=== PATIENT | female | born 1990 | race Caucasian/White ===

== ENCOUNTER 2021-08-18 04:40 | Emergency (ER) | payer OTHER, SELFPAY ==
[2021-08-18] VITALS (10 sets, daily range): BP systolic 105–126; BP diastolic 49–80; PULSE 81–96; RESP 15–19; TEMP 36.1–36.3; O2SAT 99–100; BMI 35.0
--- NOTE | 2021-08-18 05:05 | ED.GENADULT ---
HPI - General Adult General Chief complaint: Vaginal Bleeding <Kobe Escobar MD - Last Filed: 08/19/21 10:53> Stated complaint: Hemorrhaging <Kobe Escobar MD - Last Filed: 08/19/21 10:53> Time Seen by Provider: 08/18/21 04:40 <Kobe Escobar MD - Last Filed: 08/19/21 10:53> History of Present Illness HPI narrative: 31-year-old woman presenting to the emergency department 7 weeks from a . she had 3 episodes of hemorrhage , 1 intraoperative where she received 2 units of packed cells, then on July 16 her she received an iron infusion and another on August 06 where she received 4 units of packed cells. course also complicated by preeclampsia and chorioamnionitis. She has received a total of 6 units packed red cells. Please see Summation by Dr. Eaton below. in 3 days time is to have a laparoscopy and hysteroscopy. Had continued on iron supplementation. At this visit on August 11 was discontinued on norethindrone transitioned to other oral contraceptive as below. 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 She notes a big gush of Vaginal blood, just poured out. does not notice bleeding at the moment she is flat in the bed But says when she gets up it will likely start pouring out at least historically. She did manage to crawl into the bathtub then and fainted. She is not having any abdominal pain right now but did have some cramps with ambulance on the way in. No fever. she was nauseated. Has received Zofran from EMS. Not nauseated now. Is thirsty. EMS also gave a gram of TXA. What follows here are selections from Dr. Eaton's summary note from clinic visit on 08/11/2021 30-year-old 1 para 1001 presents today for 6 week visit and follow up of recent hospitalization. Patient had a delivery on 06/29/2021 for arrest of descent, failed vacuum, chorioamnionitis, OP presentation asynclitic.. Intraoperative findings at time of were notable for distorted uterine anatomy, including an elongated thin appearance to the uterus and of firm mass surrounding the proximal portion of the right fallopian tube, suspected fibroid. Intraoperative images of this mass are reviewed today, and intraoperative findings are discussed with Dr. Webb, the surgeon in this case. She emphasized that the origin of the right tube was very low, adjacent to the lower uterine segment, and the tube was abnormally short in appearance. Surgery was complicated by intraoperative hemorrhage. Postoperative course was complicated by anemia and she did receive IV iron and 2 units of packed red blood cells. Had chorioamnionitis requiring antibiotics. Patient was readmitted for preeclampsia with severe features in her first week and was treated with IV magnesium. She was on nifedipine for some time, but has not been on it since 07/16/21. BP is normal today. She went on to have two episodes of hemorrhage requiring readmission. The first was 07/16-04/08. She was stable upon presentation. Hb was in 8 range. She reported passage of what looked like tissue prior to presentation, and bleeding subsequently lessened. Pelvic ultrasound showed a thin, uniform endometrial stripe at 5 mm. A fibroid was noted along the left myometrium and serosa of the lower uterine segment measuring 5.4 cm which is erroneously described as 5.4 mm in the report. Bleeding remained scant throughout hospital course. She was treated with oral methergine with the empiric diagnosis of subinvolution of placental implantation site. She was seen by Yeni Scherer at 2 weeks . May ordered a repeat pelvic ultrasound. Findings this time were notable for an area of hypoechoic fluid with areas of mixed echogenicity measuring 3.3 by 2.8 x 2.3 cm in the region of the previously described fibroid. Uterus was of normal dimensions. Endometrial stripe 4 mm. Ovaries were normal. The impression was that of a hematoma adjacent to the scar within the left side of the lower uterine segment. She was readmitted August 06 through 08/07/2021 for hemorrhage. Hemoglobin decreased from 9.2-7.8 during this time. She was treated with high-dose Provera, 3 times a day, and continues at this dose today. MRI ordered during the hospitalization on 08/06/2021 showed fluid consistent with blood in the uterine cavity communicating with a 3.5 x 2.8 x 2.6 cm fluid pocket in the left uterine wall at the level of the scar. She was transfused 4 u PRBCs and discharge Hb was 9.9. Assessment 1. Six weeks status post primary transverse section for arrest of descent 2. Status post readmission for severe preeclampsia 1st week . Now normotensive off antihypertensives. 3. Suspected uterine anomaly at time of . 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 4. Maddie tubal mass at time of . Well this mass was described along the right, abnormal appearing tube, that was implanted low in the uterus, all subsequent imaging has suggested an abnormality along the left incision. It is variously been described as a fibroid, a fluid collection, abscess versus hematoma. 5. 2 episodes of hemorrhage , 1 occurring last week. He not suspect retained products of conception given the appearance of her endometrial stripe. I do not suspect infection given that she is afebrile and has had a normal white count. I no longer suspect sub involution of the implantation site, given that she is 6 weeks . I am concerned about the variable appearance of this maddie tubal mass and any contribution it may have to her bleeding. 6. Situational anxiety 7. Ringworm on dorsum of right hand and wrist Plan Begin to clotrimazole 1% cream twice daily for 2 weeks for treatment of ringworm. After extended discussion of contraceptive options, I favor combined oral contraceptives. I do not support insertion of a Mirena IUD with any concerns regarding the healing of the scar. Neither can I support placement of Nexplanon at this time, is Nexplanon may be associated with erratic bleeding. Prescription of Loestrin to be sent to the pharmacy. Begin treatment of situational anxiety with hydroxyzine 25-50 mg 4 times a day as needed. After extended discussion with Dr. 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 Specifically, I plan to recommend laparoscopy with excision of this mass or drainage of this fluid collection, possible removal of the right tube, and hysteroscopy. I have contacted Dr. Chua in radiology, who plans to review the 2 US and one MRI and get back to me. I will contact patient with these recommendations. We initially planned on f/u visit in 2 weeks, but I will call her before this time. I recommend continuation of ferrous sulfate for anemia. 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 2009 Encounter for supervision of normal first , first trimester Obesity (BMI 35.0-39.9 without comorbidity) Abdominal pain Anemia Anemia due to acute blood loss delivery delivered Chorioamnionitis, delivered, current hospitalization Delayed hemorrhage Lactating mother bleeding Pre-eclampsia Pre-eclampsia, severe, condition Uterine fibroid <Kobe Escobar MD - Last Filed: 08/19/21 10:53> Related Data Home medications: Home Medications Medication Instructions Recorded Confirmed hydroxyzine pamoate 25 mg capsule mg 08/18/21 iron 08/18/21 norethindrone acetate 1.5 tab 08/18/21 mg-ethinyl estradiol 30 mcg tablet (Junel) ondansetron HCl 4 mg tablet mg 08/18/21 vits no.130-ferrous fum tab 08/18/21 27 mg iron-folic acid 800 mcg tablet ( Vitamin) <Kobe Escobar MD - Last Filed: 08/19/21 10:53> Allergies/adverse reactions: Allergies Allergy/AdvReac Type Severity Reaction Status Date / Time promethazine Allergy Intermediate Verified 08/19/21 10:26 <Kobe Escobar MD - Last Filed: 08/19/21 10:53> Review of Systems Status of ROS: Reports: 10 or more systems reviewed and unremarkable except as noted in History and below <Kobe Escobar MD - Last Filed: 08/19/21 10:53> [facility] Social History: Social History Smoking Status: Never smoker How often do you have a drink containing alcohol: 2-4 times a month How often do you have six or more drinks on one occasion: Never AUDIT-C Alcohol total score: 2 Non-prescribed substance use: denies use service: No <Kobe Escobar MD - Last Filed: 08/19/21 10:53> Exam Narrative: Exam Narrative: Calm. Pleasant. Seems a little blunted affect. Skin is warm and dry. There is blood staining the left lower leg and foot. IV has been placed in the left foot. Oropharynx a little sticky breathing easily. Lungs appear to be clear. CV RRR no mrg appreciated. Abdomen is soft. Mild soreness in the suprapubic area. Abdominal striae a are noted. Quick evaluation labial area shows oozing of older blood between the labia. Blood is clotting. extremities as above. Moving all extremities without difficulty. well perfused peripherally.. <Kobe Escobar MD - Last Filed: 08/19/21 10:53> Const: Vital Signs, click to edit/add: Vital Signs - 24 hr 08/18/21 10:00 Temperature 97.3 F L Pulse Rate [Apical ] 90 Respiratory Rate 18 Blood Pressure [Le ft Upper Arm] 126/72 Pulse Oximetry 100 <Kobe Escobar MD - Last Filed: 08/19/21 10:53> Course Course Hospital Course: over time here Ms. Castelan Has remained vitally well. I did do recheck exam with speculum. There does not appear to be new/active bleeding. Perhaps some oozing of some old blood definitely less than with 1st exam. This is visualized at the distal aspect of the speculum. Hemoglobin returned at 9.2 with hematocrit of 28.2. This was collected after 2 L of fluid resuscitation. Surely not fully normalized otherwise. Did speak to Dr. Hartmann on-call with Ob. Understandably no interventions planned at this time. I had discussed potential admission for serial hemoglobins. I am anticipating recheck here in the emergency department with further recommendations pending that result. Ms. Castelan does have a preoperative visit tomorrow where I anticipate repeat hemoglobin and potential need for pre op transfusion. <Kobe Escobar MD - Last Filed: 08/19/21 10:53> Vital Signs Vital signs: Initial Vital Signs Temperature 96.9 F L 08/18/21 04:40 Temperature Source Temporal Artery Scan 08/18/21 04:40 Pulse Rate 85 08/18/21 04:40 Pulse Rhythm 08/18/21 04:40 Respiratory Rate 18 08/18/21 04:40 Blood Pressure 109/70 08/18/21 04:40 Blood Pressure Mean 83 08/18/21 04:40 Blood Pressure Position Supine 08/18/21 04:40 Pulse Oximetry 100 08/18/21 04:40 Oxygen Delivery Method 08/18/21 04:40 Vital Signs Temperature 96.9 F L 08/18/21 04:40 Pulse Rate 85 08/18/21 04:40 Respiratory Rate 18 08/18/21 04:40 Blood Pressure 109/70 08/18/21 04:40 Pulse Oximetry 100 08/18/21 04:40 Temperature 97.3 F L 08/18/21 10:00 Pulse Rate 90 08/18/21 10:00 Respiratory Rate 18 08/18/21 10:00 Blood Pressure 126/72 08/18/21 10:00 Pulse Oximetry 100 08/18/21 10:00 <Kobe Escobar MD - Last Filed: 08/19/21 10:53> Medical Decision Making MDM Narrative Medical decision making narrative: Hand off at change of shift pending repeat hemoglobin <Kobe Escobar MD - Last Filed: 08/19/21 10:53> Medical Records Medical records reviewed: Yes I reviewed the patient's medical records <Kobe Escobar MD - Last Filed: 08/19/21 10:53> Medical records narrative: I discussed this case with Dr. Hartmann. understanding nothing medically to do at this time and given complicated case best to be cared for by prior provider with plan has already been put in place. Recommending close followup tomorrow which would correlate with preoperative evaluation already scheduled. <Kobe Escobar MD - Last Filed: 08/19/21 10:53> Lab Data Lab results reviewed: Yes I reviewed the patient's lab results <Kobe Escobar MD - Last Filed: 08/19/21 10:53> Labs: Lab Results 08/18/21 08/18/21 08/18/21 Range/Units 06:33 06:33 06:33 WBC 12.26 H (4.50-11.00) K/uL RBC 3.02 L (4.00-5.20) m/uL Hgb 9.2 L (12.0-16.0) gm/dL Hct 28.2 L (33.0-51.0) % MCV 93 (80-100) fL MCH 31 (26-34) pg MCHC 33 (32-36) gm/dL RDW Coeff of Kay 12.8 (11.5-15.5) % Plt Count 303 (140-440) K/uL Neut % (Auto) 84.4 H (42.0-72.0) % Lymph % (Auto) 10.4 L (20-44) % Gibson % (Auto) 3.6 (0.0-11.0) % Eos % (Auto) 0.7 (0.0-7.0) % Baso % (Auto) 0.2 (0.0-3.0) % Neut # (Auto) 10.30 H (1.7-7.0) K/uL Lymph # (Auto) 1.30 (0.90-2.90) K/uL Gibson # (Auto) 0.40 (0.00-0.90) K/UL Eos # (Auto) 0.10 (0.00-0.50) K/uL Baso # (Auto) 0.00 (0.00-0.30) K/uL Abs Immat Gran (auto) 0.08 (0.00-0.30) K/uL Sodium 139 (135-149) mmol/L Potassium 4.1 (3.6-5.1) mmol/L Chloride 113 (96-114) mmol/L Carbon Dioxide 21 (20-32) mmol/L BUN 11 (5-24) mg/dL Creatinine 1.0 (0.5-1.5) mg/dL Estimated Creat Clear 81.47 Glucose 107 (60-115) mg/dL Calcium 7.7 L (8.4-10.6) mg/dL Total Bilirubin 0.2 (0.1-1.5) mg/dL Direct Bilirubin 0.2 (0.0-0.5) mg/dL AST 14 (12-35) U/L ALT 9 (4-35) U/L Alkaline Phosphatase 54 (40-150) U/L Total Protein 5.3 L (6.0-8.3) g/dL Albumin 3.2 L (3.3-5.0) g/dL SARS-CoV-2 (PCR) (Negative) Blood Type O Positive Antibody Screen NEGATIVE Crossmatch (AHG) See Detail 08/18/21 08/18/21 Range/Units 08:12 09:10 WBC 10.32 (4.50-11.00) K/uL RBC 2.98 L (4.00-5.20) m/uL Hgb 8.9 L (12.0-16.0) gm/dL Hct 27.9 L (33.0-51.0) % MCV 94 (80-100) fL MCH 30 (26-34) pg MCHC 32 (32-36) gm/dL RDW Coeff of Kay (11.5-15.5) % Plt Count 316 (140-440) K/uL Neut % (Auto) (42.0-72.0) % Lymph % (Auto) (20-44) % Gibson % (Auto) (0.0-11.0) % Eos % (Auto) (0.0-7.0) % Baso % (Auto) (0.0-3.0) % Neut # (Auto) (1.7-7.0) K/uL Lymph # (Auto) (0.90-2.90) K/uL Gibson # (Auto) (0.00-0.90) K/UL Eos # (Auto) (0.00-0.50) K/uL Baso # (Auto) (0.00-0.30) K/uL Abs Immat Gran (auto) (0.00-0.30) K/uL Sodium (135-149) mmol/L Potassium (3.6-5.1) mmol/L Chloride (96-114) mmol/L Carbon Dioxide (20-32) mmol/L BUN (5-24) mg/dL Creatinine (0.5-1.5) mg/dL Estimated Creat Clear Glucose (60-115) mg/dL Calcium (8.4-10.6) mg/dL Total Bilirubin (0.1-1.5) mg/dL Direct Bilirubin (0.0-0.5) mg/dL AST (12-35) U/L ALT (4-35) U/L Alkaline Phosphatase (40-150) U/L Total Protein (6.0-8.3) g/dL Albumin (3.3-5.0) g/dL SARS-CoV-2 (PCR) Negative SARS-CoV-2 (Negative) Blood Type Antibody Screen Crossmatch (AHG) <Kobe Escobar MD - Last Filed: 08/19/21 10:53> Discharge Plan Discharge Clinical Impression: Vaginal bleeding <Kobe Escobar MD - Last Filed: 08/19/21 10:53> Patient Disposition: Home w/ Parent or Adult <Kobe Escobar MD - Last Filed: 08/19/21 10:53> Condition: Stable <Kobe Escobar MD - Last Filed: 08/19/21 10:53> Additional Instructions: Please follow-up with preoperative appointment tomorrow as scheduled. of course return to the emergency department for repeat syncopal event, worsening lightheadedness or shortness of breath, soaking through 1 heavy pad an hour for 2 consecutive hours, fever. stay well hydrated. <Kobe Escobar MD - Last Filed: 08/19/21 10:53> Prescriptions: No Action ondansetron HCl 4 mg tablet 0RF norethindrone ac-eth estradiol [ ()] 1.5-30 mg-mcg tablet 0RF Label Comments: TAKE ONE TABLET BY MOUTH EVERY DAY hydroxyzine pamoate 25 mg capsule 0RF Label Comments: TAKE ONE TO TWO CAPSULES BY MOUTH EVERY 6 HOURS NEEDED Vitamin 27 mg iron- 800 mcg tablet 0RF Label Comments: TAKE ONE TABLET BY MOUTH EVERY DAY iron 0RF <Kobe Escobar MD - Last Filed: 08/19/21 10:53> Follow Up/Referrals: Carmenza Munoz MD [Staff Physician] - <Kobe Escobar MD - Last Filed: 08/19/21 10:53> Stand Alone Forms: MyHealth Info Instructions <Kobe Escobar MD - Last Filed: 08/19/21 10:53>
[2021-08-18] MEDS: 0.9 % SODIUM CHLORIDE 1000 ml 1,000 ML IV (05:25)
--- NOTE | 2021-08-18 06:00 | ED.NURSE ---
several IV attempts by this RN and Tayo Sup. HS calling in anesthesia for second IV access
--- NOTE | 2021-08-18 06:06 | ED.NURSE ---
lab called for draw
[2021-08-18 07:12] LABS: Albumin* 3.2 g/dL (3.3-5.0); Chloride* 113 mmol/L (96-114); Sodium* 139 mmol/L (135-149)
[2021-08-18 07:13] LABS: Potassium* 4.1 mmol/L (3.6-5.1)
[2021-08-18 07:15] LABS: Alanine Aminotransferase* 9 U/L (4-35); Alkaline Phosphatase* 54 U/L (40-150); Aspartate Amino Transferase* 14 U/L (12-35); Bilirubin Direct* 0.2 mg/dL (0.0-0.5); Bilirubin Total* 0.2 mg/dL (0.1-1.5); Blood Urea Nitrogen* 11 mg/dL (5-24); Calcium* 7.7 mg/dL (8.4-10.6); Carbon Dioxide* 21 mmol/L (20-32); Est. Creatinine Clearance* 81.47; Estimated Glomerular Filt Rate 76.76; Glucose* 107 mg/dL (60-115); Total Protein* 5.3 g/dL (6.0-8.3)
--- NOTE | 2021-08-18 07:37 | ED.NURSE ---
OB brought pt breast pump to use.
[2021-08-18 07:52] LABS: Basophils Percent Auto 0.2 % (0.0-3.0); Eosinophils Percent Auto 0.7 % (0.0-7.0); Hematocrit 28.2 % (33.0-51.0); Hemoglobin* 9.2 gm/dL (12.0-16.0); Immature Granulocytes Abs Auto 0.08 K/uL (0.00-0.30); Lymphocytes Percent Auto 10.4 % (20-44); Mean Corpuscular HGB Conc 33 gm/dL (32-36); Mean Corpuscular Hemoglobin 31 pg (26-34); Mean Corpuscular Volume 93 fL (80-100); Monocytes Percent Auto 3.6 % (0.0-11.0); Neutrophils Percent Auto 84.4 % (42.0-72.0); Platelet Count* 303 K/uL (140-440); RDW Coefficient of Variation % 12.8 % (11.5-15.5); Red Blood Count 3.02 m/uL (4.00-5.20); White Blood Count* 12.26 K/uL (4.50-11.00)
[2021-08-18 07:57] LABS: Slide Review Reflex No
[2021-08-18 09:24] LABS: SARS PCR* Negative SARS-CoV-2 (Negative)
[2021-08-18 09:25] LABS: Hematocrit 27.9 % (33.0-51.0); Hemoglobin* 8.9 gm/dL (12.0-16.0); Mean Corpuscular HGB Conc 32 gm/dL (32-36); Mean Corpuscular Hemoglobin 30 pg (26-34); Mean Corpuscular Volume 94 fL (80-100); Platelet Count* 316 K/uL (140-440); Red Blood Count 2.98 m/uL (4.00-5.20); White Blood Count* 10.32 K/uL (4.50-11.00)
[2021-08-18 09:29] LABS: Slide Review Reflex No
--- NOTE | 2021-08-18 10:08 | ED.NURSE ---
Left AC saline lock left in place for anticipation of her pre-op appointment tomorrow. Note sent with pt to remove IV if not needed.
== END 2021-08-18 10:08 | disposition home or self-care (01) ==
PROVIDERS: Emergency Provider Family Medicine
DX: O72.1 Other immediate postpartum hemorrhage (principal)
CPT/HCPCS: 36415; 80048; 80076; 85018; 85025; 85027; 86850; 86900; 86901; 86922; 87635; 99283; J7030

== ENCOUNTER 2021-11-01 11:26 | Outpatient (CLI) | payer OTHER, SELFPAY ==
--- OUTSIDE RECORDS SUMMARY | 2021-11-01 11:28 | XMS_ITS | Encounter Summary ---
:1990 Author Organization [facility] Address [address] [place] [address] Care Team Providers Name Role Phone Unavailable Primary Care Provider Unavailable Reason for Visit Reason Comments Consult Outpatient (Routine) - Closed Specialty Diagnoses / Procedures Referred By Contact Refer red To Contact Radiology Sadia Kelley APRN[facility] [address] [place] [address] Referral ID Status Reason Start Date Expiration Date Visits Requ ested Visits Authorized [id number] Closed 08/22/2021 08/22/2022 1 1 Encounter Details Date Type Department Care Team Description 08/26/2021 Office Visit Department of Sadia Kelley, Carolyn Delayed (HCC) (Primary Dx); Radiology, [facility] Jordon SUBRAMANIANNPriyaPPriya, [place] [address] [place] [address] [address] [place] [phone] Social History Tobacco Use Types Packs/Day Years Used Date Smoking Tobacco: Never Assessed Sex Assigned at Date Recorded Not on file documented as of this encounter Progress Notes Sadia Kelley APRN C.N.PPriya, M.S.N. - 08/26/2021 3:00 PM CDT SUBJECTIVE REASON FOR CONSULT Referring Provider: Sadia Kelley APRN, C.N.PPriya, M.S.N. Chief Complaint/Reason for Consult: Consult HISTORY OF PRESENT ILLNESS Ms. Castelan is a 31 y.o. female who underwent a on June 29, 2021. Since that time she continues to have bleeding. We received a call from her provider in [place] as there is concerns for an AV fistula of the uterus. She underwent a CTA of the abdomen and pelvis today which shows no definitive vascular lesion in the uterus or pelvis to account for persistent bleeding. Based on these findings we will plan on proceeding with pelvic angiogram tomorrow. Ms. Castelan reports ongoing vaginal spotting since the of her son on June 29, 2021. She has had 3 spontaneous hemorrhage episodes requiring emergency room intervention. These episodes occurred on July 16, August 05, and August 18. She notes the episode on August 05 lasted 6 hours. The episode on August 18 lasted 2 hours. She notes when these episodes occur the amount of blood loss is copious and she often lays down in the bathtub due to the high volume. In addition, she has lost consciousness during several of these episodes. The following portions of the patient's history were reviewed and updated as appropriate: past medical history, allergies and current medications. REVIEW OF SYSTEMS Pertinent items noted in HPI, all other review of systems are negative OBJECTIVE PHYSICAL EXAMINATION Pulmonary Effort: Pulmonary effort is normal. Neurological Mental Status: She is alert. Psychiatric Mood and Affect: Mood normal. DIAGNOSTICS Lab Results Component Value Date/Time HGB 10.2 (L) 08/26/2021 08:29 AM HGB 14.5 01/03/2018 11:41 AM HCT 31.4 (L) 08/26/2021 08:29 AM HCT 42.0 01/03/2018 11:41 AM PLT 314 08/26/2021 08:29 AM PLT 268 01/03/2018 11:41 AM , Lab Results Component Value Date/Time BUN 12 08/26/2021 08:29 AM CREATININE 1.09 (H) 08/26/2021 08:29 AM EGFRNONBLKAA 67 08/26/2021 08:29 AM CTA abdominal and pelvis August 26, 2021: FINDINGS: VASCULAR FINDINGS: Normal caliber aorta. Widely patent celiac axis, SMA, KVNG, and renal arteries. Widely patent internal iliac arteries and branches. Mild asymmetry in the uterine arterial supply likely represents normal variation and/or status. No evidence of uterine AVM or other pelvic vascular lesion. Patent hepatic and portal vasculature. Retroaortic left renal vein. ADDITIONAL FINDINGS: Unremarkable liver, gallbladder, pancreas, adrenal glands and kidneys. Splenule. Normal caliber small and large bowel. Appendix unremarkable. No adenopathy. 1.3 cm hypoattenuating lesion in the left uterine wall (series 7, image 308). Comparison MRI better demonstrates the continuity of this lesion with the uterine cavity. Both ovaries visualized and normal in appearance. No free pelvic fluid. Expected postoperative changes about the incision with fat stranding; no drainable collections or hematoma. Clear lung bases. No suspicious osseous lesion. ASSESSMENT / PLAN #1 Hemorrhage Delayed (HCC) #2 Hemorrhage Ms. Castelan is scheduled to undergo pelvic angiogram with potential embolization in [facility] on 08/27/21 byDr. Mckeon. Patient presents today to discuss full details of the procedure to include risks, benefits and alternatives. We did discuss that there is a small risk this procedure could cause early menopause and affect future fertility. Procedure scheduled as an outpatient with same day discharge barring no complications develop. 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 Procedure explained in a stepwise fashion. While under moderate sedation, access will be obtained from the femoral artery after which specialty wires and catheters will be used to obtain a pelvic angiogram. Based on findings from the pelvic angiogram we will proceed as indicated. If embolization is indicated this could potentially entail the following embolic agents coils, beads, Gelfoam and/or glue.At the end of the procedure all specialty catheters and wires will be removed. She will require a flat bedrest of 2-4 hours post procedure. She is currently . We did discuss that fentanyl and Versed will most likely cross into the breast milk. I did encourage her to bring a home breast pump with her so she can pump postprocedure. She should proceed to dump her breast milk from her initial pump session postprocedure. Discussed the following preoperative instructions: - Nothing to eat after midnight - Can consume clear liquids such as water or black coffee until two hours prior to procedure - Patient should not take over the counter medications and iron supplement morning of procedure - Report time instructions discussed - Procedure planned as an outpatient with same day discharge barring no complications develop; patient's plans to accompany day of procedure has designated stud driver - Written informed consent will be obtained day of procedure - Patient to follow-up with provider at the [facility] as instructed For any questions or concerns regarding this patient please page Vascular Interventional Radiology [employer] at [phone] Wednesday through Wednesday 7 a.m. to 5 p.m. or Vascular Interventional Radiology on-callresident at [phone] after 5 p.m. and on weekends. I personally spent over half of a total of 29 minutes face to face with patient in counseling and discussion and/or coordination of care as described above. documented in this encounter Plan of Treatment Not on filedocumented as of this encounter Visit Diagnoses Diagnosis Hemorrhage Delayed (HCC) - Pr imary Hemorrhage documented in this encounter
--- OUTSIDE RECORDS SUMMARY | 2021-11-01 11:28 | XMS_ITS | Encounter Summary ---
:[address] [facility] Address [address] [place] [id number] Care Team Providers Name Role Phone Unavailable Primary Care Provider Unavailable Reason for Referral Outpatient (Routine) - Closed Specialty Diagnoses / Procedures Referred By Contact Refer red To Contact Radiology Diagnoses Abnormal Uterine And Vaginal Bleeding Unspecified Other Injury Uterus Initial [facility] Procedures IR Uterine Artery Embolization IR Pelvic Angiogram C.Yesenia, M.S.N. [address] [place] [phone] Referral ID Status Reason Start Date Expiration Date Visits Requ ested Visits Authorized [id number] Closed 08/22/2021 08/22/2022 1 1 RI/CAT/PET Scan (Routine) - Closed Specialty Diagnoses / Procedures Referred By Contact Refer red To Contact Radiology Diagnoses Abnormal Uterine And Vaginal Bleeding Unspecified Other Injury Uterus Initial Sadia Kelley APRN, [facility] Procedures CT Abdomen Pelvis Angiogram with IV Contrast CT Abdomen Angiogram with IV Contrast CA CTA ABDOMEN WO/W CNTRST CA CTA ABD&PELVIS WO/W CNTRST C.N.P., M.S.N. [address] [place] [phone] Referral ID Status Reason Start Date Expiration Date Visits Requ ested Visits Authorized [id number] Closed 08/22/2021 08/22/2022 1 1 utpatient (Routine) - Closed Specialty Diagnoses / Procedures Referred By Contact Refer red To Contact Radiology Sadia Kelley APRN, C.N.A[place], [facility] [address] [place] [phone] Referral ID Status Reason Start Date Expiration Date Visits Requ ested Visits Authorized [id number] Closed 08/22/2021 08/22/2022 1 1 Scheduling Instructions To be done in [facility] with any [place] CTA of abdomen and pelvis to be complete d prior to appointment Appointment to be completed prior to pel khoa angiogram Encounter Details Date Type Department Care Team Description 08/22/2021 Orders Only Department of Sadia Kelley, Abnormal Uterine And Vaginal Bleeding Unspecified (Primary Dx); Radiology, Jovanny SUBRAMANIAN C.N.PPriya, Other Inju ry Uterus Initial Building, in [address] [place] [phone] Social History Tobacco Use Types Packs/Day Years Used Date Smoking Tobacco: Never Assessed Sex Assigned at Date Recorded Not on file documented as of this encounter Plan of Treatment Scheduled Referrals Name Type Priority Associated Order Schedule Diagnoses Interventional Outpatient Referral Routine Expect ed: Radiology office visit 08/22 (clinic) (Approximate), Expires: 11/22/2022 documented as of this encounter Results IR Uterine Artery Embolization (08/27/2021 3:55 PM CDT) Anatomical Region Laterality Modality Pelvis, Vascular Interventional RST LOS, Vascular N/A X-Ray Angiography Interventional ARZ LOS, Vascular Interventional FLA LOS Specimen (Source) Anatomical Collection Method Collection Time Re ceived Time Location / / Volume Laterality 08/27/2021 4:08 PM CDT Impressions 08/27/2021 4:34 PM CDT Uncomplicated bilateral uterine artery embolization. NR Narrative 08/27/2021 4:34 PM CDT EXAM: IR UTERINE ARTERY EMBOLIZATION CLINICAL HISTORY: 31-year-old female 7 w eeks with persistent vaginal bleeding. TECHNIQUE: The right groin was prepped a nd draped in sterile fashion. Using ultrasound guidance to access vessel, patency was shown and aft er anesthetizing the skin with lidocaine the right common femoral artery was punctured successfull y. A permanent image was created and stored. A 5 [place] Joseph 1 sheath was placed. An Omni Flush catheter was used to go up and over the aortic bifurcation. A 4 [place] glide catheter was advanced i nto the anterior division of the left internal iliac artery. Arteriogram demonstrated ectatic, tortuo us uterine artery branches. No active bleeding or arteriovenous communication identified. A microcatheter was used to select the left uterine artery. After confirming satisfactory catheter p osition, the artery was embolized to stasis with Gelfoam. This was confirmed on follow-up arteriog solitario. A SOS catheter was then used to select the left internal iliac artery. The sheath was ad vanced over the catheter into the internal iliac artery. The glide catheter was used to select the ri ght uterine artery. Arteriogram demonstrated no active bleeding or abnormal arteriovenous conne ction. The right uterine arteries were less ectatic and tortuous than the left. There was some c ross communication from the right uterine arteries to the left. Therefore, a microcatheter was adv anced further into the artery and after confirming satisfactory catheter position, the uter ine artery was embolized to stasis with Gelfoam. Catheter and sheath removed. Hemostasis with Aniya o-Seal. No immediate complications. PREPROCEDURE: Patient seen and evaluated . Allergies, pertinent medications, and history reviewed. Discussed risks, benefits, alternatives for procedure, and obtained informed consent. Patient understands information and questions an swered. Immediately prior to starting the procedure, in the presence of the assisting personnel, pro cedural pause was conducted to verify correct patient identity and verification of procedure t o be performed, and as applicable, correct side and site, correct patient position, availability o f implants, special equipment, or special requirements, and all image and specimen identification da ta. The roles and responsibilities of care team members, residents, and fellows were discussed. S edation provided by Anesthesiology. Procedure Note Henri Mckeon M.D. - 08/27/2021For matting of this note might be different from the original. EXAM: IR UTERINE ARTERY EMBOLIZATION CLINICAL HISTORY: 31-year-old female 7 w eeks with persistent vaginal bleeding. TECHNIQUE: The right groin was prepped a nd draped in sterile fashion. Using ultrasound guidance to access vessel, patency was shown and aft er anesthetizing the skin with lidocaine the right common femoral artery was punctured successfull y. A permanent image was created and stored. A 5 [place] Joseph 1 sheath was placed. An Omni Flush catheter was used to go up and over the aortic bifurcation. A 4 [place] glide catheter was advanced i nto the anterior division of the left internal iliac artery. Arteriogram demonstrated ectatic, tortuo us uterine artery branches. No active bleeding or arteriovenous communication identified. A microcatheter was used to select the left uterine artery. After confirming satisfactory catheter p osition, the artery was embolized to stasis with Gelfoam. This was confirmed on follow-up arteriog solitario. A SOS catheter was then used to select the left internal iliac artery. The sheath was ad vanced over the catheter into the internal iliac artery. The glide catheter was used to select the ri ght uterine artery. Arteriogram demonstrated no active bleeding or abnormal arteriovenous conne ction. The right uterine arteries were less ectatic and tortuous than the left. There was some c ross communication from the right uterine arteries to the left. Therefore, a microcatheter was adv anced further into the artery and after confirming satisfactory catheter position, the uter ine artery was embolized to stasis with Gelfoam. Catheter and sheath removed. Hemostasis with Aniya o-Seal. No immediate complications. PREPROCEDURE: Patient seen and evaluated . Allergies, pertinent medications, and history reviewed. Discussed risks, benefits, alternatives for procedure, and obtained informed consent. Patient understands information and questions an swered. Immediately prior to starting the procedure, in the presence of the assisting personnel, pro cedural pause was conducted to verify correct patient identity and verification of procedure t o be performed, and as applicable, correct side and site, correct patient position, availability o f implants, special equipment, or special requirements, and all image and specimen identification da ta. The roles and responsibilities of care team members, residents, and fellows were discussed. S edation provided by Anesthesiology. IMPRESSION: Uncomplicated bilateral uterine artery e mbolization. NR Brooklyn Martinez P.A.-C., M.S. IMG IR PROCEDURES CT Abdomen Pelvis Angiogram with IV Contrast (08/26/2021 9:36 AM CDT) Anatomical Region Laterality Modality Abdomen, Pelvis, Cardiovascular RST N/A Comp uted Tomography, Computed LOS, Abdominal ARZ LOS, Vascular Tomogra phy Interventional ARZ LOS, Abdominal FLA LOS, Vascular Interventional FLA LOS Specimen (Source) Anatomical Collection Method Collection Time Re ceived Time Location / / Volume Laterality 08/26/2021 9:24 AM CDT Impressions 08/26/2021 3:35 PM CDT No definite vascular lesion in the uterus or pelvis to account for the patient's persistent bleeding. Narrative 08/26/2021 3:35 PM CDT EXAM: ??CT ABDOMEN PELVIS ANGIOGRAM WITH IV CONTRAST Including 3D image post-processing. COMPARISON: ??Pelvis MRI 08/06/2021. FINDINGS: VASCULAR FINDINGS: Normal caliber aorta. Widely patent jessica ac axis, SMA, KVNG, and renal arteries. Widely patent internal iliac arteries and branches. Mi ld asymmetry in the uterine arterial supply likely represents normal variation and/or postp artum status. No evidence of uterine AVM or other pelvic vascular lesion. Patent hepatic and portal vasculature. R etroaortic left renal vein. ADDITIONAL FINDINGS: Unremarkable liver, gallbladder, pancrea s, adrenal glands and kidneys. Splenule. Normal caliber small and large bowel. Appendix unremark able. No adenopathy. 1.3 cm hypoattenuating lesion in the lef t uterine wall (series 7, image 308). Comparison MRI better demonstrates the continuity of this lesi on with the uterine cavity. Both ovaries visualized and normal in appearance. No free pelvic flu id. Expected postoperative changes about the incision with fat stranding; no drainabl e collections or hematoma. Clear lung bases. No suspicious osseous lesion. Procedure Note Samir Flaherty M.D. - 08/26/2021Form atting of this note might be different from the original. EXAM: CT ABDOMEN PELVIS ANGIOGRAM WITH I V CONTRAST Including 3D image post-processing. COMPARISON: Pelvis MRI 08/06/2021. FINDINGS: VASCULAR FINDINGS: Normal caliber aorta. Widely patent jessica ac axis, SMA, KVNG, and renal arteries. Widely patent internal iliac arteries and branches. Mi ld asymmetry in the uterine arterial supply likely represents normal variation and/or postp artum status. No evidence of uterine AVM or other pelvic vascular lesion. Patent hepatic and portal vasculature. R etroaortic left renal vein. ADDITIONAL FINDINGS: Unremarkable liver, gallbladder, pancrea s, adrenal glands and kidneys. Splenule. Normal caliber small and large bowel. Appendix unremark able. No adenopathy. 1.3 cm hypoattenuating lesion in the lef t uterine wall (series 7, image 308). Comparison MRI better demonstrates the continuity of this lesi on with the uterine cavity. Both ovaries visualized and normal in appearance. No free pelvic flu id. Expected postoperative changes about the incision with fat stranding; no drainabl e collections or hematoma. Clear lung bases. No suspicious osseous lesion. IMPRESSION: No definite vascular lesion in the uteru s or pelvis to account for the patient's persistent bleeding. Sadia Kelley APRN C.N.P., M.S.N. IMG CT PROCEDURE S documented in this encounter Visit Diagnoses Diagnosis Abnormal Uterine And Vaginal Bleeding Un specified - Primary Other Injury Uterus Initial Abnormal Uterine And Vaginal Bleeding Un specified Other Injury Uterus Initial Hemorrhage Delayed (HCC) - Pr imary Abnormal Uterine And Vaginal Bleeding Un specified Other Injury Uterus Initial Anemia Posthemorrhagic Acute (Blood Loss Anemia) documented in this encounter Additional Health Concerns Infection Onset Date Last Indicated Resolved Time COVID19 Pending 08/26/2021 08/26/2021 08/26/2021 12:17 PM CDT documented as of this encounter
--- OUTSIDE RECORDS SUMMARY | 2021-11-01 11:28 | XMS_ITS | Encounter Summary ---
:1990 Author Organization [facility] Address [address] [place] [address] Care Team Providers Name Role Phone Unavailable Primary Care Provider Unavailable Encounter Details Date Type Department Care Team Description 08/22/2021 Clinical Communication Department of Radiology Oni Collins in [facility] akhil Howard, R.N. [address] [facility] [address] [place] [phone] Social History Tobacco Use Types Packs/Day Years Used Date Smoking Tobacco: Never Assessed Sex Assigned at Date Recorded Not on file documented as of this encounter Miscellaneous Notes Telephone Encounter - Oni Leyva, RPriyaN. - 08/22/2021 1:57 PM CDT Mrs. Castelan called me back and we were able to discuss the appointments that were ordered for her next week. We will schedule labs, COVID testing, the CT scan and a visit with Sadia Kelley NP on Saturday 08/26. A tentative angiogram will be scheduled for 08/27. She will watch her patient portal for times and locations of these appointments. We will go over the specifics of the procedure during the APPvisit. She has my contact information if she has any questions prior to the next week. Telephone Encounter - Oni Leyva R.N. - 08/22/2021 1:05 PM CDT I left a voicemail with Mrs. Castelan. I am looking to discuss the scheduling of an ct scan, clinic visit and angiogram. I left my contact information for her to call me back. documented in this encounter Plan of Treatment Not on filedocumented as of this encounter Visit Diagnoses Not on filedocumented in this encounter
--- OUTSIDE RECORDS SUMMARY | 2021-11-01 11:28 | XMS_ITS | Clinical Summary ---
:1990 Author Organization [facility] Address [address] [place] [address] Care Team Providers Name Role Phone Unavailable Primary Care Provider Unavailable Source Comments Patient records contain information from all sites at [facility]. For routine questions regarding patient records, call [phone] during business hours, M-F 8:00 AM - 5:00 PM Central Time. Record requests for emergency care only can be directed to [phone] at any time.[facility] Allergies Active Allergy Reactions Severity Noted Date Comments Promethazine Other (see comments) 05/17/2007 seizure s Medications Medication Sig Dispensed Refills Start Date End Date Status clotrimazole APPLY ONE 0 08/12/2021 Active (LOTRIMIN) 1 % cream APPLICATION TOPICALLY TWO TIMES A DAY fluticasone INSTILL 2 SPRAYS 0 02/13/2015 Active propionate (FLONASE) INTO EACH NOSTRIL 50 mcg/actuation EVERY DAY nasal spray ondansetron (ZOFRAN) TAKE ONE TABLET BY 0 08/19/2021 Active 4 mg tablet MOUTH EVERY 4 TO 6 HOURS NEEDED ferrous sulfate 325 Take 325 mg by 0 Active mg (65 mg iron) mouth 2 (two) times tablet a day. docusate sodium Take 100 mg by 0 Active (COLACE) 100 mg mouth 2 (two) times capsule a day. VIT Take by mouth 0 Act bonnie [id number] daily. ORAL hydrOXYzine Take 25-50 mg by 0 A ctive (VISTARIL) 25 mg mouth every 6 (six) capsule hours as needed for anxiety. acetaminophen Take 2 tablets 0 08/28/2021 Active (TYLENOL) 500 mg (1,000 mg total) by tablet mouth every 6 (six) hours as needed for pain. naloxone (NARCAN) 4 Administer 1 spray 2 each 0 08/28/2021 Active mg/actuation nasal (4 mg total) into spray one nostril as needed for reversal. Use 1 spray in 1 nostril. Repeat with second device in other nostril after 2-3 minutes if no or minimal response. ibuprofen Take 3 capsules 0 08/28/2021 Act bonnie (ADVIL,MOTRIN) 200 mg (600 mg total) by capsule mouth every 6 (six) hours as needed for pain. June, Take 1 tablet by 0 08/28/2021 Active 1.5-30 mg-mcg tablet mouth daily. Active Problems Problem Noted Date Hemorrhage Delayed 08/27/2021 Anemia Posthemorrhagic Acute (Blood Loss Anemia) 08/27 Syncope 08/27/2021 Encounters Date Type Specialty Care Team Description 09/03/2021 Clinical Radiology Sadia Kelley Communication R, PLANNER INTERN, C.N.P., M.S.N. 08/27/2021 Anesthesia Event Radiology Rod Burton APRN, [employer]SULTANT, DNAP Zoltan Felder M.D. 08/27/2021 - Hospital Encounter Sadia Kelley Hemorr ingrid Delayed (HCC) (Primary Dx); 08/28/2021 R, PLANNER INTERN, Abnormal Uterin e And Vaginal Bleeding Unspecified; C.N.P., M.S.N. Other Injury Uterus Initial Alf De Luna M.D., Ph.D. Henri Mckeon M.D. Aird, Gregory A, M.D. 08/26/2021 Office Visit Radiology Sadia Kelley Hemorrhage P ostpartum Delayed (HCC) (Primary Dx); R, PLANNER INTERN, Hemorrhage C.N.P., M.S.N. 08/26/2021 Hospital Encounter Radiology Sadia Kelley Abnorm al Uterine And Vaginal Bleeding Unspecified; R, PLANNER INTERN, Other Injury Ut erus Initial C.N.P., M.S.N. 08/26/2021 Hospital Encounter Laboratory Sadia Kelley Abnorm al Uterine And Medicine R, PLANNER INTERN, Vaginal Bleedin g C.N.P., M.S.N. Unspecified 08/22/2021 Orders Only Radiology Gordon, Encounter For P reprocedural Laboratory Examination (COVID-19) (Primary Dx); Oni Howard R.N. Negative COVID- 19 Test (Contact With And (Suspected) Exposure To COVID-19); Abnormal Uterin e And Vaginal Bleeding Unspecified 08/22/2021 Clinical Radiology Gordon, Communication Oni Howard R.N. 08/22/2021 Orders Only Radiology Sadia Kelley Abnormal [place] rine And Vaginal Bleeding Unspecified (Primary Dx); R, PLANNER INTERN, Other Injury Ut erus Initial C.N.P., M.S.N. 08/19/2021 Community Orders Tsering Eaton, Abnormal Uterine And Vaginal Bleeding Unspecified (Primary Dx); M.D. Hemorrhage from Last 3 Months Social History Tobacco Use Types Packs/Day Years Used Date Smoking Tobacco: Never Smokeless Tobacco: Never Alcohol Use Standard Drinks/Week Comments Not Currently 0 (1 standard drink = 0.6 oz pure alcoho l) Sex Assigned at Date Recorded Not on file Last Filed Vital Signs Vital Sign Reading Time Taken Comments Blood Pressure 120/65 08/28/2021 10:20 AM CDT Pulse 83 08/28/2021 10:20 AM CDT Temperature 36.7 ??C (98.1 ??F) 08/28/2021 10:20 AM CDT Respiratory Rate 16 08/28/2021 10:20 AM CDT Oxygen Saturation 98% 08/28/2021 10:20 AM CDT Inhaled Oxygen Concentration - - Weight 109 kg (239 lb 3.2 oz) 08/27/2021 6:15 PM CDT Height 172.7 cm (5' 8) 08/27/2021 6:15 PM CDT Body Mass Index 36.37 08/27/2021 6:15 PM CDT Plan of Treatment Health Maintenance Due Date Last Done Comments Cervical Cancer Screening 1990 HIV Screening 1990 Hepatitis C Screening 1990 Depression Screening 02/15/2021 (Annual PHQ-2) COVID-19 Vaccine (4 - 03/25/2021 01/28/2021, 06/12/2020, Booster for Pfizer series) 05/22/2020 Influenza Vaccine (#1) 2021 03/10/2021, 02/21/2010 DTaP,Tdap,and Td Vaccines 04/23/2031 04/22/2021, 10/15/2011 , (8 - Td or Tdap) 08/28/1994, Additional history exists Hepatitis B Vaccines Completed 09/21/1995, 04/02/1995, 08/28/1994 Pneumococcal vaccine (0-64 Aged Out No lo nger eligible years) based on patient 's age to complete this topic Procedures Procedure Name Priority Date/Time Associated Comments Diagnosis ADULT OXYGEN Routine 08/27/2021 4:41 THERAPY PM CDT ADULT OXYGEN Routine 08/27/2021 4:41 THERAPY PM CDT ADULT OXYGEN Routine 08/27/2021 3:57 THERAPY PM CDT IR UTERINE ARTERY RAD - Routine 08/27/2021 3:55 Abnormal Uterine Re sults for EMBOLIZATION (most inpatients PM CDT And Vaginal this proced ure and all Bleeding are in the outpatients) Unspecified results Other Injury Uterus section. Initial LDA ANE Routine 08/27/2021 3:18 Results for NON-SURGICAL AIRWAY PM CDT this pro cedure are in the results section. CT ABDOMEN PELVIS RAD - Routine 08/26/2021 9:36 Abnormal Uterine Re sults for ANGIOGRAM WITH IV (most inpatients AM CDT And Vaginal this p rocedure CONTRAST and all Bleeding are in the outpatients) Unspecified results Other Injury Uterus section. Initial BASIC METABOLIC Routine 08/26/2021 8:29 Abnormal Uterine Resul ts for PANEL, S/P AM CDT And Vaginal this procedure Bleeding are in the Unspecified results section. CBC WITHOUT Routine 08/26/2021 8:29 Abnormal Uterine Results for DIFFERENTIAL, B AM CDT And Vaginal this procedu re Bleeding are in the Unspecified results section. SARS COV-2 RNA, Routine 08/26/2021 7:39 Encounter For Results for PCR, VARIES AM CDT Preprocedural this procedure Laboratory are in the Examination results (COVID-19) section. Negative COVID-19 Test (Contact With And (Suspected) Exposure To COVID-19) OUTSIDE MR BODY Routine 08/06/2021 Results for 11:05 AM CDT this procedure are in the results section. from Last 3 Months Results IR Uterine Artery Embolization (08/27/2021 3:55 [...] image was created and stored. A 5 Sudanese Joseph 1 sheath was placed. An Omni Flush catheter was used to go up and over the aortic bifurcation. A 4 Sudanese glide catheter was advanced i nto the [...] image was created and stored. A 5 Sudanese Joseph 1 sheath was placed. An Omni Flush catheter was used to go up and over the aortic bifurcation. A 4 Sudanese glide catheter was advanced i nto the [...] Brooklyn Martinez P.A.-C., M.S. IMG IR PROCEDURES LDA ANE NON-SURGICAL AIRWAY (08/27/2021 3:18 PM CDT) Narrative Rod Burton APRN, WYATT, DNAP - 3:18 PM CDT Rod Burton APRN, CRNA DNAP ? 08/27/2021 ??3:40 PM Airway Date/Time: 08/27/2021 3:18 PM Performed by: Rod Burton APRN, CR NA, DNAP Authorized by: Zoltan Felder M.D., M.S . Patient location during procedure: OR / Procedure Area PROCEDURE DETAILS: Mask difficulty assessment: not attempte d Final airway type: supraglottic airway Laryngeal Manipulation: no ?? Supraglottic device: LMA unique ?? Supraglottic device size: 5 ?? Adult device size: 5 Number of attempt to successful placemen t: 1 Airway confirmation: bilateral breath so unds, positive ETCO2 and bilateral chest rise Other previous techniques attempted: non e Additional Comments Intraprocedure conversion from MAC to GA (patient unable to hold still enough for proceduralist). Uncomplicated LMA placement. ?? PRE PROCEDURE DETAILS: Pre evaluation for airway management: pr ocedure Urgency: elective Preop assessment of probable difficulty: questionable / suspicious difficult airway Preoxygenation: bag valve mask SEDATION / ANESTHESIA Anesthesia method: anesthesia POST PROCEDURE DETAILS: ? Procedure outcome: successful ?? Airway event: no complications Zoltan Felder M.D. ANESTHESIA ORDERABLES CT Abdomen Pelvis Angiogram with IV Contrast [...] to account for the patient's persistent bleeding. Beverly Kidd APRN.N.Harper., M.S.N. IMG CT PROCEDURE S (ABNORMAL) CBC without Differential (08/26/2021 8:29 AM CDT) [facility] gist Method Time Signature Hemoglobin 10.2 (L) 11.6 - 08/26/2021 DTL 15.0 g/dL 9:02 AM CDT Hematocrit 31.4 (L) 35.5 - 08/26/2021 DTL 44.9 % 9:02 AM CDT Erythrocytes 3.33 (L) 3.92 - 08/26/2021 DTL 5.13 9:02 AM CDT x10(12)/L MCV 94.3 78.2 - 08/26/2021 DTL 97.9 fL 9:02 AM CDT RBC Distrib Width 14.0 12.2 - 08/26/2021 DTL 16.1 % 9:02 AM CDT Platelet Count 314 157 - 371 08/26/2021 DTL x10(9)/L 9:02 AM CDT Leukocytes 8.9 3.4 - 9.6 08/26/2021 DTL x10(9)/L 9:02 AM CDT Specimen Anatomical Collection Method Collection Time Receive d Time (Source) Location / / Volume Laterality Blood (Blood, 08/26/2021 8:29 AM 08/27/19 8:50 Venous) CDT AM CDT Beverly Kidd APRN.N.P., M.S.N. LAB BLOOD ADD-ON Performing Organization Address City/State/ZIP Code Phon e Number [facility] - [address] [place], [place] [address] [facility] [place] [address] Laboratories-[facility] [address] (ABNORMAL) Basic Metabolic Panel (08/26/2021 8:29 AM CDT) Analysis Performed At Patho logist Time Signature Potassium, S 4.2 3.6 - 5.2 08/26/2021 DTL mmol/L 9:30 AM CDT Sodium, S 138 135 - 145 08/26/2021 DTL mmol/L 9:30 AM CDT Chloride, S 104 98 - 107 08/26/2021 DTL mmol/L 9:30 AM CDT Bicarbonate, S 20 (L) 22 - 29 08/26/2021 DTL mmol/L 9:30 AM CDT Anion Gap 14 7 - 15 08/26/2021 DTL 9:30 AM CDT BUN (Blood Urea 12 6 - 21 08/26/2021 DTL Nitrogen), S mg/dL 9:30 AM CDT Creatinine 1.09 (H) 0.59 - 08/26/2021 DTL 1.04 mg/dL 9:30 AM CDT eGFR-Non 67 >=60 08/26/2021 DTL Black/ mL/min/BSA 9:30 AM CDT Dutch Comment: ----ADDITIONAL INFORMATION---- Estimated GFR calculated using the 2009 CKD_EPI creatinine equation. eGFR-Black/ 78 >=60 mL/min/BSA 2021 9:30 AM CDT DTL Comment: ----ADDITIONAL INFORMATION---- Estimated GFR calculated using the 2009 CKD_EPI creatinine equation. Calcium, Total, S 9.1 8.6 - 10.0 mg/dL 08/26/2021 9:30 AM CDT DTL Glucose, S 91 70 - 140 mg/dL 08/26/2021 9:30 AM CDT D TL Specimen Anatomical Collection Method Collection Time Receive d Time (Source) Location / / Volume Laterality Blood (Blood, 08/26/2021 8:29 AM 08/27/19 9:08 Venous) CDT AM CDT Sadia Kelley APRN, C.N.P., M.S.N. LAB BLOOD ADD-ON Performing Organization Address City/State/ZIP Code Phon e Number [facility] - [address] SARS CoV-2 RNA, PCR, Varies Asymptomatic (08/26/2021 7:39 AM CDT) [facility] Method Time Signature SARS CoV-2 Swab, 08/26/2021 DTL RNA, PCR, Nasopharynx 12:16 PM Source CDT SARS CoV-2 Undetected Undetected 08/26/2021 DTL RNA, PCR 12:16 PM CDT Comment: SARS-CoV-2 RNA absent. This result does not rule out COVID-19 in the patient, as the sensitivity of the test depends o n the timing of the specimen collection and quality of the specimen. Result should be correlated with patient's history and clinical presentat ion. ----ADDITIONAL INFORMATION---- This RT-PCR test has received Emergency Use Authorization (EUA) by the U.S. Food and Drug Administration an d is used per cattle shipper's instructions. Performance characteristics were verified by [facility] in a manner consistent with CLIA requirements. Visit the CDC website: https://www.cdc.g ov/coronavirus/ for the most recent guidelines on Coron avirus testing. Fact Sheet for Healthcare Providers: https://www.fda.gov/media/430074/downloa d Fact Sheet for Patients: https://www.fda.gov/media/436000/downloa d Specimen Anatomical Collection Method Collection Time Receive d Time (Source) Location / / Volume Laterality Varies 08/26/2021 7:39 AM 8:17 (Nasopharynx) CDT AM CDT Sadia Kelley APRN C.N.P., M.S.N. LAB MICROBIOLOGY - GENERAL ORDERABLES Performing Organization Address City/State/ZIP Code Phon e Number [facility] - [address] PELVIS W/WO CONTRAST-Outside MR Body (08/06/2021 11:05 AM CDT) Specimen (Source) Anatomical Location Collection Method / Collectio n Time Received Time / Laterality Volume Narrative [facility] - 08/22/2021 3:43 PM CDT This order has been created and auto-finalized to support the import of outside images. If available, original i nterpretation can be found on the Media Tab in Chart Review, in Document V iewer, or as an image in QREADS. If a re-interpretation or overread is re quired please follow defined workflow. ?? Provider Not In System IMG MRI PROCEDURES Performing Organization Address City/State/ZIP Code Phon e Number [facility] NA from Last 3 Months Insurance Payer Benefit Plan / Subscriber ID Effective Phone Address T ype Group Dates Ak?Lex [id number] 2020-Pres [phone] [address] PPO OPEN ACCESS ent [address] [place] [address] Advance Directives For more information, please contact: [phone] Latest Code Status on File Code Status Date Activated Date Inactivated Comments Full Code 08/27/2021 4:51 PM 08/28/2021 1:43 PM Full Code: Discussed
--- OUTSIDE RECORDS SUMMARY | 2021-11-01 11:28 | XMS_ITS | Encounter Summary ---
:1990 Author Organization [facility] Address [address] [place] [address] Care Team Providers Name Role Phone Unavailable Primary Care Provider Unavailable Encounter Details Date Type Department Care Team Description 09/03/2021 Clinical Communication Department of Sadia Kelley , Radiology, Jovanny SUBRAMANIAN C.N.P., [facility], [place] [address] [facility] [address] [place] [phone] Social History Tobacco Use Types Packs/Day Years Used Date Smoking Tobacco: Never Smokeless Tobacco: Never Alcohol Use Standard Drinks/Week Comments Not Currently 0 (1 standard drink = 0.6 oz pure alcoho l) Sex Assigned at Date Recorded Not on file documented as of this encounter Miscellaneous Notes Telephone Encounter - Asuncion Heck - 09/03/2021 10:[address] Eaton called in regard to Destini. She previously spoke with Sadia. She would like some clarification on her anatomy after procedure. She can be reached back at [phone]. Thanks! documented in this encounter Plan of Treatment Not on filedocumented as of this encounter Visit Diagnoses Not on filedocumented in this encounter
--- OUTSIDE RECORDS SUMMARY | 2021-11-01 11:28 | XMS_ITS | Encounter Summary ---
:1990 Author Organization [facility] Address [address] [place] [id number] Care Team Providers Name Role Phone Unavailable Primary Care Provider Unavailable Reason for Visit Auth/Cert Specialty Diagnoses / Procedures Referred By Contact Refer red To Contact Diagnoses Abnormal Uterine And Vaginal Bleeding Unspecified Other Injury Uterus Initial Hemorrhage Delayed (HCC) Procedures IR PELVIC ANGIOGRAM Referral ID Status Reason Start Date Expiration Date Visits Requ ested Visits Authorized [id number] 1 1 Encounter Details Date Type Department Care Team Description 08/27/2021 - Hospital Encounter [facility] Jeferson Kelley APRN, C.N.P., M.S.N. [address] [place] [phone] Hemorrhage Delayed (HCC) ([facility] ignacio Dx); [facility] [address] [place] [phone] Abnormal Uterine And Vaginal Bleeding Un specified; [facility], Henri Mckeon M.D. [address] [place] [phone] Other Injury Uterus Initial Neena Lan Gregory A, M.D. [address] [place] [phone] [address] Floor [address] [place] [id number] Social History Tobacco Use Types Packs/Day Years Used Date Smoking Tobacco: Never Smokeless Tobacco: Never Alcohol Use Standard Drinks/Week Comments Not Currently 0 (1 standard drink = 0.6 oz pure alcoho l) Sex Assigned at Date Recorded Not on file documented as of this encounter Last Filed Vital Signs Vital Sign Reading [...] Mass Index 36.37 08/27/2021 6:15 PM CDT documented in this encounter Discharge Summaries Courtney Jones P.A.-C. - 08/28/2021 8:12 AM CDT DISCHARGE SUMMARY Discharge Provider: Alf De Luna M.D., Ph.D. No primary care provider on file. Discharge Provider Team: [facility] Internal Medicine ([facility]) [facility] Medicine 11 ([facility]) Primary Care Provider Phone Number: None Primary Care Provider Fax Number: None Admission Date: 08/27/2021 Discharge Date: 08/28/2021 PRINCIPAL DIAGNOSIS Hemorrhage Delayed (HCC) SECONDARY DIAGNOSES Principal Problem: Hemorrhage Delayed (HCC) Active Problems: Anemia Posthemorrhagic Acute (Blood Loss Anemia) Resolved Problems: * No resolved hospital problems. * DISCHARGE DISPOSITION Home or Self Care [1] ACTIVE ISSUES REQUIRING FOLLOW UP -Limited prescription of oxycodone 5-10 mg q4h prn provided at discharge. Patient reported she may still have around 15 tablets of oxycodone 5 mg from c- section in June, so she will use up those tabletsfirst before filling new prescription for 8 additional tablets if needed. -Per discussion with Pharmacy, should be okay to use breast milk while on limited, short-course of narcotics post-procedure. Recommend observing for adverse reactions in baby including nausea, vomiting, or somnolence for up to 24 hrs after feeding. If baby demonstrates any of those symptoms, would recommend dumping breast milk pumped within 24 hrs of taking the oxycodone. -Continue outpatient follow-up with Obstetrics/Gynecology. OUTPATIENT FOLLOW UP For appointment details refer to your Patient Appointment Guide. TEST RESULTS PENDING AT DISCHARGE Pending Labs None DETAILS OF HOSPITAL STAY REASON FOR ADMISSION Hemorrhage Delayed (HCC) HOSPITAL COURSE Mrs. Destini Castelan is a 31-year-old female admitted for observation following pelvic angiogram with bilateral uterine artery embolization on 08/27/2021 in the setting of ongoing hemorrhage following a 06/29/2021. Procedure was initiated under MAC then converted intraprocedure to general anesthesia. Periprocedural period was uncomplicated. She was given ceftriaxone prophylactically. Post-operative pain was managed with scheduled Tylenol, IV Toradol, Dilaudid FACILITIES MANAGEMENT EXECUTIVE, and prn oxycodone. Pain control improved and shewas weaned off IV narcotics the following morning. She remained afebrile, hemodynamically stable, ambulating independently, and tolerating oral diet prior to discharge home 08/28/2021. MEDICATIONS CHANGED DURING THIS HOSPITAL STAY Medications stopped: none Medications changed: none Medications added: Tylenol, ibuprofen, naloxone, oxycodone CONSULTS ORDERED DURING THIS ADMISSION None CONDITION AT DISCHARGE Stable I saw and evaluated Mrs. Destini Castelan today and provided counseling [id number] at bedside. I personally spent over half of a total 30 minutes in counseling and discussion with the patient and in coordination of care as described above to facilitate the hospital discharge. Discharge instructions wereprovided to the patient and caregiver(s). documented in this encounter Discharge Instructions Discharge Instr - Anastacia Wick APRN, C.N.P. - 08/27/2021 4:01 PM CDT SPECIAL INSTRUCTIONS Care Following Your Catheter Procedure: The information is meant to help you recover after your catheter procedure. After being sedated, it is common to have lapses of memory, slowed reaction time and impaired judgment. Arrange for someone to accompany you to and from your appointment and drive you home. For the rest of the day after being sedated: - Rest - Do not drive or operate motorized vehicles or equipment - Do not take on responsibility for children or anyone who depends on your care - Do not use exercise equipment or take part in rough play or sports - Do not drink alcoholic beverages Care for groin puncture site Call your physician if you have any of the following symptoms: Bleeding or swelling at the puncture site. New or increasing swelling. Pain or discomfort at the puncture site that is not helped by taking acetaminophen (Tylenol???). Signs of infection (redness, drainage, fever) at the puncture site. Change in color, temperature or sensation in the arm or leg of the puncture site. Unusual feelings of weakness or faintness. Bathing You may shower the morning after your procedure. At that time, you may take off the bandage. For three days after your procedure, do not soak in a tub. Keep the site clean and dry. Do not use creams or powders on the puncture site. Discomfort Normally, the site of the puncture is slightly tender and swollen. There may be a small area of discoloration or a small knot in the area of the puncture. Tenderness at the puncture site may continue for one to two days. You may take a nonaspirin pain reliever containing acetaminophen such as Tylenol??? in the recommended dose as needed for discomfort. Medications Take all your previously prescribed medications, including aspirin, as you normally do unless your physician tells you otherwise. If you have active bleeding or swelling of the puncture site: Call 911 or your designated emergency number. Lie down and apply firm pressure with 2 or 3 fingers over the puncture site until help arrives. Do not drive yourself to the hospital. AttachmentsThe following attachments cannot be sent through Care Everywhere. Discharge Instructions for a Diagnostic Angiogram (Indonesian)Acetaminophen (By mouth) (Indonesian)Ibuprofen (By mouth) (Indonesian)Naloxone (Into the nose) (Indonesian) Oxycodone, Rapid Release (By mouth) (Indonesian)documented in this encounter Medications at Time of Discharge Medication Sig Dispensed Refills Start Date End Date acetaminophen (TYLENOL) Take 2 tablets (1,000 0 0 08/28/2021 500 mg tablet mg total) by mouth every 6 (six) hours as needed for pain. docusate sodium (COLACE) Take 100 mg by mouth 0 100 mg capsule 2 (two) times a day. ferrous sulfate 325 mg Take 325 mg by mouth 0 (65 mg iron) tablet 2 (two) times a day. fluticasone propionate INSTILL 2 SPRAYS INTO 0 (FLONASE) 50 EACH NOSTRIL EVERY mcg/actuation nasal DAY spray Junel .07/14, , 1.5-30 Take 1 tablet by 0 08/28 mg-mcg tablet mouth daily. clotrimazole (LOTRIMIN) APPLY ONE APPLICATION 0 0 08/12/2021 1 % cream TOPICALLY TWO TIMES A DAY hydrOXYzine (VISTARIL) Take 25-50 mg by 0 25 mg capsule mouth every 6 (six) hours as needed for anxiety. ibuprofen (ADVIL,MOTRIN) Take 3 capsules (600 0 0 08/28/2021 200 mg capsule mg total) by mouth every 6 (six) hours as needed for pain. naloxone (NARCAN) 4 Administer 1 spray (4 2 each 0 08/28 mg/actuation nasal spray mg total) into one nostril as needed for reversal. Use 1 spray in 1 nostril. Repeat with second device in other nostril after 2-3 minutes if no or minimal response. ondansetron (ZOFRAN) 4 TAKE ONE TABLET BY 0 08/19 mg tablet MOUTH EVERY 4 TO 6 HOURS NEEDED VIT Take by mouth daily. 0 [id number] ORAL oxyCODONE (ROXICODONE) 5 Take 1-2 tablets 8 tablet 0 08/2808/31/2021 mg immediate release (5-10 mg total) by tabletIndications: Acute mouth every 4 (four) Pain hours as needed for moderate pain or score 4-6 of 10 or severe pain or score 7-10 of 10 for up to 3 days Indication: Acute Pain. documented as of this encounter Progress Notes Henri Mckeon M.D. - 08/28/2021 8:17 AM CDT SUBJECTIVE No acute events overnight. Mrs. Castelan is 1 day s/p bilateral uterine artery gelfoam embolization for continued hemorrhage. She was spotting immediately prior to the procedure. Following theprocedure, the spotting resolved. Cramping postprocedure pelvic pain has also improved and she has not needed FACILITIES MANAGEMENT EXECUTIVE in several hours. She had 1 episode of pain at the access site, but this too has resolved. Tolerating ambulation to the bathroom. She looks forward to discharge. I have reviewed the current medication list. OBJECTIVE Current Weight: 109 kg VITAL SIGNS Height: 172.7 cm, Weight: 109 kg, BMI (Calculated): 36.4 kg/m??, Blood Pressure: 114/71, Heart Rate:90, Pulse Rate: 82, Resp Rate: 16, Temperature: 36.5 ??C, SpO2: 98 % Intake/Output Last 24 Hours: Intake/Output Summary (Last 24 hours) at 08/28/2021 08 Last data filed at 08/28/2021 0800 Gross per 24 hour Intake 1000 ml Output 1120 ml Net -120 ml PHYSICAL EXAM General Appearance: healthy, no distress. Extremities: Warm and well perfused. 2+ right common femoral and bilateral DP and PT pulses. Right groin dressing is clean and dry. ASSESSMENT / PLAN #1 Hemorrhage Delayed (HCC) Expected postprocedure course following bilateral uterine artery embolization. Pain controlled. Bleeding stopped. - Follow up with local conference service coordinator - No formal follow up necessary with VIR though I encouraged her to contact me if she has questions/concerns. - Discharge per Medicine team. I appreciate their help in caring for Mrs. Castelan. Anastacia Grande APRN, C.N.P. - 08/27/2021 3:54 PM CDT SUBJECTIVE Reason for Transfer Post procedure cares and monitoring following pelvic angiogram and bilateral uterine artery embolization Condition at Transfer stable OBJECTIVE VITAL SIGNS Temperature: [36.7 ??C] 36.7 ??C Blood Pressure: (132)/(75) 132/75 SpO2: [98 %] 98 % Pulse Rate: [80] 80 Constitutional General: She is not in acute distress. Comments: drowsy Cardiovascular Pulses: Dorsalis pedis pulses are 2+ on the right side and 2+ on the left side. Comments: Right femoral artery access site with occlusive dressing, dry and intact. No hematoma noted. Pulmonary Effort: Pulmonary effort is normal. Skin General: Skin is warm and dry. ASSESSMENT / PLAN SUMMARY OF CARE Ms. Castelan is a 31 year old with ongoing post bleeding Following C- section 06/29/2021. There have been 3 episodes of severe bleeding requiring visits to her local emergency department. She underwent pelvic angiogram with bilateral uterine artery embolization with Dr. Mckeon today. Post procedure she is drowsy following anesthesia. Will I/O cath for bladder discomfort and inability to void while on bedrest. Complains of 3-4/10 abdominal cramping. Will give IV tylenol and IV toradol now. May need IV dilaudid or FACILITIES MANAGEMENT EXECUTIVE overnight if pain worsens. - right femoral artery access with angio seal closure, 2 hours bed rest - see AVS for further site care and restrictions - pain management with scheduled tylenol (ordered), scheduled Toradol (ordered), and prn oxycodone (ordered); consider use of FACILITIES MANAGEMENT EXECUTIVE for pain control as needed - admit to Medicine 11 service overnight for post procedure cares and pain management - per anesthesia, no need to discard breast milk with anesthesia medications - Recommend Gynecology consultation for ongoing evaluation of bleeding - IR will follow For any questions or concerns regarding this patient please page Vascular Interventional Radiology nurse practitioner at [phone] Wednesday through Wednesday 7 a.m. to 5 p.m. or Vascular Interventional Radiology on-call resident at [phone] after 5 p.m. and on weekends. Addendum 16:45 Patient has worsening abdominal cramping after waking from anesthesia. Dilaudid FACILITIES MANAGEMENT EXECUTIVE initiated. Medicine 11 updated. documented in this encounter H&P Notes Courtney Jones, PPriyaAMyrtle. - 08/27/2021 4:36 PM CDT RST Medicine 11 ([facility]) Admission Note SUBJECTIVE CHIEF COMPLAINT bleeding HISTORY OF PRESENT ILLNESS Mrs. Destini Castelan is a 31-year-old female admitted for observation following pelvic angiogram with bilateral uterine artery embolization on 08/27/2021 in the setting of ongoing hemorrhage following a 06/29/2021. Procedure was initiated under MAC then converted intraprocedure to general anesthesia. Periprocedural period was uncomplicated. Access was obtained through right common femoral artery. She was given ceftriaxone prophylactically. Pain control was initiated in the PACU with scheduled Tylenol, Toradol, and p.r.n. oxycodone. She reportedly had bladder discomfort and was unable to void with a bedpan for which straight catheterization was ordered to drain 700 cc post- operatively. Upon awakening further, abdominal cramping was becoming more notable so she was initiated on a Dilaudid FACILITIES MANAGEMENT EXECUTIVE. Upon admission to the floor, she remained afebrile and hemodynamically stable. She denied shortness of breath, chest pain, or nausea. She did note some lightheadedness. She reported abdominal cramping was currently much improved after starting Dilaudid FACILITIES MANAGEMENT EXECUTIVE. She brought her own breast feeding pump and s upplies. She was accompanied by her . I have reviewed and updated the following: Past Medical History, Family History, Social History, andAllergies. Active Home Medications Medication Sig Taking docusate sodium (COLACE) 100 mg capsule Take 100 mg by mouth 2 (two) times a day. Yes ferrous sulfate 325 mg (65 mg iron) tablet Take 325 mg by mouth 2 (two) times a day. Yes fluticasone propionate (FLONASE) 50 mcg/actuation nasal spray INSTILL 2 SPRAYS INTO EACH NOSTRIL EVERY DAY Yes clotrimazole (LOTRIMIN) 1 % cream APPLY ONE APPLICATION TOPICALLY TWO TIMES A DAY , 1.5-30 mg-mcg tablet ondansetron (ZOFRAN) 4 mg tablet TAKE ONE TABLET BY MOUTH EVERY 4 TO 6 HOURS NEEDED VIT [id number] ORAL Take by mouth daily. REVIEW OF SYSTEMS Pertinent items are noted in HPI; all other review of systems was negative. OBJECTIVE VITAL SIGNS Temperature: [36.6 ??C-36.7 ??C] 36.6 ??C Heart Rate: [102] 102 Resp Rate: [16] 16 Blood Pressure: (132)/(75-97) 132/97 SpO2: [98 %-100 %] 100 % Weight: [107 kg] 107 kg Pulse Rate: [80-102] 102 PHYSICAL EXAM General: Alert, oriented, and in no acute distress. Resting comfortably in bed. Psychiatric: Calm, cooperative. Mood and affect congruent. Logical thought processes. Good eye contact. HEENT: Anicteric. Conjunctivae clear. EOMI. PERRL. Mucous membranes moist. Cardiovascular: Regular rate and rhythm. No murmurs, rubs, or gallops. No peripheral edema. Respiratory: Lungs clear to auscultation bilaterally. Nonlabored breathing on room air. Gastrointestinal: Soft, nondistended, nontender abdomen. Active bowel sounds in all 4 quadrants. Neuro: No focal deficits. Gross strength intact 5/5 in upper and lower extremities bilaterally. Distal sensation intact in all extremities. Skin: Warm, dry. Right groin vascular access site with dressing intact, no palpable hematoma. DIAGNOSTICS I have independently reviewed the labs and diagnostics periprocedurally. ASSESSMENT / PLAN Mrs. Destini Castelan is a 31-year-old female admitted for observation following pelvic angiogram with bilateral uterine artery embolization on 08/27/2021 in the setting of ongoing hemorrhage following a 06/29/2021. #1 Hemorrhage Delayed (HCC) #2 Anemia Posthemorrhagic Acute (Blood Loss Anemia) -Continue bed rest until 2 hours post-procedure. -VIR ordered scheduled Tylenol 1,000 mg q6h, IV Toradol 15 mg q6h, Dilaudid FACILITIES MANAGEMENT EXECUTIVE, and oxycodone 5-10 mg q4h prn overnight. -Continue bladder scan and straight cath as needed following urinary retention post-procedure while still on bedrest. -Follow up with Gynecology outpatient. Diet: Adult Diet Regular Tubes/lines: PIV VTE prophylaxis: none post-procedure Code status: Full Code Baseline Mobility: BMAT Level 4 (Able to stand and walk) Disposition: Home The above plan of care was discussed with Dr. De Luna, HIM wig sales consultant. Truong Jones PA-C [facility] Internal Medicine Pager: [phone] Counseling was provided [id number] at bedside regarding the plan of care as stated above. I personally spent over half of a total 70 minutes in counseling and coordination of care as documented above. documented in this encounter Procedure Notes Henri Mckeon M.D. - 08/27/2021 3:56 PM CDT PATIENT DISPOSITION Admit. POST-PROCEDURE DIAGNOSIS hemorrhage PROCEDURE PERFORMED AND DESCRIPTION Bilateral uterine artery embolization PROCEDURE DETAILS See Radiology Report SPECIMENS REMOVED None FINDINGS See report. PRIMARY PROCEDURALIST Henri Mckeon MD ASSISTANTS none COMPLICATIONS None. DRAINS None. IMPLANTS None. ANESTHESIA MAC. FLUIDS 0 ESTIMATED BLOOD LOSS <5ml CURRENT MEDICATIONS No Medication Changes FOLLOW-UP LETTER None. MAY RETURN TO WORK Not applicable PATIENT INSTRUCTIONS No return appointment documented in this encounter Nursing Notes Merna Dickinson R.N. - 08/27/2021 1:54 PM CDT Shift Goals: Clinical Goals for the Shift: Patient will have adequate pain relief during shift. Identify possible barriers to meeting goals/advancing plan of care: None. End of Shift Summary: Patient remained safe throughout shift. PRN oxycodone, FACILITIES MANAGEMENT EXECUTIVE pump dilaudid, scheduled tylenol, and scheduled Ketoralac given throughout night to manage pain. Vital signs stable. Problem: PAIN - ADULT Goal: PT VERBALIZES/DEMONSTRATES ADEQUATE COMFORT LEVEL OR BASELINE Outcome: Progressing Problem: SKIN/TISSUE INTEGRITY Goal: Skin/Tissue integrity maintained or improved Outcome: Progressing Problem: SAFETY ADULT Goal: Maintain a safe environment Outcome: Progressing Problem: DISCHARGE PLANNING Goal: Patient discharge needs identified Outcome: Progressing Problem: Compromised Skin Integrity Goal: Skin/Tissue integrity maintained or improved Outcome: Progressing Electronically signed by: Merna Dickinson R.N. 08/28/21 5:56 AM CDT Cristin Temple R.N. - 08/27/2021 1:54 PM CDT Problem: PAIN - ADULT Goal: PT VERBALIZES/DEMONSTRATES ADEQUATE COMFORT LEVEL OR BASELINE Outcome: Adequate for Discharge Problem: KNOWLEDGE DEFICIT Goal: Patient/family/caregiver demonstrates understanding of disease process, treatment plan, medications, and discharge instructions Outcome: Adequate for Discharge Problem: INFECTION - ADULT Goal: Absence of infection during hospitalization Outcome: Adequate for Discharge Problem: SKIN/TISSUE INTEGRITY Goal: Skin/Tissue integrity maintained or improved Outcome: Adequate for Discharge Goal: Oral and Nasal mucous membranes remain intact Outcome: Adequate for Discharge Problem: SAFETY ADULT Goal: Maintain a safe environment Outcome: Adequate for Discharge Problem: DISCHARGE PLANNING Goal: Patient discharge needs identified Outcome: Adequate for Discharge Problem: POTENTIAL OR ACTUAL PRESSURE INJURY-ADULT Goal: Manage sensory Perception deficits to maintain and/or improve skin integrity Outcome: Adequate for Discharge Goal: Maintain optimal skin moisture to ensure or improve skin integrity Outcome: Adequate for Discharge Goal: Achieve optimal activity and/or mobility to maintain or improve skin integrity Outcome: Adequate for Discharge Goal: Nutrient intake appropriate for improving, restoring or maintaining skin integrity Outcome: Adequate for Discharge Goal: Minimize friction and/or shear to maintain or improve skin integrity Outcome: Adequate for Discharge Problem: Compromised Skin Integrity Goal: Skin/Tissue integrity maintained or improved Outcome: Adequate for Discharge Goal: Oral and Nasal mucous membranes remain intact Outcome: Adequate for Discharge Goal: Incisions, wounds, or drain sites healing without S/S of infection Outcome: Adequate for Discharge Problem: Incontinence and/or Moisture Goal: Skin integrity is maintained or improved Outcome: Adequate for Discharge Problem: SAFETY ADULT - RISK FOR FALL AND OR FALL INJURY Goal: Patient remains free from fall/fall injury Outcome: Adequate for Discharge Shift Goals: Clinical Goals for the Shift: pt will discharge safely Identify possible barriers to meeting goals/advancing plan of care: none End of Shift Summary: Goal met. Pt discharged safely from the hospital. Educated to continue to monitor vaginal bleeding output. Nursing double checked with the Med 11 team and was Okd that this may occur after surgery and to follow up with her primary OB doctor. Patient was given discharge instructions. Medication regimen reviewed. Advised on follow-up appointments. Patient was stable upon discharge. All needs met prior to leaving the unit. Cristin Temple R.N. documented in this encounter Miscellaneous Notes Hospital Course - Courtney Jones P.A.-C. - 08/27/2021 4:19 PM CDT Mrs. Destini Castelan is a 31-year-old female admitted for observation following pelvic angiogram with bilateral uterine artery embolization on 08/27/2021 in the setting of ongoing hemorrhage following a 06/29/2021. Procedure was initiated under MAC then converted intraprocedure to general anesthesia. Periprocedural period was uncomplicated. She was given ceftriaxone prophylactically. Post-operative pain was managed with scheduled Tylenol, IV Toradol, Dilaudid FACILITIES MANAGEMENT EXECUTIVE, and prn oxycodone. Pain control improved and shewas weaned off IV narcotics the following morning. She remained afebrile, hemodynamically stable, ambulating independently, and tolerating oral diet prior to discharge home 08/28/2021. documented in this encounter Plan of Treatment Not on filedocumented as of this encounter Procedures Procedure Name Priority Date/Time Associated Comments Diagnosis ADULT OXYGEN Routine 08/27/2021 4:41 THERAPY PM CDT ADULT OXYGEN Routine 08/27/2021 4:41 THERAPY PM CDT ADULT OXYGEN Routine 08/27/2021 3:57 THERAPY PM CDT IR UTERINE ARTERY RAD - Routine 08/27/2021 3:55 Abnormal Uterine Re sults for this EMBOLIZATION (most inpatients PM CDT And Vaginal procedure a re in and all Bleeding the results outpatients) Unspecified section. Other Injury Uterus Initial documented in this encounter Results IR Uterine Artery Embolization [...] image was created and stored. A 5 Czech Joseph 1 sheath was placed. An Omni Flush catheter was used to go up and over the aortic bifurcation. A 4 Czech glide catheter was advanced i nto the [...] image was created and stored. A 5 Czech Joseph 1 sheath was placed. An Omni Flush catheter was used to go up and over the aortic bifurcation. A 4 Czech glide catheter was advanced i nto the [...] Brooklyn Martinez P.A.-C., M.S. IMG IR PROCEDURES documented in this encounter Visit Diagnoses Diagnosis Hemorrhage Delayed (HCC) - Pr imary Abnormal Uterine And Vaginal Bleeding Un specified Other Injury Uterus Initial Anemia Posthemorrhagic Acute (Blood Loss Anemia) documented in this encounter Admitting Diagnoses Diagnosis Hemorrhage Delayed (HCC) documented in this encounter Administered Medications Inactive Administered Medications - up to 3 most recent administrations Medication Order MAR Action Action Date Dose Rate Site acetaminophen injection 1,000 New Bag 08/27/2021 4:33 PM 1,000 mg 400 mL/hr mg CDT 1,000 mg, intravenous, at 400 mL/hr, Administer over 15 Minutes, Once, On Wed08/27/21 at 1615, For 1 dose, Restriction Criteria (Pharmacy will review and approve if criteria met): Unable to take or tolerate medications administered via the enteral route or orally (not just NPO) acetaminophen tablet 1,000 mg (TYLENOL) Given 08/28/2021 8:05 AM CDT 1,000 mg 1,000 mg, oral, 4 times daily, First dose (after last modification) on Wed08/27/21 at 2300, (not to exceed 4 grams in 24 hours) Given 08/27/2021 10:04 PM CDT 1,000 mg cefTRIAXone injection 2 g (ROCEPHIN) Given 08/27/2021 12:56 PM CDT 2 g 2 g, intravenous, Once, On Wed08/27/21 at 1300, For 1 dose, If needed, reconstitute vial per package insert instructions. See IVAG for administration guidelines. , Drug Monitoring Program: Pharmacist to adjust medication dosing based on indication and drug clearance factors., Indications: Prophylaxis, surgical HYDROmorphone (PF) injection 0.2 mg Given 08/27/2021 4:51 PM CDT 0.2 mg (DILAUDID) 0.2 mg, intravenous, Once, On Wed08/27/21 at 1700, For 1 dose iohexoL 300 mg iodine/mL solution (OMNIP AQUE) Given 08/27/2021 3:52 PM CDT 100 mL Code/trauma/sedation medication, Starting on Wed08/27/21 at 1552 iohexoL 350 mg iodine/mL solution (OMNIP AQUE) Given 08/27/2021 3:52 PM CDT 150 mL Code/trauma/sedation medication, Starting on Wed08/27/21 at 1552 ketorolac injection 15 mg (TORADOL) Given 08/27/2021 4:37 PM CDT 15 mg 15 mg, intravenous, Every 6 hours, First dose on Wed08/27/21 at 1615, For 5 days, Adult IV push rate: Over 15 seconds. Peds IV push rate: Over 1 minute. 60 mg dose only for IM, not recommended for IV. ketorolac injection 15 mg (TORADOL) Given 08/28/2021 4:47 AM CDT 15 mg 15 mg, intravenous, Every 6 hours, First dose on Wed08/27/21 at 2300, For 17 doses, Adult IV push rate: Over 15 seconds. Peds IV push rate: Over 1 minute. 60 mg dose only for IM, not recommended for IV. Given 08/27/2021 10:04 PM CDT 15 mg lidocaine-sodium bicarbonate (buffered) Given 08/27/2021 3:52 PM CDT 5 mL 0.9%-8.4% injection infiltration, Code/trauma/sedation medication, Starting on Wed08/27/21 at 1552 metroNIDAZOLE in NaCl (iso-osm) New Bag 08/27/2021 1:29 PM CDT 500 mg 200 mL/hr IVPB 500 mg (FLAGYL) 500 mg, intravenous, at 200 mL/hr, Administer over 30 Minutes, Once, On Wed08/27/21 at 1330, For 1 dose, Preprocedure (RAD), Indications: Prophylaxis, surgical ondansetron (PF) injection 4 mg (ZOFRAN) Given 08/27/2021 5:11 PM CDT 4 mg 4 mg, intravenous, Every 6 hours PRN, nausea, vomiting, Starting on Wed08/27/21 at 1557, For 48 hours, Reassess for nausea or vomiting after at least 10 minutes. If nausea or vomiting persists administer next ordered antiemetic medications (order for antiemetic medication administration ondansetron then haloperidol then promethazine). ondansetron ODT disintegrating tablet 4 mg Given 08/28/2021 9:07 AM CDT 4 mg (ZOFRAN-ODT) 4 mg, oral, Every 6 hours PRN, nausea, vomiting, Starting on Stephania 08/28/21 at 0729, When splitting ODT at bedside, handle with gloves and a pill splitter to prevent moisture contact. oxyCODONE IR tablet 10 mg (ROXICODONE) 10 mg, oral, Every 4 hours PRN, severe p ain or score 7-10 of 10, Starting on Wed08/27/21 at 1557 oxyCODONE IR tablet 5 mg (ROXICODONE) Given 08/28/2021 10:26 AM CDT 5 mg 5 mg, oral, Every 4 hours PRN, moderate pain or score 4-6 of 10, Starting on Wed08/27/21 at 1557 Given 08/27/2021 7:49 PM CDT 5 mg documented in this encounter Active and Recently Administered Medications Times are shown in CDT. Scheduled Medication Order 08/26/2021 08/27/2021 08/28/2021 acetaminophen injection 1,000 mg (COMPLETED) 1633 (New Bag - Provider: Julian Mcelroy RCarlos Eduardo) 1,000 mg, intravenous, at 400 mL/hr, Adm inister over 15 Minutes, Once, On Wed08/27/21 at 1615, For 1 dose, Restriction Criteria (Pharmacy will review and approve if criteria met): Unable to take or tole rate medications administered via the enteral route or orally (n ot just NPO) acetaminophen tablet 1,000 mg (TYLENOL) 4 (Given - Provider: Merna Dickinson RCarlos Eduardo) 0805 (Given - Provider: Cristin Temple RCarlos Eduardo) 1,000 mg, oral, 4 times daily, First dos e (after last modification) on Wed08/27/21 at 2300, (not to exceed 4 grams in 24 hours) cefTRIAXone injection 2 g (ROCEPHIN) (COMPLETED) 1256 (Given - Provider: Blake Trimble RCarlos Eduardo) 2 g, intravenous, Once, On Wed08/27/21 a t 1300, For 1 dose, If needed, reconstitute vial per package insert instructions. See IVAG for administration guidelines. , Drug Monitoring Program: Pharmacist to adjust medication dosing based on indic ation and drug clearance factors., Indications: Prophylaxis, surgical HYDROmorphone (PF) injection 0.2 mg (DILAUDID) (COMPLETED) 1651 (Given - Provider: Maryam RondonNPriya) 0.2 mg, intravenous, Once, On Wed08/27/21 at 1700, For 1 dose ketorolac injection 15 mg (TORADOL) (CANCELED) 1637 (Given - Provider: Julian Mcelroy RPriyaN.) 15 mg, intravenous, Every 6 hours, First dose on Wed08/27/21 at 1615, For 5 days, Adult IV push rate: Over 15 seconds. Peds IV push rate: Over 1 minute. 60 mg dose only for IM, not recommended for IV. ketorolac injection 15 mg (TORADOL) 2204 (Given - Provider: Merna Dickinson R.N.) 0447 (Given - Provider: Merna Dickinson R.N.)1100 (Due) 15 mg, intravenous, Every 6 hours, First dose on Wed08/27/21 at 2300, For 17 doses, Adult IV push rate: Over 15 seconds. Peds IV push rate: Over 1 minute. 60 mg dose only for IM, not recommended for IV. metroNIDAZOLE in NaCl (iso-osm) IVPB 500 mg (FLAGYL) (COMPLE ARIC) 1329 (New Bag - Provider: Usha Maldonado R.N.) 500 mg, intravenous, at 200 mL/hr, Admin ister over 30 Minutes, Once, On Wed08/27/21 at 1330, For 1 dose, Preprocedure (RAD), Indications: Prophylaxis, surgical PRN Medication Order 08/26/2021 08/27/2021 08/28/2021 iohexoL 300 mg iodine/mL solution (OMNIPAQUE) (COMPLETED) 1552 (Given - Provider: Henri Mckeon M.D.) Code/trauma/sedation medication, Starting on Wed08/27/21 at 1552 iohexoL 350 mg iodine/mL solution (OMNIPAQUE) (COMPLETED) 1552 (Given - Provider: Henri Mckeon M.D.) Code/trauma/sedation medication, Starting on Wed08/27/21 at 1552 lidocaine-sodium bicarbonate (buffered) 0.9%-8.4% injection (COMPLETED) 1552 (Given - Provider: Henri Mckeon M.D.) infiltration, Code/trauma/sedation medication, Starting on W ed 08/27/21 at 1552 naloxone injection 0.1 mg (NARCAN) 0.1 mg, intravenous, Every 5 min PRN, re spiratory depression, Starting on Wed08/27/21 at 1641, For 3 doses, For RASS Score -4 or less, respiratory rate of less than 8 breaths/min. Notify provider/servic e and rapid response team (if available at institution). ondansetron (PF) injection 4 mg (ZOFRAN) (CANCELED) 1710 (Given - Provider: Julian Mcelroy R.N.) 4 mg, intravenous, Every 6 hours PRN, na usea, vomiting, Starting on Wed08/27/21 at 1557, For 48 hours, Reassess for nausea or vomiting after at least 10 minutes. If nausea or vomiting persists administe r next ordered antiemetic medications (o rder for antiemetic medication administration ondansetron then haloperidol then promethazine). ondansetron ODT disintegrating tablet 4 mg (ZOFRAN-ODT) 906 (Given - Provider: Cristin Temple R.N.) 4 mg, oral, Every 6 hours PRN, nausea, v omiting, Starting on Wed08/28/21 at 0729, When splitting ODT at bedside, handle with gloves and a pill splitter to prevent moisture contact. oxyCODONE IR tablet 10 mg (ROXICODONE)(Linked Group 1) 1948 (See Alternative - Provider: Merna Dickinson R.N.) 1026 (See Alternative - Provider: Cristin Temple R.N.) 10 mg, oral, Every 4 hours PRN, severe p ain or score 7-10 of 10, Starting on Wed08/27/21 at 1557 oxyCODONE IR tablet 5 mg (ROXICODONE)(Linked Group 1) 1948 (Given - Provider: Merna Dickinson R.N.) 1026 (Given - Provider: Cristin Temple R.N.) 5 mg, oral, Every 4 hours PRN, moderate pain or score 4-6 of 10, Starting on Wed08/27/21 at 1557 Linked Groups Order Group 1: oxyCODONE IR tablet 5 mg (ROXICODONE)Jump to med 5 mg, oral, Every 4 hours PRN, moderate pain or score 4-6 of 10, Starting on Wed08/27/21 at 1557 Or oxyCODONE IR tablet 10 mg (ROXICODONE)Jump to med 10 mg, oral, Every 4 hours PRN, severe p ain or score 7-10 of 10, Starting on Wed08/27/21 at 1557 documented in this encounter
--- OUTSIDE RECORDS SUMMARY | 2021-11-01 11:28 | XMS_ITS | Clinical Summary ---
:1990 Author Organization [facility] [place] [address] Care Team Providers Name Role Phone Ana Mehta GENERAL OFFICE CLERK Primary Care Provider Allergies Not on File Medications Not on file Active Problems Not on file Social History Tobacco Use Types Packs/Day Years Used Date Never Assessed Sex Assigned at Date Recorded Not on file Plan of Treatment Health Maintenance Due Date Last Done Comments COVID-19 vaccine series (#1) 02/03/1990 Tdap 2000 Depression screening for age 12+ 2001 BMI (ht and wt on same day) for age 18+ 08/05/2007 Hepatitis C screening for age 18-79 08/05/2007 Tetanus booster 2009 Influenza for age 9-49 10/16/2021 Pap test for age 21-65 04/27/2023 04/26/2020, 04/26/2020 Results Not on filefrom Last 3 Months Insurance Payer Benefit Plan / Subscriber ID Effective Dates Phone Addre ss Type Group PREFERRED ONE PREFERRED ONE [id number] 2018-Present [address] [place] [address] Care Teams Licensed Master Social Worker Relationship Specialty Start Date End Date Aan Mehta, GENERAL OFFICE CLERK PCP - General Nurse Practitioner 07/20/18 [id number] [address] [place] Simpson [phone] (work)
--- OUTSIDE RECORDS SUMMARY | 2021-11-01 11:28 | XMS_ITS | Encounter Summary ---
:[address] [facility] Address [address] [place] [address] Care Team Providers Name Role Phone Unavailable Primary Care Provider Unavailable Reason for Visit Auth/Cert Specialty Diagnoses / Procedures Referred By Contact Refer red To Contact Diagnoses Abnormal Uterine And Vaginal Bleeding Unspecified Other Injury Uterus Initial Hemorrhage Delayed (HCC) Procedures IR PELVIC ANGIOGRAM Referral ID Status Reason Start Date Expiration Date Visits Requ ested Visits Authorized [id number] 1 1 Encounter Details Date Type Department Care Team Description 08/27/2021 Anesthesia Event Department of Radiology Rod Burton APRN, NETWORKING TECHNOLOGY INSTRUCTOR, DNAP [address] [place] [id number] in [facility] Zoltan Cruz M.D. [address] [place] [address] [address] [place] [address] Anesthesia Record Procedure Summary Procedure Name Responsible Anesthesia Start Anesthesia Stop Anesthesiologist Time Time IR UTERINE ARTERY Rod Burton APRN, 08/27/21 1358 1612 EMBOLIZATION NETWORKING TECHNOLOGY INSTRUCTOR, DNAP Events Date Time Event Comment 08/27/2021 1310 1358 An Start Machine/Equipmen t Checked Infection Precautions Foll owed Procedure/Site Verified NPO Sta tus Verified Supine Standard ASA Mon itors Applied 1405 Turnover to Proceduralist 1410 Anesthesia Time Out 1410 Proc Start 1516 An Induction 1518 An Intubation 1552 Proc Fin 1554 Turnover to ANE Staff 1556 Airway Removal Criteria Met 1556 Extubation/Airway Removed 1601 an stop data 1612 An End I completed my h andoff to the receiving staff during whi ch we 1. Identified the patient 2. Ident ified the responsible provider 3. Revi ewed the pertinent medical history 4. Discussed the surgical course 5. Review ed intra-op anesthesia management and i ssues during anesthesia 6. Set expectati ons for post-procedure period 7. Allowe d opportunity for questions and ac knowledgement of understanding. Name Total fentaNYL PF injection 50 mcg/mL 100 mcg lidocaine 2% (mg) injection 80 mg propofol 10 mg/mL infusion 1,502.31 mg propofol 10 mg/mL injection 320 mg ondansetron PF 4 mg/2 mL injection 4 mg propofol bolus from bag 50 mg glycopyrrolate 0.2 mg/mL injection 0.2 mg Lactated Ringers Free Drip 500 mL Agents No agents on file. Blood No blood administrations on file. Lines, Drains, and Airways Type Details Placement Removal Peripheral IV Placement Date: 08/27/21 1236 by 08/28/21 1100 b y 08/27/21; Placement Tsering Nielsen Ha nnah L, Time: 1236; Catheter R.N. Size: 20 G; Orientation: Anterior, Lower, Right; Location: Forearm; Site Prep: Chlorhexidine (Preferred); Technique: Anatomical landmarks; Insertion Attempts: 1; Removal Date: 08/28/21; Removal Time: 1100; Removal Reason: Patient discharged Percutaneous Access 08/27/21; 1420; 08/27/21 1420 by 08/27/21 15 45 by Site Temporary (non-tunneled, Cait Hameed T, Cait Brown non-implanted); R.T.(R) T, R.T.(R) Arterial; Yes; Yes; Yes; Chlorhexidine (Preferred); Henri Mckeon; Right Femoral; 5 Fr.; Micropuncture; Angioseal; 08/27/21; 1545 Supraglottic Airway Placement Date: 08/27/21 1518 by 08/27/21 15 56 by 08/27/21; Placement Rod Burton Bitew, Mah eder A, Time: 1518 (created via PILOT FUEL ENGINEER, NETWORKING TECHNOLOGY INSTRUCTOR, DNAP PILOT FUEL ENGINEER, C RNA, DNAP procedure documentation); Mask Ventilation: Not attempted; Removal Date: 08/27/21; Removal Time: 1556 documented in this encounter Social History Tobacco Use Types Packs/Day Years Used Date Smoking Tobacco: Never Smokeless Tobacco: Never Alcohol Use Standard Drinks/Week Comments Not Currently 0 (1 standard drink = 0.6 oz pure alcoho l) Sex Assigned at Date Recorded Not on file documented as of this encounter OR Notes Anesthesia Postprocedure Evaluation - Rod Burton APRN, CRNA, DNAP - 08/27/2021 4:24 PM CDT Patient: Destini Castelan Procedure Summary Date: 08/27/21 Room / Location: Department of Radiology in [place], [place] Anesthesia Start: 1358 Anesthesia Stop: 1612 Procedure: IR UTERINE ARTERY EMBOLIZATION Diagnosis: Abnormal Uterine And Vaginal Bleeding Unspecified Other Injury Uterus Initial Abnormal Uterine And Vaginal Bleeding Unspecified Other Injury Uterus Initial (Uterine fistula? continue to bleed 7 weeks ) Scheduled Providers: Henri Mckeon M.D.; Ezio Chaudhary M.D. Responsible Provider: Rod Burton APRN, CRNA, DNAP Anesthesia Type: general ASA Status: 1 Anesthesia Type: general Last vitals Vitals Value Taken Time BP 132/97 08/27/21 1616 Temp 36.6 ??C 08/27/21 1616 Pulse 96 08/27/21 1623 Resp 11 08/27/21 1623 SpO2 100 % 08/27/21 1623 Vitals shown include unvalidated device data. Please reference Vitals flowsheet for most recent vital signs. Anesthesia Post Evaluation Patient Disposition: general care unit Cardiovascular status: hemodynamics (HR & BP) acceptable Respiratory status: patent airway with spontaneous effort Temperature: normothermic Oxygen requirements: room air Level of consciousness: awake Pain score: pain requiring further management Post Op nausea/vomiting: none Hydration status: euvolemic Anesthesia Procedure Notes - Rod Burton APRN, CRNA, DNAP - 08/27/2021 3:21 PM CDTAssociated Order(s): Airway Airway Date/Time: 08/27/2021 3:18 PM Performed by: Rod Burton APRN, CRNA, DNAP Authorized by: Zoltan Felder M.D., M.S. Patient location during procedure: OR / Procedure Area PROCEDURE DETAILS: Mask difficulty assessment: not attempted Final airway type: supraglottic airway Laryngeal Manipulation: no Supraglottic device: LMA unique Supraglottic device size: 5 Adult device size: 5 Number of attempt to successful placement: 1 Airway confirmation: bilateral breath sounds, positive ETCO2 and bilateral chest rise Other previous techniques attempted: none Additional Comments Intraprocedure conversion from MAC to GA (patient unable to hold still enough for proceduralist). Uncomplicated LMA placement. PRE PROCEDURE DETAILS: Pre evaluation for airway management: procedure Urgency: elective Preop assessment of probable difficulty: questionable / suspicious difficult airway Preoxygenation: bag valve mask SEDATION / ANESTHESIA Anesthesia method: anesthesia POST PROCEDURE DETAILS: Procedure outcome: successful Airway event: no complications Anesthesia Preprocedure Evaluation - Zoltan Felder M.D., M.S. - 08/27/2021 11:17 AM CDT Preprocedure Anesthesia & H&P Assessment Procedure Summary Date/Time: 08/27/21 1300 Scheduled providers: Henri Mckeon M.D.; Ezio Chaudhary M.D. Procedure: IR PELVIC ANGIOGRAM Diagnosis: Abnormal Uterine And Vaginal Bleeding Unspecified [N93.9] Other Injury Uterus Initial [S37.69XA] Indications: Uterine fistula? continue to bleed 7 weeks Location: Department of Radiology in [place], [place] Pertinent components of the patient's history including current problem list, medical history, surgical history, family history, social history, medications and allergies were reviewed. Present illnessand pre-op diagnosis were confirmed. The planned surgery / procedure was verified with the patient /legal guardian. The patient's general health condition remains unchanged RELEVANT COMORBID CONDITIONS RENAL/REPRO (+) Hemorrhage Delayed (HCC) HEME (+) Anemia Posthemorrhagic Acute (Blood Loss Anemia) Nervous (+) Syncope OBJECTIVE PHYSICAL EXAMINATION Airway (HEENT) Mallampati: III TM Distance: >3 FB Neck ROM: Full Mouth Opening: >3 cm Upper Lip Bite Test Class: I Cardiovascular Rhythm: Regular Rate: Normal Cardiovascular Assessment: cardiovascular normal Functional Capacity: >4 METS Pulmonary Pulmonary Assessment: Clear and non labored General / Constitutional Constitutional Assessment: Overweight General State of Health:: calm Neurological Neurologic Assessment:??alert Dental Dental Assessment: dentition intact ASSESSMENT / PLAN ANESTHESIA PLAN ASA: 1 Anesthesia Plan: MAC 31 y/o F previously healthy, status post C section on 06/29/2021, complicated by delayed bleeding including 3 episodes involving syncope and ER visits on 07/16, 08/05, and 08/18. Most recent hemoglobin 10.2 (down from 14.5). Currently . Last pumped 1.5 hours ago. Discussed with patient regarding anesthesia guidelines with respect to . Explained that she may resume postprocedurally as soon as she is alert enough to do so, and does not need to discard any breast milk. Plan for MAC, PIVx1, standard ASA monitors, propofol + PRN fentanyl, PRN ondansetron. Planned hospital admission postprocedurally. Patient seen and allergies reviewed, anesthesia plan and risks discussed directly with patient /legal guardian or through an prosecuting attorney. Risks/Benefits/Alternatives of Blood transfusion discussed with patient / legal guardian, including an opportunity to ask questions and/or decline some or all transfusion therapies. The patient / legalguardian consented to the use of all blood products, as deemed medically necessary Approval to Proceed: approved for anesthesia documented in this encounter Plan of Treatment Not on filedocumented as of this encounter Procedures Procedure Name Priority Date/Time Associated Diagnosis Comme nts LDA ANE Routine 08/27/2021 3:18 PM Results f or this NON-SURGICAL AIRWAY CDT procedur e are in the results section. documented in this encounter Results LDA ANE NON-SURGICAL AIRWAY (08/27/2021 3:18 PM CDT) Narrative Rod Burton APRN, CRNA, DNAP - 3:18 PM CDT Rod Burton APRN, CRNA, DNAP ? 08/27/2021 ??3:40 PM Airway Date/Time: [...] no complications Zoltan Felder M.D. ANESTHESIA ORDERABLES documented in this encounter Visit Diagnoses Not on filedocumented in this encounter Administered Medications Inactive Administered Medications - up to 3 most recent administrations Medication Order MAR Action Action Date Dose Rate Site fentaNYL injection (SUBLIMAZE) Given 08/27/2021 3:21 PM CDT 25 mcg intravenous, As needed, Starting on Wed08/27/21 at 1403, Anesthesia Intra-op Given 08/27/2021 2:52 PM CDT 25 mcg Given 08/27/2021 2:03 PM CDT 50 mcg glycopyrrolate injection (ROBINUL) Given 08/27/2021 3:00 PM CDT 0.2 mg intravenous, As needed, Starting on Wed08/27/21 at 1500, Anesthesia Intra-op lactated ringers New Bag 08/27/2021 2:00 PM CDT intravenous, Continuous Infusion: Per Instructions PRN, Starting on Wed08/27/21 at 1400, Anesthesia Intra-op lidocaine (PF) (cardiac) injection Given 08/27/2021 2:03 PM CDT 80 mg intravenous, As needed, Starting on Wed08/27/21 at 1403, Anesthesia Intra-op ondansetron (PF) injection (ZOFRAN) Given 08/27/2021 2:10 PM CDT 4 mg intravenous, As needed, Starting on Wed08/27/21 at 1410, Anesthesia Intra-op propofol 10 mg/mL infusion Rate/Dose 08/27/2021 3:41 150 mcg/kg/min 96.75 (DIPRIVAN) Change PM CDT mL/hr intravenous, Continuous Infusion: Per Instructions PRN, Starting on Wed08/27/21 at 1403, Anesthesia Intra-op Rate/Dose Change 08/27/2021 3:16 PM CDT 200 mcg/kg/min 129 mL/hr Rate/Dose Change 08/27/2021 3:09 PM CDT 175 mcg/kg/min 112.875 mL/h r propofol bolus from bag (DIPRIVAN) Given 08/27/2021 3:16 PM CDT 50 mg intravenous, As needed, Starting on Wed08/27/21 at 1516, Anesthesia Intra-op propofoL injection (DIPRIVAN) Given 08/27/2021 3:16 PM CDT 100 mg intravenous, As needed, Starting on Wed08/27/21 at 1404, Anesthesia Intra-op Given 08/27/2021 3:07 PM CDT 100 mg Given 08/27/2021 2:54 PM CDT 50 mg documented in this encounter
--- OUTSIDE RECORDS SUMMARY | 2021-11-01 11:28 | XMS_ITS | Encounter Summary ---
:[address] [facility] Address [address] [place] [address] Care Team Providers Name Role Phone Unavailable Primary Care Provider Unavailable Encounter Details Date Type Department Care Team Description 08/22/2021 Orders Only Department of Oin Leyva Encounter For Preprocedural Laboratory Examination (COVID-19) (Primary Dx); Radiology, Gonda D, R.N. Negative COVID-19 Test (Contact With And (Suspected) Exposure To COVID-19); Building, in [address] [place] [address] Abnormal Uterine And Vaginal Bleeding Un specified [place], [place] [address] [place] [phone] [place], [place] [phone] (Work) [phone] Social History Tobacco Use Types Packs/Day Years Used Date Smoking Tobacco: Never Assessed Sex Assigned at Date Recorded Not on file documented as of this encounter Plan of Treatment Not on filedocumented as of this encounter Results (ABNORMAL) Basic Metabolic Panel (08/26/2021 8:29 AM [...] 08/26/2021 DTL Black/ mL/min/BSA 9:30 AM CDT Djib[place]ian Comment: ----ADDITIONAL INFORMATION---- Estimated GFR calculated using [...] 9:08 Venous) CDT AM CDT Sadia Kelley APRN C.N.P., M.S.N. LAB BLOOD ADD-ON Performing Organization Address City/State/ZIP Code Phon e Number [facility] - 200 [place], [place] [address] [facility] [place] [address] [facility] 200 [facility] (ABNORMAL) CBC without Differential (08/26/2021 8:29 AM CDT) [facility] gist Method Time Signature Hemoglobin 10.2 [...] AM 08/27/19 8:50 Venous) CDT AM CDT Jordon Kidd APRNN.P., M.S.N. LAB BLOOD ADD-ON Performing Organization Address City/State/ZIP Code Phon e Number [facility] - 200 [place], [place] [address] [facility] [place] [place] [address] [facility] 200 [facility] SARS CoV-2 RNA, PCR, Varies Asymptomatic (08/26/2021 7:39 AM CDT) [facility] Method Time Signature SARS CoV-2 Swab, 08/26/2021 [...] Drug Administration an d is used per director utilization management's instructions. Performance characteristics were verified by [facility] in a manner consistent with CLIA requirements. Visit the CDC website: https://www.cdc.g ov/coronavirus/ for the most recent guidelines on Coron avirus testing. Fact Sheet for Healthcare Providers: https://www.fda.gov/media/596915/downloa d Fact Sheet for Patients: https://www.fda.gov/media/542475/downloa d Specimen Anatomical Collection Method Collection Time Receive d Time (Source) Location / / Volume Laterality Varies 08/26/2021 7:39 AM 8:17 (Nasopharynx) CDT AM CDT Sadia Kelley APRN C.N.P., M.S.N. LAB MICROBIOLOGY - GENERAL ORDERABLES Performing Organization Address City/State/ZIP Code Phon e Number [facility] - [address] [place], [place] [address] [facility] [place] [address] [facility] [address] documented in this encounter Visit Diagnoses Diagnosis Encounter For Preprocedural Laboratory E xamination (COVID-19) - Primary Negative COVID-19 Test (Contact With And (Suspected) Exposure To COVID-19) Abnormal Uterine And Vaginal Bleeding Un specified documented in this encounter Additional Health Concerns Infection Onset Date Last Indicated Resolved Time COVID19 Pending 08/26/2021 08/26/2021 08/26/2021 12:17 PM CDT documented as of this encounter
--- OUTSIDE RECORDS SUMMARY | 2021-11-01 11:28 | XMS_ITS | Encounter Summary ---
:1990 Author Organization [facility] Address [address] [place] [address] Care Team Providers Name Role Phone Unavailable Primary Care Provider Unavailable Reason for Referral Outpatient (Routine) - Authorized Specialty Diagnoses / Procedures Referred By Contact Refer red To Contact Obstetrics and Diagnoses Abnormal Uterine And Vaginal Bleeding Unspecified Hemorrhage Tsering Eaton M.D. [facility] [address] [place] [address] Referral ID Status Reason Start Date Expiration Date Visits V isits Requested Authorized [id number] Authorized 08/20/2021 08/20/2022 1 1 Encounter Details Date Type Department Care Team Description 08/19/2021 [facility] Tsering Eaton A bnormal Uterine And Vaginal Bleeding Unspecified (Primary Dx); AND CLINICS Abdirashid Hemorrhage [address] [facility] [address] [place] [address] [place], [place] [phone] [address] Social History Tobacco Use Types Packs/Day Years Used Date Smoking Tobacco: Never Assessed Sex Assigned at Date Recorded Not on file documented as of this encounter Plan of Treatment Scheduled Referrals Name Type Priority Associated Order Schedule Diagnoses Gynecology Referral Outpatient Referral Routine Abnormal Uteri ne Expected: And Vaginal 08/20/2021 Bleeding (Approximate), Unspecified Expires: Hemorrhage 11/20/2022 documented as of this encounter Visit Diagnoses Diagnosis Abnormal Uterine And Vaginal Bleeding Un specified - Primary Hemorrhage documented in this encounter Additional Health Concerns Infection Onset Date Last Indicated Resolved Time COVID19 Pending 08/26/2021 08/26/2021 08/26/2021 12:17 PM CDT documented as of this encounter
--- OUTSIDE RECORDS SUMMARY | 2021-11-01 11:28 | XMS_ITS | Encounter Summary ---
:1990 Author Organization [facility] Address [address] [place] [address] Care Team Providers Name Role Phone Unavailable Primary Care Provider Unavailable Reason for Referral MRI/CAT/PET Scan (Routine) - Closed Specialty Diagnoses / Procedures Referred By Contact Refer red To Contact Radiology Diagnoses Abnormal Uterine And Vaginal Bleeding Unspecified Other Injury [facility]us [facility] Abdomen Pelvis Angiogram with IV Contrast CT Abdomen Angiogram with IV Contrast IN CTA ABDOMEN WO/W CNTRST IN CTA ABD&PELVIS WO/W CNTRST C.N.P., M.S.N. [address] [place] [address] Referral ID Status Reason Start Date Expiration Date Visits Requ ested Visits Authorized [id number] Closed 08/22/2021 08/22/2022 1 1 Reason for Visit MRI/CAT/PET Scan (Routine) - Closed Specialty Diagnoses / Procedures Referred By Contact Refer red To Contact Radiology Diagnoses Abnormal Uterine And Vaginal Bleeding Unspecified Other Injury Uterus Initial Sadia Kelley APRN [facility] Procedures CT Abdomen Pelvis Angiogram with IV Contrast CT Abdomen Angiogram with IV Contrast IN CTA ABDOMEN WO/W CNTRST IN CTA ABD&PELVIS WO/W CNTRST C.N.P., M.S.N. [address] [place] [address] Referral ID Status Reason Start Date Expiration Date Visits Requ ested Visits Authorized [id number] Closed 08/22/2021 08/22/2022 1 1 Encounter Details Date Type Department Care Team Description 08/26/2021 Hospital Encounter Department of Sadia Kelley Uterine And Vaginal Bleeding Unspecified; Radiology, Jovanny R, MEDICAL OBSERVER, C.N.P., Other I njury Uterus Initial Building, in M.S.N. [place] [address] [address] [place], [place] [address] [facility] [address] [place], [place] [phone] (Work) [phone] Social History Tobacco Use Types Packs/Day Years Used Date Smoking Tobacco: Never Assessed Sex Assigned at Date Recorded Not on file documented as of this encounter Medications at Time of Discharge Medication Sig Dispensed Refills Start Date End Date clotrimazole (LOTRIMIN) APPLY ONE APPLICATION 0 0 08/12/2021 1 % cream TOPICALLY TWO TIMES A DAY docusate sodium Take 100 mg by mouth 2 0 (COLACE) 100 mg capsule (two) times a day. ferrous sulfate 325 mg Take 325 mg by mouth 2 0 (65 mg iron) tablet (two) times a day. fluticasone propionate INSTILL 2 SPRAYS INTO 0 (FLONASE) 50 EACH NOSTRIL EVERY DAY mcg/actuation nasal spray ondansetron (ZOFRAN) 4 TAKE ONE TABLET BY 0 08/19 mg tablet MOUTH EVERY 4 TO 6 HOURS NEEDED VIT Take by mouth daily. 0 [id number] ORAL Junel 1.5, 21, 0 08/26/202108/28/ 022 1.5-30 mg-mcg tablet documented as of this encounter Plan of Treatment Not on filedocumented as of this encounter Procedures Procedure Name Priority Date/Time Associated Comments Diagnosis CT ABDOMEN PELVIS RAD - Routine 08/26/2021 9:36 Abnormal Uterine Re sults for this ANGIOGRAM WITH IV (most inpatients AM CDT And Vaginal proced ure are in CONTRAST and all Bleeding the results outpatients) Unspecified section. Other Injury Uterus Initial documented in this encounter Results CT Abdomen Pelvis Angiogram with IV Contrast [...] Bleeding Un specified Other Injury Uterus Initial documented in this encounter Administered Medications Inactive Administered Medications - up to 3 most recent administrations Medication Order MAR Action Action Date Dose Rate Site iopromide 370 mg iodine/mL Given 08/26/2021 9:12 AM CDT 100 mL injection 1-162 mL (ULTRAVIST) 1-162 mL, intravenous, Once in imaging, contrast, Starting on Wed08/26/21 at 0842, For 1 dose, Imaging Protocol Orders, Dose per Radiant Medication Guidelines sodium chloride (PF) 0.9 % injection 1-1 00 mL Given 08/26/2021 9:13 AM CDT 30 mL 1-100 mL, intravenous, Once, On Wed08/26/21 at 0845, For 1 dose, Imaging Protocol Orders documented in this encounter Additional Health Concerns Infection Onset Date Last Indicated Resolved Time COVID19 Pending 08/26/2021 08/26/2021 08/26/2021 12:17 PM CDT documented as of this encounter
--- OUTSIDE RECORDS SUMMARY | 2021-11-01 11:28 | XMS_ITS | Encounter Summary ---
:1990 Author Organization [facility] Address [address] [place] [address] Care Team Providers Name Role Phone Unavailable Primary Care Provider Unavailable Encounter Details Date Type Department Care Team Description 08/26/2021 Hospital Encounter Department of Sadia Kelley Uterine And Laboratory Medicine R, BRIDAL SALES CONSULTANT, C.N.P., Vagi nal Bleeding and Pathology, M.S.N. Unspecified [address] [phone] [place] [address] [place], [place] (Work) [phone] Social History Tobacco Use Types Packs/Day Years Used Date Smoking Tobacco: Never Assessed Sex Assigned at Date Recorded Not on file documented as of this encounter Medications at Time of Discharge Medication Sig Dispensed Refills Start Date End Date clotrimazole (LOTRIMIN) APPLY ONE APPLICATION 0 0 08/12/2021 1 % cream TOPICALLY TWO TIMES A DAY fluticasone propionate INSTILL 2 SPRAYS INTO 0 (FLONASE) 50 EACH NOSTRIL EVERY DAY mcg/actuation nasal spray ondansetron (ZOFRAN) 4 TAKE ONE TABLET BY 0 08/19 mg tablet MOUTH EVERY 4 TO 6 HOURS NEEDED documented as of this encounter Plan of Treatment Not on filedocumented as of this encounter Procedures Procedure Name Priority Date/Time Associated Diagnosis Comme nts CBC WITHOUT Routine 08/26/2021 8:29 AM Abnormal Uterine And R esults for this DIFFERENTIAL, B CDT Vaginal Bleeding procedur e are in Unspecified the results section. BASIC METABOLIC Routine 08/26/2021 8:29 AM Abnormal Uterine An d Results for this PANEL, S/P CDT Vaginal Bleeding procedure a re in Unspecified the results section. documented in this encounter Results (ABNORMAL) Basic Metabolic Panel [...] 08/26/2021 DTL Black/ mL/min/BSA 9:30 AM CDT Prydeinig Comment: ----ADDITIONAL INFORMATION---- Estimated GFR calculated using [...] Organization Address City/State/ZIP Code Phon e Number [facility] - [address] [place], [place] [address] [facility] [place] [address] Laboratories-[facility] [address] (ABNORMAL) CBC without Differential (08/26/2021 8:29 AM CDT) [facility] gist Method Time Signature Hemoglobin 10.2 [...] Laterality Blood (Blood, 08/26/2021 8:29 AM 08/27/19 22 8:50 Venous) CDT AM CDT Sadia Kelley APRN C.N.P., M.S.N. LAB BLOOD ADD-ON Performing Organization Address City/[facility] Phon e Number [facility] - [address] [place], [place] [address] [facility] [place] [address] [facility] 200 [facility] documented in this encounter Visit Diagnoses Diagnosis Abnormal Uterine And Vaginal Bleeding Un specified documented in this encounter Additional Health Concerns Infection Onset Date Last Indicated Resolved Time COVID19 Pending 08/26/2021 08/26/2021 08/26/2021 12:17 PM CDT documented as of this encounter
--- OUTSIDE RECORDS SUMMARY | 2021-11-01 11:29 | XMS_ITS | Clinical Summary ---
:1990 Author Organization [facility] Address [facility] [place] [address] Care Team Providers Name Role Phone Oswaldo Wiggins Primary Care Provider [phone] Allergies Active Allergy Reactions Severity Noted Date Comments Promethazine Other (See Comments) 01/11/2017 seizure s Medications No known medications Social History Tobacco Use Types Packs/Day Years Used Date Never Smoker Smokeless Tobacco: Never Used Alcohol Use Standard Drinks/Week Comments Yes 0 (1 standard drink = 0.6 oz pure alcoho l) social Alcohol Habits Answer Date Recorded How often do you have a drink containing alcohol? Not asked How many drinks containing alcohol do you have on a typical Not asked day when you are drinking? How often do you have six or more drinks on one occasion? No t asked Comment: social 01/11/2017 Sex Assigned at Date Recorded Not on file Last Filed Vital Signs Vital Sign Reading Time Taken Comments Blood Pressure 132/73 01/03/2018 12:30 PM COMMUNITY RESOURCE OFFICER Pulse 84 01/03/2018 10:51 AM COMMUNITY RESOURCE OFFICER Temperature 36.6 ??C (97.9 ??F) 01/03/2018 10:51 AM COMMUNITY RESOURCE OFFICER Respiratory Rate 10 01/03/2018 12:30 PM COMMUNITY RESOURCE OFFICER Oxygen Saturation 100% 01/03/2018 12:30 PM COMMUNITY RESOURCE OFFICER Inhaled Oxygen Concentration - - Weight 95.3 kg (210 lb) 01/11/2017 1:10 PM COMMUNITY RESOURCE OFFICER Height - - Body Mass Index - - Plan of Treatment Health Maintenance Due Date Last Done Comments ADVANCE CARE PLANNING 1990 ANNUAL REVIEW OF HM ORDERS 1989 PREVENTIVE CARE VISIT 1989 COVID-19 Vaccine (#1) 02/03/1990 HIV SCREENING 2004 HEPATITIS C SCREENING 08/05/2007 PAP 2010 DTAP/TDAP/TD IMMUNIZATION (1 2014 - Tdap) PHQ-2 (once per calendar 02/15/2021 year) INFLUENZA VACCINE (#1) 2021 HEPATITIS B IMMUNIZATION Completed 09/21/1995, 04/02/1995, 08/28/1994 IPV IMMUNIZATION Aged Out No longer eligi ble based on patient's age to complete this to pic MENINGITIS IMMUNIZATION Aged Out No longe r eligible based on patient's age to complete this to pic Pneumococcal Vaccine: Aged Out No longer eligible based Pediatrics (0 to 5 Years) and on patient's age to At-Risk Patients (6 to 64 comple te this topic Years) Insurance Payer Benefit Plan / Subscriber ID Effective Phone Address T ype Group Dates [facility] [id number] [facility] [phone] [address] O OPEN ACCESS ent [address] [place] [address] Care Teams Case Management Specialist Relationship Specialty Start Date End Date Oswaldo Wiggnis PCP - General Family Practice 01/11/17 [id number] [place] [id number]
--- OUTSIDE RECORDS SUMMARY | 2021-11-01 11:29 | XMS_ITS | Encounter Summary ---
:1990 Author Organization [facility] Address [address] [place] [address] Care Team Providers Name Role Phone Ana Mehta APRN, CNP Primary Care Provider [phone] Reason for Visit Reason Comments IUD Removal Encounter Details Date Type Department Care Team Description 03/11/2020 Office Visit [facility] Enc ounter for removal Services-INVISIBLE BRACES ORTHODONTIST of intrauterine [address] [place] [address] [address], [address] [place], [place] (Primary Dx) [place] [address] [phone] Social History Tobacco Use Types Packs/Day Years Used Date Smoking Tobacco: Never Smokeless Tobacco: Never Alcohol Use Standard Drinks/Week Comments Yes 6 (1 standard drink = 0.6 oz pure alcoho l) few drinks/week Alcohol Habits Answer Date Recorded How often do you have a drink containing alcohol? Not asked How many drinks containing alcohol do you have on a Not aske d typical day when you are drinking? How often do you have six or more drinks on one Not asked occasion? Comment: few drinks/week 01/21/2016 Sex Assigned at Date Recorded Not on file documented as of this encounter Last Filed Vital Signs Vital Sign Reading Time Taken Comments Blood Pressure 129/86 03/11/2020 2:34 PM COATER HELPER Pulse 86 03/11/2020 2:34 PM COATER HELPER Temperature - - Respiratory Rate - - Oxygen Saturation - - Inhaled Oxygen Concentration - - Weight 115.6 kg (254 lb 12.8 oz) 03/11/2020 2:34 PM COATER HELPER Height - - Body Mass Index 39.9 08/30/2018 9:27 AM CDT documented in this encounter Patient Instructions Patient InstructionsSchSeema mejia MD - 03/11/2020 2:45 PM CST Destini- It was nice to meet you today! Your Mirena IUD was removed intact, so you are now at risk of if you are not using condoms. Please do continue to track your menstrual cycle, in case that data is needed in the future if you are unable to conceive. We discussed having you make sure you multi-vitamin has 400 mcg (0.4 mg) of folic acid or folate. Ifit does not, you may want to get a vitamin to use instead of your multivitamin. Most Women's vitamins do have folic acid in them. Best wishes to you as she seek to start her family! I hope Nichole Gibbs will be able to serve your needs in the future. Take care-- Seema Moncada MD 4:49 PM 03/11/2020 ER HELPER documented in this encounter Progress Notes Seema Moncada MD - 03/11/2020 2:45 PM CST Destini Castelan is a 29 y.o. year old with LMP 03/08/2020 who presents for removal of Mirena IUD that was inserted 02/07/15 Due for pap with HPV screen, however she says she is changing medical clinics and will be starting at [place]. She says the [facility] recommended she come here for Mirena IUD removal, and then initiate primary cares with them. Destini says she will be starting to attempt around May. She has continued to have monthlymenses the whole time she has had the IUD in. Menses are very regular. We reviewed she should start a vitamin with folic acid even prior to conception. She is on a vitamin, she will check and see if she has folic acid in it. Otherwise she has no other questions or concerns. Outpatient Medications Marked as Taking for the 03/11/20 encounter (Office Visit) with Seema Moncada MD Medication Sig Dispense Refill ??? ALBUterol sulfate HFA 108 (90 BASE) MCG/ACT inhaler Inhale 1-2 Puffs every 4 hours as needed forShortness of Breath. 18 g 0 ??? fluticasone propionate (FLONASE) 50 MCG/ACT nasal solution INSTILL 2 SPRAYS INTO EACH NOSTRIL EVERY DAY 48 g 0 ??? zolpidem (AMBIEN) 5 MG tablet Take 1 Tablet by mouth at bedtime as needed. For the night of the study if needed. 1 Tablet 0 Allergies for Destini Castelan Status Agent Date Noted Reaction Type Active PROMETHAZINE 05/17/2007 Syncope Allergy Objective: Blood pressure 129/86, pulse 86, weight 254 lb 12.8 oz (115.6 kg), last menstrual period 03/08/2020,not currently . Estimated body mass index is 39.9 kg/m?? as calculated from the following: Height as of 08/30/18: 5' 7.01 (1.702 m). Weight as of this encounter: 254 lb 12.8 oz (115.6 kg). Well-developed well-nourished young woman in no distress, alert and oriented. External genitalia, BUS, vagina, cervix normal. She does require the very long, Loza speculum. Bloody mucus present. The IUD strings are grasped, and with 1st attempt the IUD strings actually broke off a bit, but there was still enough string to grasp. Second attempt, the IUD is removed intact, with a little more than the usual resistance. Tolerated well. Assessment: Removal of Mirena IUD. Pre conceptual advice. Plan: She will check to see that her vitamin has folic acid in it. If not, she will stop the multivitamin and start a . She is going to transfer care to the [facility]. She will continue to track menses, and is aware that she should use condoms or other contraceptive until she is ready to accept . She has no other questions today. Seema Moncada MD 3:02 PM 03/11/2020 ER HELPER documented in this encounter Plan of Treatment Not on filedocumented as of this encounter Visit Diagnoses Diagnosis Encounter for removal of intrauterine co ntraceptive device - Primary documented in this encounter Care Teams Machinist Brake Relationship Specialty Start Date End Date Ana Mehta APRN, TAPER MACHINE PCP - General 07/11/13 [id number] [place] [id number] documented as of this encounter
--- OUTSIDE RECORDS SUMMARY | 2021-11-01 11:29 | XMS_ITS | Encounter Summary ---
:1990 Author Organization [facility] Address [address] [place] [address] Care Team Providers Name Role Phone Ana Mehta APRN, AVIVA Primary Care Provider [phone] Encounter Details Date Type Department Care Team Description 12/08/2017 Lab Visit [facility] Chest pain, unspecified type ; [address] Palpitations [place], [place] [id number] Social History Tobacco Use Types Packs/Day Years [...] Name Priority Date/Time Associated Diagnosis Comme nts CREATININE / GFR STAT 12/08/2017 3:16 PM Chest pain, Resul ts for this CDT unspecified type procedure a re in the results section. COMPLETE BLOOD STAT 12/08/2017 3:16 PM Palpitations Results for this COUNT-W/DIFF CDT Chest pain, procedure are i n unspecified type the results section. TSH, SENSITIVE Routine 12/08/2017 3:16 PM Palpitations Results for this CDT procedure are i n the results section. DIFFERENTIAL STAT 12/08/2017 3:16 PM Results f or this CDT procedure are i n the results section. ELECTROLYTE PANEL STAT 12/08/2017 3:16 PM Chest pain, Resu lts for this CDT unspecified type procedure a re in the results section. GLUCOSE - FASTING > 8 Routine 12/08/2017 3:16 PM Chest pain, Results for this HRS FASTING CDT unspecified type procedure a re in the results section. CALCIUM Routine 12/08/2017 3:16 PM Chest pain, Results f or this CDT unspecified type procedure a re in the results section. BUN STAT 12/08/2017 3:16 PM Chest pain, Results f or this CDT unspecified type procedure a re in the results section. documented in this encounter Results Differential (12/08/2017 3:16 PM CDT) P athologist Signature Absolute 7.0 1.8 - 8.0 PN SOFT Neutrophils k/cmm Absolute 1.5 1.1 - 4.0 PN SOFT Lymphocytes k/cmm Absolute 0.8 0.2 - 0.8 PN SOFT Monocytes k/cmm Absolute 0.2 0.0 - 0.5 PN SOFT Eosinophils k/cmm Absolute 0.0 0.0 - 0.2 PN SOFT Basophils k/cmm Immature 0.3 0.0 - 0.5 PN SOFT Granulocytes % Specimen Anatomical Collection Method Collection Time Receive d Time (Source) Location / / Volume Laterality 12/08/2017 3:16 PM 8 3:16 CDT PM CDT Narrative PN SOFT - 12/08/2017 3:21 PM CDT Performed at [facility], [address] [place] [address] CLIA number [id number] Leah Styles MD LAB_1 Performing Organization Address City/State/ZIP Code Phon e Number PN SOFT [address] [place] [address] TSH (12/08/2017 3:16 PM CDT) athologist Signature Thyroid 0.86 0.30 - PN SOFT Stimulating 4.50 Hormone uIU/mL Specimen Anatomical Collection Method Collection Time Receive d Time (Source) Location / / Volume Laterality 12/08/2017 3:16 PM 8 6:38 CDT PM CDT Narrative PN SOFT - 12/08/2017 7:22 PM CDT Performed at [facility], [address] [place] [address] CLIA number [id number] Leah Styles MD LAB_1 Performing Organization Address City/[facility] Phon e Number PN SOFT [address] [place] [address] Complete Blood Count W/Diff (12/08/2017 3:16 PM CDT) athologist Signature White Blood Cell 9.6 3.8 - 11.0 PN SOFT Count k/cmm Red Blood Cell 4.84 3.70 - PN SOFT Count 5.20 m/cmm Hemoglobin 14.6 11.8 - PN SOFT 15.5 g/dL Hematocrit 42.1 35.0 - PN SOFT 46.0 % Mean Corpuscular 87.0 80.0 - PN SOFT Volume 100.0 fL RDW 11.6 11.0 - PN SOFT 15.0 % Platelet Count 249 140 - 450 PN SOFT k/cmm Specimen Anatomical Collection Method Collection Time Receive d Time (Source) Location / / Volume Laterality 12/08/2017 3:16 PM 8 3:16 CDT PM CDT Narrative PN SOFT - 12/08/2017 3:20 PM CDT Performed at [facility], [address] [place] [address] CLIA number [id number] Leah Styles MD LAB_1 Performing Organization Address City/[facility] Phon e Number PN SOFT [address] [place] [address] Glucose (12/08/2017 3:16 PM CDT) athologist Signature Lab Glucose 79 70 - 100 PN SOFT mg/dL Comment: The stated glucose range is for the fast ing state. Non-fasting glucose range is 70-180 mg/d L Specimen Anatomical Collection Method Collection Time Receive d Time (Source) Location / / Volume Laterality 12/08/2017 3:16 PM 8 3:16 CDT PM CDT Narrative PN SOFT - 12/08/2017 4:43 PM CDT Performed at [facility], [address] [place] [address] CLIA number [id number] Leah Styles MD LAB_1 Performing Organization Address City/[facility] Phon e Number PN SOFT [address] [place] [address] Calcium (12/08/2017 3:16 PM CDT) athologist Signature Calcium 10.0 8.4 - 10.4 PN SOFT mg/dL Specimen Anatomical Collection Method Collection Time Receive d Time (Source) Location / / Volume Laterality 12/08/2017 3:16 PM 8 3:16 CDT PM CDT Narrative PN SOFT - 12/08/2017 4:43 PM CDT Performed at [facility], [address] [place] [address] CLIA number [id number] Leah Styles MD LAB_1 Performing Organization Address [facility] Phon e Number PN SOFT [address] [place] [address] Electrolyte Panel (12/08/2017 3:16 PM CDT) athologist Signature Sodium 143 136 - 145 PN SOFT mmol/L Potassium 4.3 3.5 - 5.2 PN SOFT mmol/L Chloride 105 98 - 109 PN SOFT mmol/L CO2 27 22 - 31 PN SOFT mmol/L Specimen Anatomical Collection Method Collection Time Receive d Time (Source) Location / / Volume Laterality 12/08/2017 3:16 PM 8 3:16 CDT PM CDT Narrative PN SOFT - 12/08/2017 3:36 PM CDT Performed at [facility], [address] [place] [address] CLIA number [id number] Leah Styles MD LAB_1 Performing Organization Address City/[facility] Code Phon e Number PN SOFT [address] [place] [address] Creatinine (12/08/2017 3:16 PM CDT) athologist Signature Creatinine Serum 0.80 0.55 - PN SOFT 1.02 mg/dL Est GFR >60 >60 PN SOFT Am mL/min/1.7 3m2 Est GFR Non-Afr >60 >60 PN SOFT Am mL/min/1.7 3m2 Comment: Normal>60, moderate decrease 30 - 59, se wayne decrease 15 - 29, renal failure <15 mL/min/1.73 m2 NOTE: ??Choose the eGFR result above charles ropriate for the race of the patient. Specimen Anatomical Collection Method Collection Time Receive d Time (Source) Location / / Volume Laterality 12/08/2017 3:16 PM 8 3:16 CDT PM CDT Narrative PN SOFT - 12/08/2017 3:36 PM CDT Performed at [facility], [facility] [address] [place] [address] CLIA number [id number] Leah Styles MD LAB_1 Performing Organization Address City/[facility] Code Phon e Number PN SOFT [address] [place] [address] BUN (12/08/2017 3:16 PM CDT) athologist Signature Blood Urea <10 9 - 26 PN SOFT Nitrogen mg/dL Specimen Anatomical Collection Method Collection Time Receive d Time (Source) Location / / Volume Laterality 12/08/2017 3:16 PM 8 3:16 CDT PM CDT Narrative PN SOFT - 12/08/2017 3:36 PM CDT Performed at [facility], [address] [place] [id number] CLIA number [id number] Leah Styles MD LAB_1 Performing Organization Address City/[facility] Code Phon e Number PN SOFT [address] [place] [address] documented in this encounter Visit Diagnoses Diagnosis Chest pain, unspecified type Palpitations documented in this encounter Care Teams Superintendent Overhead Distribution Relationship Specialty Start Date End Date Ana Mehta, MORIS, CAREER GUIDANCE TECHNICIAN PCP - General 07/11/13 [address] [place] [id number] documented as of this encounter
--- OUTSIDE RECORDS SUMMARY | 2021-11-01 11:29 | XMS_ITS | Encounter Summary ---
:1990 Author Organization [facility] Address [facility] [place] [address] Care Team Providers Name Role Phone Oswaldo Wiggins Primary Care Provider [phone] Reason for Visit Reason Comments Chest Pain Encounter Details Date Type Department Care Team Description 01/11/2017 Emergency [facility] Farida Alexander MD [address] [place] [address] [id number] Atypical chest pain [facility] Emergency Dep t Prem Osorio MD [facility] [address] [place] [address] [address] [place] [address] Social History Tobacco Use Types Packs/Day Years [...] Sign Reading Time Taken Comments Blood Pressure 140/93 01/11/2017 2:44 PM CLASSROOM TEACHER Pulse 87 01/11/2017 1:10 PM CLASSROOM TEACHER Temperature 36.8 ??C (98.3 ??F) 01/11/2017 1:10 PM CLASSROOM TEACHER Respiratory Rate 16 01/11/2017 2:15 PM CLASSROOM TEACHER Oxygen Saturation 99% 01/11/2017 3:00 PM CLASSROOM TEACHER Inhaled Oxygen Concentration - - Weight 95.3 kg (210 lb) 01/11/2017 1:10 PM CLASSROOM TEACHER Height - - Body Mass Index - - documented in this encounter Discharge Instructions Discharge InstructionsPrem Osorio MD - 01/11/2017 3:46 PM CLASSROOM TEACHER Images from the original note were not included. Chest Wall Pain: Costochondritis The chest pain that you have had today is caused by costochondritis. This condition is caused by an inflammation of the cartilage joining your ribs to your breastbone. It is not caused by heart or lungproblems. Your healthcare team has made sure that the chest pain you feel is not from a life threatening cause of chest pain such as heart attack, collapsed lung, blood clot in the lung, tear in the aorta, or esophageal rupture. The inflammation may have been brought on by a blow to the chest, liftingheavy objects, intense exercise, or an illness that made you cough and sneeze a lot. It??often occurs??during times of emotional stress.??It can be painful, but it is not dangerous. It usually goes away in 1 to 2 weeks. But it may happen again. Rarely, a more serious condition may cause symptoms similar to costochondritis. That???s why it???s important to watch for the warning signs listed below. Home care Follow these guidelines when caring for yourself at home: ?? If you feel that emotional stress is a cause of your condition, try to figure out the sources of that stress. It may not be obvious. Learn ways to deal with the stress in your life. This can includeregular exercise, muscle relaxation, meditation, or simply taking time out for yourself. ?? You may use acetaminophen, ibuprofen, or naproxen to control pain, unless another pain medicine was prescribed. If you have liver or kidney disease or ever had a stomach ulcer, talk with your healthcare provider before using these medicines. ?? You can also help ease pain by using a hot, wet compress or heating pad. Use this with or withouta medicated skin cream that helps relieves pain. ?? Do stretching exercise as advised by your provider. ?? Take any prescribed medicines as directed. Follow-up care Follow up with your healthcare provider, or as advised, if you do not start to get better in the next 2 days. When to seek medical advice Call your healthcare provider right away if any of these occur: ?? A change in the type of pain. Call if it feels different, becomes more serious, lasts longer, or spreads into your shoulder, arm, neck, jaw, or back. ?? Shortness of breath or pain gets worse when you breathe ?? Weakness, dizziness, or fainting ?? Cough with dark-colored sputum (phlegm) or blood ?? Abdominal pain ?? Dark red or black stools ?? Fever of 100.4??F (38??C) or higher, or as directed by your healthcare provider Date Last Reviewed: 01/16/2016 ?? [id number] [employer]. [address] [place] [address]. All rights reserved. This information is not intended as a substitute for professional medical care. Always follow your healthcare professional's instructions. SROOM TEACHER documented in this encounter Medications at Time of Discharge Medication Sig Dispensed Refills Start Date End Date naproxen (NAPROSYN) 500 Take 1 tablet (500 16 tablet 0 12/1701/19/2017 MG tablet mg) by mouth 2 times daily (with meals) for 8 days documented as of this encounter ED Notes Zakiya Zuniga RN - 01/11/2017 2:47 PM CST Patient returns from x-ray. Waiting for results. SROOM TEACHER Zakiya Zuniga RN - 01/11/2017 2:33 PM CST Report received, care assumed. SROOM TEACHER Vero Bronson RN - 01/11/2017 1:37 PM CST Labs drawn with IV insertion and sent SROOM TEACHER Debra Stockton RN - 01/11/2017 1:02 PM CST Patient sent here by Nichole Gibbs. Patient seen there this morning with chest pressure and SOB onset three weeks ago with cold symptoms for three days. Also had anterior changes on EKG. 324 mg baby asa given at [facility].Sent by Dr. Milian and Dr. Farmer (fuel agent). Patient also complains of bilateral calf tenderness. No recent travel. SROOM TEACHER Prem Osorio MD - 01/11/2017 12:51 PM CST History Chief Complaint: Chest Pain HPI Destini Cano is a 26 year old female who presents with chest pain. The patient states that she has been experiencing chest pressure and shortness of breath for the last three weeks which started after moving boxes. This became accompanied by cold symptoms (cough, congestion, body aches) over the last three days. She presented in clinic at [facility] earlier today where anterior EKG changes werenoted, baby aspirin was given, and they recommended she be seen in the ED. At the time of her examination she describes her pain as starting in her sternum and radiating into her lungs. The pain is worse with deep breaths and movement. She also notes that she has been having bilateral calf tenderness, though denies any recent travel. Patient denies fevers or any other complaints. Allergies: Promethazine Medications: The patient is not currently taking any prescribed medications. Past Medical History: Anemia Past Surgical History: Mole Removal Nasal Polyp Removal Family History: History reviewed. No pertinent family history. 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 HENT: Positive for congestion. Respiratory: Positive for cough and shortness of breath. Cardiovascular: Positive for chest pain. Musculoskeletal: Body aches All other systems reviewed and are negative. Physical Exam Patient Vitals for the past 24 hrs: BP Temp Temp src Pulse Heart Rate Resp SpO2 Weight 01/11/17 1500 - - - - - - 99 % - 01/11/17 1444 (!) 140/93 - - - - - 100 % - 01/11/17 1430 - - - - 84 - 100 % - 01/11/17 1415 - - - - 79 16 99 % - 01/11/17 1400 - - - - 80 18 98 % - 01/11/17 1332 - - - - 77 16 100 % - 01/11/17 1325 - - - - 85 21 98 % - 01/11/17 1310 (!) 135/115 98.3 ??F (36.8 ??C) Oral 87 - 13 98 % 95.3 kg (210 lb) Physical Exam Nursing note and vitals reviewed. Constitutional: Cooperative. HENT: Mouth/Throat: Moist mucous membranes. Eyes: EOMI, nonicteric sclera Cardiovascular: Normal rate, regular rhythm, no murmurs, rubs, or gallops Pulmonary/Chest: Effort normal and breath sounds normal. No respiratory distress. No wheezes. No rales. Abdominal: Soft. Nontender, nondistended, no guarding or rigidity. BS present. Musculoskeletal: Normal range of motion. Pain with palpation to anterior chest wall over costochondral junction. Neurological: Alert. Moves all extremities spontaneously. Skin: Skin is warm and dry. No rash noted. Psychiatric: Normal mood and affect. Emergency Department Course ECG (13:09:13): Rate 83 bpm. HI interval 158. QRS duration 90. QT/QTc 366/430. P-R-T axes -23 0 11. Normal sinus rhythm. RSR or QR pattern in V1 suggests right ventricular conduction delay. Minimal voltage criteria for LVH, may be normal variant. Inferior infarct, age undetermined. Cannot rule out anterior infarct, age undetermined. Abnormal ECG. Interpreted at 1500 by Prem Osorio MD. Imaging: Radiographic findings were communicated with the patient who voiced understanding of the findings. Chest XR, PA & LAT: IMPRESSION: Cardiac silhouette and pulmonary vasculature are within normal limits. No focal airspacedisease, pleural effusion or pneumothorax. Results per radiology. Laboratory: CBC: WNL (WBC 8.6, HGB 14.1, PLT 235) BMP: WNL (Creatinine 0.72) 1334 Troponin: <0.015 D-Dimer: <0.3 Emergency Department Course: Past medical records, nursing notes, and vitals reviewed. 1535: I performed an exam of the patient and obtained history, as documented above. IV inserted and blood drawn. Above interventions provided. The patient was sent for a chest xray while in the emergency department, findings above. I personally reviewed the laboratory results with the Patient and answered all related questions prior to discharge. 1546: I rechecked the patient. Findings and plan explained to the Patient. Patient discharged home with instructions regarding supportive care, medications, and reasons to return. The importance of close follow-up was reviewed. Impression & Plan Medical Decision Making: Destini Cano is a 26 year old female who presents with a chief complaint of chest pain. The differential diagnosis of the patients chest pain includes ACS, angina, pericarditis, PE, pneumonia, pleuritis, dissection, aneurysmal disease, GERD, esophageal spasm, costochondritis/chest wall pain, etc asthe most likely etiologies. Patient's troponin is negative. EKG does have some nonspecific changes, but overall they are not overly concerning to me. Chest x-ray is negative for infiltrate, mass, mediastinal widening, or other acute processes. Patient has been having pain for 2-3 weeks, therefore, a single troponin is sufficient to rule out ACS. A d-dimer is also negative, making PE unlikely. Patientdoes have pain to palpation on mid sternal chest exam. This in conjunction with the history of heavylifting three weeks ago before symptoms began suggests a very likely diagnosis of costochondritis orother musculoskeletal cause of chest pain. I reassured the patient and her partner that this is a non emergent process and should improve on its own within the next several weeks. I will send her home with Naproxen and have her follow up with PCP if not improving and to return to the ED if worsening. She is discharged in stable condition. All questions were answered. Diagnosis: ICD-10-CM 1. Atypical chest pain R07.89 Disposition: Discharged to home with plan as outlined. Discharge Medications: New Prescriptions NAPROXEN (NAPROSYN) 500 MG TABLET Take 1 tablet (500 mg) by mouth 2 times daily (with meals) for 8 days 01/11/2017 [facility] EMERGENCY DEPARTMENT I, Darlene Davidson, laurie serving as a scribe at 3:35 PM on 01/11/2017 to document services personally performed by Prem Osorio MD based on my observations and the provider's statements to me. Prem Osorio MD 01/12/17 0226 SROOM TEACHER documented in this encounter Plan of Treatment Not on filedocumented as of this encounter Procedures Procedure Name Priority Date/Time Associated Comments Diagnosis XR CHEST 2 VIEWS STAT 01/11/2017 2:44 PM Resul ts for this CLASSROOM TEACHER procedure are i n the results section. CBC WITH PLATELETS & STAT 01/11/2017 1:34 PM R esults for this DIFFERENTIAL CLASSROOM TEACHER procedure are i n the results section. TROPONIN I STAT 01/11/2017 1:34 PM Results f or this CLASSROOM TEACHER procedure are i n the results section. D DIMER QUANTITATIVE STAT 01/11/2017 1:34 PM R esults for this CLASSROOM TEACHER procedure are i n the results section. BASIC METABOLIC PANEL STAT 01/11/2017 1:34 PM Results for this CLASSROOM TEACHER procedure are i n the results section. EKG 12-LEAD, TRACING STAT 01/11/2017 1:09 PM R esults for this ONLY CLASSROOM TEACHER procedure are i n the results section. documented in this encounter Results XR Chest 2 Views (01/11/2017 2:44 PM CLASSROOM TEACHER) Anatomical Region Laterality Modality Chest Digital Radiography Specimen (Source) Anatomical Location Collection Method / Collectio n Time Received Time / Laterality Volume Impressions 01/11/2017 2:54 PM CLASSROOM TEACHER IMPRESSION: Cardiac silhouette and pulmonary vasculature are within normal limits. No focal airspace disease , pleural effusion or pneumothorax. HENRRY RODRIGUEZ MD Narrative 01/11/2017 2:54 PM CLASSROOM TEACHER XR CHEST 2 VW 01/11/2017 2:44 PM COMPARISON: None. HISTORY: Chest pain. Procedure Note Henrry Rodriguez MD - 01/11/2017 XR CHEST 2 VW 01/11/2017 2:44 PM COMPARISON: None. HISTORY: Chest pain. IMPRESSION: Cardiac silhouette and pulmo nary vasculature are within normal limits. No focal airspace disease , pleural effusion or pneumothorax. HENRRY RODRIGUEZ MD Lily Alexander MD IMG DIAGNOSTIC IMAGING ORDER PAULO Troponin I (01/11/2017 1:34 PM CLASSROOM TEACHER) athologist Signature Troponin I ES <0.015 0.000 - 01/11/2017 [facility] 0.045 ug/L 2:09 PM [facility] Comment: The 99th percentile for upper reference range is 0.045 ug/L. ??Troponin values in the range of 0.045 - 0.120 ug/L may b e associated with risks of adverse clinical events. Specimen Anatomical Collection Method Collection Time Receive d Time (Source) Location / / Volume Laterality Blood specimen 01/11/2017 1:34 PM 017 1:44 (specimen) CLASSROOM TEACHER PM CLASSROOM TEACHER Lily Alexander MD LAB - BLOOD ORDERABLES Performing Organization Address City/State/ZIP Code Phon e Number [place] [address] [address] [place] [address] [facility] [address] [phone] Basic metabolic panel (01/11/2017 1:34 PM CLASSROOM TEACHER) athologist Signature Sodium 138 133 - 144 01/11/2017 [facility] mmol/L 2:09 PM [facility] Potassium 4.0 3.4 - 5.3 01/11/2017 [facility] mmol/L 2:09 PM [facility] Chloride 105 94 - 109 01/11/2017 [facility] mmol/L 2:09 PM [facility] Carbon Dioxide 27 20 - 32 01/11/2017 [facility] mmol/L 2:09 PM [facility] Anion Gap 6 3 - 14 01/11/2017 [facility] mmol/L 2:09 PM [facility] Glucose 94 70 - 99 01/11/2017 [facility] mg/dL 2:09 PM [facility] Urea Nitrogen 11 7 - 30 01/11/2017 [facility] mg/dL 2:09 PM [facility] Creatinine 0.72 0.52 - 01/11/2017 [facility] 1.04 mg/dL 2:09 PM [facility] GFR Estimate >90 >60 01/11/2017 [facility] mL/min/1.7 2:[address] Comment: Non GFR Calc GFR Estimate If >90 >60 mL/min/1.7m2 01/11/2017 2:09 P [facility] Comment: GFR Calc Calcium 8.8 8.5 - 10.1 mg/dL 01/11/2017 2:09 PM [facility] Specimen Anatomical Collection Method Collection Time Receive d Time (Source) Location / / Volume Laterality Blood specimen 01/11/2017 1:34 PM 017 1:44 (specimen) CLASSROOM TEACHER PM CLASSROOM TEACHER Lily Alexander MD LAB - BLOOD ORDERABLES Performing Organization Address [facility]/ZIP [facility] Phon e Number [facility] [address] [place], [place] [address] [facility] [phone] D dimer quantitative (01/11/2017 1:34 PM CLASSROOM TEACHER) P athologist Signature D Dimer <0.3 0.0 - 0.50 01/11/2017 [facility] ug/ml FEU 2:00 PM [facility] Comment: This D-dimer assay is intended for use i n conjunction with a clinical pretest probability assessment model to exclude pulmonary embolism (PE) and deep venous thrombosis (DVT) in outpatients s uspected of PE or DVT. The cut-off value is 0.5 ug/mL FEU. Specimen Anatomical Collection Method Collection Time Receive d Time (Source) Location / / Volume Laterality Blood specimen 01/11/2017 1:34 PM 017 1:44 (specimen) CLASSROOM TEACHER PM CLASSROOM TEACHER Lily Alexander MD LAB - BLOOD ORDERABLES Performing Organization Address City/[facility]/ZIP Code Phon e Number [facility] [address] [place], [place] [address] [facility] [address] [place], [place] [address] [facility] [phone] CBC with platelets differential (01/11/2017 1:34 PM CLASSROOM TEACHER) Patholo gist Method Time Signature WBC 8.6 4.0 - 01/11/2017 [facility] 11.0 1:49 PM [facility] 10e9/L [facility] RBC Count 4.66 3.8 - 5.2 01/11/2017 [facility] 10e12/L 1:49 PM [facility] Hemoglobin 14.1 11.7 - 01/11/2017 [facility] 15.7 g/dL 1:49 PM [facility] Hematocrit 40.2 35.0 - 01/11/2017 [facility] 47.0 % 1:49 PM [facility] MCV 86 78 - 100 01/11/2017 [facility] fl 1:49 PM [facility] MCH 30.3 26.5 - 01/11/2017 [facility] 33.0 pg 1:49 PM [facility] MCHC 35.1 31.5 - 01/11/2017 [facility] 36.5 g/dL 1:49 PM [facility] RDW 11.9 10.0 - 01/11/2017 [facility] 15.0 % 1:49 PM [facility] Platelet Count 235 150 - 450 01/11/2017 [facility] 10e9/L 1:49 PM [facility] Diff Method Automated 01/11/2017 [facility] Method 1:49 PM [facility] % Neutrophils 67.7 % 01/11/2017 [facility] 1:49 PM [facility] % Lymphocytes 21.4 % 01/11/2017 [facility] 1:49 PM [facility] % Monocytes 7.1 % 01/11/2017 [facility] 1:49 PM [facility] % Eosinophils 3.2 % 01/11/2017 [facility] 1:49 PM [facility] % Basophils 0.3 % 01/11/2017 [facility] 1:49 PM [facility] % Immature 0.3 % 01/11/2017 [facility] Granulocytes 1:49 PM [facility] Nucleated RBCs 0 0 /100 01/11/2017 [facility] 1:49 PM [facility] Absolute 5.8 1.6 - 8.3 01/11/2017 [facility] Neutrophil 10e9/L 1:49 PM [facility] Absolute 1.9 0.8 - 5.3 01/11/2017 [facility] Lymphocytes 10e9/L 1:49 PM [facility] Absolute 0.6 0.0 - 1.3 01/11/2017 [facility] Monocytes 10e9/L 1:49 PM [facility] Absolute 0.3 0.0 - 0.7 01/11/2017 [facility] Eosinophils 10e9/L 1:49 PM [facility] Absolute 0.0 0.0 - 0.2 01/11/2017 [facility] Basophils 10e9/L 1:49 PM [facility] Abs Immature 0.0 0 - 0.4 01/11/2017 [facility] Granulocytes 10e9/L 1:49 PM [facility] Absolute 0.0 01/11/2017 [facility] Nucleated RBC 1:49 PM [facility] Specimen Anatomical Collection Method Collection Time Receive d Time (Source) Location / / Volume Laterality Blood specimen 01/11/2017 1:34 PM 017 1:44 (specimen) CLASSROOM TEACHER PM CLASSROOM TEACHER Lily Alexander MD LAB - BLOOD ORDERABLES Performing Organization Address City/[facility]/ZIP Code Phon e Number [place] [address] [place], [place] [address] [facility] [address] [place], [place] [address] [facility] [phone] EKG 12 lead (01/11/2017 1:09 PM CLASSROOM TEACHER) [facility] gist Method Time Signature Interpretation ECG Click View RADIOLOGY Image link RESULTS to view waveform and result Specimen (Source) Anatomical Collection Method Collection Time Re ceived Time Location / / Volume Laterality 01/11/2017 1:09 PM CLASSROOM TEACHER Lily Alexander MD ECG ORDERABLES Performing Organization Address City/[facility] Phon e Number RADIOLOGY RESULTS documented in this encounter Visit Diagnoses Diagnosis Atypical chest pain Other chest pain documented in this encounter Care Teams Bulb Tester Relationship Specialty Start Date End Date Oswaldo Wiggins PCP - General Family Practice 01/11/17 [address] [place] [address] documented as of this encounter
--- OUTSIDE RECORDS SUMMARY | 2021-11-01 11:29 | XMS_ITS | Encounter Summary ---
:1990 Author Organization [employer] Address [address] [place] [address] Care Team Providers Name Role Phone Ana Mehta APRN, CNP Primary Care Provider [phone] Reason for Visit Reason Comments HEARTBEAT,IRREGULAR Encounter Details Date Type Department Care Team Description 12/06/2017 Nurse Triage [facility] Ana Mehta, HEARTBEAT,IRREGULAR Medicine [facility] [address] [address] [place] [address] [place], [place] [phone] (Wo rk) Social History Tobacco Use Types Packs/Day Years [...] on file documented as of this encounter Nursing Notes Elisa Hubbard RN - 12/06/2017 5:49 PM CDT Reason for Disposition ? ? Palpitations are a chronic symptom (recurrent or ongoing AND present > 4 weeks) Protocols used: HEART RATE AND HEARTBEAT [id number] Pt called reports that she has been having heart palpitations for the past 3-4 weeks, pt denies difficulty breathing chest pain or shortness of breath. Home care was given, advised to call back directly if there are further questions, or if these symptoms fail to improve as anticipated or worsen. Problem list, medication and allergy reviewed. An appointment was scheduled. Alejandro Wolff - 12/06/2017 5:40 PM CDT Symptoms Describe your symptoms (if pain, include location): Heart palpitations When did they start? On going off and on Additional comments (related to the above concern): Pt stated had some slight chest pressure one day but this has been happening off and on. If a prescription is needed, patient would like it filled at the pharmacy listed in Meds & Orders. (Verify the pharmacy patient would like to use for this request is highlighted in blue in PharmacySelection under Meds & Orders) Is it okay to leave a detailed message on your voicemail? Yes (Advise caller that the PN call back number will end with [phone] or unknown) For urgent symptoms: Please route and transfer to: Triage Pool (high priority) For routine symptoms: Please route to: Triage Pool (only transfer if caller insists) documented in this encounter Plan of Treatment Not on filedocumented as of this encounter Visit Diagnoses Not on filedocumented in this encounter Care Teams Poultry Barn Manager Relationship Specialty Start Date End Date Ana Mehta, RECREATION INSTRUCTOR, OFFICE MACHINE SERVICER APPRENTICE PCP - General 07/11/13 [address] [address] [place] [address] documented as of this encounter
--- OUTSIDE RECORDS SUMMARY | 2021-11-01 11:29 | XMS_ITS | Encounter Summary ---
:1990 Author Organization [facility] Address [address] [place] [address] Care Team Providers Name Role Phone nAa Mehta APRN, CNP Primary Care Provider [phone] Reason for Visit Reason Comments Well Visit 26 yrs Encounter Details Date Type Department Care Team Description 01/27/2017 Office Visit [facility]ney Dexter woman exam with routine gynecological exam (Primary Dx); Services-[facility], [place], [facility] Family planning, IUD (intrauterine devic e) check/reinsertion/removal; [address] Obesit y, unspecified classification, unspecified obesity type, unspecified whether serious comorbidity present; Drive, [address] [address] Screening for lipoid disorders; [place], [place] Screening f or diabetes mellitus; [id number] Screening for thyroid disorder [phone] (Wo rk) Social History Tobacco Use Types [...] Sign Reading Time Taken Comments Blood Pressure 129/72 01/27/2017 3:29 PM PECAN HULLER Pulse 84 01/27/2017 3:29 PM PECAN HULLER Temperature - - Respiratory Rate - - Oxygen Saturation - - Inhaled Oxygen Concentration - - Weight 103.1 kg (227 lb 6.4 oz) 01/27/2017 3:29 PM PECAN HULLER Height 170.2 cm (5' 7) 01/27/2017 3:29 PM PECAN HULLER Body Mass Index 35.62 01/27/2017 3:29 PM PECAN HULLER documented in this encounter Progress Notes Isacc, Courtney R, SOCK FOLDER, CABLE OPERATOR - 01/27/2017 3:30 PM CST Preventive Exam & Pelvic SUBJECTIVE: Destini Cano is a 26 y.o. female, who presents for a routine preventive physical exam. She does not have concerns today. LMP: No LMP recorded. Patient is not currently having periods (Reason: IUD). No postcoital bleeding. Uses Mirena IUD inserted 02/07/15 for contraception. Condoms are not used. She is not interested in STD screening today. She does not have pelvic pain. She does not have vaginitis symptoms. Female Cancer Hx: She does not have a personal history of female cancers: Breast, Uterine, Ovarian, Cervical She does not have a family history of female cancers: Breast, Uterine, Ovarian, Cervical Obstetrical History: Obstetric History T0 L0 SAB0 TAB0 Ectopic0 Multiple0 Live Births0 Medical/Surgical history: Past Medical History: Diagnosis Date ??? Abnormal Pap smear 09/2009 ASCUC+HRHPV ??? Anemia ??? Encounter for insertion of intrauterine contraceptive device 02/07/2015 ??? Immunization, other disease ??? Irregular menstrual cycle ??? Pap smear abnormality of cervix ??? Sinusitis ??? Urinary tract infection ??? Varicella Past Surgical History: Procedure Laterality Date ??? FOOT SURGERY Left 07/30/2016 foreign body removal ??? NASAL POLYP SURGERY ??? NASAL/SINUS ENDOSCOPY 2005 Endonasal Sinus Surgery ??? PREMALIG/BENIGN SKIN LESION EXCISION Mole removal ??? WISDOM TEETH EXTRACTION Adverse Drug Reactions: Pt's Adverse Drug Reactions were reviewed and updated today. Current Medications: Reviewed and updated today. Family History Problem Relation Age of Onset ??? Thyroid Disorder Mother ??? High Cholesterol Mother ??? Liver Disease Mother ??? Thyroid Disorder Maternal Grandmother ??? Depression Maternal Grandmother ??? Asthma Maternal Grandmother ??? Diabetes Maternal Grandfather ??? High Cholesterol Maternal Grandfather ??? Thyroid Disorder Maternal Grandfather ??? Thyroid Disorder Paternal Grandmother ??? High Cholesterol Father ??? Hypertension Brother ??? Cancer Paternal Grandfather Sexual History: Number of partner in the last year: 1 Social History: Employment Status: [employer] Marital Status: Partnered, Engaged - Getting in 07/2017 Children: 0, ages: 0 Pt does not have concerns for domestic violence Tobacco: 0 ETOH: Rare per wk Exercise: No regular exercise Preventive Health Assessment: Pap: 01/2016 normal cytology Mammogram: Never Labs: No recent preventative health labs Immunizations: Tdap 2012; Flu vaccine declines; HPV Series completed Review of Systems: With the exception of any items noted above, the remainder of the complete ROS is negative. OBJECTIVE: Vital Signs: BP 129/72 Pulse 84 Ht 5' 7 (1.702 m) Wt 227 lb 6.4 oz (103.1 kg) BMI 35.62 kg/m2 General: Patient alert, in NAD. HEENT: Pupils equal, sclera clear. Oropharynx normal. Neck: Supple, without thyromegaly or mass. CV: Regular rate and rhythm. No murmur. Resp: Clear to auscultation Abdomen: soft, non-tender, without masses or organomegaly Breasts: Normal appearance with no dimpling or contour changes, no nipple discharge bilateral, no masses or tenderness bilateral. Lymphatic: No neck, supraclavicular, axillary or groin lymphadenopathy. Lower Extremities: FROM, normal gait without edema, lesions, or deformity. Genitourinary: External genitalia: normal without lesions. Vagina: normal appearing vaginal epithelium. No discharge. No lesions. Cervix: No cervical motion tenderness, normal appearance. No discharge or lesions. Pap obtained. IUDstrings noted. Uterus: normal size, shape, consistency and nontender. Exam limited by patient habitus. Adenexa: normal size, nontender, no masses. Exam limited by patient habitus. Anus: normal, no hemorrhoids, Rectal: deferred. Bladder: Nontender, no palpable masses Urethra: Nontender, no discharge Skin: No lesions. Neuro: Motor & sensory function all intact. Psychiatric: Alert & oriented with normal affect and insight. Patient does not appear depressed or anxious. ASSESSMENT: Routine preventive exam Obese IUD check PLAN: Labs: Pap smear deferred until 2019. She will return to clinic fasting for health maintenance labs: cholesterol, glucose, thyroid secondary to obesity and patient's family history of thyroid disease inwomen. 100% condoms with all partners, STD prevention reviewed. BMI reviewed. Healthy diet and regular exercise advised. Wt loss advised. WW and increased exercise recommended. RTC 1 year, sooner with any concerns. Dictation disclaimer: Some notes are completed with voice-recognition dictation software. Typographical errors may result. Please contact me via [facility] staff message if you note any errors requiring clarification. N HULLER documented in this encounter Plan of Treatment Not on filedocumented as of this encounter Visit Diagnoses Diagnosis Well woman exam with routine gynecologic al exam - Primary Routine gynecological examination Family planning, IUD (intrauterine devic e) check/reinsertion/removal Surveillance of previously prescribed in trauterine contraceptive device Obesity, unspecified classification, uns pecified obesity type, unspecified whether serious comorbidity present ([facility]) Screening for lipoid disorders Screening for diabetes mellitus Screening for thyroid disorder documented in this encounter Care Teams Storekeeper Helper Relationship Specialty Start Date End Date Ana Mehta APRN, CABLE OPERATOR PCP - General 07/11/[id number] [place] [id number] documented as of this encounter
--- OUTSIDE RECORDS SUMMARY | 2021-11-01 11:29 | XMS_ITS | Encounter Summary ---
:1990 Author Organization [facility] Address [address] [place] [address] Care Team Providers Name Role Phone MehtaAna APRN, CNP Primary Care Provider [phone] Encounter Details Date Type Department Care Team Description 07/30/2016 Anesthesia Event [facility] PERIOPERATIVE S VCS Quoc Oliva MD [address] [facility] [address] [place], [place] [address] [place], [place] [phone] (Wo rk) Anesthesia Record Procedure Summary Procedure Name Responsible Anesthesia Start Anesthesia Stop Time Anesthesiologist Time Removal Foreign Quoc Oliva MD 07/30/16 0942 07/30/16 10 25 Body Left Foot (Left: Foot) Events Date Time Event Comment 07/30/2016 0935 IV plmt Radha valenzuela APRN, SERVICE COORDINATOR 0940 IV Plmt Comp IV was placed in Preop area by Radha valenzuela APRN, WYATT for administration o f IV fluids, IV antibiotics, and IV pre-op sedation. Patient was cont inuously monitored by Radha valenzuela APRN, WYATT during the placement. 0942 0942 An Start 0946 An Start Data 0947 An Oxygen Mask Spontaneous res pirations with adequate air exc hange. 0949 / Present 0951 Quick Note Block pause prio r to local injection 0953 An Local Anesthetic By Surgeon 1015 MD/DO Present 1019 an stop data 1025 An Stop Care transferred . 1025 Care Handoff Note I discussed wi th the receiving nurse and we: 1) Ident ified the patient, garsia family member(s) or patient surrogate 2) Identified th e responsible practitioner 3) Reviewed the pertinent medical history 4) Discussed the surgical/procedu re course 5) Reviewed intra-op anesthe kamlesh management and issues during an esthesia 6) Set expectations for the post-procedure period 7) Allowe d opportunity for questions and ac knowledgement of understanding of report Electronically signed by Aisha Bryant APRN, WYATT Name Total midazolam 2 mg/2 mL injection (aka VERSED) 4 mg FENTanyl injection (aka SUBLIMAZE) 50 mcg lidocaine 2% PF injection aka (XYLOCAINE) 60 mg propofol 10 mg/mL for procedural sedation (aka diPRIva n) 30 mg propofol 10 mg/mL (aka diPRIvan) 230.54 mg ceFAZolin (aka ANCEF) 2 g in dextrose 100 ml IVPB 2 g lactated ringers infusion 300 mL Agents Name O2 Blood No blood administrations on file. Lines, Drains, and Airways Type Details Placement Removal Peripheral IV Placement Date: 07/30/16 0000 by 07/30/16 1135 b y 07/30/16; Inserted Radha Mitchell, Boni Block RN by?: SERVICE COORDINATOR; Size WYATT SUBRAMANIAN (Gauge): 20 G; Orientation: Left; Site Prep: Alcohol; Local Anesthetic: Injectable, Lidocaine 1%, 0.5 ML intradermal; Insertion attempts: 1; Patient Tolerance: Tolerated well; Removal Date: 07/30/16; Removal Time: 1135; Removal Reason: Per Protocol; Catheter Tip: Intact Incision/Surgical Site 07/30/16; 1005; Foot; 07/30/16 1005 by 0930 by Jennifer, Left; 08/10/16; 929 Kay Olivera RN Discon tinue documented in this encounter Social History Tobacco [...] documented as of this encounter Miscellaneous Notes Anesthesia Postprocedure Evaluation - Quoc Oliva MD - 07/30/2016 11:04 AM CDT [facility] Anesthesia Post-op Note Patient: Destini Cano Post-Op Diagnosis: Foot pain Procedure Performed: Procedure(s): Removal Foreign Body Left Foot Anesthesia Type: MAC Post-op vital signs: BP 127/73 Pulse 82 Temp 98.5 ??F (36.9 ??C) (Oral) Resp 12 Ht 5' 7 Wt 99.8 kg (220 lb) LMP 07/27/2016 SpO2 100% BMI 34.46 kg/m2 Pain Score: Preferred Pain Scale: number (Numeric Rating Pain Scale) Pain Rating (0-10): Rest: 0 Post-op assessment: No anesthesia complication. Patient location: Phase 2 Airway Status: Patent Cardiovascular function: Satisfactory Hydration status: Satisfactory PONV: None Level of Consciousness: Awake Fully Participates Postop Assessment: Patient tolerated procedure well. Electronically signed by: Quoc Oliva MD 07/30/2016 11:04 AM Anesthesia Preprocedure Evaluation - Quoc Oliva MD - 07/30/2016 9:36 AM CDT [facility] Anesthesia Pre-op Evaluation Procedure: Procedure(s): Removal Foreign Body Left Foot HPI: 25 y.o. old female with Foot pain NPO Status: Last Fluid Intake Time: 0300 Last Fluid Intake Date: 07/30/16 Last Food Intake Date: 07/29/16 Allergies Allergen Reactions ??? Promethazine Syncope Past Medical History: Diagnosis Date ??? Abnormal Pap smear 09/2009 ASCUC+HRHPV ??? Anemia ??? Encounter for insertion of intrauterine contraceptive device 02/07/2015 ??? Immunization, other disease ??? Irregular menstrual cycle ??? Pap smear abnormality of cervix ??? Sinusitis ??? Urinary tract infection ??? Varicella Patient Active Problem List Diagnosis ??? Nasal polyps ??? Encounter for insertion of intrauterine contraceptive device ??? Retained foreign body of foot Past Surgical History: Procedure Laterality Date ??? FOOT SURGERY Left 07/30/2016 foreign body removal ??? NASAL POLYP SURGERY ??? NASAL/SINUS ENDOSCOPY 2004 Endonasal Sinus Surgery ??? PREMALIG/BENIGN SKIN LESION EXCISION Mole removal ??? WISDOM TEETH EXTRACTION Outpatient Prescriptions Marked as Taking for the 07/30/16 encounter (Hospital Encounter) Medication Sig Dispense Refill ??? cephalexin (KEFLEX) 250 MG capsule Take 1 Cap by mouth three times a day for 10 days. 30 Cap 0 Current Facility-Administered Medications Medication Dose Route Frequency ??? ceFAZolin (aka ANCEF) 2 g in dextrose 100 ml IVPB 2 g Intravenous Once ??? fentaNYL (SUBLIMAZE) injection 25-50 mcg 25-50 mcg Intravenous Q5MIN PRN ??? fentaNYL (SUBLIMAZE) injection 25-50 mcg 25-50 mcg Intravenous Once ??? HYDROmorphone injectable 0.2-0.4 mg 0.2-0.4 mg Intravenous Q10MIN PRN ??? lactated ringers infusion Intravenous Continuous ??? meperidine (DEMEROL) injection 12.5 mg 12.5 mg Intravenous Q5MIN PRN ??? midazolam (VERSED) injection 1-2 mg 1-2 mg Intravenous Once ??? morphine injectable 1-3 mg 1-3 mg Intravenous Q5MIN PRN ??? ondansetron (ZOFRAN) injection 4 mg 4 mg Intravenous Q4H PRN Labs: Lab Results Component Value Date/Time SODIUM 139 03/02/2008 03:33 PM K 3.9 03/02/2008 03:33 PM CHLORIDE 110 03/02/2008 03:33 PM BUN 8 09/16/2000 08:05 AM CREATININE 0.8 09/16/2000 08:05 AM GLUCOSE 96 01/05/2014 07:42 AM Lab Results Component Value Date/Time WBC 10.8 07/29/2016 07:01 PM HGB 14.7 07/29/2016 07:01 PM HCT 41.4 07/29/2016 07:01 PM PLTS 246 07/29/2016 07:01 PM INR (no units) Date Value 04/08/2004 1.0 No results found for: HCGQUANT Urine : Urine : Blood Bank: No results found for: ABORH, ABSCR EKG: No results found for this or any previous visit. Physical Exam: BP 138/74 Pulse 73 Temp 98.1 ??F (36.7 ??C) (Oral) Resp 16 Ht 5' 7 Wt 99.8 kg (220 lb) LMP 07/27/2016 SpO2 97% BMI 34.46 kg/m2 Assessment/Plan: Review of Systems Patient does not have GERD. Patient is not a smoker. The patient denies alcohol use. Patient denies any recent URI. History of PONV: No. History of motion sickness: No. Patient denies any personal or family history of anesthesia complications (PONV). Exam Mental Status: Alert and oriented. Mallampati score: I (One). Mouth opening: Normal Thyromental Distance: Normal Neck Extension: Full Neck Circumference > 40 cm?: No Current airway assessment:Normal Dentition: Normal. Cardiac Exam: Regular rate and rhythm. Respiratory Exam: Breath sounds clear to auscultation Assessment ASA Status: 1 . Plan Anesthesia type: MAC Induction: Maintenance: Postoperative pain management (PONV): Plan for postoperative opioid use PONV Risk Score Peds:0 PONV Risk Score Adult: 3 PONV Prophylaxis (planned):Ondansetron Anesthetic plan, risks, benefits and alternatives discussed with: Patient H&P Reviewed and Patient examined, no change observed IV access Antibiotics per surgery Electronically signed by: Quoc Oliva MD 07/30/2016 9:36 AM documented in this encounter Plan of Treatment Not on filedocumented as of this encounter Visit Diagnoses Not on filedocumented in this encounter Administered Medications Inactive Administered Medications - up to 3 most recent administrations Medication Order MAR Action Action Date Dose Rate Site ceFAZolin (aka ANCEF) 2 g in Given 07/30/2016 9:42 AM CDT 2 g dextrose 100 ml IVPB 2 g, Intravenous, Administer over 30 Minutes, ONCE, On Stephania 07/30/16 at 0930, For 1 dose, Infuse within 60 minutes prior to incision; Re-dose 1 gram IV every 4 hours after initial dose until incision closed., Pre-op fentaNYL (SUBLIMAZE) injection Given 07/30/2016 9:48 AM CDT 50 mcg Intravenous, Starting on Stephania 07/30/16 at 0948 lactated ringers infusion Started 07/30/2016 9:40 AM CDT Intravenous, at 30 mL/hr, CONTINUOUS, Starting on Stephania 07/30/16 at 0930, Pre-op lidocaine 2% PF (XYLOCAINE) injection Given 07/30/2016 9:49 AM CDT 60 mg Intravenous, Starting on Stephania 07/30/16 at 0949, Until Stephania 07/30/16 at 1025 midazolam (aka VERSED) injection Given 07/30/2016 9:48 AM CDT 2 mg Intravenous, Starting on Stephania 07/30/16 at 0942 Given 07/30/2016 9:42 AM CDT 2 mg propofol (aka diPRIvan) injection Given 07/30/2016 9:49 AM CDT 30 mg Intravenous, Starting on Stephania 07/30/16 at 0949 propofol (aka diPRIvan) Rate/Dose 07/30/2016 9:59 60 mcg/kg/min 35.9 3 injection Change AM CDT mL/hr Intravenous, Starting on Stephania 07/30/16 at 0949 Started 07/30/2016 9:49 AM CDT 75 mcg/kg/min 44.91 mL/hr documented in this encounter Care Teams Wrapping Checker Relationship Specialty Start Date End Date Ana Mehta, PHOTOGRAPH FINISHER, SEWING MACHINE REPAIRER HELPER PCP - General 07/11/13 [address] [place] [id number] documented as of this encounter
--- OUTSIDE RECORDS SUMMARY | 2021-11-01 11:29 | XMS_ITS | Clinical Summary ---
:1990 Author Organization [facility] Address [address] [place] [address] Care Team Providers Name Role Phone Ana Mehta APRN, CNP Primary Care Provider [phone] Source Comments You are receiving this document as you are listed as the primary care provider,follow-up provider, or the patient has been referred to you for consultation.This is in compliance with the Medicare and Medicaid EHR Incentive Program,which states Providers who transition their patient to another setting of careor provider of care or refers their patient to another provider of care shouldprovide summarycare record for each transition of care or referral. Rotapanel Allergies Active Allergy Reactions Severity Noted Date Comments Promethazine Syncope 05/17/2007 Medications Medication Sig Dispensed Refills Start Date End Date Status fluticasone (AKA Place 2 sprays into 48 g 3 02/13/2015 Active FLONASE) 50 MCG/ACT each nostril daily nasal solution (every 24 hours). Dose is for each nostril. ALBUterol sulfate HFA Inhale 1-2 Puffs 18 g 0 12/01/2016 Active 108 (90 BASE) MCG/ACT every 4 hours as inhaler needed for Shortness of Breath. zolpidem (AMBIEN) 5 Take 1 Tablet by 1 Tablet 0 05/30/2018 Active MG tablet mouth at bedtime as needed. For the night of the study if needed. fluticasone INSTILL 2 SPRAYS 48 g 0 12/18/2018 Active propionate (FLONASE) INTO EACH NOSTRIL 50 MCG/ACT nasal EVERY DAY solutionIndications: Allergic rhinitis, unspecified seasonality, unspecified trigger Active Problems Problem Noted Date Retained foreign body of foot 07/27/2016 Encounter for insertion of intrauterine contraceptive device 02/07/2015 Nasal polyps 01/05/2014 Resolved Problems Problem Noted Date Resolved Date Contraceptive management 05/11/2009 02/07/2015 Overview: LW Onset: 2007 ; Contraceptive Management NOS Varicella 04/08/2004 06/08/2004 Overview: LW Onset: childhood ; Varicella Zoster Immunizations Name Administration Dates Next Due 4vHPV (Gardasil) 11/18/2007, 07/27/2007, 05/17/2007 DTP 08/28/1994, 05/16/1991, 02/17/1990, 1989, 1989 Flu Vac Preserv Free (3+yrs) 02/21/2010 HepB Adult (Engerix-B, 20+ yrs, 3 09/21/1995, 04/02/1995, dose series) Hib (ActHIB) 11/07/1990, 06/06/1990, 02/17/1990 MMR 12/17/1999, 11/07/1990 OPV, Trivalent (Orimune or tOPV) 08/28/1994, 05/16/1991, 04/1990, 1989, 1989 TDAP (BOOSTRIX) 10/15/2011 Td 10/06/2001 Family History Medical History Relation Name Comments High Cholesterol Father High Cholesterol Mother Liver Disease Mother Thyroid Disorder Mother Hypertension Brother Diabetes Maternal Grandfather High Cholesterol Maternal Grandfather Thyroid Disorder Maternal Grandfather Asthma Maternal Grandmother Depression Maternal Grandmother Thyroid Disorder Maternal Grandmother Cancer Paternal Grandfather Thyroid Disorder Paternal Grandmother Relation Name Status Comments Father Alive Mother Alive Brother Alive Maternal Grandfather Alive Maternal Grandmother Alive Paternal Grandfather Paternal Grandmother Sister 1 Alive Sister 2 Alive Social History Tobacco Use Types Packs/Day Years [...] Comments Blood Pressure 129/86 03/11/2020 2:34 PM OPEN SOAPER TENDER Pulse 86 03/11/2020 2:34 PM OPEN SOAPER TENDER Temperature 36.9 ??C (98.5 ??F) 01/11/2017 11:22 AM OPEN SOAPER TENDER Respiratory Rate 20 01/11/2017 11:22 AM OPEN SOAPER TENDER Oxygen Saturation 100% 08/30/2018 9:27 AM CDT Inhaled Oxygen Concentration - - Weight 115.6 kg (254 lb 12.8 oz) 03/11/2020 2:34 PM OPEN SOAPER TENDER Height 170.2 cm (5' 7.01) 08/30/2018 9:27 AM CDT Body Mass Index 39.9 08/30/2018 9:27 AM CDT Plan of Treatment Health Maintenance Due Date Last Done Comments Hep C Screening (Preventive 1989 Services) COVID-19 Vaccine (#1) 02/03/1990 HIV Screening (Preventive 2005 Services) Pap 01/20/2019 01/21/2016, 11/10/2012, 11/10/2012 (Completed), Additional history exists Adult Preventive Visit 01/27/2019 01/27/2017, 01/21/2016 DTaP/Tdap/Td (7 - Tdap) 10/14/2021 10/15/2011, 10/06/2001, 08/28/1994, Additional history exists Influenza (#1) 2021 02/21/2010 Zoster/Shingles (1 of 2) 08/05/2039 Hib Completed 11/07/1990, 06/06/1990, 02/17/1990 IPV (Polio) Completed 08/28/1994, 05/16/1991, 02/17/1990, Additional history exists HepB Completed 09/21/1995, 04/02/1995, 08/28/1994 HPV Vaccine Completed 03/27/2020, 11/18/2007, 11/18/2007, Additional history exists HepA Aged Out No longer eligib le based on patient 's age to complete this topic MCV4 Aged Out No longer eligib le based on patient 's age to complete this topic Pneumococcal Aged Out No longer eligib le based on patient 's age to complete this topic Insurance Payer Benefit Plan / Subscriber ID Effective Dates Phone Addre ss Type Group [facility] [id number] 2020-Present Commercial INSURED [id number] (Home) [place], [place] [address] Destini Castelan Personal/Famil Self 1990 [phone] (Home) [place] [address] Alejandro Cano Personal/Famil Self 11/12/1962 [id number] [phone] (Home) [facility] [phone] [place] 2 (Work) [id number] Advance Directives Latest Code Status on File Code Status Date Activated Date Inactivated Comments Full Code 07/30/2016 9:40 AM 07/30/2016 2:00 PM Care Teams Supervisor Beam Department Relationship Specialty Start Date End Date Ana Mehta APRN, TRAM DRIVER PCP - General 07/11/13 [address] [place] [id number]
--- OUTSIDE RECORDS SUMMARY | 2021-11-01 11:29 | XMS_ITS | Encounter Summary ---
:1990 Author Organization [employer] Address [address] [place] [address] Care Team Providers Name Role Phone Ana Mehta APRN, AVIVA Primary Care Provider [phone] Encounter Details Date Type Department Care Team Description 03/04/2017 aditya Vines [phone] Social History Tobacco Use Types Packs/Day Years [...] documented as of this encounter Progress Notes FAMILY MEDICINEADITYA PROVIDER - 03/04/2017 12:00 AM CST aditya Treatment Plan Diagnosis Viral Upper Respiratory Infection Visit Date March 04, 2017 Destini Cano Date of : 88 Provider Carol Bassett, Nurse Practitoner Note From Provider Good morning Destini. I am sorry to read you are not feeling well. Based on your symptoms, I do not think you have influenza. Influenza comes with a fever and harsh cough. Please read your treatment plancarefully. Increase fluids, rest, Mucinex and Ibuprofen. Many viral cold can last 7-10 days, with days 2-4 being the worst with congestion and headache. If you are not feeling better in 3 days, please request a call back. Take care!Carol Bassett CNP Treatment Plan Let???s get you feeling better in the next 24 hours by using a special blend of abhs-gsa-mdvfmnp products to reduce your pain and other common VURI symptoms such as inflammation, fever, and cough wherever you are in you VURI progression. Because this infection is viral, an antibiotic won???t be effective at soothing your symptoms or treating the virus. If your symptoms don't improve after 3 days, or if you have questions, please use the Request a Call Back button and we'll adjust your treatment for free. Order(s) None Treatment Plan Self Care Tip Topics Symptom Relief with Ibuprofen and an Expectorant Steam Therapy Humidify What to Expect Your symptoms are often related to how far along you are with your viral upper respiratory infection. Early on you may have fever, fatigue or a sore throat. Symptoms can progress to nasal congestion with sinus pain and pressure, which often turns into a wet, productive cough. The tail end of a VURI typically includes a dry cough which may last 2-3 weeks after the other symptoms have passed. If you follow the recommendations I made on the Treatment tab, your current symptoms should improve within 3 days. As your symptoms evolve, follow the suggestions in your treatment plan to feel more like yourself. A typical VURI may take as long as 2-3 weeks to clear up fully.If your symptoms don???t improve after 3 days, if you have questions, or if you have the symptoms below, please use the Request a Call Back button and we???ll adjust your treatment for free. What to Watch Out For Give us a call immediately if you experience: ??? Shortness of breath ??? Wheezing ??? Difficulty swallowing ??? High fevers ??? Worsening cough ??? Worsening or persistent sore throat ??? Presence of white or yellow spots on your tonsils ??? Presence of red spots on the roof of your mouth or back of your throat ??? Tender, swollen glands along with swollen tonsils ??? Abdominal pain, nausea or vomiting ??? Rash on your trunk or arms My Conditions, Orders, Allergies as of March 04, 2017 Standard condition list None Current orders None Allergies promethazine (promethazine), rect [facility] Information [facility] We are an online clinic open 07/09. If you have any questions or comments about this visit, please call or email [email or web address]. INSPECTOR documented in this encounter Plan of Treatment Not on filedocumented as of this encounter Visit Diagnoses Not on filedocumented in this encounter Care Teams Truck Driver Helper Relationship Specialty Start Date End Date Ana Mehta, BENZENE WASHER OPERATOR, FOREST FIRE LOOKOUT PCP - General 07/11/13 [id number] [address] [place] Simpson [id number] documented as of this encounter
--- OUTSIDE RECORDS SUMMARY | 2021-11-01 11:29 | XMS_ITS | Encounter Summary ---
:1990 Author Organization [employer] Address [address] [place] [address] Care Team Providers Name Role Phone Ana Mehta APRN, CNP Primary Care Provider [phone] Reason for Visit Reason Comments Follow-up hst 07/26/18 Encounter Details Date Type Department Care Team Description 08/30/2018 Office Visit [facility] Nela Desouza, BERTHA (obstructive sleep apnea) (Primary Dx); Medicine AVIVA SUBRAMANIAN Periodic limb movement disorder; [address] [facility] Hypersomnia; [place] [address] S Sleep paralysis [phone] [place] [address] (Wo rk) Social History Tobacco Use Types [...] Sign Reading Time Taken Comments Blood Pressure 117/83 08/30/2018 9:27 AM CDT Pulse 83 08/30/2018 9:27 AM CDT Temperature - - Respiratory Rate - - Oxygen Saturation 100% 08/30/2018 9:27 AM CDT Inhaled Oxygen Concentration - - Weight 107.8 kg (237 lb 9.6 oz) 08/30/2018 9:27 AM CDT Height 170.2 cm (5' 7.01) 08/30/2018 9:27 AM CDT Body Mass Index 37.2 08/30/2018 9:27 AM CDT documented in this encounter Patient Instructions Patient InstructionsNela Desouza APRN, CNP - 08/30/2018 9:30 AM CDT We will order an in-lab sleep study followed by a nap test if needed. I will call you with the results of the study. If you do have sleep apnea, which I suspect, we can send orders for CPAP to [facility] for you. Follow up would be 3 months after you get the CPAP. documented in this encounter Progress Notes Nela Desouza APRN, CNP - 08/30/2018 9:30 AM CDT CHIEF COMPLAINT: Obstructive Sleep Apnea. Subjective: Destini Castelan is a 28 y.o. female who returns to discuss the results of her recent sleep study. Please refer to Dr. Chapman's consultation note for details specific to initial complaints. She has frequent arousals, hypersomnia, nocturnal limb movements. INTERVAL MEDICAL HISTORY: reviewed PHYSICAL EXAM: BP 117/83 (BP Location: Right Arm) Comment (BP Cuff Size): 13-17 in Pulse 83 Ht 5' 7.01 (1.702 m) Wt 237 lb 9.6 oz (107.8 kg) SpO2 100% BMI 37.20 kg/m?? HST RESULTS personally reviewed in detail with the patient: DATE: 08/02/18 Sleep Efficiency: 7 hrs JOHNATHON: 3 ZOE: 3 02 vladimir: 79% Supine AHI: 5/hr Snoring: Mild IMPRESSION AND PLAN: 1. Sleep disturbance. Very suspicious HST was non-diagnostic given her hypersomnia, snoring, let movements. Will obtain PSG with MSLT PRN to evaluate further. She will be called with results of the study. If AHI >/= 5, would send order for APAP 5-15cm H2O and MSLT can be cancelled. Follow up 3 months after obtaining CPAP for download. All of the patient's questions were answered. She states understanding and agreement with my assessment and plan as above. Total time 25 minutes, more than half spent in face to face counseling and coordination of care. documented in this encounter Plan of Treatment Not on filedocumented as of this encounter Visit Diagnoses Diagnosis BERTHA (obstructive sleep apnea) - Primary Obstructive sleep apnea (adult) (pediatr ic) Periodic limb movement disorder Hypersomnia Hypersomnia, unspecified Sleep paralysis Sleep related movement disorder, unspeci fied documented in this encounter Care Teams Shore Working Supervisor Relationship Specialty Start Date End Date Ana Mehta APRN, CONTINUITY DIRECTOR PCP - General 07/11/13 [id number] [place] [id number] documented as of this encounter
--- OUTSIDE RECORDS SUMMARY | 2021-11-01 11:29 | XMS_ITS | Encounter Summary ---
:1990 Author Organization [employer] Address [address] [place] [address] Care Team Providers Name Role Phone Ana Mehta APRN, GAMING SURVEILLANCE OBSERVER Primary Care Provider [phone] Reason for Visit Reason Comments Post-Op Check Removal of foreign body L fo ot Encounter Details Date Type Department Care Team Description 08/05/2016 Office Visit [facility] Nurse, Tria H/O retained foreign [address] [facility] Ump [place] body fully removed [place], [place] [address] (Primary Dx) [phone] Social History Tobacco Use Types Packs/Day Years [...] on file documented as of this encounter Patient Instructions Patient InstructionsSarah Canseco RN - 08/05/2016 9:30 AM CDT 1. Keep dressings clean and dry. Germs may enter through wet dressings. Do not take a tub bath, sit in a hot tub or swim until your doctor says it is okay (typically 4 weeks postop). 2. Ice your foot to control swelling and pain. Place a clean, dry towel over your foot before you place the ice pack. 3. Elevate your foot above the level of your heart while you rest. Put a pillow or cushion under thelower end of your calf, just above your ankle. Do not put the pillow or cushion under your knee. 4. Pain medication can cause constipation. Eat fiber (fruits and vegetables) and drink plenty of fluids. 5. If you have any of these problems, call [facility] Nurses: ?? Fever of 101 or higher ?? Chills ?? Foul odor ?? Cloudy drainage from your wound ?? Increased redness, warmth, or swelling at the wound site ?? Increased pain ?? Symptoms of deep vein thrombosis (DVT) such as swelling, redness, warmth, or pain in your calf 6. If given, do your exercises to prevent muscle weakness, improve circulation, and rebuild strengthand flexibility. 7. If you experience any discomfort in your cast, please let us know by calling the number below. Your cast may feel too loose, too tight, like it's rubbing, nickolas, or wet. None of this is normal, and we need to be aware. [facility] Nurses [phone] Wednesday-Wednesday 8:00AM-5:00PM documented in this encounter Progress Notes Sarah Canseco RN - 08/05/2016 9:30 AM CDT Pt is status post Removal of foreign body L foot on 07/30/[address] Jacob. Pt presents today for wound check. Pt ambulates with normal gait, no cam boot, fullweightbearing. Pt states she is not in any pain. One small poke hole noted, no redness, swelling, or drainage. Foot washed. Bandaid replaced. Pt does not have any postop appointments required, she will call if any issues or concerns arise andwe will schedule if needed. AVS was given to the patient, noting my phone number, encouraged to call with any questions or concerns. documented in this encounter Plan of Treatment Not on filedocumented as of this encounter Visit Diagnoses Diagnosis H/O retained foreign body fully removed - Primary Personal history of retained foreign bod y fully removed documented in this encounter Care Teams Vessel Specialist Relationship Specialty Start Date End Date Ana Mehta APRN, GAMING SURVEILLANCE OBSERVER PCP - General 07/11/13 [id number] [place] [id number] documented as of this encounter
--- OUTSIDE RECORDS SUMMARY | 2021-11-01 11:29 | XMS_ITS | Encounter Summary ---
:1990 Author Organization [employer] Address [address] [place] [address] Care Team Providers Name Role Phone Mehta, Ana Beverly SUBRAMANIAN, AVIVA Primary Care Provider Reason for Visit Reason Comments Cough Encounter Details Date Type Department Care Team Description 12/01/2016 Hospital Encounter [facility] Qasim Hodges Vir pastora URI; Care M, PAYumi Acute right-sided thoracic back pain [address] [place] [address] [facility] [phone] [place] [address] Social History Tobacco Use Types Packs/Day Years [...] Sign Reading Time Taken Comments Blood Pressure 136/90 12/01/2016 10:36 AM CDT Pulse 80 12/01/2016 10:36 AM CDT Temperature 36.6 ??C (97.9 ??F) 12/01/2016 10:36 AM CDT Respiratory Rate 20 12/01/2016 10:36 AM CDT Oxygen Saturation 98% 12/01/2016 10:36 AM CDT Inhaled Oxygen Concentration - - Weight - - Height - - Body Mass Index - - documented in this encounter Medications at Time of Discharge Medication Sig Dispensed Refills Start Date End Date ALBUterol sulfate HFA Inhale 1-2 Puffs 18 g 0 12/02/19 17 108 (90 BASE) MCG/ACT every 4 hours as inhaler needed for Shortness of Breath. amoxicillin-clavulanate Take 1 Tab by mouth 14 Tab 0 12/08/2016 (AUGMENTIN) 875-125 mg two times a day for 7 per tablet days. levonorgestrel (AKA 1 each by 1 each 0 02/07/201503/11 MIRENA) 20 MCG/24HR Intrauterine route IUDIndications: See Admin Encounter for insertion Instructions. To be of intrauterine administered once contraceptive device every 5 years in clinic office. documented as of this encounter ED Notes Qasim Hodges PA-C - 12/01/2016 10:57 AM CDT NAME: DESTINI TORREZ MR#: [id number] CSN: [id number] AUTHENTICATING CLINICIAN: Qasim Hodges PA-C CONFIRM #: [id number] LOC: 520 URGENT CARE PROGRESS NOTE DATE OF VISIT: 12/01/2016 : 1990 S: This is a 26-year-old female, who presents with URI symptoms and back pain. Patient states that she has had a cold for 5 days: some sinus congestion, pressure, with greenish blood-tinged nasal drainage, and some posterior nasal drainage causing a cough. She has also had some tightness in the bronchialtubes, a little bit of wheezing and some spasms of coughing. No fever. Sore throat but not significant. No ear pain. She woke up with some right-sided thoracic back pain today she rates as mild to moderate. She has not done anything to treat it, but it hurts to twist and turn. Hurts to take a deep breath and expand her rib cage, but she does not feel short of breath with it. There are no signs of resp iratory distress. No recent trauma to that area. She does have a history of sinus issues. She has been taking Mucinex and Flonase to treat her symptoms. COMPLETE REVIEW OF SYSTEMS: Otherwise negative except for noted above. PAST MEDICAL HISTORY: All updated and reviewed by me in [facility]. SURGICAL HISTORY: All updated and reviewed by me in [facility]. SOCIAL HISTORY: All updated and reviewed by me in [facility]. ALLERGIES: All updated and reviewed by me in [facility]. MEDICATIONS: All updated and reviewed by me in [facility]. PHYSICAL EXAM: VITAL SIGNS: All updated and reviewed by me in [facility]. Well-developed, well-nourished female, no apparent distress. SKIN: Warm and dry. Ears: Fluid but no infection. Sinuses somewhat tender in the maxillary region. Eyes: Sclerae are anicteric. Conjunctivae are not injected. Oral mucosa is shows evidence of PND but otherwise is normal. NECK: Supple without adenopathy or thyromegaly. LUNGS: Clear throughout. HEART: Regular rate and rhythm. BACK: Nontender to palpation over the spine, but the right paraspinals are tight in the mid thoracicback. It feels as if there is a rib or two that are subluxed. With the patient's permission, I manipulated that area. Afterwards, it was less tender to palpation,and she was able to move and turn easier with less pain. ASSESSMENT: 1.Viral upper respiratory infection. 2.Acute thoracic right-sided back pain. PLAN: For the back, we talked about ice and stretching and ibuprofen. For the URI, I put her on an albuterol inhaler for the wheezing and bronchoconstriction. Talked about appropriate oaqe-pzx-bojisiv treatments. I gave her a prescription for Augmentin to fill if she develops signs of a true bacterial sinusinfection. I told her what to watch for. If she develops new or worsening symptoms or other problems, she should be reevaluated. The patient was agreeable to this plan, left in stable condition. MAG:FIOR C: CONFIRM #: [id number] documented in this encounter Plan of Treatment Not on filedocumented as of this encounter Visit Diagnoses Diagnosis Viral URI Acute upper respiratory infections of un specified site Acute right-sided thoracic back pain (HR C) Triage Assessment Note - Trinidad Washburn RN - 12/01/2016 10:34 AM CDT Wednesday started feeling like she was getting a cold. Than having lots of sinus congestion, productive cough with a little blood noted. Having SOB and back pain. Wheezing documented in this encounter Care Teams General Maintenance Helper Relationship Specialty Start Date End Date nAa Mehta, RESOURCE ANALYST, CHIP MACHINE OPERATOR PCP - General 07/11/13 [address] [place] [place] [id number] documented as of this encounter
--- OUTSIDE RECORDS SUMMARY | 2021-11-01 11:29 | XMS_ITS | Encounter Summary ---
:1990 Author Organization [place] Address [address] [facility] [place] [address] Care Team Providers Name Role Phone Oswaldo Wiggins Primary Care Provider [phone] Reason for Visit Reason Comments Palpitations Encounter Details Date Type Department Care Team Description 01/03/2018 Emergency [facility] Elisa Rosasitat ions; [facility] Emergency Dep t MD Kelly Chest pain, unspecified type [address] [facility] [place] [id number] [id number] [facility] [address] [facility] [address] [address] [place] [address] (Wo rk) Social History Tobacco Use Types [...] Comments Blood Pressure 132/73 01/03/2018 12:30 PM WAREHOUSE MANAGER Pulse 84 01/03/2018 10:51 AM WAREHOUSE MANAGER Temperature 36.6 ??C (97.9 ??F) 01/03/2018 10:51 AM WAREHOUSE MANAGER Respiratory Rate 10 01/03/2018 12:30 PM WAREHOUSE MANAGER Oxygen Saturation 100% 01/03/2018 12:30 PM WAREHOUSE MANAGER Inhaled Oxygen Concentration - - Weight - - Height - - Body Mass Index - - documented in this encounter Discharge Instructions Discharge InstructionsElisa Rosas MD - 01/03/2018 1:12 PM WAREHOUSE MANAGER Discharge Instructions Palpitations Palpitations are an unusual awareness of your heartbeat. People often describe this as the heart skipping, fluttering, racing, irregular, or pounding. At this time, your provider has found no signs that your palpitations are due to a serious or life-threatening condition. However, sometimes there is aserious problem that does not show up right away. Palpitations can be caused by caffeine, cigarettes, diet pills, energy drinks or supplements, other stimulants, and medications and street drugs. They can also be caused by anxiety, hormone conditions such as high thyroid, and other medical conditions. Sometimes they are a sign of abnormal rhythm in the heart. At this time, your provider did not find any dangerous cause of your symptoms. Generally, every Emergency Department visit should have a follow-up clinic visit with either a primary or a specialty clinic/provider. Please follow-up as instructed by your emergency provider today. Return to the Emergency Department if: ??? You get chest pain or tightness. ??? You are short of breath. ??? You get very weak or tired. ??? You pass out or faint. ??? Your heart rate is over 120 beats per minute for more than 10 minutes while you are resting. ??? You have anything else that worries you. What can I do to help myself? Fill any prescriptions the provider gave you and take them right away. ??? Follow your provider???s instructions about the prescription medicines you are on. Sometimes theprovider may tell you to stop taking a medicine or change the dose. ??? If you smoke, this may be a good time to quit! The less you can smoke, the better. ??? Do not use energy drinks, diet pills, or stimulants. Limit your use of caffeine. If you were given a prescription for medicine here today, be sure to read all of the information (including the package insert) that comes with your prescription. This will include important information about the medicine, its side effects, and any warnings that you need to know about. The pharmacist who fills the prescription can provide more information and answer questions you may have about the medicine. If you have questions or concerns that the pharmacist cannot address, please call or return to the Emergency Department. Remember that you can always come back to the Emergency Department if you are not able to see your regular provider in the amount of time listed above, if you get any new symptoms, or if there is anything that worries you. Discharge Instructions Chest Pain You have been seen today for chest pain or discomfort. At this time, your provider has found no signs that your chest pain is due to a serious or life- threatening condition, (or you have declined more testing and/or admission to the hospital). However, sometimes there is a serious problem that does not show up right away. Your evaluation today may not be complete and you may need further testing and evaluation. Generally, every Emergency Department visit should have a follow-up clinic visit with either a primary or a specialty clinic/provider. Please follow-up as instructed by your emergency provider today. Return to the Emergency Department if: ??? Your chest pain changes, gets worse, starts to happen more often, or comes with less activity. ??? You are newly short of breath. ??? You get very weak or tired. ??? You pass out or faint. ??? You have any new symptoms, like fever, cough, numb legs, or you cough up blood. ??? You have anything else that worries you. Until you follow-up with your regular provider, please do the following: ??? Take one aspirin daily unless you have an allergy or are told not to by your provider. ??? If a stress test appointment has been made, go to the appointment. ??? If you have questions, contact your regular provider. ??? Follow-up with your regular provider/clinic as directed; this is very important. If you were given a prescription for medicine here today, be sure to read all of the information (including the package insert) that comes with your prescription. This will include important information about the medicine, its side effects, and any warnings that you need to know about. The pharmacist who fills the prescription can provide more information and answer questions you may have about the medicine. If you have questions or concerns that the pharmacist cannot address, please call or return to the Emergency Department. Remember that you can always come back to the Emergency Department if you are not able to see your regular provider in the amount of time listed above, if you get any new symptoms, or if there is anything that worries you. HOUSE MANAGER documented in this encounter ED Notes Sharon Morris RN - 01/03/2018 10:50 AM CST Presents to the ED with palpitations. has been having palpitations intermittently for the past few months and has been in the process of being worked up for this. Recently had stress echo and zio patch but has not heard any results from these tests. [facility] palpitations are worse today than usual. HOUSE MANAGER Elisa Rosas MD - 01/03/2018 10:36 AM CST History Chief Complaint: Palpitations HPI Destini Castelan is a 27 year old female who presents to the emergency department for evaluation of palpitations. She reports that she has undergone both a Stress ECHO and Ziopatch monitoring in the lastmonth for previous episodes of palpitations. However, she has yet to follow up with a general assembler, as they are still awaiting the results of the Ziopatch. This morning, she reports one of these palpitation episodes woke her up and has continued to persist all morning to the point where she felt nauseous and short of breath with associated sharp chest pains. As she has never experienced an episode tothis extent before, she decided to present to the ED for evaluation. Here, she denies any other sympt oms, including syncope, dizziness, lightheadedness, joint swelling, abdominal pain, diarrhea, rashes, fever, or recent infections. She denies any recent stimulant use that could have brought on palpitations, nor is she dehydrated. She denies increased life stress. She has no history of blood transfusions for her anemia. Her period has been normal, and she denies any chance of . Of note, she was in seen in the ED for chest pain last year, but reports that today's episode is different from that one. Cardiac/PE/DVT Risk Factors: The patient has no history of hypertension, hyperlipidemia, diabetes, or smoking. She reports a family history of thyroid disease. The patient denies any personal or familial history of PE, DVT, or clotting disorder. The patient reports no recent travel, surgery, or other immobilizations. She denies any hormone therapy use, nor leg swelling. From 12/13/2017 - Stress Echocardiogram: CONCLUSION: 1. Normal bicycle stress echocardiogram with adequate heart rate and workload. 2. No evidence for inducible ischemia. 3. Risk stratification is low risk based on normal stress Echocardiogram, as per cardiology. Allergies: Promethazine Medications: The patient is currently on no regular medications. Past Medical History: Anemia Past Surgical History: Mole removal Family History: Thyroid disease Social History: Presents with . Negative for tobacco use. Social alcohol use. Drinks beer on the weekend. Denies regular alcohol use/binge drinking Review of Systems Constitutional: Negative for fever. Respiratory: Positive for shortness of breath. Cardiovascular: Positive for chest pain and palpitations. Negative for leg swelling. Gastrointestinal: Positive for nausea. Negative for abdominal pain, diarrhea and vomiting. Musculoskeletal: Negative for joint swelling. Skin: Negative for rash. Neurological: Negative for dizziness, syncope, weakness, light-headedness, numbness and headaches. All other systems reviewed and are negative. Physical Exam Patient Vitals for the past 24 hrs: BP Temp Pulse Heart Rate Resp SpO2 01/03/18 1230 132/73 - - 72 10 100 % 01/03/18 1200 135/90 - - 78 21 97 % 01/03/18 1136 (!) 135/96 - - 83 23 97 % 01/03/18 1051 (!) 165/116 97.9 ??F (36.6 ??C) 84 - 18 100 % Physical Exam General: Adult female sitting upright Eyes: PERRL, Conjunctive within normal limits ENT: Moist mucous membranes, oropharynx clear. Neck: No palpable thyromegaly CV: Normal S1S2, no murmur, rub or gallop. Regular rate and rhythm Resp: Clear to auscultation bilaterally, no wheezes, rales or rhonchi. Normal respiratory effort. GI: Abdomen is soft, nontender and nondistended. No palpable masses. No rebound or guarding. MSK: No edema. Nontender. Normal active range of motion. No calf asymmetry or tenderness to palpation. Skin: Warm and dry. No rashes or lesions or ecchymoses on visible skin. Neuro: Alert and oriented. Responds appropriately to all questions and commands. No focal findings appreciated. Normal muscle tone. Psych: Normal mood and affect. Pleasant. Emergency Department Course ECG: Indication: Palpitations Time: 1044 Vent. Rate 89 bpm. ME interval 152. QRS duration 92. QT/QTc 370/450. P-R-T axis -21 42 37. Sinu rhythm with occasional premature ventricular complexes. Incomplete right BBB. Cannot rule out anterior infarct, age undetermined. Abnormal ECG. No significant change compared to EKG dated 01/11/17. Read time: 1313. Laboratory: CBC: WBC: 8.8, HGB: 14.5, PLT: 268 BMP: All WNL (Creatinine: 0.76) Magnesium: 2.2 1141 Troponin: <0.015 Emergency Department Course: Nursing notes and vitals reviewed. (1129) I performed an exam of the patient as documented above. ?? IV inserted. Blood drawn. This was sent to the lab for further testing, results above. ?? EKG obtained in the ED, see results above. ?? (1300) I rechecked the patient and discussed the results of her workup thus far. She denies any new concerns. ?? Findings and plan explained to the Patient. Patient discharged home with instructions regarding supportive care, medications, and reasons to return. The importance of close follow-up was reviewed. The patient was prescribed no medications. ?? I personally reviewed the laboratory results with the Patient and answered all related questions prior to discharge. Impression & Plan Medical Decision Making: Destini Castelan is a 27 year old female with a history of chronic intermiteent palpitations who presents to the emergency department with slight worsening. She associates these with chest pains, and hashad those today for many hours. There is no signs of acute ischemia or injury when compared to previous EKGs on today's EKGs, and she has no significant laboratory abnormalities. Thyroid studies were performed as an outpatient in 12/02 and were normal. She occasionally has PVCs mostly with exertion here in the emergency department, but no evidence that would suggest an acute life threatening process.She has already had a stress echocardiogram which was reviewed and normal, and a zio patch which sheis waiting on results. She is appropriate for outpatient follow up. At this time, there is no indication for further emergent evaluation is necessary. She should follow up with her PCP within 2 days and consider outpatient cardiology/electrophysiology evaluation if her symptoms persist. Recommended sto pping any stimulants including caffeine and binge drinking of alcohol. Drink plenty of fluids and rest. All questions were answered prior to discharge. Diagnosis: ICD-10-CM 1. Palpitations R00.2 2. Chest pain, unspecified type R07.9 Disposition: discharged to home Scribe Disclosure: Valerie Anand, am serving as a scribe on 01/03/2018 at 11:29 AM to personally document services performed by Elisa Rosas MD based on my observations and the provider's statements to me. Valerie Vero 01/03/2018 [facility] EMERGENCY DEPARTMENT Elisa Rosas MD 01/06/18 0801 HOUSE MANAGER documented in this encounter Plan of Treatment Not on filedocumented as of this encounter Procedures Procedure Name Priority Date/Time Associated Comments Diagnosis CBC WITH PLATELETS & STAT 01/03/2018 11:41 Res ults for this DIFFERENTIAL AM WAREHOUSE MANAGER procedure are i n the results section. TROPONIN I Routine 01/03/2018 11:41 Results for this AM WAREHOUSE MANAGER procedure are i n the results section. MAGNESIUM STAT 01/03/2018 11:41 Results for this AM WAREHOUSE MANAGER procedure are i n the results section. BASIC METABOLIC PANEL STAT 01/03/2018 11:41 Re sults for this AM WAREHOUSE MANAGER procedure are i n the results section. EKG 12-LEAD, TRACING STAT 01/03/2018 10:44 Res ults for this ONLY AM WAREHOUSE MANAGER procedure are i n the results section. documented in this encounter Results Troponin I (01/03/2018 11:41 AM WAREHOUSE MANAGER) P athologist Signature Troponin I ES <0.015 0.000 - 01/03/2018 [place] 0.045 ug/L 12:36 PM [facility] Comment: The 99th percentile for upper reference range is 0.045 ug/L. ??Troponin values in the range of 0.045 - 0.120 ug/L may b e associated with risks of adverse clinical events. Specimen Anatomical Collection Method Collection Time Receive d Time (Source) Location / / Volume Laterality 01/03/2018 11:41 01/03/2018 AM WAREHOUSE MANAGER 11:42 AM WAREHOUSE MANAGER Elisa Rosas MD LAB - BLOOD ORDERABLES Performing Organization Address City/Special Care Hospital/ZIP [facility] Phon e Number M [facility] [address], [place] [address] [facility] [address] [place], [place] [address], [facility] [phone] Magnesium (01/03/2018 11:41 AM WAREHOUSE MANAGER) P athologist Signature Magnesium 2.2 1.6 - 2.3 01/03/2018 [facility] mg/dL 12:36 PM [facility] Specimen Anatomical Collection Method Collection Time Receive d Time (Source) Location / / Volume Laterality Blood specimen 01/03/2018 11:41 8 (specimen) AM WAREHOUSE MANAGER 11:42 AM WAREHOUSE MANAGER Elisa Rosas MD LAB - BLOOD ORDERABLES Performing Organization Address City/Special Care Hospital/[facility] Phon e Number M [facility] [address], [place] [address] [facility] [address] [place], [place] [address], [facility] [phone] Basic metabolic panel (01/03/2018 11:41 AM WAREHOUSE MANAGER) P athologist Signature Sodium 137 133 - 144 01/03/2018 [place] mmol/L 12:36 PM [facility] Potassium 3.9 3.4 - 5.3 01/03/2018 [place] mmol/L 12:36 PM [facility] Chloride 103 94 - 109 01/03/2018 [place] mmol/L 12:36 PM [facility] Carbon Dioxide 29 20 - 32 01/03/2018 [place] mmol/L 12:36 PM [facility] Anion Gap 5 3 - 14 01/03/2018 [place] mmol/L 12:36 PM [facility] Glucose 88 70 - 99 01/03/2018 [place] mg/dL 12:36 PM [facility] Urea Nitrogen 12 7 - 30 01/03/2018 [facility] mg/dL 12:36 PM [facility] Creatinine 0.76 0.52 - 01/03/2018 [facility] 1.04 mg/dL 12:36 PM [facility] GFR Estimate >90 >60 01/03/2018 [facility] mL/min/1.7 12:[address] Comment: Non GFR Calc GFR Estimate If >90 >60 mL/min/1.7m2 01/03/2018 12:36 PM [facility] Comment: GFR Calc Calcium 9.3 8.5 - 10.1 mg/dL 01/03/2018 12:36 PM [facility] Specimen Anatomical Collection Method Collection Time Receive d Time (Source) Location / / Volume Laterality Blood specimen 01/03/2018 11:41 8 (specimen) AM WAREHOUSE MANAGER 11:42 AM WAREHOUSE MANAGER Elisa Rosas MD LAB - BLOOD ORDERABLES Performing Organization Address City/State/ZIP Code Phon e Number M [place] [address] [place] [address] [phone] CBC with platelets differential (01/03/2018 11:41 AM WAREHOUSE MANAGER) [facility] Method Time Signature WBC 8.8 4.0 - 01/03/2018 [facility] 11.0 12:15 PM [facility] 10e9/L [facility] RBC Count 4.85 3.8 - 5.2 01/03/2018 [facility] 10e12/L 12:15 PM [facility] Hemoglobin 14.5 11.7 - 01/03/2018 [facility] 15.7 g/dL 12:15 PM [facility] Hematocrit 42.0 35.0 - 01/03/2018 [facility] 47.0 % 12:15 PM [facility] MCV 87 78 - 100 01/03/2018 [facility] fl 12:15 PM [facility] MCH 29.9 26.5 - 01/03/2018 [facility] 33.0 pg 12:15 PM [facility] MCHC 34.5 31.5 - 01/03/2018 [facility] 36.5 g/dL 12:15 PM [facility] RDW 11.9 10.0 - 01/03/2018 [facility] 15.0 % 12:15 PM [facility] Platelet Count 268 150 - 450 01/03/2018 [facility] 10e9/L 12:15 PM [facility] Diff Method Automated 01/03/2018 [facility] Method 12:15 PM [facility] % Neutrophils 62.3 % 01/03/2018 [facility] 12:15 PM [facility] % Lymphocytes 27.7 % 01/03/2018 [facility] 12:15 PM [facility] % Monocytes 6.7 % 01/03/2018 [facility] 12:15 PM [facility] % Eosinophils 2.4 % 01/03/2018 [facility] 12:15 PM [facility] % Basophils 0.7 % 01/03/2018 [facility] 12:15 [facility] % Immature 0.2 % 01/03/2018 [facility] Granulocytes 12:15 PM [facility] Nucleated RBCs 0 0 /100 01/03/2018 [facility] 12:15 PM [facility] Absolute 5.5 1.6 - 8.3 01/03/2018 [facility] Neutrophil 10e9/L 12:15 PM [facility] Absolute 2.4 0.8 - 5.3 01/03/2018 [facility] Lymphocytes 10e9/L 12:15 PM [facility] Absolute 0.6 0.0 - 1.3 01/03/2018 [facility] Monocytes 10e9/L 12:15 PM [facility] Absolute 0.2 0.0 - 0.7 01/03/2018 [facility] Eosinophils 10e9/L 12:15 PM [facility] Absolute 0.1 0.0 - 0.2 01/03/2018 [facility] Basophils 10e9/L 12:15 PM [facility] Abs Immature 0.0 0 - 0.4 01/03/2018 [facility] Granulocytes 10e9/L 12:15 PM [facility] Absolute 0.0 01/03/2018 [facility] Nucleated RBC 12:15 [facility] Specimen Anatomical Collection Method Collection Time Receive d Time (Source) Location / / Volume Laterality Blood specimen 01/03/2018 11:41 8 (specimen) AM WAREHOUSE MANAGER 11:42 AM WAREHOUSE MANAGER Elisa Rosas MD LAB - BLOOD ORDERABLES Performing Organization Address City/State/ZIP Code Phon e Number [facility] [address], [place] [address] [facility] [address] [place], [place] [address], [facility] [phone] EKG 12 lead (01/03/2018 10:44 AM WAREHOUSE MANAGER) [facility] gist Method Time Signature Interpretation ECG Click View RADIOLOGY Image link RESULTS to view waveform and result Specimen (Source) Anatomical Collection Method Collection Time Re ceived Time Location / / Volume Laterality 01/03/2018 10:44 AM WAREHOUSE MANAGER Elisa Rosas MD ECG ORDERABLES Performing Organization Address City/State/ZIP Code Phon e Number RADIOLOGY RESULTS documented in this encounter Visit Diagnoses Diagnosis Palpitations Chest pain, unspecified type documented in this encounter Administered Medications Inactive Administered Medications - up to 3 most recent administrations Medication Order MAR Action Action Date Dose Rate Site lidocaine (LMX4) cream Topical, EVERY 1 HOUR PRN, pain, with VA D insertion or accessing implanted port., Starting on Wed01/03/18 at 1140, Do NOT give if patient has a history of allergy to any local anesthetic or any carly product. Apply 30 minutes prior to VAD insertion or port access. MAX Dose: 2.5 g (?? of 5 g t ube) lidocaine 1 % 1 mL 1 mL, Other, EVERY 1 HOUR PRN, mild pain with VAD insertion or accessing implanted port, Starting on Wed01/03/18 at 1140, Do NOT give if patient has a history of allergy to any local anesthetic or any carly product. MAX dose 1 mL subcutaneous OR intradermal in divided doses. sodium chloride (PF) 0.9% PF flush 3 mL 3 mL, Intracatheter, EVERY 1 HOUR PRN, l ine flush, for peripheral IV flush post IV meds, Starting on Wed01/03/18 at 1140 sodium chloride (PF) 0.9% PF flush 3 mL 3 mL, Intracatheter, EVERY 8 HOURS, First dose on Wed01/03/18 at 1141, And Q1H PRN, to lock peripheral IV dormant line. documented in this encounter Active and Recently Administered Medications Times are shown in WAREHOUSE MANAGER. Scheduled Medication Order 01/01/2018 01/02/2018 01/03/2018 sodium chloride (PF) 0.9% PF flush 3 mL 1141 (Canceled Entry - Provider: Orders Generic Provider - Comment: Automatically canceled at discontinue of medication order) 3 mL, Intracatheter, EVERY 8 HOURS, Firs t dose on 01/03/18 at 1141, And Q1H PRN, to lock peripheral IV dormant line. PRN Medication Order 01/01/2018 01/02/2018 01/03/2018 lidocaine (LMX4) cream Topical, EVERY 1 HOUR PRN, pain, with VA D insertion or accessing implanted port., Starting Wed01/03/18 at 1140, Do NOT give if patient has a history of allergy to any local anesthetic or any carly pr oduct. Apply 30 minutes prior to VAD ins ertion or port access. MAX Dose: 2.5 g (?? of 5 g tube) lidocaine 1 % 1 mL 1 mL, Other, EVERY 1 HOUR PRN, mild pain with VAD insertion or accessing implanted port, Starting Wed01/03/18 at 1140, Do NOT give if patient has a history of allergy to any local anesthetic or any ca ine product. MAX dose 1 mL subcutaneous OR intradermal in divid ed doses. sodium chloride (PF) 0.9% PF flush 3 mL 3 mL, Intracatheter, EVERY 1 HOUR PRN, l ine flush, for peripheral IV flush post IV meds, Starting Wed01/03/18 at 1140 documented in this encounter Care Teams Propulsion Generator Repairer Relationship Specialty Start Date End Date Oswaldo Wiggins PCP - General Family Practice 01/11/17 [id number] [place] [id number] documented as of this encounter
--- OUTSIDE RECORDS SUMMARY | 2021-11-01 11:29 | XMS_ITS | Encounter Summary ---
:1990 Author Organization [facility] Address [address] [place] [address] Care Team Providers Name Role Phone Ana Mehta APRN, CNP Primary Care Provider [phone] Reason for Referral Consult/Transfer Care (Routine) - Closed Specialty Diagnoses / Procedures Referred By Contact Refer red To Contact Diagnoses Palpitations PVC (premature ventricular contraction) [place], [place] [address] [place] [address] Referral ID Status Reason Start Date Expiration Date Visits Requ ested Visits Authorized [id number] Closed 01/20/2018 04/21/2019 1 1 Scheduling Instructions Your provider has recommended an appoint ment with [facility]. You may call [phone] to schedule your appoi ntment. If you do not schedule an appointment within the next 1 to 3 business days, we will call you to help arrange your appointment. We suggest you call your [employer] insurance company about your coverage and benefits for this appointment. PREVENTION INSPECTOR Reason for Visit Reason Comments Follow-up ER visit Encounter Details Date Type Department Care Team Description 01/20/2018 Office Visit Leah Gannon Palp itations (Primary Dx); Medicine PVC (premature ventricular contraction); [address] [place], [place] [address] [place] [phone] Social History Tobacco Use Types Packs/Day Years [...] Sign Reading Time Taken Comments Blood Pressure 118/72 01/20/2018 9:44 AM FIRE PREVENTION INSPECTOR Pulse 79 01/20/2018 9:44 AM FIRE PREVENTION INSPECTOR Temperature - - Respiratory Rate - - Oxygen Saturation - - Inhaled Oxygen Concentration - - Weight 106.3 kg (234 lb 6.4 oz) 01/20/2018 9:44 AM FIRE PREVENTION INSPECTOR Height - - Body Mass Index 36.71 01/27/2017 3:29 PM FIRE PREVENTION INSPECTOR documented in this encounter Progress Notes Leah Styles MD - 01/20/2018 10:00 AM CST Patient: Destini Castelan Provider: Leah tSyles MD SUBJECTIVE: Patient is a 27-year-old female who today came in for follow for [facility] from January 03, 2018 for palpitation. Patient had palpitation in the morning when she woke up associated with nausea and some chest pain and shortness of breath and syncopal episode and no dizziness.. The EKG that shows sinus rhythm with occasional PVCs and incomplete right bundle branch block. CBC, BMP, magnesium is normal and troponin was negative. Patient have TSH checked in December 02 and was normal. Patient has signed a patch done that was pending and recommend follow with primary care physician. According topatient she was having palpitation every day for the last 2 months but it has improved for the last one week and now is occasional and not everyday. Patient does not any chest pain and shortness of breath and denies any stress or anxiety. Patient did have a silent patch done on December 29, 2017 that shows low concerning arrhythmias and the symptoms were associated with PVC or ventricular ectopy. Patient is planning to get in summer. Patient today came in for follow-up. PAST MEDICAL HISTORY: Past Medical History: Diagnosis Date ??? Abnormal Pap smear 09/2009 [facility]UC+HRHPV ??? Anemia ??? Encounter for insertion of intrauterine contraceptive device 02/07/2015 ??? Immunization, other disease ??? Irregular menstrual cycle ??? Pap smear abnormality of cervix ??? Sinusitis ??? Urinary tract infection ??? Varicella ALLERGIES: Allergies Allergen Reactions ??? Promethazine Syncope MEDICATIONS: Outpatient Medications Prior to Visit Medication Sig ??? ALBUterol sulfate HFA 108 (90 BASE) MCG/ACT inhaler Inhale 1-2 Puffs every 4 hours as needed forShortness of Breath. (Patient not taking: Reported on 12/08/2017) ??? fluticasone (AKA FLONASE) 50 MCG/ACT nasal solution Place 2 sprays into each nostril daily (every 24 hours). Dose is for each nostril. ??? fluticasone (FLONASE) 50 MCG/ACT nasal solution Place 2 Sprays into both nostrils daily. ??? levonorgestrel (AKA MIRENA) 20 MCG/24HR IUD 1 each by Intrauterine route See Admin Instructions.To be administered once every 5 years in clinic office. No facility-administered medications prior to visit. Social history: No smoking. EXAM VS: BP 118/72 (BP Location: Left Arm, BP Cuff Size: Adult Large) Pulse 79 Wt 234 lb 6.4 oz (106.3 kg) BMI 36.71 kg/m?? CONSTITUTIONAL: No obvious distress, appears healthy. LUNGS: Clear to auscultation and percussion. CARDIAC: Normal heart sounds, no edema. ASSESSMENT AND PLAN: 1: Palpitation/chest pain and shortness of breath: Patient workup include stress echo that was normal and side of patch shows no significant arrhythmias. Since patient is symptomatic recommend to see the foot cutter for further management probably consider beta carrol but since patient is planning to get we will await cardiology . The note is completed by voice recognition dictation software and typographical error may result. PREVENTION INSPECTOR documented in this encounter Plan of Treatment Scheduled Referrals Name Type Priority Associated Diagnoses Order S chedu Cardiology Referral Routine Palpitations Ordered: 01/20/2018 Consult-Adults PVC (premature ventricular cont raction) Chest pain, unspecified type documented as of this encounter Visit Diagnoses Diagnosis Palpitations - Primary PVC (premature ventricular contraction) Other premature beats Chest pain, unspecified type documented in this encounter Care Teams Muck Farmer Relationship Specialty Start Date End Date Ana Mehta, MERCHANDISE PRESENTATION ASSOCIATE, FIELD OPERATIONS COORDINATOR PCP - General 07/11/[address] [place] [address] documented as of this encounter
--- OUTSIDE RECORDS SUMMARY | 2021-11-01 11:29 | XMS_ITS | Encounter Summary ---
:1990 Author Organization [facility] Address [address] [place] [address] Care Team Providers Name Role Phone MehtaJeanAnadoug Paul APRN, AVIVA Primary Care Provider [phone] Reason for Visit Reason Comments COVID Screening Encounter Details Date Type Department Care Team Description 03/07/2020 Telephone [facility] Eli Moncada MD COVID Screening Services-PRINT INSPECTOR [address] [place] [address] [address] [place] [address] [phone] Social History Tobacco Use Types Packs/Day Years [...] documented as of this encounter Nursing Notes Gregoria Nevarez RN - 03/07/2020 9:16 AM CST Called pt and spoke with her. Pt states she accidentally said yes to these questions. Denies having any sxs or any of her family having any of these sxs. Will keep appt as scheduled. ZLYMAN Gregoria Nevarez, RN - 03/07/2020 9:14 AM CST ----- Message from Dyan Smith sent at 03/07/2020 8:17 AM GRIZZLYMAN ----- Patient Household member have fever(>100), cough, sore throat, new loss of taste or smell, or shortness of breath?: YES ZLYMAN documented in this encounter Plan of Treatment Not on filedocumented as of this encounter Visit Diagnoses Not on filedocumented in this encounter Care Teams Hard Rock Miner Blasting Relationship Specialty Start Date End Date Ana Mehta APRN, JOB SERVICE CONSULTANT PCP - General 07/11/13 [address] [place] [address] documented as of this encounter
--- OUTSIDE RECORDS SUMMARY | 2021-11-01 11:29 | XMS_ITS | Encounter Summary ---
:1990 Author Organization [facility] Address [address] [place] [address] Care Team Providers Name Role Phone Ana Mehta APRN, AVIVA Primary Care Provider [phone] Encounter Details Date Type Department Care Team Description 12/15/2017 [facility] En[facility] Electrocardiogram, Holter, Event Recorder [address] [place] [address] Social History Tobacco Use Types Packs/Day Years [...] as inhaler needed for Shortness of Breath. fluticasone (FLONASE) 50 Place 2 Sprays into 16 g 1 12/18/2018 MCG/ACT nasal both nostrils daily. solutionIndications: Allergic rhinitis, unspecified seasonality, unspecified trigger levonorgestrel (AKA 1 each by 1 each 0 02/07/201503/11 MIRENA) 20 MCG/24HR Intrauterine route IUDIndications: See Admin Encounter for insertion Instructions. To be of intrauterine administered once contraceptive device every 5 years in clinic office. documented as of this encounter Plan of Treatment Not on filedocumented as of this encounter Visit Diagnoses Not on filedocumented in this encounter Care Teams [employer] Consultant Relationship Specialty Start Date End Date Ana Mehta, MILL WORKER, INSTRUMENTATION FITTER PCP - General 07/11/[address] [place] [address] documented as of this encounter
--- OUTSIDE RECORDS SUMMARY | 2021-11-01 11:29 | XMS_ITS | Encounter Summary ---
:1990 Author Organization [facility] Address [address] [place] [address] Care Team Providers Name Role Phone Mehta, Anapushpa Paul APRN, CNP Primary Care Provider [phone] Reason for Visit Reason Comments Refill fluticasone propionate (FLON ASE) 50 MCG/ACT nasal solution [Pharmacy Med Name: FLUTICASONE PROP 50 MCG SPRA Y] Encounter Details Date Type Department Care Team Description 12/18/2018 Refill [facility] Shayne Styles MD Refill (fluticasone Medicine [address] propionate (FLONASE) 50 [address] [place] [address] MCG/[place] [address] [Pharmacy Med Name: [phone] FLUTICASO NE PROP 50 MCG SPRAY]) Social History Tobacco Use Types Packs/Day Years [...] documented as of this encounter Nursing Notes Stella Kearns, RN - 12/18/2018 6:00 PM CST Renewed medication per medication refill protocol. Requested Prescriptions Pending Prescriptions Disp Refills ??? fluticasone propionate (FLONASE) 50 MCG/ACT nasal solution [Pharmacy Med Name: FLUTICASONE PROP 50 MCG SPRAY] 48 g 0 Sig: INSTILL 2 SPRAYS INTO EACH NOSTRIL EVERY DAY [place] CLIENT MANAGER Interface, Out Surescripts Prov Query - 12/18/2018 12:49 AM CDT fluticasone propionate (FLONASE) 50 MCG/ACT nasal solution [Pharmacy Med Name: FLUTICASONE PROP 50 MCG SPRAY] Medication started: 12/26/2013 Last ordered by LIZBET STYLES: 12/08/2017 (375 days ago) QTY: 16, Refills: 1, Sig: place 2 sprays into both nostrils daily. (changed but equivalent) -> Refill x 3 months (until due for an office visit) -> Calculate quantity and refills manually. They could not be estimated due to missing or unreadable information. Last qualifying visit: 01/20/2018 (with LIZBET STYLES) Next scheduled visit: None SBP: 120 mm Hg on 04/25/2018 DBP: 80 mm Hg on 04/25/2018 Powered by [employer], Reference: [id number], 12/18/2018 12:49:17 AM Dean SEGURA: PANKAJ COLE REFILL ([id number]) [place] CLIENT MANAGER documented in this encounter Plan of Treatment Not on filedocumented as of this encounter Visit Diagnoses Diagnosis Allergic rhinitis, unspecified seasonali ty, unspecified trigger documented in this encounter Care Teams Sider Mechanic Relationship Specialty Start Date End Date Ana Mehta, GREEN CHAIN MARKER, SIGNAL WORKER HELPER PCP - General 07/11/[address] [place] [address] documented as of this encounter
--- OUTSIDE RECORDS SUMMARY | 2021-11-01 11:29 | XMS_ITS | Encounter Summary ---
:1990 Author Organization [facility] Address [address] [place] [address] Care Team Providers Name Role Phone Ana Mehta APRN, AVIVA Primary Care Provider [phone] Reason for Visit Reason Comments CONSULT Consult/Transfer Care (Routine) - Closed Specialty Diagnoses / Procedures Referred By Contact Refer red To Contact Diagnoses Snoring William Farmer III, MD [address] [place], [place] [address] Referral ID Status Reason Start Date Expiration Date Visits Requ ested Visits Authorized [id number] Closed 04/25/2018 07/25/2019 1 1 Encounter Details Date Type Department Care Team Description 05/30/2018 Office Visit Suman Pham MD BERTHA (obstructive sleep apnea) (Primary D x); Medicine [address] Periodic limb movement disor mark; [address] Hypersomnia; [place] [address] [place], [place] Bru[employer]; [phone] Sleep paralysis [phone] (Wo rk) Social History Tobacco Use Types [...] Sign Reading Time Taken Comments Blood Pressure 118/88 05/30/2018 8:04 AM CDT Pulse 74 05/30/2018 8:04 AM CDT Temperature - - Respiratory Rate - - Oxygen Saturation 99% 05/30/2018 8:04 AM CDT Inhaled Oxygen Concentration - - Weight 105.2 kg (232 lb) 05/30/2018 8:04 AM CDT Height 170.2 cm (5' 7) 05/30/2018 8:04 AM CDT Body Mass Index 36.34 05/30/2018 8:04 AM CDT documented in this encounter Patient Instructions Patient InstructionsIvana Thomas RN - 05/30/2018 8:00 AM CDT Your insurance requires prior authorization. [facility] will take care of that, and call you once it has been approved. Please fill the Ambien, and bring it with you to take when you are ready for bed. documented in this encounter Progress Notes Suman Chapman MD - 05/30/2018 12:00 PM CDT NAME: DESTINI CASTELAN MR#: [id number] CSN: [id number] AUTHENTICATING CLINICIAN: Suman Chapman MD CONFIRM #: [id number] LOC: 234 CLINIC PROGRESS NOTE DATE OF VISIT: 05/30/2018 : 1990 Ms Castelan is here for a consultation with Dr. William Farmer for evaluation of sleep-disordered breathing with a chief complaint of snoring, excessive daytime hypersomnolence and jolting herself awake with periodic limb movements of sleep. She normally goes to bed at 10 p.m., falls asleep in a few minutes. She wakes up 1-5 times per night. She wakes up with both leg kicks at night and apnea. She also has irregular skipped beats at night.She is out of bed at 6:30 in the morning. She is reporting 7 hours of sleep. She is in bed 8 hours. She is not rested, restored and refreshed. She has no complaint of sleep onset or sleep maintenance insomnia. She does push the snooze alarm. She wakes up with an alarm clock and has morning headaches regularly. She sleeps in on weekends and holidays due to hypersomnia. She has loud snoring, irregular breathing, definite observed apnea. She wakes herself up with an apnea. She also has occasional sleep paralysis. She has leg kicks at night. Her says she jerks and kicks all the time. She also grinds her teeth and talks in her sleep on occasion. The teeth grinding and has not been addressed specifically. She thinks it is fairly mild. She has nocturia x0 to 1. She is sleepy, tired, and fatigued throughout her day. She has decreased levels of alertness, focus,concentration. She feels like it interferes with her work. She gets dozy driving. She is not rested in the morning. She pushes the snooze alarm multiple times. She drinks caffeinated products to help her stay awake. Her eyes go closed at work, and she has to get up and walk around regularly. She has no cataplexy or hypnagogic or hypnopompic hallucinations. She does report occasional sleep paralysis. She denies anxiety or depression. She does feel like she is under a lot of stress. She has 0-3 drinksper day. There is no tobacco or illicit drug use. 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 She has a total of 50 hours a week. She reports chronic rhinosinusitis and seasonal allergies. Has a history of polypectomy and chronic sinus infections. REVIEW OF SYSTEMS: Otherwise negative, except per HPI. PHYSICAL EXAM: VITAL SIGNS: Weight 232, O2 saturation 99%. HEENT: TMs clear. Nasopharynx normal. Oropharynx shows a Mallampati 2, a wide elongated edematous uvula. There is no thyromegaly or adenopathy. CHEST: Clear to auscultation and percussion. CARDIAC: Regular rate and rhythm without gallops, rubs, murmurs. ABDOMEN: Soft, nontender. Bowel sounds intact. EXTREMITIES: Without cyanosis, clubbing or edema. NECK: Normal. BACK: Normal. NEURO: Normal strength, gait and station. LABORATORY DATA: Includes a PHQ-9 of 6/15, Mallampati score 2. [place] Sleepiness Scale is 16. ASSESSMENT: 1.Periodic limb movements of sleep. She has leg kicks at night. She kicks the sheets and wakes her up. She has medical necessity for in-lab polysomnogram for periodic limb movements of sleep. 2.Obstructive sleep apnea. We talked about the pathophysiology and treatment of obstructive sleep apnea in detail for counseling time. We reviewed cardiovascular risk and weight loss. She will need a CPAP titration. We will do a PSG with a CPAP titration in lab for sleep apnea. 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 We will measure that and see if it might be frequent enough to consider referring her for dental. We recommended her to have her dentist evaluate that anyway, but she has a medical necessity for in-lab PSG due to bruxism. 4.Sleep paralysis. She has had occasional sleep paralysis. She is of the age where she might have marked narcolepsy. We will make sure there is no PSG evidence in the nocturnal lab for that. 5.Hypersomnia. She also may have idiopathic hypersomnia or even narcolepsy with her history of sleepparalysis, and we will review a polysomnogram and consider whether she might need an MSLT at some point. Total time 45 minutes, counseling time 30. HEATHER:MEDDayna C: CONFIRM #: [id number] documented in this encounter Plan of Treatment Not on filedocumented as of this encounter Visit Diagnoses Diagnosis BERTHA (obstructive sleep apnea) - Primary Obstructive sleep apnea (adult) (pediatr ic) Periodic limb movement disorder Hypersomnia Hypersomnia, unspecified Bruxism ([facility]) Other specified psychophysiological malf unction Sleep paralysis Sleep related movement disorder, unspeci fied documented in this encounter Care Teams Optometry Assistant Relationship Specialty Start Date End Date Ana Mehta, STRIPPER APPRENTICE, SPRING REPAIRER HELPER HAND PCP - General 07/11/13 [address] [place] [id number] documented as of this encounter
--- OUTSIDE RECORDS SUMMARY | 2021-11-01 11:29 | XMS_ITS | Encounter Summary ---
:1990 Author Organization [facility] Address [address] [place] [address] Care Team Providers Name Role Phone Ana Mehta APRN, CNP Primary Care Provider [phone] Reason for Visit Reason Comments Palpitations Chest Pain (Routine) - Closed Specialty Diagnoses / Procedures Referred By Contact Refer red To Contact Diagnoses Palpitations Chest pain, unspecified type Leah Styles MD Procedures Stress Echocardiogram [address] [place] [address] Referral ID Status Reason Start Date Expiration Date Visits Requ ested Visits Authorized [id number] Closed 12/08/2017 03/09/2019 1 1 Encounter Details Date Type Department Care Team Description 12/13/2017 Procedure Visit [facility] Palpitations ; Chest Pain Echocardiogram [address] [place] [address] Social History Tobacco Use Types Packs/Day Years [...] documented as of this encounter Progress Notes Ana Edwards RN - 12/13/2017 2:00 PM CDT Stress test complete. Results pending. documented in this encounter Plan of Treatment Not on filedocumented as of this encounter Procedures Procedure Name Priority Date/Time Associated Comments Diagnosis STRESS ECHOCARDIOGRAM Routine 12/13/2017 1:48 PM Palpita tions Results for this CDT Chest pain, procedure are i n unspecified type the results section. documented in this encounter Results Stress Echocardiogram (12/13/2017 1:48 PM CDT) Specimen (Source) Anatomical Collection Method Collection Time Re ceived Time Location / / Volume Laterality 12/13/2017 1:48 PM CDT Narrative PN ECHO - 12/13/2017 2:56 PM CDT STRESS ECHOCARDIOGRAM. Date: 12/13/2017 Start: 01:48 PM Facilit y: [facility] CONCLUSIONS REST: Chamber size, wall motion, and wall thic kness are normal. No significant valvular abnormalities are s een. The visually estimated LVEF is 60%. STRESS: All segments display appropriate hyperki nesis; ejection fraction increases appropriately. End systolic area did NOT increase. CONCLUSION: 1. Normal bicycle stress echocardiogram with adequate heart rate and workload. 2. No evidence for inducible ischemia. 3. Risk stratification is low risk based on normal stress echocardiogram REST ECG Normal sinus rhythm. Normal ST-T segmen ts. Resting HR:70 bpmResting BP:124/86 mmHg Pre-Stress Physical Exam No medications which affect electrocard iographic interpretation. STRESS Stress Type: Bike Ergometer Peak HR: 169 bpm ?HR Response: Normal Peak BP: 180/90 mmHg ?BP Response: Normal Max Predicted HR: 192 bpm ? HR BP Product: 16540 % of Max Predicted HR: 88 ? Max Exercise: 5.9 METS Test Duration: 10.58 min Reason for Termination: Fatigue ? Exercise Effort: Good Risk Stratification: Low risk Stress Interpretation ECG portion of stress test is negative for ischemia. RESULTS Global LVEF (rest): Normal (LVEF >51%) Global LVEF (stress): Normal (LVEF >51% ) ECG No significant ST-T changes noted. ARRHYTHMIAS Rare isolated PVCs noted during the [place]. SYMPTOMS Fatigue. Musculoskeletal. Symptoms reproduced, but not typical fo r angina. Protocol completed. Predicted heart rat e achieved. Symptoms resolved with rest. M-MODE/2D MEASUREMENTS & CALCULATIONS EF Estimated: 60 % ?MR Radius: PROCEDURE Doppler Quality: Adequate quality pulse, continuous wave, and color Doppler was performed and interpreted. 2-D Quality:Adequate quality 2-dimension al echo was performed and interpreted. Indications: Palpitations and chest pain . Contrast Medium: Optison. Contrast Amt. - 1.2 ml Height: 67 inches Weight: 230 pounds BSA : 2.15 m^2 BMI: 36.02 kg/m^2 Rhythm: Sinus Gender: ?Female *Suboptimal study; Echo dropout of the a nterior, lateral, apical, septal, inferior wall/s. 6 of 6 segments in standard Apical 4 chamber, 3 chamber, 2 chamber view/s are not visu alized on study. An image enhancer was used due to suboptimal endo cardial definition. With the use of an image enhancer, the segments o f the left ventricle were reasonably visualized. *IV Size: 24 ga; IV Location: right; # o f attempts: 1; Vein: cephalic vein. SIGNATURE DEMOGRAPHICS Patient Name ?? JAY Plata ?? Room Number ?OUTPT Patient Number [id number] ? Bennett e of Study ?12/13/2017 Accession ?[id number] ? Interpreting ? BRITTON العلي MD Number ?Physician Date of ??1990 ? Ord ering Physician LEAH STYLES ?MD Primary ?LEAH STYLES Physician ?MD ? Warehouse Pricing And Inventory Clerk ?TOMMY, [facility] Nurse ?MAURICIO, brush stainer Note Britton العلي MD - 12/13/2017 STRESS ECHOCARDIOGRAM. Date: 12/13/2017 Start: 01:48 PM Facilit y: [facility] CONCLUSIONS REST: Chamber size, wall motion, and wall thic kness are normal. No significant valvular abnormalities are s een. The visually estimated LVEF is 60%. STRESS: All segments display appropriate hyperki nesis; ejection fraction increases appropriately. End systolic area did NOT increase. CONCLUSION: 1. Normal bicycle stress echocardiogram with adequate heart rate and workload. 2. No evidence for inducible ischemia. 3. Risk stratification is low risk based on normal stress echocardiogram REST ECG Normal sinus rhythm. Normal ST-T segmen ts. Resting HR:70 bpmResting BP:124/86 mmHg Pre-Stress Physical Exam No medications which affect electrocard iographic interpretation. STRESS Stress Type: Bike Ergometer Peak HR: 169 bpm HR Response: Normal Peak BP: 180/90 mmHg BP Response: Leatha l Max Predicted HR: 192 bpm HR BP Product : 60479 % of Max Predicted HR: 88 Max Exercise: 5.9 METS Test Duration: 10.58 min Reason for Termination: Fatigue Exercis e Effort: Good Risk Stratification: Low risk Stress Interpretation ECG portion of stress test is negative for ischemia. RESULTS Global LVEF (rest): Normal (LVEF >51%) Global LVEF (stress): Normal (LVEF >51% ) ECG No significant ST-T changes noted. ARRHYTHMIAS Rare isolated PVCs noted during the [place] SYMPTOMS Fatigue. Musculoskeletal. Symptoms reproduced, but not typical fo r angina. Protocol completed. Predicted heart rat e achieved. Symptoms resolved with rest. M-MODE/2D MEASUREMENTS & CALCULATIONS EF Estimated: 60 % MR Radius: PROCEDURE Doppler Quality: Adequate quality pulse, continuous wave, and color Doppler was performed and interpreted. 2-D Quality:Adequate quality 2-dimension al echo was performed and interpreted. Indications: Palpitations and chest pain . Contrast Medium: Optison. Contrast Amt. - 1.2 ml Height: 67 inches Weight: 230 pounds BSA : 2.15 m^2 BMI: 36.02 kg/m^2 Rhythm: Sinus Gender: Female *Suboptimal study; Echo dropout of the a nterior, lateral, apical, septal, inferior wall/s. 6 of 6 segments in standard Apical 4 chamber, 3 chamber, 2 chamber view/s are not visu alized on study. An image enhancer was used due to suboptimal endo cardial definition. With the use of an image enhancer, the segments o f the left ventricle were reasonably visualized. *IV Size: 24 ga; IV Location: right; # o f attempts: 1; Vein: cephalic vein. SIGNATURE DEMOGRAPHICS Patient Name JAY Plata Room Number OUTPT Patient Number [id number] Date of Study 1 Interpreting BRITTON WILCOX MD Number Physician Date of 1990 Ordering Physi edelmira LEAH STYLES MD Primary LEAH STYLES Physician Warehouse Pricing And Inventory Clerk VJ, [facility] Nurse KH, RN Leah Styles MD PN ECHO ORDERABLES Performing Organization Address City/State/ZIP Code Phon e Number PN ECHO documented in this encounter Visit Diagnoses Diagnosis Palpitations Chest pain, unspecified type documented in this encounter Care Teams Staff Training And Development Manager Relationship Specialty Start Date End Date Ana Mehta, PROCESS CHEESE COOKER, SUPERANNUATION CLERK PCP - General 07/11/13 [address] [address] [place] [address] documented as of this encounter
--- OUTSIDE RECORDS SUMMARY | 2021-11-01 11:29 | XMS_ITS | Encounter Summary ---
:1990 Author Organization [employer] Address [address] [place] [address] Care Team Providers Name Role Phone Ana Mehta APRN, CNP Primary Care Provider [phone] Reason for Referral (Routine) - Closed Specialty Diagnoses / Procedures Referred By Contact Refer red To Contact Diagnoses Palpitations Chest pain, unspecified type Leah Styles MD Procedures Stress Echocardiogram [address] [place] [place] [address] Referral ID Status Reason Start Date Expiration Date Visits Requ ested Visits Authorized [id number] Closed 12/08/2017 03/09/2019 1 1 Reason for Visit Reason Comments Palpitations Encounter Details Date Type Department Care Team Description 12/08/2017 Office Visit [facility] Leah Styles, Palp itations (Primary Dx); Medicine Skipped heart beats; [address] [address] [place] Chest pain, unspecified type; [place] [address] [place] Allergic rhinitis, unspecifi ed seasonality, unspecified trigger [phone] Social History Tobacco Use Types Packs/Day Years [...] Sign Reading Time Taken Comments Blood Pressure 110/70 12/08/2017 2:45 PM CDT Pulse 105 12/08/2017 2:45 PM CDT Temperature - - Respiratory Rate - - Oxygen Saturation 100% 12/08/2017 2:45 PM CDT Inhaled Oxygen Concentration - - Weight 104.3 kg (230 lb) 12/08/2017 2:45 PM CDT Height - - Body Mass Index 36.02 01/27/2017 3:29 PM FORESTRY FARM LABORER documented in this encounter Progress Notes Leah Styles MD - 12/08/2017 3:00 PM CDT Patient: Destini Castelan Provider: Leah Styles MD SUBJECTIVE: Patient is a 27-year-old female who today came in with concern of palpitation and skipped heartbeat off and on for one month. According to the patient she is noticing skipped heartbeat off-and-on everyday and palpitation off and on but not everyday and that is usually 1-2 times a week. Sometime it is associated with chest pain which is occasional and it is 3-4 out of 10 in severity dull ache in nature. Patient denies any radiation. It is not associated with any nausea, vomiting, sweating and dizziness and shortness of breath. Patient denies any anxiety and no recent stressors. Patient went to [place] one and a half week ago but the symptoms she is having is for the last one month. Patient denies any pleuritic chest pain. Patient does not any history of asthma and is not wheezing. Patient also history of allergic rhinitis and wants to get the refill of Flonase and no side effects on the medication. Patient today came in for evaluation. PAST MEDICAL HISTORY: Past Medical History: Diagnosis [...] hours). Dose is for each nostril. ??? levonorgestrel (AKA MIRENA) 20 MCG/24HR IUD 1 each by Intrauterine route See Admin Instructions.To be administered once every 5 years in clinic office. No facility-administered medications prior to visit. Social history: No history of premature coronary artery disease in the family. EXAM VS: BP 110/70 (BP Location: Left Arm, BP Cuff Size: Adult Regular) Pulse (!) 105 Wt 230 lb (104.3 kg) SpO2 100% BMI 36.02 kg/m2 CONSTITUTIONAL: No obvious distress, appears healthy. LUNGS: Clear to auscultation and percussion. CARDIAC: Normal heart sounds, no edema. ABDOMEN: Nontender, no hepatomegaly, positive bowel sounds. ASSESSMENT AND PLAN: 1: Palpitation/skipped heartbeat and chest pain: I did the EKG and it shows normal sinus rhythm, cannot rule out anterior infarct age undetermined. Abnormal EKG.When compared to previous EKG no significant change is noted. Patient is not having any chest pain now. I did the blood work including CBC, electrolytes, BUN, creatinine and is normal and TSH is pending. Recommend to proceed with stress echo and Zio patch PAL for further evaluation. If start getting any symptoms that is worsening recommend to go to ER. The note is completed by voice recognition dictation software and typographical error may result. documented in this encounter Plan of Treatment Not on filedocumented as of this encounter Procedures Procedure Name Priority Date/Time Associated Diagnosis Comme nts ECG 12 LEAD Routine 12/08/2017 3:26 PM Palpitations Results for this OUTPATIENT CDT Skipped heart be ats procedure are in Chest pain, the results unspecified type section. documented in this encounter Results Ziopatch Recorder (12/29/2017 12:08 PM FORESTRY FARM LABORER) Narrative PN POCT - 12/29/2017 12:08 PM FORESTRY FARM LABORER Zio XT Final Report for: Destini Castelan Date of : [birth year] (27 yrs) Gender: Female Prescribing Clinician: Dr. Gisela Styles Managing Location: [facility] Primary Indication: (R00.2) Palpitations Enrollment Period: 12/15/17, 04:02pm to 12/29/17, 03:02pm, 14 days 0 hours Analysis Time: 13 days 14 hours (after a rtifact removed) Patient Events Triggered Events: 36 Findings within ?? 45 sec of Triggers: S inus Rhythm, Ectopic Atrial Rhythm, Ventricular Bigeminy, Ventricular Ectopic beat(s) Diary Entries: 20 Findings within ?? 45 sec of Entries: Si nus Rhythm, Ectopic Atrial Rhythm, Ventricular Ectopic Beat(s) Patient had a min HR of 58 bpm, max HR o f 155 bpm, and avg HR of 87 bpm. Predominant underlying rhythm was Sinus Rhythm. Ectopic Atrial Rhythm was present. Ectopic Atrial Rhythm was detected withi n +/- 45 seconds of symptomatic patient event(s). Isolated SVEs were rare (<1.0%), and no SVE Couplets or SVE Triplets were present. Isolated VEs were rare (<1.0%), VE Coupl ets were rare (<1.0%), and no VE Triplets were present. Ventricular Bigeminy and Trigeminy were present. Comment: Zio is unremarkable. Symptoms o ccurred in association with PVCs or ventricular ectopy. Dr. Kraig Lyon Leah Styles MD CARDIOLOGY/AR Performing Organization Address City/State/ZIP Code Phon e Number POCT PN POCT Stress Echocardiogram (12/13/2017 1:48 PM CDT) Specimen [...] HR: 192 bpm ? HR BP Product: 85093 % of Max Predicted HR: 88 ? [...] Plata ?? Room Number ?OUTPT Patient Number [id number] ? Bennett e of Study ?12/13/2017 Accession ?[id number] ? Interpreting ? BRITTON العلي MD Number ?Physician Date of ??1990 ? Ord ering Physician LEAH STYLES ?MD Primary ?LEAH STYLES Physician ?MD ? Guyline Operator ?VJ, [facility]CS Nurse ?MAURICIO, [place] gold attendant Note Britton العلي MD - 12/13/2017 STRESS ECHOCARDIOGRAM. Date: 12/13/2017 Start: 01:48 PM Facilit y: [place] CONCLUSIONS REST: Chamber size, wall motion, and [...] HR: 192 bpm HR BP Product : 45300 % of Max Predicted HR: 88 Max [...] JAY Plata Room Number OUTPT Patient Number [id number] Date of Study 1 Interpreting BRITTON WILCOX MD Number Physician Date of 1990 Ordering Physi edelmira STYLES MD Primary LEAH STYLES Physician Guyline Operator VBoni, [facility] Nurse KH, RN Leah Styles MD PN ECHO ORDERABLES Performing Organization Address City/State/ZIP Code Phon e Number PN ECHO ECG 12 Lead Outpatient (12/08/2017 3:26 PM CDT) P athologist Signature Ventricular Rate 92 BPM [facility] Atrial Rate 92 BPM [facility] P-R Interval 154 ms [facility] QRS Duration 86 ms [facility] QT 348 ms [facility] QTc 430 ms [facility] P [place] 44 degrees [facility] R [place] 37 degrees [facility] T [place] 40 degrees [facility] Specimen (Source) Anatomical Collection Method Collection Time Re ceived Time Location / / Volume Laterality 12/08/2017 3:26 PM CDT Narrative [facility] - 12/08/2017 4:54 PM CDT Sinus rhythm Cannot rule out Anterior infarct (cited on or before 25-FEB-2011) Abnormal ECG When compared with ECG of 11-JAN-2017 12 :07, No significant change was found Confirmed by JOLANTA PIZANO ([id number]) o n 12/08/2017 4:54:39 PM Procedure Note Jolanta Pizano MD / Epic, Interna l Processing - 06/01/2019 Sinus rhythm Cannot rule out Anterior infarct (cited on or before 25-FEB-2011) Abnormal ECG When compared with ECG of 11-JAN-2017 12 :07, No significant change was found Confirmed by JOLANTA PIZANO ([id number]) o n 12/08/2017 4:54:39 PM Leah Styles MD PN ECG ORDERABLES Performing Organization Address City/State/[facility] Phon e Number MUSE [facility] [address] [place] [address] TSH (12/08/2017 3:16 PM CDT) athologist Signature Thyroid 0.86 0.30 - PN SOFT Stimulating 4.50 Hormone uIU/mL Specimen Anatomical Collection Method Collection Time Receive d Time (Source) Location / / Volume Laterality 12/08/2017 3:16 PM 8 6:38 CDT PM CDT Narrative PN SOFT - 12/08/2017 7:22 PM CDT Performed at [facility], [address] [place] [address] CLIA number [id number] Leah Styles MD LAB_1 Performing Organization Address City/State/ZIP Code Phon e Number PN SOFT [address] [place] [address] Complete Blood Count W/Diff (12/08/2017 3:16 PM [...] - 12/08/2017 3:20 PM [place] [address] CLIA number [id number] Leah Styles MD LAB_1 Performing Organization Address [facility] Code Phon e Number PN SOFT [address] [place] [address] [phone] Glucose (12/08/2017 3:16 PM CDT) athologist [facility] Lab Glucose 79 70 - 100 PN SOFT mg/dL Comment: The stated glucose range is for the fast ing state. Non-fasting glucose range is 70-180 mg/d L Specimen Anatomical Collection Method Collection Time Receive d Time (Source) Location / / Volume Laterality 12/08/2017 3:16 PM 8 3:16 CDT PM CDT Narrative PN SOFT - 12/08/2017 4:43 PM CDT Performed at [facility] [address] [place] [address] CLIA number [id number] Leah Styles MD LAB_1 Performing Organization Address City/[facility]/ZIP Code Phon e Number PN SOFT [address] [place] [address] Calcium (12/08/2017 3:16 PM CDT) athologist Signature Calcium 10.0 8.4 - 10.4 PN SOFT mg/dL Specimen Anatomical Collection Method Collection Time Receive d Time (Source) Location / / Volume Laterality 12/08/2017 3:16 PM 8 3:16 CDT PM CDT Narrative PN SOFT - 12/08/2017 4:43 PM CDT Performed at [facility] [address] [place] [address] CLIA number [id number] Leah Styles MD LAB_1 Performing Organization Address City/[facility] Code Phon e Number PN SOFT [address] [place] [address] Electrolyte Panel (12/08/2017 3:16 PM CDT) athologist [...] - 12/08/2017 3:36 PM CDT Performed at [facility], [address] [place] [address] CLIA number [id number] Leah Styles MD LAB_1 Performing Organization Address City/[facility] Phon e Number PN SOFT [address] [place] [address] [phone] Creatinine (12/08/2017 3:16 PM CDT) athologist Signature [...] - 12/08/2017 3:36 PM CDT Performed at [facility], [address] [place] [address] CLIA number [id number] Leah Styles MD LAB_1 Performing Organization Address [facility] Phon e Number PN SOFT [address] [place] [address] BUN (12/08/2017 3:16 PM CDT) P athologist Signature Blood Urea <10 9 - 26 PN SOFT Nitrogen mg/dL Specimen Anatomical Collection Method Collection Time Receive d Time (Source) Location / / Volume Laterality 12/08/2017 3:16 PM 8 3:16 CDT PM CDT Narrative PN SOFT - 12/08/2017 3:36 PM CDT Performed at [facility], [facility] [address] [place] [address] CLIA number [id number] Leah Styles MD LAB_1 Performing Organization Address City/[facility] Phon e Number PN SOFT [address] [place] [address] documented in this encounter Visit Diagnoses Diagnosis Palpitations - Primary Skipped heart beats Cardiac dysrhythmia, unspecified Chest pain, unspecified type Allergic rhinitis, unspecified seasonali ty, unspecified trigger Chest pain, unspecified type Palpitations Palpitations Chest pain, unspecified type Palpitations Skipped heart beats Cardiac dysrhythmia, unspecified documented in this encounter Care Teams Acid Dipper Relationship Specialty Start Date End Date Ana Mehta, STAFF SCIENTIST, TRACK ANNOUNCER PCP - General 07/11/[address] [place] [address] (work) documented as of this encounter
--- OUTSIDE RECORDS SUMMARY | 2021-11-01 11:29 | XMS_ITS | Encounter Summary ---
:1990 Author Organization [employer] Address [address] [place] [address] Care Team Providers Name Role Phone Ana Mehta APRN, AVIVA Primary Care Provider [phone] Encounter Details Date Type Department Care Team Description 12/29/2017 Hospital Encounter [facility] Palpitations; Electrocardiogram, Skipped h eart beats Holter, Event Record er [address] [facility] [place] [address] Social History Tobacco Use Types [...] Place 2 Sprays into 16 g 1 10 / 12/18/2018 MCG/ACT nasal both nostrils daily. solutionIndications: [...] Name Priority Date/Time Associated Diagnosis Comme nts ZIOPATCH RECORDER: Routine 12/29/2017 12:08 PM Palpitati ons Results for this 48 HOURS-7 DAYS DIVERSIFIED CROPS I FARMWORKER Skipped heart beats proce dure are in the results section. documented in this encounter Results Ziopatch Recorder (12/29/2017 12:08 PM DIVERSIFIED CROPS I FARMWORKER) Narrative PN POCT - 12/29/2017 12:08 PM DIVERSIFIED CROPS I FARMWORKER Zio XT Final Report for: Destini Castelan Date of : [birth year] (27 yrs) Gender: Female Prescribing Clinician: Dr. Gisela Styles Managing Location: [facility] Primary Indication: (R00.2) Palpitations Enrollment Period: [...] Code Phon e Number POCT PN POCT documented in this encounter Visit Diagnoses Diagnosis Palpitations Skipped heart beats Cardiac dysrhythmia, unspecified documented in this encounter Care Teams Instrument Maker And Repairer Relationship Specialty Start Date End Date Ana Mehta, STATION HELPER, SAMMYING MACHINE OPERATOR PCP - General 07/11/13 [address] [place] [address] documented as of this encounter
--- OUTSIDE RECORDS SUMMARY | 2021-11-01 11:29 | XMS_ITS | Encounter Summary ---
:1990 Author Organization [employer] Address [address] [place] [address] Care Team Providers Name Role Phone Ana Mehta APRN, CNP Primary Care Provider [phone] Reason for Referral Consult/Transfer Care (Routine) - Closed Specialty Diagnoses / Procedures Referred By Contact Refer red To Contact Diagnoses Snoring William Farmer III, MD [address] [place], [place] [address] Referral ID Status Reason Start Date Expiration Date Visits Requ ested Visits Authorized [id number] Closed 04/25/2018 07/25/2019 1 1 Scheduling Instructions Your provider has recommended an appoint ment with [facility]. You may call [phone] to schedule your appointment. If you do not schedule an appointment within the next 1 to 3 business days, we will call you to help arrange your appointment. We sugges t you call your health insurance company about your coverage and benefits for thi s appointment. Reason for Visit Reason Comments Preventative Cardiology Consult Consult/Transfer Care (Routine) - Closed Specialty Diagnoses / Procedures Referred By Contact Refer red To Contact Diagnoses Palpitations PVC (premature ventricular contraction) Chest [place], [place] [address] [place] [address] Referral ID Status Reason Start Date Expiration Date Visits Requ ested Visits Authorized [id number] Closed 01/20/2018 04/21/2019 1 1 Encounter Details Date Type Department Care Team Description 04/25/2018 Initial Consult William Sosa Snoring (Primary Dx); Kiarra MORALES MD PVC (premature ventricular contraction); [address] [employer] 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 She is a 27 yo obese female with nasal polyps, snoring and palpitations. 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 She does this evening work for extra money, but actually enjoys it as well. Her reports that she snores. He does not clearly describe apnea events, but she reports waking up feeling startled several times per week. She also describes daytime somnolence, feeling more tired than she would expect around 2 or 3 in theafternoon almost every work day. She does not smoke tobacco and does not have significant alcohol consumption (reports 6 alcohol-based beverages per week). She considers result to be in good health, participating in half an hour exercise classes 6 days perweek. Though, she does not report achieving moderate levels of intensity of exercise with these courses. Weight has remained stable, but elevated for many years. Over the last several years she has had increasing frequency of symptoms of palpitations. She reports having a single isolated more forceful heartbeat occurring basically every day. Palpitations will occur during all phases of the day, but are typically more annoying during periods of rest. Last year she completed a stress echo with normal structure at rest and normal structure with exertion. A single PVC occurred during the stress phase, and more frequent monomorphic PVCs were seen during the recovery phase. 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 She then completed a 14 day prolong cardiac cath lab technologist (ZIO patch). No significant burden of supraventricular ectopy was identified. Symptoms of palpitations appear to correlate with PVCs. Total PVC burden remained rare during the period of monitoring. She had one episode where 2 PVCs were closely coupled, but no prolonged runs occurred. She reported the period of monitoring as typical. She has not had high-risk symptoms such as syncope or presyncope. Destini has not had chest pain or exertional chest pressure. She denies orthopnea, PND or lower extremity edema. Patient Active Problem List Diagnosis ??? Nasal polyps ??? Encounter for insertion of intrauterine contraceptive device ??? Retained foreign body of foot Family History: No history of sudden cardiac . No history of premature CAD Social Hx: Never used Tobacco 6 drinks for weekly ETOH use No Drug abuse Labs: Reviewed in EMR Medications: Reviewed in EMR Allergies and Adverse Drug Reactions: Reviewed in EMR Recent Cardiac Test: EKG reviewed in [facility] with poor r wave progression ZIOpatch- Comment: Zio is unremarkable. Symptoms occurred in association with PVCs or ventricular ectopy. Dr. Kraig Lyon STRESS ECHOCARDIOGRAM. Date: 12/13/2017 Start: 01:48 PM Facility: [facility] CONCLUSIONS REST: Chamber size, wall motion, and wall thickness are normal. No significant valvular abnormalities are seen. The visually estimated LVEF is 60%. STRESS: All segments display appropriate hyperkinesis; ejection fraction increases appropriately. End systolic area did NOT increase. CONCLUSION: 1. Normal bicycle stress echocardiogram with adequate heart rate and workload. 2. No evidence for inducible ischemia. 3. Risk stratification is low risk based on normal stress echocardiogram Review of Systems - History obtained from chart review and the patient General ROS: negative for - chills or night sweats Psychological ROS: negative for - anxiety or depression Ophthalmic ROS: negative for - blurry vision or eye pain ENT ROS: negative for - headaches or oral lesions Allergy and Immunology ROS: negative for - hives or latex Hematological and Lymphatic ROS: negative for - blood clots or night sweats Endocrine ROS: negative for - polydipsia/polyuria or temperature intolerance Respiratory ROS: no cough, shortness of breath, or wheezing Cardiovascular ROS: no chest pain or dyspnea on exertion Gastrointestinal ROS: no abdominal pain, change in bowel habits, or black or bloody stools Genito-Urinary ROS: no dysuria, trouble voiding, or hematuria Musculoskeletal ROS: negative for new joint pain or muscle pain Neurological ROS: no TIA or stroke symptoms Dermatological ROS: negative for - eczema or mole changes Exam: BP 120/80 (BP Location: Left Arm, BP Cuff Size: Adult Large) Pulse 68 Wt 235 lb 3.2 oz (331927 g) BMI 36.84 kg/m?? Estimated body mass index is 36.84 kg/m?? as calculated from the following: Height as of 01/27/17: 5' 7 (170.2 cm). Weight as of this encounter: 235 lb 3.2 oz (360017 g). GEN- patient awake alert and conversant NEURO- moves all 4 extremities appropriately PSYCH- outgoing and positive mood HEAD- normocephalic and atraumatic EYES- no icterus and extraocular muscles are grossly intact NECK- supple, JVP 2cm and no carotid bruits OROPHARYNX- no erythema and no tonsillar exudates LUNGS- clear to auscultation bilaterally CV- RRR, normal s1 and s2, no murmurs, PMI is normal. ABD- + bowel sounds, soft, obese, nontender, no distension EXT- no edema, +2 DPs SKIN- no new rash or venous stasis changes Assessment and Plan: 1) Snoring- patient reports snoring and symptoms of daytime somnolence. In addition, she reports fairly frequent waking up feeling startled. Pattern is consistent with risk for obstructive sleep apnea. I have recommended a sleep study. If she has evidence of obstructive sleep apnea, treatment will be strongly recommended. 2) Palpitations (PVC)- although the overall burden of ventricular ectopy remains low, it does appearto be both symptomatic and disruptive to quality of life. Previous testing, including a normal stress echo, was reviewed with the patient. This suggests that the burden of ectopy is most likely benign.No specific additional testing or medical therapy is required, unless desired to try to improve quality of life. However, there is a well established relationship between PVCs and obstructive sleep apnea. Testing for obstructive sleep apnea is ongoing, if present, treatment may reduce burden of ectopyas well. 3) Obesity- body mass index=36.8. We discussed the importance of trying to maximize last modification therapy. This should include being more cognizant of diet, with a goal of weight loss. This should also included trying to increase activity to a goal of 150 minutes of moderate aerobic activity per week. 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
--- OUTSIDE RECORDS SUMMARY | 2021-11-01 11:29 | XMS_ITS | Encounter Summary ---
:1990 Author Organization [facility] Address [address] [place] [address] Care Team Providers Name Role Phone MehtaJeanAnadoug Paul APRN, AVIVA Primary Care Provider [phone] Reason for Referral Procedure/Equipment (Routine) - Incomplete Specialty Diagnoses / Procedures Referred By Contact Refer red To Contact Diagnoses Chest pain, unspecified type Ana Milian MD Procedures XR Chest 2 Views [address] [place], [place] [address] Referral ID Status Reason Start Date Expiration Date Visits V isits Requested Authorized [id number] Incomplete 01/11/2017 04/12/2018 1 1 NSIC PSYCHIATRIST (Routine) - Closed Specialty Diagnoses / Procedures Referred By Contact Refer red To Contact Procedures Ana Milian MD ECG 12 Lead Inpatient [address] [place], [place] [address] Referral ID Status Reason Start Date Expiration Date Visits Requ ested Visits Authorized [id number] Closed 01/11/2017 04/12/2018 1 1 NSIC PSYCHIATRIST Reason for Visit Reason Comments Cough Encounter Details Date Type Department Care Team Description 01/11/2017 Hospital Encounter [facility] Ana Milian D yspnea, unspecified type; Care Chest pain, unspecified type; [address] [place] [address] [phone] Social History Tobacco Use Types Packs/Day Years [...] Sign Reading Time Taken Comments Blood Pressure 140/84 01/11/2017 11:22 AM FORENSIC PSYCHIATRIST Pulse 95 01/11/2017 11:22 AM FORENSIC PSYCHIATRIST Temperature 36.9 ??C (98.5 ??F) 01/11/2017 11:22 AM FORENSIC PSYCHIATRIST Respiratory Rate 20 01/11/2017 11:22 AM FORENSIC PSYCHIATRIST Oxygen Saturation 100% 01/11/2017 11:22 AM FORENSIC PSYCHIATRIST Inhaled Oxygen Concentration - - Weight - - Height - - Body Mass Index - - documented in this encounter Medications at Time of Discharge Medication Sig Dispensed Refills Start Date End Date ALBUterol sulfate HFA Inhale 1-2 Puffs 18 g 0 12/02/19 17 108 (90 BASE) MCG/ACT every 4 hours as inhaler needed for Shortness of Breath. levonorgestrel (AKA 1 each by 1 each 0 02/07/201503/11 MIRENA) 20 MCG/24HR Intrauterine route IUDIndications: See Admin Encounter for insertion Instructions. To be of intrauterine administered once contraceptive device every 5 years in clinic office. documented as of this encounter ED Notes Ana Milian MD - 01/11/2017 12:00 PM CST NAME: DESTINI TORREZ MR#: [id number] CSN: [id number] AUTHENTICATING CLINICIAN: Ana Milian MD CONFIRM #: [id number] LOC: 520 URGENT CARE PROGRESS NOTE DATE OF VISIT: 01/11/2017 : 1990 CHIEF COMPLAINT: Cough and sinuses. HPI: This pleasant 26-year-old comes in today complaining of not feeling very well. Patient says for the past 3 weeks she has had chest pressure and shortness of breath. She did not really have a cough withthis until the last couple days when she had a runny nose and a cough develop. She has noticed some mild sinusitis. She denies a history of asthma. There is not a family history of asthma. She does nothave a fever. No recent travel. She does have some mild leg pain bilaterally. She is on the Mirena IUD. The patient denies any drug use or alcohol use. PAST MEDICAL HISTORY: Reviewed through [employer]. PAST SURGICAL HISTORY: Reviewed through [employer]. MEDICATION: Reviewed through [employer]. ALLERGIES: Reviewed through [employer]. OBJECTIVE: VITAL SIGNS: Temperature 98.5, pulse 95, respirations 20, blood pressure 140/84, O2 sats 100% on room air. GENERAL: Alert and oriented. No apparent distress. HEENT: Tympanic membranes: No sign of infection. Sinuses are nontender. Oropharynx is pink and moist. There is some mild clear postnasal drip. LUNGS: Clear. HEART: Regular. ABDOMEN: Soft, nontender. EXTREMITIES: No rash or cyanosis. Albuterol nebulizer treatment was given to the patient and she felt mildly better after that. We diddo an EKG which did show some concern regarding a possible anterior infarct, unknown age. Did speak with Dr. Farmer who is on-call for Cardiology who did agree with this assessment and thought she should be transferred to the emergency room for further evaluation and treatment. ASSESSMENT: 1.Chest pain for 3 weeks. 2.Abnormal electrocardiogram. PLAN: Patient will be transferred to [facility] emergency room. She declined ambulance transfer. She did sign an AMA form. She was given 4 baby aspirin and will be driven over to [facility] emergency room. CHRISTEL:FIOR C: CONFIRM #: [id number] NSIC PSYCHIATRIST documented in this encounter Plan of Treatment Scheduled Orders Name Type Priority Associated Diagnoses Order S chedule XR Chest 2 Views Imaging New Routine Chest pain, unspecified once for 1 Occurrences type starting 2016 until 7 documented as of this encounter Procedures Procedure Name Priority Date/Time Associated Diagnosis Comme nts ECG 12 LEAD Routine 01/11/2017 12:07 PM Results for this INPATIENT FORENSIC PSYCHIATRIST procedure are i n the results section. documented in this encounter Results ECG 12 Lead Inpatient (01/11/2017 12:07 PM FORENSIC PSYCHIATRIST) P athologist Signature Ventricular Rate 75 BPM [facility] Atrial Rate 75 BPM [facility] P-R Interval 150 ms [facility] QRS Duration 86 ms [facility] QT 378 ms [facility] QTc 422 ms [facility] P Mcgraw -11 degrees MUSE [facility] R Mcgraw 32 degrees MUSE [facility] T Mcgraw 23 degrees [facility]USE [facility] Specimen (Source) Anatomical Collection Method Collection Time Re ceived Time Location / / Volume Laterality 01/11/2017 12:07 PM FORENSIC PSYCHIATRIST Narrative [facility] - 01/11/2017 1:24 PM FORENSIC PSYCHIATRIST Sinus rhythm Cannot rule out Anterior infarct (cited on or before 25-FEB-2011) Abnormal ECG When compared with ECG of 25-FEB-2011 11 :19, No significant change was found Confirmed by MALICK FARMER ([id number]), FELIZ Lawrence ([id number]) on 01/11/2017 1:24:39 PM Procedure Note Malick Farmer III, MD / Epic, Interna l Processing - 05/13/2019 Sinus rhythm Cannot rule out Anterior infarct (cited on or before 25-FEB-2011) Abnormal ECG When compared with ECG of 25-FEB-2011 11 :19, No significant change was found Confirmed by MALICK FARMER ([id number]), FELIZ Lawrence ([id number]) on 01/11/2017 1:24:39 PM Ana Milian MD PN ECG ORDERABLES Performing Organization Address City/State/ZIP Code Phon e Number [address] [place] [address] documented in this encounter Visit Diagnoses Diagnosis Dyspnea, unspecified type Chest pain, unspecified type Abnormal EKG Nonspecific abnormal electrocardiogram ( ECG) (EKG) Triage Assessment Note - Duane Olivares, JEFFERSON - 01/11/2017 11:22 AM FORENSIC PSYCHIATRIST Onset 2 weeks ago with lung pain and coughing. Congestion. Sinus pain and pressure. No fever. NSIC PSYCHIATRIST documented in this encounter Administered Medications Inactive Administered Medications - up to 3 most recent administrations Medication Order MAR Action Action Date Dose Rate Site albuterol 2.5 mg/3 mL (0.083%) Given 01/11/2017 12:15 PM FORENSIC PSYCHIATRIST 2.5 mg (PROVENTIL) nebulizer solution 2.5 mg 2.5 mg, Inhalation, ONCE, On Wed01/11/17 at 1215, For 1 dose, Administer VIA RT Nebulization aspirin chewable tablet 324 mg Given 01/11/2017 12:28 PM FORENSIC PSYCHIATRIST 324 mg 324 mg, Oral, ONCE, On Wed01/11/17 at 1245, For 1 dose documented in this encounter Active and Recently Administered Medications Times are shown in FORENSIC PSYCHIATRIST. Scheduled Medication Order 01/09/2017 01/10/2017 01/11/2017 albuterol 2.5 mg/3 mL (0.083%) (PROVENTI L) nebulizer solution 2.5 mg (COMPLETED) 1215 (Given - Provid er: Cher Roger RN) 2.5 mg, Inhalation, ONCE, On Wed 7 at 1215, For 1 dose, Administer VIA RT Nebulization aspirin chewable tablet 324 mg (COMPLETED) 1228 (Given - Provider: Duane Olivares RN) 324 mg, Oral, ONCE, On Wed01/11/17 at 1245, For 1 dose documented in this encounter Care Teams Optician Manager Relationship Specialty Start Date End Date Ana Mehta, BEEF CATTLE SPECIALIST, EDUCATIONAL/DEVELOPMENT ASSISTANT PCP - General 07/11/13 [address] [place] [id number] documented as of this encounter
--- OUTSIDE RECORDS SUMMARY | 2021-11-01 11:30 | XMS_ITS | Encounter Summary ---
:1990 Author Organization [employer] Address [address] [place] [address] Care Team Providers Name Role Phone Ana Mehta APRN, CNP Primary Care Provider [phone] Reason for Visit Reason Comments Foot Pain left foot foreign body Consult/Transfer Care (Routine) - Closed Specialty Diagnoses / Procedures Referred By Contact Refer red To Contact Diagnoses Left foot pain Rosina Garcia, MORIS, CAN CAPPER [address] [place] [address] Referral ID Status Reason Start Date Expiration Date Visits Requ ested Visits Authorized [id number] Closed 07/27/2016 10/26/2017 1 1 Encounter Details Date Type Department Care Team Description 07/28/2016 Surgical Consult [facility] Qasim Jacob Fo reign body (FB) CENTER DPM in soft tissue [address] [facility] [address] [place] [address] (Primary Dx) [place] [address] [phone] Social History Tobacco Use Types Packs/Day Years Used Date Smoking Tobacco: Never Smokeless Tobacco: Never Alcohol Use Standard Drinks/Week Comments Yes 1 (1 standard drink = 0.6 oz pure [...] as of this encounter Patient Instructions Patient InstructionsObinna Mcelroy LPN - 07/28/2016 7:[address] Qasim Jacob DPM Podiatric Medicine & Hat BlockerFilteration Operator, [facility] Software Quality Specialist: Tammy Desir Please call Tammy for all administrative questions at [phone] Nurse: Cherelle De Los Santos RN Please contact Cherelle for all medical questions at [phone] Medication Requests: Prescriptions are not filled on Weekends or on Weekdays after 3:00PM For all medication refills: Request a refill using MyChart or contact your Pharmacy SX scheduled for removal documented in this encounter Progress Notes Qasim Jacob DPM - 07/28/2016 8:07 AM CDT NAME: DESTINI TORREZ MR#: [id number] CSN: [id number] AUTHENTICATING CLINICIAN: Qasim Jacob DPM CONFIRM #: [id number] LOC: 711 CLINIC PROGRESS NOTE DATE OF VISIT: 07/28/2016 : 1990 CHIEF COMPLAINT: Foreign body left foot. HPI: This is an initial clinic visit for this patient who states that approximately 5 days ago she stepped on a piece of broken glass or a dish that had broken. She has retained foreign bodies. [facility] and placed on oral antibiotics just yesterday. The glass was noted on plain radiographs. It is to the lateral plantar aspect of the foot. She states she cannot walk on it because of the pain. VITALS: Height 67 inches. Weight 222 pounds. ALLERGIES: Promethazine. MEDICATIONS: Cephalexin, Flonase. SURGICAL HISTORY: Sinus surgery in 2003. No known problems with anesthetics. 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 Considers her regular work as sedentary physical activity. Patient lives with her fiance. PHYSICAL EXAM: Patient is a well-groomed, pleasant, cooperative 25-year-old female in no acute distress. Pedal pulses are palpable. Neurological status is grossly intact. There is no erythema or edema to the left foot. The integument is warm and dry to palpation. Good capillary refill to all the toes. There is a small scabbed area to the plantar lateral aspect of the left foot at the site of previous foreign body penetration. This area was debrided. Attempt was made to isolate the foreign body but could not be identified. Plain radiographs do reveal retained foreign body and appearance of a shard of glass that is mildly radiopaque. IMPRESSION: Retained foreign body left foot, suspect shard of glass. PLAN: Reviewed physical and radiographic findings with the patient. I did attempt removal in hopes of it being superficial in nature but was unable to retrieve the glass. Therefore, will proceed forward withsurgical intervention for removal of foreign body. The patient is able to walk on her foot otherwisewith the exception of walking on her toes. We did offer the patient crutches this day but she statedshe will wait until after surgery. This was scheduled as an outpatient with MAC anesthesia at [facility]. Discussed potential risks and complications including, but not limited to, non-retrieval with continued pain, infection, painful scar and possible need for further surgery. ANUSHA: C: R:07/28/16 08:28 CONFIRM#:[id number] documented in this encounter Plan of Treatment Scheduled Referrals Name Type Priority Associated Diagnoses Order S chedule Orthopaedic Consult Referral Routine Left foot pain Ordere d: 07/27/2016 Adult/Peds documented as of this encounter Visit Diagnoses Diagnosis Foreign body (FB) in soft tissue - Prima ry Residual foreign body in soft tissue documented in this encounter Care Teams Teachers' Assistant Relationship Specialty Start Date End Date Ana Mehta, OPHTHALMIC TECH, CAN CAPPER PCP - General 07/11/13 [address] [place] [id number] documented as of this encounter
--- OUTSIDE RECORDS SUMMARY | 2021-11-01 11:30 | XMS_ITS | Encounter Summary ---
:1990 Author Organization [facility] Address [address] [place] [address] Care Team Providers Name Role Phone Ana Mehta Beverly SUBRAMANIAN, TANK PUMPER PANELBOARD Primary Care Provider [phone] Reason for Visit Reason Comments Preop Exam DOS 07/30/16, Kamille SAHNI D r. Mazzuca Encounter Details Date Type Department Care Team Description 07/29/2016 Pre-Op Visit [facility] Hui Hamm, Preoper ative examination (Primary Dx); Medicine PA-C Retained foreign body of foot [address] [place] [address] [phone] Social History Tobacco Use Types Packs/Day Years [...] Sign Reading Time Taken Comments Blood Pressure 110/80 07/29/2016 6:22 PM CDT Pulse - - Temperature - - Respiratory Rate - - Oxygen Saturation - - Inhaled Oxygen Concentration - - Weight 101.2 kg (223 lb) 07/29/2016 6:22 PM CDT Height 167.6 cm (5' 6) 07/29/2016 6:22 PM CDT Body Mass Index 35.99 07/29/2016 6:22 PM CDT documented in this encounter OR Notes H&P - Hui Hamm PA-C - 07/29/2016 6:30 PM CDT PREOPERATIVE ASSESSMENT Date of : 1990 Age: 25 y.o. Sex: female Preoperative Evaluation completed by: Hui Hamm PA-C Primary care physician: Ana Mehta APRN, TANK PUMPER PANELBOARD [phone] CHIEF COMPLAINT Pre-Operative Evaluation ANTICIPATED PROCEDURE Pt is having a large piece of glass removed from L foot at [facility] with Dr. Qasim Jacob on 07/30/16. HISTORY OF PRESENT ILLNESS Pt broke a dish and stepped on the glass last . She tried to get the piece out herself and it wouldn't come out so she went into the and they saw a bigger piece on X-ray and sent her to [facility]. She saw Dr. Qasim Jacob on Wednesday and he tried to get it out in the office and couldn't do it sothey needed to go deeper and so she needs to be sedated for that and it is more of a surgical procedure now. Risk Factors/Review of Systems: (Please see flowsheets for details) Cardiovascular risks negative except for: Renal risks negative except for: Neuro risks negative except for: GI risks negative except for: Pulmonary risks negative except for: Endocrine/Nutrition risks negative except for: Hematologic Disease risks negative except for: Musculoskeletal/Skin risks negative except for: Mental Health risks negative except for: Other risk factors negative except for: Complete review of systems is otherwise negative except as noted: above. . Past Medical History: Diagnosis Date ??? Abnormal Pap smear 09/2009 [facility] ??? Anemia ??? Encounter for insertion of intrauterine contraceptive device 02/07/2015 ??? Immunization, other disease ??? Irregular menstrual cycle ??? Pap smear abnormality of cervix ??? Sinusitis ??? Urinary tract infection ??? Varicella Past Surgical History: Procedure Laterality Date ??? NASAL POLYP SURGERY ??? NASAL/SINUS ENDOSCOPY 2005 Endonasal Sinus Surgery ??? PREMALIG/BENIGN SKIN LESION EXCISION Mole removal ??? WISDOM TEETH EXTRACTION Family History Problem Relation Age of Onset ??? Thyroid Disorder Mother ??? High Cholesterol Mother ??? Thyroid Disorder Maternal Grandmother ??? Depression Maternal Grandmother ??? Diabetes Maternal Grandfather ??? High Cholesterol Maternal Grandfather ??? Thyroid Disorder Maternal Grandfather ??? Thyroid Disorder Paternal Grandmother ??? High Cholesterol Father Social History Social History ??? Marital status: Single Spouse name: N/A ??? Number of children: 0 ??? 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 Smoking status: Never Smoker ??? Smokeless tobacco: Never Used ??? Alcohol use 3.6 oz/week 1 Glasses of wine, 5 Standard drinks or equivalent per week Comment: few drinks/week ??? Drug use: No ??? Sexual activity: Yes Partners: Male control/ protection: IUD Other Topics Concern ??? Bike Helmet Yes ??? City Water Yes ??? Exercise No ??? Guns In Home Yes ??? Seat Belt Yes ??? Special Diet No ??? Weight Concern Yes Social History Narrative The patient works full-time. She has a steady boyfriend of 8 years. They have old retrievers. No exercise. Current Outpatient Prescriptions Medication Sig Dispense Refill ??? cephalexin (KEFLEX) 250 MG capsule Take 1 Cap by mouth three times a day for 10 days. 30 Cap 0 ??? fluticasone (AKA FLONASE) 50 MCG/ACT nasal solution Place 2 sprays into each nostril daily (every 24 hours). Dose is for each nostril. 48 g 3 ??? levonorgestrel (AKA MIRENA) 20 MCG/24HR IUD 1 each by Intrauterine route See Admin Instructions.To be administered once every 5 years in clinic office. 1 each 0 No current facility-administered medications for this visit. Allergies Allergen Reactions ??? Promethazine Syncope PHYSICAL EXAMINATION: BP 110/80 Ht 5' 6 (1.676 m) Wt 223 lb (101.2 kg) LMP 07/27/2016 BMI 35.99 kg/m2 General: Patient alert, in NAD. Obese. HEENT: PERRLA. EOMI. Bilateral TM's, external canals normal. Nose: normal mucosa, turbinates, without lesions. Oropharynx normal, normal teeth, gums, tongue, moist mucosa. Skin: Warm, dry, without lesions or rashes noted. Neck: Supple, without thyromegaly, masses or lymphadenopathy. CV: RRR without murmurs, rubs or gallops. Resp: Clear to auscultation b/l without rhonchi, wheezes or rales. Abdomen: Obese, soft, non-tender, without hepatosplenomegaly, masses, or hernias, b/s x 4. Upper extremities: FROM with good strength, without deformities. Lower extremities: FROM, with good strength, without edema, varicosities, or deformity. MS: Normal cervical, thoracic and lumbar spine without deformities, non-tender. Neuro: Normal gait, patellar reflexes 2/4+ b/l, biceps reflexes 2/4+ b/l. Psychiatric: Alert & oriented with normal affect and insight, does not appear depressed or anxious. TEST RESULTS AND DATE EKG done: No Labs done: Yes: date and results: CBC normal, urine hcg is negative. ASSESSMENT 1. Preoperative Assessment: This patient has been examined by me today and has been found to be a suitable candidate for surgery: Yes 2. Foreign body in L foot RECOMMENDATIONS AND PLAN Day of surgery testing: none Medication recommendations: no adjustments needed. Additional screening recommended: no Consult (Cardiology/other): no Additional test results attached: none Beta carrol protocol ordered: no Insulin/Diabetes orders initiated: no Initiate continuous O2 sat monitoring post-op: no Other: no ABOVE RECOMMENDATIONS WERE REVIEWED WITH PATIENT: yes Hui Hamm PA-C 07/29/2016 documented in this encounter Plan of Treatment Not on filedocumented as of this encounter Results Test Screen Urine (07/29/2016 7:02 PM CDT) P athologist Signature Urine Negative PN SOFT Test Specimen Anatomical Collection Method Collection Time Receive d Time (Source) Location / / Volume Laterality Urine specimen 07/29/2016 7:02 PM 017 7:02 (specimen) CDT PM CDT Narrative PN SOFT - 07/29/2016 7:06 PM CDT Performed at [facility] [place] [address] CLIA number [id number] Hui Hamm PA-C LAB_1 Performing Organization Address [facility] Phon e Number PN SOFT [address] [place] [address] [phone] Complete Blood Count-No Diff (07/29/2016 7:01 PM CDT) athologist Signature White Blood Cell 10.8 3.8 - 11.0 PN SOFT Count k/cmm Red Blood Cell 4.72 3.70 - PN SOFT Count 5.20 m/cmm Hemoglobin 14.7 11.8 - PN SOFT 15.5 g/dL Hematocrit 41.4 35.0 - PN SOFT 46.0 % Mean Corpuscular 87.7 80.0 - PN SOFT Volume 100.0 fL RDW 12.4 11.0 - PN SOFT 15.0 % Platelet Count 246 140 - 450 PN SOFT k/cmm Specimen Anatomical Collection Method Collection Time Receive d Time (Source) Location / / Volume Laterality 07/29/2016 7:01 PM 7 7:01 CDT PM CDT Narrative PN SOFT - 07/29/2016 7:03 PM CDT Performed at [facility] [place] [address] CLIA number [id number] Hui Hamm PA-C LAB_1 Performing Organization Address [facility] Phon e Number PN SOFT [address] [place] [address] documented in this encounter Visit Diagnoses Diagnosis Preoperative examination - Primary Preoperative examination, unspecified Retained foreign body of foot Residual foreign body in soft tissue Preoperative examination Preoperative examination, unspecified documented in this encounter Care Teams [employer] Product Leadership Relationship Specialty Start Date End Date Ana Mehta, INTER FOLD ROLL CUTTER, TANK PUMPER PANELBOARD PCP - General 07/11/[address] [place] [address] documented as of this encounter
--- OUTSIDE RECORDS SUMMARY | 2021-11-01 11:30 | XMS_ITS | Encounter Summary ---
:1990 Author Organization [facility] Address [address] [place] [address] Care Team Providers Name Role Phone Leah Styles MD Primary Care Provider Reason for Visit Reason Comments Follow-up Encounter Details Date Type Department Care Team Description 06/12/2013 Office Visit [facility] Ana Mehta Ony chia and Medicine AVIVA SUBRAMANIAN paronychia of toe [address] [address] [address] (Primary Dx) [place] [address] [place], [place] [phone] (Wo rk) Social History Tobacco Use Types Packs/Day Years Used Date Smoking Tobacco: Never Assessed Sex Assigned at Date Recorded Not on file documented as of this encounter Last Filed Vital Signs Vital Sign Reading Time Taken Comments Blood Pressure 120/74 06/12/2013 3:00 PM CDT Pulse 64 06/12/2013 3:00 PM CDT Temperature 36.1 ??C (97 ??F) 06/12/2013 3:00 PM CDT Respiratory Rate - - Oxygen Saturation - - Inhaled Oxygen Concentration - - Weight - - Height - - Body Mass Index - - documented in this encounter Progress Notes Ana Mehta, AVIVA SUBRAMANIAN - 06/12/2013 3:29 PM CDT Destini Torrez [id number] 1990 SUBJECTIVE: DESTINI TORREZ is a 22 y.o. female who presents to the clinic for follow up on cellulitis of the right 4th toe. I initially evaluated the patient on 06/06, at which time she presented with acute erythema, edema, and pain of the fourth metatarsal of the right foot. On exam, the area of maximal erythemawas over the DIPJ without fluctuance or induration. I treated her with IM ceftriaxone at clinic and cephalexin 500 mg q.i.d po x 7 days. The patient states that within one day, the swelling and erythema actually increased, and then a blister formed on the plantars aspect of the third and fourth web space and drained. At this point, the toe is no longer painful. The redness has receded. She denies foot pain, fever, chills, or problems elsewhere. PAST MEDICAL AND SURGICAL HISTORY REVIEWED IN [facility] FAMILY AND SOCIAL HISTORY REVIEWED IN [facility] MEDICATIONS: Outpatient Prescriptions Prior to Visit Medication Sig ??? cephALEXin (KEFLEX) 500 mg capsule Take 1 capsule by mouth 4 times daily for 7 days. ??? ethynodiol-ethinyl estradiol (KELNOR , 28,) 1-35 mg-mcg per tablet Take 1 tablet by mouth daily (every 24 hours). Follow package directions No facility-administered medications prior to visit. ALLERGIES: Promethazine hcl ROS as described above. Other pertinent positives include: as above OBJECTIVE BP 120/74 Pulse 64 Temp(Src) 97 ??F (36.1 ??C) (Oral) LMP 05/22/2013 GENERAL: This is a well-developed, well-nourished female in no acute distress. EXTREMITIES: No edema. Strong and equal peripheral pulses. SKIN: The right fourth toe is non-edematous and dusky pink color on dorsal aspect. Toe is no longer painful. No erythema proximal to ankle joint or streaking up leg. In the webspace of the 3rd and 4th toe, the skin is macerated and a blister has peeled away, revealing dermis. I suspect this is a friction injury and not source of infection. Toenails are not ingrowing and no evidence of injury to nail bed. No foreign bodies identified. PSYCH: Well-oriented. Appropriate mood and affect. ASSESSMENT/PLAN: Onychia and paronychia of toe, resolving - The macerated and peeling skin was pared down with sterile forceps and scissors today. - Reinserted a sterile nonadherent gauze into the webspace. - Advised patient to air out the foot as much as possible when she is home and to keep elevated. - Continue Keflex for entire seven-day course. - If pain, redness, or swelling should recur, advised evaluation immediately. CABRERA Coronel [facility] NB: A voice recognition dictation system was used for this note. Please excuse any typographical errors. documented in this encounter Plan of Treatment Not on filedocumented as of this encounter Visit Diagnoses Diagnosis Onychia and paronychia of toe - Primary documented in this encounter Care Teams Card Lacer Jacquard Relationship Specialty Start Date End Date Leah Styles MD PCP - General 06/07/13 07/10/13 [address] [place] [id number] documented as of this encounter
--- OUTSIDE RECORDS SUMMARY | 2021-11-01 11:30 | XMS_ITS | Encounter Summary ---
:1990 Author Organization [facility] Address [address], [place] [address] Care Team Providers Name Role Phone Mehta, Ana Pual APRN, AVIAV Primary Care Provider [phone] Reason for Visit Reason Comments Cough Encounter Details Date Type Department Care Team Description 03/11/2016 Hospital Encounter [facility] Fracisco Cardenas MD Sinus pain; [address] [address] [address] [place] [address] [place] [address] [phone] (Wo rk) Social History Tobacco Use Types [...] Sign Reading Time Taken Comments Blood Pressure 119/80 03/11/2016 11:37 AM DISTRIBUTION DISTRICT SUPERVISOR Pulse 88 03/11/2016 11:37 AM DISTRIBUTION DISTRICT SUPERVISOR Temperature 36.6 ??C (97.9 ??F) 03/11/2016 11:37 AM DISTRIBUTION DISTRICT SUPERVISOR Respiratory Rate 18 03/11/2016 11:37 AM DISTRIBUTION DISTRICT SUPERVISOR Oxygen Saturation 100% 03/11/2016 11:37 AM DISTRIBUTION DISTRICT SUPERVISOR Inhaled Oxygen Concentration - - Weight - - Height - - Body Mass Index - - documented in this encounter Medications at Time of Discharge Medication Sig Dispensed Refills Start Date End Date fluticasone (AKA FLONASE) Place 2 sprays into 48 g 3 1 50 MCG/ACT nasal solution each nostril daily (every 24 hours). Dose is for each nostril. amoxicillin-clavulanate Take 1 Tab by mouth 14 Tab 0 03/18/2016 (AUGMENTIN) 875-125 mg per two times a day for tablet 7 days. levonorgestrel (AKA 1 each by 1 each 0 02/07/201503/11 MIRENA) 20 MCG/24HR Intrauterine route IUDIndications: Encounter See Admin for insertion of Instructions. To be intrauterine contraceptive administered once device every 5 years in clinic office. methylPREDNISolone (MEDROL Follow package 21 Tab 0 03/1107/27/2016 21 TABLET DOSEPACK) 4 MG directions tablet Pseudoephedrine-Ibuprofen 0 07/27/2016 (ADVIL COLD/SINUS OR) documented as of this encounter ED Notes Fracisco Cardenas MD - 03/11/2016 12:04 PM CST NAME: DESTINI TORREZ MR#: [id number] CSN: [id number] AUTHENTICATING CLINICIAN: Fracisco Cardenas MD CONFIRM #: [id number] LOC: 520 URGENT CARE PROGRESS NOTE DATE OF VISIT: 03/11/2016 : 1990 SUBJECTIVE: A 25-year-old female. She is coming today to the clinic. She complained about cough, congestion, sinus pressure, and discomfort in her right side. It is going on duration of 2 days. Accordingto the patient, she had history of chronic sinusitis in the past. She did have a polypectomy, and she is on Flonase. Since that, her sinus is getting less, but lately started some discomfort. She denied that she has environmental allergy or medication allergy with the exception of promethazine. OBJECTIVE: VITAL SIGNS: Blood pressure 119/80. Her pulse is 88, respiration 18. O2 saturation 100%. Her temperature is 97.9. Alert, oriented. She does not seem to be distressed, but congested. Both ears clear with a little bit some wax. Nose: Polyps, I think, are present on the right side, but the left side is clear, open. She feels pressure in her sinuses that has been only 2 days. Oral cavity, pharynx, uvula normal with the exception of postnasal drip. NECK: No enlarged lymph nodes. LUNGS: Clear. ASSESSMENT: Sinus pressure and congestion. PLAN: We discussed the risk and the benefits of the medication. I think she agreed. We will start with prednisone. If the prednisone does not help with the symptoms, if the symptoms get worse, develops fever, or not resolved within a week to 10 days, she will start the antibiotic. Documented that is given to her. YO:MEDQ C: CONFIRM #: [id number] RIBUTION DISTRICT SUPERVISOR documented in this encounter Plan of Treatment Not on filedocumented as of this encounter Visit Diagnoses Diagnosis Sinus pain Other diseases of nasal cavity and sinus es Nasal polyps Unspecified nasal polyp Triage Assessment Note - Mariana Patiño RN - 03/11/2016 11:35 AM CST Pt c/o cough, congestions, and sinus pressure, onset x 5 days. RIBUTION DISTRICT SUPERVISOR documented in this encounter Care Teams Industrial/Organizational Psychologist Relationship Specialty Start Date End Date Ana Mehta APRN, EMT B PCP - General 07/11/13 [address] [place] [id number] documented as of this encounter
--- OUTSIDE RECORDS SUMMARY | 2021-11-01 11:30 | XMS_ITS | Encounter Summary ---
:1990 Author Organization [employer] Address [address] [place] [address] Care Team Providers Name Role Phone Leah Styles MD Primary Care Provider Reason for Visit Reason Comments Toe Pain Encounter Details Date Type Department Care Team Description 06/27/2013 Hospital Encounter [facility], Cell ulitis and Care Patricia Clark MD abscess (Primary Dx) [address] [place] [address] [phone] Social History Tobacco Use Types Packs/Day Years Used Date Smoking Tobacco: Never Assessed Sex Assigned at Date Recorded Not on file documented as of this encounter Last Filed Vital Signs Vital Sign Reading Time Taken Comments Blood Pressure 112/78 06/27/2013 9:18 AM CDT Pulse 64 06/27/2013 9:18 AM CDT Temperature 36.8 ??C (98.2 ??F) 06/27/2013 9:18 AM CDT Respiratory Rate 16 06/27/2013 9:18 AM CDT Oxygen Saturation - - Inhaled Oxygen Concentration - - Weight - - Height - - Body Mass Index - - documented in this encounter Medications at Time of Discharge Medication Sig Dispensed Refills Start Date End Date cephALEXin (AKA KEFLEX) Take 1 capsule by 28 capsule 0 06/0607/13/2013 500 MG mouth 4 times daily capsuleIndications: for 7 days. Onychia and paronychia of toe clindamycin (aka Take 3 capsules by 90 capsule 0 06/27/2013 07/07/2013 CLEOCIN) capsule mouth 3 times daily for 10 days. ethynodiol diac-eth Take 1 tablet by 84 tablet 4 11/10/2012 01/05/2014 estradiol (AKA KELNOR) mouth daily (every 1-35 MG-MCG 24 hours). Follow tabletIndications: package directions Routine gynecological examination documented as of this encounter Progress Notes Starr Chilel RN - 06/27/2013 10:48 AM CDT Quick Note: Spoke to pt, she says her wound is starting to look better. She verbally understands results, will finish entire course of abx. She also says she will f/u with PMD as recommended and return to clinic if wound worsens or is persistent. Starr Chilel RN - 06/27/2013 10:48 AM CDT Quick Note: On Clindamycin. Awaiting final. documented in this encounter ED Notes Patricia Mak - 06/27/2013 3:39 PM CDT ED Provider Notes signed by Patricia Mak MD at 07/06/13908 Author: Patricia Mak MD Service: (none) Author Type: Physician Filed: 07/06/1309 Note Time: 06/27/131857 Status: Signed Elementary Reading Specialist: Patricia Mak MD (Physician) NAME: DESTINI TORREZ MR#: [id number] CSN: [id number] AUTHENTICATING CLINICIAN: Patricia Mak MD CONFIRM #: [id number] LOC: 520 URGENT CARE PROGRESS NOTE DATE OF VISIT: 06/27/2013 : 1990 This 22-year-old woman presents with recurrent redness, swelling, and pain of the right 4th toe. Thepatient was seen a few weeks ago for cellulitis of the right 4th toe, treated with Keflex and Rocephin. Her symptoms overall resolved. She noticed that she developed a vesicle around the plantar aspectof the 4th toe and some peeling skin in between. She did have a little bit of purulent drainage fromthis area over the past day or 2. She has had no fevers, chills, sweats, and she had no injury or trauma. Does not get pedicures. PAST MEDICAL HISTORY: Reviewed. MEDICATIONS: Reviewed. ALLERGIES: Reviewed. SOCIAL HISTORY: Reviewed. FAMILY HISTORY: Reviewed. OBJECTIVE: BP 112/78, P 64, R 16, T 98.2. This patient is well appearing, in no distress. The right 4th toe is red and edematous. There is some redness and warmth extending a [address] up the dorsum of the foot. This is outlined with a pen. Along the plantar aspect of the toe she has some peeling skin. There also is deep seeded vesicular lesion. After verbal consent was obtained, I used 1 mL 1% lidocaine and made a small incision here. There was a small amount of purulent fluid, which was expressed but mostly the area bled. 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 The possibilities could for this could be a partially treated small abscess on the plantar aspect of the toe versus MRSA. I did note that she was treated with oral antibiotics for 7 days and not 10, this may also be a contributing factor to the recurrence of this. Rocephin 1 g IM. Treat with clindamycin 450 t.i.d. for 10 days. This should cover MSSA and MRSA. I diddo a wound culture, however, a very small amount of purulent fluid was expressed and I am not sure if this will grow anything. She should recheck in 24 hours. If symptoms acutely worsen in the meantime, we should recheck sooner. SMS:MEDQ C: CONFIRM #: [id number] Tree Stroud RN - 06/27/2013 10:48 AM CDT Pt denies s/s of allergic reaction after IM Rocephin. documented in this encounter Miscellaneous Notes Miscellaneous - 06/27/2013 10:48 AM CDTNotes Recorded by Starr Chilel RN on 06/29/2013 at 4:08 PMSpoke to pt, she says her wound is starting to look better. She verbally understands results, will finish entire course of abx. She also says she will f/u with PMD as recommended and return to clinic if wound worsens or is persistent.------Notes Recorded by Tee Wagoner MD on 06/29/2013 at 2:04 PMTell patient culture didn't grow out anything specific--recheck as per the clinicians who saw her, and right away if not improving quickly and completely-WPriyaL.------Notes Recorded by Starr Chilel RN on 06/28/2013 at 9:36 AM On Clindamycin. Awaiting final. Medication History - Gaurav Martinez MD - 06/27/2013 10:48 AM CDT INPATIENT MEDS Encounter Date: 06/27/13 clindamycin (CLEOCIN) 150 mg capsule Start Date:06/27/13, End Date:07/07/13, Frequency:3 TIMES DAILY *No Administrations Recorded cefTRIAXone (ROCEPHIN) injection 1 g Start Date:06/27/13, End Date:06/27/13, Frequency:ONCE Taken Dose Action User Route Site Recorded Comment Reason 06/27/13 1027 1 g Given Tree Stroud RN Intramuscular Left Ventrogluteal 06/27/13 1028 s/s of allergic rxn discussed. Pt verbalized understanding. - clindamycin (CLEOCIN) 150 mg capsule Start Date:06/27/13, End Date:06/27/13, Frequency:3 TIMES DAILY *No Administrations Recorded documented in this encounter Plan of Treatment Not on filedocumented as of this encounter Procedures Procedure Name Priority Date/Time Associated Diagnosis Comme nts WOUND CULTURE STAT 06/27/2013 10:16 AM Cellulitis and Resul ts for this (AEROBIC) AND GRAM CDT abscess procedure are in STAIN the results section. documented in this encounter Results (ABNORMAL) WOUND CULTURE (AEROBIC) AND GRAM STAIN (06/27/2013 10:16 AM CDT) [facility] Method Time Signature Source Abdomen HP CONVERSION Site HP CONVERSION Wound Culture Mixed bacteria HP CONVERSI ON resembling skin stu. Moderate growth Gram Stain No WBC's (A) HP CONVERSION Gram Stain Rare gram HP CONVERSION positive cocci (A) Specimen (Source) Anatomical Collection Method Collection Time Re ceived Time Location / / Volume Laterality Abdomen: 06/27/2013 10:16 AM CDT Transcriptions 06/27/2013 10:48 AM CDTNotes Recorded by Starr Chilel RN on 06/29/2013 at 4:08 PMSpoke to pt, she says her wound is starting to look better. She verbally understands results, will fi rosaura entire course of abx. She also says she will f/u with PMD as recommended and return to clinic if wound worsens or is persistent.------Notes Recorded by Tee Wagoner MD on 06/29/2013 at 2:04 PM Tell patient culture didn't grow out any thing specific--recheck as per the clinicians who saw her, and right away if not improving quickly and completely-W.L.------Notes Recorded by Starr Chilel RN on 06/28/2013 at 9:36 AM On Clindamycin. Awaiting final. Patricia Mak MD LAB_1 Performing Organization Address City/State/ZIP Code Phon e Number HP CONVERSION documented in this encounter Visit Diagnoses Diagnosis Cellulitis and abscess - Primary Cellulitis and abscess of unspecified si te Triage Assessment Note - Mariana Patiño RN - 06/27/2013 9:18 AM CDT Pt c/o right swollen 4th toe, onset last night. Pt states this happened about 3 weeks ago and lasted1 week. documented in this encounter Care Teams Screw Machine Repairer Relationship Specialty Start Date End Date Leah Styles MD PCP - General 06/07/13 07/10/13 [address] [place] [address] documented as of this encounter
--- OUTSIDE RECORDS SUMMARY | 2021-11-01 11:30 | XMS_ITS | Encounter Summary ---
:1990 Author Organization [facility] Address [address] [place] [address] Care Team Providers Name Role Phone Ana Mehta APRN, CNP Primary Care Provider [phone] Reason for Visit Reason Comments Return Call Encounter Details Date Type Department Care Team Description 08/09/2013 Telephone [facility] Qasim Jacob DPM Return Call [address] [facility] [address] [facility] [place] [address] [place] [address] [phone] (Wo rk) Social History Tobacco Use Types Packs/Day Years Used Date Smoking Tobacco: Never Assessed Sex Assigned at Date Recorded Not on file documented as of this encounter Nursing Notes Qasim Jacob DPM - 08/09/2013 8:52 AM CDT Discussed treatment with hand lotion, drying of toes and use of lamisil as directed by Dr. Vega in derm. If no resolution in 2-3 weeks should be seen in derm. Pt. relates understanding. documented in this encounter Plan of Treatment Not on filedocumented as of this encounter Visit Diagnoses Not on filedocumented in this encounter Care Teams Mixer Operator Raw Salt Relationship Specialty Start Date End Date Mehta, Ana C, SPRAY PAINTER, RUG DYER HELPER PCP - General 07/11/13 [address] [place] [address] documented as of this encounter
--- OUTSIDE RECORDS SUMMARY | 2021-11-01 11:30 | XMS_ITS | Encounter Summary ---
:1990 Author Organization [employer] Address [address] [place] [address] Care Team Providers Name Role Phone Leah Styles MD Primary Care Provider Reason for Visit Reason Comments Other Encounter Details Date Type Department Care Team Description 06/28/2013 Hospital Encounter [facility] Pablo Serna (Primary Dx); Care SMELVIN Abscess [address] [facility] [address] [place] [address] E [phone] [place] [address] Social History Tobacco Use Types Packs/Day Years Used Date Smoking Tobacco: Never Assessed Sex Assigned at Date Recorded Not on file documented as of this encounter Last Filed Vital Signs Vital Sign Reading Time Taken Comments Blood Pressure 125/89 06/28/2013 10:33 AM CDT Pulse 78 06/28/2013 10:33 AM CDT Temperature 36.7 ??C (98.1 ??F) 06/28/2013 10:33 AM CDT Respiratory Rate 16 06/28/2013 10:33 AM CDT Oxygen Saturation - - Inhaled [...] gynecological examination documented as of this encounter ED Notes Yoko Shaw RN - 06/28/2013 11:20 AM CDT No adverse reaction to injection. discharged home. Pablo Serna PA-C - 06/28/2013 10:52 AM CDT ED Provider Notes signed by Pablo Serna PA-C at 06/28/13 1528 Author: Pablo Serna PA-C Service: (none) Author Type: Physician Fitter Mechanic Filed: 06/28/13 1528 Note Time: 06/28/13 1233 Status: Signed Supervisor Drying And Softening: Pablo Serna PA-C (Physician Fitter Mechanic) NAME: DESTINI TORREZ MR#: [id number] CSN: [id number] AUTHENTICATING CLINICIAN: Pablo Serna PA-C CONFIRM #: [id number] LOC: 3620 URGENT CARE PROGRESS NOTE DATE OF VISIT: 06/28/2013 : 1990 SUBJECTIVE: This is a 22-year-old female who presents to clinic today for a recheck. Patient was in our clinic yesterday and diagnosed with cellulitis and an abscess on her right 4th toe. The patient states she was initially diagnosed with an abscess June 06. At that time she was placed on Keflex 1 capsule 4 times daily for 7 days. She states the abscess was almost fully healed when it did start reoccurring yesterday. Patient has not noticed any exudate from the site. She states it was marked in the clinic with a Sharpie yesterday. She states last night it seemed to have grown past those lines. Her mom did remark the margins with a Sharpie. She states when she woke up this morning her pain was much improved. The margins have reduced and retreated from the Sharpie fadi that her mom made last night. She denies fever or flu-like symptoms. She continues to notice no exudate from the site. She is soaking her foot several times daily. ALLERGIES: Per Epic. MEDICATIONS: Per Epic. PAST MEDICAL HISTORY: Includes recent history of cellulitis and abscess to the right 4th toe. SOCIAL HISTORY: She is a nonsmoker. Not exposed to tobacco in the home. OBJECTIVE: VITAL SIGNS: Temp 36.7, pulse 78, respirations are 16, blood pressure 125/89. This is a 22-year-old, well-developed, well-nourished female in no acute distress. She is alert and oriented to person, place, and time. Head is normocephalic, atraumatic. LUNGS: Clear to auscultation in all hwang. No wheezes, rales, or rhonchi. HEART: Regular rate and rhythm. No murmurs, rubs, or gallops. The patient's right 4th toe reveals mild erythema and edema. There is no warmth to the touch. The redness that was present yesterday has faded and is retreating from the margin lines that were drawn yesterday. There is no associated lymphadenopathy. ASSESSMENT: 1. Cellulitis. 2. Abscess. PLAN: The patient was given another injection of Rocephin 1 g IM while in the clinic. She will continue onher clindamycin. She will continue to soak her foot several times daily. She will follow up with herprimary provider for any further recheck. She was advised if her pain worsened, if redness or streaking went up her leg or she developed fever, she should return to our urgent care. The patient was comfortable with this plan. She was discharged from clinic in stable condition. SSK:FIOR C: CONFIRM #: [id number] documented in this encounter Miscellaneous Notes Medication History - Gaurav Martinez MD - 06/28/2013 11:21 AM CDT INPATIENT MEDS Encounter Date: 06/28/13 cefTRIAXone (ROCEPHIN) injection 1 g Start Date:06/28/13, End Date:06/28/13, Frequency:ONCE Taken Dose Action User Route Site Recorded Comment Reason 06/28/13 1055 1 g Given Aisha Jimenez RN Intramuscular Right Ventrogluteal 06/28/13 1056 - - documented in this encounter Plan of Treatment Not on filedocumented as of this encounter Visit Diagnoses Diagnosis Cellulitis - Primary Cellulitis and abscess of unspecified si te Abscess Cellulitis and abscess of unspecified si te Triage Assessment Note - Tree Stroud RN - 06/28/2013 10:32 AM CDT here for a recheck of right 2nd toe infection-seems a little better today per pt documented in this encounter Care Teams Consolidation Accountant Relationship Specialty Start Date End Date Leah Styles MD PCP - General 06/07/13 07/10/13 [address] [place] [address] documented as of this encounter
--- OUTSIDE RECORDS SUMMARY | 2021-11-01 11:30 | XMS_ITS | Encounter Summary ---
:1990 Author Organization [employer] Address [address] [place] [address] Care Team Providers Name Role Phone Ana Mehta APRN, AVIVA Primary Care Provider [phone] Reason for Referral Procedure/Equipment (Routine) - Incomplete Specialty Diagnoses / Procedures Referred By Contact Refer red To Contact Diagnoses Foreign body (FB) in soft tissue Qasim Jacob DPM Procedures Shoes [address] [place] [address] Referral ID Status Reason Start Date Expiration Date Visits V isits Requested Authorized [id number] Incomplete 07/30/2016 10/29/2017 1 1 Procedure/Equipment (Routine) - Incomplete Specialty Diagnoses / Procedures Referred By Contact Refer red To Contact Diagnoses Foreign body (FB) in soft tissue Qasim Jacob DPM Procedures Crutches - Special [address] [place] [address] Referral ID Status Reason Start Date Expiration Date Visits V isits Requested Authorized [id number] Incomplete 07/30/2016 10/29/2017 1 1 Encounter Details Date Type Department Care Team Description 07/30/2016 [facility] Urszulalukas, Qasim W, Fore ign body (FB) Encounter [facility] DPM in soft tissue [address] [facility] [place] [address] [facility] (Primary Dx) [place], [place] [address] [place], [place] [phone] Social History Tobacco Use Types Packs/Day Years [...] Sign Reading Time Taken Comments Blood Pressure 112/68 07/30/2016 11:22 AM CDT Pulse 86 07/30/2016 11:22 AM CDT Temperature 36.9 ??C (98.5 ??F) 07/30/2016 11:50 AM CDT Respiratory Rate 16 07/30/2016 11:22 AM CDT Oxygen Saturation 100% 07/30/2016 11:22 AM CDT Inhaled Oxygen Concentration - - Weight 99.8 kg (220 lb) 07/30/2016 9:21 AM CDT Height 170.2 cm (5' 7) 07/30/2016 9:21 AM CDT Body Mass Index 34.46 07/30/2016 9:21 AM CDT documented in this encounter Discharge Instructions Discharge InstructionsTarik Block RN - 07/30/2016 10:46 AM CDT Discharge Information The following was provided to the patient - Instruction sets: Caring for yourself after Foot and Ankle Surgery Collateral information: How to prevent and treat constipation after surgery Medication counseling Recover Well Understanding Pain Patient take-homes: Bunion shoe documented in this encounter Medications at Time of Discharge Medication Sig Dispensed Refills Start Date End Date fluticasone (AKA Place 2 sprays into 48 g 3 02/13/2015 FLONASE) 50 MCG/ACT each nostril daily nasal solution (every 24 hours). Dose is for each nostril. cephalexin (KEFLEX) 250 Take 1 Cap by mouth 30 Cap 0 01/201708/06/2016 MG capsule three times a day for 10 days. HYDROcodone-acetaminophe Take 1-2 Tabs by 10 Tab 0 07/3012/01/2016 n (NORCO) 5-325 MG mouth every 4 hours tablet as needed for Pain. levonorgestrel (AKA 1 each by 1 each 0 02/07/201503/11 MIRENA) 20 MCG/24HR Intrauterine route IUDIndications: See Admin Encounter for insertion Instructions. To be of intrauterine administered once contraceptive device every 5 years in clinic office. documented as of this encounter Procedure Notes Qasim Jacob DPM - 07/30/2016 11:50 AM CDT NAME: DESTINI [place] MR#: [id number] CSN: [id number] AUTHENTICATING CLINICIAN: Qasim Jacob DPM CONFIRM #: [id number] LOC: 725 OPERATIVE REPORT DATE OF OPERATION: 07/30/2016 : 1990 SURGEON: Qasim Jacob DPM COMBINATION MACHINE TENDER: Kobe Salmon NP (Kobe Salmon was present to assist with positioning, the block and the surgical procedure itself since a qualified resident was not available). AGE: 25 SEX: Female PREOPERATIVE DIAGNOSIS: Deep retained foreign body left foot. POSTOPERATIVE DIAGNOSIS: Deep retained foreign body left foot consistent with a large shard of glass. PROCEDURE PERFORMED: Removal of retained foreign body left foot. FINDINGS: Large shard of glass plantar aspect left foot. OPERATIVE INDICATIONS: This 25-year-old female, several days ago had stepped on a shard of glass from a broken plate. Attempt was made with urgent care as well as by myself to remove the shard of glass in clinic, but was unable to retrieve. Therefore, the patient elected to proceed forward with surgical intervention since she was able to walk due to the pain. ANESTHESIA: MAC. OPERATION: Patient was transported from the preoperative holding area to the operatory suite and placed in supine position. All monitors were placed. Patient's vitals were monitored throughout the case per anesthesia. After successful IV sedation and appropriate fnkzz-igm-ubl-cause for surgical site identification, attention was directed to the left foot at which time approximately 7 mL of 0.25% Sensorcaine plain was utilized to perform a proximal field block to the plantar and lateral aspect of left foot. This was proximal to the puncture site. The left foot was then prepped and draped in the usual aseptic manner. A left ankle tourniquet was applied as well as the patient was given 2 grams of Ancef IV piggyback preoperatively. After appropriate xgeqo-zhb-nxz-cause for surgical site identification once again, the left ankle tourniquet was elevated to 200 mmHg once the left foot was exsanguinated utilizing a José Antonio's bandage. Attention was then directed to the puncture site at which time this was gently debrided and then probed. When probed deeply through the puncture wound, the glass was palpable with a Antigo hemostat. I was able to grab a hold of the piece of glass and was able to retrieve it fully without fracturing theglass. The wound was copiously irrigated with sterile saline. A C-arm fluoroscopic image was taken since the glass was radiopaque enough to be seen on the preoperative radiographs. There was no furtherretained foreign body. The glass was not sent to pathology as a specimen since it was clearly a piece of glass. I did not apply any suture and left the small wound open to allow it to drain if need be. Gauze and Kerlix dressing was placed. Patient left the operatory suite with all vital signs stable, in good condition and tolerated all procedures well. All counts were correct. After 2 days' time the patient may remove her dressing and apply a Band-Aid and some bacitracin ointment. After several days will no longer need to do this. Patient can ambulate on her left foot as comfortable. Patient does not need to return for postoperative clinic visits unless having any discomfort or complication. ANUSHA:JAK C: R:07/30/16 11:36 CONFIRM#:[id number] Qasim Jacob DPM - 07/30/2016 10:31 AM CDT TRIA Brief Operative Progress Note Surgery Date: 07/30/2016 Surgeon(s) and Role: * Qasim Jacob DPM - Primary Pre-op Diagnosis: * Foot pain [M79.673] Post-op Diagnosis: * Foot pain [M79.673] Procedure(s) (LRB): Removal Foreign Body Left Foot (Left) EBL: 1cc Specimens: ID Type Source Tests Collected by Time Destination A : Qasim Jacob DPM 07/30/2016 1018 Pathology Complications / Findings: None/ large shard of glass left foot Qasim Jacob DPM documented in this encounter OR Notes H&P - Qasim Jacob DPM - 07/30/2016 9:37 AM CDT Patient relates no changes in health status since recent H&P. documented in this encounter Plan of Treatment Scheduled Orders Name Type Priority Associated Diagnoses Order S chedule POCT Glucose: Point of Care Routine Once today st arting now for 1 Occurrences s tarting 07/30/2016 unti l 07/30/2016 documented as of this encounter Procedures Procedure Name Priority Date/Time Associated Diagnosis Comme nts REMOVAL FOREIGN BODY 07/30/2016 9:46 AM CDT Foot pain FOOT documented in this encounter Visit Diagnoses Diagnosis Foreign body (FB) in soft tissue - Prima ry Residual foreign body in soft tissue documented in this encounter Administered Medications Inactive Administered Medications - up to 3 most recent administrations Medication Order MAR Action Action Date Dose Rate Site bupivacaine 0.25% (PF) Given 07/30/2016 10:08 AM CDT 4 mL Left Foot (SENSORCAINE) injection ONCE PRN, Starting on Stephania 07/30/16 at 1007, Until Stephania 07/30/16 at 1400, Intra-op Given 07/30/2016 9:51 AM CDT 7 mL Left Foot lactated ringers infusion Started 07/30/2016 9:40 AM CDT Intravenous, at 30 mL/hr, CONTINUOUS, Starting on Stephania 07/30/16 at 0930, Pre-op documented in this encounter Active and Recently Administered Medications Times are shown in CDT. Scheduled Medication Order 07/28/2016 07/29/2016 07/30/2016 ceFAZolin (aka ANCEF) 2 g in dextrose 100 ml IVPB (COMPLETED) 0942 (Given - Provider: Aisha Bryant APRN, ARMOR RECONNAISSANCE VEHICLE DRIVER) 2 g, Intravenous, at 200 mL/hr, ONCE, Th u 07/30/16 at 0930, For 1 dose, Infuse within 60 minutes prior to incision; Re-dose 1 gram IV every 4 hours after initial dose until incision closed., Pre-op fentaNYL (SUBLIMAZE) injection 25-50 mcg 0930 (Due) 25-50 mcg, Intravenous, ONCE, Stephania 7 at 0930, For 1 dose, Notify Anesthesiologist if total cumulative dose in excess of 250 mcg., Pre-op midazolam (VERSED) injection 1-2 mg 30 (Due) 1-2 mg, Intravenous, ONCE, Stephania 07/30/16 at 0930, For 1 dose, Pre- op Continuous Medication Order 07/28/2016 07/29/2016 07/30/2016 lactated ringers infusion 0940 ( Started - Provider: Aisha Bryant APRN, ARMOR RECONNAISSANCE VEHICLE DRIVER)1024 (Anesthesia Fluid - Provider: Aisha Bryant APRN, WYATT) Intravenous, at 30 mL/hr, CONTINUOUS, Starting Stephania 07/30/16 at 09 30, Pre-op PRN Medication Order 07/28/2016 07/29/2016 07/30/2016 bupivacaine 0.25% (PF) (SENSORCAINE) injection 0951 (Given - Provider: Kobe Salmon APRN, BORE MINER OPERATOR)1008 (Given - Provider: Qasim Jacob DPM) ONCE PRN, Starting Stephania 07/30/16 at 1007, Intra-op fentaNYL (SUBLIMAZE) injection 25-50 mcg 25-50 mcg, Intravenous, [id number], Other, Moderate to Severe Pain (pain score 5 and above) in the immediate postop period when faster on-set, short acting agent is desired., Starting Stephania 07/30/16 at 0902, Administer every 5 minutes as needed, t o a maximum cumulative dose of 250 mcg. For patients with a regional, spinal, or local anesthetic, may give for anticipated pain as the anesthetic wears off., PACU/Recovery HYDROmorphone injectable 0.2-0.4 mg 0.2-0.4 mg, Intravenous, Q10MIN PRN, Oth er, : Moderate to Severe Pain (pain score 5 and above) in the immediate postop period when longer acting agent is desired., Starting Stephania 07/30/16 at 0902, Maximum cumulative dose is 2 mg. For patients wi th a regional, spinal, or local anesthetic, may give for anticipated pain as the anesthetic wears off., PACU/Recovery meperidine (DEMEROL) injection 12.5 mg 12.5 mg, Intravenous, [id number], Shiverin g, Starting Stephania 07/30/16 at 0902, For 2 doses, Maximum cumulative dose is 25 mg. Do not give to patients receiving MAO inhibitors (e.g. phenelzine (NARDIL), tranyl cypromine (PARNATE), selegiline (ELDEPRYL))., PACU/Recovery morphine injectable 1-3 mg 1-3 mg, Intravenous, [id number], Other, Mo derate to Severe Pain (pain score 5 and above) Moderate to Severe Pain (pain score 5 and above) in the immediate postop period when longer acting agent is desired and HYDROmorphone is not tolerated., St arting Stephania 07/30/16 at 0902, Maximum cumulative dose is 12 mg. For patients with a regional, spinal, or local anesthetic, may give for anticipated pain as the anesthetic wears off., PACU/Recovery ondansetron (ZOFRAN) injection 4 mg 4 mg, Intravenous, Q4H PRN, Nausea, Vomi ting, Starting Stephania 07/30/16 at 0902, If multiple medications are ordered for nausea or vomiting - administer in the following priority based on medications ordered , effectiveness and availability: ondans etron (ZOFRAN) > prochlorPERAZINE (COMPAZINE) > diphenhydrAMINE (BENADRYL) > hydrOXYzine HCl (VISTARIL)> ePHEDrine > scopolamine (TRANSDERM-SCOP)., PACU/Recovery documented in this encounter Care Teams Radiology Supervisor Relationship Specialty Start Date End Date Ana Mehta, MORIS, BORE MINER OPERATOR PCP - General 07/11/13 [address] [place] [id number] documented as of this encounter
--- OUTSIDE RECORDS SUMMARY | 2021-11-01 11:30 | XMS_ITS | Encounter Summary ---
:1990 Author Organization [employer] Address [address] [place] [address] Care Team Providers Name Role Phone Ana Mehta APRN, CNP Primary Care Provider [phone] Encounter Details Date Type Department Care Team Description 07/18/2013 Hospital Encounter [facility] [address] [facility] [place], [place] [address] Social History Tobacco Use Types Packs/Day Years Used Date Smoking Tobacco: Never Assessed Sex Assigned at Date Recorded Not on file documented as of this encounter Medications at Time of Discharge Medication Sig Dispensed Refills Start Date End Date cephALEXin (AKA KEFLEX) Take 1 capsule by 40 capsule 0 07/1807/28/2013 500 MG mouth 4 times daily capsuleIndications: for 10 days. Onychia and paronychia of toe ethynodiol diac-eth Take 1 tablet by 84 tablet 4 11/10/2012 01/05/2014 estradiol (AKA KELNOR) mouth daily (every 1-35 MG-MCG 24 hours). Follow tabletIndications: package directions Routine gynecological examination documented as of this encounter Plan of Treatment Not on filedocumented as of this encounter Visit Diagnoses Not on filedocumented in this encounter Care Teams Sales Management Trainee Relationship Specialty Start Date End Date Ana Mehta APRN, GRAPHIC DESIGN PROFESSOR PCP - General 07/11/[address] [place] [address] documented as of this encounter
--- OUTSIDE RECORDS SUMMARY | 2021-11-01 11:30 | XMS_ITS | Encounter Summary ---
:1990 Author Organization [employer] Address [address] [place] [address] Care Team Providers Name Role Phone Ana Mehta APRN, AVIVA Primary Care Provider [phone] Encounter Details Date Type Department Care Team Description 07/29/2016 Lab Visit [facility] Preoperative examination [id number] [place], [place] [phone] Social History Tobacco Use Types Packs/Day Years [...] Name Priority Date/Time Associated Diagnosis Comme nts TEST Routine 07/29/2016 7:02 PM Preoperative Results for this (URINE) CDT examination procedure are i n the results section. COMPLETE BLOOD Routine 07/29/2016 7:01 PM Preoperative Results for this COUNT-NO DIFF CDT examination procedure are in the results section. documented in this encounter Results Test Screen Urine (07/29/2016 7:02 PM CDT) athologist Signature Urine Negative PN SOFT Test Specimen Anatomical Collection Method Collection Time Receive d Time (Source) Location / / Volume Laterality Urine specimen 07/29/2016 7:02 PM 017 7:02 (specimen) CDT PM CDT Narrative PN SOFT - 07/29/2016 7:06 PM CDT Performed at [facility], [facility] [place] [address] CLIA number [id number] Hui Hamm PA-C LAB_1 Performing Organization Address City/[facility] Phon e Number PN SOFT [address] [place] [address] Complete Blood Count-No Diff (07/29/2016 7:01 PM [...] - 07/29/2016 7:03 PM CDT Performed at [facility], [facility] [address] [place] [address] CLIA number [id number] Hui Hamm PA-C LAB_1 Performing Organization Address City/[facility] Phon e Number PN SOFT [address] [place] [address] documented in this encounter Visit Diagnoses Diagnosis Preoperative examination Preoperative examination, unspecified documented in this encounter Care Teams Java Lead Relationship Specialty Start Date End Date Ana Mehta, INDUSTRIAL RETROFIT DESIGNER, INCIDENT RESPONSE SPECIALIST PCP - General 07/11/13 [address] [place] [id number] documented as of this encounter
--- OUTSIDE RECORDS SUMMARY | 2021-11-01 11:30 | XMS_ITS | Encounter Summary ---
:1990 Author Organization [employer] Address [address] [place] [address] Care Team Providers Name Role Phone Ana Mehta APRN, CNP Primary Care Provider [phone] Reason for Visit Reason Comments Annual Exam Encounter Details Date Type Department Care Team Description 01/05/2014 Office Visit [place] Aisha Rust, Routine associate account director ecological examination (Primary Dx); Obstetrics/Gynecolog AVIVA SUBRAMANIAN Unspecified contraceptive management; y [address] [place] vaginitis; [address] [address] [place], [place] Nasal polyps; [place] [address] Screening for malignant neoplasm of the cervix; [phone] Screening for S TD (sexually transmitted disease); (Work) Surveillance of previously prescribed co ntraceptive pill; Screening for lipoid disorders; Screening for d iabetes mellitus; Screening for t hyroid disorder Social History Tobacco Use Types Packs/Day Years Used Date Smoking Tobacco: Never Assessed Sex Assigned at Date Recorded Not on file documented as of this encounter Last Filed Vital Signs Vital Sign Reading Time Taken Comments Blood Pressure 110/78 01/05/2014 7:09 AM PERFECT BINDER OPERATOR Pulse - - Temperature - - Respiratory Rate - - Oxygen Saturation - - Inhaled Oxygen Concentration - - Weight 95.6 kg (210 lb 12.8 oz) 01/05/2014 7:09 AM PERFECT BINDER OPERATOR Height 170.2 cm (5' 7) 01/05/2014 7:09 AM PERFECT BINDER OPERATOR Body Mass Index 33.02 01/05/2014 7:09 AM PERFECT BINDER OPERATOR documented in this encounter Progress Notes Aisha Rust, WOOD CUTTER, BATTERY CONTAINER FINISHING HAND - 01/05/2014 8:36 AM CST Preventive Exam & Pelvic SUBJECTIVE: Destini Cano is a 23 y.o. female, G 0 P 0000 who presents for a routine preventive physical exam.She does not have concerns today. LMP: 12-20-2013. Menstrual periods are every 30 days. She has bleeding for 3-4 days. Rare cramping. Likes this pill, would like to continue use. Denies bleeding between periods or after intercourse. Denies HTN, DVT, FHX DVTs, smoking, migraines, liver issues, breast cancer. Sinus infection: Patient currently being treated for a sinus infection and using Augmentin. Long history of sinus polyps causing sinus infections. Patient thinks she may have a yeast infection due to the antibiotic use. She has been noticing external vulvar irritation and some vaginitis symptoms. No self treatments [id number]. Problem List: Patient Active Problem List Diagnosis Date Noted ??? Contraceptive Management NOS 05/11/2009 Class: Chronic Past Medical/Surgical History: Past Medical History Diagnosis Date ??? Anemia ??? Immunization, other disease ??? Varicella ??? Abnormal Pap smear 09/2009 ASCUC+HRHPV ??? Urinary tract infection Adverse Drug Reactions: Pt's Adverse Drug Reactions were reviewed and updated today. Current Medications: Reviewed and updated today. Past Surgical History Procedure Laterality Date ??? Nasal/sinus endoscopy LW Problem: Endonasal Sinus Surgery S/p LW Onset: 2004 ??? [place] tooth extraction ??? Sinus surgery ??? Nasal polyp surgery ??? Pre-malignant / benign skin lesion excision Mole removal Family History Problem Relation Age of Onset ??? Thyroid Disease Mother ??? High Cholesterol Mother ??? Thyroid Disease Maternal Grandmother ??? Diabetes Maternal Grandfather ??? High Cholesterol Maternal Grandfather ??? Thyroid Disease Maternal Grandfather ??? Thyroid Disease Paternal Grandmother Sexual History: Number of partner in the last year: 1. Current Contraceptive Method: OC. Condoms are used 50%. STD testing: She is not interested in STD today. 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 DTP 1990, 1990, 02/17/1990, 05/16/1991, 08/28/1994 ??? HPV 05/17/2007, 07/27/2007, 11/18/2007 ??? Hep B Adult Vaccine (20+ yrs) 20mcg 08/28/1994, 04/02/1995, 09/21/1995 ??? Hib (ActHIB) 02/17/1990, 06/06/1990, 11/07/1990 ??? Influenza TIV 0.5ml (36+ mos) 02/21/2010 ??? MMR 11/07/1990, 12/17/1999 ??? Oral Polio Vaccine 1990, 1989, 02/17/1990, 05/16/1991, 08/28/1994 ? ? Td Adult (>7 years) 10/06/2001 ??? Tdap (Boostrix) 10/15/2011 Tetanus immunization: UTD Gardasil: completed 3 injections per patient Flu shot: declined Review of Systems: With the exception of any items noted above, the remainder of the complete ROS is negative. OBJECTIVE: Vital Signs: There were no vitals taken for this visit. General: Patient alert, in NAD. HEENT: Pupils equal, sclera clear. Oropharynx normal. Neck: Supple, without thyromegaly or mass. CV: Regular rate and rhythm Resp: Clear to auscultation Abdomen: soft, non-tender, without masses or organomegaly Breasts: normal appearance, no masses or tenderness Lymphatic: No neck, supraclavicular, axillary or groin lymphadenopathy. Lower Extremities: FROM, normal gait without edema, lesions, or deformity. Genitourinary: External genitalia: ERYTHEMA on labia majora, no lesions. Vagina: normal appearing vaginal epithelium. WHITE, THICK DISCHARGE, no lesions. Cervix: No CMT, normal appearance. No discharge or lesions. Pap deferred. Uterus: normal size, shape, consistency and nontender. Adenexa: normal size, nontender, no masses. Anus: normal, no hemorrhoids, Rectal: deferred. Bladder: Nontender, no palpable masses Urethra: Nontender, no discharge Skin: No lesions. Neuro: Motor & sensory function all intact. Psychiatric: Alert & oriented with normal affect and insight. Patient does not appear depressed or anxious. ASSESSMENT: Routine preventive exam Contraceptive management Yeast infection Obesity PLAN: Kelnor OC refilled. Diflucan 1 tablet now, repeat in 72 hours and Lotrisone cream for yeast infection noted on exam. Labs: Fasting cholesterol, glucose, TSH, free T4. Declines flu shot. BMI reviewed. Healthy diet and regular exercise advised . Wt loss advised . WW and increased exercise recommended. RTC 1 year, sooner with any concerns. ECT BINDER OPERATOR documented in this encounter Plan of Treatment Not on filedocumented as of this encounter Visit Diagnoses Diagnosis Routine gynecological examination - Prim lisa Unspecified contraceptive management Khushi vaginitis Candidiasis of vulva and vagina Nasal polyps Unspecified nasal polyp Screening for malignant neoplasm of the cervix Screening for STD (sexually transmitted disease) Screening examination for venereal disea se Surveillance of previously prescribed co ntraceptive pill Screening for lipoid disorders Screening for diabetes mellitus Screening for thyroid disorder documented in this encounter Care Teams Yield Improvement Engineer Relationship Specialty Start Date End Date Ana Mehta APRN, BATTERY CONTAINER FINISHING HAND PCP - General 07/11/13 [address] [place] [id number] documented as of this encounter
--- OUTSIDE RECORDS SUMMARY | 2021-11-01 11:30 | XMS_ITS | Encounter Summary ---
:1990 Author Organization [employer] Address [address] [place] [address] Care Team Providers Name Role Phone Ana Mehta APRN, AVIVA Primary Care Provider [phone] Encounter Details Date Type Department Care Team Description 03/22/2014 [facility] Cough [address] [place], [place] [address] Social History Tobacco Use Types Packs/Day Years Used Date Smoking Tobacco: Never Assessed Sex Assigned at Date Recorded Not on file documented as of this encounter Plan of Treatment Not on filedocumented as of this encounter Procedures Procedure Name Priority Date/Time Associated Diagnosis Comme nts XR CHEST 2 VIEWS STAT 03/22/2014 11:57 AM Cough Resu lts for this MINER PLACER procedure are i n the results section. documented in this encounter Results XR Chest 2 Views (03/22/2014 11:57 AM MINER PLACER) Anatomical Region Laterality Modality Chest, Lung Other Specimen (Source) Anatomical Location Collection Method / Collectio n Time Received Time / Laterality Volume Narrative 03/22/2014 11:59 AM MINER PLACER COMPARISON: ??None. FINDINGS: ??Two views were obtained. ??T he lungs and costophrenic angles are clear. ??Heart size and pulmonary vascularity are within normal limits. ??There is no evidence of pneumothorax or pleural effusion. Bony thorax is unremarkable. Procedure Note Santi Whiteside MD - 2015 COMPARISON: None. FINDINGS: Two views were obtained. The l ungs and costophrenic angles are clear. Heart size and pulmonary vascularity are within normal limits. There is no evidence of pneumothorax or pleural effusion. Bony thorax is unremarkable. Ana Mehta APRN, CNP RAD GD documented in this encounter Visit Diagnoses Diagnosis Cough documented in this encounter Care Teams Molded Parts Inspector Relationship Specialty Start Date End Date Ana Mehta APRN, TOBACCO CURER PCP - General 07/11/13 [address] [place] [address] documented as of this encounter
--- OUTSIDE RECORDS SUMMARY | 2021-11-01 11:30 | XMS_ITS | Encounter Summary ---
:1990 Author Organization [facility] Address [address] [place] [address] Care Team Providers Name Role Phone Ana Mehta APRN, CNP Primary Care Provider [phone] Reason for Visit Reason Comments Medication Request Encounter Details Date Type Department Care Team Description 01/18/2014 Telephone [facility] Ana Mehta, [facility] ication Request Medicine AVIVA SUBRAMANIAN [address] [place] [address] [place] [address] [phone] (Wo rk) Social History Tobacco Use Types Packs/Day Years Used Date Smoking Tobacco: Never Assessed Sex Assigned at Date Recorded Not on file documented as of this encounter Nursing Notes Ana Mehta APRN, CNP - 01/18/2014 1:05 PM CST Spoke with patient. Almost immediately after starting course of Augmentin last month, sinus pain andcongestion improved approximately 75%. However, her symptoms never completely went away and have gradually worsened. Yesterday, but she and her boyfriend developed a deep cough. She feels run down and has occasional chills. Continues to have green nasal drainage. Thus far, cough not associated with shortness of breath or wheezing. No documented fever. She is no longer using Flonase. She is taking TheraFlu. Advised repeating course of Augmentin x10 days. Restart Flonase. Advised Delsym for cough. Followup if symptoms do not significantly improve on treatment plan. TROLYSIS OPERATOR Ana Mehta APRN, CNP - 01/18/2014 12:54 PM CST LM to check on patient and get status update. Please route call to Ana Mehta [phone] if I'm at desk. Shanna Reeves, RN - 01/18/2014 12:08 PM CST Action requested: Order Antibiotic Pt was seen 12/26/13 for sinusitis and prescribed a 10-day course of Augmentin, which she completed.She initially felt slight improvement but symptoms have continued and she now has a nonproductive cough as well. She reports being told she could call back for a second course of antibiotics if needed. TROLYSIS OPERATOR Betty Mg - 01/18/2014 12:02 PM CST Patient calling to let PCP know that her symptoms of congestion have not lessened and she now has a cough as well. Please advise. documented in this encounter Plan of Treatment Not on filedocumented as of this encounter Visit Diagnoses Diagnosis Acute sinusitis Acute sinusitis, unspecified documented in this encounter Care Teams Spotlight Operator Relationship Specialty Start Date End Date Ana Mehta APRN, CNP PCP - General 07/11/13 [address] [place] [address] documented as of this encounter
--- OUTSIDE RECORDS SUMMARY | 2021-11-01 11:30 | XMS_ITS | Encounter Summary ---
:1990 Author Organization [employer] Address [address] [place] [address] Care Team Providers Name Role Phone Mariella Smith APRN, CNP Primary Care Provider [phone] Reason for Visit Reason Comments Refill Encounter Details Date Type Department Care Team Description 02/13/2015 Refill [place] Mariella Hodgson APRN, Refill [address] [place] [address] [facility] [phone] [place], [place] [address] (Wo rk) Social History Tobacco Use Types Packs/Day Years Used Date Smoking Tobacco: Never Assessed Sex Assigned at Date Recorded Not on file documented as of this encounter Nursing Notes Dipak Casanova RN - 02/13/2015 4:59 PM CST Renewed medication per medication refill protocol. Requested Prescriptions Signed Prescriptions Disp Refills ??? fluticasone (FLONASE) 50 mcg/actuation nasal spray 48 g 3 Sig: Place 2 sprays into each nostril daily (every 24 hours). Dose is for each nostril. Authorizing Provider: MARIELLA SMITH Ordering User: DIPAK CASANOVA TY TRADER User, [employer] - 02/13/2015 4:59 PM CST fluticasone (FLONASE) 50 mcg/actuation nasal spray - MEDICATION STARTED: 12/26/2013 - LAST REFILLED ON: 01/07/2015, QTY: 16, Refills: 11, Sig: place 2 sprays into each nostril daily (every 24 hours). dose is for each nostril. (unchanged) - REFILL: 12 months - RATIONALE: This refill should last until the patient is due for an office visit. - LAST QUALIFYING VISIT WITH MARIELLA SMITH: 01/07/2015 - NEXT SCHEDULED VISIT: None - SBP: 120.0mm Hg on 01/07/2015 - DBP: 84.0mm Hg on 01/07/2015 Powered by [employer], Reference: [id number], 02/13/2015 8:08:12 AM Carmenza SANTOS REFILL ([id number]) Angela Harrison - 02/13/2015 8:07 AM CST Patient was advised a 2 business day process TY TRADER documented in this encounter Plan of Treatment Not on filedocumented as of this encounter Visit Diagnoses Not on filedocumented in this encounter Care Teams Gun Profiler Relationship Specialty Start Date End Date Mariella Smith, CHIN STRAP SEWER, EDUCATIONAL ADMINISTRATOR PCP - General 07/11/[address] [place] [address] documented as of this encounter
--- OUTSIDE RECORDS SUMMARY | 2021-11-01 11:30 | XMS_ITS | Encounter Summary ---
:1990 Author Organization [employer] Address [address] [place] [address] Care Team Providers Name Role Phone Ana Mehta APRN, CNP Primary Care Provider [phone] Reason for Visit Reason Comments Annual Exam Encounter Details Date Type Department Care Team Description 01/07/2015 Office Visit [facility] Ana Mehta emale exam with routine gynecological exam (Primary Dx); Patrick Paul APRN, CNP Routine screening for STI (sexually simms smitted infection); [address] [address] [place] Encounter for surveillance [place] [address] [place], [place] [phone] [address] Social History Tobacco Use Types Packs/Day Years Used Date Smoking Tobacco: Never Assessed Sex Assigned at Date Recorded Not on file documented as of this encounter Last Filed Vital Signs Vital Sign Reading Time Taken Comments Blood Pressure 120/84 01/07/2015 9:25 AM LINE ORDERING CLINICIAN Pulse 62 01/07/2015 9:25 AM LINE ORDERING CLINICIAN Temperature - - Respiratory Rate - - Oxygen Saturation - - Inhaled Oxygen Concentration - - Weight 96.6 kg (213 lb) 01/07/2015 9:25 AM LINE ORDERING CLINICIAN Height 171.5 cm (5' 7.5) 01/07/2015 9:25 AM LINE ORDERING CLINICIAN Body Mass Index 32.87 01/07/2015 9:25 AM LINE ORDERING CLINICIAN documented in this encounter Progress Notes Ana Mehta, MEDICAL DETAILIST, DAY LIGHT RELIEF OPERATOR - 01/07/2015 10:13 AM CST Destini Torrez [id number] 1990 SUBJECTIVE: DESTINI TORREZ is a 24 y.o. female who presents to the clinic for a routine physical exam. She is and is on Kelnor OCP for regulation of her menstrual cycle. Menses were previously long and heavy. She is currently sexually active in a monogamous relationship with her boyfriend of 8 years. She uses condoms in addition for contraception. No concerns about STI's at this time. She denies dyspareunia, unusual vaginal discharge, or pelvic pain. Last Pap in 2012 was negative. No history of abnormal Paps. The patient states that she does not always remember to take her pill and misses a pill on average every 1 to 2 days. She simply skips pills rather than play catch up. Sometimes she has a very light period during her placebo week and sometimes she does not bleed at all. All. She states that this is fine with her because her menses are very light or nonexistent. She uses condoms 100% of the time for contraception, so is not worried about using the control for its contraceptive affect. She is interested in more long-acting contraceptives including IUDs and implants. She and her boyfriend would like to wait at least 5 years to have a child. Denies smoking, HTN, HAs, DVT, FHX DVT, liver issues or breast cancer. PAST MEDICAL HISTORY: Past Medical History Diagnosis Date ??? Anemia ??? Immunization, other disease ??? Varicella ??? Urinary tract infection ??? Abnormal Pap smear 09/2009 [facility] PAST SURGICAL HISTORY: Past Surgical History Procedure Laterality Date ??? Nasal/sinus endoscopy 2005 Endonasal Sinus Surgery ??? [place] tooth extraction ??? Nasal polyp surgery ??? Pre-malignant / benign skin lesion excision Mole removal LAYUP WORKER HISTORY: OB History Para Term AB TAB SAB Ectopic Multiple Living 0 Patient's last menstrual period was 12/10/2014 (approximate). MEDICATIONS: Outpatient Prescriptions Prior to Visit Medication Sig ??? ethynodiol-ethinyl estradiol (KELNOR , ,) 1-35 mg-mcg per tablet Take 1 tablet by mouth daily (every 24 hours). Follow package directions ??? fluticasone (FLONASE) 50 mcg/actuation nasal spray Place 2 sprays into each nostril daily (every24 hours). Dose is for each nostril. No facility-administered medications prior to visit. ALLERGIES: Allergies Allergen Reactions ??? Promethazine Hcl Syncope FAMILY HISTORY: Family History Problem Relation Age of Onset ??? Thyroid Disease Mother ??? High Cholesterol Mother ??? Thyroid Disease Maternal Grandmother ??? Diabetes Maternal Grandfather ??? High Cholesterol Maternal Grandfather ??? Thyroid Disease Maternal Grandfather ??? Thyroid Disease Paternal Grandmother SOCIAL HISTORY: History Social History Narrative The patient works full-time. She has a steady boyfriend of 8 years. They have old retrievers. No exercise. HABITS: Tobacco: Never Alcohol/Drugs: Denies regular alcohol use. Denies drug use. Exercise: Sedentary. Diet: Well-balanced. No soda. Could be better HEALTHCARE MAINTENANCE: Last Pap: 2012, negative Complete ROS negative with any exceptions listed above. OBJECTIVE VITALS: BP 120/84 mmHg Pulse 62 Ht 5' 7.5 (1.715 m) Wt 213 lb (96.616 kg) BMI 32.85 kg/m2 LMP 12/10/2014 (Approximate) CONSTITUTIONAL; Well-developed, well nourished female, in NAD. HEENT: Head AT/NC. External ears normal. TMs clear, bony landmarks visible. Nares patent, turbinatesedematous with clear drainage. Oropharynx non- erythematous. Uvula midline. Dentition in good condition. NECK: Supple, thyroid without enlargement or nodules. No cervical lymphadenopathy. LUNGS: Symmetrical expansion, CTA in all hwang bilaterally. HEART: Regular rate and rhythm. No murmurs. ABDOMEN: Soft, non-tender, no guarding or masses. No HSM. EXTREMITIES: No edema. Strong and equal peripheral pulses SKIN: No obvious rashes or suspicious lesions. PSYCH: Well-oriented. Appropriate mood and affect. NEURO: Speech and gait are normal. DTRs 2+ in the patellar reflex. BREASTS: Moderate size, symmetrical. No nipple discharge. No palpable masses, tenderness, lesions, dimpling, or retractions. LYMPH: No axillary, supraclavicular, or inguinal lymphadenopathy. GENITALIA: Labia without lesions, normal hair distribution. Vaginal vault pink with milky white discharge. No cervical lesions. No CMT. No adnexal masses or tenderness. Uterus anteverted. RECTAL: No external hemorrhoids noted. ASSESSMENT/PLAN: Well female exam with routine gynecological exam - Routine screening for Chlamydia and GC STD - Pap due 2015. - TdaP up-to-date. HPV series up today. Patient declines influenza vaccine. - Followup yearly. Encounter for surveillance of contraceptive pills - I emphasized the importance of taking her control pill regularly in order to consider this an effective contraceptive. I discussed other alternatives including implants, NuvaRing, and IUDs. Sheis most interested in an IUD or implant and I gave her information to look over on both of these options. I discussed the risks, side effects, and efficacy of all options. She wishes to have implant, she can make an appointment with me for insertion. If she would like the Mirena, she can schedule Danay or Dr. Forrest. Advised her to use both condoms and her OCP in t he interim. She will check with insurance [place] coverage prior to insertion. - ethynodiol-ethinyl estradiol (KELNOR 1/35, 28,) 1-35 mg-mcg per tablet; Take 1 tablet by mouth daily (every 24 hours). Follow package directions Chronic rhinitis - Refilled fluticasone (FLONASE) 50 mcg/actuation nasal spray; Place 2 sprays into each nostril daily (every 24 hours). Dose is for each nostril. - Advised nasal saline rinses during URIs to prevent sinusitis, as this has been a problem for her previously. Counseling: Discussed the importance of safe sexual practices with use of barrier contraception, regular exercise, eating a healthy, well-balanced diet, and sun protection. Ana Mehta APRN, AVIVA [facility] NB: A voice recognition dictation system was used for this note. Please excuse any typographical errors. ORDERING CLINICIAN documented in this encounter Plan of Treatment Not on filedocumented as of this encounter Procedures Procedure Name Priority Date/Time Associated Diagnosis Comme nts CHLAMYDIA & GC (14 Routine 01/07/2015 10:07 AM Routine screeni ng Results for this YEARS AND OLDER) LINE ORDERING CLINICIAN for STI (sexually proced ure are in transmitted the results infection) section. documented in this encounter Results Chlamydia & GC (01/07/2015 10:07 AM LINE ORDERING CLINICIAN) [facility] gist Method Time Signature Chlamydia Negative Negative HP CONVERSION Trachomatis STD Comment: Test Performed by Registered Nurse Cardiac Telemetry Mediated Amplification CLIA Number [id number] N. gonorrhoeae STD Negative Negative HP CONVERSI ON Comment: Test Performed by Registered Nurse Cardiac Telemetry Mediated Amplification Performed at [facility], [address] [place] [address] ??[id number] CLIA Number [id number] Source STD Cervix HP CONVERSION Comment: CLIA Number [id number] Specimen Anatomical Collection Method Collection Time Receive d Time (Source) Location / / Volume Laterality 01/07/2015 10:07 01/07/2015 4:01 AM LINE ORDERING CLINICIAN PM LINE ORDERING CLINICIAN Ana Mehta APRN, CNP LAB_1 Performing Organization Address City/State/ZIP Code Phon e Number HP CONVERSION documented in this encounter Visit Diagnoses Diagnosis Well female exam with routine gynecologi elmo exam - Primary Routine gynecological examination Routine screening for STI (sexually simms smitted infection) Screening examination for venereal disea se Encounter for surveillance of contracept bonnie pills Surveillance of previously prescribed co ntraceptive pill documented in this encounter Care Teams Chassis Inspector Relationship Specialty Start Date End Date Ana Mehta APRN, DAY LIGHT RELIEF OPERATOR PCP - General 07/11/13 [address] [address] [place] [address] documented as of this encounter
--- OUTSIDE RECORDS SUMMARY | 2021-11-01 11:30 | XMS_ITS | Encounter Summary ---
:1990 Author Organization [employer] Address [address] [place] [address] Care Team Providers Name Role Phone Ana Mehta APRN, AVIVA Primary Care Provider [phone] Reason for Visit Reason Comments Medication Refill Question Encounter Details Date Type Department Care Team Description 07/18/2013 Telephone [facility] Ana Mehta, Med ication Refill Medicine AVIVA SUBRAMANIAN Question [address] [address] [place] [address] [place] [address] [phone] (Wo rk) Social History Tobacco Use Types Packs/Day Years Used Date Smoking Tobacco: Never Assessed Sex Assigned at Date Recorded Not on file documented as of this encounter Nursing Notes Krystle Devi LPN - 07/18/2013 3:36 PM CDT Called pt and let her know information. Keny Wade MD - 07/18/2013 3:24 PM CDT Script sent. Massiel Andrade - 07/18/2013 3:03 PM CDT She just left [place].Infected toe. That provider(Qasim Jcaob) told her to call her PCP to get a refill on her Keflex to take with her on her vacation next week. [facility] is out today and tomorrow. Please call when done. Celestina Reyes - 07/18/2013 2:32 PM CDT Non -Symptom Message from Front Line Primary Care Provider: Ana Mehta Message: Patient states she needs a call re antibiotic she is taking and if she can get one more refill? documented in this encounter Plan of Treatment Not on filedocumented as of this encounter Visit Diagnoses Diagnosis Onychia and paronychia of toe - Primary documented in this encounter Care Teams Lsw Relationship Specialty Start Date End Date Ana Mehta, BANBURY OPERATOR, PLUMBER ASSISTANT PCP - General 07/11/13 [address] [address] [place] [id number] documented as of this encounter
--- OUTSIDE RECORDS SUMMARY | 2021-11-01 11:30 | XMS_ITS | Encounter Summary ---
:1990 Author Organization [employer] Address [address] [place] [address] Care Team Providers Name Role Phone MehtaAna APRN, CNP Primary Care Provider [phone] Reason for Visit Reason Comments Cough Encounter Details Date Type Department Care Team Description 03/12/2014 Office Visit [facility] Hamilton Donahue MD Cough (Primary Dx); Medicine [address] Facial pain [address] [place] [address] [phone] (Wo rk) Social History Tobacco Use Types Packs/Day Years Used Date Smoking Tobacco: Never Assessed Sex Assigned at Date Recorded Not on file documented as of this encounter Last Filed Vital Signs Vital Sign Reading Time Taken Comments Blood Pressure 132/86 03/12/2014 2:54 PM RADIOSONDE OPERATOR Pulse 100 03/12/2014 2:54 PM RADIOSONDE OPERATOR Temperature 36.7 ??C (98.1 ??F) 03/12/2014 2:54 PM RADIOSONDE OPERATOR Respiratory Rate - - Oxygen Saturation - - Inhaled Oxygen Concentration - - Weight 95.7 kg (211 lb) 03/12/2014 2:54 PM RADIOSONDE OPERATOR Height - - Body Mass Index 33.05 01/05/2014 7:09 AM RADIOSONDE OPERATOR documented in this encounter Progress Notes Hamilton Donahue MD - 03/14/2014 7:55 PM CST SUBJECTIVE Destini Cano is a 23 y.o. female, who presents with cough and facial pain PMH: reviewed and updated in [facility] HPI: Duration of symptoms: 10 days Cough: Yes, moderate, productive with yellow sputum Sore throat: Yes, mild with coughing Facial pressure/pain: Yes, mild Teeth pain: No Earache: No Congestion/drainage: Yes, mild Fever/chills: No Dyspnea: Yes, mild with severe coughing Chest pain: Yes, mild with severe coughing Abdominal pain/nausea/vomiting/diarrhea: No Headache: No Exposure: Coworkers have been sick Allergies Allergen Reactions ??? Promethazine Hcl Syncope Medications: reviewed and updated in [facility] Social history: patient does not smoke OBJECTIVE BP 132/86 Pulse 100 Temp(Src) 36.7 ??C (98 ??F) (Oral) Wt 95.709 kg (211 lb) General appearance: Alert, cooperative, no distress Head: Normocephalic, atraumatic Ears: Normal TM's bilaterally, normal external ears bilaterally Nose: Normal external nose, no rhinorrhea Pharynx: Slightly erythematous Maxillary sinuses: Mildly tender to palpation Neck: Supple without adenopathy Lungs: Clear to ascultation Chest wall: Not tender to palpation Heart: Regular rate and rhythm Abdomen: Soft, non tender, no mass Neurologic: Grossly intact ASSESSMENT Diagnosis (ICD9) and Associated Orders ICD-9-CM 1. Cough 786.2 2. Facial pain 784.0 PLAN Recommend fluid and rest. Flonase 2 sprays into each nostrils at nighttime until feel better. Zithromax 500 mg on day 1 then 250 mg on day 2-5. Ok to use OTC Ibuprofen or Tylenol for comfort. Call or schedule follow up visit if symptoms persist or worsen. Care plans discussed with patient. OSONDE OPERATOR documented in this encounter Plan of Treatment Not on filedocumented as of this encounter Visit Diagnoses Diagnosis Cough - Primary Facial pain Headache documented in this encounter Care Teams Specialty Development Consultant Relationship Specialty Start Date End Date Ana Mehta, HELMET BINDER, CIVIL DESIGN TECHNICIAN PCP - General 07/11/13 [address] [address] [place] [address] documented as of this encounter
--- OUTSIDE RECORDS SUMMARY | 2021-11-01 11:30 | XMS_ITS | Encounter Summary ---
:1990 Author Organization [email or web address] Address [address] [place] [address] Care Team Providers Name Role Phone Ana Mehta APRN, CNP Primary Care Provider [phone] Reason for Visit Reason Comments CONJUNCTIVITIS Encounter Details Date Type Department Care Team Description 12/27/2013 Nurse Triage [facility] Ana Mehta, [place] JUNCTIVITIS Medicine AVIVA SUBRAMANIAN [address] [address] [place] [address] [place] [address] [phone] (Wo rk) Social History Tobacco Use Types Packs/Day Years Used Date Smoking Tobacco: Never Assessed Sex Assigned at Date Recorded Not on file documented as of this encounter Nursing Notes Ana Mehta APRN, CNP - 12/27/2013 12:27 PM CST Spoke with patient. Verified symptoms listed below. Rx sent for Polymyxin Trimethoprim eye drops. Advised no work until on antibiotics for 24 hours. Re- evaluation if concerns persist. PROGRAMMER Kristine Mayo RN - 12/27/2013 11:46 AM CST Protocol: EYE - PUS OR [id number] Affirmative: Eye with yellow/green discharge or eyelashes stick together, but NO standing order to call in antibiotic eye drops Disposition of See Within 12 - 24 Hours (Office or Urgent Care) suggested. Pt is calling. Was seen yesterday with sinus infection. Started on augmentin. Pt states that starting last evening, she has noticed some slight redness to the sclera of both of her eyes. Has also noticed light green drainage from both eyes. States that eyelashes were not stuck shut today, but did havemattering on both of them. Denies itching or pain in her eyes. Does have some slight swelling of both eyelids. Pt is wondering if the augmentin will work for these symptoms too? Or could provider call in Rx for eye drops? Will route to provider for advice. Pt verbalized understanding and agreement with plan. Pt was instructed to call the clinic with any questions, concerns, or worsening symptoms. PROGRAMMER Angela Scott - 12/27/2013 11:26 AM CST Patient was in yesterday for a sinus infection. This morning she has signs of pink eye. documented in this encounter Plan of Treatment Not on filedocumented as of this encounter Visit Diagnoses Diagnosis Conjunctivitis, acute - Primary Acute conjunctivitis, unspecified documented in this encounter Care Teams Psych Rn Relationship Specialty Start Date End Date Ana Mehta, USABILITY STRATEGIST, CIRCUIT DESIGNER PCP - General 07/11/13 [address] [address] [place] [address] documented as of this encounter
--- OUTSIDE RECORDS SUMMARY | 2021-11-01 11:30 | XMS_ITS | Encounter Summary ---
:1990 Author Organization [employer] Address [address] [place] [address] Care Team Providers Name Role Phone Ana Mehta Beverly SUBRAMANIAN, FENCE LABORER Primary Care Provider [phone] Reason for Visit Reason Comments Foot Pain left DOI 07/23/16 Encounter Details Date Type Department Care Team Description 07/27/2016 Office Visit [facility] Chema Hilliard W, Rosie murphy foreign body Urgent Care MD of foot (Primary Dx) [address] [facility] [place] [address] [place], [place] [phone] (Wo rk) Social History Tobacco Use Types [...] Sign Reading Time Taken Comments Blood Pressure - - Pulse - - Temperature 36.7 ??C (98 ??F) 07/27/2016 10:23 AM CDT Respiratory Rate - - Oxygen Saturation - - Inhaled Oxygen Concentration - - Weight 101 kg (222 lb 9.6 oz) 07/27/2016 10:23 AM CDT Height 170.2 cm (5' 7) 07/27/2016 10:23 AM CDT Body Mass Index 34.86 07/27/2016 10:23 AM CDT documented in this encounter Patient Instructions Patient InstructionsArabella Reyna OA-C - 07/27/2016 10:[address] Chema Hilliard MD Sports & Orthopaedic Medicine [facility] Medication Requests: Prescriptions are not filled on Weekends or on Weekdays after 3:00PM For all medication refills: Request a refill using [employer] or contact your Pharmacy [facility] Nurse Line: Please contact [facility] Clinic Nurse line for all medical requests and questions at [phone] MRI Scheduling: To schedule an MRI at [facility] please call [phone] Paperwork Requests: Questions regarding FMLA or disability paperwork please call [phone] Workers??? Compensation: Please contact our department for any Work Comp concerns at Email: [email or web address] Appointment with Dr. Jacob 07-28-16 at 7:45am 2nd floor documented in this encounter Progress Notes Chema Hilliard MD - 07/27/2016 10:01 PM CDT NAME: DESTINI TORREZ MR#: [id number] CSN: [id number] AUTHENTICATING CLINICIAN: Chema Hilliard MD CONFIRM #: [id number] LOC: 711 CLINIC PROGRESS NOTE DATE OF VISIT: 07/27/2016 : 1990 CHIEF COMPLAINT: Foot injury. HPI: This 25-year-old female presents for evaluation of a left foot injury she sustained on 07/23/2016, when she was doing dishes, dropped something and the glass broke. She did step on a piece of glass that she did not see. She was bleeding, tried to get that pulled out and was not able to. She went to [facility] urgent care where x-rays obtained showing retained glass. She presents to [facility] further evaluation. She has tried Epsom salt soaks and some baking soda which has not helped. REVIEW OF SYSTEMS: No fever, rash, numbness, tingling. PAST MEDICAL HISTORY: Negative for diabetes. SOCIAL HISTORY: She enjoys walking. PHYSICAL EXAM: Temperature is 98.0. Skin: Reveals a small puncture wound on the lateral aspect of the plantar surface of her foot. There is no erythema. She is tender to palpation in this area. No bleeding. No purulent drainage. She is able to ambulate with a mildly antalgic gait. Normal range of motion of her foot and ankle. IMAGING: X-rays that were previously obtained were reviewed showing the retained foreign body. ASSESSMENT: Left foot retained foreign body in the plantar aspect of the lateral aspect of her foot. PLAN: Will facilitate a consultation with a foot surgeon here at [facility] to discuss removal of the foreign body. CWM:JAK C: R:07/27/16 22:12 CONFIRM#:[id number] documented in this encounter Plan of Treatment Not on filedocumented as of this encounter Visit Diagnoses Diagnosis Retained foreign body of foot - Primary Residual foreign body in soft tissue documented in this encounter Care Teams Front Office Director Relationship Specialty Start Date End Date Ana Mehta, MEDICAL BILLING CODER, FENCE LABORER PCP - General 07/11/[address] [place], [place] [address] documented as of this encounter
--- OUTSIDE RECORDS SUMMARY | 2021-11-01 11:30 | XMS_ITS | Encounter Summary ---
:1990 Author Organization [employer] Address [address] [place] [address] Care Team Providers Name Role Phone Ana Mehta APRN, CNP Primary Care Provider [phone] Reason for Visit Reason Comments Contraception Encounter Details Date Type Department Care Team Description 02/26/2015 Office Visit [facility] Aisha Rust, Famil y planning, IUD Services-DYNAMIC BALANCER SET UP WORKER MORIS, AVIVA (intrauterine device) [address], [address] [address] [facility] [address] check/reinsertion/rem [address] [place], [place] oval (Primary Dx) [place] [address] [phone] Social History Tobacco Use Types Packs/Day Years Used Date Smoking Tobacco: Never Assessed Sex Assigned at Date Recorded Not on file documented as of this encounter Progress Notes Aisha Rust, MORIS, AVIVA - 02/26/2015 1:05 PM CST Chief Complaint: IUD check SUBJECTIVE: Destini Cano is a 24 y.o. female here for IUD check. She had a Mirena IUD placed on 02-07-2015. LMP: 02-22-2015. -Reports some problems since insertion. -Bleeding on-off for 2 wk after insertion. Some days moderate flow or spotting. No bleeding now. -Had IC on Sat, 5 d ago and pain after episode. Has continued on/off intermittent for the past couple days. Using ibuprofen urine with relief. Has not checked for the strings and is unable to feel them. No concerns for STDs. GC/CT culture negative prior to IUD insertion. No new partners. OBJECTIVE: LMP 02/22/2015 General appearance: moves easily about the room, alert, cooperative, no distress, appears stated age Lymphatic: no groin lymphadenopathy. Genitourinary: External genitalia: normal without lesions. Vagina: normal appearing vaginal epithelium, no discharge, no lesions. Cervix: No CMT, normal appearance with no discharge, no lesions. IUD strings 2cm from os. Uterus: normal size, shape, consistency and nontender c. Adenexa: normal size, minimal tenderness fundal, no masses. Anus: normal, no hemorrhoids. Bladder: Nontender, no palpable masses Urethra: Nontender, no discharge Psychiatric: Alert & oriented with normal affect and insight. Patient does not appear depressed or anxious. Assessment: IUD check Plan: Discussed normal exam. Patient would like to monitor symptoms and if cramping continues, PUS. Offered US today but patient declines. Plans to keep appointment in 2-4wk to recheck strings. Will call before then if any additional concerns. Reviewed expected irregular bleeding for at least 3 months. Contact clinic if symptoms are not improved by 4-6 months after insertion. Check for IUD strings monthly. If unable to feel strings, RTC for eval, use condoms for backup or abstain pending apt. Condoms 100% for STD protection. Dictation disclaimer: Some notes are completed with voice-recognition dictation software. Typographical errors may result. Please contact me via [employer] staff message if you note any errors requiring clarification. ESSOR OF ENGLISH documented in this encounter Plan of Treatment Not on filedocumented as of this encounter Visit Diagnoses Diagnosis Family planning, IUD (intrauterine devic e) check/reinsertion/removal - Primary Surveillance of previously prescribed in trauterine contraceptive device documented in this encounter Care Teams Sports Broadcasting Internship Relationship Specialty Start Date End Date Ana Mehta APRN, AVIVA PCP - General 07/11/13 [address] [place] [address] documented as of this encounter
--- OUTSIDE RECORDS SUMMARY | 2021-11-01 11:30 | XMS_ITS | Encounter Summary ---
:1990 Author Organization [employer] Address [address] [place] [address] Care Team Providers Name Role Phone Ana Mehta APRN, MILLING MACHINE SET UP OPERATOR Primary Care Provider [phone] Reason for Visit Procedure/Equipment (Routine) - Incomplete Specialty Diagnoses / Procedures Referred By Contact Refer red To Contact Diagnoses Left foot pain Rosina Garcia APRN, Procedures XR Foot Lt 3+ Views MILLING MACHINE SET UP OPERATOR [address] [place] [address] Referral ID Status Reason Start Date Expiration Date Visits V isits Requested Authorized [id number] Incomplete 07/27/2016 10/26/2017 1 1 Encounter Details Date Type Department Care Team Description 07/27/2016 Imaging [facility] [address] [place] [address] Social History Tobacco Use Types [...] Priority Date/Time Associated Diagnosis Comme nts XR FOOT LT 3+ VIEWS Routine 07/27/2016 9:13 AM Left foot pain Results for this CDT procedure are i n the results section. documented in this encounter Results XR Foot Lt 3+ Views (07/27/2016 9:13 AM CDT) Anatomical Region Laterality Modality Lower Extremity, Foot Computed Radiograp hy Specimen (Source) Anatomical Collection Method Collection Time Re ceived Time Location / / Volume Laterality 07/27/2016 9:00 AM CDT Narrative 07/27/2016 10:05 AM CDT COMPARISON: ??None. FINDINGS: ??3 views of the left foot. Th ere is a 4 mm linear radiodensity seen in the plantar superficial soft tissues at the lateral aspect of the midfoot concerning for a foreign body. No fracture. Procedure Note Suman Bustillo MD - 07/27/2016Formattin g of this note might be different from the original. COMPARISON: None. FINDINGS: 3 views of the left foot. Ther e is a 4 mm linear radiodensity seen in the plantar superficial soft tissues at the lateral aspect of the midfoot concerning for a foreign body. No fracture. Rosina Garcia APRN, MILLING MACHINE SET UP OPERATOR RAD [facility] documented in this encounter Visit Diagnoses Not on filedocumented in this encounter Care Teams Field Cane Scale Clerk Relationship Specialty Start Date End Date Ana Mehta APRN, MILLING MACHINE SET UP OPERATOR PCP - General 07/11/13 [address] [place] [address] documented as of this encounter
--- OUTSIDE RECORDS SUMMARY | 2021-11-01 11:30 | XMS_ITS | Encounter Summary ---
:1990 Author Organization [employer] Address [address] [place] [address] Care Team Providers Name Role Phone Ana Mehta APRN, CNP Primary Care Provider [phone] Encounter Details Date Type Department Care Team Description 01/09/2014 Notes/Orders Aisha Beverly APRN, Obstetrics/Gynecolog y WIRELESS SALES EXPERT [address] [address] [place] [address] [place] [phone] (Wo rk) Social History Tobacco Use Types Packs/Day Years Used Date Smoking Tobacco: Never Assessed Sex Assigned at Date Recorded Not on file documented as of this encounter Progress Notes Aisha Harrell MA - 01/09/2014 4:26 PM CST Health Care Certification Form signed and faxed. RNATIONAL MANAGER documented in this encounter Plan of Treatment Not on filedocumented as of this encounter Visit Diagnoses Not on filedocumented in this encounter Care Teams Facility Maintenance Mechanic Relationship Specialty Start Date End Date Ana Mehta APRN, WIRELESS SALES EXPERT PCP - General 07/11/13 [address] [place] [address] documented as of this encounter
--- OUTSIDE RECORDS SUMMARY | 2021-11-01 11:30 | XMS_ITS | Encounter Summary ---
:1990 Author Organization [facility] Address [address] [place] [address] Care Team Providers Name Role Phone Ana Mehta APRN, CNP Primary Care Provider [phone] Reason for Visit Reason Comments Follow-up Encounter Details Date Type Department Care Team Description 07/13/2013 Office Visit [facility] Ana Mehta, Ana Rosa de (Primary Dx); Medicine AVIVA SUBRAMANIAN Onychia and paronychia of toe [address] [place] [address] [place], [place] [phone] (Wo rk) Social History Tobacco Use Types Packs/Day Years Used Date Smoking Tobacco: Never Assessed Sex Assigned at Date Recorded Not on file documented as of this encounter Last Filed Vital Signs Vital Sign Reading Time Taken Comments Blood Pressure 118/76 07/13/2013 8:47 AM CDT Pulse - - Temperature 36.8 ??C (98.2 ??F) 07/13/2013 8:47 AM CDT Respiratory Rate - - Oxygen Saturation - - Inhaled Oxygen Concentration - - Weight 88.9 kg (196 lb) 07/13/2013 8:47 AM CDT Height - - Body Mass Index 30.7 11/10/2012 9:36 AM CDT documented in this encounter Patient Instructions Patient InstructionsAna Mehta APRN, CNP - 07/13/2013 9:17 AM CDT Recurrent Cellulitis Toe: - Please call the Podiatry dept. at [phone] to schedule your appointment. documented in this encounter Progress Notes Ana Mehta APRN, CNP - 07/13/2013 9:26 AM CDT Destini Torrez [id number] 1990 SUBJECTIVE: DESTINI TORREZ is a 22 y.o. female who presents to the clinic for cellulitis of the right fourth toe. I initially treated the patient for this issue on 06/06. She responded to therapy of Keflex q.i.d. x7 days. Then, patient developed recurrent infection on 06/27 and was seen in urgent care. A wound culture was obtained demonstrating mixed skin bacteria. She completed therapy with clindamycin last Wednesday and states that the toe is feeling better. He continues to be mildly swollen, but is no longer painful or red. She has had no streaking or advancing erythema proximally up the foot. Overall, she feels well and denies fever or chills. The patient will be leaving for a vacation in the [facility] [place] next week. She wants to make sure that this is healed before she leaves. She is wondering if she should take some antibiotics with her in case of recurrent infection. PAST MEDICAL AND SURGICAL HISTORY REVIEWED IN [facility] FAMILY AND SOCIAL HISTORY REVIEWED IN [facility] MEDICATIONS: Outpatient Prescriptions Prior to Visit Medication Sig ??? ethynodiol-ethinyl estradiol (KELNOR , ,) 1-35 mg-mcg per tablet Take 1 tablet by mouth daily (every 24 hours). Follow package directions No facility-administered medications prior to visit. ALLERGIES: Promethazine hcl ROS as described above. Other pertinent positives include: As above. OBJECTIVE BP 118/76 Temp(Src) 98.3 ??F (36.8 ??C) (Oral) Wt 196 lb (88.905 kg) BMI 30.69 kg/m2 LMP 06/27/2013 GENERAL: This is a well-developed, well-nourished female in no acute distress. EXTREMITIES: The patient's right fourth toe reveals mild edema, but no erythema. It is no longer warm to the touch. No advancing erythema or streaking. Nontender along both plantar and dorsal aspect. Strong and equal peripheral pulses. SKIN: No obvious rashes or suspicious lesions PSYCH: Well-oriented. Appropriate mood and affect. ASSESSMENT/PLAN: Cellulitis of toe, resolved - Due to upcoming trip out of the country, advised the patient to bring with her a prescription for cephALEXin (KEFLEX) 500 mg capsule; Take 1 capsule by mouth 4 times daily for 10 days. Advised her touse this if she should notice any signs of infection. At this point, no further treatment is recommended. - Advised her to seek care when abroad if the infection should develop again. - If the infection should recur, advised her to meet with the medical technologist prn upon return. [facility] NB: A voice recognition dictation system was used for this note. Please excuse any typographical errors. documented in this encounter Plan of Treatment Not on filedocumented as of this encounter Visit Diagnoses Diagnosis Cellulitis - Primary Cellulitis and abscess of unspecified si te Onychia and paronychia of toe documented in this encounter Care Teams Incendiary Powder Mixer Relationship Specialty Start Date End Date Ana Mehta APRN, CNP PCP - General 07/11/13 [address] [place] [address] documented as of this encounter
--- OUTSIDE RECORDS SUMMARY | 2021-11-01 11:30 | XMS_ITS | Encounter Summary ---
:1990 Author Organization [employer] Address [address] [place] [address] Care Team Providers Name Role Phone Ana Mehta Beverly SUBRAMANIAN, AVIVA Primary Care Provider [phone] Reason for Visit Reason Comments CONSULT Contraception Encounter Details Date Type Department Care Team Description 01/29/2015 Initial Consult [facility] Zuleyma Clarke Counseling for Services-MANUFACTURING PROJECT MANAGER MD Amber control regarding [address] [facility] [address] [place], [place] (IUD) (Primary Dx) [place] [phone] Social History Tobacco Use Types Packs/Day Years Used Date Smoking Tobacco: Never Assessed Sex Assigned at Date Recorded Not on file documented as of this encounter Last Filed Vital Signs Vital Sign Reading Time Taken Comments Blood Pressure 115/83 01/29/2015 8:04 AM RIGGER UP Pulse 86 01/29/2015 8:04 AM RIGGER UP Temperature - - Respiratory Rate - - Oxygen Saturation - - Inhaled Oxygen Concentration - - Weight 98.2 kg (216 lb 6.4 oz) 01/29/2015 8:04 AM RIGGER UP Height - - Body Mass Index 33.39 01/07/2015 9:25 AM RIGGER UP documented in this encounter Progress Notes Zuleyma Clarke MD - 01/29/2015 10:37 AM CST Chief Complaint Patient presents with ??? Consult ??? Contraception HPI: Destini Cano is a 24 y.o. with last menstrual period was 01/07/2015 (approximate) who presents today to discuss IUD as potential contraceptive option. Her future childbearing plans are: atleast 3 years until children desired. She is currently sexually active with 1 partners. Current contr aception: control pills, has trouble remembering to take it. Has been on control pills for over 10 years. No history of sexually transmitted infections. Menses are usually regular, 3-4 daysof flow, no cramping. Past Medical History Diagnosis Date ??? Anemia ??? Immunization, other disease ??? Varicella ??? Urinary tract infection ??? Abnormal Pap smear 09/2009 [facility]+HRHPV Negative pap 10/2012 and interval yearly paps since 09/2009 were negative. Allergies Allergen Reactions ??? Promethazine Hcl Syncope Outpatient Encounter Prescriptions as of 01/29/2015 Medication Sig Dispense Refill ??? ethynodiol-ethinyl estradiol (KELNOR 1/35, 28,) 1-35 mg-mcg per tablet Take 1 tablet by mouth daily (every 24 hours). Follow package directions 84 tablet 4 ??? fluticasone (FLONASE) 50 mcg/actuation nasal spray Place 2 sprays into each nostril daily (every24 hours). Dose is for each nostril. 16 g 11 No facility-administered encounter medications on file as of 01/29/2015. Family History Problem Relation Age of Onset ??? Thyroid Disease Mother ??? High Cholesterol Mother ??? Thyroid Disease Maternal Grandmother ??? Diabetes Maternal Grandfather ??? High Cholesterol Maternal Grandfather ??? Thyroid Disease Maternal Grandfather ??? Thyroid Disease Paternal Grandmother Denies family history of breast, ovary, uterine, or colon cancers. No history of deep vein thrombosis or pulmonary embolism. History Social History ??? Marital Status: Single Spouse Name: N/A Number of Children: 0 ??? 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 Smoking status: Never Smoker ??? Smokeless tobacco: Never Used ??? Alcohol Use: 0.6 oz/week 1 Glasses of wine per week Comment: Alcoholic Drinks/day: few month ??? Drug Use: No ??? Sexual Activity: Partners: Male Control/ Protection: OCP ROS: Feeling well today, no fever/chills. No abdominal or pelvic pain. Objective: BP 115/83 mmHg Pulse 86 Wt 216 lb 6.4 oz (98.158 kg) LMP 01/07/2015 (Approximate) gonorrhea and chlamydia 12/2014: negative Assessment and Plan: Diagnosis ICD-10-CM ICD-9-CM 1. Counseling for control regarding intrauterine device (IUD) Z30.9 V25.09 Together we reviewed contraceptive options, focusing primarily on long acting reversible contraception. Destini is most interested in an IUD. We discussed duration of use and hormonal versus nonhormonal as well as side effects of the Paraguard, Mirena, and Silvia. We reviewed risk of irregular/changes tomenstrual bleeding patter for 3-6 months as well as cramping for 3-6 months. I encouraged verification of coverage with her insurance company. She will return with her next menses for IUD placement. She is likely to elect for Mirena or Silvia. We also discussed risks at placement and she was advised totake [id number] of Ibuprofen 1 hour prior to procedure. Negative gonorrhea and chlamydia 12/2014. Total time of this visit was 30 minutes, and 100% of this visit was spent in face to face counselingon the above topics. ER UP documented in this encounter Plan of Treatment Not on filedocumented as of this encounter Visit Diagnoses Diagnosis Counseling for control regarding i ntrauterine device (IUD) - Primary documented in this encounter Care Teams Greenskeeper Relationship Specialty Start Date End Date Ana Mehta, FRUIT AND VEGETABLE INSPECTOR, BUTTON BROACHER PCP - General 07/11/13 [address] [place] [address] documented as of this encounter
--- OUTSIDE RECORDS SUMMARY | 2021-11-01 11:30 | XMS_ITS | Encounter Summary ---
:1990 Author Organization [email or web address] Address [address] [place] [address] Care Team Providers Name Role Phone Ana Mehta APRN, CNP Primary Care Provider [phone] Reason for Visit Reason Comments INJURY, TOES Encounter Details Date Type Department Care Team Description 07/27/2013 Telephone [facility] Qasim Jacob DPM INJURY, TOES [address] [facility] [address] [place] [address] [place] [address] [phone] (Wo rk) Social History Tobacco Use Types Packs/Day Years Used Date Smoking Tobacco: Never Assessed Sex Assigned at Date Recorded Not on file documented as of this encounter Nursing Notes Qasim Jacob DPM - 07/27/2013 12:50 PM CDT Left message for patient to call regarding culture results on patient cell phone. documented in this encounter Plan of Treatment Not on filedocumented as of this encounter Visit Diagnoses Not on filedocumented in this encounter Care Teams Event Technician Relationship Specialty Start Date End Date Ana Mehta APRN, AVIVA PCP - General 07/11/13 [address] [place] [address] documented as of this encounter
--- OUTSIDE RECORDS SUMMARY | 2021-11-01 11:30 | XMS_ITS | Encounter Summary ---
:1990 Author Organization [employer] Address [address] [place] [address] Care Team Providers Name Role Phone Ana Mehta APRN, AVIVA Primary Care Provider [phone] Encounter Details Date Type Department Care Team Description 01/05/2014 Lab Visit [facility] Screening for lipoid disorde rs; [address] Screening for diabetes melli tus; [place] [address] Screening for thyroid disord er; [phone] Routine gynecol ogical examination Social History Tobacco Use Types Packs/Day Years Used Date Smoking Tobacco: Never Assessed Sex Assigned at Date Recorded Not on file documented as of this encounter Plan of Treatment Not on filedocumented as of this encounter Procedures Procedure Name Priority Date/Time Associated Diagnosis Comme nts GLUCOSE Routine 01/05/2014 7:42 AM Screening for diabetes Results for this [place] mellitus procedure are i n the results section. TSH AND FREE T4 Routine 01/05/2014 7:42 AM Screening for thyro id Results for this (FRT4 IF TSH [place] disorder procedure are in ABNORM) Routine gynecological the re sults examination section. LIPID PANEL AND Routine 01/05/2014 7:42 AM Screening for lipoi d Results for this DIRECT LDL(IF [place] disorders procedure are in NEEDED) the results section. documented in this encounter Results TSH AND FREE T4 (FRT4 IF TSH ABNORM) (01/05/2014 7:42 AM [place]) athologist Signature Thyroid 3.01 0.20 - HP CONVERSION Stimulating 4.50 Hormone Specimen Anatomical Collection Method Collection Time Receive d Time (Source) Location / / Volume Laterality 01/05/2014 7:42 AM 4 [place] 12:49 PM [place] Aisha Clark Barrera SUBRAMANIAN CNP LAB_1 Performing Organization Address City/[facility]/ZIP Code Phon e Number HP CONVERSION GLUCOSE (01/05/2014 7:42 AM [place]) P athologist Signature Lab Glucose 96 60 - 100 HP CONVERSION mg/dL Specimen Anatomical Collection Method Collection Time Receive d Time (Source) Location / / Volume Laterality 01/05/2014 7:42 AM 4 7:42 [place] AM [place] Narrative HP CONVERSION - 01/05/2014 8:56 AM [place] Performed at [facility], [address] [place] [address] Aisha Clark Barrera SUBRAMANIAN CNP LAB_1 Performing Organization Address [facility] Phon e Number HP CONVERSION Lipid Panel and Direct LDL(If Needed) (01/05/2014 7:42 AM [place]) [facility] gist Method Time Signature Cholesterol 131 0 - 200 HP CONVERSION mg/dL Triglycerides 85 0 - 149 HP CONVERSION mg/dL HDL Cholesterol 46 >39 mg/dL HP CONVERSION Cholesterol/HDL 2.8 HP CONVERSION Ratio Screen LDL Calculated 68 19 - 130 HP CONVERSION mg/dL Length Of Fast 8.0 HP CONVERSION Specimen Anatomical Collection Method Collection Time Receive d Time (Source) Location / / Volume Laterality 01/05/2014 7:42 AM 4 7:42 [place] AM [place] Narrative HP CONVERSION - 01/05/2014 8:56 AM [place] Performed at [facility], [address] [place] [address] Aisha Clark Barrera SUBRAMANIAN CNP LAB_1 Performing Organization Address City/[facility]/ZIP [facility] Phon e Number HP CONVERSION documented in this encounter Visit Diagnoses Diagnosis Screening for lipoid disorders Screening for diabetes mellitus Screening for thyroid disorder Routine gynecological examination documented in this encounter Care Teams Curve Saw Operator Relationship Specialty Start Date End Date Ana Mehta APRN, SEWER PIPE LAYER HELPER PCP - General 07/11/[address] [place] [address] [place] [address] documented as of this encounter
--- OUTSIDE RECORDS SUMMARY | 2021-11-01 11:30 | XMS_ITS | Encounter Summary ---
:1990 Author Organization [employer] Address [address] [place] [address] Care Team Providers Name Role Phone Janine Ana Paul APRN, DIE FORGER Primary Care Provider [phone] Encounter Details Date Type Department Care Team Description 07/30/2016 Surgery [facility] PERIOPERATIVE S [facility] Qasim Jacob, Removal Foreign Body [address] [facility] Driv e DPM Left Foot [place], [place] [address] [address] [facility] [phone] [place] [address] (Wo rk) Social History Tobacco Use Types [...] Sign Reading Time Taken Comments Blood Pressure 127/73 07/30/2016 10:24 AM CDT Pulse 82 07/30/2016 10:24 AM CDT Temperature 36.9 ??C (98.5 ??F) 07/30/2016 10:24 AM CDT Respiratory Rate 12 07/30/2016 10:24 AM CDT Oxygen Saturation 100% 07/30/2016 10:24 AM CDT Inhaled Oxygen Concentration - - [...] 11:50 AM CDT NAME: DESTINI TORREZ MR#: [id number] CSN: [id number] AUTHENTICATING CLINICIAN: Qasim Jacob DPM CONFIRM #: [id number] LOC: 725 OPERATIVE REPORT DATE OF OPERATION: 07/30/2016 : 1990 SURGEON: Qasim Jacob DPM SPRAY TECHNICIAN: Kobe Salmon NP (Kobe Salmon was present [...] anesthesia. After successful IV sedation and appropriate luuxu-zsj-awa-cause for surgical site identification, attention was directed [...] of Ancef IV piggyback preoperatively. After appropriate hlbbf-yua-hfh-cause for surgical site identification once again, the left ankle tourniquet was elevated to 200 mmHg once the left foot was exsanguinated utilizing a José Antonio's bandage. Attention was then directed to the puncture site at which time this was gently debrided and then probed. When probed deeply through the puncture wound, the glass was palpable with a Heaters hemostat. I was able to grab a [...] ry Residual foreign body in soft tissue Foot pain Pain in limb documented in this encounter Administered Medications Inactive [...] g in dextrose 100 ml IVPB (COMPLETED) 09 (Given - Provider: Aisha Bryant, SEMICONDUCTOR PACKAGES LEAK TESTER, MUSIC TEACHER) 2 g, Intravenous, at 200 mL/hr, ONCE, [...] dose, Pre- op Continuous Medication Order 07/28/2016 07/29/201607/3007/30/2016 lactated ringers infusion 0940 ( Started - Provider: Aisha Bryant, MORIS, MUSIC TEACHER)1024 (Anesthesia Fluid - Provider: Aisha Bryant APRN, MUSIC TEACHER) Intravenous, at 30 mL/hr, CONTINUOUS, Starting Stephania 07/30/16 at 09 30, Pre-op PRN Medication Order 07/28/2016 07/29/2016 07/30/2016 bupivacaine 0.25% (PF) (SENSORCAINE) injection 0951 (Given - Provider: Kobe Salmon APRN, DIE FORGER)1008 (Given - Provider: Qasim Jacob DPM) ONCE PRN, Starting Stephania 07/30/16 at 1007, Intra-op fentaNYL (SUBLIMAZE) injection 25-50 mcg 25-50 mcg, Intravenous, [id number], Other, Moderate to Severe Pain (pain score [...] (DEMEROL) injection 12.5 mg 12.5 mg, Intravenous, [id number], Shiverin g, Starting Stephania 07/30/16 at 0902, For 2 doses, Maximum cumulative dose is 25 mg. Do not give to patients receiving MAO inhibitors (e.g. phenelzine (NARDIL), tranyl cypromine (PARNATE), selegiline (ELDEPRYL))., PACU/Recovery morphine injectable 1-3 mg 1-3 mg, Intravenous, [id number], Other, Mo derate to Severe Pain (pain [...] PACU/Recovery documented in this encounter Care Teams Dump Grader Relationship Specialty Start Date End Date Ana Mehta APRN, DIE FORGER PCP - General 07/11/13 [address] [place] [id number] documented as of this encounter
--- OUTSIDE RECORDS SUMMARY | 2021-11-01 11:30 | XMS_ITS | Encounter Summary ---
:1990 Author Organization [facility] Address [address] [place] [address] Care Team Providers Name Role Phone Ana Mehta APRN, CNP Primary Care Provider [phone] Reason for Visit Reason Comments Follow-up Encounter Details Date Type Department Care Team Description 03/22/2014 Office Visit [facility] Ana Mehta Cou gh (Primary Dx); Medicine AVIVA SUBRAMANIAN Acute sinusitis [address] [place] [address] [place], [place] [phone] (Wo rk) Social History Tobacco Use Types Packs/Day Years Used Date Smoking Tobacco: Never Assessed Sex Assigned at Date Recorded Not on file documented as of this encounter Last Filed Vital Signs Vital Sign Reading Time Taken Comments Blood Pressure 122/80 03/22/2014 11:31 AM ELECTRICAL ACCESSORIES ASSEMBLER Pulse 82 03/22/2014 11:31 AM ELECTRICAL ACCESSORIES ASSEMBLER Temperature 36.7 ??C (98.1 ??F) 03/22/2014 11:31 AM ELECTRICAL ACCESSORIES ASSEMBLER Respiratory Rate - - Oxygen Saturation 97% 03/22/2014 11:31 AM ELECTRICAL ACCESSORIES ASSEMBLER Inhaled Oxygen Concentration - - Weight 95.3 kg (210 lb) 03/22/2014 11:31 AM ELECTRICAL ACCESSORIES ASSEMBLER Height - - Body Mass Index 32.89 01/05/2014 7:09 AM ELECTRICAL ACCESSORIES ASSEMBLER documented in this encounter Patient Instructions Patient InstructionsAna Mehta APRN ALLIANCES CONSULTANT - 03/22/2014 12:05 PM ELECTRICAL ACCESSORIES ASSEMBLER Plan - Start prednisone 20mg daily (in morning with food) - Start Flonase nasal spray (in pm before bed) - Start Tessalon cough suppressants three times daily - May use albuterol inhaler as needed for cough/chest tightness. - Start Sudafed every 4-6 hours for congestion. - Increase water intake. - Avoid smoke. - Rest! TRICAL ACCESSORIES ASSEMBLER documented in this encounter Progress Notes Ana Mehta APRN, CNP - 03/22/2014 12:17 PM CST Destini Torrez [id number] 1990 SUBJECTIVE: DESTINI TORREZ is a 23 y.o. female who presents to the clinic for evaluation of continuing cough and sinus pain following treatment with azithromycin. She was seen by a provider in internal medicine on 03/12, at which time she had had a cough and congestion for 2 weeks. Initially, her symptoms startedwith a productive cough, body aches, low-grade temperature and a runny nose. By 03/09, she had developed significant fatigue and was in bed all weekend. She started a Z-Bk on 03/12. Her energy has improved somewhat, but is still quite low. She reports cough throughout the day and night, mostly dry but occasionally productive of a yellow sputum. Her upper chest hurts when she coughs. At times, she reports chest tightness and dyspnea, especially when walking up stairs. At night, she has noticed a wheeze. She has no history of asthma or reactive airway and has never had to use an inhaler. Her sinuses are tender bilaterally and she has been getting more frequent headaches. The patient has a long history of recurrent sinus infections. She had nasal surgery several years ago, which seemed to help reducefrequency of sinus infections for a time. She reports that she knows what a sinus infection feels like and feels like her current symptoms are consistent with that. Nasal drainage has been yellow. She denies wheezing, dizziness, fever, or chills. She has been going to work despite her symptoms. She has been using NyQuil to help her sleep. She is not currently using a decongestant or nasal spray. PAST MEDICAL AND SURGICAL HISTORY REVIEWED IN [facility] FAMILY AND SOCIAL HISTORY REVIEWED IN [facility] MEDICATIONS: Outpatient Prescriptions Prior to Visit Medication Sig ??? [DISCONTINUED] azithromycin (ZITHROMAX) 250 mg tablet Take 2 tablets by mouth on day 1, then take 1 tablet by mouth daily on days 2-5. ??? ethynodiol-ethinyl estradiol (KELNOR , ,) 1-35 mg-mcg per tablet Take 1 tablet by mouth daily (every 24 hours). Follow package directions No facility-administered medications prior to visit. ALLERGIES: Promethazine hcl ROS as described above. Other pertinent positives include: As above OBJECTIVE BP 122/80 Pulse 82 Temp(Src) 98 ??F (36.7 ??C) (Oral) Wt 210 lb (95.255 kg) SpO2 97% GENERAL: This is a well-developed, well-nourished female in no acute distress. HEENT: Head AT/NC. Bilateral maxillary and frontal sinus tenderness. External ears normal. TMs clear, bony landmarks visible. Nares patent, turbinates without lesions or drainage. Oropharynx non-erythematous. Uvula midline. Dentition in good condition. NECK: Supple, thyroid without enlargement or nodules. No lymphadenopathy. LUNGS: Unlabored breathing. Respiratory rate 16. Symmetrical expansion, sibilant rhonchi in right lower lobe on posterior auscultation. HEART: Regular rate and rhythm. No murmurs. PSYCH: Well-oriented. Appropriate mood and affect. NEURO: Speech and gait are normal. CXR: FINDINGS: Two views were obtained. The lungs and costophrenic angles are clear. Heart size and pulmonary vascularity are within normal limits. There is no evidence of pneumothorax or pleural effusion. Bony thorax is unremarkable. ASSESSMENT/PLAN: Cough/Acute Sinusitis - XR Chest * PA and Left Lateral (Standard); Future - Antibiotics not indicated. - Initiate prednisone 20 mg once daily x5 days. - Initiate Flonase nasal spray, 2 sprays in each nostril once daily. - Initiate Sudafed q.4 to 6 hours p.r.n. - Initiate albuterol inhaler, 2 puffs as needed for cough every 4-6 hours. - Advised adequate rest, hydration, and avoidance of smoke exposure. - Advised followup if symptoms have not continued to improve in 5 days or she should develop new fever or worsening fatigue. Ana Mehta APRN, CNP [facility], [place] NB: A voice recognition dictation system was used for this note. Please excuse any typographical errors. TRICAL ACCESSORIES ASSEMBLER documented in this encounter Plan of Treatment Not on filedocumented as of this encounter Visit Diagnoses Diagnosis Cough - Primary Acute sinusitis Acute sinusitis, unspecified documented in this encounter Care Teams Manager Enterprise Content Management Relationship Specialty Start Date End Date Ana Mehta APRN, CNP PCP - General 07/11/[address] [place] [address] documented as of this encounter
--- OUTSIDE RECORDS SUMMARY | 2021-11-01 11:30 | XMS_ITS | Encounter Summary ---
:1990 Author Organization [employer] Address [address] [place] [address] Care Team Providers Name Role Phone Ana Mehta APRN, CNP Primary Care Provider [phone] Reason for Visit Reason Comments Annual Exam Encounter Details Date Type Department Care Team Description 01/21/2016 Office Visit [facility] Courtney Dexter Wodomi en's annual routine gynecological examination (Primary Dx); Services-ASSISTANT STORE LEADER R, WHITE SHOE RAGGER, AVIVA Family planning, IUD (intrauterine devic e) check/reinsertion/removal; [address] ear for cervical cancer screening [facility], [address] [facility] [address] [place] [address] [phone] (Wo rk) Social History Tobacco Use Types [...] Sign Reading Time Taken Comments Blood Pressure 148/90 01/21/2016 4:04 PM DECKHAND FISHING VESSEL Pulse 80 01/21/2016 4:04 PM DECKHAND FISHING VESSEL Temperature - - Respiratory Rate - - Oxygen Saturation - - Inhaled Oxygen Concentration - - Weight 96.1 kg (211 lb 12.8 oz) 01/21/2016 4:04 PM DECKHAND FISHING VESSEL Height 170.2 cm (5' 7) 01/21/2016 4:04 PM DECKHAND FISHING VESSEL Body Mass Index 33.17 01/21/2016 4:04 PM DECKHAND FISHING VESSEL documented in this encounter Progress Notes Joanne Mcelroy RN - 01/24/2016 10:20 AM DECKHAND FISHING VESSEL Quick Note: [facility]-windows mobile developer [address] [facility] [address] [facility] [address] Clinic 01/24/2016 Destini Cano [address] [facility] [address] Dear Desitni, I am writing to let you know that your Pap result is negative. This means that your test result wasnormal. No cancer or pre-cancerous cells were seen. Based on current cervical cancer screening recommendations, your next Pap should be in 3 years. Continue to schedule your annual preventive exams for your overall health. If you have questions about cervical cancer screening or your test results, call [phone]. Sincerely, Joanne Mcelroy RN on behalf of Dr. Leola Bryant, Room Service Associate [facility] Cervical Cancer Screening and Management HAND FISHING VESSEL Courtney Dexter APRN, TRAILER TECHNICIAN - 01/21/2016 4:16 PM CST Preventive Exam & Pelvic SUBJECTIVE: Destini Cano is a 25 y.o. female, who presents for a routine preventive physical exam. She does not have concerns today. LMP: Patient's last menstrual period was 12/31/2015 (approximate). Cycles are irregular and infrequent with Mirena IUD. No postcoital bleeding. Uses Mirena IUD for contraception. Condoms are not used. She is not interested in STD today. She does not have pelvic pain. She does not have vaginitis symptoms. Elevated BP today. Denies hx of BP concerns. States she was running late to her appointment and was in a duarte. Female Cancer Hx: She does not have a personal history of female cancers: Breast, Uterine, Ovarian, Cervical She does not have a family history of female cancers: Breast, Uterine, Ovarian, Cervical Obstetrical History: Obstetric History T0 TAB0 SAB0 E0 M0 L0 Medical/Surgical history: Past Medical History Diagnosis Date ??? Anemia ??? Immunization, other disease ??? Varicella ??? Urinary tract infection ??? Abnormal Pap smear 09/2009 [facility] ??? Encounter for insertion of intrauterine contraceptive device 02/07/2015 ??? Pap smear abnormality of cervix ??? Irregular menstrual cycle Past Surgical History Procedure Laterality Date ??? Nasal/sinus endoscopy 2004 Endonasal Sinus Surgery ??? [place] teeth extraction ??? Nasal polyp surgery ??? Premalig/benign skin lesion excision Mole removal Adverse Drug Reactions: Pt's Adverse Drug Reactions [...] Disorder Paternal Grandmother ??? High Cholesterol Father Sexual History: Number of partner in the last year: 1. 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) Marital Status: Single Children: 0, ages: N/A Pt does not have concerns for domestic violence Tobacco: 0 ETOH: 3 per wk Exercise: Beach [employer] videos Preventive Health Assessment: Pap: 2013, normal Mammogram: Never Labs: Lab Results Component Value Date/Time CHOLESTEROL 131 01/05/2014 0742 CHOLESTEROL/HDL RATIO SCREEN 2.8 01/05/2014 0742 HDL CHOLESTEROL 46 01/05/2014 0742 TRIGLYCERIDES 85 01/05/2014 0742 LDL CALCULATED 68 01/05/2014 0742 Lab Results Component Value Date/Time THYROID STIMULATING HORMONE 3.01 01/05/2014 0742 Lab Results Component Value Date/Time LAB GLUCOSE 96 01/05/2014 0742 Immunizations: Tdap 2012; Flu vaccine declines; HPV Series completed 2007 Review of Systems: With the exception of any items noted above, the remainder of the complete ROS is negative. OBJECTIVE: Vital Signs: BP 148/90 mmHg Pulse 80 Ht 5' 7 (1.702 m) Wt 211 lb 12.8 oz (96.072 kg) BMI 33.16 kg/m2 LMP 12/31/2015 (Approximate) General: Patient alert, in NAD. Obese HEENT: Pupils equal, sclera clear. Oropharynx normal. [...] tenderness, normal appearance. No discharge or lesions. IUD strings noted, 2 cm. Pap obtained. Uterus: normal size, shape, consistency and nontender. Adenexa: normal size, nontender, no masses. Anus: normal, no hemorrhoids, Rectal: deferred. Bladder: Nontender, no palpable masses Urethra: Nontender, no discharge Skin: No lesions. Neuro: Motor & sensory function all intact. Psychiatric: Alert & oriented with normal affect and insight. Patient does not appear depressed or anxious. ASSESSMENT: Routine preventive exam IUD Check Elevated BP PLAN: Medications: No new medications prescribed today. Labs: Pap collected. 100% condoms with all partners, STD prevention reviewed. BMI reviewed. Healthy diet and regular exercise advised. Wt loss advised. WW and increased exercise recommended. Recommend PCP follow up to check BP. RTC 1 year, sooner with any concerns. Dictation disclaimer: Some notes are completed with voice-recognition dictation software. Typographical errors may result. Please contact me via [employer] staff message if you note any errors requiring clarification. HAND FISHING VESSEL documented in this encounter Plan of Treatment Not on filedocumented as of this encounter Procedures Procedure Name Priority Date/Time Associated Comments Diagnosis PAP TEST ORDER Routine 01/21/2016 4:32 PM Pap smear for Result s for this DECKHAND FISHING VESSEL cervical cancer procedure ar e in screening the results section. ANATOMICAL PATH Routine 01/21/2016 4:32 PM Result s for this LIQUID BASED DECKHAND FISHING VESSEL procedure are i n the results section. documented in this encounter Results Pap Smear (01/21/2016 4:32 PM DECKHAND FISHING VESSEL) Specimen (Source) Anatomical Collection Method Collection Time Re ceived Time Location / / Volume Laterality 01/21/2016 4:32 PM DECKHAND FISHING VESSEL Narrative PN SOFT - 01/23/2016 5:16 PM DECKHAND FISHING VESSEL FINAL GYNECOLOGICAL CYTOLOGY REPORT Pathology #: [id number] ?Date Obtained: 01/21/2016 ? Date Received: 01/22/2016 INTERPRETATION/RESULTS: Negative for Intraepithelial Lesion or M alignancy. SPECIMEN ADEQUACY: Satisfactory for Evaluation. ??Endocervi elmo cells/transformation zone component present. Verified on 01/23/2016 ??by MINIE BACCAM , CT(ASCP) (electronic signature) CLINICAL NOTES: ?Abnormal bleeding: No, LMP: , Menstrual status: None ?Apply, Current form of therapy: IUD LIQUID BASED PAP SMEAR SPECIMEN TYPE: ?ROUTINE CERVICAL PAP TEST PLEASE NOTE: The pap smear is a screening test design ed to aid in the detection of cervical cancer and its pre cursor lesions. It is not a diagnostic procedure and neto uld not be used as the sole means of detecting cervical cancer. Both false-positive and false-negative report s may occur. Performed at [facility], [address] [place] [address] Courtney Dexter APRN, TRAILER TECHNICIAN LAB_1 Performing Organization Address City/State/ZIP Code Phon e Number SOFT [address] [place] [address] Pap Test Order (01/21/2016 4:32 PM DECKHAND FISHING VESSEL) Analysis Performed At [facility] logist Time Signature Pap Smear Collected PN SOFT Monolayer tracking test Specimen Anatomical Collection Method Collection Time Receive d Time (Source) Location / / Volume Laterality 01/21/2016 4:32 PM 6 8:46 DECKHAND FISHING VESSEL AM DECKHAND FISHING VESSEL Narrative BRISEYDA FONG - 01/21/2016 4:33 PM DECKHAND FISHING VESSEL Performed at [facility], [address] [place] [address] CLIA number [id number] Courtney Dexter APRN, CNP LAB_1 Performing Organization Address City/State/ZIP Code Phon e Number PN HETAL [address] [place] [address] documented in this encounter Visit Diagnoses Diagnosis Women's annual routine gynecological exa mination - Primary Family planning, IUD (intrauterine devic e) check/reinsertion/removal Surveillance of previously prescribed in trauterine contraceptive device Pap smear for cervical cancer screening Screening for malignant neoplasm of the cervix documented in this encounter Care Teams Geothermal Installer Relationship Specialty Start Date End Date Ana Mehta APRN, AVIVA PCP - General 07/11/13 [address] [place] [id number] documented as of this encounter
--- OUTSIDE RECORDS SUMMARY | 2021-11-01 11:30 | XMS_ITS | Encounter Summary ---
:1990 Author Organization [employer] Address [address] [place] [address] Care Team Providers Name Role Phone Ana Mehta APRN, CNP Primary Care Provider [phone] Reason for Referral Procedure/Equipment (Routine) - Incomplete Specialty Diagnoses / Procedures Referred By Contact Refer red To Contact Diagnoses Surgery, elective Qasim Jacob DPM Procedures DEVON Inlight Camera Images [address] [place] [address] Referral ID Status Reason Start Date Expiration Date Visits V isits Requested Authorized [id number] Incomplete 07/29/2016 10/28/2017 1 1 Procedure/Equipment (Routine) - Incomplete Specialty Diagnoses / Procedures Referred By Contact Refer red To Contact Diagnoses Surgery, elective Qasim Jacob DPM Procedures DEVON Fluoroscopy Up To 1 Hour [address] [place] [place] [address] Referral ID Status Reason Start Date Expiration Date Visits V isits Requested Authorized [id number] Incomplete 07/29/2016 10/28/2017 1 1 Encounter Details Date Type Department Care Team Description 07/29/2016 Notes/Orders [facility] Qasim Jacob, Surger y, elective CENTER DPM (Primary Dx) [address] [facility] [place] [address] [place] [phone] (Wo rk) Social History Tobacco Use Types [...] on filedocumented as of this encounter Results DEVON Fluoroscopy Up To 1 Hour (07/30/2016 10:15 AM CDT) Anatomical Region Laterality Modality Computed Radiography Specimen (Source) Anatomical Location Collection Method / Collectio n Time Received Time / Laterality Volume Qaism Jacob DPM RAD NON-REPORTABLES DEVON Inlight Camera Images (07/30/2016 8:41 AM CDT) Anatomical Region Laterality Modality Endoscopy Specimen (Source) Anatomical Location Collection Method / Collectio n Time Received Time / Laterality Volume Qasim Jacob DPM RAD NON-REPORTABLES documented in this encounter Visit Diagnoses Diagnosis Surgery, elective - Primary Unspecified elective surgery for purpose s other than remedying health states documented in this encounter Care Teams School Boat Driver Relationship Specialty Start Date End Date Ana Mehta, DISTRIBUTION A CLASS LINEMAN, ENTERTAINMENT USHER PCP - General 07/11/13 [address] [place] [address] documented as of this encounter
--- OUTSIDE RECORDS SUMMARY | 2021-11-01 11:30 | XMS_ITS | Encounter Summary ---
:1990 Author Organization [facility] Address [address] [place] [address] Care Team Providers Name Role Phone Ana Mehta APRN, AVIVA Primary Care Provider [phone] Reason for Visit Reason Comments LAB RESULTS Encounter Details Date Type Department Care Team Description 07/21/2013 Telephone [facility] RONNY Qasim Lopez, MLEVA LAB RESULTS [address] [facility] [place] [address] [address] [place], [place] [id number] (Wo rk) Social History Tobacco Use Types Packs/Day Years Used Date Smoking Tobacco: Never Assessed Sex Assigned at Date Recorded Not on file documented as of this encounter Nursing Notes Cherelle De Los Santos, RN - 07/21/2013 4:52 PM CDT Patient calling for resuts of fungal culture and stain. In process, as of today it shows no yeast orfungal elements. documented in this encounter Plan of Treatment Not on filedocumented as of this encounter Visit Diagnoses Not on filedocumented in this encounter Care Teams Platform Attendant Relationship Specialty Start Date End Date Ana Mehta APRN, ARMHOLE PRESSER PCP - General 07/11/13 [address] [place] [address] documented as of this encounter
--- OUTSIDE RECORDS SUMMARY | 2021-11-01 11:30 | XMS_ITS | Encounter Summary ---
:1990 Author Organization [facility] Address [address] [place] [address] Care Team Providers Name Role Phone Mehta, Ana Paul APRN, CNP Primary Care Provider [phone] Reason for Visit Reason Comments Toe Pain Encounter Details Date Type Department Care Team Description 07/14/2013 Office Visit [facility] Alejandro Ball DO Felon (Primary Dx); Urgent Care [address] Toe pain [address] [place], [place] [address] [phone] (Wo rk) Social History Tobacco Use Types Packs/Day Years Used Date Smoking Tobacco: Never Assessed Sex Assigned at Date Recorded Not on file documented as of this encounter Last Filed Vital Signs Vital Sign Reading Time Taken Comments Blood Pressure 112/80 07/14/2013 9:13 AM CDT Pulse - - Temperature 36.9 ??C (98.4 ??F) 07/14/2013 9:13 AM CDT Respiratory Rate - - Oxygen Saturation - - Inhaled Oxygen Concentration - - Weight 90.6 kg (199 lb 12.8 oz) 07/14/2013 9:13 AM CDT Height 172.7 cm (5' 8) 07/14/2013 9:13 AM CDT Body Mass Index 30.38 07/14/2013 9:13 AM CDT documented in this encounter Patient Instructions Patient InstructionsDarshana Camp 07/14/2013 9:[address] Kwaku Ball DO, CAQ [facility] Primary [facility] Sports Medicine Bookkeeping Clerk: Allison Henry Please fax all paperwork correspondence to [phone] [facility] Nurse Line: [phone] Please contact [facility] Nurse line for all requests and questions. Medication Requests: Prescriptions are not filled on Weekends or on Weekdays after 3:00PM For all medication refills: Request a refill using MyChart or contact your Pharmacy documented in this encounter Progress Notes Alejandro Ball DO - 07/14/2013 3:24 PM CDT Progress Notes signed by Alejandro Ball DO at 07/15/13 0737 Author: Alejandro Ball DO Service: (none) Author Type: Physician Filed: 07/15/13 0737 Note Time: 07/14/131815 Status: Signed Mover: Alejandro Ball DO (Physician) NAME: DESTINI TORREZ MR#: [id number] CSN: [id number] AUTHENTICATING CLINICIAN: Alejandro Ball DO CONFIRM #: [id number] LOC: 711 CLINIC PROGRESS NOTE DATE OF VISIT: 07/14/2013 : 1990 CHIEF COMPLAINT: Right toe pain. HPI: Destini is a healthy-appearing 22-year-old woman here for complaints of persistent right 4th toe pain and infections. She states she had an infection develop in the right 4th toe first on June 06, 2013.She was treated by her primary care physician with Keflex. The symptoms went away, but on the completion of the antibiotics they returned. She was then seen in urgent care and she have an I and D of a blister performed which had some pus. She was then started on clindamycin and she states after the medication was stopped she had symptoms return again. She was recently seen by her primary care physician and started again on Keflex. She is worried because of the recurrent symptoms and she is going on a trip in 10 days. She has had a culture test that revealed no evidence for staph infection. She has also tried elevation, soaking in warm water without any significant improvement. It was recommended she see a surveillance manager but she cannot get in at this time. PAST MEDICAL HISTORY: Negative for any chronic medical conditions. PREVIOUS SURGERIES: Include a mole resection and nasal polyp removal. FAMILY HISTORY: Significant for cardiovascular disease and diabetes. SOCIAL HISTORY: She is a nonsmoker. She is right-handed. 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 ADR/ALLERGIES: PROMETHAZINE. REVIEW OF SYSTEMS: Negative for fevers, chills or sweats. Other review of systems negative for cardiovascular, pulmonary, gastrointestinal, neurologic, renal or endocrine problems. Pain is rated 7/10. Height 68 inches tall. Weight 199 pounds. Temperature 98.4 degrees. Blood pressure 112/80. PHYSICAL EXAM: Patient is alert and oriented x3, in no acute distress. Gait is antalgic. Skin is warm and dry without lesions or rashes. Neurovascular status of right and left lower extremities is intact. Left foot and toe exam is normal. Right foot and 4th toe exam reveals a tense swelling at the distal 4th phalanxwith tenderness to palpation. Symptoms are consistent with a felon. There is a small blister on the lateral side of the toe with pus IMAGING: Not indicated. ASSESSMENT/PLAN: Right 4th toe felon. Diagnosis and treatment discussed with patient. Recommend incision and drainagewith packing. The patient elected to proceed with the procedure. After risks and benefits were discussed, 5 mL of 1% lidocaine was injected into the right 4th toe for a digital block. The patient had good relief of the block. I and D was then performed of the felon with some pus removed. It was then packed with iodoform gauze and dressed. I recommend that she follow up with Dr. Jacob in 1 week for a recheck to see us further I and D or washout needs to be performed. She is to continue on the Keflex medication. JUVENTINO:IWONA C: R:07/14/13 15:47 CONFIRM#:[id number] documented in this encounter Plan of Treatment Not on filedocumented as of this encounter Visit Diagnoses Diagnosis Felon - Primary Toe pain Pain in limb documented in this encounter Care Teams Ict Programmer Relationship Specialty Start Date End Date Ana Mehta, ON CALL, HOMEMAKER COMPANION PCP - General 07/11/13 [address] [place] [address] documented as of this encounter
--- OUTSIDE RECORDS SUMMARY | 2021-11-01 11:30 | XMS_ITS | Encounter Summary ---
:1990 Author Organization [employer] Address [address] [place] [address] Care Team Providers Name Role Phone Leah Styles MD Primary Care Provider Reason for Visit Reason Comments Toe Pain Encounter Details Date Type Department Care Team Description 06/27/2013 Telephone [facility] Leah Smith MD Toe Pain [address] [place] [address] [place] [address] [phone] (Wo rk) Social History Tobacco Use Types Packs/Day Years Used Date Smoking Tobacco: Never Assessed Sex Assigned at Date Recorded Not on file documented as of this encounter Nursing Notes Massiel Andrade - 06/27/2013 8:41 AM CDT Recurrence of infection right 4th toe.It was better for a few weeks and the past 12 hours it is swelling and huge. She will go to now. William Farmer - 06/27/2013 8:07 AM CDT The patient called requesting a call from a nurse regarding Toe Pain. documented in this encounter Plan of Treatment Not on filedocumented as of this encounter Visit Diagnoses Not on filedocumented in this encounter Care Teams Warranty Administrator Relationship Specialty Start Date End Date Leah Styles MD PCP - General 06/07/13 07/10/13 [address] [place] [address] documented as of this encounter
--- OUTSIDE RECORDS SUMMARY | 2021-11-01 11:30 | XMS_ITS | Encounter Summary ---
:1990 Author Organization [employer] Address [address] [place] [address] Care Team Providers Name Role Phone Ana Mehta APRN, CNP Primary Care Provider [phone] Reason for Visit Reason Comments FACIAL PAIN Pharyngitis Headache Cough Encounter Details Date Type Department Care Team Description 12/26/2013 Office Visit [facility] Ana Mehta, Acu te sinusitis (Primary Dx); Medicine AVIVA SUBRAMANIAN Abdominal wall strain [address] [address] [place] [address] [place], [place] [phone] (Wo rk) Social History Tobacco Use Types Packs/Day Years Used Date Smoking Tobacco: Never Assessed Sex Assigned at Date Recorded Not on file documented as of this encounter Last Filed Vital Signs Vital Sign Reading Time Taken Comments Blood Pressure 116/78 12/26/2013 1:48 PM LAP CUTTER TRUER OPERATOR Pulse 87 12/26/2013 1:48 PM LAP CUTTER TRUER OPERATOR Temperature 36.4 ??C (97.5 ??F) 12/26/2013 1:48 PM LAP CUTTER TRUER OPERATOR Respiratory Rate - - Oxygen Saturation 98% 12/26/2013 1:48 PM LAP CUTTER TRUER OPERATOR Inhaled Oxygen Concentration - - Weight 94.3 kg (208 lb) 12/26/2013 1:48 PM LAP CUTTER TRUER OPERATOR Height - - Body Mass Index 31.63 07/18/2013 1:34 PM CDT documented in this encounter Patient Instructions Patient InstructionsHancock, Ana C, CAR BODY INSPECTOR, DOOR TO DOOR FUNDRAISING COLLECTOR - 12/26/2013 2:17 PM LAP CUTTER TRUER OPERATOR Bacterial Sinusitis - Initiate antibiotic as prescribed. - Use acetaminophen or ibuprofen for pain relief. May dose every 4-6 hours. - Decongestant nasal spray such as Afrin for no more than 3 days. - Steam shower or increase humidity at home. - Maintain adequate hydration (drink 6-10 glasses of liquid a day to thin mucus). - Use saline nasal spray or irrigation once daily. - Apply warm facial compresses for 5-10 minutes 3 or more times a day. - Avoid exposure to cigarette smoke or fumes. CUTTER TRUER OPERATOR documented in this encounter Progress Notes Ana Mehta APRN, CNP - 12/26/2013 2:37 PM CST Destini Torrez [id number] 1990 SUBJECTIVE: DESTINI TORREZ is a 23 y.o. female who presents to the clinic for evaluation of sinus infection. She has a history of frequent sinus infections starting at the age of 32 years old. She underwent sinus surgery in 2004 and since then has had infections less frequently. Approximately 4 weeks ago, she developed nasal congestion, sinus pressure, and postnasal drip. She then developed a cough that was worse in the morning. She tried a [employer] consult 3 weeks ago and was told that it was likely a viral infection and she should continue nasal saline rinses and supportive care. Her symptoms have not improved since then and she is now experiencing bilateral maxillary sinus tenderness and pain. She feels fatigued and run down. She feels hot and cold, but has not documented a fever. Her nasal drainage various between yellow to green. While coughing, she noticed a pain in her left abdomen. She describes it as a tingling sensation. She is able to trigger the symptom if she bends forward. She has not noticed pain returned Dr. in with cough, sneeze, or bowel movement. She is having regular bowel movements and denies constipation. Denies abdominal bloating or distention. PAST MEDICAL AND SURGICAL HISTORY REVIEWED IN [facility] FAMILY AND SOCIAL HISTORY REVIEWED IN [facility] MEDICATIONS: Outpatient Prescriptions Prior to Visit Medication Sig ??? ethynodiol-ethinyl estradiol (KELNOR , ,) 1-35 mg-mcg per tablet Take 1 tablet by mouth daily (every 24 hours). Follow package directions No facility-administered medications prior to visit. ALLERGIES: Promethazine hcl ROS as described above. Other pertinent positives include: As above OBJECTIVE BP 116/78 Pulse 87 Temp(Src) 97.6 ??F (36.4 ??C) (Oral) Wt 208 lb (94.348 kg) BMI 31.63 kg/m2 SpO2 98% GENERAL: This is a well-developed, well-nourished female in no acute distress. HEENT: Head AT/NC. Maxillary sinuses tender bilaterally. External ears normal. TMs clear, bony landmarks visible, retracted bilaterally. Nares patent, turbinates edematous, large polyp in the left nasal cavity. Oropharynx non- erythematous. Uvula midline. Dentition in good condition. NECK: Supple, thyroid without enlargement or nodules. No lymphadenopathy. LUNGS: Symmetrical expansion, CTA in all hwang bilaterally. HEART: Regular rate and rhythm. No murmurs. ABDOMEN: Mild LLQ tenderness. Otherwise, abdomen is soft, non-tender, no guarding or masses. No HSM.No reproducible hernia. PSYCH: Well-oriented. Appropriate mood and affect. ASSESSMENT/PLAN: Acute sinusitis - Described pathophysiology of acute sinusitis. I educated the patient on preventative strategies including nasal saline rinses, adequate hydration, and nasal steroids. - Initiate amoxicillin-clavulanate (AUGMENTIN) 875-125 mg per tablet; Take 1 tablet by mouth 2 timesdaily for 10 days. - Initiate fluticasone (FLONASE) 50 mcg/actuation nasal spray; Place 2 sprays into each nostril daily (every 24 hours). Dose is for each nostril. - Return if symptoms have not improved substantially on treatment plan. Abdominal discomfort, likely muscle strain - Encouraged adequate stretching and abdominal exercises to improve core strength. If symptoms persist past 4 weeks, return for general surgery consultation to rule out abdominal wall hernia. If symptoms should worsen, advised followup immediately. CABRERA Coronel [facility] NB: A voice recognition dictation system was used for this note. Please excuse any typographical errors. CUTTER TRUER OPERATOR documented in this encounter Plan of Treatment Not on filedocumented as of this encounter Visit Diagnoses Diagnosis Acute sinusitis - Primary Acute sinusitis, unspecified Abdominal wall strain Other specified sites of sprains and str ains documented in this encounter Care Teams Risk Engineer Relationship Specialty Start Date End Date Ana Mehta APRN, AVIVA PCP - General 07/11/[address] [place] [address] documented as of this encounter
--- OUTSIDE RECORDS SUMMARY | 2021-11-01 11:30 | XMS_ITS | Encounter Summary ---
:1990 Author Organization [employer] Address [address] [place] [address] Care Team Providers Name Role Phone Ana Mehta APRN, CNP Primary Care Provider [phone] Reason for Referral Consult/Transfer Care (Routine) - Closed Specialty Diagnoses / Procedures Referred By Contact Refer red To Contact Diagnoses Left foot pain Rosina Garcia APRN, CNP [address] [place] [address] Referral ID Status Reason Start Date Expiration Date Visits Requ ested Visits Authorized [id number] Closed 07/27/2016 10/26/2017 1 1 Scheduling Instructions Your provider has recommended an appoint ment with [facility]. You may call [phone] to schedule your appoi ntment. If you do not schedule an appointment within the next 1 to 3 business days, we will call you to help arrange your appointment. We suggest you call your city hospital insurance company about your coverage and benefits for this appointment. Procedure/Equipment (Routine) - Incomplete Specialty Diagnoses / Procedures Referred By Contact Refer red To Contact Diagnoses Left foot pain Rosina Garcia APRN, Procedures XR Foot Lt 3+ Views GRAIN ELEVATOR OPERATOR [address] [place] [address] Referral ID Status Reason Start Date Expiration Date Visits V isits Requested Authorized [id number] Incomplete 07/27/2016 10/26/2017 1 1 Reason for Visit Reason Comments Foot Pain Encounter Details Date Type Department Care Team Description 07/27/2016 Hospital Encounter [facility] Rosina Garcia, Left foot pain; Care AVIVA SUBRAMANIAN Foreign body (FB) in soft tissue [address], [address] [place] [address] Social History Tobacco Use Types Packs/Day Years [...] Sign Reading Time Taken Comments Blood Pressure 126/82 07/27/2016 8:30 AM CDT Pulse 81 07/27/2016 8:30 AM CDT Temperature 36.6 ??C (97.9 ??F) 07/27/2016 8:30 AM CDT Respiratory Rate 16 07/27/2016 8:30 AM CDT Oxygen Saturation - - Inhaled Oxygen Concentration - - Weight - - Height - - Body Mass Index - - documented in this encounter Discharge Instructions Discharge InstructionsRosina Garcia APRN, CNP - 07/27/2016 9:26 AM CDT To be seen at [facility] or [facility] as will need US guide to remove foreign body documented in this encounter Medications at Time of Discharge Medication Sig Dispensed Refills Start Date End Date fluticasone (AKA Place 2 sprays into 48 g 3 02/13/2015 FLONASE) 50 MCG/ACT each nostril daily nasal solution (every 24 hours). Dose is for each nostril. levonorgestrel (AKA 1 each by 1 each 0 02/07/201503/11 MIRENA) 20 MCG/24HR Intrauterine route IUDIndications: See Admin Encounter for insertion Instructions. To be of intrauterine administered once contraceptive device every 5 years in clinic office. documented as of this encounter ED Notes Rosina Garcia APRN, AVIVA - 07/27/2016 9:30 AM CDT NAME: DESTINI TORREZ MR#: [id number] CSN: [id number] AUTHENTICATING CLINICIAN: CAITLYN Mo CONFIRM #: [id number] LOC: 520 URGENT CARE PROGRESS NOTE DATE OF VISIT: 07/27/2016 : 1990 SUBJECTIVE: Patient is a pleasant 25-year-old female, who presents to the urgent care with possible foreign bodyin the bottom of her left foot. Patient states on she was doing dishes and she broke a little glass dish and stepped on some glass and feels like there is a piece of glass in the bottom of herleft foot. She has not noticed any redness or swelling. She does walk on the inside of her foot because it is slightly painful to walk on the outer surface of her foot. She did try some home remedies to try to remove the glass without any change in symptoms. She has not taken any [id number] painmedication. Last tetanus was 2011. She is not diabetic. MEDICATIONS: Reviewed in [facility]. ADVERSE DRUG REACTIONS: Reviewed in [facility]. PAST MEDICAL/SURGICAL HISTORY: Reviewed in [facility]. REVIEW OF SYSTEMS: Negative except for what is noted above. OBJECTIVE: VITAL SIGNS: Reviewed in Epic and within normal limits. GENERAL APPEARANCE: Alert, cooperative, no acute distress. HEENT: Head normocephalic, without obvious abnormality. LUNGS: Clear to auscultation. HEART: Regular rate and rhythm. SKIN: Patient does have an area on the bottom of her left foot more laterally and midfoot where it is tender to palpation where she feels the foreign body. There is no surrounding erythema. No obvious protrusion from the skin. Remainder of left foot is unremarkable. IMAGING: Left foot 3 views. There does appear to be a foreign body noted at the area that she is complaining of pain. ASSESSMENT: 1.Left foot pain. 2.Foreign body. PLAN: Discussed with patient at this time she will likely need to see Ortho as they will need ultrasound-guided equipment as this has been 4 days that she has had this piece of glass in the bottom of her foot. It is not feeling superficial so I did not attempt to remove the foreign body. Tetanus is up to date. There is no surrounding erythema to warrant any antibiotics at this time. Patient was given a referral. She will call this morning and make a followup appointment either at [place] or [facility] where they have ultrasound. Patient was discharged in stable condition. TAP:MEDQ C: CONFIRM #: [id number] documented in this encounter Plan of Treatment Scheduled Referrals Name Type Priority Associated Diagnoses Order S chedule Orthopaedic Consult Referral Routine Left foot pain Ordere d: 07/27/2016 Adult/Peds documented as of this encounter Procedures Procedure [...] foreign body. No fracture. Rosina Garcia APRN, AVIVA RAD GD documented in this encounter Visit Diagnoses Diagnosis Left foot pain Pain in limb Foreign body (FB) in soft tissue Residual foreign body in soft tissue Triage Assessment Note - Radha Mitchell RN - 07/27/2016 8:27 AM CDT Pt with glass in left foot. She broke a glass on and cleaned it up but she stepped on a small piece of glass. PT now has pain in her left foot. Pt denies redness documented in this encounter Care Teams Contract Project Manager Relationship Specialty Start Date End Date Ana Mehta APRN, GRAIN ELEVATOR OPERATOR PCP - General 07/11/[address] [place] [address] documented as of this encounter
--- OUTSIDE RECORDS SUMMARY | 2021-11-01 11:30 | XMS_ITS | Encounter Summary ---
:1990 Author Organization [facility] [facility] Address [address] [place] [address] Care Team Providers Name Role Phone Ana Mehta APRN, CNP Primary Care Provider [phone] Reason for Visit Reason Comments Procedure Encounter Details Date Type Department Care Team Description 02/07/2015 Office Visit [facility] Aisha Rust Encou nter for insertion of intrauterine contraceptive device (Primary Dx); Services-TABLE MAKER AVIVA SUBRAMANIAN Encounter for test, result unk nown [id number] [address] [address] [facility], [facility] [address] [place] [address] [phone] Social History Tobacco Use Types Packs/Day Years Used Date Smoking Tobacco: Never Assessed Sex Assigned at Date Recorded Not on file documented as of this encounter Last Filed Vital Signs Vital Sign Reading Time Taken Comments Blood Pressure 124/79 02/07/2015 7:26 AM DAMAGE ADJUSTER Pulse 89 02/07/2015 7:26 AM DAMAGE ADJUSTER Temperature - - Respiratory Rate - - Oxygen Saturation - - Inhaled Oxygen Concentration - - Weight 98.7 kg (217 lb 9.6 oz) 02/07/2015 7:26 AM DAMAGE ADJUSTER Height - - Body Mass Index 33.58 01/07/2015 9:25 AM DAMAGE ADJUSTER documented in this encounter Patient Instructions Patient InstructionsMaryanne Duron MA - 02/07/2015 7:53 AM CST GE ADJUSTER documented in this encounter Progress Notes Aisha Rust APRN, AVIVA - 02/07/2015 8:03 AM DAMAGE ADJUSTER Quick Note: UPT negative at apt today. MS-BEFORE SCHOOL BABYSITTER GE ADJUSTER Aisha Rust APRN, CNP - 02/07/2015 8:02 AM CST Chief Complaint: IUD insertion SUBJECTIVE: Destini Cano is a 24 y.o. female, who presents to clinic for IUD insertion. LMP:02-06-2015. Current contraception OCs. Pt does not have concerns for today. Last IC was Wednesday, stopped pills last to get menses for today. Used 100% condoms for back up with last IC and all month with every IC encounter due to inconsistent OC use for years. Pt advised that if she were , this procedure would cause a miscarriage. UPT negative today and she would like to proceed with insertion. The procedure was explained on 01-29-[address] Clarke . R/B/SE were discussed and they were reviewed again today, including risk for uterine perforation. Additional questions answered. I explained that I would measure the uterine cavity with uterine sound and will then decide b/w Mirena vs Skylafor insertion. OBJECTIVE: Procedure Note - IUD Insertion Procedure: Mirena IUD placement Vital Signs: LMP Vitals Item Reading ??? LMP 01/07/2015 UPT:negative Consent: Verbal and written consent for IUD placement was obtained after discussion of the procedureand it's risks/benefits/alternatives. Indications: Contraception Procedure Details: Pelvic Exam: External genitalia: normal without lesions. Vagina: normal appearing vaginal epithelium, no discharge or lesions. Cervix: No CMT, normal appearance without discharge or lesions. Uterus: normal size and shape, mid plane and nontender. A speculum was placed in the vagina. The cervix was visu alized and cleansed with betadine. A single-tooth tenaculum was placed slowly on the anterior lip ofthe cervix. The uterus was sounded with the white Flexisound to 7cm. The blue plastic Canal Finder was also used to gently dilate the os. The Mirena IUD was placed, without difficulty within the uterus, using the standard, company-recommended, technique. IUD strings were trimmed at 2 cm from the os. Te naculum was removed. Cervix was hemostatic. Pt tolerated the procedure well. Complications: None IUD Details: Lot #: [id number], Expiration Date: ASSESSMENT: Mirena IUD insertion PLAN: Call with any signs of infection, fever, acute abdominal pain, or heavy bleeding. Ibuprofen or tylenol prn cramping. Condoms for backup X 7 days. No tampons for 7 days. Instructed on string checks monthly. Reviewed that irregular bleeding and mild abdominal cramping can be normal for the first 3-6 months. Return to clinic in 30 days for IUD check or before then if concerns. GE ADJUSTER documented in this encounter Miscellaneous Notes Miscellaneous - 03/25/2016 11:46 PM CSTNotes Recorded by Aisha Rust APRN, CNP on 02/07/2015 at 8:03 AMUPT negative at apt today. MARCELL GE ADJUSTER documented in this encounter Plan of Treatment Not on filedocumented as of this encounter Procedures Procedure Name Priority Date/Time Associated Diagnosis Comme nts POCT URINE Routine 02/07/2015 7:40 AM Encounter for Results for this DAMAGE ADJUSTER test, procedure ar e in result unknown the results section. documented in this encounter Results POCT URINE (02/07/2015 7:40 AM DAMAGE ADJUSTER) [facility] Method Time Signature Urine Negative HP CONVERSION Test - POC Control Line Yes HP CONVERSION Present, Clear Background - Internal control Cartridge Lot# [id number] HP CONVERSION Specimen (Source) Anatomical Collection Method Collection Time Re ceived Time Location / / Volume Laterality 02/07/2015 7:40 AM DAMAGE ADJUSTER Transcriptions 03/25/2016 11:46 PM CSTNotes Recorded by Aisha Rust APRN, CNP on 02/07/2015 at 8:03 AMUPT negative at apt today. MARCELL Aisha M Barrera OFFICE LEAD, BEFORE SCHOOL BABYSITTER PN POINT OF CARE TESTS Performing Organization Address City/State/ZIP Code Phon e Number HP CONVERSION documented in this encounter Visit Diagnoses Diagnosis Encounter for insertion of intrauterine contraceptive device - Primary Encounter for test, result unk nown documented in this encounter Care Teams Telephone Order Supervisor Relationship Specialty Start Date End Date Ana Mehta APRN, BEFORE SCHOOL BABYSITTER PCP - General 07/11/13 [id number] [address] [place] [id number] documented as of this encounter
--- OUTSIDE RECORDS SUMMARY | 2021-11-01 11:30 | XMS_ITS | Encounter Summary ---
:1990 Author Organization [facility] Address [address] [place] [address] Care Team Providers Name Role Phone Ana Mehta APRN, AVIVA Primary Care Provider [phone] Reason for Visit Reason Comments URI Encounter Details Date Type Department Care Team Description 01/19/2014 Nurse Triage [facility] [place] [address] [facility] [place] [address] [facility] [phone] [place], [place] [address] (Wo rk) Social History Tobacco Use Types Packs/Day Years Used Date Smoking Tobacco: Never Assessed Sex Assigned at Date Recorded Not on file documented as of this encounter Nursing Notes Iris Khalil - 01/19/2014 6:56 PM CST Protocol: SINUS INFECTION FOLLOW-UP [id number] Affirmative: [1] Taking antibiotic < 48 hours AND [2] fever persists (all triage questions negative) Disposition of Home Care suggested. Pt and boyfriend calling, report that she has high fever of 102.4 (orally). Pt explains that she hashad sinus infection starting about a month ago and her PCP ordered a 2nd course of Augmentin to start yesterday 01/18/14. Her cough and congestion persist today, and she vomited x1 today. Care advice and expected course were reviewed. She was instructed to go to /ER tonight for temp greater than 103;also go in for any fever lasting more than 48 hours after starting the antibiotic. She states understanding and denies additional questions. RIG ROUGHNECK documented in this encounter Plan of Treatment Not on filedocumented as of this encounter Visit Diagnoses Not on filedocumented in this encounter Care Teams Lap Hand Tool Relationship Specialty Start Date End Date Ana Mehta, BUSINESS PRACTICES SUPERVISOR, SKIN THERAPIST PCP - General 07/11/13 [address] [place] [id number] documented as of this encounter
--- OUTSIDE RECORDS SUMMARY | 2021-11-01 11:31 | XMS_ITS | Encounter Summary ---
:1990 Author [facility] Address [address] [place] [address] Care Team Providers Name Role Phone Kaelyn Lr PA-C Primary Care Provider Encounter Details Date Type Department Care Team Description 06/14/2010 PN Conversion Only [facility] Meagan Gordon PA-C [address] [address] [place], [place] [phone] (Wo rk) Social History Tobacco Use Types Packs/Day Years Used Date Smoking Tobacco: Never Assessed Sex Assigned at Date Recorded Not on file documented as of this encounter Plan of Treatment Not on filedocumented as of this encounter Visit Diagnoses Not on filedocumented in this encounter Care Teams Chief Of Harbor Patrol Relationship Specialty Start Date End Date Kaelyn Lr PA-C PCP - General 05/18/10 06/05/13 [address] [facility] [address] [place] [address] documented as of this encounter
--- OUTSIDE RECORDS SUMMARY | 2021-11-01 11:31 | XMS_ITS | Encounter Summary ---
:1990 Author Organization [employer] Address [address] [place] [address] Care Team Providers Name Role Phone Adeline Kaelyn Plata PA-C Primary Care Provider Encounter Details Date Type Department Care Team Description 10/10/2010 Lab Visit [facility] ASCUS favor benign (Primary [address] Dx) [place], [place] [address] Social History Tobacco Use Types Packs/Day Years Used Date Smoking Tobacco: Never Assessed Sex Assigned at Date Recorded Not on file documented as of this encounter Plan of Treatment Not on filedocumented as of this encounter Procedures Procedure Name Priority Date/Time Associated Diagnosis Comme nts ANATOMICAL PATH Routine 10/10/2010 4:35 PM Result s for this LIQUID BASED CDT procedure are i n the results section. PAP SMEAR Routine 10/10/2010 4:35 PM Papanicolaou smear of Results for this DIAGNOSTIC CDT cervix with atypical procedu re are in squamous cells of the result s undetermined section. significance (ASC-US) documented in this encounter Results Pap Smear (10/10/2010 4:35 PM CDT) Specimen (Source) Anatomical Collection Method Collection Time Re ceived Time Location / / Volume Laterality 10/10/2010 4:35 PM CDT Narrative HP CONVERSION - 10/16/2010 8:23 AM CDT Final GYNECOLOGICAL CYTOLOGY REPORT Pathology #: [id number] ?Date Obtained: 10/10/2010 ? Date Received: 10/13/2010 INTERPRETATION/RESULTS: Negative for Intraepithelial Lesion or M alignancy Fungal organisms morphologically consist ent with Khushi species. SPECIMEN ADEQUACY: Satisfactory for Evaluation. ??No endoce rvical cells/transformation zone component present. Verified on 10/16/2010 ??by ANYI MERLOS MD (electronic signature) CLINICAL NOTES: ? LMP: 09/16/2010. LIQUID BASED PAP SMEAR SPECIMEN TYPE: ?CERVICAL WITH REFLEX TO HPV IF ASCUS PLEASE NOTE: The pap smear is a screening test design ed to aid in the detection of cervical cancer and its pre cursor lesions. It is not a diagnostic procedure and neto uld not be used as the sole means of detecting cervical cancer. Both false-positive and false-negative report s may occur. ? End of Report Leyt Jones DO LAB_1 Performing Organization Address City/State/ZIP Code Phon e Number HP CONVERSION Pap Smear Diagnostic (10/10/2010 4:35 PM CDT) [facility] Method Time Signature PAP Diagnostic Collected HP CONVERSION Specimen Anatomical Collection Method Collection Time Receive d Time (Source) Location / / Volume Laterality 10/10/2010 4:35 PM 1 9:31 CDT AM CDT Lety Jones DO LAB_1 Performing Organization Address City/[facility] Phon e Number HP CONVERSION documented in this encounter Visit Diagnoses Diagnosis Papanicolaou smear of cervix with atypic al squamous cells of undetermined significance (ASC-US) - Primary documented in this encounter Care Teams Jordan Man Relationship Specialty Start Date End Date Kaelyn Lr PA-C PCP - General 05/18/10 06/05/[address] [facility] [address] [place] [address] documented as of this encounter
--- OUTSIDE RECORDS SUMMARY | 2021-11-01 11:31 | XMS_ITS | Encounter Summary ---
:1990 Author Organization [facility] Address [address] [place] [address] Care Team Providers Name Role Phone Adeline Kaelyn Plata PA-C Primary Care Provider Reason for Visit Reason Comments Refill Encounter Details Date Type Department Care Team Description 10/13/2011 Refill Lizet Simpson, DO Refill Obstetrics/Gynecolog y [address] [facility] [address] [place] [address] [place] [address] [phone] Social History Tobacco Use Types Packs/Day Years Used Date Smoking Tobacco: Never Assessed Sex Assigned at Date Recorded Not on file documented as of this encounter Nursing Notes Mehnaz Gomez - 10/13/2011 9:01 AM CDT Prescription Refills Approved Prescriptions Disp Refills ??? KELNOR , 28, 1-35 mg-mcg per tablet 28 tablet 0 Sig: TAKE ONE TABLET BY MOUTH ONE TIME DAILY Authorizing Provider: LIZET JEAN-BAPTISTE Ordering User: MEHNAZ GOMEZ Last well 09/25, and has appt scheduled. documented in this encounter Plan of Treatment Not on filedocumented as of this encounter Visit Diagnoses Not on filedocumented in this encounter Care Teams Beauty Sales Consultant Relationship Specialty Start Date End Date Kaelyn Lr PA-C PCP - General 05/18/10 06/05/13 [address] [facility] [address] [place] [address] documented as of this encounter
--- OUTSIDE RECORDS SUMMARY | 2021-11-01 11:31 | XMS_ITS | Encounter Summary ---
:1990 Author Organization [facility] Address [address] [place] [address] Care Team Providers Name Role Phone Kaelyn Lr PA-C Primary Care Provider Encounter Details Date Type Department Care Team Description 02/21/2010 Office Visit [facility] Kaelyn Garay PA-C [address] [address] [place] [address] [address] [place], [place] [address] Social History Tobacco Use Types Packs/Day Years Used Date Smoking Tobacco: Never Assessed Sex Assigned at Date Recorded Not on file documented as of this encounter Last Filed Vital Signs Vital Sign Reading Time Taken Comments Blood Pressure - - Pulse 68 02/21/2010 9:05 AM CLIENT SALES AND SERVICE OFFICER Temperature 36.1 ??C (97 ??F) 02/21/2010 9:05 AM CLIENT SALES AND SERVICE OFFICER C: 36.1 C Respiratory Rate - - Oxygen Saturation - - Inhaled Oxygen Concentration - - Weight 87.5 kg (192 lb 15.9 oz) 02/21/2010 9:05 AM CLIENT SALES AND SERVICE OFFICER C: 87.5kg Height - - Body Mass Index 30.68 09/27/2009 8:45 AM CDT documented in this encounter Progress Notes Kaelyn Lr - 02/21/2010 12:01 AM CST NAME: DESTINI TORREZ MR#: [id number] ACCT: [id number] VISIT: [id number] DICTATING CLINICIAN: Kaelyn Lr PA-C CONFIRM #: [id number] LOC: 502 CLINIC PROGRESS NOTE DATE OF VISIT: 02/21/2010 : 1990 HISTORY OF PRESENT ILLNESS: The patient is a 19-year-old female who presents to clinic today with her mom to discuss concerns over fatigue and a possible sinus infection. The patient states she was seen at [facility] on 02/09/2010 and was diagnosed with a sinus infection. She was treated with amoxicillin which she finished yesterday. She reports no significant improvement in her symptoms. She is still having difficulties with daily facial pain. The right side of the face is worse than the left, primarily in the maxillary area. She is also having thick nasal discharge, an a.m. sore throat and significant fatigue. She has not had any fevers or chills. No difficulties with cough. No shortness of breath or wheezing. Fatigue actually started approximately a week before the sinus symptoms did. Mom is concerned because there is a strong family history of hypothyroidism, and she would like Destini's thyroid function checked. REVIEW OF SYSTEMS: Patient denies any chronic difficulties with diarrhea or constipation. No recent changes in her hair or skin. No troubles with insomnia. MEDICATIONS: Zovia. ALLERGIES: Reviewed and updated in patient health profile. OBJECTIVE: VITALS: Weight 193. Temperature 97.0. Pulse 68. GENERAL: Alert female in no acute distress. HEENT: Head normocephalic, atraumatic. Pupils equal, round and reactive to light and accommodation. Sinuses tender to palpation in the right maxillary and frontal regions. Tympanic membranes normal to inspection. Nasal mucosa red, rough and bumpy. Thick rhinorrhea present in the right naris. Oropharynx pink and moist. Posterior pharynx reveals 1+ symmetric tonsils, non-erythematous, without exudate. NECK: Supple, without lymphadenopathy or thyromegaly. LUNGS: Clear to auscultation bilaterally. ASSESSMENT: 1. Fatigue. 2. Acute sinusitis. PLAN: Augmentin x14 days for treatment of ongoing sinusitis. We discussed symptomatic cares, including use of an [id number] decongestant and/or analgesics. Also discussed the importance of nasal saline rinses in helping to resolve the infection. We will check a TSH today, and I will notify patient with results. MJL:MEDQ C: CONFIRM #: [id number] NT SALES AND SERVICE OFFICER documented in this encounter Plan of Treatment Not on filedocumented as of this encounter Visit Diagnoses Not on filedocumented in this encounter Care Teams Cloth Doubling Machine Operator Relationship Specialty Start Date End Date Kaelyn Lr, PAAngel LuisC PCP - General 05/18/10 06/05/13 [address] [facility] [address] [place] [address] documented as of this encounter
--- OUTSIDE RECORDS SUMMARY | 2021-11-01 11:31 | XMS_ITS | Encounter Summary ---
:1990 Author Organization [facility] Address [address] [place] [address] Care Team Providers Name Role Phone Kaelyn Lr PA-C Primary Care Provider Encounter Details Date Type Department Care Team Description 10/10/2010 Notes/Orders Lety Simpson, Screening e xamination Obstetrics/Gynecolog y [place] for other [address] arthropod-borne viral [place], [place] [id number] [place] [address] diseases (Primary Dx) [phone] Social History Tobacco Use Types Packs/Day Years Used Date Smoking Tobacco: Never Assessed Sex Assigned at Date Recorded Not on file documented as of this encounter Plan of Treatment Not on filedocumented as of this encounter Visit Diagnoses Diagnosis Screening examination for other arthropo d-borne viral diseases - Primary documented in this encounter Care Teams Cutter Operator Tile Relationship Specialty Start Date End Date Kaelyn Lr PA-C PCP - General 05/18/10 06/05/13 [address] [facility] [address] [place] [address] documented as of this encounter
--- OUTSIDE RECORDS SUMMARY | 2021-11-01 11:31 | XMS_ITS | Encounter Summary ---
:1990 Author Organization [employer] Address [address] [place] [address] Care Team Providers Name Role Phone Adeline Kaelyn Plata PA-C Primary Care Provider Reason for Visit Reason Comments EXAM,ORTHODONTIC LABORATORY TECHNICIAN Encounter Details Date Type Department Care Team Description 10/10/2010 Office Visit Lety Simpson, Annual phys ical exam Obstetrics/Gynecolog y DO (Primary Dx) [address] [place] [phone] [place] [address] [phone] Social History Tobacco Use Types Packs/Day Years Used Date Smoking Tobacco: Never Assessed Sex Assigned at Date Recorded Not on file documented as of this encounter Last Filed Vital Signs Vital Sign Reading Time Taken Comments Blood Pressure 132/96 10/10/2010 1:42 PM CDT Pulse - - Temperature - - Respiratory Rate - - Oxygen Saturation - - Inhaled Oxygen Concentration - - Weight 87.8 kg (193 lb 8 oz) 10/10/2010 1:42 PM CDT Height 171.5 cm (5' 7.5) 10/10/2010 1:42 PM CDT Body Mass Index 29.86 10/10/2010 1:42 PM CDT documented in this encounter Progress Notes Lety Jones, DO - 10/12/2010 3:18 PM CDT 20 y/o G0 here for annual exam. No complaints. ROS: A comprehensive review of systems was negative. Vitals reviewed in EMR General- Well developed, well-nourished, White woman in no acute distress. Neck- Supple, no thyromegaly or lymphadenopathy Breasts- normal appearance, no masses or tenderness, Inspection negative, No nipple retraction or dimpling, No nipple discharge or bleeding, No axillary or supraclavicular adenopathy, Normal to palpation without dominant masses Lungs- Clear to auscultation bilaterally, normal respiratory effort, no crackles or wheezes Heart- Regular rate, no murmurs, rubs, or gallops. Abdomen- Soft, non-tender, normal bowel sounds. No bruits, organomegaly or masses. Pelvic- EGBUS within normal limits, normal vagina and vulva, normal cervix without lesions, polyps or tenderness, nulliparous os, uterus anteverted, uterus normal size, shape, consistency, no mass or tenderness, adnexa normal in size without mass or tenderness, pap smear done today, DNA probe for GC/chlamydia obtained Anus-normal Extremities- normal range of motion, no calf tenderness. No edema. Lymph- no cervical, axillary, or inguinal adenopathy. Skin- No significant lesions. 1) Preventative exam Plan- 1) Pap, pelvic, GC probe and breast examination performed today. 2) Contraception- pt is happy with OCP she is currently taking and a refill was sent to the pt's pharmacy. 3) RTC in one year. documented in this encounter Plan of Treatment Not on filedocumented as of this encounter Visit Diagnoses Diagnosis Annual physical exam - Primary Routine general medical examination at a health care facility documented in this encounter Care Teams Shuttle Bus Driver Relationship Specialty Start Date End Date Kaelyn Lr PA-C PCP - General 05/18/10 06/05/13 [address] [facility] [address] [place] [address] documented as of this encounter
--- OUTSIDE RECORDS SUMMARY | 2021-11-01 11:31 | XMS_ITS | Encounter Summary ---
:1990 Author Organization [employer] Address [address] [place] [address] Care Team Providers Name Role Phone Adeline Kaelyn Plata PA-C Primary Care Provider Reason for Visit Reason Comments Sinusitis Pharyngitis Encounter Details Date Type Department Care Team Description 01/17/2013 Office Visit [facility] Leah Styles Acut e pharyngitis (Primary Dx); Medicine Viral illness [address] [address] [place] [address] [place], [place] [phone] (Wo rk) Social History Tobacco Use Types Packs/Day Years Used Date Smoking Tobacco: Never Assessed Sex Assigned at Date Recorded Not on file documented as of this encounter Last Filed Vital Signs Vital Sign Reading Time Taken Comments Blood Pressure - - Pulse - - Temperature 36.1 ??C (97 ??F) 01/17/2013 2:49 PM PIECE WORK CHECKER Respiratory Rate 18 01/17/2013 2:49 PM PIECE WORK CHECKER Oxygen Saturation - - Inhaled Oxygen Concentration - - Weight 97.1 kg (214 lb) 01/17/2013 2:49 PM PIECE WORK CHECKER Height - - Body Mass Index 33.52 11/10/2012 9:36 AM CDT documented in this encounter Progress Notes Leah Styles MD - 01/18/2013 6:45 AM CST Progress Notes signed by Leah Styles MD at 01/22/131830 Author: Leah Styles MD Service: (none) Author Type: Physician Filed: 01/22/131830 Note Time: 01/18/13923 Status: Signed Outgoing Inspector: Leah Styles MD (Physician) NAME: DESTINI TORREZ MR#: [id number] CSN: [id number] AUTHENTICATING CLINICIAN: Leah Styles MD CONFIRM #: [id number] LOC: 502 CLINIC PROGRESS NOTE DATE OF VISIT: 01/17/2013 : 1990 CHIEF COMPLAINT: Sinus pain. HISTORY OF PRESENT ILLNESS: Destini is a 22-year-old lady who today came in with concerns of sinus pain for 2 days. Today she feels worse. She had to have a sore throat for 5 days, but better now. She does not have any strep exposure. She is able to eat and drink. She does have some runny nose. No fever. She does have some postnasal drainage. Otherwise, no ear pain. She does have a history of sinus infection every year. Occasional cough. Today came in for evaluation. MEDICATIONS: control pill. ALLERGIES: Reviewed. SOCIAL HISTORY: Patient does not smoke. OBJECTIVE: Weight: 214 pounds. Temperature: 97. Respirations: 18. GENERAL: The patient is comfortable, no acute distress. HEENT: Head is normocephalic, atraumatic. Tympanic membranes have been clear. Pharynx has been clear. No sinus tenderness. The patient does have some sinus tenderness present. CARDIOVASCULAR: S1 and S2, regular. LUNGS: Clear to auscultation bilaterally. ASSESSMENT: Viral illness. PLAN: I did the rapid strep, and it has been negative. Recommend to use nasal saline, Tylenol as needed. If the symptoms are not improving in the next few days, recommend to follow up and then we will consider antibiotic, which the patient agreed. SS:MEDQ C: CONFIRM #: [id number] E WORK CHECKER documented in this encounter Plan of Treatment Not on filedocumented as of this encounter Procedures Procedure Name Priority Date/Time Associated Diagnosis Comme nts BETA STREP FOLLOWUP Routine 01/17/2013 5:44 PM Re sults for this PIECE WORK CHECKER procedure are i n the results section. GROUP A STREP Routine 01/17/2013 3:00 PM Acute pharyngitis Res ults for this ANTIGEN SCREEN PIECE WORK CHECKER procedure are in the results section. documented in this encounter Results BETA STREP FOLLOWUP (01/17/2013 5:44 PM PIECE WORK CHECKER) [facility] gist Method Time Signature Source Throat HP CONVERSION Site HP CONVERSION Strep Screen No beta HP CONVERSION hemolytic Strep Group A isolated. Specimen (Source) Anatomical Collection Method Collection Time Re ceived Time Location / / Volume Laterality Throat: 01/17/2013 5:44 PM PIECE WORK CHECKER Leah Styles MD LAB_1 Performing Organization Address City/[facility] Phon e Number HP CONVERSION RAPID STREP GROUP A WAIVED (01/17/2013 3:00 PM PIECE WORK CHECKER) Analysis Performed At [facility] logist Time Signature Strep A Negative Negative HP CONVERSION Antigen Strep A Source Throat: HP CONVERSION Specimen Anatomical Collection Method Collection Time Receive d Time (Source) Location / / Volume Laterality 01/17/2013 3:00 PM 3 5:39 PIECE WORK CHECKER PM PIECE WORK CHECKER Narrative HP CONVERSION - 01/17/2013 5:42 PM PIECE WORK CHECKER Performed at [facility], [address] [place] [address] Leah Styles MD LAB_1 Performing Organization Address City/[facility]/ZIP Code Phon e Number HP CONVERSION documented in this encounter Visit Diagnoses Diagnosis Acute pharyngitis - Primary Viral illness Unspecified viral infection, in conditio ns classified elsewhere and of unspecified site documented in this encounter Care Teams Recreation Manager Relationship Specialty Start Date End Date Kaelyn Lr PA-C PCP - General 05/18/10 06/05/13 [address] [facility] [address] [place] [phone] documented as of this encounter
--- OUTSIDE RECORDS SUMMARY | 2021-11-01 11:31 | XMS_ITS | Encounter Summary ---
:1990 Author Organization [facility] Address [address] [place] [address] Care Team Providers Name Role Phone Kaelyn Lr PA-C Primary Care Provider Encounter Details Date Type Department Care Team Description 02/21/2010 PN Conversion Only [place] N Kaelyn Lr PA-C [address] [facility] [address] [place] [address] [address] [place], [place] [address] Social History Tobacco Use Types Packs/Day Years Used Date Smoking Tobacco: Never Assessed Sex Assigned at Date Recorded Not on file documented as of this encounter Plan of Treatment Not on filedocumented as of this encounter Procedures Procedure Name Priority Date/Time Associated Comments Diagnosis THYROID STIMULATING Routine 02/21/2010 9:40 AM Re sults for this HORMONE VACUUM KETTLE COOK procedure are i n the results section. documented in this encounter Results THYROID STIMULATING HORMONE (02/21/2010 9:40 AM VACUUM KETTLE COOK) P athologist Signature Thyroid 2.81 0.20 - HP CONVERSION Stimulating 4.50 mIU/L Hormone Specimen (Source) Anatomical Collection Method Collection Time Re ceived Time Location / / Volume Laterality 02/21/2010 9:40 AM VACUUM KETTLE COOK Kaelyn Lr PA-C LAB_1 Performing Organization Address City/State/ZIP Code Phon e Number HP CONVERSION documented in this encounter Visit Diagnoses Not on filedocumented in this encounter Care Teams Ultimate Hoops Trainer Relationship Specialty Start Date End Date Kaelyn Lr PA-C PCP - General 05/18/10 06/05/13 [address] [facility] [address] [place] [address] documented as of this encounter
--- OUTSIDE RECORDS SUMMARY | 2021-11-01 11:31 | XMS_ITS | Encounter Summary ---
:1990 Author Organization [facility] Address [address] [place] [address] Care Team Providers Name Role Phone Adeline Kaelyn Plata PA-C Primary Care Provider Encounter Details Date Type Department Care Team Description 10/10/2010 Lab Visit [facility] Screening examination for ot her arthropod-borne viral diseases; [address] [place] [address] Social History Tobacco Use Types Packs/Day Years Used Date Smoking Tobacco: Never Assessed Sex Assigned at Date Recorded Not on file documented as of this encounter Plan of Treatment Not on filedocumented as of this encounter Procedures Procedure Name Priority Date/Time Associated Diagnosis Comme nts SEXUALLY TRANSMITTED Routine 10/10/2010 5:07 PM Screening exam ination Results for this DISEASE PROBE CDT for other procedure are in arthropod-borne viral the re sults diseases section. Papanicolaou smear of cervix with atypical squamous cells of undetermined significance (ASC-US) documented in this encounter Results Sexually Transmitted Disease Probe (10/10/2010 5:07 PM CDT) Component Value Ref Test Analysis Performed At [facility] Range Method Time Signature Chlamydia Chlamydia HP CONVERSION Trach DNA trachomatis NEGATIVE by DNA amplification GC DNA Neisseria HP CONVERSION gonorrhea NEGATIVE by DNA amplification. Comment: ? ORDERED BY: LIZET JEAN-BAPTISTE SOURCE: Endocervical for molecular testi ng COLLECTED: ??10/10/10 17:07 ? PLATED: ? 10/10/10 17:07 Chlamydia trachomatis DNA Probe ?FINAL ? 10/13/10 11:17 Chlamydia trachomatis NEGATIVE by DNA a mplification The amplified DNA assay is cleared by [facility] for non-medicolegal diagnostic testing in [facility] adult population. Neisseria gonorrhea DNA Probe ?FINAL ? 10/13/10 11:18 Neisseria gonorrhea NEGATIVE by DNA amp lification. The amplified DNA assay is cleared by [facility] for non-medicolegal diagnostic testing in formerly [facility] adult population. Specimen (Source) Anatomical Collection Method Collection Time Re ceived Time Location / / Volume Laterality Endocervical for 10/10/2010 5:07 molecular testing: PM CDT Narrative HP CONVERSION - 10/13/2010 11:20 AM CDT Performed at [facility], [address] [place] [address] Lizet Jones DO LAB_1 Performing Organization Address City/State/ZIP Code Phon e Number HP CONVERSION documented in this encounter Visit Diagnoses Diagnosis Screening examination for other arthropo d-borne viral diseases Papanicolaou smear of cervix with atypic al squamous cells of undetermined significance (ASC-US) documented in this encounter Care Teams Organizational Consultant Relationship Specialty Start Date End Date Kaelyn Lr PA-C PCP - General 05/18/10 06/05/13 [address] [facility] [address] [place] [address] documented as of this encounter
--- OUTSIDE RECORDS SUMMARY | 2021-11-01 11:31 | XMS_ITS | Encounter Summary ---
:1990 Author Organization [employer] Address [address] [place] [address] Care Team Providers Name Role Phone Adeline Kaelyn Plata PA-C Primary Care Provider Encounter Details Date Type Department Care Team Description 02/25/2011 Lab Visit [facility] Chest pain [address] [place] [address] Social History Tobacco Use Types Packs/Day Years Used Date Smoking Tobacco: Never Assessed Sex Assigned at Date Recorded Not on file documented as of this encounter Plan of Treatment Not on filedocumented as of this encounter Procedures Procedure Name Priority Date/Time Associated Comments Diagnosis VENIPUNCTURE (JAIMEE) Routine 02/25/2011 11:17 Resu lts for this AM MOLD CARPENTER procedure are i n the results section. COMPLETE BLOOD Routine 02/25/2011 11:03 Chest pain Results f or this COUNT-W/DIFF AM MOLD CARPENTER procedure are i n the results section. DIFFERENTIAL Routine 02/25/2011 11:03 Results for this AM MOLD CARPENTER procedure are i n the results section. documented in this encounter Results VENIPUNCTURE (JAIMEE) (02/25/2011 11:17 AM MOLD CARPENTER) P athologist Signature Venipuncture Done HP CONVERSION Specimen Anatomical Collection Method Collection Time Receive d Time (Source) Location / / Volume Laterality 02/25/2011 11:17 02/25/2011 AM MOLD CARPENTER 11:17 AM MOLD CARPENTER Narrative HP CONVERSION - 02/25/2011 11:17 AM MOLD CARPENTER Performed at [facility] ([facility] [address] [place] [address] Leah Styles MD LAB_1 Performing Organization Address City/[facility]/ZIP Code Phon e Number HP CONVERSION Differential (02/25/2011 11:03 AM MOLD CARPENTER) athologist Signature Absolute 4.0 1.8 - 8.0 HP CONVERSION Neutrophils k/cmm Absolute 1.8 1.1 - 4.0 HP CONVERSION Lymphocytes k/cmm Absolute 0.5 0.2 - 0.8 HP CONVERSION Monocytes k/cmm Absolute 0.3 0.0 - 0.5 HP CONVERSION Eosinophils k/cmm Absolute 0.0 0.0 - 0.2 HP CONVERSION Basophils k/cmm Specimen Anatomical Collection Method Collection Time Receive d Time (Source) Location / / Volume Laterality 02/25/2011 11:03 02/25/2011 AM MOLD CARPENTER 11:03 AM MOLD CARPENTER Narrative HP CONVERSION - 02/25/2011 11:39 AM MOLD CARPENTER [place] [address] Leah Styles MD LAB_1 Performing Organization Address [facility] Phon e Number HP CONVERSION Hemogram/Plts/Diff (02/25/2011 11:03 AM MOLD CARPENTER) athologist Signature White Blood Cell 6.6 3.8 - 11.0 HP CONVERSIO N Count k/cmm Red Blood Cell 4.55 3.70 - HP CONVERSION Count 5.20 m/cmm Hemoglobin 13.8 11.8 - HP CONVERSION 15.5 g/dL Hematocrit 39.6 35.0 - HP CONVERSION 46.0 % Mean Corpuscular 87.0 80.0 - HP CONVERSION Volume 100.0 fL RDW 11.6 11.0 - HP CONVERSION 15.0 % Platelet Count 230 140 - 450 HP CONVERSION k/cmm Specimen Anatomical Collection Method Collection Time Receive d Time (Source) Location / / Volume Laterality 02/25/2011 11:03 02/25/2011 AM MOLD CARPENTER 11:03 AM MOLD CARPENTER Narrative HP CONVERSION - 02/25/2011 11:39 AM MOLD CARPENTER Performed at [facility] [address] [place] [address] Leah Styles MD LAB_1 Performing Organization Address City/State/ZIP Code Phon e Number HP CONVERSION documented in this encounter Visit Diagnoses Diagnosis Chest pain Chest pain, unspecified documented in this encounter Care Teams Travel Agent Relationship Specialty Start Date End Date Kaelyn Lr PA-C PCP - General 05/18/10 06/05/13 [address] [facility] [address] [place], [place] [phone] documented as of this encounter
--- OUTSIDE RECORDS SUMMARY | 2021-11-01 11:31 | XMS_ITS | Encounter Summary ---
:1990 Author Organization [employer] Address [address] [place] [address] Care Team Providers Name Role Phone Adeline Kaelyn Plata PA-C Primary Care Provider Encounter Details Date Type Department Care Team Description 10/15/2011 Lab Visit [facility] Screening for lipoid disorde rs; [address] [facility] [place] [address] Social History Tobacco Use Types Packs/Day Years Used Date Smoking Tobacco: Never Assessed Sex Assigned at Date Recorded Not on file documented as of this encounter Plan of Treatment Not on filedocumented as of this encounter Procedures Procedure Name Priority Date/Time Associated Diagnosis Comme nts CHOLESTEROL, TOTAL Routine 10/15/2011 8:42 AM Screening for li poid Results for this AND HDL CDT disorders procedure are i n the results section. ALT (SGPT) Routine 10/15/2011 8:42 AM Elevated LFTs Results for this CDT procedure are i n the results section. AST Routine 10/15/2011 8:42 AM Elevated LFTs Results for this CDT procedure are i n the results section. documented in this encounter Results ALT (SGPT) (10/15/2011 8:42 AM CDT) [facility] Method Time Signature Alanine 16 4 - 55 HP CONVERSION Aminotransferase U/L Specimen Anatomical Collection Method Collection Time Receive d Time (Source) Location / / Volume Laterality 10/15/2011 8:42 AM 2 8:42 CDT AM CDT Narrative HP CONVERSION - 10/15/2011 9:31 AM CDT Performed at [facility], [address] [place] [address] Cindy Henson LAB_1 Performing Organization Address [facility] Phon e Number HP CONVERSION AST (10/15/2011 8:42 AM CDT) Patholo gist Method Time Signature Aspartate 22 0 - 45 HP CONVERSION Aminotransferase U/L Specimen Anatomical Collection Method Collection Time Receive d Time (Source) Location / / Volume Laterality 10/15/2011 8:42 AM 2 8:42 CDT AM CDT Narrative HP CONVERSION - 10/15/2011 9:31 AM CDT Performed at [facility], [address] [place] [address] Cindy Henson LAB_1 Performing Organization Address [facility] Phon e Number HP CONVERSION Cholesterol, Total and HDL (10/15/2011 8:42 AM CDT) P athologist Signature Cholesterol 133 0 - 200 HP CONVERSION mg/dL HDL Cholesterol 46 >39 mg/dL HP CONVERSION Cholesterol/HDL 2.9 HP CONVERSION Ratio Screen Specimen Anatomical Collection Method Collection Time Receive d Time (Source) Location / / Volume Laterality 10/15/2011 8:42 AM 2 8:42 CDT AM CDT Narrative HP CONVERSION - 10/15/2011 9:31 AM CDT Performed at [facility], [address] [place] [address] Cindy Henson LAB_1 Performing Organization Address [facility] Phon e Number HP CONVERSION documented in this encounter Visit Diagnoses Diagnosis Screening for lipoid disorders Elevated LFTs Other abnormal blood chemistry documented in this encounter Care Teams Analytical Statistician Relationship Specialty Start Date End Date Kaelyn Lr PA-C PCP - General 05/18/10 06/05/[address] [facility] [address] [place] [address] documented as of this encounter
--- OUTSIDE RECORDS SUMMARY | 2021-11-01 11:31 | XMS_ITS | Encounter Summary ---
:[address] [facility] [facility] Address [address] [place] [address] Care Team Providers Name Role Phone Kaelyn Lr PA-C Primary Care Provider Reason for Visit Reason Comments Refill Encounter Details Date Type Department Care Team Description 10/26/2012 Refill [facility] Cindy Henson O Refill [address] [place] [address] Social History Tobacco Use Types Packs/Day Years Used Date Smoking Tobacco: Never Assessed Sex Assigned at Date Recorded Not on file documented as of this encounter Nursing Notes Darshana Gresham - 10/26/2012 9:23 AM CDT Pt. notified that she needs to schedule a Well exam to get add'l refills. documented in this encounter Plan of Treatment Not on filedocumented as of this encounter Visit Diagnoses Not on filedocumented in this encounter Care Teams Road Crew Member Relationship Specialty Start Date End Date Kaelyn Lr PA-C PCP - General 05/18/10 06/05/13 [address] [facility] [address] [place] [address] documented as of this encounter
--- OUTSIDE RECORDS SUMMARY | 2021-11-01 11:31 | XMS_ITS | Encounter Summary ---
:1990 Author [facility] Address [address] [place] [address] Care Team Providers Name Role Phone Kaelyn Lr PA-C Primary Care Provider Reason for Visit Reason Comments Refill Encounter Details Date Type Department Care Team Description 10/05/2010 Refill Lyn Abdul, Refill Obstetrics/Gynecolog y STUDENT, SLOT OPERATIONS DIRECTOR [address] [place] [address] [place] [phone] (Wo rk) Social History Tobacco Use Types Packs/Day Years Used Date Smoking Tobacco: Never Assessed Sex Assigned at Date Recorded Not on file documented as of this encounter Plan of Treatment Not on filedocumented as of this encounter Visit Diagnoses Not on filedocumented in this encounter Care Teams Reception Specialist Relationship Specialty Start Date End Date Kaelyn Lr PA-C PCP - General 05/18/10 06/05/13 [address] [facility] [address] [place] [address] documented as of this encounter
--- OUTSIDE RECORDS SUMMARY | 2021-11-01 11:31 | XMS_ITS | Encounter Summary ---
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 Encounter Details Date Type Department Care Team Description 11/10/2012 Office Visit Massimo Godinez g ynecological Obstetrics/Gynecolo MD Alejandro examination (Primary gy [address] [place]) [address] [place], [place] [address] [place] [address] Social History Tobacco Use Types Packs/Day Years Used Date Smoking Tobacco: Never Assessed Sex Assigned at Date Recorded Not on file documented as of this encounter Last Filed Vital Signs Vital Sign Reading Time Taken Comments Blood Pressure 124/80 11/10/2012 9:36 AM CDT Pulse 83 11/10/2012 9:36 AM CDT Temperature - - Respiratory Rate - - Oxygen Saturation - - Inhaled Oxygen Concentration - - Weight 96.2 kg (212 lb) 11/10/2012 9:36 AM CDT Height 170.2 cm (5' 7) 11/10/2012 9:36 AM CDT Body Mass Index 33.2 11/10/2012 9:36 AM CDT documented in this encounter Patient Instructions Patient InstructionsMelany See LPN - 11/10/2012 9:39 AM CDT Thank you for enrolling in [facility]. Please follow the instructions below to securely access your online medical record. [facility] allows you to send messages to your doctor, view your test results, renewyour prescriptions, schedule appointments, and more. How Do I Sign Up? 1. In your Internet browser, go to: [email or web address] 2. Click on the Enter Activation Code link under the New User? section. You will see the New Member Sign Up page. 3. Enter your [facility]BX Activation Code exactly as it appears below. You will not need to use this code after you???ve completed the sign-up process. If you do not sign up before the expiration date, youmust request a new code. [facility] Activation Code: [email or web address] Expires: 12/10/2012 9:39 AM 4. Enter the last four digits of your Social Security Number ([id number]) and Date of (mm/dd/yyyy) as indicated and click Next. You will be taken to the next sign-up page. 5. Create a amBX ID. This will be your amBX login ID and cannot be changed, so think of one that is secure and easy to remember. 6. Create a amBX password. You can change your password at any time. 7. Enter your Security Question and Answer. This can be used at a later time if you forget your password. Click Next. 8. Enter your e-mail address. You will receive e-mail notification when new information is availablein [facility]BX. 9. Click Sign In. You can now view your medical record. Additional Information If you have questions, you can call [phone] to talk to our [facility] staff. Remember, [facility] is NOT to be used for urgent needs. For medical emergencies, dial 911. documented in this encounter Progress Notes Massimo Stewart - 11/27/2012 5:35 PM CDT Quick Note: Reviewed. Normal. OK to send normal Pap letter. Julio Césarpastora Tomnikaeduardo Plata - 11/11/2012 1:14 PM CDT Quick Note: Letter sent Terry Massimo Plata - 11/10/2012 10:13 AM CDT Progress Notes signed by Massimo Stewart MD at 11/11/12 114 Author: Massimo Stewart MD Service: (none) Author Type: Physician Filed: 11/11/12 1146 Note Time: 11/10/121906 Status: Signed Collar Padder Blindstitch: Massimo Stewart MD (Physician) NAME: DESTINI TORREZ MR#: [id number] CSN: [id number] AUTHENTICATING CLINICIAN: Massimo Stewart MD CONFIRM #: [id number] LOC: 512 CLINIC PROGRESS NOTE DATE OF VISIT: 11/10/2012 : 1990 Destini Torrez is a 22-year-old partnered female, para 0, last menstrual period approximately October 22, who presents for annual gynecologic examination. She is presently without complaints. She is in a mutually monogamous stable relationship going on 4 years now. She is not concerned about STDs. She is using oral contraceptives, specifically Kelnor, a formulation that has been quite satisfactory to her for a while now. She wishes it to be refilled and this was done. SOCIAL HISTORY: Single sexual partner. Nonsmoker. Rare alcohol use. Denies illicit drug use. Last Pap 10/15/2011 within normal limits. The patient's gynecologic history otherwise negative. PAST SURGICAL HISTORY: Notable only for wisdom teeth extraction. FAMILY HISTORY: Noncontributory. Specifically the patient denies any known family history of breast, gynecologic or colon CA. PHYSICAL EXAMINATION: Well-developed, well-nourished female in no apparent distress. Height 67 inches, weight 212, blood pressure 124/80, pulse 83. NECK: Without thyromegaly or adenopathy. LUNGS: Clear to auscultation bilaterally. HEART: Regular rate and rhythm. Normal S1, S2. BREASTS: Without focal masses. No axillary or supraclavicular adenopathy, symmetric bilaterally. No discrete masses or tenderness. ABDOMEN: Obese, soft, nontender. No masses or organomegaly. No inguinal adenopathy. PELVIC: External genitalia without lesions. [place]olin, [place], urethral glands negative. Vagina negative throughout course. Cervix: Nulliparous, no lesions, no active bleeding. Pap smear obtained. GC chlamydia endocervical probe obtained. Bimanual examination: Uterus midline, mobile, smooth, nontender.No appreciable adnexal masses or tenderness. EXTREMITIES: Nontender without edema. ASSESSMENT: Normal annual gynecologic examination. PLAN: Pap, GC chlamydia endocervical probe given patient's age as a routine screen. Refill on Kelnor oral contraceptives provided. CJS:FIOR C: CONFIRM #: [id number] documented in this encounter Miscellaneous Notes Miscellaneous - 06/04/2016 10:56 PM CDTNotes Recorded by Massimo Stewart MD on 11/27/2012 at 5:35 PMReviewed. Normal. OK to send normal Pap letter.------ Notes Recorded by Massimo Stewart MD on 11/11/2012 at 1:14 PMLetter sent Miscellaneous - 03/27/2016 2:39 AM CSTNotes Recorded by Massimo Stewart MD on 11/27/2012 at 5:35 PMReviewed. Normal. OK to send normal Pap letter. 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 PAP SMEAR SCREENING Routine 11/10/2012 10:07 Routine gynecolog ical Results for this AM CDT examination procedure are i n the results section. SEXUALLY TRANSMITTED Routine 11/10/2012 10:06 Routine gynecolo gical Results for this DISEASE PROBE AM CDT examination procedure are in the results section. documented in this encounter Results Pap Smear (11/10/2012 10:07 AM CDT) Specimen (Source) Anatomical Collection Method Collection Time Re ceived Time Location / / Volume Laterality 11/10/2012 10:07 AM CDT Narrative HP CONVERSION - 11/23/2012 4:29 PM CDT FINAL GYNECOLOGICAL CYTOLOGY REPORT Pathology #: [id number] ?Date Obtained: 11/10/2012 ? Date Received: 11/11/2012 INTERPRETATION/RESULTS: Negative for Intraepithelial Lesion or M alignancy Fungal organisms morphologically consist ent with Khushi species. SPECIMEN ADEQUACY: Satisfactory for Evaluation. ??Endocervi elmo cells/transformation zone component present. Verified on 11/23/2012 ??by Beverly LOPEZ(ASCP) (electronic signature) CLINICAL NOTES: ?LMP: Not Stated LIQUID BASED PAP SMEAR SPECIMEN TYPE: ?CERVICAL [...] s may occur. ? End of Report Transcriptions 03/27/2016 2:39 AM CSTNotes Recorded by Massimo Stewart MD on 11/27/2012 at 5:35 PMReviewed. Normal. OK to send normal Pap letter. Massimo Stewart MD LAB_1 Performing Organization Address City/State/ZIP Code Phon e Number HP CONVERSION Pap Smear Screening (11/10/2012 10:07 AM CDT) P athologist Signature PAP Routine Collected HP CONVERSION Specimen Anatomical Collection Method Collection Time Receive d Time (Source) Location / / Volume Laterality 11/10/2012 10:07 11/11/2012 5:17 AM CDT AM CDT Massimo Stewart MD LAB_1 Performing Organization Address City/State/ZIP Code Phon e Number HP CONVERSION SEXUALLY TRANSMITTED DISEASE PROBE (11/10/2012 10:06 AM CDT) Component Value Ref Test Analysis Performed At [facility] gist Range Method Time Signature Source Endocervical for HP CONVERSION molecular testing Site HP CONVERSION Chlamydia Chlamydia HP CONVERSION Trach DNA trachomatis NEGATIVE by DNA amplification GC DNA Neisseria HP CONVERSION gonorrhea NEGATIVE by DNA amplification. Specimen (Source) Anatomical Collection Method Collection Time Re ceived Time Location / / Volume Laterality Endocervical for 11/10/2012 10:06 molecular testing: AM CDT Transcriptions 06/04/2016 10:56 PM CDTNotes Recorded by Massimo Stewart MD on 11/27/2012 at 5:35 PMReviewed. Normal. OK to send normal Pap letter.------Notes Recorded by Massimo Stewart MD on 11/11/2012 at 1:14 PMLetter sent Massimo Stewart MD LAB_1 Performing Organization Address City/[facility]/ZIP [facility] Phon e Number HP CONVERSION documented in this encounter Visit Diagnoses Diagnosis Routine gynecological examination - Prim lisa documented in this encounter Care Teams Surgical Territory Manager Relationship Specialty Start Date End Date Kaelyn Lr PA-C PCP - General 05/18/10 06/05/13 [id number] [facility] [address] [place] [address] documented as of this encounter
--- OUTSIDE RECORDS SUMMARY | 2021-11-01 11:31 | XMS_ITS | Encounter Summary ---
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 Encounter Details Date Type Department Care Team Description 10/15/2011 Office Visit Cindy Conley Routine ge neral medical examination at a health care facility (Primary Dx); Obstetrics/Gynecolog C O Elevate d LFTs; y Vaccin for DTP; [address] [employer] Surveillance of previously p rescribed contraceptive pill; [place] [address] Screening for malignant neop lasm of the cervix; [phone] Screening for l ipoid disorders Social History Tobacco Use Types Packs/Day Years Used Date Smoking Tobacco: Never Assessed Sex Assigned at Date Recorded Not on file documented as of this encounter Last Filed Vital Signs Vital Sign Reading Time Taken Comments Blood Pressure 120/72 10/15/2011 8:02 AM CDT Pulse - - Temperature - - Respiratory Rate - - Oxygen Saturation - - Inhaled Oxygen Concentration - - Weight 92.1 kg (203 lb) 10/15/2011 8:02 AM CDT Height 170.2 cm (5' 7) 10/15/2011 8:02 AM CDT Body Mass Index 31.79 10/15/2011 8:02 AM CDT documented in this encounter Patient Instructions Patient InstructionsEstela Iglesias LPN - 10/15/2011 8:05 AM CDT Thank you for enrolling in [employer] [facility]. Please follow the instructions below to securely access your online medical record. [employer] [facility] allows you to send messages to your doctor, view your test results, renewyour prescriptions, schedule appointments, and more. How Do I Sign Up? 1. In your Internet browser, go to: [email or web address] 2. Click on the Sign Up Now link in the Sign In box. You will see the New Member Sign Up page. 3. Enter your [employer] [facility] Access Code exactly as it appears below. You will not need to use this code after you???ve completed the sign-up process. If you do not sign up before the expiration date, you must request a new code. [employer] [facility] Access Code: [email or web address] Expires: 11/14/11 08:05 AM 4. Enter your Social Security Number ([id number]) and Date of (mm/dd/yyyy) as indicated and click Submit. You will be taken to the next sign- up page. 5. Create a [employer] ID. This will be your [employer] [facility] login ID and cannot be changed, so think of one that is secure and easy to remember. 6. Create a [employer] password. You can change your password at any time. 7. Enter your Password Reset Question and Answer. This can be used at a later time if you forget your password. 8. Enter your e-mail address. You will receive e-mail notification when new information is availablein [facility] [employer] [facility]. 9. Click Sign Up. You can now view your medical record. Additional Information If you have questions, you can call [phone] to talk to our [facility] staff. Remember, [employer] [facility] is NOT to be used for urgent needs. For medical emergencies, dial 911. documented in this encounter Progress Notes Cindy Henson - 10/15/2011 8:36 AM CDT Preventive Exam & Pelvic SUBJECTIVE: Destini Cano is a 21 y.o. female who presents for a routine preventive physical exam. She is feeling well with no concerns. She would like refills on her Kelnor OCPs. She reports that she was seen in ED in 06/2011 for N/V after drinking. LFTs were elevated. She would like these rechecked today. Reports that she is drinking much less; had four drinks in the last 2 weeks. Past Medical/Surgical History: Past Medical History Diagnosis Date ??? Anemia ??? Immunization, other disease ??? Varicella ??? Abnormal Pap smear 09/2009 ASCUC+HRHPV ??? Urinary tract infection Past Surgical History Procedure Date ??? Nasal/sinus endoscopy LW Problem: Endonasal Sinus Surgery S/p LW Onset: 2004 ??? [place] tooth extraction ??? Sinus surgery ??? Nasal polyp surgery ??? Pre-malignant / benign skin lesion excision Mole removal Family Life Counselor History: LMP: Patient's last menstrual period was 10/09/2011. /Para: History of abnormal pap smears: 09/2009, ASCUS + HRHPV. No colpo (Pt was 18 y/o). Normal pap 09/2010. History of STDs: yes - HPV Adverse Drug Reactions: Pt's Adverse Drug Reactions were reviewed and updated today. Current Medications: Reviewed and updated today. Family History: (First degree family members) Family History Problem Relation Age of Onset ??? Thyroid Disease Mother ??? High Cholesterol Mother ??? Thyroid Disease Maternal Grandmother ??? Diabetes Maternal Grandfather ??? High Cholesterol Maternal Grandfather ??? Thyroid Disease Maternal Grandfather ??? Thyroid Disease Paternal Grandmother Social History: Employment Status: finishing degree in [place] Marital Status: Partnered x 3 years Sexual History: monogamous Habits: Tobacco: History Smoking status ??? Never Smoker Smokeless tobacco ??? Not on file Alcohol: History Alcohol Use ??? 1.2 oz/week ??? 2 Glasses of wine per week Alcoholic Drinks/day: few month Preventive Health Assessment: Lipid screen: never had Tetanus immunization: 2001 Review of Systems: With the exception of any items noted above, the remainder of the complete ROS is negative. OBJECTIVE: Vital Signs: BP 120/72 Ht 5' 7 (1.702 m) Wt 203 lb (92.08 kg) BMI 31.79 kg/m2 LMP 10/09/2011 General: Patient alert, in NAD. HEENT: Pupils equal, sclera clear. Oropharynx normal. Neck: Supple, without thyromegaly or mass. CV: Regular rate and rhythm Resp: Clear to auscultation Abdomen: soft, non-tender, without masses or organomegaly Breasts: normal appearance, no masses or tenderness Lymphatic: No neck, supraclavicular, axillary or groin lymphadenopathy. Lower Extremities: FROM, normal gait without edema, lesions, or deformity. Pelvic: Normal external genitalia without lesions. Normal appearing vaginal epithelium. Small amountbrown discharge. Normal appearing cervix without discharge or lesions. Uterus is normal size, shape,consistency and nontender. Normal adnexa in size, nontender and no masses. Skin: No lesions. Neuro: Motor & sensory function all intact. Psychiatric: Alert & oriented with normal affect and insight. Patient does not appear depressed or anxious. ASSESSMENT: Routine preventive exam. Surveillance of OCPs H/o elevated LFTs PLAN: Pap smear. If normal, repeat Q 2 years per ASCCP guidelines Declines gc/chlamydia testing Cholesterol and LFTs today. Not fasting, so will not check glucose. Refills on OCPs Tdap administered after immunization counseling. Follow-up in 1 year, sooner PRN any concerns. Cindy Henson MD documented in this encounter Plan of Treatment Not on filedocumented as of this encounter Procedures Procedure Name Priority Date/Time Associated Comments Diagnosis ANATOMICAL PATH Routine 10/15/2011 10:49 AM Resul ts for this LIQUID BASED CDT procedure are i n the results section. PAP SMEAR SCREENING Routine 10/15/2011 10:49 AM Screening for Results for this CDT malignant neoplasm procedure are in of the cervix the results section. documented in this encounter Results Pap Smear (10/15/2011 10:49 AM CDT) Specimen (Source) Anatomical Collection Method Collection Time Re ceived Time Location / / Volume Laterality 10/15/2011 10:49 AM CDT Narrative HP CONVERSION - 10/26/2011 11:11 AM CDT Final GYNECOLOGICAL CYTOLOGY REPORT Pathology #: [id number] ?Date Obtained: 10/15/2011 ? Date Received: 10/16/2011 INTERPRETATION/RESULTS: Negative for Intraepithelial Lesion or M alignancy SPECIMEN ADEQUACY: Satisfactory for Evaluation. ??No endoce rvical cells/transformation zone component present. Verified on 10/26/2011 ??by Gay PADGETT MD (electronic signature) CLINICAL NOTES: ? LMP: Not Stated. LIQUID BASED PAP SMEAR SPECIMEN TYPE: ?CERVICAL [...] s may occur. ? End of Report Cindy Henson LAB_1 Performing Organization Address City/[facility]/ZIP [facility] Phon e Number HP CONVERSION Pap Smear Screening (10/15/2011 10:49 AM CDT) P athologist Signature PAP Routine Collected HP CONVERSION Specimen Anatomical Collection Method Collection Time Receive d Time (Source) Location / / Volume Laterality 10/15/2011 10:49 10/16/2011 6:10 AM CDT AM CDT Cindy Henson LAB_1 Performing Organization Address City/[facility] Phon e Number HP CONVERSION documented in this encounter Visit Diagnoses Diagnosis Routine general medical examination at a health care facility - Primary Elevated LFTs Other abnormal blood chemistry Need for prophylactic vaccination with c ombined qhbljzhocg-knypptf-jeiaugmln (DTP) vaccine Surveillance of previously prescribed co ntraceptive pill Screening for malignant neoplasm of the cervix Screening for lipoid disorders documented in this encounter Care Teams Special Delivery Mail Carrier Relationship Specialty Start Date End Date Kaelyn Lr PA-C PCP - General 05/18/10 06/05/13 [address] [facility] [address] [place] [address] documented as of this encounter
--- OUTSIDE RECORDS SUMMARY | 2021-11-01 11:31 | XMS_ITS | Encounter Summary ---
:1990 [facility] Address [address] [place] [address] Care Team Providers Name Role Phone Kaelyn Lr PA-C Primary Care Provider Reason for Visit Reason Comments Refill Encounter Details Date Type Department Care Team Description 10/13/2010 Refill [place] Obstetric s/Gynecology Leann Krishnamurthy Refill [address] [place] [address] Social History Tobacco Use Types Packs/Day Years Used Date Smoking Tobacco: Never Assessed Sex Assigned at Date Recorded Not on file documented as of this encounter Plan of Treatment Not on filedocumented as of this encounter Visit Diagnoses Not on filedocumented in this encounter Care Teams Paper Machine Supervisor Relationship Specialty Start Date End Date Kaleyn Lr PA-C PCP - General 05/18/10 06/05/13 [address] [facility] [address] [place] [address] documented as of this encounter
--- OUTSIDE RECORDS SUMMARY | 2021-11-01 11:31 | XMS_ITS | Encounter Summary ---
:1990 Author [facility] Address [address] [place] [address] Care Team Providers Name Role Phone Kaelyn Lr PA-C Primary Care Provider Reason for Visit Reason Comments Refill Encounter Details Date Type Department Care Team Description 01/07/2011 Refill Echo Lety Jones, DO Refill Obstetrics/Gynecolog y [address] [facility] [address] [place] [address] [place] [address] [phone] Social History Tobacco Use Types Packs/Day Years Used Date Smoking Tobacco: Never Assessed Sex Assigned at Date Recorded Not on file documented as of this encounter Nursing Notes Zuleyma Ray - 01/09/2011 9:27 AM CST No refills needs. Original Rx 10/12 with 4 refills documented in this encounter Plan of Treatment Not on filedocumented as of this encounter Visit Diagnoses Not on filedocumented in this encounter Care Teams Clinic Md Associate Relationship Specialty Start Date End Date Kaelyn Lr PA-C PCP - General 05/18/10 06/05/[address] [facility] [address] [place] [address] documented as of this encounter
--- OUTSIDE RECORDS SUMMARY | 2021-11-01 11:31 | XMS_ITS | Encounter Summary ---
:1990 Author Organization [employer] Address [address] [place] [address] Care Team Providers Name Role Phone Needs Pcp, Assignment Primary Care Provider Reason for Visit Reason Comments Toe Pain Encounter Details Date Type Department Care Team Description 06/06/2013 Office Visit [facility] Ana Mehta Ony chia and Medicine MORIS, AVIVA paronychia of toe [address] [address] [address] (Primary Dx) [place] [address] [place], [place] [phone] (Wo rk) Social History Tobacco Use Types Packs/Day Years Used Date Smoking Tobacco: Never Assessed Sex Assigned at Date Recorded Not on file documented as of this encounter Last Filed Vital Signs Vital Sign Reading Time Taken Comments Blood Pressure 134/84 06/06/2013 2:33 PM CDT Pulse 64 06/06/2013 2:33 PM CDT Temperature 37 ??C (98.6 ??F) 06/06/2013 2:33 PM CDT Respiratory Rate - - Oxygen Saturation - - Inhaled Oxygen Concentration - - Weight 92.1 kg (203 lb) 06/06/2013 2:33 PM CDT Height - - Body Mass Index 31.79 11/10/2012 9:36 AM CDT documented in this encounter Patient Instructions Patient InstructionsAna Mehta, MORIS, AVIVA - 06/06/2013 2:56 PM CDT Images from the original note were not included. Paronychia: After Your Visit Your Care Instructions Paronychia (say rqdk-mb-ZE-luis alberto-syed) is an infection of the skin around a fingernail or toenail. It happens when germs enter through a break in the skin. The doctor may have made a small cut in the infected area to drain the pus. Most cases of paronychia improve in a few days. But watch your symptoms and follow your doctor's advice. Though rare, a mild case can turn into something more serious and infect your entire finger or toe. Also, it is possible for an infection to return. Follow-up care is a garsia part of your treatment and safety. Be sure to make and go to all appointments, and call your doctor if you are having problems. It's also a good idea to know your test results and keep a list of the medicines you take. How can you care for yourself at home? ?? If your doctor prescribed antibiotics, take them as directed. Do not stop taking them just because you feel better. You need to take the full course of antibiotics. ?? Take an caaq-rgr-polbxay pain medicine, such as acetaminophen (Tylenol), ibuprofen (Advil, Motrin), or naproxen (Aleve). Read and follow all instructions on the label. ?? Do not take two or more pain medicines at the same time unless the doctor told you to. Many pain medicines have acetaminophen, which is Tylenol. Too much acetaminophen (Tylenol) can be harmful. ?? Prop up the toe or finger so that it is higher than the level of your heart. This will help with pain and swelling. ?? Apply heat. Put a warm water bottle, heating pad set on low, or warm cloth on your finger or toe.Do not go to sleep with a heating pad on your skin. ?? Soak the area in warm water twice a day for 15 minutes each time. After soaking, dry the area well and apply a thin layer of antibiotic ointment, such as bacitracin. Put on a new bandage. ?? Keep your bandage clean and dry. Replace a bandage at least 1 time a day or when it is wet or dirty. When should you call for help? Call your doctor now or seek immediate medical care if: ?? You have signs of new or worsening infection, such as: ?? Increased pain, swelling, warmth, or redness. ?? Red streaks leading from the infected skin. ?? Pus draining from the area. ?? A fever. Watch closely for changes in your health, and be sure to contact your doctor if: ?? You develop joint aches with your infection. ?? Your infection comes back. ?? You do not get better as expected. Where can you learn more? Go to www.[employer].net/patiented. Enter C435 in the search box to learn more about Paronychia: After Your Visit. Last Revised: September 20, 2012 ?? [id number] [employer]. Care instructions adapted under license by your healthcare professional. If you have questions about a medical condition or this instruction, always ask your healthcare professional. [employer] disclaims any warranty or liability for your use of this information. documented in this encounter Progress Notes Ana Mehta APRN, CNP - 06/06/2013 5:09 PM CDT Destini Torrez [id number] 1990 SUBJECTIVE: DESTINI TORREZ is a 22 y.o. female who presents to the clinic for evaluation of acute right fourth toe swelling and pain. The patient states that the right fourth toe became somewhat itchy yesterday and by this morning, she noticed edema and mild pain. The pain has worsened as the day has gone on. She has also noticed a small fluid-filled blister form on the medial aspect of the toe. She has also noticed some redness advancing on the dorsum of the foot. It is painful to walk. She has not tried any treatment thus far. She has never had anything like this happen previously. She cannot think of any injury that she sustained or recent breaks in her skin. She was barefoot briefly over the weekend, butthis was only for a few minutes in her back yard. She denies redness, edema, or pain in other joints. She denies fever, chills, or general malaise. PAST MEDICAL AND SURGICAL HISTORY REVIEWED IN [facility] FAMILY AND SOCIAL HISTORY REVIEWED IN [facility] MEDICATIONS: Outpatient Prescriptions Prior to Visit Medication Sig ??? ethynodiol-ethinyl estradiol (KELNOR , 28,) 1-35 mg-mcg per tablet Take 1 tablet by mouth daily (every 24 hours). Follow package directions No facility-administered medications prior to visit. ALLERGIES: Promethazine hcl ROS as described above. Other pertinent positives include: As above. OBJECTIVE BP 134/84 Pulse 64 Temp(Src) 98.6 ??F (37 ??C) (Oral) Wt 203 lb (92.08 kg) BMI 31.79 kg/m2 LMP 05/22/2013 GENERAL: This is a well-developed, well-nourished female in no acute distress. EXTREMITIES: Strong and equal peripheral pulses. No ankle edema. No inguinal lymphadenopathy. SKIN: The right fourth toe is edematous and erythematous on dorsal aspect. Maximal erythema is notesover DIPJ, which is area of maximal tenderness. Erythema extends to mid 4th-5th metatarsals. This area is mildly tender. No erythema proximal to ankle joint or streaking up leg. There is a fluid filled vesicle on the medial aspect of the 4th metarsal, it contains clear fluid. I suspect this is a friction injury and not source of infection. Toenails are not ingrowing and no evidence of injury to nail bed. No foreign bodies identified. PSYCH: Well-oriented. Appropriate mood and affect. NEURO: Speech and gait are normal. ASSESSMENT/PLAN: Onychia and paronychia of toe - Initiate cephALEXin (KEFLEX) 500 mg capsule; Take 1 capsule by mouth 4 times daily for 7 days. - In clinic: cefTRIAXone (ROCEPHIN) injection 1,000 mg; Inject 1,000 mg into the muscle once. - Advised warm soaks x15 minutes t.i.d. - Advised elevating the foot above heart level. - Advised ibuprofen or tylenol prn pain. - Advised emergent evaluation is redness advances, fever develops, or she notices streaking. [facility]A [facility] NB: A voice recognition dictation system was used for this note. Please excuse any typographical errors. documented in this encounter Plan of Treatment Not on filedocumented as of this encounter Visit Diagnoses Diagnosis Onychia and paronychia of toe - Primary documented in this encounter Care Teams Infrastructure Project Manager Relationship Specialty Start Date End Date Needs Pcp, Assignment PCP - General 06/06/13 06/06/13 [place] [address] documented as of this encounter
--- OUTSIDE RECORDS SUMMARY | 2021-11-01 11:31 | XMS_ITS | Encounter Summary ---
:1990 Author Organization [facility] Address [address] [place] [address] Care Team Providers Name Role Phone Kaelyn Lr PA-C Primary Care Provider Reason for Visit Reason Comments Refill Encounter Details Date Type Department Care Team Description 11/08/2012 Refill [place] Spr[place] MD Refill Obstetrics/Gynecolog y [address] [address] [place] [address] [place] [address] [phone] Social History Tobacco Use Types Packs/Day Years Used Date Smoking Tobacco: Never Assessed Sex Assigned at Date Recorded Not on file documented as of this encounter Plan of Treatment Not on filedocumented as of this encounter Visit Diagnoses Not on filedocumented in this encounter Care Teams Ems Instructor Relationship Specialty Start Date End Date Kaelyn Lr PA-C PCP - General 05/18/10 06/05/[address] [facility] [address] [place] [address] documented as of this encounter
--- OUTSIDE RECORDS SUMMARY | 2021-11-01 11:31 | XMS_ITS | Encounter Summary ---
:1990 Author Organization [employer] Address [address] [place] [address] Care Team Providers Name Role Phone Adeline Kaelyn Plata PA-C Primary Care Provider Reason for Visit Reason Comments Chest Pain Encounter Details Date Type Department Care Team Description 02/26/2011 Procedure Visit [facility] Echocardi ogram Chest Pain [address] [place] [address] Social History Tobacco Use Types Packs/Day Years Used Date Smoking Tobacco: Never Assessed Sex Assigned at Date Recorded Not on file documented as of this encounter Progress Notes Kayla Villasenor - 02/26/2011 12:02 PM PERPETUAL INVENTORY CLERK Quick Note: Called and spoke with Destini. Told her the Stress Echocardiogram was negative. ETUAL INVENTORY CLERK Leah Styles MD - 02/26/2011 9:14 AM PERPETUAL INVENTORY CLERK Quick Note: Please notify that stress echo is normal.Thanks Ana Ontiveros RN - 02/26/2011 8:41 AM CST Pt biked 10:28 minutes. Maximum heart rate = 173, 87% of maximum heart rate. Maximum blood pressure = 196/96. Pt complained of chest tightness rated at 3/10 during exercise. Tightness resolved completely on its own post exercise. Results pending. documented in this encounter Miscellaneous Notes Miscellaneous - 03/27/2016 9:14 PM CSTNotes Recorded by Kayla Villasenor LPN on 02/26/2011 at 12:02 PMCalled and spoke with Destini. Told her the Stress Echocardiogram was negative.------Notes Recorded by Leah Styles MD on 02/26/2011 at 9:14 AMPlease notify that stress echo is normal.Thanks ETUAL INVENTORY CLERK documented in this encounter Plan of Treatment Not on filedocumented as of this encounter Procedures Procedure Name Priority Date/Time Associated Comments Diagnosis STRESS ECHOCARDIOGRAM Routine 02/26/2011 7:53 AM Chest pain Results for this PERPETUAL INVENTORY CLERK procedure are i n the results section. documented in this encounter Results Stress Echocardiogram (02/26/2011 7:53 AM PERPETUAL INVENTORY CLERK) Specimen (Source) Anatomical Collection Method Collection Time Re ceived Time Location / / Volume Laterality 02/26/2011 7:53 AM PERPETUAL INVENTORY CLERK Narrative PN ECHO - 02/26/2011 9:09 AM PERPETUAL INVENTORY CLERK STRESS ECHOCARDIOGRAM. Date: 02/26/2011 Start: 07:53 AM Facilit y: Oswaldo CONCLUSIONS Risk stratification by stress echocardio graphy is identified as low risk based on normal stress echocardiogr am. REST: Chamber size, wall motion, and wall thic kness are normal. No significant valvular abnormalities are s een. The visually estimated LVEF is 65%. STRESS: All segments display appropriate hyperki nesis; ejection fraction increases appropriately. End systolic area did NOT increase. CONCLUSION: Normal bicycle stress echocardiogram wit h adequate heart rate and workload. No evidence for inducible ischemia. REST ECG Normal ST-T segments. Resting HR:82 bpmResting BP:134/92 mmHg Pre-Stress Physical Exam No medications which affect electrocard iographic interpretation. STRESS Stress Type: Bike Ergometer Peak HR: 173 bpm ?HR Response: Normal Peak BP: 196/96 mmHg ?BP Response: Normal Max Predicted HR: 199 bpm ? HR BP Product: 52987 % of Max Predicted HR: 87 ? Max Exercise: 6.7 METS Test Duration: 10.47 min Reason for Termination: Fatigue Risk Stratification: Low risk Stress Interpretation Appropriate hemodynamic response to exe rcise. No significant ST T wave changes with exercise. EKG portion is negative for ischemia by diagnostic criteria. RESULTS Global LVEF (rest): Normal (LVEF >50%) Global LVEF (stress): Normal (LVEF >50% ) ECG No significant ST segment shifts noted. ARRHYTHMIAS No rhythm abnormality. SYMPTOMS Chest pain was reproduced and did NOT r equire termination of the test. Fatigue Musculoskeletal Protocol completed. Predicted heart rat e achieved. No cardiovascular symptoms with maximal exercise. M-MODE/2D MEASUREMENTS & CALCULATIONS EF Estimated: 65 % PROCEDURE Doppler Quality: Good quality pulse, con tinuous wave, and color Doppler was performed and interpreted. 2-D Quality:Good quality 2-dimensional e cho was performed and interpreted. Indications: Chest pain. Contrast Medium: Definity. Definity Amt. - 0.4 ml Height: 67.5 inches Weight: 195 pounds B SA: 2.01 m^2 BMI: 30.09 kg/m^2 Rhythm: Sinus *RN implemented OUTPATIENT stress testin g Plan of Care. *Patient educated on test, all questions answered by: TOMMY MARTÍNEZ. *IV Size: 24 ga.; IV Location: left; # o f attempts: 2; Vein: accessory cephalic vein. *Suboptimal study; Echo dropout of the a nterior, lateral, apical, septal, inferior wall/s. 6 of 6 segments in standard Apical 4 chamber, 3 chamber, 2 chamber view/s are not visu alized on study. Definity contrast was used due to suboptimal endo cardial definition. With the use of Definity, the segments of the lef t ventricle were reasonably visualized. BILLING ICD 9 Codes 1) 786.50-CHEST PAIN NOS. SIGNATURE DEMOGRAPHICS Patient Name ?? LORE ROSS Boni ??Room Number ?OUTPT Patient Number [id number] ? Bennett e of Study ?02/26/2011 Accession ?[id number] ? Interpreting ? Darian Plata MD Number ?Physician Date of ??1990 ? Ord ering Physician LEAH STYLES ?MD Primary ?LEAH STYLES Att ending ?LEAH STYLES Physician ?MD ? Physician ?MD ? Heat Set Operator ?TOMMY, KALEN Nurse ?MAURICIO, RN Transcriptions Leila Mendez - 03/27/2016 9:14 PM C STNotes Recorded by Kayla Villasenor LPN on 02/26/2011 at 12:02 PMCalled and spoke with Destini. Told her the Stress Echocardiogram was negative.------Notes Recorded by Leah Styles MD on 02/26/2011 at 9:14 AM Please notify that stress echo is normal .Thanks Leah Styles MD PN ECHO ORDERABLES Performing Organization Address City/State/ZIP Code Phon e Number PN ECHO documented in this encounter Visit Diagnoses Diagnosis Chest pain Chest pain, unspecified documented in this encounter Care Teams Lan Administrator Relationship Specialty Start Date End Date Kaelyn Lr PA-C PCP - General 05/18/10 06/05/13 [address] [facility] [address] [place], [place] [id number] documented as of this encounter
--- OUTSIDE RECORDS SUMMARY | 2021-11-01 11:31 | XMS_ITS | Encounter Summary ---
:1990 Author Organization [employer] Address [address] [place] [address] Care Team Providers Name Role Phone AdelineEverettmallorie Plata PA-C Primary Care Provider Reason for Visit Reason Comments Headache Encounter Details Date Type Department Care Team Description 02/25/2011 Office Visit [facility] Leah Smith MD Headache; [address] [place] [address] [place] [address] [phone] (Wo rk) Social History Tobacco Use Types Packs/Day Years Used Date Smoking Tobacco: Never Assessed Sex Assigned at Date Recorded Not on file documented as of this encounter Last Filed Vital Signs Vital Sign Reading Time Taken Comments Blood Pressure 108/76 02/25/2011 10:23 AM FINANCIAL ADVISOR TRAINEE Pulse 84 02/25/2011 10:23 AM FINANCIAL ADVISOR TRAINEE Temperature - - Respiratory Rate - - Oxygen Saturation - - Inhaled Oxygen Concentration - - Weight 88.7 kg (195 lb 9.6 oz) 02/25/2011 10:23 AM FINANCIAL ADVISOR TRAINEE Height - - Body Mass Index 30.18 10/10/2010 1:42 PM CDT documented in this encounter Progress Notes Leah Styles MD - 02/26/2011 1:23 PM CST Progress Notes signed by Leah Styles MD at 02/26/11 1403 Author: Leah Styles MD Service: (none) Author Type: Physician Filed: 02/26/11 1400 Note Time: 02/26/11 1323 Status: Signed Insecticide Mixer: Leah Styles MD (Physician) NAME: DESTINI TORREZ MR#: [id number] CSN: [id number] AUTHENTICATING CLINICIAN: Leah Styles MD CONFIRM #: [id number] LOC: 502 CLINIC PROGRESS NOTE DATE OF VISIT: 02/25/2011 : 1990 CHIEF COMPLAINT: Headaches and chest pain. HISTORY OF PRESENT ILLNESS: Destini is a 20-year lady who today came in with concerns of headache that she is having for the last 1 month. She gets a headache every day. It is usually once a day, but it could be 2-3 times in a day. When she gets the headache it is 4-6 out of 10 in severity. She has been taking Tylenol, also for the headaches. It is not associated with any nausea, vomiting or photophobia. The headache is more like a dull ache with occasional sharp pain. Can last up to 1-2 hours. She also has an appointment scheduled for eye exam this afternoon. She also complains of neck pain and stiffness, but no fever. No recent stressors. She denies any associated numbness or tingling. She also has complaint of chest pain that she gets off and on. It can happen at any time. She also had the chest pain in the morning today. The pain is usually 2-3 out of 10 in severity. It is like a dull ache with associated nausea, but no vomiting. No dizziness. She occasionally gets heartburn, but no burping, bloating or breathing difficulty. Denies any risk of . Currently she does not have any chest pain. REVIEW OF SYSTEMS: Negative. PAST MEDICAL HISTORY: None. MEDICATIONS: control pill. ALLERGIES: Reviewed. SOCIAL HISTORY: Patient does not smoke. FAMILY HISTORY: Premature coronary artery disease in the family. OBJECTIVE: Blood pressure 108/76, pulse is 84, weight is 195.6 pounds. GENERAL: Patient is comfortable and in no acute distress. CARDIOVASCULAR: S1 and S2 regular. LUNGS: Clear to auscultation bilaterally. NEURO: No focal finding. MUSCULOSKELETAL: Patient is tender on the paraspinal area of the neck and on the trigger point of the occipital area. ASSESSMENT: 1.Tension headache. Recommend to proceed with the eye exam. I recommend physical therapy. Also given a prescription of Flexeril to use as needed. Side effects of the medication have been reviewed. 2. Chest pain. I will check a CBC on the patient. I did do an EKG that showed normal sinus rhythm, but I cannot rule out anterior infarct. We are going to proceed with stress echo for further evaluation. SS:MEDQ C: CONFIRM #: [id number] NCIAL ADVISOR TRAINEE documented in this encounter Plan of Treatment Not on filedocumented as of this encounter Procedures Procedure Name Priority Date/Time Associated Comments Diagnosis ECG 12 LEAD Routine 02/25/2011 11:19 AM Chest pain Results for this OUTPATIENT FINANCIAL ADVISOR TRAINEE procedure are i n the results section. documented in this encounter Results ECG 12 Lead Outpatient (02/25/2011 11:19 AM FINANCIAL ADVISOR TRAINEE) P athologist Signature Ventricular Rate 73 BPM [facility] Atrial Rate 73 BPM [facility] P-R Interval 156 ms [facility] QRS Duration 90 ms [facility] QT 394 ms [facility] QTc 434 ms [facility] P Sheridan -16 degrees [facility] R Sher[place] 44 degrees M[facility] T Sheridan 30 degrees [facility] Specimen (Source) Anatomical Collection Method Collection Time Re ceived Time Location / / Volume Laterality 02/25/2011 11:19 AM FINANCIAL ADVISOR TRAINEE Narrative [facility]USE [facility] - 05/23/2019 4:11 PM CDT Sinus rhythm Cannot rule out Anterior infarct , age u ndetermined Abnormal ECG No previous ECGs available Procedure Note Epic, Internal Processing - 05/27/2019Fo rmatting of this note might be different from the original. Sinus rhythm Cannot rule out Anterior infarct , age u ndetermined Abnormal ECG No previous ECGs available Leah Styles MD PN ECG ORDERABLES Performing Organization Address City/State/ZIP Code Phon e Number [facility] [address] [place] [address] documented in this encounter Visit Diagnoses Diagnosis Headache(784.0) Headache Chest pain Chest pain, unspecified documented in this encounter Care Teams Talent Partner Relationship Specialty Start Date End Date Kaelyn Lr PA-C PCP - General 05/18/10 06/05/13 [address] [facility] [address] [place] [address] documented as of this encounter
--- OUTSIDE RECORDS SUMMARY | 2021-11-01 11:32 | XMS_ITS | Encounter Summary ---
:1990 Author Organization [facility] Address [address] [place] [address] Care Team Providers Name Role Phone Adeline Kaelyn Plata PA-C Primary Care Provider Encounter Details Date Type Department Care Team Description 08/07/2008 PN Conversion Only Lyn Smith [address] [facility], SENIOR GAME DESIGNER, [place] [address] [facility] [place] [address] (Wo rk) Social History Tobacco Use Types Packs/Day Years Used Date Smoking Tobacco: Never Assessed Sex Assigned at Date Recorded Not on file documented as of this encounter Plan of Treatment Not on filedocumented as of this encounter Procedures Procedure Name Priority Date/Time Associated Comments Diagnosis SEXUALLY TRANSMITTED Routine 08/07/2008 11:51 Res ults for this DISEASE PROBE AM CDT procedure are in the results section. ANATOMICAL PATH Routine 08/07/2008 10:40 Results for this LIQUID BASED AM CDT procedure are i n the results section. documented in this encounter Results Sexually Transmitted Disease Probe (08/07/2008 11:51 AM CDT) [facility] Method Time Signature Sexually SEE TEXT HP CONVERSION Transmitted Disease Probe Comment: Patient: DESTINI TORREZ Sexually Trans Disease Probe ?Collected: ??[id number] ??[id number] Source: ENDOCERV ?Processed: ??[id number] ??[id number] ? 1V Final Report ------ ?[id number] ??[id number] No Chlamydia trachomatis detected by amp lified DNA assay No Neisseria gonorrhoeae detected by amp lified DNA assay The Probete Amplified DNA assay is gigi red by the FDA for non-medicolegal diagnostic testing in the adult population. Specimen (Source) Anatomical Collection Method Collection Time Re ceived Time Location / / Volume Laterality 08/07/2008 11:51 AM CDT Lyn Cardoso APRN, CLINIC BUSINESS MANAGER LAB_1 Performing Organization Address City/State/ZIP Code Phon e Number HP CONVERSION Pap Smear (08/07/2008 10:40 AM CDT) [facility] gist Method Time Signature PAP Smear SEE TEXT No normal HP CONVERSION Liquid Based range Comment: Patient: DESTINI TORREZ ? CERVICAL CYTOLOGY REPORT Pathology # ??[id number] ?Date Obtained: ? Date Received: CYTOLOGIC IMPRESSION: Negative for intraepithelial lesion or m alignancy. Verified 08/13/08 by: ??JLD ?(electronic signature) ? MEL TIONAL DATA LMP: CLINICAL HIST LIQUID BASED PAP CERVICAL SPECIMEN ADEQUACY: ?? Satisfactory. ENDOCERVICAL CELLS: ??Present. Specimen (Source) Anatomical Collection Method Collection Time Re ceived Time Location / / Volume Laterality 08/07/2008 10:40 AM CDT Lyn Cardoso APRN, CLINIC BUSINESS MANAGER LAB_1 Performing Organization Address City/State/ZIP Code Phon e Number HP CONVERSION documented in this encounter Visit Diagnoses Not on filedocumented in this encounter Care Teams Database Marketing Manager Relationship Specialty Start Date End Date Kaelyn Lr PA-C PCP - General 05/18/10 06/05/13 [address] [facility] [address] [place] [address] documented as of this encounter
--- OUTSIDE RECORDS SUMMARY | 2021-11-01 11:32 | XMS_ITS | Encounter Summary ---
:1990 Author Organization [facility] Address [address] [place] [address] Care Team Providers Name Role Phone Kaelyn Lr PA-C Primary Care Provider Encounter Details Date Type Department Care Team Description 03/22/2007 PN Conversion [place] [address] [address] [place] [address] [place] [address] Social History Tobacco Use Types Packs/Day Years Used Date Smoking Tobacco: Never Assessed Sex Assigned at Date Recorded Not on file documented as of this encounter Plan of Treatment Not on filedocumented as of this encounter Visit Diagnoses Not on filedocumented in this encounter Care Teams Windows Application Developer Relationship Specialty Start Date End Date Kaelyn Lr PA-C PCP - General 05/18/10 06/05/13 [address] [facility] [address] [place] [address] documented as of this encounter
--- OUTSIDE RECORDS SUMMARY | 2021-11-01 11:32 | XMS_ITS | Encounter Summary ---
:1990 Author [facility] Address [address] [place] [address] Care Team Providers Name Role Phone Adeline Kaelyn Plata PA-C Primary Care Provider Encounter Details Date Type Department Care Team Description 02/26/2008 Office Visit [facility] [place] [address] [facility] [address] [place] [address] [place] [address] [phone] (Wo rk) Social History Tobacco Use Types Packs/Day Years Used Date Smoking Tobacco: Never Assessed Sex Assigned at Date Recorded Not on file documented as of this encounter Last Filed Vital Signs Vital Sign Reading Time Taken Comments Blood Pressure 124/81 02/26/2008 11:43 AM CANOPY STRINGER Pulse 96 02/26/2008 11:43 AM CANOPY STRINGER Temperature 36.1 ??C (97 ??F) 02/26/2008 11:43 AM CANOPY STRINGER C: 36. 1 C Respiratory Rate 16 02/26/2008 11:43 AM CANOPY STRINGER Oxygen Saturation - - Inhaled Oxygen Concentration - - Weight - - Height - - Body Mass Index - - documented in this encounter Progress Notes Hui Diggs MD - 02/26/2008 12:01 AM CST Progress Notes signed by Hui Diggs MD at 03/01/08 9587 Author: Hui Diggs MD Service: (none) Author Type: Physician Filed: 06/07/10 1147 Note Time: 02/26/08 0001 Status: Signed Veterinary Livestock Inspector: Hui Diggs MD (Physician) NAME: DESTINI TORREZ MR#: [id number] ACCT: [id number] VISIT: [id number] DICTATING CLINICIAN: Hui Diggs MD CONFIRM #: [id number] LOC: 520 CLINIC PROGRESS NOTE DATE OF VISIT: 02/26/2008 SUBJECTIVE: Destini is an 17-year-old here today for dysuria. She has had this for about 4 days. She has low abdominal pain and pressure. Frequency and urgency. No fever. It is worse at night. No back pain. She has a little white vaginal discharge but nothing really abnormal. She is sexually active. Same partner for 2 months. Has not had any STD testing. He has no symptoms. She is otherwise healthy. MEDICATIONS: Only medicine is Zovia. She has not missed any pills. Last menstrual period: Is due next week. She is not a smoker. ADR/ALLERGIES: PHENERGAN. OBJECTIVE: VS: BP: 124/81. T: 97.0. P: 96. R: 16. GENERAL: Alert, in no acute distress. ABDOMEN: Soft, nontender. BACK: No CVA tenderness. Urine definitely positive with 25 to 49 white cells, no red cells, a few bacteria. Culture will be done. ASSESSMENT: UTI. PLAN: Cipro 500 mg b.i.d. for 5 days. Return to clinic if she is worse or not improving, especially if she develops fever, chills, back pain, nausea, vomiting. If her urine culture was to be negative she should finish the medicine but then follow up for further evaluation such as STD testing. HAH:[id number] C: 02/26/08 20:28 CONFIRM #: [id number] PY STRINGER documented in this encounter Plan of Treatment Not on filedocumented as of this encounter Visit Diagnoses Not on filedocumented in this encounter Care Teams Restaurant Attendant Relationship Specialty Start Date End Date Kaelyn Lr PA-C PCP - General 05/18/10 06/05/13 [address] [facility] [address] [place] [address] documented as of this encounter
--- OUTSIDE RECORDS SUMMARY | 2021-11-01 11:32 | XMS_ITS | Encounter Summary ---
:1990 Author Organization [facility] Address [address] [place] [address] Care Team Providers Name Role Phone Adeline Kaelyn Plata PA-C Primary Care Provider Reason for Visit Reason Comments Other Encounter Details Date Type Department Care Team Description 09/07/2008 Telephone [facility] Sharon Tamayo, ZHEN Other [address] [place] [address] Social History Tobacco Use Types Packs/Day Years Used Date Smoking Tobacco: Never Assessed Sex Assigned at Date Recorded Not on file documented as of this encounter Progress Notes Center, Message - 09/07/2008 1:58 PM CDT Phone Note filed by test company at 06/06/10811 Author: test company Service: (none) Author Type: (none) Filed: 06/06/10811 Note Time: 09/07/08 9534 Status: Signed Aerospace Stress Engineer: test company (Resource) Referral/Consult Caller Name/Relationship:Darren-Mom Primary News Producer:Adeline What referral is needed?needs ref for Dr Rivas in [facility] - has appt for 10/15 for mole removal. Please call to confirm w/Mom. Why is referral needed? mole removal What is needed from us?ref Appointment already scheduled?yes When/With whom/Where?Dr Lu Rivas [facility] Insurance Carrier: Parts Remover:Darren Hernandez call back number:[phone] Is it ok to leave a confidential message on this voicemail?yes *ECODE~PNREF2 Created on 07Sep2008 1:58pm by TIM CORONA On 07Sep2008 2:30pm KAELYN LR wrote: I documented the need for a referral in my visit note which typically satisfies insurance requirements. Acknowledged by KAELYN LR on 2:30pm On 07Sep2008 2:50pm SHARON CAVAZOS wrote: gave darren above message. Acknowledged by SHARON CAVAZOS on 2:50pm UCT DESIGN SPECIALIST documented in this encounter Plan of Treatment Not on filedocumented as of this encounter Visit Diagnoses Not on filedocumented in this encounter Care Teams Electromatic Typist Relationship Specialty Start Date End Date Kaelyn Lr, PAAngel LuisC PCP - General 05/18/10 06/05/13 [address] [facility] [address] [place] [address] documented as of this encounter
--- OUTSIDE RECORDS SUMMARY | 2021-11-01 11:32 | XMS_ITS | Encounter Summary ---
:1990 Author Organization [facility] Address [address] [place] [address] Care Team Providers Name Role Phone Adeline Kaelyn Plata PA-C Primary Care Provider Reason for Visit Reason Comments Other Encounter Details Date Type Department Care Team Description 11/13/2009 Telephone [facility] Maryanne Rodriguez MA Other Obstetrics/Gynecolog y [address] [place] [address] Social History Tobacco Use Types Packs/Day Years Used Date Smoking Tobacco: Never Assessed Sex Assigned at Date Recorded Not on file documented as of this encounter Progress Notes Pedro Cardoso APRN, CNP - 11/13/2009 8:05 AM CDT Phone Note filed by FERMÍN Bueno at 06/07/101947 Author: FERMÍN Bueno Service: (none) Author Type: Nurse Practitioner Filed: 06/07/101947 Note Time: 11/13/09804 Status: Signed Senior Director Of Strategy: FERMÍN Bueno (Nurse Practitioner) Message was left for Pt again regarding the need to schedule colpo. Pt is to return my call Created on 13Nov2009 8:05am by PEDRO CARDOSO On [id number] 2:46pm MARYANNE RODRIGUEZ wrote: i spoke with pt and she made appt with Dr Allison for 12/27/2009 for colpo. Acknowledged by PEDRO CARDOSO on [id number] 3:12pm Electronically signed by Pedro Cardoso, PRODUCT DEVELOPMENT CHEMIST, HEAD ORTHOPEDIC TEAM PHYSICIAN at 01/16/2016 4:19 AM SUSTAINABILITY MANAGER documented in this encounter Plan of Treatment Not on filedocumented as of this encounter Visit Diagnoses Not on filedocumented in this encounter Care Teams Retail Merchandiser Relationship Specialty Start Date End Date Kaelyn Lr PA-C PCP - General 05/18/10 06/05/13 [address] [facility] [address] [place] [address] documented as of this encounter
--- OUTSIDE RECORDS SUMMARY | 2021-11-01 11:32 | XMS_ITS | Encounter Summary ---
:1990 Author Organization [facility] Address [address] [place] [address] Care Team Providers Name Role Phone Adeline Kaelyn Plata PA-C Primary Care Provider Reason for Visit Reason Comments Other Encounter Details Date Type Department Care Team Description 05/21/2008 Telephone Lyn Abdul, Other Obstetrics/Gynecolog y PRIMARY CARE PEDIATRICIAN, CRYSTAL EVALUATOR [address] [place] [address] [place] [address] (Wo rk) Social History Tobacco Use Types Packs/Day Years Used Date Smoking Tobacco: Never Assessed Sex Assigned at Date Recorded Not on file documented as of this encounter Progress Notes Leann Salazar - 05/21/2008 3:06 PM CDT Phone Note filed by Leann Salazar MA at 06/05/10 0168 Author: Leann Salazar MA Service: (none) Author Type: Sergeant Of Officers Filed: 06/05/10 8028 Note Time: 05/21/08 1506 Status: Signed Wastewater Engineer: Leann Salazar MA (Sergeant Of Officers) Prescription Refill Please provide enough refills to last until patient's next visit. Comment:- Last pap 05/17/07 Pharmacy Seq #:- [phone] Pharmacy [facility] Street or City:- [address] [place] [place], [place] Clinician Name:- Gwendolyn Allen Drug Name/Strength:- Zovia Sig: Dose/Route/Freq:- Take one tablet by mouth one time daily Quantity & Last Fill:- 28 04/23/08 Created on 21May2008 3:06pm by LEANN SALAZAR On 21May2008 4:22pm LYN ALLEN wrote: Okay x 3 months, Pt must be seen prior to next refill Acknowledged by LYN ALLEN on 4:22pm OPATHIC DOCTOR documented in this encounter Plan of Treatment Not on filedocumented as of this encounter Visit Diagnoses Not on filedocumented in this encounter Care Teams Inspector Purchased Parts Relationship Specialty Start Date End Date Kaelyn Lr PA-C PCP - General 05/18/10 06/05/13 [address] [facility] [address] [place] [address] documented as of this encounter
--- OUTSIDE RECORDS SUMMARY | 2021-11-01 11:32 | XMS_ITS | Encounter Summary ---
:1990 Author Organization [facility] Address [address] [place] [address] Care Team Providers Name Role Phone AdelineEverettmallorie Plata PA-C Primary Care Provider Reason for Visit Reason Comments Other Encounter Details Date Type Department Care Team Description 04/12/2007 Telephone [facility] Jeanette Martin RN Other [address] [place] [address] Social History Tobacco Use Types Packs/Day Years Used Date Smoking Tobacco: Never Assessed Sex Assigned at Date Recorded Not on file documented as of this encounter Progress Notes Jeanette Martin RN - 04/12/2007 9:10 PM CST Phone Note filed by Jeanette Martin RN at 06/04/101531 Author: Jeanette Martin RN Service: (none) Author Type: Registered Nurse Filed: 06/04/101531 Note Time: 04/12/072109 Status: Signed Line Clearance Foreman: Jeanette Martin RN (Registered Nurse) Mom calling ; pt is having jerking of her legs after taking an antinausea med; Transferred to the PC to discuss further re; possible se; Created on 12Apr2007 9:10pm by JEANETTE MARTIN ER AND TRANSITION TEACHER documented in this encounter Plan of Treatment Not on filedocumented as of this encounter Visit Diagnoses Not on filedocumented in this encounter Care Teams Pump Assembler Relationship Specialty Start Date End Date Kaelyn Lr PA-C PCP - General 05/18/10 06/05/13 [address] [facility] [address] [place] [address] documented as of this encounter
--- OUTSIDE RECORDS SUMMARY | 2021-11-01 11:32 | XMS_ITS | Encounter Summary ---
:1990 Author Organization [facility] Address [address] [place] [address] Care Team Providers Name Role Phone Kaelyn Lr PA-C Primary Care Provider Encounter Details Date Type Department Care Team Description 02/27/2008 PN Con[place] [address] [address] [place] [address] [place] [address] (Wo rk) Social History Tobacco Use Types Packs/Day Years Used Date Smoking Tobacco: Never Assessed Sex Assigned at Date Recorded Not on file documented as of this encounter Plan of Treatment Not on filedocumented as of this encounter Visit Diagnoses Not on filedocumented in this encounter Care Teams Logging Shovel Operator Relationship Specialty Start Date End Date Kaelyn Lr PA-C PCP - General 05/18/10 06/05/13 [address] [facility] [address] [place] [address] documented as of this encounter
--- OUTSIDE RECORDS SUMMARY | 2021-11-01 11:32 | XMS_ITS | Encounter Summary ---
:1990 [facility] Address [address] [place] [address] Care Team Providers Name Role Phone Adeline Kaelyn Plata PA-C Primary Care Provider Encounter Details Date Type Department Care Team Description 08/22/2008 Office Visit [facility] Laurie Hernandez APRN, [facility] TELECOMMUNICATIONS NETWORK PLANNER [address] [address] [place] [address] [place] [address] [phone] (Wo rk) Social History Tobacco Use Types Packs/Day Years Used Date Smoking Tobacco: Never Assessed Sex Assigned at Date Recorded Not on file documented as of this encounter Last Filed Vital Signs Vital Sign Reading Time Taken Comments Blood Pressure 102/60 08/22/2008 9:35 AM CDT Pulse 76 08/22/2008 9:35 AM CDT Temperature - - Respiratory Rate - - Oxygen Saturation - - Inhaled Oxygen Concentration - - Weight 77.6 kg (170 lb 15.8 oz) 08/22/2008 9:35 AM CDT C: 77.6kg Height - - Body Mass Index 27.18 08/07/2008 11:02 AM CDT documented in this encounter Progress Notes Laurie Hernandez APRN, TELECOMMUNICATIONS NETWORK PLANNER - 08/22/2008 12:01 AM CDT Progress Notes signed by CABRERA Osuna at 08/30/08 1336 Author: CABRERA Osuna Service: (none) Author Type: (none) Filed: 06/07/10 1621 Note Time: 08/22/08 0001 Status: Signed Commissary Helper: CABRERA Osuna (Nurse Practitioner) NAME: DESTINI TORREZ MR#: [id number] ACCT: [id number] VISIT: [id number] DICTATING CLINICIAN: CABRERA Osuna CONFIRM #: [id number] LOC: 506 CLINIC PROGRESS NOTE DATE OF VISIT: 08/22/2008 SUBJECTIVE: : 1990. 18-year-old woman, in clinic with concerns regarding a lump on the abdomen. HPI: Destini first noticed this a week ago and when she noticed it, it was slightly tender and a little bit reddened. It subsequently opened and extruded some content. Once that happened the pain went away, but she said the small lump persists. She has never previously had a problem with this lesion and did not notice it until 1 week ago. PAST MEDICAL HISTORY: Endonasal sinus surgery and varicella zoster. MEDICATIONS: Zovia . ADR/ALLERGIES: PROMETHAZINE. SOCIAL HISTORY: Nonsmoker. . OBJECTIVE: VS: BP: 102/60. P: 76. Wt: 171. Destini is a well-appearing young lady, in no obvious distress. Alert and oriented x3. SKIN: Warm, dry and nondiaphoretic. Notably, she has shaved hair from the abdomen and around the umbilicus. About 3 cm inferior of the umbilicus, there is an induration of approximately 1 cm. There is a central pore and some slight erythema without induration or tenderness. No fluctuance and no purulence. ASSESSMENT: Previously infected sebaceous cyst. PLAN: I advised her to discontinue shaving the abdomen, because this can introduce skin bacteria to the hair follicle and cause infection of the cyst. Advised that should it become tender again or reddened, to hot pack it for 10 minutes at a time, 3 or 4 times a day and extrude the contents as much as possible on those occasions. Wash with warm soapy water a couple of times a day, should that occur. If this happens frequently, I would suggest that she follow up so that we could have excision of the sebaceous cyst by a surgeon. She is in agreement with the above plan. LAE:[id number] C: 08/22/08 10:52 CONFIRM #: [id number] documented in this encounter Plan of Treatment Not on filedocumented as of this encounter Visit Diagnoses Not on filedocumented in this encounter Care Teams Regional Facilities Specialist Relationship Specialty Start Date End Date Kaelyn Lr PA-C PCP - General 05/18/10 06/05/13 [address] [facility] [address] [place] [address] documented as of this encounter
--- OUTSIDE RECORDS SUMMARY | 2021-11-01 11:32 | XMS_ITS | Encounter Summary ---
:1990 Author Organization [facility] Address [address] [place] [address] Care Team Providers Name Role Phone Adeline Kaelyn Plata PA-C Primary Care Provider Reason for Visit Reason Comments Other Encounter Details Date Type Department Care Team Description 11/06/2009 Telephone Pedro Abdul, Other Obstetrics/Gynecolog y [facility] SUBRAMANIAN [address] [place] [address] [place] [address] (Wo rk) Social History Tobacco Use Types Packs/Day Years Used Date Smoking Tobacco: Never Assessed Sex Assigned at Date Recorded Not on file documented as of this encounter Progress Notes Pedro Allen APRN, CNP - 11/06/2009 1:10 PM CDT Phone Note filed by FERMÍN Bueno at 06/07/101916 Author: FERMÍN Bueno Service: (none) Author Type: Nurse Practitioner Filed: 06/07/101916 Note Time: 11/06/090 Status: Signed Edger Feeder: FERMÍN Bueno (Nurse Practitioner) Mesage was left for pt to return my call Created on 06Nov2009 1:10pm by PEDRO ALLEN On 08Nov2009 3:45pm KARIN PERRY wrote: Pt. calling Gwendolyn back. Tried Gwendolyn's ext ([phone]) but reached vm. Let pt. know will send note back to Gwendolyn w/ her phone # tcb: [phone]. On 08Nov2009 4:30pm PEDRO ALLEN wrote: Pt was informed of abnormal Pap and the need for colpo. I explained colpo, Pt voiced understanding. Pt stated that she will call and make appointment Acknowledged by PEDRO ALLEN on 4:30pm Electronically signed by Pedro Allen, PERMACULTURE CONTRACTOR, LEARNING AND DEVELOPMENT COORDINATOR at 01/16/2016 7:47 AM DRILL PRESS HAND documented in this encounter Plan of Treatment Not on filedocumented as of this encounter Visit Diagnoses Not on filedocumented in this encounter Care Teams Family Program Specialist Relationship Specialty Start Date End Date Kaelyn Lr PA-C PCP - General 05/18/10 06/05/13 [address] [facility] [address] [place] [address] documented as of this encounter
--- OUTSIDE RECORDS SUMMARY | 2021-11-01 11:32 | XMS_ITS | Encounter Summary ---
:1990 Author Organization [facility] Address [address] [place] [address] Care Team Providers Name Role Phone Kaelyn Lr PA-C Primary Care Provider Encounter Details Date Type Department Care Team Description 04/12/2007 PN Conversion Only [facility] N Meaagn Gordon, PAAngel LuisC [address] [address] [place] [address] (Wo rk) Social History Tobacco Use Types Packs/Day Years Used Date Smoking Tobacco: Never Assessed Sex Assigned at Date Recorded Not on file documented as of this encounter Plan of Treatment Not on filedocumented as of this encounter Visit Diagnoses Not on filedocumented in this encounter Care Teams Machinery Erector Relationship Specialty Start Date End Date Kaelyn Lr PA-C PCP - General 05/18/10 06/05/13 [address] [facility] [address] [place] [address] documented as of this encounter
--- OUTSIDE RECORDS SUMMARY | 2021-11-01 11:32 | XMS_ITS | Encounter Summary ---
:1990 Author Organization [employer] Address [address] [place] [address] Care Team Providers Name Role Phone Kaelyn Lr PA-C Primary Care Provider Encounter Details Date Type Department Care Team Description 03/02/2008 Office Visit [facility] Kaelyn Garay PA-C [address] [address] [place] [address] [address] [place], [place] [address] Social History Tobacco Use Types Packs/Day Years Used Date Smoking Tobacco: Never Assessed Sex Assigned at Date Recorded Not on file documented as of this encounter Last Filed Vital Signs Vital Sign Reading Time Taken Comments Blood Pressure 104/64 03/02/2008 3:06 PM [facility] Pulse 96 03/02/2008 3:06 PM [facility] Temperature 36.1 ??C (97 ??F) 03/02/2008 3:06 PM [facility] C: 36.1 C Respiratory Rate - - Oxygen Saturation - - Inhaled Oxygen Concentration - - Weight - - Height - - Body Mass Index - - documented in this encounter Progress Notes Kaelyn Lr - 03/02/2008 12:01 AM CST Progress Notes signed by Kaelyn Lr PA-C at 03/08/08 1700 Author: Kaelyn Lr PA-C Service: (none) Author Type: (none) Filed: 06/07/10 1151 Note Time: 03/02/08 0001 Status: Signed Or Manager: Kaelyn Lr PA-C (Physician Income Tax Expert) NAME: DESTINI TORREZ MR#: [id number] ACCT: [id number] VISIT: [id number] DICTATING CLINICIAN: Kaelyn Lr PA-C CONFIRM #: [id number] LOC: 502 CLINIC PROGRESS NOTE DATE OF VISIT: 03/02/2008 SUBJECTIVE: : 1990. HISTORY OF PRESENT ILLNESS: Desitni is an 17-year-old female who presents to clinic today due to a recent urinary tract infection, which was diagnosed and treated by our urgent care on 02/26/08. Destini has just recently finished her 5 days of ciprofloxacin, with the last dose being today. She is returning to school in [place] on Wednesday, and wants to be sure that the infection has completely resolved. Destini states that her younger sister, age 13, recently had a very serious bladder infection, which then progressed to a kidney infection and resulted in a multiple-day hospital stay. As such, Destini and her mom are quite vigilant to be sure that Destini's recent bout of UTI has been cleared. Destini states that she is feeling much better than she was 5 days ago when she had the onset of symptoms. She currently has no dysuria. She is urinating normal amounts. No frequency, no urgency. She denies any hematuria. No fevers or chills. No nausea, no vomiting, no diarrhea or constipation. Furthermore, she has no vaginal symptoms. She has no pain in her back, abdomen, or pelvis. MEDICATIONS: Reviewed and updated in patient health profile today. ADR/ALLERGIES: ALLERGIES REVIEWED AND UPDATED IN PATIENT HEALTH PROFILE TODAY. SOCIAL HISTORY: Destini is a freshman at the [employer]. She does not use tobacco. She is sexually active with 1 partner. She currently has her menstrual period. No concerns over . OBJECTIVE: VS: BP: 104/64. T: 96.9. P: 96. GENERAL: Well-developed, well-nourished, young female in no acute distress. Pleasant, interactive, and cooperative. GI: Costovertebral angle tenderness. Normal bowel sounds. ABDOMEN: Nontender to palpation with both light and deep pressure. No hepatosplenomegaly or masses. No rebound, no guarding. Urinalysis today shows 3-4 white blood cells per high-powered field which is within normal limits, 3-4 red blood cells per high-powered field, a moderate amount of mucus, bacteria, and a few epithelial cells. In addition, patient has minor proteinuria 100 mg/dL, and minor glucosuria 250 mg/dL. Subsequent lab work today included checking electrolytes, glucose, and STAT hemoglobin A1c. All values were within normal limits. ASSESSMENT: 1. UTI, resolving. 2. Glucosuria. 3. Proteinuria. PLAN: In further discussion with Destini today regarding her lab results, she states she has only been up for the last 3 hours. She has had no water to drink today, 1 glass of cranberry juice, and a piece of toast to eat. As such, believe laboratory results today, namely, the trace amount of ketones and the protein in the urine, are most likely secondary to minor dehydration. There are no signs of an active infection at this point in time which would warrant further treatment as far as the UTI goes. Also, no evidence of diabetes as her glucose is 72 and A1c is 5.0. Did advise Destini of the aforementioned lab findings and recommended that she have a follow-up urinalysis done at the [facility] to ensure proteinuria and glucosuria do not persist. All patient's questions were answered today. MJL:[id number] C: 03/03/08 07:02 CONFIRM #: [id number] ER CAS[facility] documented in this encounter Plan of Treatment Not on filedocumented as of this encounter Visit Diagnoses Not on filedocumented in this encounter Care Teams Settlement Processor Relationship Specialty Start Date End Date Kaelyn Lr PA-C PCP - General 05/18/10 06/05/13 [address] [facility] [address] [place] [address] documented as of this encounter
--- OUTSIDE RECORDS SUMMARY | 2021-11-01 11:32 | XMS_ITS | Encounter Summary ---
:1990 Author Organization [employer] Address [address] [place] [address] Care Team Providers Name Role Phone Adeline Kaelyn Plata PA-C Primary Care Provider Encounter Details Date Type Department Care Team Description 05/10/2009 Office Visit Karol Kebede, Obstetrics/Gynecolog y [facility] [address] [place], [place] [id number] Social History Tobacco Use Types Packs/Day Years Used Date Smoking Tobacco: Never Assessed Sex Assigned at Date Recorded Not on file documented as of this encounter Last Filed Vital Signs Vital Sign Reading Time Taken Comments Blood Pressure 118/62 05/10/2009 3:54 PM CDT Pulse - - Temperature - - Respiratory Rate - - Oxygen Saturation - - Inhaled Oxygen Concentration - - Weight 86.1 kg (189 lb 12.7 oz) 05/10/2009 3:54 PM CDT C: 86.1kg Height - - Body Mass Index 30.17 08/07/2008 11:02 AM CDT documented in this encounter Progress Notes Karol Murrell, [facility] SU[employer]IAN - 05/10/2009 12:01 AM CDT Progress Notes signed by FERMÍN Choudhary at 05/11/09 1815 Author: FERMÍN Choudhary Service: (none) Author Type: Nurse Practitioner Filed: 06/07/10 2259 Note Time: 03/26/10 0001 Status: Signed Universal Grinder Operator: FERMÍN Choudhary (Nurse Practitioner) Subjective: Patient presents to discuss contraceptive options. She is presently using oral contraceptives but having difficulty remembering to take it consistently. Following discussion regarding all available contraceptive options, she is most interested in either Mirena IUD or Implanon. She would like to check with insurance regarding coverage. Following discussion regarding recommendation to test for chlamydia and gonorrhea prior to the IUD insertion, she would like testing today. She is in a mutually monogamous relationship, but feels it would be a good idea to be absolutely sure. Social history: She is a 18-year-old female. She is a college student. She is single but partnered. Medical/surgical history is updated on patient health profile. Medications/drug allergies are updated in last word. Gynecologic history is negative for abnormal Pap smears or STDs. Last menstrual period 04/24/2009. Obstetric history: Nulliparous. Lifestyle and habits: She is a nonsmoker. Preventative health care: Last annual exam 07/24. Objective: Vital signs as noted in lastword flowsheet. Patient is accompanied by her sister. She is well groomed. She is a good historian. She is oriented to time and date. Exam external genitalia shows normal pink tissue without lesions. Exam internal vaginal vault shows pink rugae. STDPR probe sampling is obtained at cervical os. Bimanual exam shows a uterus which is normal size and shape without tenderness. Adnexal exam unremarkable. Assessment: Contraceptive counseling. STD screening. Plan: Discussed all available contraceptive options to include action, administration, efficacy, benefits versus risk, possible side effects and warning signs. Pamphlets are provided. She is advised to check insurance coverage. She will return to clinic for insertion of IUD or Implanon if desired. STDPR probe pending. She will be informed of test results when available. documented in this encounter Plan of Treatment Not on filedocumented as of this encounter Visit Diagnoses Not on filedocumented in this encounter Care Teams Firefighter Type One Relationship Specialty Start Date End Date Kaelyn Lr PA-C PCP - General 05/18/10 06/05/13 [address] [facility] [address] [place] [address] documented as of this encounter
--- OUTSIDE RECORDS SUMMARY | 2021-11-01 11:32 | XMS_ITS | Encounter Summary ---
:1990 [facility] Address [address] [place] [address] Care Team Providers Name Role Phone Kaelyn Lr PA-C Primary Care Provider Encounter Details Date Type Department Care Team Description 08/18/2007 PN Conversion Only RANDOLPH CONVERSIO N [address] [place] [address] Social History Tobacco Use Types Packs/Day Years Used Date Smoking Tobacco: Never Assessed Sex Assigned at Date Recorded Not on file documented as of this encounter Plan of Treatment Not on filedocumented as of this encounter Visit Diagnoses Not on filedocumented in this encounter Care Teams Mine Superintendent Relationship Specialty Start Date End Date Kaelyn Lr PA-C PCP - General 05/18/10 06/05/13 [address] [facility] [address] [place] [address] documented as of this encounter
--- OUTSIDE RECORDS SUMMARY | 2021-11-01 11:32 | XMS_ITS | Encounter Summary ---
:1990 Author Organization [facility] Address [address] [place] [address] Care Team Providers Name Role Phone Adeline Kaelyn Plata PA-C Primary Care Provider Encounter Details Date Type Department Care Team Description 04/12/2007 PN Conversion Only [place] CON[facility] N Meagan Gordon PA-C [address] [employer] [address] [address] [place] [address] (Wo rk) Social History Tobacco Use Types Packs/Day Years Used Date Smoking Tobacco: Never Assessed Sex Assigned at Date Recorded Not on file documented as of this encounter Plan of Treatment Not on filedocumented as of this encounter Procedures Procedure Name Priority Date/Time Associated Comments Diagnosis STREP GROUP A ANTIGEN Routine 04/12/2007 2:21 PM Results for this TEST LEARNING SPECIALIST procedure are i n the results section. BETA STREP FOLLOWUP Routine 04/12/2007 2:21 PM Re sults for this LEARNING SPECIALIST procedure are i n the results section. MONONUCLEOSIS SCREEN Routine 04/12/2007 1:19 PM R esults for this LEARNING SPECIALIST procedure are i n the results section. COMPLETE BLOOD Routine 04/12/2007 1:19 PM Results for this COUNT-W/DIFF LEARNING SPECIALIST procedure are i n the results section. documented in this encounter Results Strep Group A Antigen Test (04/12/2007 2:21 PM LEARNING SPECIALIST) Analysis Performed At Patho logist Time Signature Strep Group A Negative Negative HP CONVERSION Antigen Test Comment: Culture to follow. Specimen (Source) Anatomical Collection Method Collection Time Re ceived Time Location / / Volume Laterality 04/12/2007 2:21 PM LEARNING SPECIALIST Meagan Gordon PA-C LAB_1 Performing Organization Address [facility] Code Phon e Number HP CONVERSION Beta Strep Followup (04/12/2007 2:21 PM LEARNING SPECIALIST) P athologist Signature Strep Screen SEE TEXT HP CONVERSION Comment: Patient: DESTINI TORREZ Rapid Strep Follow up Culture ? Collected: ??[id number] ??[id number] Source: Throat ?Processed: ??[id number] ??[id number] Final Report ------ ?[id number] ??[id number] No beta hemolytic Strep group A isolated . Specimen (Source) Anatomical Collection Method Collection Time Re ceived Time Location / / Volume Laterality 04/12/2007 2:21 PM LEARNING SPECIALIST Meagan Gordon PA-C LAB_1 Performing Organization Address [facility] Code Phon e Number HP CONVERSION Mononucleosis Screen (04/12/2007 1:19 PM LEARNING SPECIALIST) Patholo gist Method Time Signature Infectious Negative Negative HP CONVERSION Mononucleosis Screen Specimen (Source) Anatomical Collection Method Collection Time Re ceived Time Location / / Volume Laterality 04/12/2007 1:19 PM LEARNING SPECIALIST Meagan Gordon PA-C LAB_1 Performing Organization Address City/State/ZIP Code Phon e Number HP CONVERSION (ABNORMAL) Complete Blood Count-W/Diff (04/12/2007 1:19 PM LEARNING SPECIALIST) [facility] Method Time Signature White Blood Cell 5.9 3.8 - 11.0 HP CONVERSIO N Count K/cmm Red Blood Cell 4.92 4.10 - HP CONVERSION Count 5.10 m/cmm Hemoglobin 13.0 12.0 - HP CONVERSION 16.0 gm/dL Hematocrit 38.6 36.0 - HP CONVERSION 46.0 % Mean Corpuscular 78.4 78.0 - HP CONVERSION Volume 100.0 fl Mean Corpuscular 26.5 24.0 - HP CONVERSION Hemoglobin 34.0 pg Mean Corpuscular 33.7 32.0 - HP CONVERSION Hemoglobin Conc 36.5 gm/dL [place] RDW 15.8 (H) 11.0 - HP CONVERSION 15.0 % Platelet Count 218 140 - 450 HP CONVERSION k/cmm Differential Auto-Dif No normal HP CONVERSION Verify range Neutrophils 4.4 K/cmm HP CONVERSION Absolute Count Neutrophil 73.2 % HP CONVERSION Lymphocyte % 21.0 % HP CONVERSION Monocyte 4.9 % HP CONVERSION Eosinophil 0.3 % HP CONVERSION Basophil % 0.6 % HP CONVERSION Specimen (Source) Anatomical Collection Method Collection Time Re ceived Time Location / / Volume Laterality 04/12/2007 1:19 PM LEARNING SPECIALIST Meagan Gordon PA-C LAB_1 Performing Organization Address City/State/ZIP Code Phon e Number HP CONVERSION documented in this encounter Visit Diagnoses Not on filedocumented in this encounter Care Teams Extruder Relationship Specialty Start Date End Date Kaelyn Lr PA-C PCP - General 05/18/10 06/05/13 [address] [facility] [address] [place] [address] documented as of this encounter
--- OUTSIDE RECORDS SUMMARY | 2021-11-01 11:32 | XMS_ITS | Encounter Summary ---
:1990 [facility] Address [address] [place] [address] Care Team Providers Name Role Phone Adeline Kaelyn Plata PA-C Primary Care Provider Encounter Details Date Type Department Care Team Description 05/17/2007 PN Conversion Only HOWIE CONVERSLyn Siegel [address] [facility] [address], [address] S[address]TER, [place] [address] [facility] [place] [place] [address] (Wo rk) Social History Tobacco Use Types Packs/Day Years Used Date Smoking Tobacco: Never Assessed Sex Assigned at Date Recorded Not on file documented as of this encounter Plan of Treatment Not on filedocumented as of this encounter Procedures Procedure Name Priority Date/Time Associated Comments Diagnosis SEXUALLY TRANSMITTED Routine 05/17/2007 4:53 PM R esults for this DISEASE PROBE CDT procedure are in the results section. ANATOMICAL PATH Routine 05/17/2007 9:07 AM Result s for this LIQUID BASED CDT procedure are i n the results section. documented in this encounter Results Sexually Transmitted Disease Probe (05/17/2007 4:53 PM CDT) [facility] Method Time Signature Sexually SEE TEXT HP CONVERSION Transmitted Disease Probe Comment: Patient: DESTINI TORREZ Sexually Trans Disease Probe ?Collected: ??[id number] ??[id number] Source: ENDOCERV ?Processed: ??[id number] ??[id number] ? 1V Final Report ------ ?[id number] ??[id number] No Chlamydia trachomatis detected by amp lified DNA assay No Neisseria gonorrhoeae detected by amp lified DNA assay [facility] Amplified DNA assay is gigi red by the FDA for non-medicolegal diagnostic testing in the adult population. Specimen (Source) Anatomical Collection Method Collection Time Re ceived Time Location / / Volume Laterality 05/17/2007 4:53 PM CDT Lyn Cardoso APRN, SLOT TAG INSERTER LAB_1 Performing Organization Address City/State/ZIP Code Phon e Number HP CONVERSION Pap Smear (05/17/2007 9:07 AM CDT) [facility] gist Method Time Signature PAP Smear SEE TEXT No normal HP CONVERSION Liquid Based range Comment: Patient: DESTINI TORREZ ? CERVICAL CYTOLOGY REPORT Pathology # ??[id number] ?Date Obtained: ? Date Received: CYTOLOGIC IMPRESSION: Negative for intraepithelial lesion or m alignancy. Fungal organisms identified. Verified 05/19/07 by: ??MB ? (electronic signature) ? MEL TIONAL DATA LMP: ?04-26-07 CLINICAL HIST LIQUID BASED PAP CERVICAL SPECIMEN ADEQUACY: ?? Satisfactory. ENDOCERVICAL CELLS: ??Present. Specimen (Source) Anatomical Collection Method Collection Time Re ceived Time Location / / Volume Laterality 05/17/2007 9:07 AM CDT Lyn Cardoso APRN, SLOT TAG INSERTER LAB_1 Performing Organization Address City/State/ZIP Code Phon e Number HP CONVERSION documented in this encounter Visit Diagnoses Not on filedocumented in this encounter Care Teams Occupational Therapist Assistant Relationship Specialty Start Date End Date Kaelyn Lr PA-C PCP - General 05/18/10 06/05/13 [address] [facility] [address] [place] [address] documented as of this encounter
--- OUTSIDE RECORDS SUMMARY | 2021-11-01 11:32 | XMS_ITS | Encounter Summary ---
:1990 Author Organization [facility] Address [address] [place] [address] Care Team Providers Name Role Phone Kaelyn Lr PA-C Primary Care Provider Encounter Details Date Type Department Care Team Description 08/07/2008 Office Visit Lyn Abdul, Obstetrics/Gynecolog y MORIS, GRAB JACK WORKER [address] [address] [place] [address] [employer], [place] [phone] [address] (Wo rk) Social History Tobacco Use Types Packs/Day Years Used Date Smoking Tobacco: Never Assessed Sex Assigned at Date Recorded Not on file documented as of this encounter Last Filed Vital Signs Vital Sign Reading Time Taken Comments Blood Pressure 120/80 08/07/2008 11:02 AM CDT Pulse - - Temperature - - Respiratory Rate - - Oxygen Saturation - - Inhaled Oxygen Concentration - - Weight 78 kg (171 lb 15.7 oz) 08/07/2008 11:02 AM C: 78 .0kg CDT Height 168.9 cm (5' 6.5) 08/07/2008 11:02 AM C: 168.9c m CDT Body Mass Index 27.34 08/07/2008 11:02 AM CDT documented in this encounter Progress Notes Lyn Cardoso, MORIS, GRAB JACK WORKER - 08/07/2008 12:01 AM CDT Progress Notes signed by FERMÍN Bueno at 08/10/08 1004 Author: FERMÍN Bueno Service: (none) Author Type: Nurse Practitioner Filed: 06/07/10 1605 Note Time: 08/07/08 0001 Status: Signed Machine Setup Operator: FERMÍN Bueno (Nurse Practitioner) NAME: DESTINI TORREZ MR#: [id number] ACCT: [id number] VISIT: [id number] DICTATING CLINICIAN: FERMÍN Bueno CONFIRM #: [id number] LOC: 512 CLINIC PROGRESS NOTE DATE OF VISIT: 08/07/2008 SUBJECTIVE: : 1990. The patient is a 18-year-old white female, nulliparous, who presents to clinic today for a routine Pap and pelvic. The patient denies any problems at this time. She would like a refill of her Zovia 28 days. CURRENT MEDICATIONS: Zovia. ADR/ALLERGIES: ALLERGIES TO PHENERGAN. NO LATEX ALLERGIES ARE NOTED. IMMUNIZATIONS: Up to date. The patient denies any tobacco, alcohol or street drug use. Caffeine is just very minimal. Exercises 2 times a week with walking. She does not do SBES. She does wear a seatbelt at all times. MEDICAL HISTORY: Negative. SURGICAL HISTORY: Includes sinus surgery and a mole removed. Menarche at age 12. Menses every 28 days, lasting 3-4 days. Patient denies any abnormal Paps, YASMINE, STD, PID, or IUD use. FAMILY HEALTH HISTORY: Mother is living; she does have hypertension, high cholesterol and depression. Father is living and well. She has 1 brother, 1 sister living and well. Maternal grandmother has asthma, heart disease, high blood pressure and thyroid disease. Maternal grandfather, type 2 diabetes, high blood pressure and high cholesterol. Paternal grandmother has heart disease, thyroid disease. Paternal grandfather, no history is noted. REVIEW OF SYSTEMS: The remainder of the complete review of systems was otherwise found to be negative. OBJECTIVE: VS: BP: 120/80, left arm, standard cuff. P: 82. R: 18. Ht: 67 in. Wt: 172. BMI: 27.3. PHYSICAL EXAMINATION: CONSTITUTIONAL: Blood pressure, height, and weight done by nursing staff. The patient is a WD, WN female, alert and orientated x3. Appears to be in no acute distress. HEENT: Eyes: Sclerae clear. Pupils are equal. Mouth: Lip and gums appear normal. Teeth are in good repair. NECK: Supple, trachea midline, without cervical lymphadenopathy. Thyroid nontender and no palpable masses, symmetrical. RESPIRATORY: Lungs clear to auscultation. Respiration effortless. CARDIOVASCULAR: Heart with regular rate and without murmur. Legs without swelling and varicosities. BREASTS: Symmetrical, no dominant palpable masses. Without axillary lymphadenopathy. ABDOMEN/GI: Soft, without tenderness and no palpable masses. Without organomegaly. PELVIC: External genitalia is without lesions, redness or discharge. Urethral meatus is not enlarged. No inflammation noted. Vagina is pink and rugated. Just a scant amount of clear vaginal discharge noted. Cervix is firm, mobile and nontender. Uterus is small, involuted, ante, mobile and nontender. Adnexa were negative. No masses or tenderness noted. LYMPHATIC: Nodes in axillae, neck, and groin without masses. SKIN: Warm and dry to touch. Without lesions. PSYCHIATRIC: Oriented to time and space. Without agitation or depression. Discussed the above with patient. She did voice understanding. ASSESSMENT: Routine Pap and pelvic. OC refill. PLAN: Pap. Jovannia , 28-day, 3 months with 3 refills. Patient to return to clinic in 1 year's time or sooner if need be. Total time with patient was approximately 30 minutes. AJC:[id number] C: 08/08/08 12:28 CONFIRM #: [id number] documented in this encounter Plan of Treatment Not on filedocumented as of this encounter Visit Diagnoses Not on filedocumented in this encounter Care Teams Incident Response Analyst Relationship Specialty Start Date End Date Kaelyn Lr PA-C PCP - General 05/18/10 06/05/13 [address] [facility] [address] [place] [address] documented as of this encounter
--- OUTSIDE RECORDS SUMMARY | 2021-11-01 11:32 | XMS_ITS | Encounter Summary ---
:1990 Author Organization [facility] Address [address] [place] [address] Care Team Providers Name Role Phone Adeline Kaelyn Plata PA-C Primary Care Provider Encounter Details Date Type Department Care Team Description 08/18/2007 Office Visit [place] [facility] Laurie Hernandez APRN, [facility] [address] [address] [place] [address] [place] [address] [phone] (Wo rk) Social History Tobacco Use Types Packs/Day Years Used Date Smoking Tobacco: Never Assessed Sex Assigned at Date Recorded Not on file documented as of this encounter Last Filed Vital Signs Vital Sign Reading Time Taken Comments Blood Pressure 110/70 08/18/2007 1:46 PM CDT Pulse 80 08/18/2007 1:46 PM CDT Temperature - - Respiratory Rate - - Oxygen Saturation - - Inhaled Oxygen Concentration - - Weight 68 kg (149 lb 15.7 oz) 08/18/2007 1:46 PM CDT C: 68.0kg Height - - Body Mass Index - - documented in this encounter Progress Notes Laurie Hernandez APRN, BUSINESS CONTROL MANAGER - 08/18/2007 12:01 AM CDT Progress Notes signed by CABRERA Osuna at 08/29/07 0839 Author: CABRERA Osuna Service: (none) Author Type: (none) Filed: 06/07/10 0702 Note Time: 08/18/07 0001 Status: Signed Application Architect Manager: CABRERA Osuna (Nurse Practitioner) NAME: DESTINI TORREZ MR#: [id number] ACCT: [id number] VISIT: [id number] DICTATING CLINICIAN: CABRERA Osuna CONFIRM #: [id number] LOC: 506 CLINIC PROGRESS NOTE DATE OF VISIT: 08/18/2007 SUBJECTIVE: : 1990. An 17-year-old in clinic today with her mother. Two weeks ago she scraped her knee on some concrete, and she developed a lesion there that was open that she has been trying to keep clean and using Neosporin on, but she said it seems to be increasing in area, spreading and has a dhillon crusty-colored surface. She denies any fever, chilling. She said it is not increasing in pain. PAST MEDICAL HISTORY: No chronic illness. MEDICATIONS: Zovia. MEDICATION ALLERGIES: PROMETHAZINE. OBJECTIVE: VS: BP: 110/60. P: 80. Wt: 150. Very pleasant young lady, alert and oriented. SKIN: Warm, dry, non-diaphoretic. Examining the right knee there is an area of approximately 4 cm that has a slightly erythematous base, but with crusty-yellow surface appearance. There are some satellite lesions of little red papules, which have not yet become exudative. ASSESSMENT: Impetigo. PLAN: She is given Bactroban cream. She will cleanse with warm soapy water twice a day and use a thin application of the Bactroban following that. Asked her to use it in an area of at least an inch surroundings the outspread of the lesion. Advised to watch for any signs of cellulitis. LAE:[id number] C: 08/20/07 08:30 CONFIRM #: [id number] documented in this encounter Plan of Treatment Not on filedocumented as of this encounter Visit Diagnoses Not on filedocumented in this encounter Care Teams Control Supervisor Relationship Specialty Start Date End Date Kaelyn Lr PA-C PCP - General 05/18/10 06/05/13 [address] [facility] [address] [place] [address] documented as of this encounter
--- OUTSIDE RECORDS SUMMARY | 2021-11-01 11:32 | XMS_ITS | Encounter Summary ---
:1990 Author Organization [employer] Address [address] [place] [address] Care Team Providers Name Role Phone Adeline Kaelyn Plata PA-C Primary Care Provider Encounter Details Date Type Department Care Team Description 04/12/2007 Office Visit [facility] Meagan Zheng PA-C [address] [address] [place] [address] [phone] (Wo rk) Social History Tobacco Use Types Packs/Day Years Used Date Smoking Tobacco: Never Assessed Sex Assigned at Date Recorded Not on file documented as of this encounter Last Filed Vital Signs Vital Sign Reading Time Taken Comments Blood Pressure 120/82 04/12/2007 1:04 PM RECREATION DIRECTOR Pulse 84 04/12/2007 1:04 PM RECREATION DIRECTOR Temperature 37.7 ??C (99.9 ??F) 04/12/2007 1:04 PM RECREATION DIRECTOR C: 37 .7 C Respiratory Rate - - Oxygen Saturation - - Inhaled Oxygen Concentration - - Weight 68 kg (149 lb 15.7 oz) 04/12/2007 1:04 PM RECREATION DIRECTOR C: 68.0kg Height - - Body Mass Index - - documented in this encounter Progress Notes Meagan Gordon PA-C - 04/12/2007 12:01 AM CST Progress Notes signed by Meagan Gordon PA-C at 04/19/07 1437 Author: Meagan Gordon PA-C Service: (none) Author Type: Physician Teletypewriter Operator Filed: 06/07/10 0251 Note Time: 04/12/07 0001 Status: Signed Health Aide: Meagan Gordon PA-C (Physician Teletypewriter Operator) NAME: DESTINI TORREZ MR#: [id number] ACCT: [id number] VISIT: [id number] DICTATING CLINICIAN: MARYURI XIE JOB: [id number] LOC: 502 CLINIC PROGRESS NOTE DATE OF VISIT: 04/12/2007 SUBJECTIVE: Cristin is a 16-year-old female here with her mom. She is here today regarding a 2-day history of sore throat, cough, vomiting, and a 100 degree temperature. She has also had nasal congestion which started today. She is using Tylenol which seems to help. Feels like she does not have chills like she did in the past, but the throat seems to hurt a little bit more. She had 2 episodes of vomiting. No episodes of diarrhea. A little bit of abdominal pain preceding the vomiting, but this resolved after vomiting. She in general feels somewhat achy. Sometimes even feels some aching and tingling involving the thighs, left and right sides. She was seen in urgent care a couple of weeks ago with a sore throat. Rapid strep and mono tests were negative, and white count was slightly elevated at 10,000. Patient feels that she got completely better, and this seems to be a totally new infection. PAST MEDICAL HISTORY: Reviewed and updated in the health profile in [employer] today. MEDICATIONS: Reviewed and updated in the health profile in [employer] today. ADR/ALLERGIES REVIEWED AND UPDATED IN THE HEALTH PROFILE IN [employer] TODAY. OBJECTIVE: VS: BP: 120/82. T: 99.8. P: 84. Wt: 150. CONSTITUTIONAL: Sitting comfortably. Appears well. Eyes: Sclerae and conjunctivae are clear. ENT: TMs nonerythematous. Nasal mucosa with clear drainage. No sinus tenderness. Oropharynx reveals tonsils which are somewhat enlarged but no exudates. Oropharynx is minimally erythematous. NECK: No cervical lymphadenopathy noted. LUNGS: Clear to auscultation. HEART: Regular rate and rhythm. ABDOMEN: Soft, nontender, nondistended. DIAGNOSTICS: A rapid strep test is negative. Monospot is negative. CBC shows a WBC count of 5.9, normal differential. ASSESSMENT: 1. Viral syndrome. PLAN: Treat symptomatically. She will use an czzw-txe-nalbycl throat spray and continue Tylenol. Also recommended Mucinex to help thin out her secretions. Also gave prescription for Phenergan to help with the nausea. Watch symptoms closely. If they worsen, persist, or change, follow up. They agree. AMS:[id number] C: 04/13/07 13:02 DOCUMENT: [id number] EATION DIRECTOR documented in this encounter Plan of Treatment Not on filedocumented as of this encounter Visit Diagnoses Not on filedocumented in this encounter Care Teams Recreation Aide Relationship Specialty Start Date End Date Kaelyn Lr PA-C PCP - General 05/18/10 06/05/13 [address] [facility] [address] [place] [address] documented as of this encounter
--- OUTSIDE RECORDS SUMMARY | 2021-11-01 11:32 | XMS_ITS | Encounter Summary ---
:1990 Author Organization [employer] Address [address] [place] [address] Care Team Providers Name Role Phone Kaelyn Lr PA-C Primary Care Provider Encounter Details Date Type Department Care Team Description 03/02/2008 PN Conversion Only [place] [facility] N Kaelyn Lr PA-C [address] [address] [place] [address] [address] [place], [place] [address] Social History Tobacco Use Types Packs/Day Years Used Date Smoking Tobacco: Never Assessed Sex Assigned at Date Recorded Not on file documented as of this encounter Plan of Treatment Not on filedocumented as of this encounter Procedures Procedure Name Priority Date/Time Associated Comments Diagnosis ELECTROLYTES (NA, K, Routine 03/02/2008 3:33 PM R esults for this CL, BICARB) MANAGER CORPORATE procedure are i n the results section. GLUCOSE Routine 03/02/2008 3:33 PM Results f or this MANAGER CORPORATE procedure are i n the results section. HEMOGLOBIN A1C, RAPID Routine 03/02/2008 3:33 PM Results for this MANAGER CORPORATE procedure are i n the results section. URINALYSIS Routine 03/02/2008 3:04 PM Results f or this ROUTINE(MICRO IF POS) MANAGER CORPORATE proced ure are in the results section. URINALYSIS Routine 03/02/2008 3:04 PM Results f or this MICROSCOPIC MANAGER CORPORATE procedure are i n the results section. URINE CULTURE Routine 03/02/2008 3:04 PM Results for this MANAGER CORPORATE procedure are i n the results section. documented in this encounter Results Glucose (03/02/2008 3:33 PM MANAGER CORPORATE) athologist Signature Lab Glucose 72 60 - 100 HP CONVERSION mg/dL Specimen (Source) Anatomical Collection Method Collection Time Re ceived Time Location / / Volume Laterality 03/02/2008 3:33 PM MANAGER CORPORATE Kaelyn Lr PA-C LAB_1 Performing Organization Address [facility] Phon e Number HP CONVERSION Electrolytes (NA, K, CL, Bicarb) (03/02/2008 3:33 PM MANAGER CORPORATE) athologist [facility] Sodium 139 137 - 147 HP CONVERSION mEq/L Potassium 3.9 3.5 - 5.2 HP CONVERSION mEq/L Chloride 110 98 - 110 HP CONVERSION mEq/L Bicarbonate 31 23 - 33 HP CONVERSION mmol/L Specimen (Source) Anatomical Collection Method Collection Time Re ceived Time Location / / Volume Laterality 03/02/2008 3:33 PM MANAGER CORPORATE Kaelyn Lr PA-C LAB_1 Performing Organization Address [facility] Phon e Number HP CONVERSION Hemoglobin A1C, Rapid (03/02/2008 3:33 PM MANAGER CORPORATE) athologist Signature Hemoglobin A1C 5.0 <6.0 % HP CONVERSION Rapid Specimen (Source) Anatomical Collection Method Collection Time Re ceived Time Location / / Volume Laterality 03/02/2008 3:33 PM MANAGER CORPORATE Kaelyn Lr PA-C LAB_1 Performing Organization Address [facility] Phon e Number HP CONVERSION (ABNORMAL) Urine Culture (03/02/2008 3:04 PM MANAGER CORPORATE) [facility] Method Time Signature Urine Culture SEE TEXT HP CONVERSION (A) Comment: Patient: TORREZDESTINI Culture, Urine ?Collected: ?150 Source: Clean Ca ?Processed: ?150 ? 1V, SENS Final Report ------ ?100 10-50,000 CFU/mL Staphylococcus coagulas e negative Susceptibility Testing C NEGA ??YVONNE INTERP: ?S ??GENTAMICIN , NITROFURANTOIN, TRIMETH-SULFA, VANCOMYCIN ? R ??IMIPE NEM, OXACILLIN, PENICILLIN Specimen (Source) Anatomical Collection Method Collection Time Re ceived Time Location / / Volume Laterality 03/02/2008 3:04 PM MANAGER CORPORATE Kaelyn Lr PA-C LAB_1 Performing Organization Address City/State/ZIP Code Phon e Number HP CONVERSION (ABNORMAL) Urinalysis Routine(Micro If Pos) (03/02/2008 3:04 PM MANAGER CORPORATE) [facility] gist Method Time Signature Turbidity Clear No normal HP CONVERSION range pH Urine 5.0 4.5 - 7.5 HP CONVERSION Protein Urine 100mg/dL (A) Neg-Trac HP CONVERSION Glucose, 250mg/dL (A) Neg-Trac HP CONVERSION Qualitative U Ketones Trace (A) Negative HP CONVERSION U BILI Negative Negative HP CONVERSION Blood Urine Negative Negative HP CONVERSION Nitrite Urine Positive (A) Negative HP CONVERSION Leukocyte Negative Negative HP CONVERSION Esterase Urine Comment: FALSE POSITIVE DIPSTICK RESULTS CAN OCCU R DUE TO URINE COLOR AND/OR PATIENT MEDICATION. Urobilinogen Urine >8 EU/dL (A) 0.2 - 1.0 HP CONVE RSION U Specific [place] >=1.030 1.005 - 25 HP CONVERS ION Specimen (Source) Anatomical Collection Method Collection Time Re ceived Time Location / / Volume Laterality 03/02/2008 3:04 PM MANAGER CORPORATE Kaelyn Lr PA-C LAB_1 Performing Organization Address City/[facility]/ZIP [facility] Phon e Number HP CONVERSION (ABNORMAL) Urinalysis Microscopic (03/02/2008 3:04 PM MANAGER CORPORATE) [facility] gist Method Time Signature White Blood 3-4/HPF 0 - 3 HP CONVERSION Cells Urine Red Blood 3-4/HPF (A) 0 - 2 HP CONVERSION Cells Urine Bacteria Urine Moderate (A) None HP CONVERSIO N Urine Mucus Moderate None HP CONVERSION Epithelial Few Few /HPF HP CONVERSION Cells Specimen (Source) Anatomical Collection Method Collection Time Re ceived Time Location / / Volume Laterality 03/02/2008 3:04 PM MANAGER CORPORATE Kaelyn Lr PA-C LAB_1 Performing Organization Address [facility] Phon e Number HP CONVERSION documented in this encounter Visit Diagnoses Not on filedocumented in this encounter Care Teams Computer Salesperson Retail Relationship Specialty Start Date End Date Kaelyn Lr PA-C PCP - General 05/18/10 06/05/13 [address] [facility] [address] [place] [address] documented as of this encounter
--- OUTSIDE RECORDS SUMMARY | 2021-11-01 11:32 | XMS_ITS | Encounter Summary ---
:1990 Author Organization [facility] Address [address] [place] [address] Care Team Providers Name Role Phone AdelineKaelyn Boni CHARLES Primary Care Provider Encounter Details Date Type Department Care Team Description 10/15/2008 PN Conversion Only QU[facility] AND FEATHER DRILLER [address] Lu Rivas MD [address] [place] [phone] (Wo rk) Social History Tobacco Use Types Packs/Day Years Used Date Smoking Tobacco: Never Assessed Sex Assigned at Date Recorded Not on file documented as of this encounter Plan of Treatment Not on filedocumented as of this encounter Procedures Procedure Name Priority Date/Time Associated Diagnosis Comme nts SURGICAL ROMINA SANON Routine 10/15/2008 10:08 AM R esults for this NICOLLET CDT procedure are i n the results section. documented in this encounter Results Pathology Report (10/15/2008 10:08 AM CDT) [facility] Method Time Signature Surgical SEE TEXT No normal HP CONVERSION Pathology range Comment: Patient: DESTINI TORREZ ?S URGICAL PATHOLOGY REPORT Pathology # ??[id number] ?Date Obtained: ? Date Received: DIAGNOSIS: ?Skin, right breast, biopsy: ?- Compound nevus with mild junctio nal atypia and chronic inflammation, ?completely excised in the plane s examined. COMMENT: Colleagues NICKY, RPW and MDM con cur. ?Maryam Nino M.D. ?(electronic signature) RWS/RWS/RWS Date of Report: 10/17/08 Pathology # ??[id number] ?Date Obtained: ? Date Received: ORGAN/TISSUE SITE: ?Right breast GROSS DESCRIPTION: ?Received in formalin is a 0.6 x 0. 6 x 0.5 cm irregular lopez pink ellipse of ?skin. ??The surface of the skin is hair-bearing and displays a 0.4 cm ?circular darkly pigmented lesion. ??The skin is inked, trisected and ?entirely submitted in cassette 967 2. MJL/amf MICROSCOPIC DESCRIPTION: ?The microscopic examination substa ntiates the diagnosis cited. Specimen (Source) Anatomical Collection Method Collection Time Re ceived Time Location / / Volume Laterality 10/15/2008 10:08 AM CDT Lu Rivas MD LAB_1 Performing Organization Address City/State/ZIP Code Phon e Number HP CONVERSION documented in this encounter Visit Diagnoses Not on filedocumented in this encounter Care Teams Second Ride Fare Collector Relationship Specialty Start Date End Date Kaelyn Lr PA-C PCP - General 05/18/10 06/05/13 [address] [facility] [address] [place], [place] [phone] documented as of this encounter
--- OUTSIDE RECORDS SUMMARY | 2021-11-01 11:32 | XMS_ITS | Encounter Summary ---
:1990 Author Organization [facility] Address [address] [place] [address] Care Team Providers Name Role Phone Adeline Kaelyn Plata PA-C Primary Care Provider Encounter Details Date Type Department Care Team Description 05/10/2009 PN Conversion Only [place] [facility] N Karol Mccoy, [address] [place] [address] Social History Tobacco Use Types Packs/Day Years Used Date Smoking Tobacco: Never Assessed Sex Assigned at Date Recorded Not on file documented as of this encounter Plan of Treatment Not on filedocumented as of this encounter Procedures Procedure Name Priority Date/Time Associated Comments Diagnosis SEXUALLY TRANSMITTED Routine 05/10/2009 4:56 PM R esults for this DISEASE PROBE CDT procedure are in the results section. documented in this encounter Results Sexually Transmitted Disease Probe (05/10/2009 4:56 PM CDT) [facility] Method Time Signature Sexually SEE TEXT HP CONVERSION Transmitted Disease Probe Comment: STDPR Sexually Transmitted Disease DNA Probe ? ORDERED BY: KAROL MCCOY SOURCE: Endocervical for molecular testi ng COLLECTED: ??05/10/09 16:56 ? PLATED: ? 05/10/09 16:56 Chlamydia trachomatis DNA Probe ?FINAL ? 05/13/09 13:10 Chlamydia trachomatis negative by DNA a mplification The amplified DNA assay is cleared by [facility] for non-medicolegal diagnostic testing in [facility] adult population. Neisseria gonorrhea DNA Probe ?FINAL ? 05/13/09 13:10 Neisseria gonorrhea negative by DNA amp lification. The amplified DNA assay is cleared by [facility] for non-medicolegal diagnostic testing in [facility] adult population. Specimen (Source) Anatomical Collection Method Collection Time Re ceived Time Location / / Volume Laterality 05/10/2009 4:56 PM CDT Karol Mccoy APRN, [facility] LAB_1 Performing Organization Address City/State/ZIP Code Phon e Number HP CONVERSION documented in this encounter Visit Diagnoses Not on filedocumented in this encounter Care Teams Rn Cardiac Rehab Relationship Specialty Start Date End Date Kaelyn Lr PA-C PCP - General 05/18/10 06/05/13 [address] [facility] [address] [place] [address] documented as of this encounter
--- OUTSIDE RECORDS SUMMARY | 2021-11-01 11:32 | XMS_ITS | Encounter Summary ---
:1990 Author Organization [facility] Address [address] [place] [address] Care Team Providers Name Role Phone Adeline Kaelyn Plata PA-C Primary Care Provider Encounter Details Date Type Department Care Team Description 09/27/2009 PN Conversion Only [place] CON[facility] Lyn Edge [address] [facility] [address], FIELD SALES TRAINER, WIRELESS [place] [address] [facility] [place] [address] (Wo rk) Social History Tobacco Use Types Packs/Day Years Used Date Smoking Tobacco: Never Assessed Sex Assigned at Date Recorded Not on file documented as of this encounter Plan of Treatment Not on filedocumented as of this encounter Procedures Procedure Name Priority Date/Time Associated Comments Diagnosis ANATOMICAL PATH Routine 09/27/2009 10:09 AM Resul ts for this LIQUID BASED CDT procedure are i n the results section. HPV REFLEX Routine 09/27/2009 10:09 AM Results for this CDT procedure are i n the results section. documented in this encounter Results (ABNORMAL) HPV Reflex (09/27/2009 10:09 AM CDT) P athologist Signature ASCUS PAP Pap: No normal HP CONVERSION Interp range Comment: Pap result: Atypical squamous cells of u ndetermined significance (ASCUS). HPV Positive (A) No normal range HP CONVERSI ON Comment: POSITIVE for high risk HPV Reference Range: Negative Human Papilloma virus(HPV) High Risk. A positive high-risk HPV test result ind icates that the patient may be infected with one or more of the following HPV genotypes: 16, 18, 31, 33, ??35, 39, 45, 51, 52, 56 , 58, 59, and 68, which are associated with cervical cancer and its precursor lesions. However, cross-reactions with other milan types may occur. Results should be correlated with cytolo gic/histologic findings. This test is performed using DSI MET-TECH rid Capture 2 methodology. For [employer]ocyte specimens: ??The p erformance characteristics of this test were validated by [facility]. The U.S. Food and Drug Administration (F DA) has not approved this test. ??The results are not intende d to be used as the sole means for clinical diagnosis or patient management decisions. [facility] is authorized under C linical Laboratory Improvement Amendments (CLIA) to perform high-complexity testing. HPV Source ACTUARIAL TECHNICIAN-Liquid No normal range HP CONVERSIO N HPV Interp Interp: No normal range HP CONVERSION Comment: Clinical studies have shown that 20-30% of women with ASC-US Pap tests and also positive HPV DNA are found to have high-grade squamous intraepithelial lesi ons (CIN2 or greater) within 2 years. It is generally recommen ded that these women undergo colposcopic examination. Specimen (Source) Anatomical Collection Method Collection Time Re ceived Time Location / / Volume Laterality 09/27/2009 10:09 AM CDT Lyn Cardoso APRN, WIRELESS COMMUNICATIONS ENGINEER LAB_1 Performing Organization Address City/State/ZIP Code Phon e Number HP CONVERSION Pap Smear (09/27/2009 10:09 AM CDT) P athologist Signature Pap Smear SEE TEXT No normal HP CONVERSION range Comment: Final GYNECOLOGICAL CYTOLOGY REPORT Pathology #: [id number] ?Date Obta ined: 09/27/2009 ? Date Received: 09/30/2009 INTERPRETATION/RESULTS: Atypical squamous cells of undetermined significance. Reflex HPV testing has been ordered, and will be pe rformed and reported separately. SPECIMEN ADEQUACY: Satisfactory for Evaluation. ??No endoce rvical cells/transformation zone component present. Verified on 10/03/2009 ??by JONATHAN Longoria MD (electronic signature) CLINICAL NOTES: ?LMP: 09/11/2009. SPECIMEN TYPE: ? CERVICAL WITH REFLEX TO HPV IF CUS ?* End of Report Specimen (Source) Anatomical Collection Method Collection Time Re ceived Time Location / / Volume Laterality 09/27/2009 10:09 AM CDT Lyn Cardoso APRN, WIRELESS COMMUNICATIONS ENGINEER LAB_1 Performing Organization Address City/State/ZIP Code Phon e Number HP CONVERSION documented in this encounter Visit Diagnoses Not on filedocumented in this encounter Care Teams Utility Tech Relationship Specialty Start Date End Date Kaelyn Lr PAAngel LuisC PCP - General 05/18/10 06/05/13 [address] [facility] [address] [place] [address] documented as of this encounter
--- OUTSIDE RECORDS SUMMARY | 2021-11-01 11:32 | XMS_ITS | Encounter Summary ---
:1990 Author Organization [facility] Address [address] [place] [address] Care Team Providers Name Role Phone Adeline Kaelyn Plata PA-C Primary Care Provider Encounter Details Date Type Department Care Team Description 12/27/2009 Procedure Visit Marcos Soni MD Obstetrics/Gynecolog y [address] [facility] [address] [facility] [address] [place] [address] [place] [address] [phone] (Wo rk) Social History Tobacco Use Types Packs/Day Years Used Date Smoking Tobacco: Never Assessed Sex Assigned at Date Recorded Not on file documented as of this encounter Last Filed Vital Signs Vital Sign Reading Time Taken Comments Blood Pressure 130/80 12/27/2009 8:12 AM CREDIT COLLECTIONS SPECIALIST Pulse - - Temperature - - Respiratory Rate - - Oxygen Saturation - - Inhaled Oxygen Concentration - - Weight - - Height - - Body Mass Index - - documented in this encounter Progress Notes Marcos Allison - 12/27/2009 12:01 AM CST SUBJECTIVE: CC: Abnormal Pap test Patient is a 19-year-old white woman 0, LMP 11/27/09, who had an annual exam and Pap test with Gwendolyn Cardoso NP on 09/27/09. The Pap showed ASCUS with positive high-risk HPV subtypes present. She was referred to me for planned colposcopy. She has no other complaints. She presents today with her mother. OBJECTIVE: Vital Signs : Reviewed; See Flowsheet Charting in LastWord. General: Well-developed, well-nourished, white woman in no acute distress. The remainder of the exam was deferred. ASSESSMENT: 1. 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 I discussed with the patient and her mother the full recommendations as set forth by ACOG and the ASC CP. Based on the recommendations for adolescents which are defined as women aged 20 and younger, Ascus on Pap test, regardless of HPV positivity, does not require colposcopy at the initial Pap. Furthermore, women aged 20 and younger no longer should be receiving Pap testing at all. I explained in detail the rationale as set forth by these 2 organizations for this major change and Pap test protocol. I reassured them that the patient is not going to develop cervical cancer, and for that matter unlikely to develop a high-grade lesion in the intervening time between her most recent Pap and subsequent followup. Therefore she does not need a colposcopy today. 2. The patient should followup in one year for another Pap test. At that time, she will be 20 years old. Therefore, if the Pap test is abnormal at all including Ascus, regardless of HPV status, she will need a colposcopy at that time. If that Pap test is completely normal, then she should have one more Pap test one year later. If that one is also normal, then she should be able to go to Pap testing every 2 years. 3. I spent 20 minutes counseling time out of a total visit time of 25 minutes in direct [id number] counseling and discussion of the above issues with the patient. CC: Gwendolyn Cardoso NP *SH~DNS~SOAP IT COLLECTIONS SPECIALIST documented in this encounter Plan of Treatment Not on filedocumented as of this encounter Visit Diagnoses Not on filedocumented in this encounter Care Teams Personal Lines Account Manager Relationship Specialty Start Date End Date Kaelyn Lr PA-C PCP - General 05/18/10 06/05/13 [address] [facility] [address] [place] [address] documented as of this encounter
--- OUTSIDE RECORDS SUMMARY | 2021-11-01 11:32 | XMS_ITS | Encounter Summary ---
:1990 Author Organization [employer] Address [address] [place] [address] Care Team Providers Name Role Phone Adeline Kaelyn Plata PA-C Primary Care Provider Reason for Visit Reason Comments Other Encounter Details Date Type Department Care Team Description 11/08/2009 Telephone Pedro Abdul, Other Obstetrics/Gynecolog y DIVIDEND DEPOSIT ENTRY CLERK, CERTIFIED TEACHER ASSISTANT [address] [place] [address] [place] [phone] (Wo rk) Social History Tobacco Use Types Packs/Day Years Used Date Smoking Tobacco: Never Assessed Sex Assigned at Date Recorded Not on file documented as of this encounter Progress Notes Center, Message - 11/08/2009 8:14 AM CDT Phone Note filed by Fazland at 06/07/101925 Author: Fazland Service: (none) Author Type: (none) Filed: 06/07/101925 Note Time: 11/08/09813 Status: Signed Security Guard: Fazland (Resource) Non -Symptom Message from Front Line Caller Name/Relationship:Destini Primary Coal Crusher Operator:Devaughn Message:Pt is returning phone call to Devaughn. Pt would like Devaughn to call her back today after 2:00 pm. Senior Ui Designer:Pt Best call back number:[phone] Is it OK to leave a confidential message on this voicemail?Y *ECODE~PNMSG2 Created on 08Nov2009 8:14am by DEBRA LUX On 08Nov2009 3:42pm KARIN PERRY wrote: Above note completed - see Gwendolyn's note in system, added to that note. Acknowledged by PEDRO ALLEN on 4:30pm STOS BRAKE LINING FINISHER HELPER documented in this encounter Plan of Treatment Not on filedocumented as of this encounter Visit Diagnoses Not on filedocumented in this encounter Care Teams Trackman Relationship Specialty Start Date End Date Kaelyn Lr PA-C PCP - General 05/18/10 06/05/13 [address] [facility] [address] [place] [address] documented as of this encounter
--- OUTSIDE RECORDS SUMMARY | 2021-11-01 11:32 | XMS_ITS | Encounter Summary ---
:1990 Author Organization [employer] Address [address] [place] [address] Care Team Providers Name Role Phone Adeline Kaelyn Plata PA-C Primary Care Provider Reason for Visit Reason Comments Other Encounter Details Date Type Department Care Team Description 09/11/2009 Telephone Shana Narayan RN Other Obstetrics/Gynecolog y [address] [place] [address] Social History Tobacco Use Types Packs/Day Years Used Date Smoking Tobacco: Never Assessed Sex Assigned at Date Recorded Not on file documented as of this encounter Progress Notes Shana Biggs RN - 09/11/2009 10:36 AM CDT Phone Note filed by Shana Biggs RN at 06/07/10 3981 Author: Shana Biggs RN Service: (none) Author Type: Registered Nurse Filed: 06/07/10 1437 Note Time: 09/11/09 1036 Status: Signed Surveyor Geodetic: Shana Biggs RN (Registered Nurse) Pt.called. Wants to have a Mirena inserted. Discussed need to have it done while she is having her period. She is unable to come down during her period. Lives in [place], going to school. Pt. decided to just make a Well exam with Gwendolyn and will discuss her options at that time. Appt. made for 09-27-09. Created on 11Sep2009 10:36am by SHANA BIGGS F EDITOR documented in this encounter Plan of Treatment Not on filedocumented as of this encounter Visit Diagnoses Not on filedocumented in this encounter Care Teams Environmental Program Manager Relationship Specialty Start Date End Date Kaelyn Lr PA-C PCP - General 05/18/10 06/05/13 [address] [facility] [address] [place] [address] documented as of this encounter
--- OUTSIDE RECORDS SUMMARY | 2021-11-01 11:32 | XMS_ITS | Encounter Summary ---
:1990 [facility] Address [address] [place] [address] Care Team Providers Name Role Phone AdelineEverettmallorie Plata PA-C Primary Care Provider Encounter Details Date Type Department Care Team Description 10/15/2008 Office Visit [facility] [address] Lu Rivas MD Plastic Surgery [address] [place] [id number] [phone] Social History Tobacco Use Types Packs/Day Years Used Date Smoking Tobacco: Never Assessed Sex Assigned at Date Recorded Not on file documented as of this encounter Progress Notes Lu Rivas MD - 10/15/2008 12:01 AM CDT Progress Notes signed by Lu Rivas MD at 10/17/08 0934 Author: Lu Rivas MD Service: (none) Author Type: Physician Filed: 06/07/101750 Note Time: 10/15/08 0001 Status: Signed Gravel Screener: Lu Rivas MD (Physician) NAME: DESTINI TORREZ MR#: [id number] ACCT: [id number] VISIT: [id number] DICTATING CLINICIAN: LU RIVAS MD CONFIRM #: [id number] LOC: 458 CLINIC PROGRESS NOTE DATE OF VISIT: 10/15/2008 SUBJECTIVE: Destini is here with her mom. I have taken care of Destini in the past for removal of other nevi. This is a new area of concern. She was seen for this on 09/06/08 with this nevus, which is 8 mm in size that had begun to change, to get a darker center component and a perimeter that was bridge gang worker. This is new. The mole has been present for some time. It is changing in the color that was concerning. It was felt to be an atypical nevus, and was recommended that it be biopsied. Because of the location she wished to be seen here. She has a history of dysplastic nevi. I saw her last in 2000. OBJECTIVE: On exam today, the mole is 8 mm in size, located medial right breast. It has a fried egg appearance with a very dark, slightly raised center component with a rim of bridge gang worker brown surrounding it. It does have an atypical appearance clinically. ASSESSMENT: Atypical appearing nevus, medial chest. PLAN: Discussed with both Destini and her mom that I would agree that biopsy of this area is indicated. Destini is leaving tomorrow for school and would really like to have this addressed before she leaves. It has been concerning her all summer. She will be back next Wednesday and can return to the office for wound check. We discussed that this area has a tendency for hypertrophic scarring. Will try to minimize the length as much as possible, but it will extend out of the confines of the nevus. We discussed the risks and benefits. They wished to proceed. The area was marked for excision with a 2 mm rim of surrounding normal tissue. Total 1.2 cm was marked to follow the relaxed skin tension lines. Injected with 1% lidocaine, 1:100,000 epinephrine. Excision was performed circularly around the nevus and then closed in the orientation most favored by the wound, slightly elongated, total length 1.4 cm. Closure with undermining and layered repair. Steri-Strips were applied, was closed with 5-0 Monocryl. She will return next week, but does have suture management, and scar management techniques. We did discuss I think it is very important for her to do the scar management technique to try to minimize hypertrophy and the risk of keloidal formation. She gave us a phone number to contact her with the pathology report. JUVENTINO:[id number] C: 10/16/08 13:05 CONFIRM #: [id number] documented in this encounter Plan of Treatment Not on filedocumented as of this encounter Visit Diagnoses Not on filedocumented in this encounter Care Teams Tie Mill Operator Relationship Specialty Start Date End Date Kaelyn Lr PA-C PCP - General 05/18/10 06/05/13 [address] [facility] [address] [place] [address] documented as of this encounter
--- OUTSIDE RECORDS SUMMARY | 2021-11-01 11:32 | XMS_ITS | Encounter Summary ---
:1990 [facility] Address [address] [place] [address] Care Team Providers Name Role Phone Adeline Kaelyn Plata PA-C Primary Care Provider Reason for Visit Reason Comments Other Encounter Details Date Type Department Care Team Description 12/04/2008 Telephone [facility], Message Other [address] [place], [place] [phone] Social History Tobacco Use Types Packs/Day Years Used Date Smoking Tobacco: Never Assessed Sex Assigned at Date Recorded Not on file documented as of this encounter Progress Notes Center, Message - 12/04/2008 3:24 PM CDT Phone Note filed by EMBI at 06/06/10 3652 Author: EMBI Service: (none) Author Type: (none) Filed: 06/06/10 1531 Note Time: 12/04/08 1524 Status: Signed Director Of Early Childhood: EMBI (Resource) Front Line Sx Call Caller Name/Relationship:Jody/Mom Primary Facepiece Line Supervisor:Love Symptom or request?flu sx Is appointment scheduled & when?n Director Of Search Engine Marketing:Jody Best call back number:[phone] Is it OK to leave a confidential message on this voicemail?y *ECODE~[email or web address] Created on 04Dec2008 3:24pm by CRISTINA ISABEL On 04Dec2008 3:34pm KARIN ZUNIGA wrote: CLINICIAN FOLLOW-UP: none IMPRESSION: Influenza. SYMPTOMS: Mom calling. Pt. goes to school in [place], was diagnosed with the flu, no swab done per mom. No tamiflu given, was told to call back if worsens. Mom said them goes up to 104 since 12/02, does come down with Tylenol. Has had a cough, runny nose, aches, headache, vomiting. Mom is going to get her now and bring her home for the week. She was wondering about being tested for H1N1. Denies emergent symptoms Problem List: reviewed in electronic medical record. CARE ADVICE: REASSURANCE: For most healthy adults, influenza feels like a 'bad' cold. The dangers of influenza for normal, healthy people (under 65 years of age) are overrated. The treatment of influenza depends on your main symptoms. Generally, treatment is the same as for other viral respiratory infections (colds). Bed rest is unnecessary. TREATING THE SYMPTOMS OF FLU: FEVER, MUSCLE ACHES, and HEADACHE: For fever > 101 F (38.3 C), muscle aches, and headaches, take acetaminophen every 4-6 hours (Adults 650 mg) OR ibuprofen every 6-8 hours (Adults 400-600 mg). SORE THROAT: Use throat lozenges, hard candy or warm chicken broth. COUGH: Use cough drops. HYDRATE: Drink extra liquids. If the air in your home is dry, use a humidifier. NO ASPIRIN: Do not use aspirin for treatment of fever or pain (Reason: there is an association between influenza and Jeremiah Syndrome). CONTAGIOUSNESS: Influenza is spread by coughing and sneezing. Spread is rapid because the incubation period is only 24 to 36 hours and the virus is very contagious. You can return to work or school after the fever is gone and you feel well enough to participate in normal activities. EXPECTED COURSE: The fever lasts 2-3 days, the runny nose 5-10 days and the cough 2-3 weeks. CALL BACK IF: Fever lasts > 3 days. Runny nose lasts > 10 days. Cough lasts > 3 weeks. You become short of breath or worse. Advised to call back if any of the following occur: symptoms worsen or persist, any other questions or concerns. PLAN: HOME CARE Patient/Caller agrees with plan and denies additional questions. References Used: [employer] Adult Telephone Protocols--Influenza. Call Complete. *KYLIE~JOSEFA~INFLUENZA~ CTOR OF NEUROLOGY documented in this encounter Plan of Treatment Not on filedocumented as of this encounter Visit Diagnoses Not on filedocumented in this encounter Care Teams Institution Librarian Relationship Specialty Start Date End Date Kaelyn Lr PA-C PCP - General 05/18/10 06/05/13 [address] [facility] [address] [place] [address] documented as of this encounter
--- OUTSIDE RECORDS SUMMARY | 2021-11-01 11:32 | XMS_ITS | Encounter Summary ---
:1990 Author Organization [facility] Address [address] [place] [address] Care Team Providers Name Role Phone Kaelyn Lr PA-C Primary Care Provider Encounter Details Date Type Department Care Team Description 07/27/2007 Nursing Visit Ray Simon MD Obstetrics/Gynecolog y [address] [facility] [address] [place] [phone] (Wo rk) Social History Tobacco Use Types Packs/Day Years Used Date Smoking Tobacco: Never Assessed Sex Assigned at Date Recorded Not on file documented as of this encounter Plan of Treatment Not on filedocumented as of this encounter Visit Diagnoses Not on filedocumented in this encounter Care Teams Literacy Teacher Relationship Specialty Start Date End Date Kaelyn Lr PA-C PCP - General 05/18/10 06/05/13 [address] [facility] [address] [place] [address] documented as of this encounter
--- OUTSIDE RECORDS SUMMARY | 2021-11-01 11:32 | XMS_ITS | Encounter Summary ---
:1990 Author Organization [facility] Address [address] [place] [address] Care Team Providers Name Role Phone Kaelyn Lr PA-C Primary Care Provider Encounter Details Date Type Department Care Team Description 09/06/2008 Office Visit [facility] Kaelyn Garay PA-C [address] [facility] [address] [place] [address] [address] [place], [place] [address] Social History Tobacco Use Types Packs/Day Years Used Date Smoking Tobacco: Never Assessed Sex Assigned at Date Recorded Not on file documented as of this encounter Last Filed Vital Signs Vital Sign Reading Time Taken Comments Blood Pressure 114/72 09/06/2008 2:19 PM CDT Pulse 76 09/06/2008 2:19 PM CDT Temperature - - Respiratory Rate - - Oxygen Saturation - - Inhaled Oxygen Concentration - - Weight 77.6 kg (170 lb 15.8 oz) 09/06/2008 2:19 PM CDT C: 77.6kg Height - - Body Mass Index 27.18 08/07/2008 11:02 AM CDT documented in this encounter Progress Kaelyn Salomon - 09/06/2008 12:01 AM CDT Progress Notes signed by Kaelyn Lr PA-C at 09/07/08 6663 Author: Kaelyn Lr PA-C Service: (none) Author Type: (none) Filed: 06/07/10 1651 Note Time: 09/06/08 0001 Status: Signed Staff Weapons Officer: Kaelyn Lr PA-C (Resource) NAME: DESTINI TORREZ MR#: [id number] ACCT: [id number] VISIT: [id number] DICTATING CLINICIAN: Kaelyn Lr PA-C CONFIRM #: [id number] LOC: 502 CLINIC PROGRESS NOTE DATE OF VISIT: 09/06/2008 SUBJECTIVE: : 1990. HISTORY OF PRESENT ILLNESS: Destini has 2 concerns today. The first is that she would like a mole checked that is present on her right breast. She does have a history of dysplastic moles in the past. This one has been present for several years but she notes that the coloring in it has recently changed. Second concern today is regarding a recent diagnosis of infected sebaceous cyst on her abdomen. She was seen for this in our internal medicine clinic on 08/22/08. The patient states that although the initial cyst that she was seen for has resolved, a new one has developed. She has tried squeezing it to express pus but has been able unable to get anything out of it. She has simply caused it to bleed. It is tender but not acutely painful. Does have history of shaving her abdomen but is unaware of having nicked herself or caused injury to the skin. MEDICATIONS: Reviewed and updated in patient health profile. ADR/ALLERGIES: REVIEWED AND UPDATED IN PATIENT HEALTH PROFILE. OBJECTIVE: VS: BP: 114/72. P: 76. Wt: 171. GENERAL: Well-developed, well-nourished, pleasant female in no acute distress. SKIN: Examination of the patient's right breast reveals a nevus, the central portion of which is dark brown in color, surrounding area is light lopez. It measures 8 mm in width, it is flat, nonirritated in appearance. Examination of the skin on the patient's abdomen reveals a well-healed scar that overlies a palpable soft tissue mass that is nonfluctuant, measures approximately 1 cm in width. Just below that, about 3 cm inferior to the umbilicus, there is an erythematous lesion. Does have a central pore that has been scabbed over. It is not fluctuant. There is no purulent drainage. ASSESSMENT: 1. Atypical appearing nevus. 2. Inflamed sebaceous cyst. PLAN: Destini will need to return for biopsy of the nevus present on the right breast, given its atypical and changing appearance. I advised her of this, and she will schedule an appointment in the very near future. She states she'd like to have this done by a asp net c developer given her past history and I certainly think that is reasonable. I will provide a referral for such, if needed. Regarding the sore on her abdomen, prescription given today for Keflex given surrounding erythema. The patient was advised not to shave the abdomen until these sores resolve. In the event the cyst persists and she would like to have them surgically excised, she will contact me and I will arrange referral with General Surgery. MJL:[id number] C: 09/07/08 07:43 CONFIRM #: [id number] documented in this encounter Plan of Treatment Not on filedocumented as of this encounter Visit Diagnoses Not on filedocumented in this encounter Care Teams Board Operator Relationship Specialty Start Date End Date Kaelyn Lr PA-C PCP - General 05/18/10 06/05/13 [address] [facility] [address] [place] [address] documented as of this encounter
--- OUTSIDE RECORDS SUMMARY | 2021-11-01 11:32 | XMS_ITS | Encounter Summary ---
:1990 [facility] Address [address] [place] [address] Care Team Providers Name Role Phone Adeline Kaelyn Plata PA-C Primary Care Provider Encounter Details Date Type Department Care Team Description 09/27/2009 Office Visit Lyn Abdul, Obstetrics/Gynecolog y STATION MECHANIC HELPER, DEVELOPMENT EDUCATOR [address] [place] [address] [place], [place] [phone] (Wo rk) Social History Tobacco Use Types Packs/Day Years Used Date Smoking Tobacco: Never Assessed Sex Assigned at Date Recorded Not on file documented as of this encounter Last Filed Vital Signs Vital Sign Reading Time Taken Comments Blood Pressure 122/70 09/27/2009 8:45 AM CDT Pulse - - Temperature - - Respiratory Rate - - Oxygen Saturation - - Inhaled Oxygen Concentration - - Weight 87.5 kg (192 lb 15.9 oz) 09/27/2009 8:45 AM C: 8 7.5kg CDT Height 168.9 cm (5' 6.5) 09/27/2009 8:45 AM C: 168.9cm CDT Body Mass Index 30.68 09/27/2009 8:45 AM CDT documented in this encounter Progress Notes Lyn Cardoso, STATION MECHANIC HELPER, DEVELOPMENT EDUCATOR - 09/27/2009 12:01 AM CDT Procedures signed by FERMÍN Bueno at 09/27/09 0933 Author: FERMÍN Bueno Service: (none) Author Type: Nurse Practitioner Filed: 06/08/10 0231 Note Time: 09/27/09 0001 Status: Signed Bag Repairer: FERMÍN uBeno (Nurse Practitioner) Preventive Exam & Pelvic IMPRESSION: Routine preventive exam. Healthy female. Normal exam. Contraception surveillance. Increased vaginal discharge-negative wet prep SUBJECTIVE: 19 y/o patient presents for a routine preventive physical and pelvic exam. Patient has no symptomatic complaints or other concerns. Requests OCP refill. Pt is interested in the Mirena Past Medical History: With the exception of any notes below, patient's past history, family history, and social history were all reviewed and unchanged from the Electronic Medical Record note dated 08/07/2008. No chronic medical problems. Licensing Worker History: Patient has never been . Pap History: Last Pap smear: 08-07-08 Menstrual History: Date of LMP: 09-11-09 STD History: No history of STD's. Other Medical/Surgical History: No surgeries. Adverse Drug Reactions: Patient's Adverse Drug Reactions were reviewed today, and updated on the Health Profile of the Electronic Medical Record. Current Medications: Reviewed today and updated on Health Profile in the Electronic Medical Record. Family History: (First degree family members) With the exception of any notes below, patient's family history was reviewed and unchanged from the Electronic Medical Record note dated 08/07/2008. Social History: Refer to scanned patient form (URIAH). Employment status: Student. Marital Status: Significant other. Sexual History: Monogamous relationship. Habits Tobacco: None. Alcohol: Daily, one drink or less. Drug: Denies any drug use. Preventive Health Assessment: Preventive Health screen was reviewed and updated today in the Electronic Medical Record. Calcium intake adequate. Exercise adequate. Safe in relationship. Practices safe sex. Uses seatbelts. Tetanus immunization is up-to-date. Sun protection used. Review of Systems: With the exception of any items noted above, the remainder of complete ROS is negative. Online medical records were reviewed by me. OBJECTIVE: General: Patient alert, in NAD. HEENT: external canals, oropharynx normal. Neck: Supple, without thyromegaly or mass. Upper extremities: FROM with Fgood strength, no lesions or deformities. CV: RRR without murmurs, rubs or Ggallops. Resp: Clear to auscultation without crackles, wheezes or Hdistress. Abdomen: Soft, non-tender, without hepatosplenomegaly, masses, Ior hernias. Breasts: Nontender, without masses, nipple discharge, Jerythema, or axillary adenopathy. Pelvic: Normal external genitalia and urethra. [place], moist vaginal and cervical mucosa, without lesions. On bimanual exam, uterus is mobile, normal size, shape & consistency, with no uterine or adenexal masses appreciated. Large amount white vaginal discharge N Rectal: Not examined. Lymphatic: No neck, supraclavicular, axillary or Ogroin lymphadenopathy. Lower extremities: FROM, normal gait without edema, Plesions, or deformity. Skin: No lesions. Psychiatric: Alert & oriented with normal affect and insight, does not appear depressed or anxious. Pt declines chlaymdia ASSESSMENT: Routine preventive exam. Healthy female. Normal exam. Contraception surveillance. Increased vaginal discharge, Negative wet prep PLAN: Follow-up in 1 year. Pap smear. STD screen for GC/Chlamydia.-declined Wet/IBETH ( done by myself) Epi;mod, Clue:neg, WBC: neg,Trich; neg, Yeast:neg, Amine odor: neg, PH;4.5 We will mail lab results to patient. If results not received in the next month, patient instructed to call. Immunizations reviewed and updated in Health Profile of the Electronic Medical Record. Patient is up to date.Discussed with patient: Breast self-exam recommended. Recommended adequate calcium intake/osteoporosis prevention. Prevention or Hormone Therapy: Various methods of contraception, risks, and benefits of each discussed. OCP Pt desires Mirena,Pt will check will insurance. Rx given, Prescriptions provided, see OP Med. list on Health Profile in the Electronic Medical Record. Risks, benefits, and alternatives for use were discussed. *SH~PC~PEF ~[place] Note completed on: 09/27/2009 9:27 AM documented in this encounter Plan of Treatment Not on filedocumented as of this encounter Visit Diagnoses Not on filedocumented in this encounter Care Teams Assembler Dry Cell And Battery Relationship Specialty Start Date End Date Kaelyn Lr PA-C PCP - General 05/18/10 06/05/13 [id number] [facility] [address] [place] [address] documented as of this encounter
--- OUTSIDE RECORDS SUMMARY | 2021-11-01 11:32 | XMS_ITS | Encounter Summary ---
:1990 [facility] Address [address] [place] [address] Care Team Providers Name Role Phone Kaelyn Lr PA-C Primary Care Provider Encounter Details Date Type Department Care Team Description 11/18/2007 Nursing Visit [facility] Keny Wade MD [facility] [id number] [place] [address] [place] [address] [place] [address] [phone] Social History Tobacco Use Types Packs/Day Years Used Date Smoking Tobacco: Never Assessed Sex Assigned at Date Recorded Not on file documented as of this encounter Plan of Treatment Not on filedocumented as of this encounter Visit Diagnoses Not on filedocumented in this encounter Care Teams Solder Making Supervisor Relationship Specialty Start Date End Date Kaelyn Lr PA-C PCP - General 05/18/10 06/05/13 [address] [facility] [address] [place] [address] documented as of this encounter
--- OUTSIDE RECORDS SUMMARY | 2021-11-01 11:32 | XMS_ITS | Encounter Summary ---
:1990 Author [facility] Address [address] [place] [address] Care Team Providers Name Role Phone Adeline Kaelyn Plata PA-C Primary Care Provider Encounter Details Date Type Department Care Team Description 02/26/2008 PN Conversion [place] [address] [place] [address] [place], [place] [phone] (Wo rk) Social History Tobacco Use Types Packs/Day Years Used Date Smoking Tobacco: Never Assessed Sex Assigned at Date Recorded Not on file documented as of this encounter Plan of Treatment Not on filedocumented as of this encounter Procedures Procedure Name Priority Date/Time Associated Comments Diagnosis URINE CULTURE Routine 02/26/2008 6:16 PM Results for this OCEANOLOGY TEACHER procedure are i n the results section. URINALYSIS Routine 02/26/2008 12:34 Results for this ROUTINE(MICRO IF POS) PM OCEANOLOGY TEACHER proced ure are in the results section. URINALYSIS Routine 02/26/2008 12:34 Results for this MICROSCOPIC PM OCEANOLOGY TEACHER procedure are i n the results section. documented in this encounter Results Urine Culture (02/26/2008 6:16 PM OCEANOLOGY TEACHER) Analysis Performed At Patho logist Time Signature Urine Culture SEE TEXT HP CONVERSION Comment: Patient: DESTINI TORREZ Culture, Urine ?Collected: ??[id number] ??[id number] Source: Clean Ca ?Processed: ??[id number] ??181 ? SENS/1V Final Report ------ ?[id number] ??[id number] 10-50,000 CFU/mL mixed gram positive org anisms and gram negative organisms No further workup Specimen (Source) Anatomical Collection Method Collection Time Re ceived Time Location / / Volume Laterality 02/26/2008 6:16 PM OCEANOLOGY TEACHER Hui Diggs MD LAB_1 Performing Organization Address City/State/ZIP Code Phon e Number HP CONVERSION (ABNORMAL) Urinalysis Routine(Micro If Pos) (02/26/2008 12:34 PM OCEANOLOGY TEACHER) [facility] gist Method Time Signature Turbidity Hazy (A) No normal HP CONVERSION range pH Urine 5.5 4.5 - 7.5 HP CONVERSION Protein Urine Negative Neg-Trac HP CONVERSION Glucose, Negative Neg-Trac HP CONVERSION Qualitative U Ketones Negative Negative HP CONVERSION U BILI Negative Negative HP CONVERSION Blood Urine Negative Negative HP CONVERSION Nitrite Urine Negative Negative HP CONVERSION Leukocyte Trace (A) Negative HP CONVERSION Esterase Urine Urobilinogen Negative 0.2 - 1.0 HP CONVERSION Urine U Specific 1.025 1.005 - 25 HP CONVERSION [place] Specimen (Source) Anatomical Collection Method Collection Time Re ceived Time Location / / Volume Laterality 02/26/2008 12:34 PM OCEANOLOGY TEACHER Hui Diggs MD LAB_1 Performing Organization Address City/State/ZIP Code Phon e Number HP CONVERSION (ABNORMAL) Urinalysis Microscopic (02/26/2008 12:34 PM OCEANOLOGY TEACHER) [facility] Method Time Signature White Blood 25-49/HP (A) 0 - 3 HP CONVERSION Cells Urine Red Blood 0-2/HPF 0 - 2 HP CONVERSION Cells Urine Bacteria Urine Few (A) None HP CONVERSION Urine Mucus Occassnl None HP CONVERSION Epithelial Few Few /HPF HP CONVERSION Cells Specimen (Source) Anatomical Collection Method Collection Time Re ceived Time Location / / Volume Laterality 02/26/2008 12:34 PM OCEANOLOGY TEACHER Hui Diggs MD LAB_1 Performing Organization Address City/[facility] Phon e Number HP CONVERSION documented in this encounter Visit Diagnoses Not on filedocumented in this encounter Care Teams Patient Care Representative Relationship Specialty Start Date End Date Kaelyn Lr PA-C PCP - General 05/18/10 06/05/13 [address] [facility] [address] [place] [address] documented as of this encounter
--- OUTSIDE RECORDS SUMMARY | 2021-11-01 11:32 | XMS_ITS | Encounter Summary ---
:1990 Author Organization [facility] Address [address] [place] [address] Care Team Providers Name Role Phone Kaelyn Lr PA-C Primary Care Provider Encounter Details Date Type Department Care Team Description 05/17/2007 Office Visit Lyn Abdul, Obstetrics/Gynecolog y HOSTESS CASHIER, STORE SALES MANAGER [address] [place] [address] [place], [place] [phone] (Wo rk) Social History Tobacco Use Types Packs/Day Years Used Date Smoking Tobacco: Never Assessed Sex Assigned at Date Recorded Not on file documented as of this encounter Last Filed Vital Signs Vital Sign Reading Time Taken Comments Blood Pressure 110/60 05/17/2007 3:48 PM CDT Pulse - - Temperature - - Respiratory Rate - - Oxygen Saturation - - Inhaled Oxygen Concentration - - Weight 69.4 kg (152 lb 15.6 oz) 05/17/2007 3:48 PM C: 6 9.4kg CDT Height 168.9 cm (5' 6.5) 05/17/2007 3:48 PM C: 168.9cm CDT Body Mass Index 24.32 05/17/2007 3:48 PM CDT Body Mass Index Percentile 78.91 % 05/17/2007 3:48 PM CDT Growth Chart: CDC (Girls, 2-20 Years) documented in this encounter Progress Notes Walker, Lyn J, HOSTESS CASHIER, STORE SALES MANAGER - 05/17/2007 12:01 AM CDT Progress Notes signed by Lyn Cardoso APRN, CNP at 06/12/07 1748 Author: FERMÍN Bueno Service: (none) Author Type: Nurse Practitioner Filed: 06/07/10 0444 Note Time: 05/17/07 0001 Status: Signed Ladies Locker Room Attendant: FERMÍN Bueno (Nurse Practitioner) NAME: DESTINI TORREZ MR#: [id number] ACCT: [id number] VISIT: [id number] DICTATING CLINICIAN: FERMÍN Bueno JOB: [id number] LOC: 512 CLINIC PROGRESS NOTE DATE OF VISIT: 05/17/2007 SUBJECTIVE: : 1990. The patient is a 16-year-old white female, nulliparous, who presents to the clinic today for a routine Pap and pelvic, and a refill on her oral contraceptive which is currently Zovia 1/35. The patient states that the Zovia has much improved her bleeding pattern as she was having menorrhagia as well as dysmenorrhea. She wishes to remain on this. The patient states that she recently became sexually active. I discussed testing for chlamydia, and she voiced understanding of this. Mother was also here in the beginning of the exam, and I did discuss HPV with her. Mother would like Gardasil as well as Destini. I discussed its risks, benefits, and side effects, and both of them voiced understanding. Destini denies any other problems at this time. 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 This is patient's first Pap smear. In reviewing personal and family health history: CURRENT MEDICATIONS: Zovia 1/35 and fluconazole nasal spray daily. ADR/ALLERGIES: CONSIST OF PROMETHAZINE WHICH CAUSES SYNCOPE. SHE HAS NO LATEX ALLERGIES. IMMUNIZATIONS: Are up-to-date. The patient denies any tobacco, alcohol, or caffeine use. She does exercise usually with walking or running 3-5 times a day. The patient does do SBEs. Has not noticed any changes this last month. She does wear a seat belt at all times. Denies any street or recreational drugs. The patient has had chickenpox. SURGERY: Includes sinus surgery and a mole removed. MEDICAL HISTORY: Significant for sinusitis. Menarche at age 12. Menses every 28 days, lasting 4-5 days. The patient occasionally will note some dysmenorrhea. Usually uses Tylenol with good relief. The patient uses OCs as well as condoms for contraceptives. Discussed safe sex, and she did voice understanding. The patient has never been . Mother has hypertension, high cholesterol, and depression. Father is living and well. She has 1 sister, 1 brother, all living and well. Maternal grandmother has asthma, heart disease, high blood pressure, and thyroid disease. Maternal grandfather has diabetes, high blood pressure, and high cholesterol. Paternal grandmother has heart disease and thyroid disease as well. There is no family history of breast, ovarian, uterine, or colon cancer. COMPLETE REVIEW OF SYSTEMS: Was obtained and besides the above was found to be negative. LMP is 04/26/07. OBJECTIVE: VS: BP: 110/60 left arm standard cuff. P: 62. R: 18. Ht: 67 in. Wt: 153. BMI is 24.3. The patient is a WD, WN female, alert and oriented x3. Appears to be in no acute distress. Blood pressure, height, and weight done by nursing staff. Well-developed, well-nourished female. HEENT: Eyes: Sclerae clear. Pupils are equal. Mouth, lips, and gums appear normal. Teeth are in good repair. Mucous membranes intact, throat without exudate. Auriculae symmetrical. NECK: Supple, trachea midline, without cervical lymphadenopathy. Thyroid nontender and without masses. BREASTS: Symmetrical, no palpable masses. Without axillary lymphadenopathy. LUNGS: Clear to auscultation. Respiration effortless. CV: Heart with regular rate and without murmur. Legs without swelling and varicosities. ABDOMEN: Soft, without tenderness and no palpable masses. Without organomegaly. CENTRAL SUPPLY NURSE: External genitalia is without lesions, redness, or discharge. Urethral meatus is not enlarged. No inflammation noted. Vagina is pink and rugated, just a scant amount of clear vaginal discharge noted. Cervix is firm, mobile, and nontender. Uterus is small, involuted, ante, mobile, and nontender. Adnexa were negative. No masses or tenderness noted. LYMPH: Nodes in axillae, neck, and groin without masses. SKIN: Warm and dry to touch. Without lesions. PSYCH: Oriented to time and space. Without agitation or depression. Discussed the above with patient. She did voice understanding. Immunizations were again reviewed with mother. The patient does need a pneumococcal vaccine prior to going to college. She will make an appointment with the injection nurse for this. ASSESSMENT: Pap. STD testing. OC refill. PLAN: Gardasil injection today. The patient will make an appointment for meningococcal vaccine, Pap, Chlamydia. Zovia 28 days, 3 months with 3 refills. Patient to return to clinic in 1 year's time or sooner if need be. Total time with patient was approximately 30 minutes. AJ:[id number] C: 05/18/07 09:22 DOCUMENT: [id number] documented in this encounter Plan of Treatment Not on filedocumented as of this encounter Visit Diagnoses Not on filedocumented in this encounter Care Teams Broadband Installer Relationship Specialty Start Date End Date Kaelyn Lr PA-C PCP - General 05/18/10 06/05/13 [id number] [facility] [address] [place] [address] documented as of this encounter
--- OUTSIDE RECORDS SUMMARY | 2021-11-01 11:33 | XMS_ITS | Encounter Summary ---
:1990 Author Organization [employer] Address [address] [place] [address] Care Team Providers Name Role Phone AdelineEverettmallorie Plata PA-C Primary Care Provider Reason for Visit Reason Comments Other Encounter Details Date Type Department Care Team Description 06/10/2004 Telephone [facility] [address] Ear, Nose, Syl Powell RN Other and Throat [address] [place] [address] Social History Tobacco Use Types Packs/Day Years Used Date Smoking Tobacco: Never Assessed Sex Assigned at Date Recorded Not on file documented as of this encounter Progress Notes Shana Powell RN - 06/10/2004 2:41 PM CDT Phone Note filed by Shana Powell RN at 06/02/101758 Author: Shana Powell RN Service: (none) Author Type: Registered Nurse Filed: 06/02/101758 Note Time: 06/10/04 1441 Status: Signed Custom Clothier: Shana Powell RN (Registered Nurse) 06/10/04 Talked with mom this afternoon about Destini's MRI results.Results of the MRI from 05/29 were within normal limits and her headaches are not due to an ENT origin.It was recommended that if she still continues with the headaches that she should make an appt.to see Dr.Ellen Anderson per . Created on 10Jun2004 2:41pm by SHANA POWELL [facility] documented in this encounter Plan of Treatment Not on filedocumented as of this encounter Visit Diagnoses Not on filedocumented in this encounter Care Teams Sole Cementer Relationship Specialty Start Date End Date Kaelyn Lr PA-C PCP - General 05/18/10 06/05/13 [address] [facility] [address] [place] [address] documented as of this encounter
--- OUTSIDE RECORDS SUMMARY | 2021-11-01 11:33 | XMS_ITS | Encounter Summary ---
:1990 Author Organization [facility] Address [address] [place] [address] Care Team Providers Name Role Phone Unassigned, Provider Primary Care Provider Unavailable Encounter Details Date Type Department Care Team Description 01/16/2004 Hospital Encounter CONFUCIANIST CONVERSION Vini Dutton Social History Tobacco Use Types Packs/Day Years Used Date Smoking Tobacco: Never Assessed Sex Assigned at Date Recorded Not on file documented as of this encounter Medications at Time of Discharge Medication Sig Dispensed Refills Start Date End Date ethynodiol diac-eth Take 1 tablet by 84 3 06/11/2003 09/27/2009 estradiol (AKA KELNOR) mouth daily (every 1-35 MG-MCG tablet 24 hours). UNKNOWN MEDICATION Indications: PN: 0 06/19/2003 02/21/2010 documented as of this encounter Plan of Treatment Not on filedocumented as of this encounter Procedures Procedure Name Priority Date/Time Associated Diagnosis Comme nts CT SINUS WO IV CONT Routine 01/16/2004 4:33 PM Re sults for this SCIENCE TUTOR procedure are i n the results section. documented in this encounter Results CT Sinus WO IV Cont (01/16/2004 4:33 PM SCIENCE TUTOR) Anatomical Region Laterality Modality Head Other Specimen (Source) Anatomical Location Collection Method / Collectio n Time Received Time / Laterality Volume Impressions 01/16/2004 4:33 PM SCIENCE TUTOR : ??Sinus disease involving the frontal, maxillary, posterior ethmoid and sphenoid sinuses. - [id number] Dictating LISANDRA ANDUJAR RADIOLOGIST Narrative 01/16/2004 4:33 PM SCIENCE TUTOR CLINICAL HISTORY: ??Headaches. FINDINGS: ??Coronal sections were made t hrough the facial sinuses. Small amounts of mucosal thickening are seen within both frontal sinuses and there is moderate mucosal th ickening at both maxillary sinuses. ??Ethmoid sinuses anteriorly ar e clear. ??There is a small amount of mucosal thickening and posteri or ethmoid air-cells. ??There is also mucosal thickening within the sp henoid sinus more on the right. ??Right and left osteomeatal unit s are blocked with mucosal thickening. ??No pneumatization is seen in the middle turbinates. Nasal septum is midline. Procedure Note Lisandra Biggs MD - 04/24/2016Forma tting of this note might be different from the original. CLINICAL HISTORY: Headaches. FINDINGS: Coronal sections were made thr ough the facial sinuses. Small amounts of mucosal thickening are seen within both frontal sinuses and there is moderate mucosal th ickening at both maxillary sinuses. Ethmoid sinuses anteriorly are clear. There is a small amount of mucosal thickening and posteri or ethmoid air-cells. There is also mucosal thickening within the sp henoid sinus more on the right. Right and left osteomeatal units are blocked with mucosal thickening. No pneumatization is seen in the middle turbinates. Nasal septum is midline. IMPRESSION : Sinus disease involving the frontal, m axillary, posterior ethmoid and sphenoid sinuses. - [id number] Dictating LISANDRA ANDUJAR RADIOLOGIST Nael Walden MD RAD CT documented in this encounter Visit Diagnoses Not on filedocumented in this encounter Care Teams Smooth Stucco Resurfacer Relationship Specialty Start Date End Date Unassigned, Provider PCP - General 01/21/00 08/17/[address] [place] [address] documented as of this encounter
--- OUTSIDE RECORDS SUMMARY | 2021-11-01 11:33 | XMS_ITS | Encounter Summary ---
:1990 Author Organization [facility] [employer] Address [address] [place] [address] Care Team Providers Name Role Phone AdelineEverettmallorie Plata PA-C Primary Care Provider Encounter Details Date Type Department Care Team Description 03/22/2007 Office Visit [facility] [place] [address] [address] [place] [address] [place] [address] [phone] Social History Tobacco Use Types Packs/Day Years Used Date Smoking Tobacco: Never Assessed Sex Assigned at Date Recorded Not on file documented as of this encounter Last Filed Vital Signs Vital Sign Reading Time Taken Comments Blood Pressure 102/68 03/22/2007 5:09 PM HOG SCALDER Pulse 84 03/22/2007 5:09 PM HOG SCALDER Temperature 37.1 ??C (98.8 ??F) 03/22/2007 5:09 PM HOG SCALDER C: 37 .1 C Respiratory Rate 12 03/22/2007 5:09 PM HOG SCALDER Oxygen Saturation - - Inhaled Oxygen Concentration - - Weight - - Height - - Body Mass Index - - documented in this encounter Progress Notes Mp Farah MD - 03/22/2007 12:01 AM CST Progress Notes signed by Mp Farah MD at 04/17/072041 Author: Mp Farah MD Service: (none) Author Type: Physician Filed: 06/07/10 0218 Note Time: 03/22/07 0001 Status: Signed Fur Machine Operator: Mp Farah MD (Physician) NAME: DESTINI TORREZ MR#: [id number] ACCT: [id number] VISIT: [id number] DICTATING CLINICIAN: Mp Farah MD JOB: [id number] LOC: 520 CLINIC PROGRESS NOTE DATE OF VISIT: 03/22/2007 SUBJECTIVE: : 1990. This is a 16-year-old here today with mother, reports rapid onset of significant fatigue, body aches, fever, and very sore throat over the last 3 days. OBJECTIVE: VS: T: Indicates no fever. P: 84. R: 12, unlabored. She is alert, oriented, cooperative. Her voice sounds congested as her nasal breathing pattern also indicates nasal congestion. HEENT: Reveals 4+ enlarged tonsils with scattered exudates that are Rapid Strep tested negative. They are not particularly reddened and look almost subacute to chronic. NECK: Supple, with a few tender nodes. LUNG QUINTEROS: Clear. ABDOMEN: Soft, nontender, no splenomegaly, no CVA discomfort. Rapid Strep Test negative. Monotest negative. White count in the normal range, slightly elevated at 10,000, without significant differential shift. ASSESSMENT: Viral syndrome. PLAN: Symptomatic care. Recommended recheck for mono in 10-14 days. TEL:[id number] C: 03/23/07 17:51 DOCUMENT: [id number] SCALDER documented in this encounter Plan of Treatment Not on filedocumented as of this encounter Visit Diagnoses Not on filedocumented in this encounter Care Teams Animal Husbandry Teacher Relationship Specialty Start Date End Date Kaelyn Lr PA-C PCP - General 05/18/10 06/05/13 [address] [facility] [address] [place] [address] documented as of this encounter
--- OUTSIDE RECORDS SUMMARY | 2021-11-01 11:33 | XMS_ITS | Encounter Summary ---
:1990 Author Organization [employer] Address [address] [place] [address] Care Team Providers Name Role Phone Adeline Kaelyn Plata PA-C Primary Care Provider Reason for Visit Reason Comments Other Encounter Details Date Type Department Care Team Description 05/29/2004 Telephone [facility] [address] Ear, Nose, Syl Powell RN Other and Throat [address] [place] [address] Social History Tobacco Use Types Packs/Day Years Used Date Smoking Tobacco: Never Assessed Sex Assigned at Date Recorded Not on file documented as of this encounter Progress Notes Shana Powell RN - 05/29/2004 12:12 PM CDT Phone Note filed by Shana Powell RN at 06/02/101746 Author: Shana Powell RN Service: (none) Author Type: Registered Nurse Filed: 06/02/101746 Note Time: 05/29/04 1212 Status: Signed Quality Control Clerk: Shana Powell RN (Registered Nurse) 04/30/04 Mom calling saying Destini is having discharge from her left nostril and clots are coming out of her sinus after she does the rinses. Mom was reassured that it is most likely old blood which is good to irrigate out and that should help to reduce her pain. If the blood is bright red she should call us back. Created on 29May2004 12:12pm by SHANA POWELL OR NUCLEAR MEDICINE TECHNOLOGIST documented in this encounter Plan of Treatment Not on filedocumented as of this encounter Visit Diagnoses Not on filedocumented in this encounter Care Teams Card Stripper Relationship Specialty Start Date End Date Kaelyn Lr PA-C PCP - General 05/18/10 06/05/[address] [facility] [address] [place] [address] documented as of this encounter
--- OUTSIDE RECORDS SUMMARY | 2021-11-01 11:33 | XMS_ITS | Encounter Summary ---
:1990 Author Organization [facility] Address [address] [place] [address] Care Team Providers Name Role Phone Adeline Kaelyn Plata PA-C Primary Care Provider Encounter Details Date Type Department Care Team Description 11/09/[address] [facility] [place] [address] [address] [place] [address] Social History Tobacco Use Types Packs/Day Years Used Date Smoking Tobacco: Never Assessed Sex Assigned at Date Recorded Not on file documented as of this encounter Last Filed Vital Signs Vital Sign Reading Time Taken Comments Blood Pressure 122/73 11/09/2005 7:48 PM CDT Pulse 79 11/09/2005 7:48 PM CDT Temperature 37.5 ??C (99.5 ??F) 11/09/2005 7:48 PM CDT C: 37 .5 C Respiratory Rate 16 11/09/2005 7:48 PM CDT Oxygen Saturation - - Inhaled Oxygen Concentration - - Weight - - Height - - Body Mass Index - - documented in this encounter Progress Notes Ced Roy MD - 11/09/2005 12:01 AM CDT Progress Notes signed by Ced Roy MD at 12/07/05 5251 Author: Ced Roy MD Service: (none) Author Type: Physician Filed: 06/06/10 1550 Note Time: 11/09/05 0001 Status: Signed Tax Consultant: Ced Roy MD (Physician) NAME: DESTINI TORREZ MR: [id number] ACCT: [id number] VISIT: [id number] DICTATING CLINICIAN: Ced Roy MD JOB: [id number] LOC: 520 CLINIC PROGRESS NOTE DATE OF VISIT: 11/09/2005 SUBJECTIVE: A 15-year-old female is noting sinus pain and pressure. Actually started out with respiratory symptoms and congestion about 2 weeks ago. Now in the past 2 days has had pain on the top of the roof of her mouth, a swelling feeling up into the teeth, sore throat symptoms. Rarely coughs. PAST MEDICAL HISTORY: Is remarkable for some sinus surgery in the past. MEDICATIONS: Zovia for menstrual irregularity. ADR/ALLERGIES: NONE. OBJECTIVE: VS: BP: 122/73. T: 99.5. P: 79. R: 16. A well-nourished and hydrated female is tender to palpate over the maxillary sinus. The gums look normal. She has got a bridge across the back of her upper incisors. There is no blistering or canker sores in the mouth. Lymph nodes are moderately tender at the angle of the jaw. Nares revealed yellow mucus and crusting. TMs without erythema or fluid. LUNGS: Clear to auscultation and percussion. Her mother has a repeated coughing problem with the visit today. ASSESSMENT: Sinusitis. PLAN: Zithromax Tri-Bk as directed. Entex PSE for symptoms of plugging and congestion. Sinusitis information is given and reviewed. Encouraged plenty of liquids. If not improving over the next week or other difficulties, recheck. BOR:[id number] C: 11/10/05 19:24 DOCUMENT: [id number] documented in this encounter Plan of Treatment Not on filedocumented as of this encounter Visit Diagnoses Not on filedocumented in this encounter Care Teams Machine Packager Relationship Specialty Start Date End Date Kaelyn Lr PA-C PCP - General 05/18/10 06/05/13 [address] [facility] [address] [place] [address] documented as of this encounter
--- OUTSIDE RECORDS SUMMARY | 2021-11-01 11:33 | XMS_ITS | Encounter Summary ---
:1990 Author Organization [facility] Address [address] [place] [address] Care Team Providers Name Role Phone Adeline Kaelyn Plata PA-C Primary Care Provider Encounter Details Date Type Department Care Team Description 01/28/2007 [place] [address] [facility] [address] [place] [address] [place] [address] (Wo rk) Social History Tobacco Use Types Packs/Day Years Used Date Smoking Tobacco: Never Assessed Sex Assigned at Date Recorded Not on file documented as of this encounter Plan of Treatment Not on filedocumented as of this encounter Procedures Procedure Name Priority Date/Time Associated Diagnosis Comme nts STREP GROUP A Routine 01/28/2007 11:33 AM Results for this ANTIGEN TEST ANIMAL TREATMENT INVESTIGATOR procedure are i n the results section. BETA STREP FOLLOWUP Routine 01/28/2007 11:33 AM R esults for this ANIMAL TREATMENT INVESTIGATOR procedure are i n the results section. documented in this encounter Results Strep Group A Antigen Test (01/28/2007 11:33 AM ANIMAL TREATMENT INVESTIGATOR) Analysis Performed At Patho logist Time Signature Strep Group A Negative Negative HP CONVERSION Antigen Test Comment: Culture to follow. Specimen (Source) Anatomical Collection Method Collection Time Re ceived Time Location / / Volume Laterality 01/28/2007 11:33 AM ANIMAL TREATMENT INVESTIGATOR Keny Wade MD LAB_1 Performing Organization Address City/State/ZIP Code Phon e Number HP CONVERSION Beta Strep Followup (01/28/2007 11:33 AM ANIMAL TREATMENT INVESTIGATOR) P athologist Signature Strep Screen SEE TEXT HP CONVERSION Comment: Patient: DESTINI TORREZ Rapid Strep Follow up Culture ? Collected: ??[id number] ??[id number] Source: Throat ?Processed: ??[id number] ??1159 ? 1V Final Report ------ ?[id number] ??[id number] No beta hemolytic Strep group A isolated . Specimen (Source) Anatomical Collection Method Collection Time Re ceived Time Location / / Volume Laterality 01/28/2007 11:33 AM ANIMAL TREATMENT INVESTIGATOR Keny Wade MD LAB_1 Performing Organization Address City/State/ZIP Code Phon e Number HP CONVERSION documented in this encounter Visit Diagnoses Not on filedocumented in this encounter Care Teams Uppers Edge Burnisher Relationship Specialty Start Date End Date Kaelyn Lr PA-C PCP - General 05/18/10 06/05/13 [address] [facility] [address] [place] [address] documented as of this encounter
--- OUTSIDE RECORDS SUMMARY | 2021-11-01 11:33 | XMS_ITS | Encounter Summary ---
:1990 Author Organization [facility] Address [address] [place] [address] Care Team Providers Name Role Phone Kaelyn Lr PA-C Primary Care Provider Encounter Details Date Type Department Care Team Description 03/22/2007 PN Conversion Only [place] [facility] [address] [address] [place] [address] Social History Tobacco Use Types Packs/Day Years Used Date Smoking Tobacco: Never Assessed Sex Assigned at Date Recorded Not on file documented as of this encounter Plan of Treatment Not on filedocumented as of this encounter Visit Diagnoses Not on filedocumented in this encounter Care Teams Supervisor Central Supply Relationship Specialty Start Date End Date Kaelyn Lr PA-C PCP - General 05/18/10 06/05/13 [address] [facility] [address] [place] [address] documented as of this encounter
--- OUTSIDE RECORDS SUMMARY | 2021-11-01 11:33 | XMS_ITS | Encounter Summary ---
:1990 Author Organization [facility] Address [address] [place] [address] Care Team Providers Name Role Phone Adeline Kaelyn Plata PA-C Primary Care Provider Encounter Details Date Type Department Care Team Description 11/17/2005 Office Visit Lyn Abdul, Obstetrics/Gynecolog y INSPECTOR RUBBER STAMP DIE, CUSTOMER RELATIONSHIP SPECIALIST [address] [place] [address] [place], [place] [phone] (Wo rk) Social History Tobacco Use Types Packs/Day Years Used Date Smoking Tobacco: Never Assessed Sex Assigned at Date Recorded Not on file documented as of this encounter Last Filed Vital Signs Vital Sign Reading Time Taken Comments Blood Pressure 110/70 11/17/2005 3:08 PM CDT Pulse - - Temperature - - Respiratory Rate - - Oxygen Saturation - - Inhaled Oxygen Concentration - - Weight 70.8 kg (156 lb) 11/17/2005 3:08 PM CDT C: 70.8k g Height 168.9 cm (5' 6.5) 11/17/2005 3:08 PM CDT C: 168 .9cm Body Mass Index 24.8 11/17/2005 3:08 PM CDT Body Mass Index Percentile 84.99 % 11/17/2005 3:08 PM CD T Growth Chart: CDC (Girls, 2-20 Years) documented in this encounter Progress Notes Lyn Cardoso APRN, CNP - 11/17/2005 12:01 AM CDT Progress Notes signed by Lyn Cardoso APRN, CNP at 12/20/05 0931 Author: FERMÍN Bueno Service: (none) Author Type: Nurse Practitioner Filed: 06/06/10 1601 Note Time: 11/17/05 0001 Status: Signed Seo Assistant: FERMÍN Bueno (Nurse Practitioner) NAME: DESTIIN TORREZ MR: [id number] ACCT: [id number] VISIT: [id number] DICTATING CLINICIAN: FERMÍN Bueno JOB: [id number] LOC: 512 CLINIC PROGRESS NOTE DATE OF VISIT: 11/17/2005 SUBJECTIVE: : 1990. The patient is a 15-year-old white female, nulliparous, who presents to the clinic today for a refill on her Zovia. The patient was originally placed on this in 05/2003, secondary to menometrorrhagia and iron-deficiency anemia. The patient states that since being on the Zovia, her periods are every 28 days, lasting four to five days, versus the 10 to 12 days prior to going on oral contraceptives. Patient states that she is not sexually active at this time, nor has she been in the past. I discussed with patient because she is not sexually active, she does not need a Pap smear at this time, and she did voice understanding. Patient would however like a refill on her oral contraceptives. Her blood pressure has remained stable being on oral contraceptives for two years now. Patient states that she discontinued her iron and vitamin C approximately 3 to 4 months ago. Her mother would like her iron, hemoglobin and ferritin checked today to see if Destini needs to remain on these or if she can come off of this permanently at this time. Destini denies any other problems. She is currently on Z-BEL and Entex for a severe sinus infection as well as Zovia . ADR/ALLERGIES: SHE HAS NO KNOWN ALLERGIES, NO LATEX ALLERGIES. The patient is a nonsmoker. No alcohol. Caffeine is usually one serving daily. She does exercise two to three times per week, does not do SBEs, this was encouraged and information was given. Patient does wear a seatbelt at all times. Diet appears adequate, and she gets a good source of calcium in daily, usually with two to three servings of yogurt or milk. Surgical includes sinus surgery last year. Menarche at age 12. Menses every 28 days x 4 to 5 days. Patient denies any dysmenorrhea. No history of abnormal Paps, YASMINE, STD, PID or IUD use. Patient has never been . Mother has high blood pressure, also high cholesterol and thyroid issues. Destini has two paternal aunts who have had breast cancer. Father is living and well. She has one brother, one sister all living and well. Maternal grandparents both have hypertension as well as high cholesterol. Grandmother has thyroid problems. Paternal grandmother has thyroid problems. Paternal grandfather - no history is noted. Complete review of systems was obtained, and besides the above, was found to be negative. I discussed the above with Destini and her mother, and they both voiced understanding. OBJECTIVE: VS: BP: 110/70, left arm, standard cuff. P: 60. R: 18. Ht: 66-02/18 in. Wt: 156. LMP: 10/28/05. The patient is a WD, WN female, alert and oriented x 3, appears to be in no acute distress. No exam was done today. Discussed the above with patient, she did voice understanding. ASSESSMENT: OC refill. PLAN: Hemoglobin, ferritin, iron. Patient will be notified of results. Chan , 28 day, three months x 3 refills. Patient does not need a Pap until she is 20 or sexually active. Patient did voice understanding of this. Total time with patient was approximately 20 minutes. [facility]:[id number] C: 11/20/05 10:49 DOCUMENT: [id number] R DIRECTOR documented in this encounter Plan of Treatment Not on filedocumented as of this encounter Visit Diagnoses Not on filedocumented in this encounter Care Teams Media Reporter Relationship Specialty Start Date End Date Kaelyn Lr PA-C PCP - General 05/18/10 06/05/[address] [facility] [address] [place] [address] documented as of this encounter
--- OUTSIDE RECORDS SUMMARY | 2021-11-01 11:33 | XMS_ITS | Encounter Summary ---
:1990 Author Organization [facility] [employer] Address [address] [place] [address] Care Team Providers Name Role Phone Adeline Kaelyn Plata PA-C Primary Care Provider Encounter Details Date Type Department Care Team Description 01/28/2007 Office Visit [facility] [place] [address] [place] [address] [place] [address] [phone] (Wo rk) Social History Tobacco Use Types Packs/Day Years Used Date Smoking Tobacco: Never Assessed Sex Assigned at Date Recorded Not on file documented as of this encounter Last Filed Vital Signs Vital Sign Reading Time Taken Comments Blood Pressure 116/70 01/28/2007 10:05 AM FAMILY WELFARE SOCIAL WORK PROFESSOR Pulse - - Temperature 36.9 ??C (98.4 ??F) 01/28/2007 10:05 AM FAMILY WELFARE SOCIAL WORK PROFESSOR C: 3 6.9 C Respiratory Rate - - Oxygen Saturation - - Inhaled Oxygen Concentration - - Weight 68 kg (149 lb 15.7 oz) 01/28/2007 10:05 AM FAMILY WELFARE SOCIAL WORK PROFESSOR C : 68.0kg Height - - Body Mass Index - - documented in this encounter Progress Notes Keny Euceda MD - 01/28/2007 12:01 AM CST Progress Notes signed by Keny Euceda MD at 01/31/07 1222 Author: Keny Euceda MD Service: (none) Author Type: Physician Filed: 06/07/10 0105 Note Time: 01/28/07 0001 Status: Signed Hazardous Waste Technician: Keny Euceda MD (Physician) NAME: DESTINI TORREZ MR#: [id number] ACCT: [id number] VISIT: [id number] DICTATING CLINICIAN: KENY EUCEDA MD JOB: [id number] LOC: 502 CLINIC PROGRESS NOTE DATE OF VISIT: 01/28/2007 SUBJECTIVE: : 1990. CHIEF COMPLAINT: Recurrent sinus symptoms. HPI: This 16-year-old female who underwent sinus surgery in 2004 comes in with persistent, recurrent sinus symptoms now since 11/2006. She has had persistent, thick, discolored, postnasal drainage with sinus pain and pressure, and pain in the teeth. She initially was treated with Augmentin in early 11/2006. She also received a course of tetracycline [place] recently in [facility]. The symptoms have temporarily improved with these measures but not completely resolved. She has a sore throat with this as well. She does not smoke. She is on OCPs for cycle regulation. OBJECTIVE: VS: BP: 116/70. T: 98.4. Wt: 150 lb. GENERAL: This 16-year-old female appears well, breathing comfortably. Appears well-nourished. Sclerae are clear. Tympanic membranes without erythema although partially obscured by cerumen so limited exam. Nose shows no obvious purulence. Oropharynx without exudate, there is some mild erythema. She is tender to tapping over the maxillary sinuses bilaterally. NECK: Supple without adenopathy. ASSESSMENT: Persistent, recurrent sinusitis. PLAN: Augmentin for 14 days. Flonase nasal spray which she will use for the next several weeks. If her symptoms completely resolve she will stay on the Flonase for about 3 months or so and then try discontinuing at that point. If she has recurrent symptoms promptly thereafter she will go back on the Flonase indefinitely thereafter. Nasal saline irrigation. If symptoms persist here in the next couple of weeks or with just minimal improvement, they will call back and the next step will be to repeat a sinus CT. JAREDM:[id number] C: 01/31/07 09:16 DOCUMENT: [id number] LY WELFARE SOCIAL WORK PROFESSOR documented in this encounter Plan of Treatment Not on filedocumented as of this encounter Visit Diagnoses Not on filedocumented in this encounter Care Teams Senior Quality Manager Relationship Specialty Start Date End Date Kaelyn Lr PA-C PCP - General 05/18/10 06/05/13 [address] [facility] [address] [place] [address] documented as of this encounter
--- OUTSIDE RECORDS SUMMARY | 2021-11-01 11:33 | XMS_ITS | Encounter Summary ---
:1990 Author Organization [employer] Address [address] [place] [address] Care Team Providers Name Role Phone Adeline Kaelyn Plata PA-C Primary Care Provider Encounter Details Date Type Department Care Team Description 03/31/2006 Office Visit [facility] Meagan Zheng PA-C [address] [address] [place] [address] [phone] (Wo rk) Social History Tobacco Use Types Packs/Day Years Used Date Smoking Tobacco: Never Assessed Sex Assigned at Date Recorded Not on file documented as of this encounter Last Filed Vital Signs Vital Sign Reading Time Taken Comments Blood Pressure 104/64 03/31/2006 4:02 PM FRANCHISE FIELD CONSULTANT Pulse 84 03/31/2006 4:02 PM FRANCHISE FIELD CONSULTANT Temperature 36.5 ??C (97.7 ??F) 03/31/2006 4:02 PM FRANCHISE FIELD CONSULTANT C: 36 .5 C Respiratory Rate 18 03/31/2006 4:02 PM FRANCHISE FIELD CONSULTANT Oxygen Saturation - - Inhaled Oxygen Concentration - - Weight 67.1 kg (147 lb 15.9 oz) 03/31/2006 4:02 PM FRANCHISE FIELD CONSULTANT C: 67.1kg Height - - Body Mass Index - - documented in this encounter Progress Notes Meagan Gordon PA-C - 03/31/2006 12:01 AM CST Progress Notes signed by Meagan Gordon PA-C at 04/05/06 1011 Author: Meagan Gordon PA-C Service: (none) Author Type: Physician Cementer Machine Filed: 06/06/10 2313 Note Time: 03/31/062013 Status: Signed Tree Puller: Meagan Gordon PA-C (Physician Cementer Machine) NAME: DESTINI TORREZ MR#: [id number] ACCT: VISIT: [id number] DICTATING CLINICIAN: MARYURI XIE JOB: [id number] LOC: 502 CLINIC PROGRESS NOTE DATE OF VISIT: 03/31/2006 SUBJECTIVE: Destini is a 15-year-old female here with her mom. They are concerned about the possibility of a sinus infection. She has had sinus symptoms for the last 5 or 6 days. She is not yet getting better. She has had a lot of nasal drainage, had a little bit of a sore throat, and a cough that has been somewhat productive. Denies shortness of breath or wheezing. She is using DayQuil. The rhinorrhea seems to be getting better but everything else is getting worse. Not having any nighttime symptoms. PAST MEDICAL HISTORY: Sinusitis including sinus surgery. No asthma or allergies. CURRENT MEDICATIONS: Reviewed and updated in the health profile in [employer] today. ADR/ALLERGIES: REVIEWED AND UPDATED IN THE HEALTH PROFILE IN [employer] TODAY. OBJECTIVE: VS: BP: 104/64. T: 97.7. P: 84. Wt: 148. CONSTITUTIONAL: Sitting comfortably, appears well. Eyes: Sclerae and conjunctivae clear. ENT: TMs nonerythematous. Nasal mucosa moderately congested, minimal sinus tenderness. Oropharynx clear. NECK: No cervical lymphadenopathy or thyromegaly. LUNGS: Clear to auscultation. HEART: Regular rate and rhythm without murmur. ASSESSMENT: Upper respiratory infection versus sinusitis. PLAN: Entex PSE 1 tablet twice a day. If symptoms are not improving, amoxicillin prescription given, 875 mg. Increase hydration. Follow up if symptoms do not improve. AMS:[id number] C: 04/01/06 17:04 DOCUMENT: [id number] CHISE FIELD CONSULTANT documented in this encounter Plan of Treatment Not on filedocumented as of this encounter Visit Diagnoses Not on filedocumented in this encounter Care Teams Furnace Charger Relationship Specialty Start Date End Date Kaelyn Lr PA-C PCP - General 05/18/10 06/05/13 [address] [facility] [address] [place] [address] documented as of this encounter
--- OUTSIDE RECORDS SUMMARY | 2021-11-01 11:33 | XMS_ITS | Encounter Summary ---
:1990 Author Organization [employer] Address [address] [place] [address] Care Team Providers Name Role Phone Unassigned, Provider Primary Care Provider Unavailable Encounter Details Date Type Department Care Team Description 05/29/2004 Hospital Encounter GNOSTICISM CONVERSION Nael Walden MD Social History Tobacco Use Types Packs/Day Years [...] 24 hours). UNKNOWN MEDICATION Indications: PN: 0 04/08/2004 02/21/2010 UNKNOWN MEDICATION Indications: PN: 0 06/19/2003 02/21/2010 documented as of this encounter Plan of Treatment Not on filedocumented as of this encounter Procedures Procedure Name Priority Date/Time Associated Diagnosis Comme nts MR BRAIN W/WO IV Routine 05/29/2004 1:59 PM Resul ts for this CONT CDT procedure are i n the results section. documented in this encounter Results MR Brain W/WO IV Cont (05/29/2004 1:59 PM CDT) Anatomical Region Laterality Modality Head Other Specimen (Source) Anatomical Location Collection Method / Collectio n Time Received Time / Laterality Volume Impressions 05/29/2004 1:59 PM CDT : ? 1. ?? Study ?moderately to severely degraded by metallic susceptibility artifact from ?den arie hardware which completely obscures the area of the face and ?sinuses. ??Clinical history stated ?sinus problems. ??If eval uation of ?the paranasal sinuses is of clinical concern, would knox ggest correlation with CT scan of the paranasal sinuses which m ay be less degraded by the susceptibility artifact from the braces. ? 2. ?? Grossly ?unremarkabl e MRI of the brain within the limitations of the metal ?artifac t. [id number] Dictating WAYNE WALLER X RADIOLOGIST Narrative 05/29/2004 1:59 PM CDT CLINICAL HISTORY: ??Headaches, sinus problems. TECHNIQUE: ??An MRI of the brain with an d without contrast was done. 15 mL of Magnevist was injected intraven ously. FINDINGS: ??The images are moderately to severely degraded by metallic susceptibility artifact from braces whic h completely obscures the area of the face, sinuses and orbits. ?? The artifact is most pronounced on the axial images. ??The co rashida images are less degraded by the metallic susceptibility artifact. ??The diffusion sequence is uninterpretable. ??The ventricles appear normal in size. ??No definite signal abnormalities are seen involving the brain parenchyma within the limitations of the metallic suscepti bility artifact. ??The postcontrast images appear grossly unrem arkable. Procedure Note Wayne Sawant MD - 04/24/2016 CLINICAL HISTORY: Headaches, sinus probl ems. TECHNIQUE: An MRI of the brain with and without contrast was done. 15 mL of Magnevist was injected intraven ously. FINDINGS: The images are moderately to s everely degraded by metallic susceptibility artifact from braces whic h completely obscures the area of the face, sinuses and orbits. Th e artifact is most pronounced on the axial images. The adamaris nal images are less degraded by the metallic susceptibility artifact. The diffusion sequence is uninterpretable. The ventricles appear n ormal in size. No definite signal abnormalities are seen involving the brain parenchyma within the limitations of the metallic suscepti bility artifact. The postcontrast images appear grossly unrem arkable. IMPRESSION : 1. Study moderately to severely degrade d by metallic susceptibility artifact from dental hard kim which completely obscures the area of the face and sinuse s. Clinical history stated sinus problems. If evaluation of the paranasal sinuses is of clinical concern, would knox ggest correlation with CT scan of the paranasal sinuses which m ay be less degraded by the susceptibility artifact from the braces. 2. Grossly unremarkable MRI of the brai n within the limitations of the metal artifact. [id number] Dictating WAYNE WALLER X RADIOLOGIST Nael Walden MD RAD MRI documented in this encounter Visit Diagnoses Not on filedocumented in this encounter Care Teams Quality Control Engineer Relationship Specialty Start Date End Date Unassigned, Provider PCP - General 01/21/00 08/17/[address] [place] [id number] documented as of this encounter
--- OUTSIDE RECORDS SUMMARY | 2021-11-01 11:33 | XMS_ITS | Encounter Summary ---
:1990 Author Organization [employer] Address [address] [place] [address] Care Team Providers Name Role Phone Adeline Kaelyn Plata PA-C Primary Care Provider Encounter Details Date Type Department Care Team Description 05/06/2005 Office Visit [facility] [place] [address] [address] [place] [address] Social History Tobacco Use Types Packs/Day Years Used Date Smoking Tobacco: Never Assessed Sex Assigned at Date Recorded Not on file documented as of this encounter Last Filed Vital Signs Vital Sign Reading Time Taken Comments Blood Pressure 136/88 05/06/2005 5:52 PM TRIMMING ASSEMBLER Pulse 84 05/06/2005 5:52 PM TRIMMING ASSEMBLER Temperature 36.3 ??C (97.3 ??F) 05/06/2005 5:52 PM TRIMMING ASSEMBLER C: 36 .3 C Respiratory Rate 16 05/06/2005 5:52 PM TRIMMING ASSEMBLER Oxygen Saturation - - Inhaled Oxygen Concentration - - Weight - - Height - - Body Mass Index - - documented in this encounter Progress Notes Tee Downing MD - 05/06/2005 12:01 AM CST Progress Notes signed by Tee Downing MD at 05/29/05 7558 Author: Tee Downing MD Service: (none) Author Type: Physician Filed: 06/06/10 1212 Note Time: 05/06/05 0001 Status: Signed J2Ee Engineer: Tee Downing MD (Physician) NAME: DESTINI TORREZ MR: [id number] ACCT: [id number] VISIT: [id number] DICTATING CLINICIAN: TEE DOWNING MD JOB: [id number] CLINIC PROGRESS NOTE DATE OF VISIT: 05/06/2005 SUBJECTIVE: The patient had a sore throat initially going back to a couple of weeks ago and then sinus pressure, which is still there, without fever. She has been blowing a lot of thick, yellow mucus out. She has not had vomiting or diarrhea but a slight cough producing yellow mucus. PAST HISTORY: Includes sinus surgery a year ago and this would only be her first infection since then. Apparently, she had sinus polyps, and they had to do a sinus window per mom. SOCIAL HISTORY: Includes family having strep but that was about 2 weeks ago. ADR/ALLERGIES: THERE HAVE BEEN NO ALLERGIES TO MEDICINES. No smoke exposure. MEDICATIONS: Apparently, she takes control, which they say is for period regulation. They deny the possibility of or nursing. OBJECTIVE: VS: T: 97. P: 84. R: 16. Tenderness present over the maxillary sinuses with thick drainage into the posterior pharynx and positive tilt test and swollen anterior glands. LUNGS: Clear. ASSESSMENT: Pharyngitis, probably from sinusitis. PLAN: They refused strep test but agreed to take the whole course of medicine and wanted to go 14 days, as she has had the necessity of doing that to clear up previous infections, so we used Augmentin 875 b.i.d. x14 days. Did know if the control pills are at all for contraception, that she needs a back up method for control, during that entire 14 days and follow up if not quickly or completely improved or recurrent. WDL:[id number] C: 05/06/05 22:01 DOCUMENT: [id number] documented in this encounter Plan of Treatment Not on filedocumented as of this encounter Visit Diagnoses Not on filedocumented in this encounter Care Teams Direct Mail Coordinator Relationship Specialty Start Date End Date Kaelyn Lr PA-C PCP - General 05/18/10 06/05/13 [address] [facility] [address] [place] [address] documented as of this encounter
--- OUTSIDE RECORDS SUMMARY | 2021-11-01 11:33 | XMS_ITS | Encounter Summary ---
:1990 Author Organization [facility] Address [address] [place] [address] Care Team Providers Name Role Phone Kaelyn Lr PA-C Primary Care Provider Encounter Details Date Type Department Care Team Description 04/08/2004 PN Conversion Only [place] [address] [place] [address] Social History Tobacco Use Types Packs/Day Years Used Date Smoking Tobacco: Never Assessed Sex Assigned at Date Recorded Not on file documented as of this encounter Plan of Treatment Not on filedocumented as of this encounter Visit Diagnoses Not on filedocumented in this encounter Care Teams Chief Projectionist Relationship Specialty Start Date End Date Kaelyn Lr PA-C PCP - General 05/18/10 06/05/13 [address] [facility] [address] [place] [address] documented as of this encounter
--- OUTSIDE RECORDS SUMMARY | 2021-11-01 11:33 | XMS_ITS | Encounter Summary ---
:1990 Author Organization [employer] Address [address] [place] [address] Care Team Providers Name Role Phone Kaelyn Lr Boni CHARLES Primary Care Provider Encounter Details Date Type Department Care Team Description 01/11/2004 Office Visit [facility] [address] Ear, Nose, Siobhan Walden MD and Throat [address] [place], [place] [address] Social History Tobacco Use Types Packs/Day Years Used Date Smoking Tobacco: Never Assessed Sex Assigned at Date Recorded Not on file documented as of this encounter Progress Notes Siobhan Walden MD - 01/11/2004 12:01 AM CST Progress Notes signed by Siobhan Walden MD at 01/19/04 1049 Author: Siobhan Walden MD Service: (none) Author Type: Physician Filed: 06/06/10 0245 Note Time: 01/11/04 0001 Status: Signed Health Care Consultant: Siobhan Walden MD (Physician) NAME: DESTINI TORREZ MR: [id number] ACCT: [id number] VISIT: [id number] DICTATING CLINICIAN: SIOBHAN WALDEN MD JOB: [id number] CLINIC PROGRESS NOTE DATE OF VISIT: 01/11/2004 SUBJECTIVE: Destini is a 13-year-old patient who presents with her mother with concerns about headaches, that is her chief complaint. The headaches are frontal and involve both orbits. The patient occasionally says her ears hurt as well. The headaches have been present now for the last two months. They are not associated with fever, facial redness or swelling. The patient is able to breathe through her nose and her sense of smell and taste remain intact. She had some similar headaches in the spring that lasted a couple of weeks and then cleared. The patient has been on Entex and Amoxicillin without any significant symptomatic benefit. Patient is a nonsmoker. She is exposed to second hand smoker, her mother is a smoker. Patient has had no significant head injury. OBJECTIVE: Destini is a healthy appearing 13-year-old female who appears to be in good health. She has no facial hyperemia, edema or asymmetry. Ears: Show intact translucent tympanic membranes. Nose: Reveals mild mucosal congestion. There is mild deviation of the nasal septum superiorly on the right side. The nasal membranes were decongested with Abimael-Synephrine and topically anesthetized with 4% Xylocaine because I could not get a good view of the nasopharynx. The exam of the mouth reveals tonsils present. Indirect nasopharyngoscopy was difficult because of hyperactive gag. Indirect laryngoscopy revealed normal appearing and functioning vocal cords. They were quite easy to see. Neck: Revealed no discreet adenopathy. To better evaluate the intranasal space, a 2.7 mm 30 degree endonasal telescope was used to examine the region of the nasal cavity. The patient was noted to have normal right middle turbinate. One could actually see the natural ostium through the right maxillary sinus. No polyps were noted. On the left side the patient actually had a mid-septal deviation making it more difficult to see the left middle turbinate but there was no polypoid tissue noted in the region of the left middle meatus. Scope was passed along the floor of the nose bilaterally to the nasopharynx which appeared normal. There was no significant residual adenoid tissue remaining. ASSESSMENT: Facial tension headaches. PLAN: We will obtain CT scans of the paranasal sinuses to further evaluate the possibility of chronic sinus disease being a contributing cause for her symptoms. MLS:[id number] C: 01/11/04 15:23 DOCUMENT: [id number] CUTTER documented in this encounter Plan of Treatment Not on filedocumented as of this encounter Visit Diagnoses Not on filedocumented in this encounter Care Teams Reporting Developer Relationship Specialty Start Date End Date Kaelyn Lr PA-C PCP - General 05/18/10 06/05/13 [address] [facility] [address] [place] [address] documented as of this encounter
--- OUTSIDE RECORDS SUMMARY | 2021-11-01 11:33 | XMS_ITS | Encounter Summary ---
:1990 Author Organization [facility] Address [address] [place] [address] Care Team Providers Name Role Phone Adeline Kaelyn Plata PA-C Primary Care Provider Encounter Details Date Type Department Care Team Description 11/17/2005 PN Conversion Only Lyn Smith [address] [facility], DISTRIBUTION TECHNICIAN, VICE [place] [address] [facility] [place] [phone] (Wo rk) Social History Tobacco Use Types Packs/Day Years Used Date Smoking Tobacco: Never Assessed Sex Assigned at Date Recorded Not on file documented as of this encounter Plan of Treatment Not on filedocumented as of this encounter Procedures Procedure Name Priority Date/Time Associated Diagnosis Comme nts IRON (NO IBC OR Routine 11/17/2005 3:39 PM Result s for this SAT) CDT procedure are i n the results section. HEMOGLOBIN, BLOOD Routine 11/17/2005 3:39 PM Resu lts for this CDT procedure are i n the results section. FERRITIN Routine 11/17/2005 3:39 PM Results f or this CDT procedure are i n the results section. documented in this encounter Results Ferritin (11/17/2005 3:39 PM CDT) P athologist Signature Ferritin Serum 21 10 - 291 HP CONVERSION ng/mL Specimen (Source) Anatomical Collection Method Collection Time Re ceived Time Location / / Volume Laterality 11/17/2005 3:39 PM CDT Lyn J Walker SUBRAMANIAN, [facility]_1 Performing Organization Address City/[facility]/ZIP Code Phon e Number HP CONVERSION Hemoglobin, Blood (11/17/2005 3:39 PM CDT) athologist Signature Hemoglobin 14.4 12.0 - 16.0 HP CONVERSION gm/dL Specimen (Source) Anatomical Collection Method Collection Time Re ceived Time Location / / Volume Laterality 11/17/2005 3:39 PM CDT Lyn J Walker SUBRAMANIAN, [facility]_1 Performing Organization Address [facility]/ZIP Code Phon e Number HP CONVERSION Iron (no IBC or Sat) (11/17/2005 3:39 PM CDT) athologist Signature Iron, Serum 76 50 - 165 HP CONVERSION ug/dL Specimen (Source) Anatomical Collection Method Collection Time Re ceived Time Location / / Volume Laterality 11/17/2005 3:39 PM CDT Lyn J Walker SUBRAMANIAN, [facility] Performing Organization Address [facility] Phon e Number HP CONVERSION documented in this encounter Visit Diagnoses Not on filedocumented in this encounter Care Teams Radiation Technician Relationship Specialty Start Date End Date Kaelyn Lr PA-C PCP - General 05/18/10 06/05/13 [address] [facility] [address] [place] [address] documented as of this encounter
--- OUTSIDE RECORDS SUMMARY | 2021-11-01 11:33 | XMS_ITS | Encounter Summary ---
:1990 Author [facility] Address [address] [place] [address] Care Team Providers Name Role Phone Adeline Kaelyn Plata PA-C Primary Care Provider Reason for Visit Reason Comments Other Encounter Details Date Type Department Care Team Description 10/05/2005 Telephone Estela Ulrich LPN Other Obstetrics/Gynecolog y [address] [place] [address] Social History Tobacco Use Types Packs/Day Years Used Date Smoking Tobacco: Never Assessed Sex Assigned at Date Recorded Not on file documented as of this encounter Progress Notes Leann Salazar - 10/05/2005 3:06 PM CDT Phone Note filed by Leann Salazar MA at 06/03/10 4904 Author: Leann Salazar MA Service: (none) Author Type: Rubber Washer Filed: 06/03/10 0756 Note Time: 10/05/05 1506 Status: Signed Insole Department Worker: Leann Salazar MA (Rubber Washer) Prescription Refill Please provide enough refills to last until patient's next visit. Comment:[facility] Seq #:- n/a Pharmacy Name:- [facility] Street or City:- [address] [address], [place], [place] Clinician Name:- Marcos Allison Drug Name/Strength:- Zovia 1/35E Tablet Sig: Dose/Route/Freq:- Take 1 tablet by mouth daily Quantity & Last Fill:- 28 09/07/05 Created on 05Oct2005 3:06pm by LEANN SALAZAR On 05Oct2005 5:05pm MARCOS ALLISON wrote: I sent Rx for 1 pack only to the pharm. Inform pt. that she has to get future refills directly from [facility]. Acknowledged by MARCOS ALLISON on 5:05pm On 05Oct2005 5:13pm ESTELA BARROW wrote: Patient notified of Rx. Acknowledged by ESTELA BARROW on 5:13pm [employer] documented in this encounter Plan of Treatment Not on filedocumented as of this encounter Visit Diagnoses Not on filedocumented in this encounter Care Teams Commercial Electrician Relationship Specialty Start Date End Date Kaelyn Lr PA-C PCP - General 05/18/10 06/05/13 [address] [facility] [address] [place] [address] documented as of this encounter
--- OUTSIDE RECORDS SUMMARY | 2021-11-01 11:33 | XMS_ITS | Encounter Summary ---
:1990 [facility] Address [address] [place] [address] Care Team Providers Name Role Phone Kaelyn Lr PA-C Primary Care Provider Encounter Details Date Type Department Care Team Description 03/31/2006 PN Conversion Only [facility] [address] [address] [place] [address] Social History Tobacco Use Types Packs/Day Years Used Date Smoking Tobacco: Never Assessed Sex Assigned at Date Recorded Not on file documented as of this encounter Plan of Treatment Not on filedocumented as of this encounter Visit Diagnoses Not on filedocumented in this encounter Care Teams Refined Syrup Operator Relationship Specialty Start Date End Date Kaelyn Lr PA-C PCP - General 05/18/10 06/05/13 [address] [facility] [address] [place] [address] documented as of this encounter
--- OUTSIDE RECORDS SUMMARY | 2021-11-01 11:33 | XMS_ITS | Encounter Summary ---
:1990 Author Organization [facility] Address [address] [place] [address] Care Team Providers Name Role Phone AdelineEverettmallroie Plata PA-C Primary Care Provider Encounter Details Date Type Department Care Team Description 04/21/2004 Office Visit [facility] [address] Ear, Nose, Siobhan Walden MD and Throat [address] [facility] [address] [place], [place] [address] Social History Tobacco Use Types Packs/Day Years Used Date Smoking Tobacco: Never Assessed Sex Assigned at Date Recorded Not on file documented as of this encounter Progress Notes Siobhan Walden MD - 04/21/2004 12:01 AM CST Progress Notes signed by Siobhan Walden MD at 04/23/04 1301 Author: Siobhan Walden MD Service: (none) Author Type: Physician Filed: 06/06/10 0441 Note Time: 04/21/04 0001 Status: Signed Water Team Leader: Siobhan Walden MD (Physician) NAME: DESTINI TORREZ MR: [id number] ACCT: [id number] VISIT: [id number] DICTATING CLINICIAN: SIOBHAN WALDEN MD JOB: [id number] CLINIC PROGRESS NOTE DATE OF VISIT: 04/21/2004 SUBJECTIVE: Destini is post op endoscopic sinus surgery. The patient had bilateral endoscopic ethmoidectomy, maxillary sinusotomy and right endoscopic sphenoidotomy. Her post operative course has been uneventful. OBJECTIVE: The merocele packs were removed from the nose on both sides after irrigating with saline. Subjectively the patients airway seemed to be fine. She was instructed in saline irrigations and asked to return in 3-4 weeks for follow up evaluation. Path report showed inflammatory changes in the mucosa of the submitted specimens, right and left middle meatus. 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 In addition, the patient had a adenoidectomy procedure performed because of persistent lymphoid tissue in the nasopharynx. PLAN: Follow up within one month. MLS:[id number] C: 04/22/04 10:22 DOCUMENT: [id number] TING TRADES WORKER documented in this encounter Plan of Treatment Not on filedocumented as of this encounter Visit Diagnoses Not on filedocumented in this encounter Care Teams Welding Machine Operator Electro Gas Relationship Specialty Start Date End Date Kaelyn Lr PA-C PCP - General 05/18/10 06/05/13 [address] [facility] [address] [place] [address] documented as of this encounter
--- OUTSIDE RECORDS SUMMARY | 2021-11-01 11:33 | XMS_ITS | Encounter Summary ---
:1990 Author Organization [facility] Address [address] [place] [address] Care Team Providers Name Role Phone Adeline Kaelyn Plata PA-C Primary Care Provider Encounter Details Date Type Department Care Team Description 04/08/2004 PN Conversion Only [facility] CON[facility]SIO N Sneha Anderson, [address] [facility] [place] [address] [facility] [address] [place] [address] (Wo rk) Social History Tobacco Use Types Packs/Day Years Used Date Smoking Tobacco: Never Assessed Sex Assigned at Date Recorded Not on file documented as of this encounter Plan of Treatment Not on filedocumented as of this encounter Procedures Procedure Name Priority Date/Time Associated Comments Diagnosis DIFFERENTIAL MANUAL Routine 04/08/2004 6:14 PM Re sults for this MORTGAGE SALES MANAGER procedure are i n the results section. IRON (NO IBC OR SAT) Routine 04/08/2004 6:14 PM R esults for this MORTGAGE SALES MANAGER procedure are i n the results section. APTT (ACTIVATED PARTIAL Routine 04/08/2004 6:14 PM Results for this THROMBOPLASTIN TIME MORTGAGE SALES MANAGER procedur e are in the results section. COMPLETE BLOOD COUNT-NO Routine 04/08/2004 6:14 PM Results for this DIFF MORTGAGE SALES MANAGER procedure are i n the results section. INR/PROTIME Routine 04/08/2004 6:14 PM Results f or this MORTGAGE SALES MANAGER procedure are i n the results section. documented in this encounter Results INR/Protime (04/08/2004 6:14 PM MORTGAGE SALES MANAGER) Analysis Performed At Patho logist Time Signature Prothrombin Time 9.5 8.9 - 11.1 HP CONVERSIO N sec INR 1.0 No normal HP CONVERSION range Comment: Recommendations for INR in warfarin ther apy: (Chest, Vol. 119, No. 1, Feb 2000, Suppl ement). Prevention and treatment of venous throm bosis; ? INR 2.0-3.0 Treatment of PE; Prevention of systemic embolism due to prosthetic tissue heart valves, b ileaflet mechanical valves in the aortic position , acute ME, valvular heart disease and atrial fibril lation. Mechanical prosthetic valves, (high risk ). ? INR 2.5-3.5 Prevention of recurrent myocardial infar ct. These recommended ranges serve as guidel papi. Adjustment outside these ranges may be clinically indicated. Specimen (Source) Anatomical Collection Method Collection Time Re ceived Time Location / / Volume Laterality 04/08/2004 6:14 PM MORTGAGE SALES MANAGER Sneha Anderson MD LAB_1 Performing Organization Address City/State/ZIP Code Phon e Number HP CONVERSION Complete Blood Count-No Diff (04/08/2004 6:14 PM MORTGAGE SALES MANAGER) P athologist Signature White Blood Cell 5.4 4.5 - 13.0 HP CONVERSIO N Count K/cmm Red Blood Cell 4.72 4.10 - HP CONVERSION Count 5.10 m/cmm Hemoglobin 14.4 12.0 - HP CONVERSION 16.0 gm/dL Hematocrit 41.7 36.0 - HP CONVERSION 46.0 % Mean Corpuscular 88.4 78.0 - HP CONVERSION Volume 100.0 fl Mean Corpuscular 30.4 24.0 - HP CONVERSION Hemoglobin 34.0 pg Mean Corpuscular 34.4 32.0 - HP CONVERSION Hemoglobin Conc 36.5 gm/dL [place] RDW 11.6 11.0 - HP CONVERSION 15.0 % Platelet Count 255 150 - 450 HP CONVERSION k/cmm Specimen (Source) Anatomical Collection Method Collection Time Re ceived Time Location / / Volume Laterality 04/08/2004 6:14 PM MORTGAGE SALES MANAGER Sneha Anderson MD LAB_1 Performing Organization Address City/[facility]/ZIP Code Phon e Number HP CONVERSION (ABNORMAL) Differential Manual (04/08/2004 6:14 PM MORTGAGE SALES MANAGER) [employer] Method Time Signature Neutrophils 71 (H) 34 - 64 % HP CONVERSION Bands 2 (L) 5 - 11 % HP CONVERSION Lymphocytes 24 (L) 25 - 45 % HP CONVERSION Monocyte 2 (L) 3 - 12 % HP CONVERSION Eosinophils 1 0 - 3 % HP CONVERSION Platelet Normal No normal HP CONVERSION Estimate range RBC Morphology Normal No normal HP CONVERSION range Comment: RBC's appear normochromic and n ormocytic. Specimen (Source) Anatomical Collection Method Collection Time Re ceived Time Location / / Volume Laterality 04/08/2004 6:14 PM MORTGAGE SALES MANAGER Sneha Anderson MD LAB_1 Performing Organization Address [facility] Phon e Number HP CONVERSION APTT (Activated Partial Thromboplastin Time) (04/08/2004 6:14 PM MORTGAGE SALES MANAGER) [employer] Method Time Signature Partial 26.9 22.3 - HP CONVERSION Thromboplastin Time 29.3 sec Specimen (Source) Anatomical Collection Method Collection Time Re ceived Time Location / / Volume Laterality 04/08/2004 6:14 PM MORTGAGE SALES MANAGER Sneha Anderson MD LAB_1 Performing Organization Address City/[facility] Code Phon e Number HP CONVERSION (ABNORMAL) Iron (no IBC or Sat) (04/08/2004 6:14 PM MORTGAGE SALES MANAGER) athologist Signature Iron, Serum 31 (L) 50 - 165 HP CONVERSION ug/dL Specimen (Source) Anatomical Collection Method Collection Time Re ceived Time Location / / Volume Laterality 04/08/2004 6:14 PM MORTGAGE SALES MANAGER Sneha Anderson MD LAB_1 Performing Organization Address City/[facility]/ZIP Code Phon e Number HP CONVERSION documented in this encounter Visit Diagnoses Not on filedocumented in this encounter Care Teams Supervisor Cutting And Sewing Room Relationship Specialty Start Date End Date Kaelyn Lr PA-C PCP - General 05/18/10 06/05/13 [address] [facility] [address] [place] [address] documented as of this encounter
--- OUTSIDE RECORDS SUMMARY | 2021-11-01 11:33 | XMS_ITS | Encounter Summary ---
:1990 Author Organization [facility] Address [address] [place] [address] Care Team Providers Name Role Phone Adeline Kaelyn Plata PA-C Primary Care Provider Reason for Visit Reason Comments Other Encounter Details Date Type Department Care Team Description 12/09/2006 Telephone Lyn Abdul, Other Obstetrics/Gynecolog y JAVA TECH LEAD, WINE CONSULTANT [address] [place] [address] [place] [address] (Wo rk) Social History Tobacco Use Types Packs/Day Years Used Date Smoking Tobacco: Never Assessed Sex Assigned at Date Recorded Not on file documented as of this encounter Progress Notes Center, Message - 12/09/2006 11:06 AM CDT Phone Note filed by [email or web address] at 06/04/10719 Author: [email or web address] Service: (none) Author Type: (none) Filed: 06/04/10719 Note Time: 12/09/06 1106 Status: Signed Clinical Account Manager: [email or web address] Prescription Refill Please provide enough refills to last until patient's next visit. Comment:- last visit 11/17/05 Pharmacy Seq #:- n/a Pharmacy Name:- [facility] Street or City:- [address] [place] Clinician Name:- Marcos Allison Drug Name/Strength:- Zovia 35E Tablet Sig: Dose/Route/Freq:- Take 1 tablet by mouth daily Quantity & Last Fill:- 10/15/06 Created on 09Dec2006 11:06am by NANCIE LONDON On 09Dec2006 1:03pm LYN ALLEN wrote: Prescription was oaky Acknowledged by LYN ALLEN on 1:03pm SION OPERATOR documented in this encounter Plan of Treatment Not on filedocumented as of this encounter Visit Diagnoses Not on filedocumented in this encounter Care Teams Wellhead Pumper Relationship Specialty Start Date End Date Kaelyn Lr PA-C PCP - General 05/18/10 06/05/13 [address] [facility] [address] [place], [place] [address] documented as of this encounter
--- OUTSIDE RECORDS SUMMARY | 2021-11-01 11:33 | XMS_ITS | Encounter Summary ---
:1990 Author Organization [facility] Address [address] [place] [address] Care Team Providers Name Role Phone Adeline Kaelyn Plata PA-C Primary Care Provider Reason for Visit Reason Comments Other Encounter Details Date Type Department Care Team Description 01/14/2005 Telephone [employer] Maryanne Rodriguez MA Other Obstetrics/Gynecolog y [address] [place] [address] Social History Tobacco Use Types Packs/Day Years Used Date Smoking Tobacco: Never Assessed Sex Assigned at Date Recorded Not on file documented as of this encounter Progress Notes Jazz Gresham - 01/14/2005 9:31 AM CST Phone Note filed by Jazz Gresham RN at 06/02/102243 Author: Jazz Gresham RN Service: (none) Author Type: Registered Nurse Filed: 06/02/102243 Note Time: 01/14/05930 Status: Signed Wharfinger Chief: Jazz Gresham RN (Registered Nurse) MESSAGE TO CARE TEAM NAME OF CALLER:Jody-Mom NAME OF CLINICIAN:Gwnedolyn Cardoso MESSAGE:Destini is on Zovia for irregular periods. Her rx has and Mom is asking what needs to be done to have it renewed. Destini has an appt. in Peds on 01/21 for labs, has low iron. They were concerned about if she needs a pelvic exam done. PHARMACY NAME: [facility] PHONE #:[phone] CALL BACK PHONE #:[phone] BEST TIME TO CALL BACK: Is it OK to leave detailed message on voicemail? Created on 14Jan2005 9:31am by JAZZ GRESHAM On 14Jan2005 12:18pm PEDRO CARDOSO wrote: Spoke with Mother, she stated that Destini is doing well on Zovia. Prescription was called into the pharmacy. Pt mother would also like Destini to have her ferrtin, Hgb and iron levels checked. Mother will call for lab appointment. PLAN: Ferttin,Iron, Hgb (code:280.9) Acknowledged by PEDRO CARDOSO on 12:18pm On 14Jan2005 4:39pm MARYANNE RODRIGUEZ wrote: lab sheet sent to lab as directed above Acknowledged by MARYANNE RODRIGUEZ on 4:39pm ETIC AGENT documented in this encounter Plan of Treatment Not on filedocumented as of this encounter Visit Diagnoses Not on filedocumented in this encounter Care Teams Orthopaedic Nurse Relationship Specialty Start Date End Date Kaelyn Lr PA-C PCP - General 05/18/10 06/05/13 [address] [facility] [address] [place] [address] documented as of this encounter
--- OUTSIDE RECORDS SUMMARY | 2021-11-01 11:33 | XMS_ITS | Encounter Summary ---
:1990 [facility] Address [address] [place] [address] Care Team Providers Name Role Phone Adeline Kaelyn Plata PA-C Primary Care Provider Encounter Details Date Type Department Care Team Description 11/25/2006 Office Visit [facility] [place] [address] [place] [address] Social History Tobacco Use Types Packs/Day Years Used Date Smoking Tobacco: Never Assessed Sex Assigned at Date Recorded Not on file documented as of this encounter Last Filed Vital Signs Vital Sign Reading Time Taken Comments Blood Pressure 115/65 11/25/2006 6:26 PM CDT Pulse 76 11/25/2006 6:26 PM CDT Temperature 36.7 ??C (98.1 ??F) 11/25/2006 6:26 PM CDT C: 36 .7 C Respiratory Rate 16 11/25/2006 6:26 PM CDT Oxygen Saturation - - Inhaled Oxygen Concentration - - Weight 67.1 kg (147 lb 15.9 oz) 11/25/2006 6:26 PM CDT C: 67.1kg Height - - Body Mass Index - - documented in this encounter Progress Notes Bailee Hightower MD - 11/25/2006 12:01 AM CDT Progress Notes signed by Bailee Hightower MD at 12/17/06 1056 Author: Bailee Hightower MD Service: (none) Author Type: Physician Filed: 06/06/10 2338 Note Time: 11/25/06 0001 Status: Signed Tool And Die Maker/Designer: Bailee Hightower MD (Physician) NAME: DESTINI TORREZ MR#: [id number] ACCT: [id number] VISIT: [id number] DICTATING CLINICIAN: BAILEE HIGHTOWER MD JOB: [id number] LOC: 520 CLINIC PROGRESS NOTE DATE OF VISIT: 11/25/2006 SUBJECTIVE: A 16-year-old female comes in accompanied by her mother because of concern for sinus infection. Has had nasal congestion for 1 week. Nasal drainage has been green in color. Has had some headache and some facial pressure. Does have a marked cough. Denies any obvious fevers. She does get sinus infections. No history of allergy symptoms at this time of the year. PAST MEDICAL HISTORY: Healthy. MEDICATIONS: Reviewed in LastWord. ADR/ALLERGIES: NONE. OBJECTIVE: VS: BP: 150/65. T: 98. P: 76. R: 16. Exam shows patient looking great. Her nose is always congested. She feels tenderness over the maxillary sinuses. Ears look normal. NECK: Supple, no lymph nodes palpable. LUNGS: Are clear. CARDIOVASCULAR: Regular rhythm and rate; normal S1, S2. ASSESSMENT: 1. URI. 2. Sinus pressure with possible sinusitis. PLAN: Her mother says that amoxicillin may not work for her and they prefer to have Augmentin which was given to her 875 mg p.o. b.i.d. for 10 days. Symptomatic treatment for congestion recommended. They do have Nasonex at home which was advised to use. Should be rechecked if worsening or no improvement. [id number] C: 11/26/06 19:49 DOCUMENT: [id number] documented in this encounter Plan of Treatment Not on filedocumented as of this encounter Visit Diagnoses Not on filedocumented in this encounter Care Teams Bottle Gauger Relationship Specialty Start Date End Date Kaelyn Lr PA-C PCP - General 05/18/10 06/05/13 [address] [facility] [address] [place] [address] documented as of this encounter
--- OUTSIDE RECORDS SUMMARY | 2021-11-01 11:33 | XMS_ITS | Encounter Summary ---
:1990 Author Organization [facility] Address [address] [place] [address] Care Team Providers Name Role Phone Adeline Kaelyn Plata PA-C Primary Care Provider Encounter Details Date Type Department Care Team Description 04/08/2004 Office Visit [facility] [place] [address] [facility] [address] [place] [address] [place] [address] [phone] (Wo rk) Social History Tobacco Use Types Packs/Day Years Used Date Smoking Tobacco: Never Assessed Sex Assigned at Date Recorded Not on file documented as of this encounter Progress Notes Meche Anderson MD - 04/08/2004 12:01 AM CST Progress Notes signed by Meche Anderson MD at 05/15/04 1846 Author: Meche Anderson MD Service: (none) Author Type: Physician Filed: 06/06/10 0426 Note Time: 04/08/04 0001 Status: Signed Tenderizer Tender: Meche Anderson MD (Physician) NAME: DESTINI TORREZ MR: [id number] ACCT: [id number] VISIT: [id number] DICTATING CLINICIAN: MECHE ANDERSON MD JOB: [id number] CLINIC PROGRESS NOTE DATE OF VISIT: 04/08/2004 SUBJECTIVE: Destini is a 13-year-old who is here for a preop. See preop form. OBJECTIVE: ASSESSMENT: PLAN: Okay for surgery. ED:[id number] C: 05/14/04 10:49 DOCUMENT: [id number] L RULE DIE MAKER documented in this encounter Plan of Treatment Not on filedocumented as of this encounter Visit Diagnoses Not on filedocumented in this encounter Care Teams Freight Solicitor Relationship Specialty Start Date End Date Kaelyn Lr PA-C PCP - General 05/18/10 06/05/13 [address] [facility] [address] [place] [address] documented as of this encounter
--- OUTSIDE RECORDS SUMMARY | 2021-11-01 11:33 | XMS_ITS | Encounter Summary ---
:1990 Author Organization [facility] Address [address] [place] [address] Care Team Providers Name Role Phone Adeline Kaelyn Plata PA-C Primary Care Provider Encounter Details Date Type Department Care Team Description 04/10/2004 Office Visit [facility] [place] [address] [facility] [address] [place] [address] [place] [address] [phone] (Wo rk) Social History Tobacco Use Types Packs/Day Years Used Date Smoking Tobacco: Never Assessed Sex Assigned at Date Recorded Not on file documented as of this encounter Progress Notes Meche Anderson MD - 04/10/2004 12:01 AM CST Progress Notes signed by Meche Anderson MD at 05/15/04 1853 Author: Meche Anderson MD Service: (none) Author Type: Physician Filed: 06/06/10 0430 Note Time: 04/10/04 0001 Status: Signed Plasma Specialist: Meche Anderson MD (Physician) NAME: DESTINI TORREZ MR: [id number] ACCT: [id number] VISIT: [id number] DICTATING CLINICIAN: MECHE ANDERSON MD JOB: [id number] CLINIC PROGRESS NOTE DATE OF VISIT: 04/10/2004 SUBJECTIVE: Destini is a 13-year-old who is here for a preop shingle. See form. OBJECTIVE: ASSESSMENT: Okay for surgery. PLAN: ED:[id number] C: 05/14/04 09:21 DOCUMENT: [id number] DYER RECESSED VAT documented in this encounter Plan of Treatment Not on filedocumented as of this encounter Visit Diagnoses Not on filedocumented in this encounter Care Teams Gear Keeper Relationship Specialty Start Date End Date Kaelyn Lr PA-C PCP - General 05/18/10 06/05/[address] [facility] [address] [place] [address] documented as of this encounter
--- OUTSIDE RECORDS SUMMARY | 2021-11-01 11:33 | XMS_ITS | Encounter Summary ---
:1990 Author Organization [facility] Address [address] [place] [address] Care Team Providers Name Role Phone Adeline Kaelyn Plata PA-C Primary Care Provider Reason for Visit Reason Comments Other Encounter Details Date Type Department Care Team Description 10/30/2005 Telephone Lyn Abdul, Other Obstetrics/Gynecolog y WILDLAND FIRE OPERATIONS SPECIALIST, VAT HOUSE LABORER [address] [place] [address] [place] [address] (Wo rk) Social History Tobacco Use Types Packs/Day Years Used Date Smoking Tobacco: Never Assessed Sex Assigned at Date Recorded Not on file documented as of this encounter Progress Notes Center, Message - 10/30/2005 9:07 AM CDT Phone Note filed by ActivIdentity at 06/03/10 0852 Author: ActivIdentity Service: (none) Author Type: (none) Filed: 06/03/10 0852 Note Time: 10/30/05906 Status: Signed Cellophane Worker: ActivIdentity One mth. of Zovia with no refills was called to [facility]. Pt has an appt sched. 10-03-06 with you. Created on 30Oct2005 9:07am by SANTOS DANG AND OIL CHECKER documented in this encounter Plan of Treatment Not on filedocumented as of this encounter Visit Diagnoses Not on filedocumented in this encounter Care Teams Systems Development Manager Relationship Specialty Start Date End Date Kealyn Lr PA-C PCP - General 05/18/10 06/05/13 [address] [facility] [address] [place] [address] documented as of this encounter
--- OUTSIDE RECORDS SUMMARY | 2021-11-01 11:33 | XMS_ITS | Encounter Summary ---
:1990 Author Organization [facility] Address [address] [place] [address] Care Team Providers Name Role Phone AdelineKaelyn Boni CHARLES Primary Care Provider Encounter Details Date Type Department Care Team Description 05/20/2004 Office Visit [facility] [place] [address] [place] [address] Social History Tobacco Use Types Packs/Day Years Used Date Smoking Tobacco: Never Assessed Sex Assigned at Date Recorded Not on file documented as of this encounter Progress Notes Siobhan Walden MD - 05/20/2004 12:01 AM CDT Progress Notes signed by Siobhan Walden MD at 06/12/04 1400 Author: Siobhan Walden MD Service: (none) Author Type: Physician Filed: 06/06/10 0515 Note Time: 05/20/04 0001 Status: Signed Coal Pulverizer Operator: Siobhan Walden MD (Physician) NAME: DESTINI TORREZ MR: [id number] ACCT: [id number] VISIT: [id number] DICTATING CLINICIAN: SIOBHAN WALDEN MD JOB: [id number] CLINIC PROGRESS NOTE DATE OF VISIT: 05/20/2004 SUBJECTIVE: : 1990. Destini is postop endoscopic sinus surgery, about five weeks ago. The patient is having minimal crusting and bleeding, she is really not irrigating her nose with saline in a regular fashion, and she is not on any of the prescription nasal sprays. The patient continues to complain of a headache problem in the medial canthal area. OBJECTIVE: The patient was cooperative. She did not appear to be in any distress. There was no facial erythema or edema. The nasal exam was accomplished with nasal specula and with the 0-degree 2.7 mm endonasal telescope. It revealed some erythema to the mucosa of the inferior turbinates, to a lesser degree of the middle turbinates. There were no large crusts present, in the middle meatus, on either side. The ostia, into the left maxillary sinus, could be seen, but I could not see it on the right side just because of the shape of the middle turbinate. The nasopharynx, itself, appeared to be clear. ASSESSMENT: A. Chronic sinusitis. B. Headache problem. PLAN: The patient is instructed to increase the frequency of her saline irrigations, and she was given a prescription for Nasonex spray. In this case, I think it would probably helpful to get an MRI scan of the brain to make sure that we are not dealing with any intracranial pathology as the source for her headaches. We will make that arrangement. Follow up with Dr. Anderson, assuming that the MRI scan is normal. If the MRI scan is normal, then neurological consultation would certainly, possibly, be helpful. MLS:[id number] C: 05/21/04 11:23 DOCUMENT: [id number] documented in this encounter Plan of Treatment Not on filedocumented as of this encounter Visit Diagnoses Not on filedocumented in this encounter Care Teams Security Analyst Relationship Specialty Start Date End Date Kaelyn Lr PA-C PCP - General 05/18/10 06/05/13 [address] [facility] [address] [place] [address] documented as of this encounter
--- OUTSIDE RECORDS SUMMARY | 2021-11-01 11:33 | XMS_ITS | Encounter Summary ---
:1990 Author Organization [facility] Address [address] [place] [address] Care Team Providers Name Role Phone Kaelyn Lr PA-C Primary Care Provider Encounter Details Date Type Department Care Team Description 03/22/2007 PN Conversion [place] [address] [address] [place] [address] [place] [address] Social History Tobacco Use Types Packs/Day Years Used Date Smoking Tobacco: Never Assessed Sex Assigned at Date Recorded Not on file documented as of this encounter Plan of Treatment Not on filedocumented as of this encounter Visit Diagnoses Not on filedocumented in this encounter Care Teams Healthcare Liaison Relationship Specialty Start Date End Date Kaelyn Lr PA-C PCP - General 05/18/10 06/05/13 [address] [facility] [address] [place] [address] documented as of this encounter
--- OUTSIDE RECORDS SUMMARY | 2021-11-01 11:33 | XMS_ITS | Encounter Summary ---
:1990 Author Organization [facility] Address [address] [place] [address] Care Team Providers Name Role Phone Kaelyn Lr PA-C Primary Care Provider Encounter Details Date Type Department Care Team Description 04/16/2004 PN Conversion Only CONV EAR NOSE THROAT Nael Walden MD [address] [place] [address] Social History Tobacco Use Types Packs/Day Years Used Date Smoking Tobacco: Never Assessed Sex Assigned at Date Recorded Not on file documented as of this encounter Plan of Treatment Not on filedocumented as of this encounter Visit Diagnoses Not on filedocumented in this encounter Care Teams Elementary School Teacher'S Aide Relationship Specialty Start Date End Date Kaelyn Lr PA-C PCP - General 05/18/10 06/05/13 [address] [facility] [address] [place], [place] [id number] documented as of this encounter
--- OUTSIDE RECORDS SUMMARY | 2021-11-01 11:33 | XMS_ITS | Encounter Summary ---
:1990 Author Organization [facility] Address [address] [place] [address] Care Team Providers Name Role Phone Adeline Kaelyn Plata PA-C Primary Care Provider Encounter Details Date Type Department Care Team Description 01/14/2005 PN Conversion Only HOWIE CONVERSLyn Siegel [address] [facility] J, INTERVENTION SPECIALIST, [place] [address] [facility] [place] [id number] (Wo rk) Social History Tobacco Use Types Packs/Day Years Used Date Smoking Tobacco: Never Assessed Sex Assigned at Date Recorded Not on file documented as of this encounter Plan of Treatment Not on filedocumented as of this encounter Procedures Procedure Name Priority Date/Time Associated Diagnosis Comme nts IRON (NO IBC OR Routine 01/14/2005 4:38 PM Result s for this SAT) BAND ATTACHER procedure are i n the results section. HEMOGLOBIN, BLOOD Routine 01/14/2005 4:38 PM Resu lts for this BAND ATTACHER procedure are i n the results section. FERRITIN Routine 01/14/2005 4:38 PM Results f or this BAND ATTACHER procedure are i n the results section. documented in this encounter Results Ferritin (01/14/2005 4:38 PM BAND ATTACHER) P athologist Signature Ferritin Serum 17 10 - 291 HP CONVERSION ng/mL Specimen (Source) Anatomical Collection Method Collection Time Re ceived Time Location / / Volume Laterality 01/14/2005 4:38 PM BAND ATTACHER Lyn Cardoso APRN, [facility] Performing Organization Address City/[facility]/ZIP Code Phon e Number HP CONVERSION Hemoglobin, Blood (01/14/2005 4:38 PM BAND ATTACHER) athologist Signature Hemoglobin 14.9 12.0 - 16.0 HP CONVERSION gm/dL Specimen (Source) Anatomical Collection Method Collection Time Re ceived Time Location / / Volume Laterality 01/14/2005 4:38 PM BAND ATTACHER Lyn Cardoso APRN, [facility] Performing Organization Address [facility] Code Phon e Number HP CONVERSION Iron (no IBC or Sat) (01/14/2005 4:38 PM BAND ATTACHER) athologist Signature Iron, Serum 88 50 - 165 HP CONVERSION ug/dL Specimen (Source) Anatomical Collection Method Collection Time Re ceived Time Location / / Volume Laterality 01/14/2005 4:38 PM BAND ATTACHER Lyn Cardoso APRN, [facility] Performing Organization Address [facility] Phon e Number HP CONVERSION documented in this encounter Visit Diagnoses Not on filedocumented in this encounter Care Teams Oil Pit Attendant Relationship Specialty Start Date End Date Kaelyn Lr PA-C PCP - General 05/18/10 06/05/13 [address] [facility] [address] [place] [address] documented as of this encounter
--- OUTSIDE RECORDS SUMMARY | 2021-11-01 11:33 | XMS_ITS | Encounter Summary ---
:1990 Author Organization [employer] Address [address] [place] [address] Care Team Providers Name Role Phone Adeline Kaelyn Plata PA-C Primary Care Provider Reason for Visit Reason Comments Other Encounter Details Date Type Department Care Team Description 12/07/2006 Telephone [facility], Message Other [address] [place], [place] [id number] Social History Tobacco Use Types Packs/Day Years Used Date Smoking Tobacco: Never Assessed Sex Assigned at Date Recorded Not on file documented as of this encounter [facility], Message - 12/07/2006 9:22 AM CDT Phone Note filed by [employer] at 06/04/10707 Author: [employer] Service: (none) Author Type: (none) Filed: 06/04/10707 Note Time: 12/07/06921 Status: Signed Artist Agent: [employer] Non -Symptom Message from Front Line Caller Name/Relationship: Jody mom Primary Mental Health Clinician: Nato Message: Is is ok for Destini to give blood? She had hx of blood issue. Crowning Inspector: Best call back number: [phone] Is it OK to leave a confidential message on this voicemail? *[id number] Created on 07Dec2006 9:22am by LETTY URIBE R On 07Dec2006 9:42am JAZZ VILLAGRAN wrote: Spoke with Mom. Destini had iron defiency anemia 3 years ago due to heavy bleeding with menses. Oral contraceptives are controling the bleeding and her last hgb was normal. Asking if she can give blood. Advised that [facility] [place] [facility]. NDS WORKER documented in this encounter Plan of Treatment Not on filedocumented as of this encounter Visit Diagnoses Not on filedocumented in this encounter Care Teams Acquisition Analyst Relationship Specialty Start Date End Date Kaelyn Lr PAAngel LuisC PCP - General 05/18/10 06/05/13 [address] [facility] [address] [place] [address] documented as of this encounter
--- OUTSIDE RECORDS SUMMARY | 2021-11-01 11:33 | XMS_ITS | Encounter Summary ---
:1990 Author Organization [employer] Address [address] [place] [address] Care Team Providers Name Role Phone AdelineEverettmallorie Plata PA-C Primary Care Provider Encounter Details Date Type Department Care Team Description 03/22/2007 [place] [address] [address] [place] [address] [place] [address] Social History Tobacco Use Types Packs/Day Years Used Date Smoking Tobacco: Never Assessed Sex Assigned at Date Recorded Not on file documented as of this encounter Plan of Treatment Not on filedocumented as of this encounter Procedures Procedure Name Priority Date/Time Associated Comments Diagnosis STREP GROUP A ANTIGEN Routine 03/22/2007 5:50 PM Results for this TEST TIRE MAN procedure are i n the results section. BETA STREP FOLLOWUP Routine 03/22/2007 5:50 PM Re sults for this TIRE MAN procedure are i n the results section. MONONUCLEOSIS SCREEN Routine 03/22/2007 5:37 PM R esults for this TIRE MAN procedure are i n the results section. COMPLETE BLOOD Routine 03/22/2007 5:37 PM Results for this COUNT-W/DIFF TIRE MAN procedure are i n the results section. documented in this encounter Results Strep Group A Antigen Test (03/22/2007 5:50 PM TIRE MAN) Analysis Performed At Patho logist Time Signature Strep Group A Negative Negative HP CONVERSION Antigen Test Comment: Culture to follow. Specimen (Source) Anatomical Collection Method Collection Time Re ceived Time Location / / Volume Laterality 03/22/2007 5:50 PM TIRE MAN Mp Farah MD LAB_1 Performing Organization Address City/State/ZIP Code Phon e Number HP CONVERSION Beta Strep Followup (03/22/2007 5:50 PM TIRE MAN) P athologist Signature Strep Screen SEE TEXT HP CONVERSION Comment: Patient: DESTINI TORREZ Rapid Strep Follow up Culture ? Collected: ??[id number] ??[id number] Source: Throat ?Processed: ??[id number] ??[id number] ? V Final Report ------ ?[id number] ??1301 No beta hemolytic Strep group A isolated . Specimen (Source) Anatomical Collection Method Collection Time Re ceived Time Location / / Volume Laterality 03/22/2007 5:50 PM TIRE MAN Mp Farah MD LAB_1 Performing Organization Address City/State/ZIP Code Phon e Number HP CONVERSION Mononucleosis Screen (03/22/2007 5:37 PM TIRE MAN) Patholo gist Method Time Signature Infectious Negative Negative HP CONVERSION Mononucleosis Screen Specimen (Source) Anatomical Collection Method Collection Time Re ceived Time Location / / Volume Laterality 03/22/2007 5:37 PM TIRE MAN Mp Farah MD LAB_1 Performing Organization Address City/State/ZIP Code Phon e Number HP CONVERSION Complete Blood Count-W/Diff (03/22/2007 5:37 PM TIRE MAN) [facility] Method Time Signature White Blood Cell 10.0 3.8 - 11.0 HP CONVERSIO N Count K/cmm Red Blood Cell 4.97 4.10 - HP CONVERSION Count 5.10 m/cmm Hemoglobin 13.5 12.0 - HP CONVERSION 16.0 gm/dL Hematocrit 39.7 36.0 - HP CONVERSION 46.0 % Mean Corpuscular 80.0 78.0 - HP CONVERSION Volume 100.0 fl Mean Corpuscular 27.1 24.0 - HP CONVERSION Hemoglobin 34.0 pg Mean Corpuscular 33.9 32.0 - HP CONVERSION Hemoglobin Conc 36.5 gm/dL [place] RDW 14.9 11.0 - HP CONVERSION 15.0 % Platelet Count 262 140 - 450 HP CONVERSION k/cmm Differential Auto-Dif No normal HP CONVERSION Verify range Neutrophils 6.8 K/cmm HP CONVERSION Absolute Count Neutrophil 67.8 % HP CONVERSION Lymphocyte % 22.0 % HP CONVERSION Monocyte 7.0 % HP CONVERSION Eosinophil 2.8 % HP CONVERSION Basophil % 0.4 % HP CONVERSION Specimen (Source) Anatomical Collection Method Collection Time Re ceived Time Location / / Volume Laterality 03/22/2007 5:37 PM TIRE MAN Mp Farah MD LAB_1 Performing Organization Address City/[facility] Code Phon e Number HP CONVERSION documented in this encounter Visit Diagnoses Not on filedocumented in this encounter Care Teams Production Supervisor Trainee Relationship Specialty Start Date End Date Kaelyn Lr PA-C PCP - General 05/18/10 06/05/13 [address] [facility] [address] [place] [address] documented as of this encounter
--- OUTSIDE RECORDS SUMMARY | 2021-11-01 11:33 | XMS_ITS | Encounter Summary ---
:1990 Author Organization [facility] Address [address] [place] [address] Care Team Providers Name Role Phone Unassigned, Provider Primary Care Provider Unavailable Encounter Details Date Type Department Care Team Description 04/16/2004 Hospital Encounter CONV METH ODS Siobhan Walden MD [address] [place] [address] Social History Tobacco Use Types Packs/Day Years [...] 06/19/2003 02/21/2010 documented as of this encounter Procedure Notes Siobhan Walden MD - 04/16/2004 12:01 AM CST OR Surgeon signed by Siobhan Walden MD at 04/23/04 1300 Author: Siobhan Walden MD Service: (none) Author Type: Physician Filed: 06/06/10 7833 Note Time: 04/16/04 1433 Status: Signed Seed Packer: Siobhan Walden MD (Physician) NAME: DESTINI TORREZ MR: [id number] ACCT: [id number] AUTHENTICATING CLINICIAN: SIOBHAN WALDEN MD JOB: [id number] OPERATIVE REPORT DATE OF OPERATION: 04/16/04. 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 POSTOPERATIVE DIAGNOSIS: 1. 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 2. Adenoid hypertrophy. PROCEDURE PERFORMED: 1. Bilateral endoscopic anterior and posterior ethmoidectomy. 2. Bilateral endoscopic maxillary sinusotomy. 3. Right endoscopic sphenoidotomy. 4. Adenoidectomy. SURGEON: FINDINGS: DESCRIPTION OF OPERATION: Following a satisfactory induction of general endotracheal anesthesia after spraying the patient's nose with Afrin she was placed in the supine position on the operating table with her head turned to the right and draped in a normal fashion for sinus surgery. A throat pack was inserted. The patient's nose was examined with a 0 degree 4 mm endonasal telescope. One percent Xylocaine with 1:100,000 adrenaline was infiltrated into the lateral nasal wall in the region of the uncinate process bilaterally as well as the anteroinferior portion of the middle turbinate bilaterally. The patient was noted to have a high septal deviation on the left side, but one could still see the middle turbinate well. Four percent cocaine was placed in the middle meatus and medial to the middle turbinate bilaterally. After allowing time for hemostasis to occur the packs were removed from the right side. Using the 4 mm 0 degree endonasal telescope and a probe the middle turbinate was ??infracted?? a bit. The uncinate process was identified, it was quite long, it was retracted forward with the probe and the backbiting punch was used to remove some of the uncinate process, this was followed by taking a specimen with the Linda forceps from the mucosa of the middle meatus. After this the endonasal shaver was inserted to remove the uncinate process and open up the infundibulum. The bulla ethmoidalis was entered and the anterior ethmoid cells were opened. There was some thickened mucosa in the anterior ethmoid cells, the ground lamella was then penetrated into the posterior ethmoid cells and these were opened and aerated to the middle meatus as well. The natural ostia to the right maxillary sinus was identified with a probe and the curved suction and enlarged with a backbiting punch and with the endonasal shaver. There did not appear to be any pus in the right maxillary sinus. Attention was directed to the area medial to the middle turbinate on the right side towards the anterior aspect of the right sphenoid sinus. The right sphenoid sinus was entered in this location and this was confirmed by then placing the endonasal telescope into the middle meatus and extending the scope to the right sphenoid sinus. There was no purulent secretions in the right sphenoid sinus. The scope was removed from the right nasal cavity and the packs were then removed from the left side of the nose and the identical procedure was performed on the left side, except that the sphenoid sinus was not entered. Following completion of this surgery the middle meatus was packed with a Krishan Merocel pack bilaterally. It had been noted that on passing the endonasal telescope to the nasopharynx that there was still a significant amount of lymphoid tissue in the nasopharynx and it was, therefore, elected to remove this. The patient was placed in the anisa position and using a suction Bovie the remaining adenoid tissue was cauterized. The throat pack had been removed prior to examination of the nasopharynx and cauterization of the adenoid. Estimated blood loss during the operative procedure was less than 50 mL. Destini tolerated the surgery well, left the operating room in satisfactory condition. 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 PROCEDURES Provider1 Date Principal: EXC MAX SINUS LESION NEC ALLISONSIOBHAN Kamille 22.62 Provider2: Provider3: OMID GIL Secondary: ETHMOIDECTOMY SIOBHAN WALDEN 22.63 Provider2: Provider3: OMID GIL SPHENOIDOTOMY SIOBHAN WALDEN [id number] 22.52 Provider2: Provider3: OMID GIL ADENOIDECTOMY SIOBHAN WALDEN [id number] 28.6 Provider2: Provider3: OMID GIL GER INVESTIGATIONS documented in this encounter Plan of Treatment Not on filedocumented as of this encounter Procedures Procedure Name Priority Date/Time Associated Diagnosis Comme nts SURGICAL ROMINA SANON Routine 04/16/2004 12:42 PM R esults for this NICOLLET MANAGER INVESTIGATIONS procedure are i n the results section. documented in this encounter Results Pathology Report (04/16/2004 12:42 PM MANAGER INVESTIGATIONS) [facility] Method Time Signature Surgical SEE TEXT No normal HP CONVERSION Pathology range Comment: Patient: DESTINI TORREZ ?S URGICAL PATHOLOGY REPORT Pathology # ??[id number] ?Date Obtained: ? Date Received: DIAGNOSIS: A) ??Endonasal mucosa, right middle meat us, resected tissue: ?1. Benign endonasal mucosa and fra gments of bone, with features of chronic ? sinusitis. ?2. No evidence of vasculitis, gran uloma formation, necrosis or neoplasm. B) ??Endonasal mucosa, left middle meatu s, resected tissue: ?1. Benign endonasal mucosa and fra gments of bone, with chronic ? inflammation consistent with c hronic sinusitis. ?Kev Donohue M.D. ?(electronic signature) DAG/DAG/blm Date of Report: 04/17/04 Pathology # ??[id number] ?Date Obtained: ? Date Received: ORGAN/TISSUE SITE: ?Right middle meatal mucosa/Left mi ddle meatal mucosa GROSS DESCRIPTION: A) ??Received in formalin is a 1.0 x 1.0 x 0.2 cm aggregate of fragmented ?lopez-yellow bone admixed with blood which is filtered and submitted in toto ?in 1 block following decalcificati on. B) ??Received in formalin is a 1.1 x 0.4 x 0.1 cm irregular lopez-yellow bone ?with adherent blood which is submi tted in toto in 1 block following ?decalcification. SLS/blm MICROSCOPIC DESCRIPTION: A-B) The microscopic examination substan tiates the diagnosis cited. Specimen (Source) Anatomical Collection Method Collection Time Re ceived Time Location / / Volume Laterality 04/16/2004 12:42 PM MANAGER INVESTIGATIONS Siobhan Walden MD LAB_1 Performing Organization Address City/State/ZIP Code Phon e Number HP CONVERSION documented in this encounter Visit Diagnoses Not on filedocumented in this encounter Care Teams Import Customer Service Manager Relationship Specialty Start Date End Date Unassigned, Provider PCP - General 01/21/00 08/17/[address] [place] [address] documented as of this encounter
--- OUTSIDE RECORDS SUMMARY | 2021-11-01 11:34 | XMS_ITS | Encounter Summary ---
:1990 Author Organization [facility] Address [address] [place] [address] Care Team Providers Name Role Phone Everett Lrmallorie Plata PA-C Primary Care Provider Encounter Details Date Type Department Care Team Description 07/09/2003 PN Conversion Only Likely Dermatolo gy Radha Vernon, [address] [place] [place] [address] [facility] [phone] [place], [place] [address] (Wo rk) Social History Tobacco Use Types Packs/Day Years Used Date Smoking Tobacco: Never Assessed Sex Assigned at Date Recorded Not on file documented as of this encounter Progress Notes Radha Vernon MD - 07/09/2003 12:01 AM CDT Progress Notes signed by Radha Vernon MD at 11/14/03 7078 Author: Radha Vernon MD Service: (none) Author Type: Physician Filed: 06/05/10 4351 Note Time: 07/09/03 0001 Status: Signed Manager Ed: Radha Vernon MD (Physician) NAME: DESTINI CANO MR: [id number] ACCT: [id number] VISIT: [id number] DICTATING CLINICIAN: RADHA VERNON MD JOB: [id number] CLINIC PROGRESS NOTE DATE OF VISIT: 07/09/2003 ASSESSMENT: Benign-appearing compound nevi. PLAN: Discussed with Destini and her mom that these moles can be removed if she would like to have evaluation because of the history of dysplastic nevus on the scalp; however, clinically they appear benign. She is a little bit bothered by the mole on the central forehead and on her right upper lip. We discussed what would be involved with removal. They would like to consider it. We discussed specifically that there will be a scar and I would recommend a trial of shave removal of the mole of the central forehead and a small punch excision from the right upper lip. They will schedule a surgery time at their convenience if they decide to go ahead with removal. SUBJECTIVE: : 1990. Vaxyjceh-dill-hgo comes in with her mom for evaluation of several moles. She has been seen by Dr. Lynn in 1998, had one mole removed on her scalp that was red and dysplastic. She had several other moles removed in [address] Rivas in plastic surgery all of which were read as compound nevi. There is no family history of skin cancer or melanoma. However, Destini has noted a growth of a new mole on the right upper lip and also on the right lower eyelid. She notes that they have come on rapidly now and have stayed stable in size. She also notes a mole on her left forearm that she would like checked. She otherwise denies worrisome changes in moles, does not use tanning beds and stays out of the sun. MEDICATIONS: Zovia. ADR/ALLERGIES: NO KNOWN DRUG ALLERGIES. OBJECTIVE: On exam, she is a fair-complected, pleasant teenager in no distress. Evaluation of skin of the face, scalp, neck, both upper extremities, she declines upper body skin check today, reveal on the face the right upper lip she has a well-marginated, medium-brown, oval-shaped, very slope shouldered papule that on dermatoscopy is a benign, compound-appearing nevus. She has a similar small, about 2-mm, dome-shaped, papular nevus underneath the right eye that appears compound type on dermatoscopy. She has a benign nevus on the central forehead that is slope shouldered and dhillon brown in color, a similar mole on the left lower cheek area. On the left arm a very dhillon brown appearing, well- marginated, evenly pigmented, but slightly irregularly-bordered, slope shouldered papule that appears benign. MMB:[id number] C: 07/09/03 10:51 DOCUMENT: [id number] Phone Note, Clinician - 07/03/2003 12:01 AM CDT Phone Note filed by Clinician Phone Note at 06/03/101405 Author: Clinician Phone Note Service: (none) Author Type: Resource Filed: 06/03/101405 Note Time: 07/03/03 0001 Status: Signed Manager Ed: Clinician Phone Note (Resource) - TREATING PROVIDER: LYN TIFFANY * HOME PHONE:[phone] * SUBJECTIVE: ALLERGIES/SENSITIVITIES... See Last Word 06/15/03 CURRENT MEDICATIONS... See last word 06/15/03 PERTINENT PAST HISTORY... Healthy 07/13/99 06/15/03 ASSESSMENT: faxing of hematology records to [facility] DISPOSITION: NO DISPOSITION GIVEN PLAN: [facility] COMMENTS... pt mom was again contacted to follow up on last conversation r.e. records. Pt's mom had come in yesterday and signed consent for destini and mom was informed records were being faxed today by this nurse to # [phone]. pt's mom would like a call back from provider with other questions she has r.e. results from [facility] contact#[phone] CALL BY VICKY STEVENS LPN 07/03/2003 02:13PM [phone] ADDENDUM: ASSESSMENT ANALYST Phone Note, Clinician - 06/27/2003 12:01 AM CDT Phone Note filed by Clinician Phone Note at 06/03/101402 Author: Clinician Phone Note Service: (none) Author Type: Resource Filed: 06/03/101402 Note Time: 06/27/03 0001 Status: Signed Manager Ed: Clinician Phone Note (Resource) TO: LNY CARDOSO FROM: MARY SANCHEZ LPN [phone] * PROVIDER MESSAGE: ROUTINE * 06/27/03 10:45AM * *WITHIN 4 HOURS * MESSAGE: Pt's mom calling about phone * HOME PHONE:[phone] * message of 06/15/03 (please refer to * CONTACT PHONE:[phone] * that note)...mom is requesting an answer. please advise. SUBJECTIVE: ALLERGIES/SENSITIVITIES... See Last Word 06/15/03 CURRENT MEDICATIONS... See last word 06/15/03 PERTINENT PAST HISTORY... Healthy 07/13/99 06/15/03 WEIGHT: ASSESSMENT: lab work PLAN: DISPOSITION: NO DISPOSITION GIVEN CALL BY MARY SANCHEZ LPN 06/27/2003 10:44AM [phone] ADDENDUM: <> 06/28/2003 02:20PM by VICKY STEVENS LPN: per surya cardoso REAL ESTATE SALES AGENT: Pt's mother called pt re: Destini [phone] Discussed with hematology dept at [facility] and they recommended appt. referral OK with referral dept. ASSESSMENT ANALYST Gail Forbes PA-C - 06/19/2003 12:01 AM CDT Progress Notes signed by Gail Forbes PA-C at 06/19/03 0925 Author: Gail Forbes PA-C Service: (none) Author Type: Resource Filed: 06/05/10 2309 Note Time: 06/19/03 0001 Status: Signed Manager Ed: Gail Forbes PA-C (Resource) [facility] Acute Clinic Visit IMPRESSION: Acute Sinusitis SUBJECTIVE: Chief Complaint: Sinus pain History of Present Illness: Illness duration: 3 days Afebrile Symptoms worsening Headache No eye pain No ear pain Nasal congestion/rhinorrhea Sinus pain No sore throat No neck stiffness No cough No chest pain No shortness of breath No wheezing No nausea No vomiting No diarrhea No abdominal pain Meds This Illness: No acute medications being used Past History: No History of Respiratory Disease No history of recurrent strep throats No history of recurrent sore throats Smoking: No Adverse Drug Reactions: None Chronic Medications: entered on the paper shingle OBJECTIVE: Vital Signs recorded on paper shingle General Appearance: Well-appearing Eyes: External exam is normal bilaterally Ears: Bilateral pinnae, canals and TMs normal Nose/Sinuses: moderately congested, purulent drainage, sinuses tender to percussion Oropharynx: Normal, mucous membranes moist, tonsils symmetric without redness or exudate. Neck: Supple without significant adenopathy or thyromegaly Respiratory: Lung sounds clear to auscultation without respiratory distress Cardiac: RRR without murmur Abdomen: Abdomen not examined Skin: Skin exam normal Lab & X-Ray: None ASSESSMENT: Acute Sinusitis PLAN: Amoxicillin 500 mg. TID x 10d Oral Decongestants RTC PRN if not gradually improving Shorthand Note completed on: 06/19/03 9:19 AM Phone Note, Clinician - 06/15/2003 12:01 AM CDT Phone Note filed by Clinician Phone Note at 06/03/10 4560 Author: Clinician Phone Note Service: (none) Author Type: Resource Filed: 06/03/10 4352 Note Time: 06/15/03 0001 Status: Signed Manager Ed: Clinician Phone Note (Resource) TO: LYN CARDOSO FROM: MAGAN WHEELER RN [phone] * PROVIDER MESSAGE: ROUTINE * 06/15/03 10:09AM * *WITHIN 4 HOURS * MESSAGE: Karla Lewis calling about * HOME PHONE:[phone] * Destini. Number given to her at her * CONTACT PHONE:[phone] * daughters appt for lab at * cell, g ok ok to wait * [facility], they said they do not do * till Mon * that there. The Peds dept assist. stated that there is a open winder at [facility] that they use, and they could give you her name and number if that is what you wanted. SUBJECTIVE: ALLERGIES/SENSITIVITIES... See Last Word 06/15/03 CURRENT MEDICATIONS... See last word 06/15/03 PERTINENT PAST HISTORY... Healthy 07/13/99 06/15/03 WEIGHT: PATIENT IS NOT . PATIENT IS NOT NURSING. ASSESSMENT: question PLAN: DISPOSITION: NO DISPOSITION GIVEN CALL BY MAGAN WHEELER RN 06/15/2003 10:03AM [phone] ADDENDUM: Lyn Cardoso APRN, CNP - 06/11/2003 12:01 AM CDT Progress Notes signed by Lyn Cardoso APRN, CNP at 10/15/03 0710 Author: FERMÍN Bueno Service: (none) Author Type: Nurse Practitioner Filed: 06/05/10 2301 Note Time: 06/11/03 0001 Status: Signed Manager Ed: FERMÍN Bueno (Nurse Practitioner) NAME: DESTINI CANO MR: [id number] ACCT: [id number] VISIT: [id number] DICTATING CLINICIAN: LYN CARDOSO NP JOB: [id number] CLINIC PROGRESS NOTE DATE OF VISIT: 06/11/2003 ASSESSMENT: Irregular menses. PLAN: Discussed with patient I would like to try her on oral contraceptives for at least a three-month check. If no improvement, she is then to return to the clinic. Total time with patient was approximately 30 minutes, total education was 20 minutes. SUBJECTIVE: : 1990. The patient is a 12-year-old white female 1, para 0, who presents to the clinic today for irregular menses. The patient states that menarche began at age 12 in 09/2002. She states menses were regular once a month until February of this year at which time she has either been spotting or bleeding since that time. The patient states that she needs daily protection, having just scant spotting to bright red bleeding. Menses previously lasted anywhere from 24 to 30 days. The patient denies any cramping. States that she is getting some clots, about the size of a plum. The patient and her mother state that she was in to see Sneha Montoya at the [facility] on 05/19. At that time, a hemoglobin was done and was noted to be 11.1. TSH 1.30, PTT 26.3, PT 11.2. Explained to patient and her mother that it is not unusual for some women to have irregular menses the first year. I discussed that we could treat her with placing her on oral contraceptives or else giving her Provera. The patient has decided she would prefer to go on oral contraceptives. I discussed their use, administration, side effects, and warning signs. The patient did voice understanding. The patient states on her heavier day she is changing a pad about every 2-1/2 to 3 hours, on donor services technician days about every 4 hours. CURRENT MEDICATIONS: None. ADR/ALLERGIES: THE PATIENT HAS NO KNOWN ALLERGIES, NO LATEX ALLERGIES. The patient is a nonsmoker. OBJECTIVE: VS: BP: 100/70 left arm standard cuff. P: 68. R: 18. Ht: 5 ft. 6 in. Wt: 146. The patient is a WD, WN female, alert and oriented x3. Appears to be in no acute distress. No examination was done per patient's request. I discussed and reviewed OC use, administration, backup methods, possible warning signs and side effects. The patient did voice understanding. AC:[id number] C: 06/11/03 14:51 DOCUMENT: [id number] Lyn Cardoso, SCREEN PRINTER HELPER, OUTSIDE PLANT ENGINEER - 06/11/2003 12:01 AM CDT Phone Note signed by Lyn Cardoso APRN, CNP at 10/15/03 0713 Author: Lyn Cardoso APRN, CNP Service: (none) Author Type: Nurse Practitioner Filed: 07/09/03 0000 Note Time: 06/11/03 0001 Status: Signed Manager Ed: Lyn Cardoso APRN, CNP (Nurse Practitioner) NAME: DESTINI CANO MR: [id number] ACCT: [id number] VISIT: [id number] DICTATING CLINICIAN: LYN CARDOSO NP JOB: [id number] CLINIC PHONE CALL DATE OF PHONE CALL: 06/14/2003. : 1990. This is a phone call to patient's mother, which I had previously gotten permission from Destini to speak to her. Destini was seen on 06/11/03 for irregular heavy menstrual cycles and bleeding since 05/19. I kady a hemoglobin which was 11.8, factor VIII was 160; normal is 60 to 140, and von Willebrand's was 113, normal is 55 to 145. Because of the abnormality with the factor VIII, we will have her followup with hematology. Iron was 23 and ferritin was 3. Besides following up with the open winder, we will also have her start on multivitamin daily. Phone number to hematology was given. Mother did voice understanding. AC:[id number] C: 06/15/03 15:06 DOCUMENT: [id number] Kenny Coughlin MD - 04/25/2003 12:01 AM CST Progress Notes signed by at 05/07/03 1708 Author: Kenny Coughlin MD Service: (none) Author Type: (none) Filed: 06/05/10 2211 Note Time: 04/25/03 0001 Status: Signed Manager Ed: Cristo Jackson NAME: DESTINI CANO MR: [id number] ACCT: [id number] VISIT: [id number] DICTATING CLINICIAN: KENNY COUGHLIN MD JOB: [id number] CLINIC PROGRESS NOTE DATE OF VISIT: 04/25/2003 ASSESSMENT: Multiple nevi with history of dysplastic nevus. PLAN: We will refer the patient to dermatology for further evaluation of these lesions. We made an appointment for her with Dr. Vernon for 07/08. Patient should closely monitor these lesions and if she notices any changes she should return to clinic to see me sooner. At this point none of the moles have extremely worrisome features but certainly the fact that the dark brown, flat nevus on her lip is new within the past year or so warrants further investigation and evaluation by a fish inspector. SUBJECTIVE: Oludiyhl-irvh-yvo female presents for mole check. Patient has a history of changing moles and has had several moles removed in the past. They have all been benign although she does have a history of one dysplastic nevus in the distant past. The most concerning mole today is a flat, dark brown mole that has developed over the past several months on her right upper lip. Does seem to be very slightly increasing in size with time. No pain, tenderness or swelling. Additionally, she has a light lopez, irregularly shaped, flat mole on her left wrist, which has not been changing and finally, a small, raised, dark brown, fleshy mole beneath her right lower eyelid. PAST MEDICAL HISTORY: Healthy. MEDICATIONS: None. ADR/ALLERGIES: NO KNOWN DRUG ALLERGIES. OBJECTIVE: VS: BP: 112/68. P: 88. Wt: 145 lb. GENERAL: Awake, alert in no acute distress. SKIN: Reveals small approximately 3 to 4 mm, oval shaped, dark brown, flat nevus on the right side of her upper lip. Surrounding skin is normal. Beneath her right lower eyelid there is a small, approximately 3 mm, raised, fleshy nevus, which is mostly brown with a few punctate spots of a darker brown color with in it. Surrounding skin is normal. And finally on the left wrist there is a flat, lopez nevus that is approximately 5 to 6 mm in diameter mostly circular but does have a slightly irregular border. Surrounding skin is normal. There are various scattered nevi over the upper extremities and back, which do not appear worrisome. SMB:[id number] C: 04/26/03 09:33 DOCUMENT: [id number] documented in this encounter Plan of Treatment Not on filedocumented as of this encounter Visit Diagnoses Not on filedocumented in this encounter Care Teams Electrician Powerhouse Relationship Specialty Start Date End Date Kaelyn Lr PA-C PCP - General 05/18/10 06/05/13 [address] [facility] [address] [place] [address] documented as of this encounter
--- OUTSIDE RECORDS SUMMARY | 2021-11-01 11:34 | XMS_ITS | Encounter Summary ---
:1990 [facility] Address [address] [place] [address] Care Team Providers Name Role Phone Unassigned, Provider Primary Care Provider Unavailable Encounter Details Date Type Department Care Team Description 06/08/2000 Hospital Encounter CONV METH ODS Lu Rivas MD [address] [place] [address] [address] [facility] Lu Rivas MD [address] [place] [address] [place] [address] Social History Tobacco Use Types Packs/Day Years Used Date Smoking Tobacco: Never Assessed Sex Assigned at Date Recorded Not on file documented as of this encounter Procedure Notes Lu Rivas MD - 06/08/2000 12:01 AM CDT OR Surgeon signed by Alignable Print And at 06/09/002014 Author: Lu Rivas MD Service: (none) Author Type: Physician Filed: 06/04/10 2246 Note Time: 06/08/0003 Status: Signed Entry Level Drafter: Lu Rivas MD (Physician) NAME: DESTINI TORREZ MR#: [id number] JOB: [id number] OPERATIVE REPORT DATE OF OPERATION: 06/08/2000 DATE OF : [birth year] INDICATIONS FOR PROCEDURE: PREOPERATIVE DIAGNOSIS: Multiple scalp dysplastic nevi. POSTOPERATIVE DIAGNOSIS: Multiple scalp dysplastic nevi. PROCEDURE PERFORMED: Excision for dysplastic scalp nevi. Closure with layered repair. ANESTHESIA: IV sedation and 0.25% Marcaine. SPECIMENS (Four specimens sent): 1. Left anterior scalp. 2. Right anterior scalp. 3. Right posterior scalp. 4. Left posterior scalp. SURGEON: LON RIVAS MD FINDINGS: DESCRIPTION OF OPERATION: Patient was taken to the operating room after the areas had been marked. Areas prepped and draped in a sterile fashion. IV sedation given. A local injection given. The excisions were performed to follow hair follicles. Specimens were sent as above. They were closed with 3-0 and 4-0 Vicryl. Bacitracin was applied. She was taken to the recovery room. Total size of all lesions, 2.5 cm. 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 documented in this encounter Miscellaneous Notes Miscellaneous - Lu Rivas MD - 06/08/2000 12:01 AM CDT ICD-9-CM ICD-9-CM Narrative description Code ======== DIAGNOSES Principal: CHANDRAKANT PING SCALP/SKIN NECK 216.4 PROCEDURES Provider Date Principal: OTHER LOCAL DESTRUC SKIN LU RIVAS [id number] 86.3 Secondary: OTHER LOCAL DESTRUC SKIN LU RIVAS [id number] 86.3 OTHER LOCAL DESTRUC SKIN LU RIVAS [id number] 86.3 OTHER LOCAL DESTRUC SKIN LU RIVAS [id number] 86.3 documented in this encounter Plan of Treatment Not on filedocumented as of this encounter Procedures Procedure Name Priority Date/Time Associated Diagnosis Comme nts SURGICAL ROMINA SANON Routine 06/08/2000 9:33 AM Re sults for this NICOLLET CDT procedure are i n the results section. documented in this encounter Results Pathology Report (06/08/2000 9:33 AM CDT) [facility] gist Method Time Signature Surgical SEE TEXT No normal HP CONVERSION Pathology range Comment: Patient: DESTINI TORREZ ?S URGICAL PATHOLOGY REPORT Pathology # ??[id number] ?Date Obtained: [id number] ? Date Received: [id number] DIAGNOSIS: A-D)Compound nevi, skin designated left anterior scalp (A), right anterior ?scalp (B), right posterior scalp ( C), and left posterior scalp (D). ?Mp Sanders M.D. ?(electronic signature) TRH/TRH/cjc Date of Report: 06/09/00 Pathology # ??[id number] ?Date Obtained: [id number] ? Date Received: ORGAN/TISSUE SITE: ?Left anterior scalp/Right anterior scalp/Right posterior scalp/Left ?posterior scalp GROSS DESCRIPTION: A) ??Received in formalin is a 0.4 cm ta n pink skin punch excised to a depth of ?0.4 cm which is bisected and entir shauna submitted in one block. B) ??Received in formalin is a 0.4 cm ta n pink skin punch excised to a depth of ?0.5 cm which is inked, bisected an d entirely submitted in one block. C) ??Received in formalin is an irregula r 0.9 x 0.8 x 0.3 cm hair bearing ?portion of lopez pink skin. The epid ermis displays a well circumscribed 0.5 ?cm darkly pigmented lesion surroun ded by a rim of normal appearing ?epidermis. The tissue is inked, st ep sectioned and entirely submitted in ?one block. D) ??Received in formalin is a 0.4 cm ta n pink skin punch excised to a depth of ?0.5 cm. The tissue is inked, bisec jose r and entirely submitted in one block. SLS/todd MICROSCOPIC DESCRIPTION: A-D)Sections show skin with clusters of melanocytic cells at the ?dermoepidermal junction and within the papillary dermis. ??Varying degrees ?of chronic inflammation are presen t. ??There is no evidence of malignancy. Specimen (Source) Anatomical Collection Method Collection Time Re ceived Time Location / / Volume Laterality 06/08/2000 9:33 AM CDT Lu Rivas MD LAB_1 Performing Organization Address City/State/ZIP Code Phon e Number HP CONVERSION documented in this encounter Visit Diagnoses Not on filedocumented in this encounter Care Teams Director Decision Support Relationship Specialty Start Date End Date Unassigned, Provider PCP - General 01/21/00 08/17/07 [address] [place] [address] documented as of this encounter
--- OUTSIDE RECORDS SUMMARY | 2021-11-01 11:34 | XMS_ITS | Encounter Summary ---
:1990 Author Organization [employer] Address [address] [place] [address] Care Team Providers Name Role Phone AdelineEverettmallorie Plata PA-C Primary Care Provider Encounter Details Date Type Department Care Team Description 03/08/2002 PN Conversion Only [facility] Vini Dutton [address] [place] [address] Social History Tobacco Use Types Packs/Day Years Used Date Smoking Tobacco: Never Assessed Sex Assigned at Date Recorded Not on file documented as of this encounter Progress Notes Vini Dutton MD - 03/08/2002 12:01 AM CST Progress Notes signed by at 03/22/02 7795 Author: Vini Dutton MD Service: (none) Author Type: Physician Filed: 06/05/10 1251 Note Time: 03/08/02 0001 Status: Signed Roll Shop Supervisor: Vini Dutton MD (Physician) IMPRESSION: Sinusitis. SUBJECTIVE: Here with facial pain, mild congestion and stuffy nose and cough for two weeks, keeping her up at night. She has not had any fever. Facial pain is described in the nasal area in the cheeks adjacent a little bit to. She has a history of sinus headaches in the past, but not allergic rhinitis, although it seems that Destini may have some sneezing and itching, but it is hard to be sure from interviewing her on that. They do have pets in the home and mom smokes outdoors. OBJECTIVE: VS: T: 97.5. Wt: 118 lb. Appears somewhat sleepy but in no acute distress. Nose is 2+ congested, not grossly purulent. Eyes, ears and throat normal, no cervical adenopathy. LUNGS: Clear without crackles or wheezes. ABDOMEN: Normal, no rash noted. ASSESSMENT: Sinusitis. PLAN: As a way to cover for a possible contributing allergies, will have her take Nasonex one spray each nostril once a day for three weeks and amoxicillin 500 mg twice a day for at least ten days until better, plus a week, giving her a 20 day supply. Follow up p.r.n.. TT: CT: EK:[id number] C: 03/09/02 11:36 DOCUMENT: [id number] SELECTOR Vini Dutton MD - 10/06/2001 12:01 AM CDT Progress Notes signed by Vini Dutton MD at 11/20/01 1125 Author: Vini Dutton MD Service: (none) Author Type: Physician Filed: 06/05/10 0917 Note Time: 10/06/01 0001 Status: Signed Roll Shop Supervisor: Vini Dutton MD (Physician) IMPRESSION: Well preteen exam. SUBJECTIVE: With mom for her well 11-year exam. She has had no further fainting, although occasionally has slight chest discomfort with exertion, and remembered having an episode lasting a few seconds, about. Pain level 2-3 out of 10, she said, after looking at a pain chart with jumping rope. She does not have any shortness of breath, wheezing or coughing associated with it. Mom is a smoker, but outside. She lives at home with her mom and brothers and sisters and says the pain is substernal in location. She is getting some A's and starting 7th grade next year, and is interested in cross-country skiing for the fall. Does use helmet sometimes and wears contact lenses. Has not yet started menstrual periods. ADR/ALLERGIES: NO KNOWN ALLERGIES. Does use seatbelt. FAMILY HISTORY: Positive for a sister with scoliosis of about 23 degrees, followed on a regular basis in orthopedics. She was evaluated with a chest x-ray in February 2000, and normal EKG in August 2000, when she complained of episode of fainting. Her health teen questionnaire is negative for risk factors other than the bicycle helmet, and has otherwise been doing well. OBJECTIVE: VS: BP: 100/70, right arm, pediatric cuff. Ht: 90th percent for 63-3/4 in. Wt: 80th percent for 108 lb. She appears friendly and cooperative. SKIN: Clear. Examination of head, ears, eyes, nose and throat was normal. No cervical adenopathy, no thyromegaly appreciated. LUNGS: Clear without wheezes, crackles or distress. HEART/ABDOMEN: Normal without murmur, clicks or extra sounds and was regular. Abdomen normal without organomegaly. GENITALIA: Normal stage III female without discharge. SPINE/MUSCULOSKELETAL EXAM: Show a 4 degree left thoracic prominence. ASSESSMENT: Well preteen exam. PLAN: Mom is not sure, but might feel reassured with a cardiology evaluation, but will think about it and monitor Destini. Family history is negative for sudden cardiac problems, mom says. Will obtain informed consent for a tetanus-diphtheria today. Next well-teen exam otherwise in 3 years. Did give mom permission to call if she thought later about having her see a plastic cnc machine operator regarding her complaints. TT: CT: EK:[id number] C: DOCUMENT: [id number] Chip Mcclellan MBBS - 08/08/2001 12:01 AM CDT Progress Notes signed by Chip Uribe MD at 12/14/012037 Author: Chip Uribe MD Service: (none) Author Type: Physician Filed: 06/05/10 0755 Note Time: 08/08/01 0001 Status: Signed Roll Shop Supervisor: Chip Uribe MD (Physician) IMPRESSION: No dictation required. URI. Sinusitis. Serous otitis media. SUBJECTIVE: See URI shingle. OBJECTIVE: VS/GEN: Pertinent Findings: The bilateral TMs are clear, with clear effusion. Nasal mucosa is edematous. Maxillary sinuses are tender to palpation bilaterally. Rest of the exam is negative. ASSESSMENT: 1. URI. 2. Sinusitis. 3. Serous otitis media. PLAN: 1. Symptomatic care was discussed. 2. Increased fluids and decongestant. 3. Sinusitis handout was given. 4. Amoxicillin 500 mg p.o. t.i.d. x10 days, to be started if there is no relief in symptoms in 5-7 days time. 5. Follow up with primary care provider. Return to clinic as needed. TT: CT: RAFAEL:[id number] C: DOCUMENT: [id number] SELECTOR Vini Dutton MD - 09/25/2000 12:01 AM CDT Progress Notes signed by Vini Dutton MD at 08/09/01 1837 Author: Vini Dutton MD Service: (none) Author Type: Physician Filed: 06/05/10 0046 Note Time: 09/25/00 0001 Status: Signed Roll Shop Supervisor: Vini Dutton MD (Physician) IMPRESSION: EKG and lab results. Results of EKG and lab all received and are all normal including chemistries hemoglobin, urinalysis, electrolytes, glucose fasting, and liver and kidney function. EKG also interpreted as normal. Contacted mom at home today letting her know all was okay, and after discussion of risk factors such as watching for post ictal sleepiness, tongue biting, accidents of wetting, exercise associated syncope or during exercise, and in the absence of family history, pursuing those options if need be but will continue to observe for typical and encouraged family to encourage lots of fluids and to let me know if she should have more frequent episodes or episodes associated with exertion or seizure-like activity. Corrected Copy [facility]/14/[facility] EK:[id number] C: DOCUMENT: [id number] SELECTOR Vini Dutton MD - 09/14/2000 12:01 AM CDT Progress Notes signed by Vini Dutton MD at 08/09/01 1836 Author: Vini Dutton MD Service: (none) Author Type: Physician Filed: 06/05/10 0033 Note Time: 09/14/00 0001 Status: Signed Roll Shop Supervisor: Vini Dutton MD (Physician) IMPRESSION: Well preteen with syncopal events. SUBJECTIVE: Here for episodes of fainting. Mom reports she had two episodes of passing out. Most recently this month August 24 at [facility] while camping with her dad. The history is therefore mostly secondhand except for what Destini recalls. There has been no abnormality of her diet. She has been getting adequate fluids and eating normally. Has not started having menstrual cycles yet. She was seen on February 19 after a syncopal event after doing situps while ill with a virus. Parents are but mom does not feel Destini having any difficulty with that. Apparently gets along well with both mom and dad. She had an episode at [employer] after lunch and episodes are not normally related to not eating but occurred while standing up for long period in a choir. She feels fine afterward. Is not associated with any obvious shaking although mom thought there was some description of her head movement. She does not recall any pain, shortness of breath or palpitation. No concerns with hearing or vision. She is here primarily for a well child exam as well although the syncopal episodes have continued and mom has been very concerned and she would like evaluation performed to rule out other concerns. There is no indoor tobacco exposure. She does use a seat belt. Is doing well in school. NO KNOWN ALLERGIES. OBJECTIVE: BP: 110/68, right arm, standard cuff. Wt: 94 pounds, 75th percent. Ht: 61 inches, 90th percent. She appears soft spoken but smiles often and cooperative. Skin is clear without lesions. Head normocephalic. Neurologic exam, eyes, ears, nose, and throat all normal. No cervical adenopathy. No thyromegaly appreciated. No tremor noted. The lungs were clear. Heart regular without murmur. Abdomen normal. Genitalia declined to allow herself to be examined and denies any symptoms such as discharge, swelling, pain, rashes, etc. Spine and musculoskeletal exam were normal. ASSESSMENT: Well preteen with syncopal events. PLAN: Did have her obtain an EKG on the way home to rule out Q-T syndrome or cardiac arrhythmia and in addition will contact family with that as well as results of the urinalysis, fasting glucose, CBC, creatinine, BUN, calcium, electrolytes, AST and ALT available and feel important to realize that if she should have future episodes that she should not be encouraged to stay standing or seated such as her brother assisted at her last episode where he kept her standing or sitting and to be anticipatory regarding food intake and prolonged standing, etc. would be the primary consideration. If any seizure-like activity does develop, will need further evaluation then or is symptoms become more of a problem or more frequent or interfere with daily activities. EK:[id number] C: DOCUMENT: [id number] SELECTOR Vini Dutton MD - 06/21/2000 12:01 AM CDT Progress Notes signed by at 04/08/02 0001 Author: Vini Dutton MD Service: (none) Author Type: Physician Filed: 06/04/10 2259 Note Time: 06/21/00 0001 Status: Signed Roll Shop Supervisor: Vini Dutton MD (Physician) IMPRESSION: Cat-associated wheezing. SUBJECTIVE: Here complaining of chest discomfort and tightness of and on when she has holding the cat, which they have had for a while. The cat normally is not in her bedroom, but does not bother her when it is. She sleeps in the top bunk. There are also other pets such as a dog and gerbils in the home, but they do not apparently bother Destini. There is no associated sneezing, itching, or cough. No exercise-associated symptoms that she is aware of, but does not really do anything very strenuous it does not sound like. She was in for a cough earlier this year and a normal chest x-ray and normal sinus x-ray as well. No history of known allergies. No medications. No overt wheezing that mom has heard. Previous records do not reveal episodes of apparent wheezing, and she is due to follow up with plastic surgery for suture removal later today. OBJECTIVE: Wt: 90 pounds. GENERAL: Appears comfortable, in no acute distress. LUNGS: Reveal no wheezing, crackles, or distress, but it was several days ago that she last had trouble. ASSESSMENT: Cat-associated wheezing. PLAN: Discussed options. Considering that the symptoms are fairly transient and mild, simply would have her wash hands after playing with the cat and perhaps change clothing if the cat is sitting on her lap, to avoid having the cat in her bed or bedroom. Otherwise just observe and consider other measures if symptoms worsen or evolve. EK:[id number] C: DOCUMENT: [id number] SELECTOR Lu Rivas MD - 06/21/2000 12:01 AM CDT Progress Notes signed by Lu Rivas MD at 06/28/00 1313 Author: Lu Rivas MD Service: (none) Author Type: Physician Filed: 06/04/10 225 Note Time: 06/21/00 0001 Status: Signed Roll Shop Supervisor: Lu Rivas MD (Physician) IMPRESSION: Postoperative check. SUBJECTIVE: The patient is here for postoperative check. OBJECTIVE: The dissolving sutures were removed. Pathology revealed complete excision compound nevus. She is doing quite well. We discussed wound care. ASSESSMENT: Postoperative check. PLAN: She will return in six weeks. JUVENTINO:[id number] C: DOCUMENT: [id number] Vini Dutton MD - 05/31/2000 12:01 AM CDT Progress Notes signed by Vini Dutton MD at 08/22/00 0941 Author: Vini Dutton MD Service: (none) Author Type: Physician Filed: 06/04/10 4323 Note Time: 05/31/00 0001 Status: Signed Roll Shop Supervisor: Vini Dutton MD (Physician) IMPRESSION: Nevi SUBJECTIVE: Here for preop exam for removal of three moles occipital over vertex of scalp a week from tomorrow [facility] Dr. Lu Rivas. She has been fine on review of systems and had a previous mole removal for a suspected dysplastic nevi in August of 1998. No current symptoms. No medications. Please see preop form. OBJECTIVE: Exam normal except for nevi on scalp as noted. ASSESSMENT: N/A PLAN: Proceed with surgery. Followup p.r.n. EK:[id number] C: DOCUMENT: [id number] SELECTOR Lu Rivas MD - 03/29/2000 12:01 AM CST Progress Notes signed by Lu Rivas MD at 04/19/00 1426 Author: Lu Rivas MD Service: (none) Author Type: Physician Filed: 06/04/10 2128 Note Time: 03/29/00 0001 Status: Signed Roll Shop Supervisor: Lu Rivas MD (Physician) IMPRESSION: Dysplastic appearing nevi, scalp. SUBJECTIVE: She is being seen at the request of Dr. Crump. Destini is a patient that I took care of January of 1999. She had a dysplastic nevus removed. [facility] pathology report was benign. She is here now for two nevi at the top of her head that the mother recently noticed. She is 9 now. She thinks they have been present for several months. She is, otherwise, healthy. She takes no medications. NO KNOWN DRUG ALLERGIES. She is present today with her mother and her brother. There is no family history of malignancy but because of the history of the previously excised nevus and the changing appearance of these, it has been recommended that they be excised. OBJECTIVE: The lesions are 1 x 1.5 cm located at the superior occiput and slightly to the left lateral position of that. There is about a 2.5 cm bridge of normal tissue between the two. They are in the hair bearing scalp. There are no other nevi visible in the area in the head and neck that would require excision. We discussed that ideally they would be excised separately but because of her age and the fact that an IV sedative will be required, it does not seem well advised to do them separately because of the anesthesia. We will do them together understanding that there is a higher rate of surgical alopecia because of the tension of the wound from their close proximity. This was explained to both Destini and her mother. They understand and wish to proceed with having them both excised at the same time. They will be sent to pathology. An attempt will be made to close with sutures. ASSESSMENT: Dysplastic appearing nevi, scalp. PLAN: She will need a 10 day to two week period of limited activity and wash her hair the next day. They had no further questions. Total time 30 minutes, consultative time 25. JUVENTINO:[id number] C: DOCUMENT: [id number] SELECTOR Moody Crump MD - 03/05/2000 12:01 AM CST Progress Notes signed by Moody Crump MD at 10/24/00 3744 Author: Moody Crump MD Service: (none) Author Type: Physician Filed: 06/04/10 1657 Note Time: 03/05/00 0001 Status: Signed Roll Shop Supervisor: Moody Crump MD (Physician) IMPRESSION: Possible dysplastic nevus. Past history of same. SUBJECTIVE: Destini is a [age] year old who has past history of a dysplastic nevus of her scalp. She had seen Dr. Lynn in the spring, who found concerning nevi and was referred to Dr. Rivas in Plastic Surgery for excision of these after biopsy disclosed one to be dysplastic. On pathologic exam, there was a single dysplastic nevi. However, now in the intervening time, she has developed three more nevi of her scalp which her mother is concerned about and would like evaluated. Destini's help is otherwise excellent. MEDICATIONS: She takes no medications. ALLERGIES: NONE. OBJECTIVE: Examination of the scalp discloses three nevi, two of which are in the superior occipital region of her scalp, one of which measures approximately 5 mm in diameter and is lopez colored and has mildly vague borders. The other, which is approximately 3 mm and is adjacent to that progressing anteriorly, however, is a 3 mm, somewhat variegated, irregularly shaped, darker nevus, which is concerning for dysplastic nevus. ASSESSMENT: Possible dysplastic nevus. Past history of same. PLAN: Refer to Dr. Rivas in Plastic Surgery for excision of these nevi. She will followup if needed. PJT:[id number] C: DOCUMENT: [id number] Vini Dutton MD - 02/20/2000 12:01 AM CST Progress Notes signed by at 04/08/022237 Author: Vini Dutton MD Service: (none) Author Type: Physician Filed: 06/04/102046 Note Time: 02/20/002237 Status: Signed Roll Shop Supervisor: Vini Dutton MD (Physician) IMPRESSION: Syncope secondary to viral illness, rule out sinusitis, rule out air leak, pneumonitis. SUBJECTIVE: Here with congestion, dizziness, and complaining of chest pain and clogging, plugged up sensation in her throat and chest and associated with some trouble breathing with her cough. She also fainted after doing sit ups in gym two days ago, and mom had to go to the school to pick her up after the teacher had her lay down about an hour. She recalls feeling lightheaded and recalls her vision going dim with the episode. Has not had previous episodes of fainting or since then. She has some cough. There is no history of aspiration or choking. No fever has been noted. She was up somewhat with her cough last night. She does complain of a sore throat. HAS NO KNOWN ALLERGIES. No medications. There is no vomiting or diarrhea. Mom is concerned about chronic congestion in the morning and wonders about a sinus headache. OBJECTIVE: BP: 110/52, right arm, peds cuff. T: 97.7 by TM, is 82 pounds. Appears quiet but in no acute distress, uncomfortable appearing. Examination of the nose reveals 2+ congestion but not grossly purulent. There is no sinus tenderness. Eyes are clear. Ears are normal. Throat is normal without tonsillar or adenoidal hypertrophy apparent. There is no stridor. There is no erythema or exudate of the tonsils. There is no cervical adenopathy. Neck was supple. There was no crepitus on palpation of the neck. The lungs were clear with good air exchange without wheezes or crackles heard. Heart was regular without murmur. There was no chest wall tenderness. The abdominal exam without organomegaly or tenderness or masses. No rash was noted. Genitalia was deferred. ASSESSMENT: Syncope secondary to viral illness, rule out sinusitis, rule out air leak, pneumonitis. PLAN: Chest x-ray and Water's film of sinuses obtained and appear normal. Will treat symptomatically with fluids and rest and encouraging lots of fluids to maintain ____ pressure but would limit activities until she is back to normal as far as phy ed or vigorous physical activities, and otherwise follow up p.r.n. EK:[id number] C: DOCUMENT: [id number] SELECTOR Vini Dutton MD - 01/15/2000 12:01 AM CST Progress Notes signed by at 04/08/02 0001 Author: Vini Dutton MD Service: (none) Author Type: Physician Filed: 06/04/102013 Note Time: 01/15/00 0001 Status: Signed Roll Shop Supervisor: Vini Dutton MD (Physician) IMPRESSION: Upper respiratory infection with secondary sore throat, doubt strep. SUBJECTIVE: Destini Cano is here with two day history of sore throat. She has had a runny nose for five days and did have a little bit of a cough last night but slept okay and eating okay. Temperature has been low grade to 100 degrees. No medications. NO KNOWN ALLERGIES. No known strep exposures at school. OBJECTIVE: T: 97.1 by TM. WT: 85 pounds. She appears comfortable in no distress. Nose slightly congested. Ears, eyes, and throat all normal. No cervical adenopathy noted. Lungs clear. No rash noted. ASSESSMENT: Upper respiratory infection with secondary sore throat, doubt strep. PLAN: Because her sister had a strep screen obtained which was negative and the sister's throat was more inflamed than Destini, feel unlikely that this is strep and will just observe and treat symptomatically with rest and follow up on a p.r.n. basis. EK:[id number] C: DOCUMENT: [id number] SELECTOR Vini Dutton MD - 12/17/1999 12:01 AM CST Progress Notes signed by Vini Dutton MD at 12/12/002036 Author: Vini Dutton MD Service: (none) Author Type: Physician Filed: 06/04/101944 Note Time: 12/17/99 0001 Status: Signed Roll Shop Supervisor: Vini Dutton MD (Physician) IMPRESSION: Plantar wart. SUBJECTIVE: Destini Cano is here for cryotherapy of wart on first right toe. No medications. NO KNOWN ALLERGIES. Chart review shows that she had a well child exam about a year ago but is due for her second MMR. OBJECTIVE: Wt: 85 pounds. Appears in no distress and has a 4 to 5 mm plantar wart on the right first toe. ASSESSMENT: Plantar wart. PLAN: After soaking and paring, cryotherapy performed successfully x3 and will have them follow up with salicylic acid and may take Motrin or Tylenol for discomfort if it keeps her from sleeping tonight. Discussed contagious aspects of wart and treatment with salicylic acid products with second cryotherapy in a month if necessary. Informed consent obtained for her MMR today with next well child exam in one to two years. EK:[id number] C: DOCUMENT: [id number] SELECTOR Conversion, [facility] - 07/13/1999 12:01 AM CDT Phone Note signed by at 07/13/99 7973 Author: Imr Conversion Service: (none) Author Type: (none) Filed: 06/04/10 1714 Note Time: 07/13/99 0001 Status: Signed Roll Shop Supervisor: Imr Conversion IMPRESSION: Fever (4-17 years) nurse guideline SUBJECTIVE: PATIENT COMPLAINS OF... Fever, * HOME PHONE: [phone] * Mom calling, child developed temp earlier today. Currently 102/ax. Child alert, taking flds. No other sx. Mom has used Tylenol, wondering what Motrin dose would be. Reviewed dose per manufacturers recommendations. Reviewed alternating Tylenol with Motrin.; -Disrupted or restless sleep -Absence of other symptoms for < 3-5 days ALLERGIES/SENSITIVITIES... NKA 07/13/99 CURRENT MEDICATIONS... Tylenol prn 07/13/99 PERTINENT PAST HISTORY... Healthy 07/13/99 ASSESSMENT: Fever (4-17 years) nurse guideline DISPOSITION: HOME CARE WEIGHT: 78 PLAN: RECOMMENDED THE FOLLOWING... Referenced guideline Fever (4-17 years) nurse guideline. -Dress lightly -Encourage increased intake of clear liquids -Give acetaminophen as directed -Spongebaths with lukewarm water may offer some comfort -Observe appearance and behavior and call for advice as needed Patient information given per Fever nurse guideline. INFORMED PATIENT TO CALLBACK IF... Reasons to call back reviewed- caller verbalizes understanding of the need to call back for the following reasons: -Serious symptoms develop -Cold symptoms that are bothersome or not improving -Fever continues without other symptoms of illness for > 72 hours -Any other questions or concerns Call taken by EMI FLETCHER RN [phone] 07/13/1999 10:58 PM ADDENDUM: SELECTOR Lu Rivas MD - 09/23/1998 12:01 AM CDT Progress Notes signed by Lu Rivas MD at 09/30/98 1301 Author: Lu Rivas MD Service: (none) Author Type: Physician Filed: 06/04/10 1227 Note Time: 09/23/98 0001 Status: Signed Roll Shop Supervisor: Lu Rivas MD (Physician) IMPRESSION: Postop check. SUBJECTIVE: Destini Cano is here for a postop check. OBJECTIVE: The wounds have all healed well. Pathology report is benign. ASSESSMENT: Postop check. PLAN: She will return to see me again as needed. jjs Lu Rivas MD - 08/28/1998 12:01 AM CDT Progress Notes signed by Lu Rivas MD at 09/02/98 1545 Author: Lu Rivas MD Service: (none) Author Type: Physician Filed: 06/04/10 1202 Note Time: 08/28/98 0001 Status: Signed Roll Shop Supervisor: Lu Rivas MD (Physician) IMPRESSION: Postop check after excisions, melanocytic nevi, face. SUBJECTIVE: Destini Cano is here for a postop check. OBJECTIVE: All wounds are healing well. The one on the neck was Steri-Stripped. Pathology reveals compound melanocytic nevus of the skin in all areas. No evidence of atypia or abnormality. ASSESSMENT: Postop check. PLAN: She will keep the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 humidity. Frequent use of skin lubricants, rather than the baby lotion that Mom has been using. Recommended options such as Eucerin cream, Moisturil, or Eucerin lotion 3-4 times a day. To use [id number] 1% Cortaid; gave a prescription for 0.025% triamcinolone cream, should that not work for the worst areas, to apply sparingly qid. Topical bacitracin or Neosporin for the sores on her arm. Gave a prescription for erythromycin 400/tsp 3/4 tsp tid for up to 10 days if the spots fail to heal with the topical antibiotic over the next week. Fungal culture was obtained. rem SELECTOR Vini Dutton MD - 02/14/1996 12:01 AM CST Progress Notes signed by Vini Dutton MD at 12/14/012037 Author: Vini Dutton MD Service: (none) Author Type: Physician Filed: 06/03/102158 Note Time: 02/14/962237 Status: Signed Roll Shop Supervisor: Vini Dutton MD (Physician) IMPRESSION: No dictation required. SUBJECTIVE: N/A OBJECTIVE: N/A ASSESSMENT: N/A PLAN: N/A rem SELECTOR Conversion, [facility] - 02/12/1996 12:01 AM CST Phone Note signed by at 02/12/96 015 Author: Imr Conversion Service: (none) Author Type: (none) Filed: 06/03/102157 Note Time: 02/12/962237 Status: Signed Roll Shop Supervisor: Imr Conversion IMPRESSION: Fever (4-17 years) nurse guideline SUBJECTIVE: PATIENT COMPLAINS OF... * HOME PHONE: [phone] * Fever,; -Disrupted sleep; * CONTACT PHONE: [phone] * -VURI symptoms < 72 hours; * DAD * dad calling with child who started with fever at bedtime and now is febrile at 104 axillary. last had motrin 4 hours ago. dad wondering if he can give tylenol now. she is alert and oriented. last voided at 930pm. also had robitussin at bedtime.; ALLERGIES/SENSITIVITIES... nka 02/12/96 CURRENT MEDICATIONS... Tylenol and motrin prn. 02/12/96 PERTINENT PAST HISTORY... healthy 02/12/96 ASSESSMENT: Fever (4-17 years) nurse guideline DISPOSITION... HOME CARE PLAN: RECOMMENDED THE FOLLOWING... Referenced guideline Fever (4-17 years) nurse guideline. -Dress lightly; -Encourage increased intake of clear liquids; -Give acetaminophen as directed; -Spongebaths with lukewarm water may offer some comfort; -Observe appearance and behavior and call for advice as needed; Arrange for a follow-up call to re-evaluate symptoms if fever is high and status is questionable.; dad agreed to call back in 2 hours if fever does not decrease. will check in am in case child may need am appt.; INFORMED PATIENT... Patient information given per Fever nurse guideline.; INFORMED PATIENT TO CALLBACK IF... -Serious symptoms develop; -Cold symptoms that are bothersome or not improving; -Fever continues without other symptoms of illness for > 72 hours; -Any other questions or concerns; Call taken by NIGEL KENNY RN [phone] 02/12/1996 01:35 AM ADDENDUM: <> 02/12/1996 01:46PM by MARISSA LAURA RN: Nurse callback: Other family members have similar Sx. but her temp is higher and more persistant. Temp now 101ax has not had fever medication since 5am. Reviewed vuri and fever quideline and treatments. Encouraged to callback if sx worsen. SELECTOR Vini Dutton MD - 01/25/1995 12:01 AM CST Progress Notes signed by Vini Dutton MD at 04/09/95 4791 Author: Vini Dutton MD Service: (none) Author Type: Physician Filed: 06/03/10 0487 Note Time: 01/25/952237 Status: Signed Roll Shop Supervisor: Vini Dutton MD (Physician) IMPRESSION: Probable viral bronchitis SUBJECTIVE: Destini Cano is here with a 3-day history of sore throat and fever to 104 degrees, with some congestion. She has had a low- grade cough for the last couple of weeks. Her only medication has been Motrin. She has not had persistent headaches; the cough has not really changed much over the last few weeks. OBJECTIVE: T: 98.3 WT: 47 lb She is happy, in good spirits, alert. Nose watery. Exam is otherwise normal, including eyes, ears, throat, lungs, heart, abdomen, and skin. ASSESSMENT: Probable viral bronchitis PLAN: Will encourage liquids and expect the fever to resolve over the next 2-3 days, or will follow up. Expect that, since this is a new illness, the cough will take another 3 weeks to resolve. rem SELECTOR Conversion, [facility] - 01/24/1995 12:01 AM CST Phone Note signed by at 01/24/95 0117 Author: Imr Conversion Service: (none) Author Type: (none) Filed: 06/03/10 1817 Note Time: 01/24/95 0001 Status: Signed Roll Shop Supervisor: Imr Conversion IMPRESSION: Fever (4-17 years) nurse guideline SUBJECTIVE: PATIENT COMPLAINS OF... Fever,; * HOME PHONE:[phone] * Father states temp is 103 ax Temp * CONTACT PHONE:[phone] * at bedtime was 100.3 ax ; * Alejandro Do not call before * ALLERGIES/SENSITIVITIES... nka * 10:00 am * 01/24/95 CURRENT MEDICATIONS... Tylenol 01/24/95 PERTINENT PAST HISTORY... healthy 01/24/95 ASSESSMENT: Fever (4-17 years) nurse guideline DISPOSITION: HOME CARE WEIGHT: 48 PLAN: RECOMMENDED THE FOLLOWING... Fever (4-17 years) nurse guideline was the Guideline used. -Dress lightly; -Encourage increased intake of clear liquids; -Give acetaminophen as directed; Reviewed proper dose of tylenol ; -Observe appearance and behavior and call for advice as needed; INFORMED PATIENT... Patient information given per Fever nurse guideline.; Verbalizes understanding and agrees with phone care recommendation INFORMED PATIENT TO CALLBACK IF... -Serious symptoms develop; -Cold symptoms that are bothersome or not improving; -Fever continues without other symptoms of illness for > 2 days; CALL BY BETO PEARCE 01/24/1995 01:11AM [phone] ADDENDUM: ADDENDUM 01/24/1995 12:43PM BY MARILEE LABOY:mom states temp. of 103 continues. no sore throat. taking fluids well. no sx of resp. distress. instructed to call back if sx persist or condition worsens. home care management for fever (4-18 yr. old) reviewed. ADDENDUM 01/24/1995 05:59PM BY PAIGE GANN:Mom called to say that pt's T now is 102.4 Ax 2 hours after tylenol, and the lowest it goes is 102 Ax--asking what to do. Has had cold sx's for 2 weeks. Is taking fluids well. I recommended using Pediatric Ibuprofen and gave dose per fever guideline. Also made an appointment for tomorrow. APPOINTMENT MADE. APPOINTMENT MADE. SELECTOR Adrian Lynn MD - 01/01/1995 12:01 AM CST Progress Notes signed by Adrian Lynn MD at 01/15/95 1221 Author: Adrian Lynn Md, MD Service: (none) Author Type: Physician Filed: 06/03/10 0667 Note Time: 01/01/95 0001 Status: Signed Roll Shop Supervisor: Adrian Lynn Md, MD (Physician) IMPRESSION: Viral upper respiratory infection. SUBJECTIVE: Destini has had a runny nose and cold over the last 3 weeks. She has been coughing during that time also. She has not had an elevated fever. OBJECTIVE: T: 97.2. WT: 50 lb. PHYSICAL EXAMINATION: Ears: Right and left are both clear. Nose: Very slightly stuffy but not runny. Pharynx: Normal. Lungs are clear. No wheezing. Abdomen is soft. ASSESSMENT: N/A PLAN: Observe. Treat symptomatically. ron SELECTOR documented in this encounter Plan of Treatment Not on filedocumented as of this encounter Procedures Procedure Name Priority Date/Time Associated Comments Diagnosis STREP GROUP A ANTIGEN Routine 06/10/2001 2:53 PM Results for this TEST CDT procedure are i n the results section. BETA STREP FOLLOWUP Routine 06/10/2001 2:53 PM Re sults for this CDT procedure are i n the results section. ELECTROLYTES (NA, K, Routine 09/16/2000 8:05 AM R esults for this CL, BICARB) CDT procedure are i n the results section. GLUCOSE, WHOLE BLOOD Routine 09/16/2000 8:05 AM R esults for this POCT CDT procedure are i n the results section. URINALYSIS COMPLETE Routine 09/16/2000 8:05 AM Re sults for this CDT procedure are i n the results section. CREATININE / GFR Routine 09/16/2000 8:05 AM Resul ts for this CDT procedure are i n the results section. COMPLETE BLOOD Routine 09/16/2000 8:05 AM Results for this COUNT-W/DIFF CDT procedure are i n the results section. ALT (SGPT) Routine 09/16/2000 8:05 AM Results f or this CDT procedure are i n the results section. AST Routine 09/16/2000 8:05 AM Results f or this CDT procedure are i n the results section. CALCIUM Routine 09/16/2000 8:05 AM Results f or this CDT procedure are i n the results section. BUN Routine 09/16/2000 8:05 AM Results f or this CDT procedure are i n the results section. ANC RESULT CONVERSION Routine 02/20/2000 10:36 Re sults for this DEFAULT ORDER AM BEEF SELECTOR procedure are in the results section. ANC RESULT CONVERSION Routine 02/20/2000 10:36 Re sults for this DEFAULT ORDER AM BEEF SELECTOR procedure are in the results section. HEMOGLOBIN, BLOOD Routine 08/16/1998 11:50 Result s for this AM CDT procedure are i n the results section. CHOLESTEROL (TOTAL) Routine 08/16/1998 11:50 Resu lts for this AM CDT procedure are i n the results section. ANC RESULT CONVERSION Routine 07/11/1996 11:25 Re sults for this DEFAULT ORDER AM CDT procedure are in the results section. ANC RESULT CONVERSION Routine 07/11/1996 11:25 Re sults for this DEFAULT ORDER AM CDT procedure are in the results section. ANC RESULT CONVERSION Routine 02/03/1992 5:21 PM Results for this DEFAULT ORDER BEEF SELECTOR procedure are in the results section. documented in this encounter Results Strep Group A Antigen Test (06/10/2001 2:53 PM CDT) Analysis Performed At [facility] Time Signature Strep Group A Negative Negative HP CONVERSION Antigen Test Comment: Culture to follow. Specimen (Source) Anatomical Collection Method Collection Time Re ceived Time Location / / Volume Laterality 06/10/2001 2:53 PM CDT Vini Dutton MD LAB_1 Performing Organization Address City/State/ZIP Code Phon e Number HP CONVERSION Beta Strep Followup (06/10/2001 2:53 PM CDT) athologist Signature Strep Screen SEE TEXT HP CONVERSION Comment: Patient: DESTINI CANO Rapid Strep Follow up Culture @ ? Collected: ??[id number] ??[id number] Source: Throat ?Processed: ??[id number] ??[id number] ? 1V Final Report ------ ?[id number] ??[id number] No beta hemolytic Strep group A isolated . @ = Rapid F/U Cult Performed at ??[address] [place], [place] ?[address] Specimen (Source) Anatomical Collection Method Collection Time Re ceived Time Location / / Volume Laterality 06/10/2001 2:53 PM CDT Vini Dutton MD LAB_1 Performing Organization Address City/[facility]/ZIP Code Phon e Number HP CONVERSION (ABNORMAL) Complete Blood Count-W/Diff (09/16/2000 8:05 AM CDT) [facility] gist Method Time Signature White Blood Cell 5.4 4.5 - 13.5 HP CONVERSIO N Count K/cmm Red Blood Cell 5.21 (HH) 3.80 - HP CONVERSION Count 5.20 m/cmm Hemoglobin 15.1 (HH) 11.5 - HP CONVERSION 15.0 gm/dL Hematocrit 44.7 (HH) 33.0 - HP CONVERSION 43.0 % Mean Corpuscular 85.7 77.0 - HP CONVERSION Volume 95.0 fl Mean Corpuscular 29.0 24.0 - HP CONVERSION Hemoglobin 34.0 pg Mean Corpuscular 33.8 32.0 - HP CONVERSION Hemoglobin Conc 36.5 gm/dL [place] RDW 11.7 11.0 - HP CONVERSION 15.0 % Platelet Count 248 150 - 450 HP CONVERSION k/cmm Differential Auto-Dif No normal HP CONVERSION Verify range Neutrophils 2.4 K/cmm HP CONVERSION Absolute Count Neutrophil 43.7 % HP CONVERSION Lymphocyte % 44.3 % HP CONVERSION Monocyte Percent 8.7 % HP CONVERSION Eosinophil 3.3 % HP CONVERSION Basophil % 0.0 % HP CONVERSION Specimen (Source) Anatomical Collection Method Collection Time Re ceived Time Location / / Volume Laterality 09/16/2000 8:05 AM CDT Vini Dutton MD LAB_1 Performing Organization Address City/State/ZIP Code Phon e Number HP CONVERSION Electrolytes (NA, K, CL, Bicarb) (09/16/2000 8:05 AM CDT) P athologist Signature Sodium 139 137 - 147 HP CONVERSION meq/L Potassium 4.4 3.5 - 5.2 HP CONVERSION meq/L Chloride 100 98 - 110 HP CONVERSION meq/L Bicarbonate 31 23 - 33 HP CONVERSION mmol/L Specimen (Source) Anatomical Collection Method Collection Time Re ceived Time Location / / Volume Laterality 09/16/2000 8:05 AM CDT Vini Dutton MD LAB_1 Performing Organization Address City/State/ZIP Code Phon e Number HP CONVERSION ALT (SGPT) (09/16/2000 8:05 AM CDT) Patholo gist Method Time Signature Alanine 30 0 - 65 HP CONVERSION Aminotransferase U/L Specimen (Source) Anatomical Collection Method Collection Time Re ceived Time Location / / Volume Laterality 09/16/2000 8:05 AM CDT Vini Dutton MD LAB_1 Performing Organization Address City/State/ZIP Code Phon e Number HP CONVERSION AST (09/16/2000 8:05 AM CDT[facility] Signature Aspartate 15 0 - 45 HP CONVERSION Aminotransferase U/L Specimen (Source) Anatomical Collection Method Collection Time Re ceived Time Location / / Volume Laterality 09/16/2000 8:05 AM CDT Vini Dutton MD LAB_1 Performing Organization Address City/State/ZIP Code Phon e Number HP CONVERSION BUN (09/16/2000 8:05 AM CDT) athologist Signature Blood Urea 8 5 - 26 HP CONVERSION Nitrogen mg/dL Specimen (Source) Anatomical Collection Method Collection Time Re ceived Time Location / / Volume Laterality 09/16/2000 8:05 AM CDT Vini Dutton MD LAB_1 Performing Organization Address City/State/ZIP Code Phon e Number HP CONVERSION Calcium (09/16/2000 8:05 AM CDT) athologist Signature Calcium 10.3 8.5 - 10.5 HP CONVERSION mg/dL Specimen (Source) Anatomical Collection Method Collection Time Re ceived Time Location / / Volume Laterality 09/16/2000 8:05 AM CDT Vini Dutton MD LAB_1 Performing Organization Address City/State/ZIP Code Phon e Number HP CONVERSION Creatinine / GFR (09/16/2000 8:05 AM CDT) athologist Signature Creatinine 0.8 0.5 - 1.5 HP CONVERSION Serum mg/dL Specimen (Source) Anatomical Collection Method Collection Time Re ceived Time Location / / Volume Laterality 09/16/2000 8:05 AM CDT Vini Dutton MD LAB_1 Performing Organization Address City/State/ZIP Code Phon e Number HP CONVERSION [facility] (09/16/2000 8:05 AM CDT) athologist Signature Length Of Fast 12.0 8.0 - 24.0 HP CONVERSION Hours Bedside Blood 83 mg/dL HP CONVERSION Glucose Test Specimen (Source) Anatomical Collection Method Collection Time Re ceived Time Location / / Volume Laterality 09/16/2000 8:05 AM CDT Vini Dutton MD LAB_1 Performing Organization Address [facility] Phon e Number HP CONVERSION (ABNORMAL) Urinalysis Complete (09/16/2000 8:05 AM CDT) [facility] gist Method Time Signature Glucose, Negative Neg-Trac HP CONVERSION Qualitative U Protein Urine Negative Neg-Trac HP CONVERSION Ketones Negative Negative HP CONVERSION U BILI Negative Negative HP CONVERSION U Specific 1.025 1.005 - 25 HP CONVERSION [place] Blood Urine Negative Negative HP CONVERSION pH Urine 5.0 4.5 - 7.5 HP CONVERSION Urobilinogen Negative 0.2 - 1.0 HP CONVERSION Urine Nitrite Urine Negative Negative HP CONVERSION Leukocyte Negative Negative HP CONVERSION Esterase Urine White Blood 0-2 0 - 3 /HPF HP CONVERSION Cells Urine Red Blood Cells 0-2 0 - 3 /HPF HP CONVERSION Urine Bacteria Urine Moderate None HP CONVERSION (A) Epithelial Cells Few Few /HPF HP CONVERSION Specimen (Source) Anatomical Collection Method Collection Time Re ceived Time Location / / Volume Laterality 09/16/2000 8:05 AM CDT Vini Dutton MD LAB_1 Performing Organization Address [facility] Phon e Number HP CONVERSION Anc Result Conversion Default Order (02/20/2000 10:36 AM BEEF SELECTOR) Anatomical Region Laterality Modality Other Specimen (Source) Anatomical Location Collection Method / Collectio n Time Received Time / Laterality Volume Narrative 02/20/2000 10:36 AM BEEF SELECTOR CLINICAL DATA: ?CHRONIC CONGESTION. FINDINGS: ?PARANASAL SINUSES ARE CLEAR. ??FAC IAL BONES ARE NORMAL. ?ME [id number] TECH-ID : ? AET TRANS-ID: ? EDR Procedure Note Qasim Bautista L - 04/24/2016Formattin g of this note might be different from the original. CLINICAL DATA: CHRONIC CONGESTION. FINDINGS: PARANASAL SINUSES ARE CLEAR. FACIAL BON ES ARE NORMAL. ME [id number] TECH-ID : AET TRANS-ID: EDR Vini Dutton MD RAD GD Anc Result Conversion Default Order (02/20/2000 10:36 AM BEEF SELECTOR) Anatomical Region Laterality Modality Other Specimen (Source) Anatomical Location Collection Method / Collectio n Time Received Time / Laterality Volume Narrative 02/20/2000 10:36 AM BEEF SELECTOR CLINICAL DATA: ?COMPLAINES OF CHEST PAIN, COUGH. E VALUATE FOR PNEUMONIA. ?NORMAL EXAM. FINDINGS: ?NORMAL. ?MT [id number] TECH-ID : ? AET TRANS-ID: ? EDR Procedure Note Qasim Bautista - 04/24/2016Formattin g of this note might be different from the original. CLINICAL DATA: COMPLAINES OF CHEST PAIN, COUGH. EVALUA TE FOR PNEUMONIA. NORMAL EXAM. FINDINGS: NORMAL. MT [id number] TECH-ID : AET TRANS-ID: EDR Vini Dutton MD RAD GD Cholesterol (Total) (08/16/1998 11:50 AM CDT) athologist Signature Cholesterol 133 100 - 199 HP CONVERSION mg/dL Specimen (Source) Anatomical Collection Method Collection Time Re ceived Time Location / / Volume Laterality 08/16/1998 11:50 AM CDT Vini Dutton MD LAB_1 Performing Organization Address City/[facility]/ZIP Code Phon e Number HP CONVERSION Hemoglobin, Blood (08/16/1998 11:50 AM CDT) athologist Signature Hemoglobin 13.8 11.5 - 15.0 HP CONVERSION gm/dL Specimen (Source) Anatomical Collection Method Collection Time Re ceived Time Location / / Volume Laterality 08/16/1998 11:50 AM CDT Vini Dutton MD LAB_1 Performing Organization Address City/[facility]/ZIP Code Phon e Number HP CONVERSION Anc Result Conversion Default Order (07/11/1996 11:25 AM CDT) Anatomical Region Laterality Modality Other Specimen (Source) Anatomical Location Collection Method / Collectio n Time Received Time / Laterality Volume Narrative 07/11/1996 11:25 AM CDT CLINICAL DATA: ?TRAUMA 12 DAYS AGO, C/O PAIN L BUT TOCK AND FAVORS L LEG FINDINGS: ?AP PELVIS AND FROG-LEG LATERAL LEF T HIP: ??NEGATIVE. TECH-ID : ? 25 TRANS-ID: ? QTR Procedure Note Jordan Huerta - 04/24/2016 CLINICAL DATA: TRAUMA 12 DAYS AGO, C/O PAIN L BUTTOCK AND FAVORS L LEG FINDINGS: AP PELVIS AND FROG-LEG LATERAL LEFT HIP : NEGATIVE. TECH-ID : 25 TRANS-ID: QTR Vini Dutton MD RAD GD Anc Result Conversion Default Order (07/11/1996 11:25 AM CDT) Anatomical Region Laterality Modality Other Specimen (Source) Anatomical Location Collection Method / Collectio n Time Received Time / Laterality Volume Narrative 07/11/1996 11:25 AM CDT CLINICAL DATA: ?STUFFY NOSE FINDINGS: ?VÁZQUEZ' VIEW: ??MODERATE THICKENIN G IN THE INFERIOR ASPECT OF BOTH ?MAXILLARY ANTRA CONSISTENT WITH SI NUSITIS OF INDETERMINATE AGE. TECH-ID : ? 25 TRANS-ID: ? QTR Procedure Note Jordan Huerta - 04/24/2016 CLINICAL DATA: STUFFY NOSE FINDINGS: VÁZQUEZ' VIEW: MODERATE THICKENING IN TH E INFERIOR ASPECT OF BOTH MAXILLARY ANTRA CONSISTENT WITH SINUSIT IS OF INDETERMINATE AGE. TECH-ID : 25 TRANS-ID: QTR Vini Dutton MD RAD GD Anc Result Conversion Default Order (02/03/1992 5:21 PM BEEF SELECTOR) Anatomical Region Laterality Modality Other Specimen (Source) Anatomical Location Collection Method / Collectio n Time Received Time / Laterality Volume Narrative 02/03/1992 5:21 PM BEEF SELECTOR CLINICAL DATA: ?FELL, PAIN FINDINGS: ?THERE IS A DISTAL THIRD LEFT CLAVI ANNALISA FRACTURE WITH ONE SHAFT ?WIDTH INFERIOR DISPLACEMENT OF THE DISTAL FRAGMENT AND NO ?SIGNIFICANT ANGULATION. ??THERE AR E NO OTHER ABNORMALITIES. TECH-ID : ? 21 TRANS-ID: ? LAP Procedure Note Qasim Bautista MD - 04/24/2016Forma tting of this note might be different from the original. CLINICAL DATA: FELL, PAIN FINDINGS: THERE IS A DISTAL THIRD LEFT CLAVICLE F RACTURE WITH ONE SHAFT WIDTH INFERIOR DISPLACEMENT OF THE DIST AL FRAGMENT AND NO SIGNIFICANT ANGULATION. THERE ARE NO OT HER ABNORMALITIES. TECH-ID : 21 TRANS-ID: LAP Tia Jennings MD RAD GD documented in this encounter Visit Diagnoses Not on filedocumented in this encounter Care Teams Home Specialist Relationship Specialty Start Date End Date Kaelyn Lr PA-C PCP - General 05/18/10 06/05/13 [id number] [facility] [address] [place] [address] documented as of this encounter
--- OUTSIDE RECORDS SUMMARY | 2021-11-01 11:34 | XMS_ITS | Encounter Summary ---
:1990 Author Organization [email or web address] Address [address] [place] [address] Care Team Providers Name Role Phone Adeline Kaelyn Plata PA-C Primary Care Provider Encounter Details Date Type Department Care Team Description 03/01/1996 PN Conversion Only ORIENTAL ORTHODOX CONVERSION Vini Dutton Social History Tobacco Use Types Packs/Day Years Used Date Smoking Tobacco: Never Assessed Sex Assigned at Date Recorded Not on file documented as of this encounter Plan of Treatment Not on filedocumented as of this encounter Procedures Procedure Name Priority Date/Time Associated Comments Diagnosis CONVERSION DEFAULT Routine 02/29/1996 9:16 AM Res ults for this INTERFACE ORDER PERCUSSION INSTRUMENT REPAIRER procedure ar e in the results section. documented in this encounter Results Conversion Default Interface Order (02/29/1996 9:16 AM PERCUSSION INSTRUMENT REPAIRER) athologist Signature Fungus Culture [id number] HP CONVERSION Comment: NAME:DESTINI TORREZ ?FUNGAL CULTURES Source: ARM ? [id number] ? Processed: ??[id number] FINAL REPORT ----- ? [id number] ??[id number] NO YEAST, FUNGUS, OR NOCARDIA ISOLATED. ? END OF REPORT Specimen (Source) Anatomical Collection Method Collection Time Re ceived Time Location / / Volume Laterality 02/29/1996 9:16 AM PERCUSSION INSTRUMENT REPAIRER Vini Dutton MD LAB_1 Performing Organization Address City/State/ZIP Code Phon e Number HP CONVERSION documented in this encounter Visit Diagnoses Not on filedocumented in this encounter Care Teams Car Shakeout Operator Relationship Specialty Start Date End Date Kaelyn Lr PA-C PCP - General 05/18/10 06/05/13 [id number] [facility] [address] [place] [address] documented as of this encounter
--- OUTSIDE RECORDS SUMMARY | 2021-11-01 11:34 | XMS_ITS | Encounter Summary ---
:1990 Author Organization [facility] Address [address] [place] [address] Care Team Providers Name Role Phone Unavailable Primary Care Provider Unavailable Encounter Details Date Type Department Care Team Description 08/20/1998 Hospital Encounter CONV METH ODS Lu Rivas MD [address] [place] [address] [address] [facility] Lu Rivas MD [address] [place] [address] [place] [address] Social History Tobacco Use Types Packs/Day Years Used Date Smoking Tobacco: Never Assessed Sex Assigned at Date Recorded Not on file documented as of this encounter Procedure Notes Lu Rivas MD - 08/20/1998 12:01 AM CDT OR Surgeon signed by [employer] at 01/22/99 1200 Author: Lu Rivas MD Service: (none) Author Type: Physician Filed: 06/04/10 1154 Note Time: 08/20/98 0000 Status: Signed Burglar Alarm Installer: Lu Rivas MD (Physician) [id number] QCQCQC OPERATIVE REPORT DATE OF OPERATION: 08/20/1998 SURGEON: LU RIVAS M.D. PREOPERATIVE DIAGNOSIS: Multiple dysplastic and atypical nevi, scalp and neck. POSTOPERATIVE DIAGNOSIS: Multiple dysplastic and atypical nevi, scalp and neck. PROCEDURE PERFORMED: Excision multiple dysplastic and atypical nevi, scalp and neck. Closure with layer repair. ANESTHESIA: General endotracheal anesthesia. ESTIMATED BLOOD LOSS: Minimal. FINDINGS: They were right temporal, right neck, left temporal, left postauricular area. They were in the scalp, one was on the neck. One on the scalp measured 2x1.5 cm. The second one measuring 8x1 cm. The third one measured 1.5 x 1 cm size. On the neck, 8 x 6 mm. Again, all were closed with layer repair. All four were sent to pathology for permanent sectioning. DESCRIPTION OF OPERATION: The patient was taken to the operating room. After all had been marked in upright sitting position, scalp was prepped and draped in the usual sterile fashion. Marcaine was injected. One- quarter percent Marcaine with Epinephrine. They were excised to follow the hair follicles. They were closed after hemostasis was obtained using #4-0 Vicryl and #5-0 Prolene. COMPLICATIONS: The patient tolerated the procedure. Bacitracin was applied to all. She was taken to the recovery room. LU RIVAS MD JUVENTINO:[id number] C: DOCUMENT: [id number] END OF RECORD: GER PRIMARY documented in this encounter Miscellaneous Notes Miscellaneous - Lu Rivas MD - 08/20/1998 12:01 AM CDT ICD-9-CM ICD-9-CM Narrative description Code ======== DIAGNOSES Principal: CHANDRAKANT PING SCALP/SKIN NECK 216.4 PROCEDURES Provider Date Principal: RADICAL EXCIS SKIN LES LU RIVAS [id number] 86.4 documented in this encounter Plan of Treatment Not on filedocumented as of this encounter Procedures Procedure Name Priority Date/Time Associated Diagnosis Comme nts SURGICAL PATH, ROMINA Routine 08/20/1998 9:47 AM Re sults for this NICOLLET CDT procedure are i n the results section. documented in this encounter Results Pathology Report (08/20/1998 9:47 AM CDT) [facility] gist Method Time Signature Surgical SEE TEXT No normal HP CONVERSION Pathology range Comment: Patient: DESTINI TORREZ ?S URGICAL PATHOLOGY REPORT Pathology # ??[id number] ?Date Obtained: ? Date Received: DIAGNOSIS: A) ??Compound melanocytic nevus of the s kin (excisional biopsy, left presybeterian ?region). B) ??Compound melanocytic nevus of the s kin (excisional biopsy, left posterior ?auricular region). C) ??Compound melanocytic nevus of the s kin (excisional biopsy, right presybeterian ?region). D) ??Compound melanocytic nevus of the s kin (punch biopsy, right neck region). ?Laverne Hansen M.D. ?(electronic signature) ENM/ENM/jfm Date of Report: 08/21/98 Pathology # ??[id number] ?Date Obtained: ? Date Received: ORGAN/TISSUE SITE: ?Left presybeterian/Left posterior auricul ar/Right presybeterian/Right neck GROSS DESCRIPTION: A) ??The specimen is designated excisio n of a nevus from the left presybeterian ?region. ??It consists of an excis ional biopsy of a pigmented papular skin ?lesion with some underlying subcut aneous connective tissue, which measures ?approximately 12 mm in length by 8 mm in maximum width by 4 mm in maximum ?thickness. ??On gross examination, the pigmented skin lesion appears to ?have been completely excised. ?The peripheral margins and the adi p margin of the block resection are ?painted with blue dye. ??Multiple (4) full thickness blocks of the specimen ?(taken at a right angle to its hoa g axis) are submitted for microscopic ?examination (1 cassette). B) ??The specimen is designated excisio n of a nevus from the left posterior ?auricular region. ??It consists o f an excisional biopsy of a pigmented ?papular skin lesion with some unde rlying subcutaneous connective tissue, ?which measures approximately 10 mm in length by 8 mm in maximum width by 5 ?mm in maximum thickness. ??On bright s examination, the pigmented skin lesion ?appears to have been completely ex cised. ?The peripheral margins and the adi p margin of the block resection are ?painted with blue dye. ??Multiple (3) full thickness blocks of the specimen ?(taken at a right angle to its hoa g axis) are submitted for microscopic ?examination (1 cassette). C) ??The specimen is designated excisio n of a nevus from the right presybeterian ?region. ??It consists of an excis ional biopsy of a pigmented papular skin ?lesion with some underlying subcut aneous connective tissue, which measures ?approximately 12 mm in length by 8 mm in maximum width by 5 mm in maximum ?thickness. ??On gross examination, the pigmented skin lesion appears to ?have been completely excised. ?The peripheral margins and the adi p margin of the block resection are ?painted with blue dye. ??Multiple (4) full thickness blocks of the specimen ?(taken at a right angle to its hoa g axis) are submitted for microscopic ?examination (1 cassette). D) ??The specimen is designated biopsy of a nevus from the right neck region. ?It consists of a punch biopsy of a pigmented maculopapular skin lesion ?with some underlying subcutaneous connective tissue, which measures ?approximately 5 mm in length and s lightly less than 4 mm in maximum ?thickness. ??On gross examination, the pigmented skin lesion appears to ?have been completely excised. ?The peripheral margin and the deep margin of the biopsy are painted with ?blue dye. ??The specimen is bisect ed, and both halves are submitted for ?microscopic examination. ENM/hme MICROSCOPIC DESCRIPTION: A) ??The pigmented papular skin lesion e xcised from the left presybeterian region is a ?compound melanocytic nevus. The pe ripheral margins and the deep margin of ?the excision are not involved by t he nevus. B) ??The pigmented papular skin lesion e xcised from the left posterior ?auricular lesion is a compound neel anocytic nevus. The peripheral margins ?and the deep margin of the excisio n are not involved by the nevus. C) ??The pigmented papular skin lesion e xcised from the right presybeterian region is ?a compound melanocytic nevus. The peripheral margins and the deep margin ?of the excision are not involved b y the nevus. D) ??The pigmented maculopapular skin le alie excised from the right neck region ?is a compound melanocytic nevus. T he peripheral margins and the deep ?margin of the punch biopsy are not involved by the nevus. Specimen (Source) Anatomical Collection Method Collection Time Re ceived Time Location / / Volume Laterality 08/20/1998 9:47 AM CDT Lu Rivas MD LAB_1 Performing Organization Address City/State/ZIP Code Phon e Number HP CONVERSION documented in this encounter Visit Diagnoses Not on filedocumented in this encounter
--- OUTSIDE RECORDS SUMMARY | 2021-11-01 11:34 | XMS_ITS | Encounter Summary ---
:1990 Author Organization [facility] Address [address] [place] [address] Care Team Providers Name Role Phone Adeline Kaelyn Plata PA-C Primary Care Provider Encounter Details Date Type Department Care Team Description 06/11/2003 PN Conversion Only BOHEMIA CONVERSIO Lyn Edge [address] [facility] J, HOT SAW OPERATOR, DISTRI[place] [address] [facility] [place] [address] (Wo rk) Social History Tobacco Use Types Packs/Day Years Used Date Smoking Tobacco: Never Assessed Sex Assigned at Date Recorded Not on file documented as of this encounter Plan of Treatment Not on filedocumented as of this encounter Procedures Procedure Name Priority Date/Time Associated Comments Diagnosis VON WILLEBRAND Routine 06/11/2003 10:06 AM Result s for this ANTIGEN CDT procedure are i n the results section. IRON (NO IBC OR SAT) Routine 06/11/2003 10:06 AM Results for this CDT procedure are i n the results section. HEMOGLOBIN, BLOOD Routine 06/11/2003 10:06 AM Res ults for this CDT procedure are i n the results section. FERRITIN Routine 06/11/2003 10:06 AM Results for this CDT procedure are i n the results section. documented in this encounter Results (ABNORMAL) Hemoglobin, Blood (06/11/2003 10:06 AM CDT) P athologist Signature Hemoglobin 11.8 (L) 12.0 - 16.0 HP CONVERSION gm/dL Specimen (Source) Anatomical Collection Method Collection Time Re ceived Time Location / / Volume Laterality 06/11/2003 10:06 AM CDT Lyn Cardoso APRN, CNP LAB_1 Performing Organization Address [facility] Phon e Number HP CONVERSION (ABNORMAL) Ferritin (06/11/2003 10:06 AM CDT) P athologist Signature Ferritin Serum 3 (L) 10 - 291 HP CONVERSION ng/mL Specimen (Source) Anatomical Collection Method Collection Time Re ceived Time Location / / Volume Laterality 06/11/2003 10:06 AM CDT Lyn Cardoso APRN, CNP LAB_1 Performing Organization Address [facility] Phon e Number HP CONVERSION Von Willebrand Antigen (06/11/2003 10:06 AM CDT) Analysis Performed At Patho logist Time Signature Factor 8 Sent Ref 60 - 140 % HP CONVERSION Activity Comment: Factor 8 Assay ?160% ?Reference Range: 60-140 Von Adebayo Agn SHELLI ? 11 3% ?Reference Range: 55-145 Analyte Specific Reagents (ASR's) are us ed in many laboratory tests necessary for standard medical care and generally do no require FDA approval. ??This test was developed and its performance charac teristics determined by [facility]. ??It has not been cleared or approved by the [place] Food and Drug Adminis tration. Von Willbrand Antigen Sent Ref 55 - 145 % HP CONV ERSION Specimen (Source) Anatomical Collection Method Collection Time Re ceived Time Location / / Volume Laterality 06/11/2003 10:06 AM CDT Lyn Cardoso APRN, CNP LAB_1 Performing Organization Address [facility] Phon e Number HP CONVERSION (ABNORMAL) Iron (no IBC or Sat) (06/11/2003 10:06 AM CDT) P athologist Signature Iron, Serum 23 (L) 50 - 165 HP CONVERSION ug/dL Specimen (Source) Anatomical Collection Method Collection Time Re ceived Time Location / / Volume Laterality 06/11/2003 10:06 AM CDT Lyn Cardoso APRN, AVIVA LAB_1 Performing Organization Address City/State/ZIP Code Phon e Number HP CONVERSION documented in this encounter Visit Diagnoses Not on filedocumented in this encounter Care Teams Furniture Reproducer Relationship Specialty Start Date End Date Kaelyn Lr PA-C PCP - General 05/18/10 06/05/13 [address] [facility] [address] [place] [address] documented as of this encounter
--- OUTSIDE RECORDS SUMMARY | 2021-11-01 11:34 | XMS_ITS | Encounter Summary ---
:1990 Author Organization [facility] Address [address] [place] [address] Care Team Providers Name Role Phone Adeline Kaelyn Plata PA-C Primary Care Provider Encounter Details Date Type Department Care Team Description 09/04/2003 PN Conversion Only HOWIE CONVERSLyn Siegel [address] [facility] J, REED DIPPER, PROFESSOR [place] [address] [facility] [place] [address] (Wo rk) Social History Tobacco Use Types Packs/Day Years Used Date Smoking Tobacco: Never Assessed Sex Assigned at Date Recorded Not on file documented as of this encounter Plan of Treatment Not on filedocumented as of this encounter Procedures Procedure Name Priority Date/Time Associated Diagnosis Comme nts LAB MISCELLANEOUS Routine 09/04/2003 6:33 PM Resu lts for this CDT procedure are i n the results section. HEMOGLOBIN, BLOOD Routine 09/04/2003 6:33 PM Resu lts for this CDT procedure are i n the results section. documented in this encounter Results Hemoglobin, Blood (09/04/2003 6:33 PM CDT) P athologist Signature Hemoglobin 13.0 12.0 - 16.0 HP CONVERSION gm/dL Specimen (Source) Anatomical Collection Method Collection Time Re ceived Time Location / / Volume Laterality 09/04/2003 6:33 PM CDT Lyn Cardoso APRN, PROFESSOR OF RELIGIOUS STUDIES LAB_1 Performing Organization Address City/[facility] Code Phon e Number HP CONVERSION Lab miscellaneous (09/04/2003 6:33 PM CDT) P athologist Signature Result Sent Ref No normal HP CONVERSION range Comment: Test Name ? PLASMINOGEN ACTIV ATOR INHIBITOR Test Code ? Performing Lab ?[facility] PLASMINOGEN ACTIVATOR INHIBITOR (LG-1) ACTIVITY Results ? Unit ?Reference Interval LG-1 Activity ?3 u/mL ?3-56 Interpretive Note: LG-1 reference inter [place] is based on fasting macerator operator samples in adults, and levels decline du ring the morning and afternoon. ??LG-1 is an acute phase reactant. ??Up to 6.8% of normal adults were found to have undetectable LG-1 activity in one study . ??Repeated absent LG-1 activity with either absent LG-1 antigen or elevated t-PA activity may help establish the clinical significance of a <3 u/mL LG-1 activity result in a patient being evaluated for bleeding symptoms. Interpretation and Comments: ??No histor y provided for interpretation of results or recommendations. ??If interpr etation is needed, please contact the [facility] lab at [phone] ext [phone]. Assayed at [facility] [place], [place] Specimen (Source) Anatomical Collection Method Collection Time Re ceived Time Location / / Volume Laterality 09/04/2003 6:33 PM CDT Lyn Cardoso APRN, AVIVA LAB_1 Performing Organization Address City/[facility] Phon e Number HP CONVERSION documented in this encounter Visit Diagnoses Not on filedocumented in this encounter Care Teams Training Designer Relationship Specialty Start Date End Date Kaelyn Lr PA-C PCP - General 05/18/10 06/05/13 [address] [facility] [address] [place] [address] documented as of this encounter
--- OUTSIDE RECORDS SUMMARY | 2021-11-01 11:34 | XMS_ITS | Encounter Summary ---
:1990 Author Organization [facility] Address [address] [place] [address] Care Team Providers Name Role Phone Adeline Kaelyn Plata PA-C Primary Care Provider Encounter Details Date Type Department Care Team Description 06/01/2003 PN Conversion Only [place] CONVERSIO N Sneha Anderson, [address] [facility] [place] [place] [address] [facility] [address] [place] [address] (Wo rk) Social History Tobacco Use Types Packs/Day Years Used Date Smoking Tobacco: Never Assessed Sex Assigned at Date Recorded Not on file documented as of this encounter Plan of Treatment Not on filedocumented as of this encounter Procedures Procedure Name Priority Date/Time Associated Comments Diagnosis THYROID STIMULATING Routine 06/01/2003 10:28 Resu lts for this HORMONE AM CDT procedure are i n the results section. DIFFERENTIAL MANUAL Routine 06/01/2003 10:28 Resu lts for this AM CDT procedure are i n the results section. APTT (ACTIVATED PARTIAL Routine 06/01/2003 10:28 Results for this THROMBOPLASTIN TIME AM CDT procedur e are in the results section. COMPLETE BLOOD COUNT-NO Routine 06/01/2003 10:28 Results for this DIFF AM CDT procedure are i n the results section. INR/PROTIME Routine 06/01/2003 10:28 Results for this AM CDT procedure are i n the results section. documented in this encounter Results (ABNORMAL) INR/Protime (06/01/2003 10:28 AM CDT) [facility] Method Time Signature Prothrombin 11.2 (H) 8.9 - 11.1 HP CONVERSION Time sec INR 1.1 No normal HP CONVERSION range Comment: Recommendations for INR in warfarin ther apy: (Chest, Vol. 119, No. 1, Feb 2000, Suppl ement). Prevention and treatment of venous throm bosis; ? INR 2.0-3.0 Treatment of PE; Prevention of systemic embolism due to prosthetic tissue heart valves, b ileaflet mechanical valves in the aortic position , acute CA, valvular heart disease and atrial fibril lation. Mechanical prosthetic valves, (high risk ). ? INR 2.5-3.5 Prevention of recurrent myocardial infar ct. These recommended ranges serve as guidel papi. Adjustment outside these ranges may be clinically indicated. Specimen (Source) Anatomical Collection Method Collection Time Re ceived Time Location / / Volume Laterality 06/01/2003 10:28 AM CDT Sneha Anderson MD LAB_1 Performing Organization Address City/State/ZIP Code Phon e Number HP CONVERSION (ABNORMAL) Complete Blood Count-No Diff (06/01/2003 10:28 AM CDT) [facility] Method Time Signature White Blood Cell 5.6 4.5 - HP CONVERSION Count 13.5 K/cmm Red Blood Cell 4.51 4.10 - HP CONVERSION Count 5.10 m/cmm Hemoglobin 11.1 (L) 12.0 - HP CONVERSION 16.0 gm/dL Hematocrit 34.8 (L) 36.0 - HP CONVERSION 46.0 % Mean Corpuscular 77.1 (L) 78.0 - HP CONVERSION Volume 100.0 fl Mean Corpuscular 24.7 24.0 - HP CONVERSION Hemoglobin 34.0 pg Mean Corpuscular 32.0 32.0 - HP CONVERSION Hemoglobin Conc 36.5 [place] gm/dL RDW 12.9 11.0 - HP CONVERSION 15.0 % Platelet Count 299 150 - 450 HP CONVERSION k/cmm Specimen (Source) Anatomical Collection Method Collection Time Re ceived Time Location / / Volume Laterality 06/01/2003 10:28 AM CDT Sneha Anderson MD LAB_1 Performing Organization Address City/[facility]/ZIP Code Phon e Number HP CONVERSION Differential Manual (06/01/2003 10:28 AM CDT) [facility] Method Time Signature Neutrophils 51 33 - 61 % HP CONVERSION Lymphocytes 39 28 - 48 % HP CONVERSION Monocyte 8 3 - 12 % HP CONVERSION Eosinophils 1 0 - 3 % HP CONVERSION Basophils 1 0 - 1 % HP CONVERSION Platelet Normal No normal HP CONVERSION Estimate range RBC Morphology Normal No normal HP CONVERSION range Comment: RBC's appear normochromic and n ormocytic. Specimen (Source) Anatomical Collection Method Collection Time Re ceived Time Location / / Volume Laterality 06/01/2003 10:28 AM CDT Sneha Anderson MD LAB_1 Performing Organization Address [facility] Code Phon e Number HP CONVERSION APTT (Activated Partial Thromboplastin Time) (06/01/2003 10:28 AM CDT) [facility] Method Time Signature Partial 26.3 22.3 - HP CONVERSION Thromboplastin Time 29.3 sec Specimen (Source) Anatomical Collection Method Collection Time Re ceived Time Location / / Volume Laterality 06/01/2003 10:28 AM CDT Sneha Anderson MD LAB_1 Performing Organization Address City/[facility]/ZIP Code Phon e Number HP CONVERSION Thyroid Stimulating Hormone (06/01/2003 10:28 AM CDT) athologist Signature Thyroid 1.30 0.20 - HP CONVERSION Stimulating 5.50 Hormone uIU/mL Specimen (Source) Anatomical Collection Method Collection Time Re ceived Time Location / / Volume Laterality 06/01/2003 10:28 AM CDT Sneha Anderson MD LAB_1 Performing Organization Address City/[facility]/ZIP Code Phon e Number HP CONVERSION documented in this encounter Visit Diagnoses Not on filedocumented in this encounter Care Teams Kickboxing Instructor Relationship Specialty Start Date End Date Kaelyn Lr PA-C PCP - General 05/18/10 06/05/[address] [facility] [address] [place] [address] documented as of this encounter
--- OUTSIDE RECORDS SUMMARY | 2021-11-01 11:34 | XMS_ITS | Encounter Summary ---
:1990 Author Organization [facility] Address [address] [place] [address] Care Team Providers Name Role Phone AdelineEverettmallorie Plata PA-C Primary Care Provider Encounter Details Date Type Department Care Team Description 11/07/2003 Office Visit [facility] Gail Forbes, [address] [facility] [place] [address] [facility] [phone] [place], [place] [address] Social History Tobacco Use Types Packs/Day Years Used Date Smoking Tobacco: Never Assessed Sex Assigned at Date Recorded Not on file documented as of this encounter Progress Notes Gail Forbes PA-C - 11/07/2003 12:01 AM CDT Progress Notes signed by Gail Forbes PA-C at 11/07/03 1445 Author: Gail Forbes PA-C Service: (none) Author Type: Resource Filed: 06/06/10 0133 Note Time: 11/07/03 0001 Status: Signed Arch Support Technician: Gail Forbes PA-C (Resource) [facility] Acute Clinic Visit IMPRESSION: Acute Sinusitis SUBJECTIVE: Chief Complaint: Sinus pain History of Present Illness: Illness duration: 3 days Afebrile Symptoms worsening No headache No eye pain No ear pain Nasal congestion/rhinorrhea Sinus pain No sore throat No neck stiffness No cough No chest pain No shortness of breath No wheezing No nausea No vomiting No diarrhea No abdominal pain Meds This Illness: No acute medications being used Past History: No History of Respiratory Disease Recurrent Sinusitis No history of recurrent strep throats No history of recurrent sore throats Smoking: No Denies travel outside of the [place] in recent weeks Adverse Drug Reactions: None Chronic Medications: reviewed and updated on Health Profile in LastWord. OBJECTIVE: Vital Signs recorded on paper shingle General Appearance: Well-appearing Eyes: External exam is normal bilaterally Ears: Bilateral pinnae, canals and TMs normal Nose/Sinuses: moderately congested, purulent drainage, sinuses tender to percussion Oropharynx: Normal, mucous membranes moist, tonsils symmetric without redness or exudate. Neck: Supple without significant adenopathy or thyromegaly Respiratory: Lung sounds clear to auscultation without respiratory distress Cardiac: RRR without murmur Skin: Skin exam normal Lab & X-Ray: None ASSESSMENT: Acute Sinusitis PLAN: Augmentin 875 q12 hrs. x 10 days Symptomatic care Sinus Irrigation: Patient instructed and pamphlet provided RTC PRN if not gradually improving *SH~PC~URIL ~[place] Note completed on: 11/07/2003 2:46 PM documented in this encounter Plan of Treatment Not on filedocumented as of this encounter Visit Diagnoses Not on filedocumented in this encounter Care Teams Director Prospect Relationship Specialty Start Date End Date Kaelyn Lr PA-C PCP - General 05/18/10 06/05/13 [id number] [facility] [address] [place] [address] documented as of this encounter
--- OUTSIDE RECORDS SUMMARY | 2021-11-01 11:34 | XMS_ITS | Encounter Summary ---
:1990 Author Organization [employer] Address [address] [place] [address] Care Team Providers Name Role Phone Adeline Kaelyn Plata PA-C Primary Care Provider Reason for Visit Reason Comments Other Encounter Details Date Type Department Care Team Description 08/16/2003 Telephone Pedro Abdul, Other Obstetrics/Gynecolog y [facility] [address] [place] [address] [place] [address] (Wo rk) Social History Tobacco Use Types Packs/Day Years Used Date Smoking Tobacco: Never Assessed Sex Assigned at Date Recorded Not on file documented as of this encounter Progress Notes Pedro Allen APRN, CNP - 08/16/2003 5:04 PM CDT Phone Note filed by FERMÍN Bueno at 06/02/10 1307 Author: FERMÍN Bueno Service: (none) Author Type: Nurse Practitioner Filed: 06/02/10 1302 Note Time: 06/02/10 1309 Status: Signed Woodworking Belt Sander: FERMÍN Bueno (Nurse Practitioner) Pt Mother will be calling for labs [facility] Please order them to be done here. Created on [id number] 5:04pm by PEDRO ALLEN On [id number] 10:47am PEDRO ALLEN wrote: Pt' Mother called. Pt needs (1)Hgb (2) Plasminogen Activator inhibitor. Labs order documented in this encounter Plan of Treatment Not on filedocumented as of this encounter Visit Diagnoses Not on filedocumented in this encounter Care Teams Wall Steamer Relationship Specialty Start Date End Date Kaelyn Lr PA-C PCP - General 05/18/10 06/05/13 [id number] [facility] [address] [place] [address] documented as of this encounter
--- OUTSIDE RECORDS SUMMARY | 2021-11-01 11:34 | XMS_ITS | Encounter Summary ---
:1990 [facility] Address [address] [place] [address] Care Team Providers Name Role Phone Adeline Kaelyn Plata PA-C Primary Care Provider Encounter Details Date Type Department Care Team Description 11/29/2003 Office Visit [facility] [place] [address] [address] [place] [address] Social History Tobacco Use Types Packs/Day Years Used Date Smoking Tobacco: Never Assessed Sex Assigned at Date Recorded Not on file documented as of this encounter Progress Notes Ced Carrasquillo MD - 11/29/2003 12:01 AM CDT Progress Notes signed by Ced Carrasquillo MD at 01/11/04 1609 Author: Ced Carrasquillo MD Service: (none) Author Type: Physician Filed: 06/06/10 0200 Note Time: 11/29/03 0001 Status: Signed Gas Fitter Apprentice: Ced Carrasquillo MD (Physician) NAME: DESTINI TORREZ MR: [id number] ACCT: [id number] VISIT: [id number] DICTATING CLINICIAN: CED CARRASQUILLO MD JOB: [id number] CLINIC PROGRESS NOTE DATE OF VISIT: 11/29/2003 SUBJECTIVE: He continues with the sinus problems. Has headaches associated with that. Symptoms has been present for four weeks now. She was treated on the 06 of November with Augmentin 875. She says it really did not clear things up. She has not been using nasal decongestants or nasal sprays. Has not had any sinus surgeries. MEDICINES: Are current in [employer]. ADR/ALLERGIES: NO KNOWN DRUG ALLERGIES. SOCIAL HISTORY: Nonsmoker. REVIEW OF SYSTEMS: She states that amoxicillin is what she has gotten before this has worked well. Denies any shortness of breath or wheezing. No rashes or joint pains. OBJECTIVE: VS: BP: 109/71. T: 97.6. P: 74. R: 16. TMs are without erythema or fluid. Nose has swollen turbinates with erythema. There is drainage down the back of the throat. Lymph nodes are palpable at the angle of the jaw. She is tender to palpation over the maxillary sinus. LUNGS: Clear to auscultation. HEART: Regular rate and rhythm without murmur. No skin rashes. On other review of systems in fact, she denies any diarrhea. ASSESSMENT: 1. Chronic sinusitis. 2. Headache. PLAN: If this does not clear up this time around, we will need sinus x-ray. Currently advised increase liquids and steam. Prescription for Entex PSE 1 b.i.d number of 30. Amoxicillin 500 mg 2 p.o. advised actually three times a day, but not sure it is possible, but at least twice a day. I gave the number of 56 so it would be treatment for two weeks. She declines nasal steroid sprays. BOR:[id number] C: 11/30/03 14:02 DOCUMENT: [id number] STOS WIRE FINISHER documented in this encounter Plan of Treatment Not on filedocumented as of this encounter Visit Diagnoses Not on filedocumented in this encounter Care Teams Yarn Weight And Strength Tester Relationship Specialty Start Date End Date Kaelyn Lr PA-C PCP - General 05/18/10 06/05/13 [address] [facility] [address] [place] [address] documented as of this encounter
[2021-11-01 11:51] LABS: Respiratory Syncytial VirusAg* Negative (Negative)
== END 2021-11-01 11:27 | disposition home or self-care (01) ==
LOC: LKVREF 11:26
PROVIDERS: Visit Provider Student in an Organized Health Care Education/Training Program
DX: R09.81 Nasal congestion (principal); Z20.822 Contact with and (suspected) exposure to COVID-19
CPT/HCPCS: 87807

== ENCOUNTER 2022-01-15 07:14 | Day surgery (SDC) | payer OTHER, SELFPAY ==
[2022-01-15] VITALS (17 sets, daily range): BP systolic 115–147; BP diastolic 71–98; PULSE 69–97; RESP 16; TEMP 36.1–36.7; O2SAT 93–99; BMI 36.5
[2022-01-15 08:20] LABS: SARS Antigen* negative (Negative)
[2022-01-15] MEDS: LACTATED RINGERS 1000 ML 1,000 ML 100 ML IV (08:37)
[2022-01-15] MEDS: SODIUM CHLORIDE 0.9 % (FLUSH) 10 ML SYRINGE IVF (08:37)
[2022-01-15] MEDS: BUPIVACAINE 0.25% 30 ML INJECTION (10:29)
--- NOTE | 2022-01-15 11:34 | W.ANESCHARGE ---
Anesthesia Charges Start Date/Time Anesthesia Start Date: 01/15/22 Anesthesia Start Time: 09:51 Stop Date/Time Anesthesia Stop Date: 01/15/22 Anesthesia Stop Time: 11:33 Summary Emergency: No
--- NOTE | 2022-01-15 11:43 | W.PM.GYNPROC ---
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 Upon pelvic exam under anesthesia, the cervix and vagina were normal in appearance. Uterus was mobile and retroverted, of normal size and texture. There were no palpable adnexal masses. 2. Upon laparoscopy, survey of the upper abdomen revealed a normal appearance to the inferior edge of the liver, gallbladder and stomach. Bowels were grossly normal appearance. There was an omental adhesion to the anterior abdominal wall. Survey of the pelvis revealed an apparent unicornuate uterus in the left pelvis, attached to left Fallopian tube. This tube was patent upon chromopertubation. There was a band of soft tissue attached to the right side of the uterus just inferior to the usual location of the right round ligament. However, this band was thickened and elongated, and was itself attached to a small, globular muscular structure along the right pelvic sidewall, consistent in appearance with rudimentary right hemiuterus. This hemiuterus was suspended from the right pelvic sidewall by a foreshortened round ligament, and was lying almost directly over the iliac vessels. The right tube communicated with the rudimentary right hemiuterus and was itself normal in appearance. The uterine cavities did not appear to communicate upon laparoscopy, and there was no fill and spill of the right tube on chromopertubation. Bilateral ovaries were normal in appearance. The cul-de-sac and bladder reflection were normal in appearance. 3. Upon hysteroscopy, survey of the left uterus revealed a uniform appearance to the cavity, though it was generally deviated to left. There was a single left tubal ostium. Laparoscopy and hysteroscopy were performed simultaneously. The site of the soft tissue connection between the left uterus and right rudimentary uterus was examined hysteroscopically, and no patent connection was visualized. This soft tissue connection was adjacent to the right lower uterine segment. COMPLICATIONS: None PROCEDURE IN DETAIL: Patient was taken to the operating room with IV running. She was positioned in dorsal lithotomy position with her legs fully supported in Yellofin stirrups. General anesthesia was administered. She was prepped and draped in the usual sterile fashion. Bimanual exam was performed for the above-noted findings. Speculum was inserted. A single-toothed uterine manipulator was inserted through the cervix into the lower uterine segment, and affixed to the posterior cervical lip. Speculum was removed. Olea catheter was placed. Patient's legs were placed in neutral position. Attention was turned to patient's abdomen. The infraumbilical area was infiltrated with small amount of Marcaine. An infraumbilical incision was made with a scalpel and carried through to the underlying layer of fascia with a hemostat. The fascia was grasped with Saloni clamps. The 5 mm Fios Kii trocar was assembled with laparoscope within, and insufflator attached. While tenting up the abdomen manually, the trocar was passed through the anterior abdominal wall into the peritoneal cavity. Trocar was removed. Pneumoperitoneum was achieved. The balloon tip of the port was inflated. One additional port site was placed in the patient's left lower quadrant, just superior medial to the left ASIS. This site was infiltrated with a small amount of Marcaine. A 5 mm incision was made with a scalpel at this site. 5 mm Fios Kii trocar was passed through the anterior abdominal wall into the peritoneal cavity, under direct visualization and without complication. The balloon tip was inflated, holding the port in place. Survey of abdomen and pelvis revealed the above-noted findings. With tour coordinator scope maintained in patient's abdomen, patient's legs were placed in lithotomy position. Uterine manipulator was removed. Speculum was inserted. Cervix was grasped with single-tooth tenaculum. Cervix was serially dilated to accommodate the hysteroscope. This was assembled with saline inflow in place. Line was flushed of bubbles. Hysteroscope was passed through the cervix into the uterine cavity for the above-noted findings. With laparoscopic guidance, I was able to determine the area of the origin a daniels of the soft tissue band of connection between the uteri, and was also able to confirm that the single tubal ostium that was visualized was in fact the left tube. Hysteroscope was removed. A hysterosalpingogram catheter was then advanced through the cervix into the lower uterine segment. The balloon tip was inflated, holding the catheter in place. Saline containing dilute methylene blue was flushed through the catheter into the uterus. Under laparoscopic examination, the left tube was found to be patent in this fashion. There was no backflow through the right tube, and no discoloration of the right rudimentary ovary or the soft tissue connection between the uteri. The HSG catheter was removed, as was the tenaculum. Speculum exam confirmed hemostasis. Olea catheter was removed. Patient's legs were placed back in neutral position. All instruments had been removed from the patient's abdomen. Pneumoperitoneum was released. The balloon tips of the port sites were deflated, and the ports were removed. The skin of each port site was closed with a subcuticular stitch of 4 0 Vicryl. Surgical glue was applied above this. Patient tolerated procedure well and was taken to recovery area in stable condition.
[2022-01-15] MEDS: HYDROmorphone 0.5 mg/0.5 ml inj IVP (11:54)
--- NOTE | 2022-01-15 12:32 | W.ANESCHARGE ---
Anesthesia Charges Start Date/Time Anesthesia Start Date: 01/15/22 Anesthesia Start Time: 09:51 Stop Date/Time Anesthesia Stop Date: 01/15/22 Anesthesia Stop Time: 11:33 Summary Emergency: No
[2022-01-15] MEDS: OXYCODONE 5 MG TABLET PO (12:33)
[2022-01-15] MEDS: ONDANSETRON 2 MG/ML inj 4 MG IVP (13:01)
[2022-01-15] MEDS: ACETAMINOPHEN 500 MG TABLET 1000 MG PO (13:58)
== END 2022-01-15 14:20 | disposition home or self-care (01) ==
PROVIDERS: Anesthesiology; Visit Provider Obstetrics & Gynecology
PROC: (CPT 49320; principal; 2022-01-15 08:30)
PROC: 0UDB8ZZ Extraction of Endometrium, Via Natural or Artificial Opening Endoscopic (ICD-10-PCS; CPT 58558; 2022-01-15 08:30)
DX: Q51.4 Unicornate uterus (principal); Q51.818 Other congenital malformations of uterus
CPT/HCPCS: 58350; 00840; 36415; 81025; 86850; 86900; 86901; 87426; Q9968; A9270; C1758; J0330; J1100; J1170; J1885; J2250; J2405; J2704; J2710; J3010; J3490; J7120

== ENCOUNTER 2023-06-16 13:43 | Outpatient (CLI) | payer OTHER, SELFPAY ==
--- OUTSIDE RECORDS SUMMARY | 2023-06-16 13:46 | XMS_ITS | Clinical Summary ---
Author Name Unknown Organization [employer] [facility] Address [place], [place] [address] Care Team Providers Care Cnc Cutting Operator Name Role Phone Ana Mehta DOUGH PANNER Primary Care Provider [phone] Encounters Date Type Department Care Team Description 04/12/2023 Lab Requisition [facility] [phone] Tsering Eaton MD from Last 3 Months Social History Tobacco Use Types Packs/Day Years Used Date Smoking Tobacco: Never Assessed Social Connections Answer Date Recorded Frequency of Communication with Friends and Fami ly Not on file 02/15/2021 Financial Resource Strain Answer Date R ecorded Difficulty of Paying Living Expenses Not on file 02/15/2021 Difficulty of Paying Living Expenses Not on file 02/15/2021 Sex and Gender Information Value Date Recorded Sex Assigned at Not on file Gender Identity Not on file Sexual Orientation Not on file Plan of Treatment Health Maintenance Due Date Last Done Comments Tdap 2000 Depression screening for age 12+ 2001 HIV for age 15-65 2004 BMI (ht and wt on same day) for age 18+ 08/05/2007 Hepatitis C screening for age 18-79 08/05/2007 Tetanus booster 2009 COVID-19 vaccine series ( season) 2022 Influenza for age 9-49 10/17/2023 Pap test for age 21-65 04/09/2026 , 04/09/2023, 04/26/2020, Additional history exists Pneumococcal series for age 6-64 Aged Out No longer eligible based on patient's age to complete this topic Procedures Procedure Name Priority Date/Time Associated Diagnosis Comments LAB TRACKING EVENT Routine 04/12/2023 4 :00 PM [employer] EDUCATION PROGRAM COORDINATOR THIN PREP PAP SCREEN IMAGED Routine 04/09/2023 4:00 PM [employer] HPV THIN PREP Routine 04/09/2023 4:00 PM [employer] from Last 3 Months Results * LAB TRACKING EVENT (04/12/2023 4:00 PM [employer]) Other (Other) Client Collect / Unknown 04/12/2023 4:00 PM [employer] 04/12/2023 4:05 PM [employer] Tsering Eaton MD LAB BILL ONLY [facility] [address] [place] [address], * EDUCATION PROGRAM COORDINATOR THIN PREP PAP SCREEN IMAGED (04/09/2023 4:00 PM [employer]) Case Report Gynecologic Cytology Report ? Case: [id number] ? Authorizing Provider: ??Tsering Eaton MD ?? Collected: ? 04/09/2023 1600 ? Ordering Location: ? [facility] ?Received: ?04/13/2023 1047 ? First Screen: ?Lily Cordon ? Specimen: ?EDUCATION PROGRAM COORDINATOR ThinPrep Vial Screening, Cervical ? 04/20/2023 4:01 PM [facility] INTERPRETATION/ RESULT NEGATIVE FOR INTRAEPITHELIAL LESION OR MALIGNANCY (NIL) (none) 04/20/2023 4:01 PM [facility] IMEN ADEQUACY Satisfactory for evaluation Endocervical component present 04/20/2023 4:01 PM [facility] HPV REQUEST HPV and PAP 04/20/2023 4:01 PM [facility] Date of LMP 03/31/2023 04/20/2023 4:01 PM [facility] Last Pap Date 04/26/2020 04/20/2023 4:01 PM [facility] Last Pap Result NIL 4:01 PM [facility] Comment:HPV - Abnormal Pap or Nardin Bx in last 5 years No 04/20/2023 4:01 PM [facility] Nardin Bx Done Today No 04/20/2023 4:01 PM [facility] Additional Information 04/20/2023 4:01 PM [facility] Comment: Interpreted at [facility] - [address], [place] [address] Automated Review Successful 04/20/2023 4:01 PM [facility] Comment:Specimen processed s uccessfully by automated wet cotton feeder device, ThinPrep Imaging System, [employer] ANCILLARY TESTING EDUCATION PROGRAM COORDINATOR HPV Ordered, Please see separate report 04/20/2023 4:01 PM [facility] Note The pap test is a screening technique, not a diagnostic procedure. It is used primarily to screen for squamous cancers and precursor lesions. Published studies have shown that it is subject to both false negative and false positive results. The pap test should not be used as the sole means to diagnose or exclude pre-malignant and malignant lesions. 04/20/2023 4:01 PM [employer]ACIT[employer] [facility] Other (Cervical) 04/09/2023 4:00 PM [employer] 04/13/2023 10:47 AM [employer] Tsering Eaton MD PATHOLOGY/CYTOLOG Y Performing Organization Address [facility] Co de Phone Number [facility] [address] [place] [address], * HPV HIGH RISK (04/09/2023 4:00 PM [employer]REG[employer]) TYPE 16 Negative Negative 04/14/2023 1:39 PM [employer]REGNATOR [employer]ROLYT[employer]ACITORS [facility] TYPE 18 Negative Negative 04/14/2023 1:39 PM IMPREGNATOR ELECTROLYTIC CAPACITORS [facility] OTHER HIGH RISK TYPES Negative Negative 04/14/2023 1:39 PM IMPREGNATOR ELECTROLYTIC CAPACITORS [facility] Other (Cervical) 04/09/2023 4:00 PM [employer] 04/13/2023 10:47 AM IMPREG[employer]ATOR [employer]ACITORS Narrative [facility] - 04/14/2023 1:39 PM [employer]REG[employer]ATOR [employer] HPV types 16, 18, 31, 33, 35, 39, 45, 51, 52, 56, 58, 59, 66 and 68 DNA were undetectable or below the pre-set threshold. Methodology: Ten Stephanie 4800 HPV Test Tsering Eaton MD MICROBIOLOGY Performing Organization Address [facility] Co de Phone Number [facility] [address] [place] [address], from Last 3 Months Care Teams Cnc Cutting Operator Relationship Specialty [place] [address] [place] [address] PCP - General Nurse Practitioner 07/20/18
--- OUTSIDE RECORDS SUMMARY | 2023-06-16 13:46 | XMS_ITS ---
Author Name Unknown Organization [facility] Address [address] [place] [address] Care Team Providers Care Desktop Architect Name Role Phone Unavailable Unavailable Unavailable Surgery Details Not on file Complications Check Surgery Details section. Procedure Estimated Blood Loss Check Surgery Details section. Procedure Findings Check Surgery Details section. Procedure Specimens Taken Check Surgery Details section.
--- OUTSIDE RECORDS SUMMARY | 2023-06-16 13:46 | XMS_ITS | Clinical Summary ---
Author Name Unknown Organization [facility] Address [address] [facility] [address] Care Team Providers Care Financial Sales Consultant Name Role Phone [facility] [place] [facility] Allergies Active Allergy Reactions Criticality Noted Date Comments Promethazine Other (See Comments) 01/11/2017 seizures Medications No known medications Social History Tobacco Use Types Packs/Day Years Used Date Smoking Tobacco: Never Smokeless Tobacco: Never Alcohol Use Standard Drinks/Week Comments Yes 0 (1 standard drink = 0.6 oz pur e alcohol) social Adolescent Education Answer Date Record ed Getting School Help Needed Not on file 11/06 Sex and Gender Information Value Date Recorded Sex Assigned at Not on file Gender Identity Not on file Sexual Orientation Not on file Last Filed Vital Signs Vital Sign Reading Time Taken Comments Blood Pressure 132/73 01/03/2018 12:30 PM FUSELAGE FRAMER Pulse 84 01/03/2018 10:51 AM FUSELAGE FRAMER Temperature 36.6 ??C (97.9 ??F) 01/03/2018 10:[address] Respiratory Rate 10 01/03/2018 12:30 PM FUSELAGE FRAMER Oxygen Saturation 100% 01/03/2018 12:30 PM FUSELAGE FRAMER Inhaled Oxygen Concentration - - Weight 95.3 kg (210 lb) 01/11/2017 1:10 PM FUSELAGE FRAMER Height - - Body Mass Index - - Plan of Treatment Not on file Care Teams Financial Sales Consultant Relationship Specialty Start Date End Date [facility], [facility] [address] [place] [address] PCP - General 07/14/22
--- OUTSIDE RECORDS SUMMARY | 2023-06-16 13:46 | XMS_ITS | Clinical Summary ---
Author Name Unknown Organization [facility] Address [address] [place] [address] Care Team Providers Care Advice Nurse Name Role Phone Ana Mehta APRN, CNP Primary Care Provid er Source Comments You are receiving this document as you are listed as the primary care provider,follow-up provider, or the patient has been referred to you for consultation.This is in compliance with the Medicare and[facility] Hospital[facility] EHR Incentive Program,which states Providers who transition their patient to another setting of careor provider of care or refers their patient to another provider of care shouldprovide summary care record for each transition of care or referral. [facility] Allergies Active Allergy Reactions Criticality Noted Date Comments Promethazine Syncope 05/17/2007 Medications Medication Sig Dispensed Refills Start Date End Date Status fluticasone (AKA FLONASE) 50 MCG/ACT nasal solution Place 2 sprays into each nostril daily (every 24 hours). Dose is for each nostril. 48 g 3 02/13/2015 Active ALBUterol sulfate HFA 108 (90 BASE) MCG/ACT inhaler Inhale 1-2 Puffs every 4 hours as needed for Shortness of Breath. 18 g 12/01/2016 Active zolpidem (AMBIEN) 5 MG tablet Take 1 Tablet by mouth at bedtime as needed. For the night of the study if needed. 1 Tablet 05/30/2018 Active fluticasone propionate (FLONASE) 50 MCG/ACT nasal solutionIndications:A llergic rhinitis, unspecified seasonality, unspecified trigger INSTILL 2 SPRAYS INTO EACH NOSTRIL EVERY DAY 48 g 12/18/2018 Active Active Problems Problem Noted Date Diagnosed Date Retained foreign body of foot 07/27/2016 Encounter for insertion of i ntrauterine contraceptive device 02/07/2015 Nasal polyps 01/05/2014 Resolved Problems Problem Noted Date Diagnosed Date Resolved Date Contraceptive management 05/11/2009 Overview: LW Onset: 2007 ; Contraceptive Management NOS Varicella 04/08/2004 06/08/2004 Overview: LW Onset: childhood ; Varicella Zoster Immunizations Name Administration Dates Next Due 4vHPV (Gardasil) 11/18/2007,07/27/2007, 8 DTP 08/28/1994, 2,02/17/1990, 990,1989 Flu Vac Preserv Free (3+yrs) 02/21/2010 HepB Adult (Engerix-B, 20+ y rs, 3 dose series) 09/21/1995,04/02/1995,08/28/1994 Hib (ActHIB) 11/07/1990,06/06/1990,02/17/1990 MMR 12/17/1999,11/07/1990 OPV, Trivalent (Orimune or tOPV) 995,05/16/1991,02/17/1990, 990,1989 TDAP (BOOSTRIX) 10/15/2011 Td 10/06/2001 Family History [...] 6 (1 standard drink = 0.6 oz pur e alcohol) few drinks/week Sex and Gender Information Value Date Recorded Sex Assigned at Not on file Gender Identity Not on file Sexual Orientation Not on file Last Filed Vital Signs Vital Sign Reading Time Taken Comments Blood Pressure 129/86 03/11/2020 2:34 PM ROTARY DRILL OPERATOR HELPER Pulse 86 03/11/2020 2:34 PM ROTARY DRILL OPERATOR HELPER Temperature 36.9 ??C (98.5 ??F) 01/11/2017 1 1:22 AM ROTARY DRILL OPERATOR HELPER Respiratory Rate 20 01/11/2017 11:2 2 AM ROTARY DRILL OPERATOR HELPER Oxygen Saturation 100% 08/30/2018 9:27 AM CDT Inhaled Oxygen Concentration - - Weight 115.6 kg (254 lb 12.8 oz) 03/11/2020 2:34 PM ROTARY DRILL OPERATOR HELPER Height 170.2 cm (5' 7.01) 08/30/2018 9:27 AM CD T Body Mass Index 39.9 08/30/2018 9:27 AM CDT Plan of Treatment Health Maintenance Due Date Last Done Comments Hep C Screening (Preventive Services) 1989 HIV Screening (Preventive Services) 2005 Cervical Cancer Screening 01/20/20192015, 11/10/2012, 11/10/2012 (Completed), Additional history exists Adult Preventive Visit 01/27/2019 01/27/2017, 2015 DTaP/Tdap/Td (7 - Tdap) 10/14/2021 10/15/19 12, 10/06/2001, 08/28/1994, Additional history exists COVID-19 Vaccine ( season) 2022 05/22/2020 Influenza (#1) 2022 02/21/2010 Zoster/Shingles (1 of 2) 08/05/2039 Hib Completed 11/07/1990, 05/17, 02/17/1990 IPV (Polio) Completed 08/28/1994, 04/17, 02/17/1990, Additional history exists HepB Completed 09/21/1995, 03/18, 08/28/1994 HPV Vaccine Completed 03/27/2020, 10/0 04/2007, 07/27/2007, Additional history exists HepA Aged Out No longer eligi ble based on patient's age to complete this topic MCV4 Aged Out No longer eligi ble based on patient's age to complete this topic Pneumococcal Aged Out No longer eligi ble based on patient's age to complete this topic Procedures Procedure Name Priority Date/Time Associated Diagnosis Comments ANATOMICAL PATH LIQUID BASED Routine 01/21/2016 4:32 PM ROTARY DRILL OPERATOR HELPER from Last 3 Months or Most Recently Relevant to Health Maintenance Results * Pap Smear (01/21/2016 4:32 PM ROTARY DRILL OPERATOR HELPER) 01/21/2016 4:32 PM ROTARY DRILL OPERATOR HELPER Narrative PN SOFT - 01/23/2016 5:16 PM ROTARY DRILL OPERATOR HELPER FINAL GYNECOLOGICAL CYTOLOGY REPORT Pathology #: [id number] ?Date Obtained: 01/21/2016 ? Date Received: 01/22/2016 INTERPRETATION/RESULTS: Negative for Intraepithelial Lesion or Malignancy. SPECIMEN ADEQUACY: Satisfactory for Evaluation. ??Endocervical cells/transformation zone component present. Verified on 01/23/2016 ??by MINIE BACCAM, CT(ASCP) (electronic signature) CLINICAL NOTES: ?Abnormal bleeding: No, LMP: 12/31/15, Menstrual status: None ?Apply, Current form of therapy: IUD LIQUID BASED PAP SMEAR SPECIMEN TYPE: ?ROUTINE CERVICAL PAP TEST PLEASE NOTE: The pap smear is a screening test designed to aid in the detection of cervical cancer and its precursor lesions. It is not a diagnostic procedure and should not be used as the sole means of detecting cervical cancer. Both false-positive and false-negative reports may occur. Performed at [facility], [address] [place] [address] [address] Dexter APRN, [facility] [address] [place], [place] [id number] from Last 3 Months or Most Recently Relevant to Health Maintenance Advance Directives * Full Code (Latest Code Status on File) Date Activated Date Inactivated Comments 07/30/2016 9:40 AM 07/30/2016 2:00 PM Care Teams Advice Nurse Relationship Specialty Start Date End Date Ana Mehta, SKATING RINK MANAGER, MANUFACTURING COORDINATOR [address] [place] [address] PCP - General 07/11/13
--- OUTSIDE RECORDS SUMMARY | 2023-06-16 13:46 | XMS_ITS | Referral Summary ---
Author Name Unknown Organization [facility] Address [address] [place] [address] Care Team Providers Care Caustic Operator Name Role Phone Unavailable Primary Care Provider Unavailabl e Source Comments Patient records contain information from all sites at [facility]. For routine questions regarding patient records, call [phone] during business hours, M-F 8:00 AM - 5:00 PM Central Time. Record requests for emergency care only can be directed to [phone] at any time.[facility] Allergies Active Allergy Reactions Criticality Noted Date Comments Promethazine Other (see comments) 05/17/2007 seizures Medications Medication Sig Dispensed Refills Start Date End Date Status ., 1.5-30 mg-mcg tablet Take 1 tablet by mouth daily. 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 No 02/17/2022 Within the last year, have y ou been humiliated or emotionally abused in other ways by your partner or ex-partner? No Within the last year, have y ou been kicked, hit, slapped, or otherwise physically hurt by your partner or ex-partner? No 02/17/2022 Within the last year, have y ou been raped or forced to have any kind of sexual activity by your partner or ex-partner? No 02/17/2022 Social Connection and Isolat ion Panel [NHANES] Answer Date Recorded In a typical week, how many times do you talk on the phone with family, friends, or neighbors? More than three times a week 02/17/2022 How often do you get togethe r with friends or relatives? Once a week 02/17/2022 How often do you attend chur or sikh services? Never 02/17/2022 Do you belong to any clubs o r organizations such as hoahaoism groups, unions, fraternal or athletic groups, or school groups? No 02/17/2022 How often do you attend meet ings of the clubs or organizations you belong to? Never 02/17/2022 Are you , , di vorced, , never , or living with a partner? 02/17/2022 AUDIT-C Answer Date Recorded Q1: How often do you have a drink containing alc ohol? 2-4 times a month 02/17/2022 Q2: How many drinks containi ng alcohol do you have on a typical day when you are drinking? 3 or 4 02/17/2022 Q3: How often do you have si x or more drinks on one occasion? Less than monthly 02/17/2022 Overall Financial Resource Strain (CARDIA) Answe r Date Recorded How hard is it for you to pa y for the very basics like food, housing, medical care, and heating? Not very hard 02/17/2022 PHQ-2 Answer Date Recorded PHQ-2 Score 1 02/19/2022 [facility] of Occupat ional Health - Occupational Stress Questionnaire Answer Date Recorded Do you feel stress - tense, restless, nervous, or anxious, or unable to sleep at night because your mind is troubled all the time - these days? To some extent 02/17/2022 Exercise Vital Sign Answer Date Recorde d On average, how many days pe r week do you engage in moderate to strenuous exercise (like a brisk walk)? 2 days 02/17/2022 On average, how many minutes do you engage in exercise at this level? 30 min 02/17/2022 Hunger Vital Sign Answer Date Recorded Within the past 12 months, y ou worried that your food would run out before you got the money to buy more. Never true 02/17/19 Within the past 12 months, t he food you bought just didn't last and you didn't have money to get more. Never true 02/17/2022 PRAPARE - Transportation Answer Date Re corded In the past 12 months, has l ack of transportation kept you from medical appointments or from getting medications? No 04/2022 In the past 12 months, has l ack of transportation kept you from meetings, work, or from getting things needed for daily living? No 02/17/2022 Housing Stability Vital Sign Answer Bennett e Recorded In the last 12 months, was t here a time when you were not able to pay the mortgage or rent on time? No 02/17/2022 In the last 12 months, how many places have you lived? 1 02/17/2022 In the last 12 months, was t here a time when you did not have a steady place to sleep or slept in a halfway (including now)? No 02/17/2022 Nutrition Answer Date Recorded Nutrition: EVOO Fat Source No 02/17 On average, how many serving s of fruits and vegetables do you eat per day (serving size is equal to 1 cup or approximately the size of a tennis ball)? 0-1 02/17/2022 Dental Answer Date Recorded Dental: Regular Dentist Yes 02/17/19 Employment Answer Date Recorded Employment status Employed and actively working without restrictions 02/17/2022 Education Answer Date Recorded What is the highest level of school you have completed or the highest degree you have received? Bachelor's degree (e.g., BA, AB, BS) 02/17/2022 Sex and Gender Information Value Date Recorded Sex Assigned at Female 02/17/2022 5:16 PM ENDOSCOPY REGISTERED NURSE Gender Identity Female 02/17/2022 5:16 PM ENDOSCOPY REGISTERED NURSE Sexual Orientation Straight 02/17/2022 5: 16 PM ENDOSCOPY REGISTERED NURSE Last Filed Vital Signs Vital Sign Reading Time Taken Comments Blood Pressure 120/65 08/28/2021 10:20 AM CDT Pulse 83 08/28/2021 10:20 AM CDT Temperature 36.7 ??C (98.1 ??F) 08/28/2021 10:20 AM C DT Respiratory Rate 16 08/28/2021 10:20 AM CDT Oxygen Saturation 98% 08/28/2021 10:20 AM CDT Inhaled Oxygen Concentration - - Weight 109 kg (239 lb 3.2 oz) 08/27/2021 6:15 PM CDT Height 172.7 cm (5' 8) 08/27/2021 6:15 PM CDT Body Mass Index 36.37 08/27/2021 6:15 PM CDT Plan of Treatment Not on file Advance Directives For more information, please contact: [phone] * Full Code (Latest Code Status on File) Date Activated Date Inactivated Comments 08/27/2021 4:51 PM 08/28/2021 1:43 PM Question Answer Comments Full Code: Discussed
--- OUTSIDE RECORDS SUMMARY | 2023-06-16 13:46 | XMS_ITS | Referral Summary ---
Author Name Unknown Organization [place] Address [address] [facility] [place] [address] Care Team Providers Care Engine Repairer Service Name Role Phone Clinic, [facility] Primary [...] Comments Blood Pressure 132/73 01/03/2018 12:30 PM AIRPLANE DISPATCH CLERK Pulse 84 01/03/2018 10:51 AM AIRPLANE DISPATCH CLERK Temperature 36.6 ??C (97.9 ??F) 01/03/2018 10:[address] Respiratory Rate 10 01/03/2018 12:30 PM AIRPLANE DISPATCH CLERK Oxygen Saturation 100% 01/03/2018 12:30 PM AIRPLANE DISPATCH CLERK Inhaled Oxygen Concentration - - Weight 95.3 kg (210 lb) 01/11/2017 1:10 PM AIRPLANE DISPATCH CLERK Height - - Body Mass Index - - Plan of Treatment Not on file Care Teams Engine Repairer Service Relationship Specialty Start Date End Date Clinic, Nichole [facility] [place] [id number] [place] [address] PCP - General 07/14/22
--- OUTSIDE RECORDS SUMMARY | 2023-06-16 13:46 | XMS_ITS | Clinical Summary ---
Author Name Unknown Organization [facility] Address [address] [place] [address] Care Team Providers Care Underground Mining Section Foreman Name Role Phone Unavailable Primary Care Provider Unavailabl e Source Comments Patient records contain information from all sites at [facility]. For routine questions regarding patient records, call [phone] during business hours, M-F 8:00 AM - 5:00 PM Central Time. Record requests for emergency care only can be directed to [phone] at any time.[facility] Allergies Active Allergy Reactions Criticality Noted Date [...] How often do you attend chur or confucianism services? Never 02/17/2022 Do you belong to any clubs o r organizations such as congregational groups, unions, fraternal or athletic groups, or [...] Answer Date Recorded PHQ-2 Score 1 02/19/2022 [facility] [place] of Occupat ional Health - Occupational Stress [...] place to sleep or slept in a care home (including now)? No 02/17/2022 Nutrition Answer Date [...] Sex Assigned at Female 02/17/2022 5:16 PM LABORATORY ENGINEER Gender Identity Female 02/17/2022 5:16 PM LABORATORY ENGINEER Sexual Orientation Straight 02/17/2022 5: 16 PM LABORATORY ENGINEER Last Filed Vital Signs Vital Sign Reading [...] HIV Screening 1989 Hepatitis C Screening 1989 COVID-19 Vaccine ( season) 2022 01/28/2021, 06/12/2020, 05/22/2020 Depression Screening (Annual PHQ-2) 02/15/2023 DTaP,Tdap,and Td Vaccines (8 - Td or Tdap) 04/23/2031 04/22/2021, 10/15/2011, 08/28/1994, Additional history exists Hepatitis B Vaccines Completed 09/21/1995, 04/02/1995, 08/28/1994 HPV Vaccines Completed 03/27/2020, 1004/2007, 11/18/2007, Additional history exists Influenza Vaccine Completed 11/05/2022, , 02/21/2010 Pneumococcal vaccine (0-64 years) Aged Out No longer eligible based on patient's age to complete this topic Advance Directives For more information, please contact: [phone] * Full Code (Latest Code Status on File) Date Activated Date Inactivated Comments 08/27/2021 4:51 PM 08/28/2021 1:43 PM Question Answer Comments Full Code: Discussed
== END 2023-06-16 13:44 | disposition home or self-care (01) ==
LOC: LKVREF 13:44
PROVIDERS: Visit Provider Otolaryngology
DX: G25.81 Restless legs syndrome (principal); Z13.0 Encounter for screening for diseases of the blood and blood-forming organs and certain disorders involving the immune mechanism
CPT/HCPCS: 82728

== ENCOUNTER 2023-06-28 11:14 | Outpatient (CLI) | payer OTHER, SELFPAY ==
--- OUTSIDE RECORDS SUMMARY | 2023-06-28 11:16 | XMS_ITS | Clinical Summary ---
Author Name Unknown Organization [facility] Address [place], [place] [address] Care Team Providers Care Telehealth Coordinator Name Role Phone Ana Mehta HARBOR ENGINEER Primary Care Provider [phone] Encounters Date Type Department Care Team Description 04/12/2023 Lab Requisition [facility] [phone] Tsering Eaton MD from Last 3 Months [...] TRACKING EVENT Routine 04/12/2023 4 :00 PM ENVIRONMENTAL SERVICES WORKER APARTMENT HOTEL MANAGER THIN PREP PAP SCREEN IMAGED Routine 04/09/2023 4:00 PM ENVIRONMENTAL SERVICES WORKER HPV THIN PREP Routine 04/09/2023 4:00 PM ENVIRONMENTAL SERVICES WORKER from Last 3 Months Results * LAB TRACKING EVENT (04/12/2023 4:00 PM ENVIRONMENTAL SERVICES WORKER) Other (Other) Client Collect / Unknown 04/12/2023 4:00 PM ENVIRONMENTAL SERVICES WORKER 04/12/2023 4:05 PM ENVIRONMENTAL SERVICES WORKER Tsering Eaton MD LAB BILL ONLY [facility] [address] [place] [address], * APARTMENT HOTEL MANAGER THIN PREP PAP SCREEN IMAGED (04/09/2023 4:00 PM ENVIRONMENTAL SERVICES WORKER) Case Report Gynecologic Cytology Report ? Case: [id number] ? Authorizing Provider: ??Tsering Eaton MD ?? Collected: ? 04/09/2023 1600 ? Ordering Location: ? [facility] ?Received: ?04/13/2023 1047 ? First Screen: ?Lily Cordon ? Specimen: ?APARTMENT HOTEL MANAGER ThinPrep Vial Screening, Cervical ? 04/20/2023 4:01 PM [facility] INTERPRETATION/ RESULT NEGATIVE FOR INTRAEPITHELIAL LESION OR MALIGNANCY (NIL) (none) 04/20/2023 4:01 PM [facility] IMEN ADEQUACY Satisfactory for evaluation Endocervical component present 04/20/2023 4:01 PM [facility] HPV REQUEST HPV and PAP 04/20/2023 4:01 PM [facility] Date of LMP 03/31/2023 04/20/2023 4:01 PM [facility] Last Pap Date 04/26/2020 04/20/2023 4:01 PM [facility] Last Pap Result NIL 4:01 PM [facility] Comment:HPV - Abnormal Pap or Max Bx in last 5 years No 04/20/2023 4:01 PM [facility] Max Bx Done Today No 04/20/2023 4:01 PM [facility] Additional Information 04/20/2023 4:01 PM [facility] Comment: Interpreted at [facility], Central Laboratory - [address], [place] [address] Automated Review Successful 04/20/2023 4:01 PM [facility] Comment:Specimen processed s uccessfully by automated tire changer device, ThinPrep Imaging System, [employer] ANCILLARY TESTING APARTMENT HOTEL MANAGER HPV Ordered, Please see separate report 04/20/2023 4:01 PM [facility] Note The pap test is a screening technique, not a diagnostic procedure. It is used primarily to screen for squamous cancers and precursor lesions. Published studies have shown that it is subject to both false negative and false positive results. The pap test should not be used as the sole means to diagnose or exclude pre-malignant and malignant lesions. 04/20/2023 4:01 PM ENVIRONMENTAL SERVICES WORKER [facility] Other (Cervical) 04/09/2023 4:00 PM ENVIRONMENTAL SERVICES WORKER 04/13/2023 10:47 AM ENVIRONMENTAL SERVICES WORKER Tsering Eaton MD PATHOLOGY/CYTOLOG Y Performing Organization Address [facility] Co de Phone Number [facility] [address] [place] [address], * HPV HIGH RISK (04/09/2023 4:00 PM ENVIRONMENTAL SERVICES WORKER) TYPE 16 Negative Negative 04/14/2023 1:39 PM ENVIRONMENTAL SERVICES WORKER [facility] TYPE 18 Negative Negative 04/14/2023 1:39 PM ENVIRONMENTAL SERVICES WORKER [facility] OTHER HIGH RISK TYPES Negative Negative 04/14/2023 1:39 PM ENVIRONMENTAL SERVICES WORKER [facility] Other (Cervical) 04/09/2023 4:00 PM ENVIRONMENTAL SERVICES WORKER 04/13/2023 10:47 AM ENVIRONMENTAL SERVICES WORKER Narrative [facility] - 04/14/2023 1:39 PM ENVIRONMENTAL SERVICES WORKER HPV types 16, 18, 31, 33, 35, 39, 45, 51, 52, 56, 58, 59, 66 and 68 DNA were undetectable or below the pre-set threshold. Methodology: Ten Stephanie 4800 HPV Test Tsering Eaton MD MICROBIOLOGY Performing Organization Address [facility] Co de Phone Number [facility] [address] [place] [address], from Last 3 Months Care Teams Telehealth Coordinator Relationship Specialty [place] [address] [place] [address] PCP - General Nurse Practitioner 07/20/18
--- OUTSIDE RECORDS SUMMARY | 2023-06-28 11:16 | XMS_ITS ---
Author Name Unknown Organization [facility] Address [address] [place] [address] Care Team Providers Care Photogravure Press Operator Name Role Phone Unavailable Unavailable Unavailable Surgery Details Not on file Complications Check Surgery Details section. Procedure Estimated Blood Loss Check Surgery Details section. Procedure Findings Check Surgery Details section. Procedure Specimens Taken Check Surgery Details section.
--- OUTSIDE RECORDS SUMMARY | 2023-06-28 11:16 | XMS_ITS | Referral Summary ---
Author Name Unknown Organization [place] Address [address] [facility] [place] [address] Care Team Providers Care Program Services Planner Name Role Phone Clinic, [facility] Primary [...] Comments Blood Pressure 132/73 01/03/2018 12:30 PM PERFORATOR TYPIST Pulse 84 01/03/2018 10:51 AM PERFORATOR TYPIST Temperature 36.6 ??C (97.9 ??F) 01/03/2018 10:[address] Respiratory Rate 10 01/03/2018 12:30 PM PERFORATOR TYPIST Oxygen Saturation 100% 01/03/2018 12:30 PM PERFORATOR TYPIST Inhaled Oxygen Concentration - - Weight 95.3 kg (210 lb) 01/11/2017 1:10 PM PERFORATOR TYPIST Height - - Body Mass Index - - Plan of Treatment Not on file Care Teams Program Services Planner Relationship Specialty Start Date End Date Clinic, [facility] [place] [id number] [place] [address] PCP - General 07/14/22
--- OUTSIDE RECORDS SUMMARY | 2023-06-28 11:16 | XMS_ITS | Clinical Summary ---
Author Name [facility] Address [address] [place] [address] Care Team Providers Care Lab Scientist Name Role Phone Ana Mehta APRN, CNP Primary Care Provid er Source Comments You are receiving this document as you are listed as the primary care provider,follow-up provider, or the patient has been referred to you for consultation.This is in compliance with the Medicare and[facility] EHR Incentive Program,which states Providers who transition their patient to another setting of careor provider of care or refers their patient to another provider of care shouldprovide summary care record for each transition of care or referral. [facility] Allergies Active Allergy Reactions Criticality Noted Date [...] Comments Blood Pressure 129/86 03/11/2020 2:34 PM ENTRY LEVEL FINANCIAL ANALYST Pulse 86 03/11/2020 2:34 PM ENTRY LEVEL FINANCIAL ANALYST Temperature 36.9 ??C (98.5 ??F) 01/11/2017 1 1:22 AM ENTRY LEVEL FINANCIAL ANALYST Respiratory Rate 20 01/11/2017 11:2 2 AM ENTRY LEVEL FINANCIAL ANALYST Oxygen Saturation 100% 08/30/2018 9:27 AM CDT Inhaled Oxygen Concentration - - Weight 115.6 kg (254 lb 12.8 oz) 03/11/2020 2:34 PM ENTRY LEVEL FINANCIAL ANALYST Height 170.2 cm (5' 7.01) 08/30/2018 9:27 [...] COVID-19 Vaccine ( season) 2022 05/22/2020 Influenza (Season Ended) 2023 02/21/2010 Zoster/Shingles (1 of 2) 08/05/2039 Hib [...] PATH LIQUID BASED Routine 01/21/2016 4:32 PM ENTRY LEVEL FINANCIAL ANALYST from Last 3 Months or Most Recently Relevant to Health Maintenance Results * Pap Smear (01/21/2016 4:32 PM ENTRY LEVEL FINANCIAL ANALYST) 01/21/2016 4:32 PM ENTRY LEVEL FINANCIAL ANALYST Narrative PN SOFT - 01/23/2016 5:16 PM ENTRY LEVEL FINANCIAL ANALYST FINAL GYNECOLOGICAL CYTOLOGY REPORT Pathology #: [id number] ?Date Obtained: 01/21/2016 ? Date Received: 01/22/2016 [...] and false-negative reports may occur. Performed at [facility], [address] [place] [id number] Courtney Dexter APRN, [facility] [address] [place], [place] [id number] from Last 3 Months or Most Recently Relevant to Health Maintenance Advance Directives * Full Code (Latest Code Status on File) Date Activated Date Inactivated Comments 07/30/2016 9:40 AM 07/30/2016 2:00 PM Care Teams Lab Scientist Relationship Specialty Start Date End Date Ana Mehta, CHILD CARE CENTER ADMINISTRATOR, COMPANY SECRETARY [address] [place] [address] PCP - General 07/11/13
--- OUTSIDE RECORDS SUMMARY | 2023-06-28 11:16 | XMS_ITS | Clinical Summary ---
Author Name Unknown Organization [facility] Address [address] [place] [address] Care Team Providers Care Judicial Clerk Name Role Phone Unavailable Primary Care Provider Unavailabl e Source Comments Patient records contain information from all sites at [facility]. For routine questions regarding patient records, call [phone] during business hours, M-F 8:00 AM - 5:00 PM Central Time. Record requests for emergency care only can be directed to [phone] at any time.[facility] Allergies Active Allergy Reactions Criticality Noted Date Comments Promethazine Other (see comments) 05/17/2007 seizures Medications Medication Sig Dispensed Refills Start Date End Date Status .5, 1.5-30 mg-mcg tablet Take 1 tablet by [...] How often do you attend chur or judaism services? Never 02/17/2022 Do you belong to any clubs o r organizations such as oriental orthodox groups, unions, fraternal or athletic groups, or [...] Date Recorded PHQ-2 Score 1 02/19/2022 [facility] [place] of Occupat ional Health - Occupational Stress [...] place to sleep or slept in a group home (including now)? No 02/17/2022 Nutrition Answer [...] Sex Assigned at Female 02/17/2022 5:16 PM BLIND HOOKER Gender Identity Female 02/17/2022 5:16 PM BLIND HOOKER Sexual Orientation Straight 02/17/2022 5: 16 PM BLIND HOOKER Last Filed Vital Signs Vital Sign Reading [...] Advance Directives For more information, please contact: [phone] * Full Code (Latest Code Status on File) Date Activated Date Inactivated Comments 08/27/2021 4:51 PM 08/28/2021 1:43 PM Question Answer Comments Full Code: Discussed
--- OUTSIDE RECORDS SUMMARY | 2023-06-28 11:16 | XMS_ITS | Referral Summary ---
Author Name Unknown Organization [facility] Address [address] [place] [address] Care Team Providers Care Welder Apprentice Arc Name Role Phone Unavailable Primary Care Provider Unavailabl e Source Comments Patient records contain information from all sites at [facility]. For routine questions regarding patient records, call [phone] during business hours, M-F 8:00 AM - 5:00 PM Central Time. Record requests for emergency care only can be directed to [phone] at any time.[facility] Allergies Active Allergy Reactions Criticality Noted Date Comments Promethazine Other (see comments) 05/17/2007 seizures Medications Medication Sig Dispensed Refills Start Date End Date Status .5, , 1.5-30 mg-mcg tablet Take 1 tablet by [...] How often do you attend chur or sabianism services? Never 02/17/2022 Do you belong to any clubs o r organizations such as sikhism groups, unions, fraternal or athletic groups, or [...] Answer Date Recorded PHQ-2 Score 1 02/19/2022 [employer] [employer] [place] of Occupat ional Health - Occupational Stress [...] place to sleep or slept in a nursing home (including now)? No 02/17/2022 Nutrition Answer [...] Sex Assigned at Female 02/17/2022 5:16 PM LEATHER GOODS I ASSEMBLER Gender Identity Female 02/17/2022 5:16 PM LEATHER GOODS I ASSEMBLER Sexual Orientation Straight 02/17/2022 5: 16 PM LEATHER GOODS I ASSEMBLER Last Filed Vital Signs Vital Sign Reading [...] Advance Directives For more information, please contact: [phone] * Full Code (Latest Code Status on File) Date Activated Date Inactivated Comments 08/27/2021 4:51 PM 08/28/2021 1:43 PM Question Answer Comments Full Code: Discussed
--- OUTSIDE RECORDS SUMMARY | 2023-06-28 11:16 | XMS_ITS | Clinical Summary ---
Author Name Unknown Organization [facility] Address [address] [facility] [place] [address] Care Team Providers Care Entry Level Manufacturing Engineer Name Role Phone [facility], [facility] Primary [...] Comments Blood Pressure 132/73 01/03/2018 12:30 PM COMPUTER SCIENCE INSTRUCTOR Pulse 84 01/03/2018 10:51 AM COMPUTER SCIENCE INSTRUCTOR Temperature 36.6 ??C (97.9 ??F) 01/03/2018 10:[address] Respiratory Rate 10 01/03/2018 12:30 PM COMPUTER SCIENCE INSTRUCTOR Oxygen Saturation 100% 01/03/2018 12:30 PM COMPUTER SCIENCE INSTRUCTOR Inhaled Oxygen Concentration - - Weight 95.3 kg (210 lb) 01/11/2017 1:10 PM COMPUTER SCIENCE INSTRUCTOR Height - - Body Mass Index - - Plan of Treatment Not on file Care Teams Entry Level Manufacturing Engineer Relationship Specialty Start Date End Date [facility], [facility] [place] [id number] [place] [id number] PCP - General 07/14/22
--- NOTE | 2023-08-03 08:37 | W.PM.SLEEP ---
Sleep Study Details Details Interpreting Provider: Rhianna Date of Sleep Study: 06/28/23 Sleep Study Details: STUDY TYPE:? Home unattended ? BMI:? Not recorded ORDERING PROVIDER:? Rhianna INDICATION:? Concern about sleep apnea ? SLEEP SUMMARY:? 546 minutes monitored RESPIRATORY SUMMARY:? AHI 15.5 Low oxygen 88 0.1% of study oxygen less than 90% Snoring 96.4% PERIODIC LIMB MOVEMENTS OF SLEEP:? Not recorded CARDIAC:? Range 67-111, mean 82.6 IMPRESSION:? Moderate obstructive sleep apnea RECOMMENDATION: Treatment options include CPAP, dental appliance and/or airway expansion surgery.
== END 2023-06-28 11:15 | disposition home or self-care (01) ==
LOC: SLEEP 11:15
PROVIDERS: Visit Provider Otolaryngology
DX: G47.33 Obstructive sleep apnea (adult) (pediatric) (principal)
CPT/HCPCS: 95806